=== PATIENT | female | born 1955 | race Caucasian/White ===

== ENCOUNTER → 2016-09-04 | Outpatient (CLI) | payer MEDICARE, MEDICAID ==
[~2016-09-04] MED LIST: /LINE60TA OR; ASCO25TA PO; ASPI81TA85 PO; CALC25TA PO; DARV100T OR; FERR325T3 PO; MULTCAP PO; NYST10CR TOP; OXYC10TA12 PO; OXYC15TA76 PO; PREV15CA11 PO; PREV30CA11 PO; PROT20TA11 PO; TYLE325T5 PO; VITA-193 PO; VITA500046 PO; VITA500T OR; XOPEAER INH; ZANA4TAB PO
[2016-09-04 09:26] LABS: MEAN CORPUSCULAR HEMOGLOBIN 29.3 pg (27.0-33.0); MEAN CORPUSCULAR HGB CONC 32.2 g/dl (32.0-36.5); RED CELL DISTRIBUTION WIDTH 12.5 % (11.5-14.5); WHITE BLOOD COUNT 5.9 K/mm3 (4.0-10.0)
[2016-09-04 10:05] LABS: ALBUMIN/GLOBULIN RATIO 1.18 (1.00-1.93); ALKALINE PHOSPHATASE 186 U/L (45-117); ALT/SGPT 19 U/L (12-78); ANION GAP 9 MEQ/L (8-16); AST/SGOT 14 U/L (15-37); BILIRUBIN,TOTAL 0.4 MG/DL (0.2-1.0); BLOOD UREA NITROGEN 26 MG/DL (7-18); CALCIUM LEVEL 9.2 MG/DL (8.8-10.2); CARBON DIOXIDE LEVEL 31 MEQ/L (21-32); CHLORIDE LEVEL 103 MEQ/L (98-107); CHOLESTEROL LEVEL 155 MG/DL (<200); CREATININE FOR GFR 0.69 MG/DL (0.55-1.02); FERRITIN 11 NG/ML (8-252); FREE T4 1.06 NG/DL (0.76-1.46); GLOMERULAR FILTRATION RATE > 60.0 (>45); GLUCOSE, FASTING 86 MG/DL (80-110); PERCENT SATURATION 13.4 % (13.2-37.4); POTASSIUM SERUM 4.4 MEQ/L (3.5-5.1); SODIUM LEVEL 143 MEQ/L (136-145); TOTAL IRON BINDING CAPACITY 419 UG/DL (250-450); TOTAL PROTEIN 7.4 GM/DL (6.4-8.2); TRIGLYCERIDES LEVEL 74 MG/DL (<150)
[2016-09-04 11:39] LABS: VITAMIN B12 LEVEL 495 PG/ML (247-911)
== END ==
LOC: M LAB 08:42
PROVIDERS: ATTEND Surgery
DX: K91.2 Postsurgical malabsorption, not elsewhere classified (principal); Z79.899 Other long term (current) drug therapy

== ENCOUNTER → 2016-11-15 | Outpatient (CLI) | payer MEDICARE, MEDICAID ==
--- NOTE | 2016-11-15 09:56 | REPMRS ---
Patient History The patient states she has not had a clinical breast exam in over a year. Family history of colorectal cancer in maternal cousin at age 32. Digital Woman Screen Mammo: November 15, 2016 - Exam #: [id number] Bilateral CC and MLO view(s) were taken. Technologist: Prachi Gerard, Technologist Prior study comparison: November 11, 2015, digital woman screen mammo performed at [facility] to [facility]. September 06, 2014, digital woman screen mammo performed at [facility] to [facility]. FINDINGS: There are scattered fibroglandular densities. There has been no change in the appearance of the mammogram from the prior studies. There is a mild amount of residual fibroglandular tissue which is fairly symmetric. There is no interval development of dominant mass, architectural distortion, or clustered microcalcification suggestive of malignancy. ASSESSMENT: BI-RADS/ACR category 1 mammogram. Negative. Recommendation Routine screening mammogram in 1 year (for women over age 40). This mammogram was interpreted with the aid of an FDA-approved computer-aided dectection system. Electronically Signed By: Samson Pinzon MD 11/15/16 0956
== END ==
LOC: M WHC 08:33
PROVIDERS: ATTEND Family Medicine
DX: Z12.31 Encounter for screening mammogram for malignant neoplasm of breast (principal)

== ENCOUNTER → 2016-11-29 | Outpatient (CLI) | payer MEDICARE ==
[2016-11-29 13:59] LABS: ALBUMIN 3.6 GM/DL (3.2-5.2); PERCENT SATURATION 13.3 % (13.2-37.4)
== END ==
LOC: M LAB 08:39
PROVIDERS: ATTEND Orthopaedic Surgery
DX: Z51.81 Encounter for therapeutic drug level monitoring (principal); Z79.899 Other long term (current) drug therapy; D64.9 Anemia, unspecified

== ENCOUNTER → 2016-11-29 | Outpatient (CLI) | payer MEDICARE ==
[2016-11-29 09:59] LABS: EOS # 0.2 K/mm3 (0.0-0.50); EOS % 3.1 % (0.0-3.0); LARGE UNSTAINED CELL # 0.1 K/mm3 (0.0-0.4); LARGE UNSTAINED CELL % 2.2 % (0.0-4.0); LYMPH # 1.5 K/mm3 (1.5-4.5); LYMPH % 29.6 % (24.0-44.0); MEAN CORPUSCULAR HEMOGLOBIN 27.8 pg (27.0-33.0); MEAN CORPUSCULAR HGB CONC 30.9 g/dl (32.0-36.5); MEAN CORPUSCULAR VOLUME 89.9 fl (80.0-96.0); MONO # 0.2 K/mm3 (0.0-0.8); MONO % 4.7 % (0.0-5.0); NEUTROPHILS # 2.9 K/mm3 (1.8-7.7); NEUTROPHILS % 59.4 % (36.0-66.0); PLATELET COUNT, AUTOMATED 272 k/mm3 (150-450); RED CELL DISTRIBUTION WIDTH 13.5 % (11.5-14.5); WHITE BLOOD COUNT 4.9 K/mm3 (4.0-10.0)
[2016-11-29 13:57] LABS: PERCENT SATURATION 13.3 % (13.2-37.4)
[2016-11-30 11:08] LABS: PRETREATED FOLATE FOR RBCFOL 8.7 NG/ML
== END ==
LOC: M LAB 08:32
PROVIDERS: ATTEND Family Medicine
DX: D50.9 Iron deficiency anemia, unspecified (principal); R73.01 Impaired fasting glucose

== ENCOUNTER → 2016-11-29 | Outpatient (CLI) | payer MEDICARE ==
[2016-11-29 10:00] LABS: MEAN CORPUSCULAR HEMOGLOBIN 27.7 pg (27.0-33.0); MEAN CORPUSCULAR HGB CONC 30.8 g/dl (32.0-36.5); MEAN CORPUSCULAR VOLUME 89.9 fl (80.0-96.0); RED CELL DISTRIBUTION WIDTH 13.5 % (11.5-14.5)
[2016-11-29 10:32] LABS: ALBUMIN 3.6 GM/DL (3.2-5.2); ALBUMIN/GLOBULIN RATIO 1.24 (1.00-1.93); ALKALINE PHOSPHATASE 158 U/L (45-117); ALT/SGPT 23 U/L (12-78); ANION GAP 7 MEQ/L (8-16); AST/SGOT 18 U/L (15-37); BILIRUBIN,TOTAL 0.4 MG/DL (0.2-1.0); BLOOD UREA NITROGEN 21 MG/DL (7-18); CALCIUM LEVEL 8.5 MG/DL (8.8-10.2); CARBON DIOXIDE LEVEL 29 MEQ/L (21-32); CHLORIDE LEVEL 106 MEQ/L (98-107); CHOLESTEROL LEVEL 152 MG/DL (<200); CREATININE FOR GFR 0.67 MG/DL (0.55-1.02); FERRITIN 8 NG/ML (8-252); GLOMERULAR FILTRATION RATE > 60.0 (>45); GLUCOSE, FASTING 83 MG/DL (80-110); PERCENT SATURATION 13.3 % (13.2-37.4); POTASSIUM SERUM 4.5 MEQ/L (3.5-5.1); SODIUM LEVEL 142 MEQ/L (136-145); TOTAL IRON BINDING CAPACITY 398 UG/DL (250-450); TOTAL PROTEIN 6.5 GM/DL (6.4-8.2); TRIGLYCERIDES LEVEL 99 MG/DL (<150)
[2016-11-29 11:00] LABS: VITAMIN B12 LEVEL 437 PG/ML (247-911)
== END ==
LOC: M LAB 08:35
PROVIDERS: ATTEND Surgery
DX: K91.2 Postsurgical malabsorption, not elsewhere classified (principal); Z51.81 Encounter for therapeutic drug level monitoring; Z79.899 Other long term (current) drug therapy; D50.9 Iron deficiency anemia, unspecified; R73.01 Impaired fasting glucose

== ENCOUNTER 2016-12-05 10:00 | Outpatient (RCR) | payer MEDICARE | END 2016-12-23 | LOC: M PT 10:00 | PROVIDERS: ATTEND Orthopaedic Surgery | DX: Z51.89 Encounter for other specified aftercare (principal); M17.12 Unilateral primary osteoarthritis, left knee ==

== ENCOUNTER → 2017-01-23 | Outpatient (RCR) | payer MEDICARE | LOC: M PT 01-11 08:32 | PROVIDERS: ATTEND Orthopaedic Surgery | DX: Z51.89 Encounter for other specified aftercare (principal); M17.12 Unilateral primary osteoarthritis, left knee | CPT/HCPCS: 97110; 97161; G8978; G8979 ==

== ENCOUNTER → 2017-02-22 | Outpatient (RCR) | payer MEDICARE ==
[~2017-02-22] MED LIST changes: +LEVAINH INH; -PREV15CA11 PO; +PREV15CA18 PO; +PREV1CAP PO; -PREV30CA11 PO; -XOPEAER INH
== END ==
LOC: M PT 01-28 09:26
PROVIDERS: ATTEND Orthopaedic Surgery
DX: Z51.89 Encounter for other specified aftercare (principal); M17.12 Unilateral primary osteoarthritis, left knee
CPT/HCPCS: 97110; G8978; G8979

== ENCOUNTER 2017-03-05 09:44 | Outpatient (RCR) | payer MEDICARE | END 2017-03-25 | LOC: M PT 09:44 | PROVIDERS: ATTEND Orthopaedic Surgery | DX: Z51.89 Encounter for other specified aftercare (principal); Z96.652 Presence of left artificial knee joint; M17.12 Unilateral primary osteoarthritis, left knee ==

== ENCOUNTER → 2017-04-05 | Outpatient (REF) | payer MEDICARE, MEDICAID ==
[2017-04-05 14:12] LABS: BASO # 0.1 K/mm3 (0.0-0.2); EOS # 0.2 K/mm3 (0.0-0.50); EOS % 2.5 % (0.0-3.0); LARGE UNSTAINED CELL # 0.1 K/mm3 (0.0-0.4); LARGE UNSTAINED CELL % 1.9 % (0.0-4.0); LYMPH # 1.9 K/mm3 (1.5-4.5); LYMPH % 24.2 % (24.0-44.0); MEAN CORPUSCULAR HEMOGLOBIN 29.2 pg (27.0-33.0); MEAN CORPUSCULAR HGB CONC 31.3 g/dl (32.0-36.5); MEAN CORPUSCULAR VOLUME 93.3 fl (80.0-96.0); MONO # 0.4 K/mm3 (0.0-0.8); MONO % 5.6 % (0.0-5.0); NEUTROPHILS # 4.8 K/mm3 (1.8-7.7); NEUTROPHILS % 64.9 % (36.0-66.0); PLATELET COUNT, AUTOMATED 318 k/mm3 (150-450); RED CELL DISTRIBUTION WIDTH 13.1 % (11.5-14.5); RETIC HEMOGLOBIN CONTENT CHr 29.7 PG (24-36); RETICULOCYTE ABSOLUTE ADVIA212 57 x10(9)/L (17-77); WHITE BLOOD COUNT 7.4 K/mm3 (4.0-10.0)
[2017-04-05 14:25] LABS: THYROID PEROXIDASE ANTIBODY 90.6 U/ML (<60.0); VITAMIN B12 LEVEL 434 PG/ML (247-911)
[2017-04-05 14:33] LABS: ALBUMIN 4.1 GM/DL (3.2-5.2); ALBUMIN/GLOBULIN RATIO 1.21 (1.00-1.93); ALKALINE PHOSPHATASE 207 U/L (45-117); ALT/SGPT 18 U/L (12-78); ANION GAP 9 MEQ/L (8-16); AST/SGOT 13 U/L (15-37); BILIRUBIN,TOTAL 0.4 MG/DL (0.2-1.0); BLOOD UREA NITROGEN 22 MG/DL (7-18); CALCIUM LEVEL 9.3 MG/DL (8.8-10.2); CARBON DIOXIDE LEVEL 29 MEQ/L (21-32); CHLORIDE LEVEL 105 MEQ/L (98-107); CREATININE FOR GFR 0.75 MG/DL (0.55-1.02); FERRITIN 20 NG/ML (8-252); FREE T4 1.08 NG/DL (0.76-1.46); GLOMERULAR FILTRATION RATE > 60.0 (>45); GLUCOSE, FASTING 81 MG/DL (80-110); PERCENT SATURATION 12.5 % (13.2-45.0); POTASSIUM SERUM 4.8 MEQ/L (3.5-5.1); SODIUM LEVEL 143 MEQ/L (136-145); TOTAL IRON BINDING CAPACITY 400 UG/DL (250-450); TOTAL PROTEIN 7.5 GM/DL (6.4-8.2)
[2017-04-09 00:06] LABS: H PYLORI SERUM QUANT IgG ABY <0.9 U/mL (0.0-0.8)
== END ==
LOC: M SFHCPLAZ 09:50
PROVIDERS: ATTEND Family Medicine
DX: D50.9 Iron deficiency anemia, unspecified (principal); R10.13 Epigastric pain; D51.9 Vitamin B12 deficiency anemia, unspecified; R73.01 Impaired fasting glucose; E55.9 Vitamin D deficiency, unspecified; Z79.899 Other long term (current) drug therapy
CPT/HCPCS: 36415; 80053; 82306; 82607; 82728; 83036; 83550; 83690; 83970; 84439; 84443; 85025; 85046; 86256; 86376; 86677; 86800; 96372; G0463; J3420

== ENCOUNTER 2017-08-07 15:47 | Emergency (ER) | payer MEDICARE, MEDICAID ==
[~2017-08-07] VITALS: Ht 162.6 cm; Wt 103.2 kg
[2017-08-07] MEDS ORDERED: METO25TA4 (15:59)
[2017-08-07] MEDS ORDERED: SUCR1TAB56 (15:59)
[2017-08-07] MEDS ORDERED: XARE20TA (15:59)
[2017-08-07] MEDS ORDERED: FLEC25TA (15:59)
[2017-08-07] MEDS ORDERED: PROTPAK PO (15:59)
--- NOTE | 2017-08-07 17:23 | REP ---
Chest x-ray: Three views. History: Shortness of breath. Comparison study: September 10, 2014. Findings: EKG monitoring electrodes overlie the chest. The lungs are well inflated and free of infiltrate. The heart is not felt to be enlarged. Pulmonary vasculature is not increased. There are degenerative changes in the thoracic spine and a mild dextroconvex curve is again seen unchanged. Impression: No active disease. Signed by Kenton Mir MD 08/08/2017 10:56 A
[2017-08-07 17:25] LABS: BASO # 0.1 10^3/uL (0.0-0.2); BASO % 0.8 % (0.0-1.0); EOS # 0.2 10^3/uL (0.0-0.50); EOS % 2.5 % (0.0-3.0); IMMATURE GRANULOCYTE % 0.2 % (0-0); LYMPH # 2.4 10^3/uL (1.5-4.5); LYMPH % 27.4 % (24.0-44.0); MEAN CORPUSCULAR HEMOGLOBIN 28.2 pg (27.0-33.0); MEAN CORPUSCULAR HGB CONC 31.4 g/dl (32.0-36.5); MEAN CORPUSCULAR VOLUME 89.9 fl (80.0-96.0); MONO # 0.5 10^3/uL (0.0-0.8); MONO % 5.8 % (0.0-5.0); NEUTROPHILS # 5.6 10^3/uL (1.8-7.7); NEUTROPHILS % 63.3 % (36.0-66.0); PLATELET COUNT, AUTOMATED 357 10^3/uL (150-450); RED CELL DISTRIBUTION WIDTH 13.3 % (11.5-14.5); WHITE BLOOD COUNT 8.8 10^3/uL (4.0-10.0)
[2017-08-07 17:32] LABS: ANION GAP 5 MEQ/L (8-16); BLOOD UREA NITROGEN 19 MG/DL (7-18); CALCIUM LEVEL 9.3 MG/DL (8.8-10.2); CARBON DIOXIDE LEVEL 31 MEQ/L (21-32); CHLORIDE LEVEL 103 MEQ/L (98-107); CREATININE FOR GFR 0.77 MG/DL (0.55-1.02); GLOMERULAR FILTRATION RATE > 60.0 (>45); GLUCOSE, FASTING 83 MG/DL (80-110); POTASSIUM SERUM 4.3 MEQ/L (3.5-5.1); SODIUM LEVEL 139 MEQ/L (136-145)
[2017-08-07 17:39] VITALS: BP 142/65
--- NOTE | 2017-08-08 04:47 | ECGEPIP ---
Stationary ECG Study [facility] - ED Test Date: 2017-08-07 Pat Name: NISHA MUNSON Department: Room: - Gender: F Vp Purchasing: viv : 1955 Requested By: Taz Kriby Order Number: [id number] Reading MD: Taz Suarez Measurements Intervals [place] Rate: 64 P: 64 TN: 203 QRS: 30 QRSD: 113 T: 42 QT: 416 QTc: 431 Interpretive Statements SINUS RHYTHM WITH FREQUENT SUPRAVENTRICULAR PREMATURE COMPLEXES MODERATE INTRAVENTRICULAR CONDUCTION DELAY SIMILAR TO 09/16/15 Electronically Signed On 08-08-2017 4:47:30 EST by Taz Suarez
== END 2017-08-07 17:58 | disposition home or self-care (01) ==
LOC: M ED 15:47
DX: I48.0 Paroxysmal atrial fibrillation (principal); R60.0 Localized edema; I10 Essential (primary) hypertension; K76.0 Fatty (change of) liver, not elsewhere classified; Z86.14 Personal history of Methicillin resistant Staphylococcus aureus infection; Z86.718 Personal history of other venous thrombosis and embolism; Z79.899 Other long term (current) drug therapy; Z88.5 Allergy status to narcotic agent; Z88.0 Allergy status to penicillin; Z88.2 Allergy status to sulfonamides; Z88.8 Allergy status to other drugs, medicaments and biological substances; Z88.1 Allergy status to other antibiotic agents

== ENCOUNTER → 2017-08-13 | Outpatient (REF) | payer MEDICARE, MEDICAID ==
[~2017-08-13] MED LIST changes: +FLEC25TA; +METO25TA4; +PROTPAK PO; +SUCR1TAB56; +XARE20TA
[2017-08-13 15:57] LABS: BASO # 0.1 10^3/uL (0.0-0.2); BASO % 1.4 % (0.0-1.0); EOS # 0.2 10^3/uL (0.0-0.50); EOS % 2.4 % (0.0-3.0); IMMATURE GRANULOCYTE % 0.1 % (0-0); LYMPH # 2.1 10^3/uL (1.5-4.5); LYMPH % 29.7 % (24.0-44.0); MEAN CORPUSCULAR HEMOGLOBIN 27.7 pg (27.0-33.0); MEAN CORPUSCULAR HGB CONC 30.7 g/dl (32.0-36.5); MONO # 0.4 10^3/uL (0.0-0.8); MONO % 6.3 % (0.0-5.0); NEUTROPHILS # 4.2 10^3/uL (1.8-7.7); NEUTROPHILS % 60.1 % (36.0-66.0); PLATELET COUNT, AUTOMATED 358 10^3/uL (150-450); RED CELL DISTRIBUTION WIDTH 13.5 % (11.5-14.5)
[2017-08-13 16:25] LABS: ALBUMIN 4.1 GM/DL (3.2-5.2); ALBUMIN/GLOBULIN RATIO 1.21 (1.00-1.93); ALKALINE PHOSPHATASE 230 U/L (45-117); ALT/SGPT 17 U/L (12-78); ANION GAP 5 MEQ/L (8-16); AST/SGOT 14 U/L (7-37); BILIRUBIN,TOTAL 0.4 MG/DL (0.2-1.0); BLOOD UREA NITROGEN 20 MG/DL (7-18); CALCIUM LEVEL 8.8 MG/DL (8.8-10.2); CARBON DIOXIDE LEVEL 30 MEQ/L (21-32); CHLORIDE LEVEL 106 MEQ/L (98-107); CREATININE FOR GFR 0.68 MG/DL (0.55-1.02); FERRITIN 14 NG/ML (8-252); FREE T4 1.08 NG/DL (0.76-1.46); GLOMERULAR FILTRATION RATE > 60.0 (>45); GLUCOSE, FASTING 90 MG/DL (80-110); PERCENT SATURATION 13.4 % (13.2-45.0); POTASSIUM SERUM 4.6 MEQ/L (3.5-5.1); SODIUM LEVEL 141 MEQ/L (136-145); TOTAL IRON BINDING CAPACITY 409 UG/DL (250-450); TOTAL PROTEIN 7.5 GM/DL (6.4-8.2)
== END ==
LOC: M SFHCPLAZ 12:16
PROVIDERS: ATTEND Family Medicine
DX: R73.01 Impaired fasting glucose (principal); D50.9 Iron deficiency anemia, unspecified; E06.3 Autoimmune thyroiditis

== ENCOUNTER → 2017-08-14 | Outpatient (CLI) | payer MEDICARE, MEDICAID ==
--- NOTE | 2017-08-20 18:20 | SLEEPHOME ---
DATE OF PROCEDURE: 08/14/2017 ORDERED BY: Dr. Guevara Diagnostic home sleep testing was performed due to concern for the obstructive sleep apnea syndrome. For testing, a NOX-T3 respiratory monitoring device was used. Continuous record was made of pulse, oxygen saturation, air flow, chest and abdominal strain and body position. 11 hours and 59 minutes of data were reviewed. There were 9 hours and 2 minutes marked as time in bed. During the interval marked time in bed, there were 149 respiratory events identified of 10 seconds in duration or greater for a respiratory event index of 16.5. The events were primarily obstructive, though mixed and central apneas were also seen. Baseline pulse rate 55 beats per minute. Pulse rate ranged 37 to 73. Baseline saturation 94%. Lowest oxygen saturation 88%. Testing was performed in both the supine and nonsupine positions. IMPRESSION: Abnormal home sleep testing with repetitive respiratory events and oxygen desaturation to 88% with a respiratory event index of 16.5 is consistent with the obstructive sleep apnea syndrome. RECOMMENDATION: Given the progression identified when compared to previous testing in the spring, the patient should be referred for a formal sleep evaluation and in laboratory pressure titration.
== END ==
LOC: M SLEEP HO 10:52
PROVIDERS: ATTEND Family Medicine
DX: G47.30 Sleep apnea, unspecified (principal)

== ENCOUNTER → 2017-09-21 | Outpatient (CLI) | payer MEDICARE, MEDICAID | LOC: M SLEEP 20:00 | DX: G47.33 Obstructive sleep apnea (adult) (pediatric) (principal); G47.61 Periodic limb movement disorder | CPT/HCPCS: 95811 ==

== ENCOUNTER 2017-10-18 15:45 | Emergency (ER) | payer MEDICARE, MEDICAID ==
[2017-10-18] MEDS: MORPHINE 10 MG/ML 1ML VIAL (J2270) IM (19:12)
== END 2017-10-18 20:49 | disposition home or self-care (01) ==
LOC: M ED 15:45
DX: M25.552 Pain in left hip (principal); I10 Essential (primary) hypertension; I48.91 Unspecified atrial fibrillation; E66.9 Obesity, unspecified; E55.9 Vitamin D deficiency, unspecified; D64.9 Anemia, unspecified; R73.01 Impaired fasting glucose; Z88.8 Allergy status to other drugs, medicaments and biological substances; Z88.5 Allergy status to narcotic agent; Z88.4 Allergy status to anesthetic agent; Z88.2 Allergy status to sulfonamides; Z88.0 Allergy status to penicillin; Z88.1 Allergy status to other antibiotic agents; Z79.899 Other long term (current) drug therapy; Z79.01 Long term (current) use of anticoagulants
CPT/HCPCS: J2270

== ENCOUNTER → 2017-10-24 | Outpatient (CLI) | payer MEDICARE | LOC: M SMT 11:03 | DX: M16.7 Other unilateral secondary osteoarthritis of hip (principal) | CPT/HCPCS: 72110; G0463 ==

== ENCOUNTER 2017-11-26 10:34 | Outpatient (RCR) | payer MEDICARE, MEDICAID | END 2017-12-23 | LOC: M PT 10:34 | DX: Z51.89 Encounter for other specified aftercare (principal); M47.27 Other spondylosis with radiculopathy, lumbosacral region | CPT/HCPCS: 97110 ==

== ENCOUNTER → 2017-12-10 | Outpatient (CLI) | payer MEDICARE, MEDICAID | LOC: M PAIN 15:30 | DX: M54.16 Radiculopathy, lumbar region (principal); I10 Essential (primary) hypertension; J30.9 Allergic rhinitis, unspecified; K76.0 Fatty (change of) liver, not elsewhere classified; E55.9 Vitamin D deficiency, unspecified; R73.01 Impaired fasting glucose; K21.9 Gastro-esophageal reflux disease without esophagitis; G47.33 Obstructive sleep apnea (adult) (pediatric); E66.01 Morbid (severe) obesity due to excess calories; Z68.41 Body mass index [BMI] 40.0-44.9, adult; Z79.01 Long term (current) use of anticoagulants; Z79.899 Other long term (current) drug therapy; Z88.0 Allergy status to penicillin; Z88.1 Allergy status to other antibiotic agents; Z88.5 Allergy status to narcotic agent; Z88.8 Allergy status to other drugs, medicaments and biological substances; Z86.59 Personal history of other mental and behavioral disorders; Z87.891 Personal history of nicotine dependence; Z98.84 Bariatric surgery status | CPT/HCPCS: G0463 ==

== ENCOUNTER → 2017-12-21 | Outpatient (CLI) | payer MEDICARE, MEDICAID | LOC: M RAD 08:30 | DX: M54.16 Radiculopathy, lumbar region (principal) | CPT/HCPCS: 72148 ==

== ENCOUNTER → 2017-12-24 | Outpatient (CLI) | payer MEDICARE, MEDICAID | LOC: M PAIN 10:30 | DX: G89.29 Other chronic pain (principal); M54.16 Radiculopathy, lumbar region; M46.1 Sacroiliitis, not elsewhere classified; M51.26 Other intervertebral disc displacement, lumbar region; I10 Essential (primary) hypertension; J30.9 Allergic rhinitis, unspecified; K76.0 Fatty (change of) liver, not elsewhere classified; E66.01 Morbid (severe) obesity due to excess calories; E55.9 Vitamin D deficiency, unspecified; G47.33 Obstructive sleep apnea (adult) (pediatric); D50.9 Iron deficiency anemia, unspecified; I48.0 Paroxysmal atrial fibrillation; R73.01 Impaired fasting glucose; K21.9 Gastro-esophageal reflux disease without esophagitis; Z87.891 Personal history of nicotine dependence; Z98.84 Bariatric surgery status; Z79.01 Long term (current) use of anticoagulants; Z68.41 Body mass index [BMI] 40.0-44.9, adult; Z79.891 Long term (current) use of opiate analgesic; Z79.899 Other long term (current) drug therapy; Z88.0 Allergy status to penicillin; Z88.1 Allergy status to other antibiotic agents; Z88.5 Allergy status to narcotic agent; Z88.8 Allergy status to other drugs, medicaments and biological substances | CPT/HCPCS: G0463 ==

== ENCOUNTER 2017-12-25 07:46 | Outpatient (RCR) | payer MEDICARE, MEDICAID | END 2018-01-23 | disposition home or self-care (01) | LOC: M PT 07:46 | DX: Z51.89 Encounter for other specified aftercare (principal); M47.27 Other spondylosis with radiculopathy, lumbosacral region | CPT/HCPCS: 97110 ==

== ENCOUNTER 2018-01-29 08:16 | Outpatient (RCR) | payer MEDICARE, MEDICAID | END 2018-02-22 | LOC: M PT 08:16 | DX: Z51.89 Encounter for other specified aftercare (principal); M47.27 Other spondylosis with radiculopathy, lumbosacral region | CPT/HCPCS: 97110 ==

== ENCOUNTER → 2018-02-04 | Outpatient (REF) | payer MEDICARE, MEDICAID ==
[2018-02-04 12:52] LABS: BASO # 0.1 10^3/uL (0.0-0.2); BASO % 0.9 % (0.0-1.0); EOS # 0.2 10^3/uL (0.0-0.50); EOS % 2.4 % (0.0-3.0); HEMATOCRIT 40.4 % (36.0-47.0); HEMOGLOBIN 12.3 g/dl (12.0-15.5); IMMATURE GRANULOCYTE % 0.3 % (0-3.0); LYMPH % 25.8 % (24.0-44.0); MEAN CORPUSCULAR HEMOGLOBIN 28.3 pg (27.0-33.0); MEAN CORPUSCULAR HGB CONC 30.4 g/dl (32.0-36.5); MEAN CORPUSCULAR VOLUME 93.1 fl (80.0-96.0); MONO # 0.5 10^3/uL (0.0-0.8); MONO % 5.9 % (0.0-5.0); NEUTROPHILS # 5.1 10^3/uL (1.8-7.7); NEUTROPHILS % 64.7 % (36.0-66.0); PLATELET COUNT, AUTOMATED 318 10^3/uL (150-450); RED BLOOD COUNT 4.34 10^6/uL (4.00-5.40); RED CELL DISTRIBUTION WIDTH 13.7 % (11.5-14.5); RETIC HEMOGLOBIN EQUIVALENT 31.5 pg (24-36); RETICULOCYTE # 62.5 10^9/L (17-77); RETICULOCYTE % 1.4 % (0.5-1.5); WHITE BLOOD COUNT 7.8 10^3/uL (4.0-10.0)
[2018-02-04 12:55] LABS: ALBUMIN 3.6 GM/DL (3.2-5.2); ALBUMIN/GLOBULIN RATIO 1.09 (1.00-1.93); ALKALINE PHOSPHATASE 192 U/L (45-117); ALT/SGPT 18 U/L (12-78); ANION GAP 6 MEQ/L (8-16); AST/SGOT 14 U/L (7-37); BILIRUBIN,TOTAL 0.4 MG/DL (0.2-1.0); BLOOD UREA NITROGEN 21 MG/DL (7-18); C REACTIVE PROTEIN QUANTITATIV 0.42 MG/DL (0.00-0.30); CALCIUM LEVEL 9.1 MG/DL (8.8-10.2); CARBON DIOXIDE LEVEL 31 MEQ/L (21-32); CHLORIDE LEVEL 107 MEQ/L (98-107); CHOLESTEROL LEVEL 164 MG/DL (<200); CHOLESTEROL RISK RATIO 2.376 (<5); CPK CREATINE PHOSPHOKINASE 37 U/L (26-192); CREATININE FOR GFR 0.69 MG/DL (0.55-1.30); GLOMERULAR FILTRATION RATE > 60.0 (>45); GLUCOSE, FASTING 83 MG/DL (70-100); HDL CHOLESTEROL 69 MG/DL (>40); NON-HDL-C 95 MG/DL; POTASSIUM SERUM 4.5 MEQ/L (3.5-5.1); SODIUM LEVEL 144 MEQ/L (136-145); TOTAL PROTEIN 6.9 GM/DL (6.4-8.2); TRIGLYCERIDES LEVEL 90 MG/DL (<150)
[2018-02-04 12:57] LABS: PTH INTACT 51.7 PG/ML (18.5-88.0); TOTAL 25(OH) VITAMIN D 13.9 NG/ML (30.0-100.0); VITAMIN B12 LEVEL > 2000 PG/ML (247-911)
[2018-02-04 13:04] LABS: HEMATOCRIT 40.4 % (36.0-47.0)
[2018-02-04 14:26] LABS: PRETREATED FOLATE FOR RBCFOL 13.6 NG/ML; RBC FOLATE 706.9 NG/ML (280-791)
== END ==
LOC: M SFHCPLAZ 08:43
DX: D51.9 Vitamin B12 deficiency anemia, unspecified (principal); R73.01 Impaired fasting glucose; E55.9 Vitamin D deficiency, unspecified; E66.01 Morbid (severe) obesity due to excess calories; Z68.41 Body mass index [BMI] 40.0-44.9, adult
CPT/HCPCS: 82550

== ENCOUNTER → 2018-02-11 | Outpatient (CLI) | payer MEDICARE, MEDICAID | LOC: M PAIN 13:15 | DX: M54.16 Radiculopathy, lumbar region (principal); M46.1 Sacroiliitis, not elsewhere classified; M51.26 Other intervertebral disc displacement, lumbar region; M46.96 Unspecified inflammatory spondylopathy, lumbar region; I10 Essential (primary) hypertension; K21.9 Gastro-esophageal reflux disease without esophagitis; R73.01 Impaired fasting glucose; D50.9 Iron deficiency anemia, unspecified; Z79.891 Long term (current) use of opiate analgesic; Z79.899 Other long term (current) drug therapy; Z98.84 Bariatric surgery status; Z95.828 Presence of other vascular implants and grafts; Z86.718 Personal history of other venous thrombosis and embolism; Z86.14 Personal history of Methicillin resistant Staphylococcus aureus infection; Z87.891 Personal history of nicotine dependence; Z88.8 Allergy status to other drugs, medicaments and biological substances; Z88.0 Allergy status to penicillin | CPT/HCPCS: G0463 ==

== ENCOUNTER → 2018-03-10 | Outpatient (CLI) | payer MEDICARE, OTHER, MEDICAID ==
[~2018-03-10] MED LIST changes: -/LINE60TA OR; -ASCO25TA PO; -ASPI81TA85 PO; +BUPIVACAINE HCL 0.25% 30 ML VIAL As Ordered; -CALC25TA PO; -DARV100T OR; -FERR325T3 PO; -FLEC25TA; +ISOVUE-M 300 61% 15ML VIAL (Q9967) As Ordered; -LEVAINH INH; +LIDOCAINE 1% SDV INJ 30 ML VIAL As Ordered; -METO25TA4; -MULTCAP PO; -NYST10CR TOP; -OXYC10TA12 PO; -OXYC15TA76 PO; -PREV15CA18 PO; -PREV1CAP PO; -PROT20TA11 PO; -PROTPAK PO; -SUCR1TAB56; +TRIAMCINOLONE ACETONIDE SUSP 40 MG/ML VIAL (J3301) As Ordered; -TYLE325T5 PO; -VITA-193 PO; -VITA500046 PO; -VITA500T OR; -XARE20TA; -ZANA4TAB PO; +diazePAM 5 MG TAB As Ordered; +oxyCODONE 5MG TAB As Ordered
== END ==
LOC: M PAIN 08:30
DX: G89.29 Other chronic pain (principal); M46.1 Sacroiliitis, not elsewhere classified; I10 Essential (primary) hypertension; J30.9 Allergic rhinitis, unspecified; K76.0 Fatty (change of) liver, not elsewhere classified; E55.9 Vitamin D deficiency, unspecified; D50.9 Iron deficiency anemia, unspecified; R73.01 Impaired fasting glucose; K21.9 Gastro-esophageal reflux disease without esophagitis; I48.0 Paroxysmal atrial fibrillation; G47.33 Obstructive sleep apnea (adult) (pediatric); M51.36 Other intervertebral disc degeneration, lumbar region; Z87.891 Personal history of nicotine dependence; Z86.14 Personal history of Methicillin resistant Staphylococcus aureus infection; Z98.84 Bariatric surgery status; Z88.0 Allergy status to penicillin; Z88.1 Allergy status to other antibiotic agents; Z88.2 Allergy status to sulfonamides; Z88.5 Allergy status to narcotic agent; Z88.8 Allergy status to other drugs, medicaments and biological substances; Z79.891 Long term (current) use of opiate analgesic; Z79.899 Other long term (current) drug therapy
CPT/HCPCS: J3301

== ENCOUNTER → 2018-03-31 | Outpatient (CLI) | payer MEDICARE, OTHER, MEDICAID | LOC: M PAIN 09:15 | DX: M51.16 Intervertebral disc disorders with radiculopathy, lumbar region (principal); M46.1 Sacroiliitis, not elsewhere classified; I10 Essential (primary) hypertension; J30.9 Allergic rhinitis, unspecified; K76.0 Fatty (change of) liver, not elsewhere classified; E55.9 Vitamin D deficiency, unspecified; D50.9 Iron deficiency anemia, unspecified; R73.01 Impaired fasting glucose; K21.9 Gastro-esophageal reflux disease without esophagitis; I48.0 Paroxysmal atrial fibrillation; G47.33 Obstructive sleep apnea (adult) (pediatric); Z86.14 Personal history of Methicillin resistant Staphylococcus aureus infection; Z98.84 Bariatric surgery status; Z96.652 Presence of left artificial knee joint; Z87.891 Personal history of nicotine dependence; Z88.0 Allergy status to penicillin; Z88.1 Allergy status to other antibiotic agents; Z88.2 Allergy status to sulfonamides; Z88.5 Allergy status to narcotic agent; Z88.8 Allergy status to other drugs, medicaments and biological substances; Z88.4 Allergy status to anesthetic agent; Z79.01 Long term (current) use of anticoagulants; Z79.891 Long term (current) use of opiate analgesic; Z79.899 Other long term (current) drug therapy | CPT/HCPCS: G0463 ==

== ENCOUNTER → 2018-04-14 | Outpatient (CLI) | payer MEDICARE, MEDICAID | LOC: M WHC 14:12 | DX: Z12.31 Encounter for screening mammogram for malignant neoplasm of breast (principal); M85.852 Other specified disorders of bone density and structure, left thigh; M85.851 Other specified disorders of bone density and structure, right thigh; M85.88 Other specified disorders of bone density and structure, other site | CPT/HCPCS: 77067 ==

== ENCOUNTER → 2018-04-15 | Outpatient (CLI) | payer MEDICARE, OTHER, MEDICAID ==
[~2018-04-15] MED LIST changes: -BUPIVACAINE HCL 0.25% 30 ML VIAL As Ordered; -TRIAMCINOLONE ACETONIDE SUSP 40 MG/ML VIAL (J3301) As Ordered; +methylPREDNISolone SUSP 40 MG/ML (DEPO-medrol) VIAL (J1030) As Ordered
== END ==
LOC: M PAIN 10:45
DX: M51.16 Intervertebral disc disorders with radiculopathy, lumbar region (principal); I10 Essential (primary) hypertension; J30.9 Allergic rhinitis, unspecified; K76.0 Fatty (change of) liver, not elsewhere classified; E66.01 Morbid (severe) obesity due to excess calories; E55.9 Vitamin D deficiency, unspecified; D50.9 Iron deficiency anemia, unspecified; R73.01 Impaired fasting glucose; K21.9 Gastro-esophageal reflux disease without esophagitis; I48.0 Paroxysmal atrial fibrillation; G47.33 Obstructive sleep apnea (adult) (pediatric); Z98.84 Bariatric surgery status; Z87.891 Personal history of nicotine dependence; Z86.14 Personal history of Methicillin resistant Staphylococcus aureus infection; Z96.652 Presence of left artificial knee joint; Z68.42 Body mass index [BMI] 45.0-49.9, adult; Z88.0 Allergy status to penicillin; Z88.1 Allergy status to other antibiotic agents; Z88.5 Allergy status to narcotic agent; Z88.8 Allergy status to other drugs, medicaments and biological substances; Z79.01 Long term (current) use of anticoagulants; Z79.891 Long term (current) use of opiate analgesic; Z79.899 Other long term (current) drug therapy
CPT/HCPCS: J1030

== ENCOUNTER → 2018-04-30 | Outpatient (CLI) | payer MEDICARE, OTHER, MEDICAID | LOC: M PAIN 10:15 | DX: M54.16 Radiculopathy, lumbar region (principal); M46.1 Sacroiliitis, not elsewhere classified; M51.26 Other intervertebral disc displacement, lumbar region; I10 Essential (primary) hypertension; J30.9 Allergic rhinitis, unspecified; K76.0 Fatty (change of) liver, not elsewhere classified; E55.9 Vitamin D deficiency, unspecified; D50.9 Iron deficiency anemia, unspecified; R73.01 Impaired fasting glucose; G47.33 Obstructive sleep apnea (adult) (pediatric); E66.01 Morbid (severe) obesity due to excess calories; Z68.42 Body mass index [BMI] 45.0-49.9, adult; Z79.01 Long term (current) use of anticoagulants; Z79.899 Other long term (current) drug therapy; Z88.0 Allergy status to penicillin; Z88.1 Allergy status to other antibiotic agents; Z88.5 Allergy status to narcotic agent; Z88.8 Allergy status to other drugs, medicaments and biological substances; Z86.79 Personal history of other diseases of the circulatory system; Z98.84 Bariatric surgery status; Z87.891 Personal history of nicotine dependence | CPT/HCPCS: G0463 ==

== ENCOUNTER → 2018-05-19 | Outpatient (CLI) | payer MEDICARE, OTHER, MEDICAID ==
[~2018-05-19] MED LIST changes: +BUPIVACAINE HCL 0.25% 30 ML VIAL As Ordered; +TRIAMCINOLONE ACETONIDE SUSP 40 MG/ML VIAL (J3301) As Ordered; -methylPREDNISolone SUSP 40 MG/ML (DEPO-medrol) VIAL (J1030) As Ordered
== END ==
LOC: M PAIN 11:00
DX: M46.1 Sacroiliitis, not elsewhere classified (principal); I10 Essential (primary) hypertension; J30.9 Allergic rhinitis, unspecified; K76.0 Fatty (change of) liver, not elsewhere classified; E66.01 Morbid (severe) obesity due to excess calories; Z68.42 Body mass index [BMI] 45.0-49.9, adult; Z98.84 Bariatric surgery status; E55.9 Vitamin D deficiency, unspecified; D50.9 Iron deficiency anemia, unspecified; R73.01 Impaired fasting glucose; K21.9 Gastro-esophageal reflux disease without esophagitis; G47.33 Obstructive sleep apnea (adult) (pediatric); M51.36 Other intervertebral disc degeneration, lumbar region; Z86.14 Personal history of Methicillin resistant Staphylococcus aureus infection; Z86.718 Personal history of other venous thrombosis and embolism; Z87.891 Personal history of nicotine dependence; Z88.0 Allergy status to penicillin; Z88.1 Allergy status to other antibiotic agents; Z88.6 Allergy status to analgesic agent; Z88.2 Allergy status to sulfonamides; Z88.5 Allergy status to narcotic agent; Z88.8 Allergy status to other drugs, medicaments and biological substances; Z79.01 Long term (current) use of anticoagulants; Z79.891 Long term (current) use of opiate analgesic; Z79.899 Other long term (current) drug therapy
CPT/HCPCS: J3301

== ENCOUNTER → 2018-06-11 | Outpatient (CLI) | payer MEDICARE, OTHER, MEDICAID | LOC: M PAIN 09:30 | DX: M54.16 Radiculopathy, lumbar region (principal); M46.1 Sacroiliitis, not elsewhere classified; M51.26 Other intervertebral disc displacement, lumbar region; I10 Essential (primary) hypertension; J30.9 Allergic rhinitis, unspecified; E55.9 Vitamin D deficiency, unspecified; D50.9 Iron deficiency anemia, unspecified; R73.01 Impaired fasting glucose; K21.9 Gastro-esophageal reflux disease without esophagitis; I48.91 Unspecified atrial fibrillation; G47.33 Obstructive sleep apnea (adult) (pediatric); Z79.01 Long term (current) use of anticoagulants; Z79.899 Other long term (current) drug therapy; Z88.0 Allergy status to penicillin; Z88.1 Allergy status to other antibiotic agents; Z88.5 Allergy status to narcotic agent; Z88.8 Allergy status to other drugs, medicaments and biological substances; Z98.84 Bariatric surgery status; Z86.79 Personal history of other diseases of the circulatory system; Z87.891 Personal history of nicotine dependence; Z86.19 Personal history of other infectious and parasitic diseases | CPT/HCPCS: G0463 ==

== ENCOUNTER → 2018-06-13 | Outpatient (REF) | payer OTHER, MEDICAID ==
[2018-06-13 14:00] LABS: APPEARANCE, URINE HAZY (CLEAR); BACTERIA, URINE AUTO 1+ (NEGATIVE); BILIRUBIN, URINE AUTO NEGATIVE (NEGATIVE); BLOOD, URINE BLOOD NEGATIVE (NEGATIVE); COLOR, URINE AMBER (YELLOW); GLUCOSE, URINE (UA) AUTO NEGATIVE (NEGATIVE); KETONE, URINE AUTO TRACE mg/dL (NEGATIVE); LEUKOCYTE ESTERASE, URINE AUTO 3+ (NEGATIVE); MUCUS, URINE SMALL (NEGATIVE); NITRITE, URINE AUTO NEGATIVE (NEGATIVE); PROTEIN, URINE AUTO NEGATIVE (NEGATIVE); RBC, URINE AUTO 1 /HPF (0-3); SPECIFIC GRAVITY URINE AUTO 1.025 (1.002-1.035); SQUAMOUS EPITHELIAL CELL UR AU 2 /HPF (0-6); WBC, URINE AUTO 22 /HPF (0-3)
== END ==
LOC: M SFHCPLAZ 11:40
DX: N32.81 Overactive bladder (principal)
CPT/HCPCS: 81001

== ENCOUNTER → 2018-06-17 | Outpatient (REF) | payer OTHER, MEDICAID | LOC: M SFHCPLAZ 10:52 | DX: R39.9 Unspecified symptoms and signs involving the genitourinary system (principal) | CPT/HCPCS: 87086 ==

== ENCOUNTER 2018-06-18 12:36 | Outpatient (RCR) | payer MEDICARE, MEDICAID | END 2018-06-25 | LOC: M PT 12:36 | DX: Z51.89 Encounter for other specified aftercare (principal); M54.16 Radiculopathy, lumbar region; M46.1 Sacroiliitis, not elsewhere classified; M51.26 Other intervertebral disc displacement, lumbar region | CPT/HCPCS: 97110 ==

== ENCOUNTER 2018-06-24 11:50 | Outpatient (CLI) | payer MEDICARE, MEDICAID ==
[2018-06-24] MEDS: ZOLEDRONIC ACID 5 MG in APPROPRIATE DILUENT 1 EA IV (12:15)
== END 2018-06-24 13:25 | disposition home or self-care (01) ==
LOC: M INFU 11:50
DX: M85.80 Other specified disorders of bone density and structure, unspecified site (principal); Z79.899 Other long term (current) drug therapy; Z88.0 Allergy status to penicillin; Z88.2 Allergy status to sulfonamides; Z88.5 Allergy status to narcotic agent; Z88.8 Allergy status to other drugs, medicaments and biological substances
CPT/HCPCS: J3489

== ENCOUNTER 2018-07-01 10:29 | Outpatient (RCR) | payer MEDICARE, MEDICAID | END 2018-07-25 | LOC: M PT 10:29 | DX: M54.16 Radiculopathy, lumbar region (principal); M46.1 Sacroiliitis, not elsewhere classified; M51.26 Other intervertebral disc displacement, lumbar region | CPT/HCPCS: 97110 ==

== ENCOUNTER → 2018-07-28 | Outpatient (REF) | payer MEDICARE, MEDICAID ==
[2018-07-28 13:05] LABS: BASO # 0.1 10^3/uL (0.0-0.2); BASO % 0.9 % (0.0-1.0); EOS # 0.2 10^3/uL (0.0-0.50); EOS % 3.1 % (0.0-3.0); HEMATOCRIT 37.4 % (36.0-47.0); HEMOGLOBIN 11.1 g/dl (12.0-15.5); IMMATURE GRANULOCYTE % 0.6 % (0-3.0); LYMPH # 1.9 10^3/uL (1.5-4.5); LYMPH % 26.9 % (24.0-44.0); MEAN CORPUSCULAR HEMOGLOBIN 26.9 pg (27.0-33.0); MEAN CORPUSCULAR HGB CONC 29.7 g/dl (32.0-36.5); MEAN CORPUSCULAR VOLUME 90.8 fl (80.0-96.0); MONO # 0.5 10^3/uL (0.0-0.8); MONO % 6.8 % (0.0-5.0); NEUTROPHILS # 4.2 10^3/uL (1.8-7.7); NEUTROPHILS % 61.7 % (36.0-66.0); PLATELET COUNT, AUTOMATED 368 10^3/uL (150-450); RED BLOOD COUNT 4.12 10^6/uL (4.00-5.40); RED CELL DISTRIBUTION WIDTH 14.7 % (11.5-14.5); WHITE BLOOD COUNT 6.9 10^3/uL (4.0-10.0)
[2018-07-28 13:06] LABS: ALBUMIN 3.6 GM/DL (3.2-5.2); ALKALINE PHOSPHATASE 173 U/L (45-117); ALT/SGPT 14 U/L (12-78); ANION GAP 5 MEQ/L (8-16); AST/SGOT 11 U/L (7-37); BILIRUBIN,TOTAL 0.3 MG/DL (0.2-1.0); BLOOD UREA NITROGEN 17 MG/DL (7-18); CALCIUM LEVEL 8.4 MG/DL (8.8-10.2); CARBON DIOXIDE LEVEL 28 MEQ/L (21-32); CHLORIDE LEVEL 110 MEQ/L (98-107); CREATININE FOR GFR 0.65 MG/DL (0.55-1.30); FERRITIN 9 NG/ML (8-252); GLOMERULAR FILTRATION RATE > 60.0 (>45); GLUCOSE, FASTING 93 MG/DL (70-100); IRON (FE) 27 UG/DL (50-170); PERCENT SATURATION 7.3 % (13.2-45.0); POTASSIUM SERUM 4.1 MEQ/L (3.5-5.1); SODIUM LEVEL 143 MEQ/L (136-145); TOTAL IRON BINDING CAPACITY 371 UG/DL (250-450); TOTAL PROTEIN 6.6 GM/DL (6.4-8.2)
[2018-07-28 14:05] LABS: VITAMIN B12 LEVEL 543 PG/ML (247-911)
[2018-07-28 14:21] LABS: ESTIMATED AVERAGE GLUCOSE 120 MG/DL (60-110); HEMOGLOBIN A1c 5.8 %
[2018-07-29 14:13] LABS: INSULIN LEVEL 9.2 uIU/mL (2.6-24.9)
== END ==
LOC: M SFHCPLAZ 08:11
DX: D51.9 Vitamin B12 deficiency anemia, unspecified (principal); R73.01 Impaired fasting glucose
CPT/HCPCS: 83525

== ENCOUNTER 2018-07-30 08:26 | Outpatient (RCR) | payer MEDICARE, MEDICAID ==
[~2018-07-30 08:26] MED LIST changes: +/LINE60TA OR; +ASCO25TA PO; +ASPI81TA85 PO; -BUPIVACAINE HCL 0.25% 30 ML VIAL As Ordered; +CALC25TA PO; +DARV100T OR; +FERR325T3 PO; +FLEC25TA; -ISOVUE-M 300 61% 15ML VIAL (Q9967) As Ordered; +LEVAINH INH; -LIDOCAINE 1% SDV INJ 30 ML VIAL As Ordered; +MACR100C43 PO; +METO1TAB87 PO; +METO25TA4; +MULTCAP PO; +NYST10CR TOP; +OXYC10TA12 PO; +OXYC15TA76 PO; +PREV15CA18 PO; +PREV1CAP PO; +PROT20TA11 PO; +PROTPAK PO; +SUCR1TAB56; -TRIAMCINOLONE ACETONIDE SUSP 40 MG/ML VIAL (J3301) As Ordered; +TYLE325T5 PO; +TYLE650T35 PO; +VITA-193 PO; +VITA500046 PO; +VITA500T OR; +XARE20TA; +ZANA4TAB PO; -diazePAM 5 MG TAB As Ordered; -oxyCODONE 5MG TAB As Ordered
== END 2018-08-25 ==
LOC: M PT 08:26
PROVIDERS: ATTEND Nurse Practitioner Family
DX: M54.16 Radiculopathy, lumbar region (principal); M46.1 Sacroiliitis, not elsewhere classified; M51.26 Other intervertebral disc displacement, lumbar region

== ENCOUNTER → 2018-08-01 | Outpatient (CLI) | payer MEDICARE, MEDICAID ==
--- NOTE | 2018-08-21 00:23 | ECWPNPC ---
PATIENT NAME: NISHA MUNSON : 1955 GENDER: FEMALE VISIT DATE: 08/01/2018 DISCHARGE DATE: 08/01/18 1112 VISIT LOCKED DATE TIME: PHYSICIAN: VIOLETA TITUS PHYSICIAN PAGER NO: [phone] RESOURCE: VIOLETA TITUS REASON FOR APPOINTMENT 1. BACK HISTORY OF PRESENT ILLNESS DEPRESSION SCREENING: PHQ-2 IN LAST TWO WEEKS HAVE YOU BEEN BOTHERED BY LITTLE INTEREST OR PLEASURE IN DOING THINGSNO FEELING DOWN, DEPRESSED, OR HOPELESSNO HISTORY OF PRESENT ILLNESS: HERE FOR F/U OF CHRONIC LOW BACK PAIN.RATING PAIN VAS 5/10.SHINGLES HAS RESOLVED.DESCRIBES LOW BACK PAIN CONSTANT AND ACHING.REPORTING SYMPTOMS OF NEUROPATHY IN BILATERAL FEET AND LEGS.DESCRIBES PAIN ELECTRICAL SHOCKS.HAS NOT HAD MUCH IMPROVEMENT IN THIS WITH GABAPENTIN LATELY.DISCUSSED MEDICATION AND TREATMENT OPTIONS. PAIN THE PATIENT DESCRIBES THE PAIN... FALL RISK SCREENING: SCREENING :NO FALLS IN THE PAST YEAR CURRENT MEDICATIONS TAKING PROAIR HFA 108 (90 BASE) MCG/ACT AEROSOL SOLUTION 2 PUFFS NEEDED INHALATION QID PRN TAKING VITAMIN D 5000 TABLET 1 TABLET ORALLY TID TAKING CALCIUM 600+D HIGH POTENCY 600-400 MG-UNIT TABLET 1 TABLET WITH FOOD ORALLY TWICE A DAY TAKING NYSTATIN 849802 UNITS/G TOPICAL OINTMENT . APPLIED TOPICALLY DIRECTED BID X 10 DAYS C FLARES TAKING OXYCODONE HCL 10 MG TABLET 1 TABLET NEEDED ORALLY 3 TIMES A DAY TAKING XARELTO 20 MG TABLET 1 TAB(S) ORAL AT DINNER TIME TAKING FLECAINIDE ACETATE 50 MG TABLET 1 TAB ORAL BID TAKING RECLAST 5 MG/100ML SOLUTION DIRECTED INTRAVENOUS , NOTES: YEARLY TAKING LIDODERM 5 % PATCH 1 PATCH TO SKIN REMOVE AFTER 12 HOURS EXTERNALLY APPLY 2 PATCHES TO RIGHT THORACIC REGION FOR SHINGLES - ON 12 HRS OFF 12 HRS TAKING SUCRALFATE 1 GM TABLET 1 TABLET ON AN EMPTY STOMACH ORALLY FOUR TIMES DAILY TAKING PANTOPRAZOLE SODIUM 40 MG TABLET DELAYED RELEASE 1 TABLET ORALLY BID TAKING VITAMIN B12 1000 MCG SC . SC EVERY 8 WEEKS, NOTES: EVERY 2 MONTHS TAKING FERROUS GLUCONATE 325 MG CAPSULE 1 TABLET ORALLY TWICE DAILY TAKING METOPROLOL TARTRATE 25 MG TABLET 1/2 TABLET ORALLY DAILY AT BEDTIME NOT-TAKING PROTONIX 40 MG UNSPECIFIED 1 TAB ORALLY ONCE DAILY, NOTES: DUPLICATE NOT-TAKING AMITRIPTYLINE HCL 25 MG TABLET 1 TABLET ORALLY BEFORE BEDTIME MEDICATION LIST REVIEWED AND RECONCILED WITH THE PATIENT PAST MEDICAL HISTORY 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 12/2008-SETTER HYPERTENSION ALLERGIC RHINITIS H/O IMMUNOTHERAPY X >10Y-STOPPED 2 INADEQUATE RESPONSE NONALCOHOLIC FATTY LIVER DISEASE C MILD CHRONIC ELEVATED ALP OBESITY, MORBID STATUS POST R-Y GASTRIC BYPASS 06/2006, 12/29/15-MARYJANE VITAMIN D DEFICIENCY ANEMIA, IRON/FE DEFICIENCY HISTORY OF RIGHT LOWER EXTREMITY DVT X2 IMPAIRED FASTING GLUCOSE HISTORY OF NICOTINE ADDICTION-SMOKED 7 CIGS QD X 10Y, QUIT AT 28 YO-04/2012 FEV1 2.3L (99%)/RATIO 108% GERD-11/2014 NORMAL EGD-REINDL TUBULAR ADENOMA BY 11/2014 COLONOSCOPY-REINDL ATRIAL FIBRILLATION, TALGDOCYEG-PRT-LHRVE POD 2 TKR 05/2015- CONVERTED TO SR C CARDIOVERSION LISA, MODERATE-07/2017 HST JLUIS 17 C SAO2 TO 88% HO MRSA ABSCESS LUMBAR DJD-11/2017 MRI L5/S1 BULGE EXTENDING INTO B NF DISPLACING R S1 ROOT, MILD L4/5 CCS R T5 ZOSTER RXED C VALCYC/PRED 05/2018 ALLERGIES PENICILLIN (FOR ALLERGIES USE ONLY): RASH: ALLERGY ERYTHROMYCIN: RASH: ALLERGY DOXYCYCLINE HYCLATE: RASH: ALLERGY TALWIN: RASH HIVES: ALLERGY NOVACAINE (PT NOTES SHE WAS OK WITH RECENT LIDOCAI: SWELLING: ALLERGY BACTRIM: RASH: ALLERGY TETRACYCLINE HCL: HIVES: ALLERGY VICODIN: ITCH: ALLERGY SINGULAIR: GERD: SIDE EFFECTS CODEINE SULFATE: UNCONSCIOUSNESS: ALLERGY GABAPENTIN: IRRITABILITY/AGGRESSIVENESS: SIDE EFFECTS SURGICAL HISTORY I&D ABDOMEN ABSCESS 05/2010 OPEN GASTRIC BYPASS 2007 PARTIAL HYSTERECTOMY 2008 RIGHT SHOULDER SURGERY (X2) 2008 AND 2009 APPENDECTOMY AGE 9 RIGHT WRIST SURGERY X 2 1980S THROAT TUMOR AGE 16 SURGERY FOR DEVIATED SEPTUM AGE 18 AD CATERACT-SARA 02/2014 R TKR- DR. HUYNH-[place] 06/20/15 GASTRIC BYPASS REVISION-MARYJANE 12/29/15 L TKR-DR. HUYNH-SOS 01/01/17 ROBOTIC VENTRAL HERNIA REPAIR 2 SURGICAL VENTRAL HERNIA-MARYJANE 05/16/17 HAS IVC FILTER FAMILY HISTORY FATHER: 66 YRS, KIDNEY FAILURE MOTHER: 78 YRS, HTN, PACEMAKER SIBLINGS: ALIVE, DIAGNOSED WITH DIABETES, HYPERTENSION MATERNAL GRAND FATHER: , BRAIN CANCER MATERNAL GRAND MOTHER: , COLON CARCINOMA 1 SON(S) , 2 DAUGHTER(S) . MGF AND COUSIN HAD COLON CA.DAUGHTERS-CHRONIC BACK PAINSON-HAD THYROIDECTOMY--UNSURE OF DIAGNOSIS. SOCIAL HISTORY GENERAL: TOBACCO USE ARE YOU A:FORMER SMOKER HOW LONG HAS IT BEEN SINCE YOU LAST SMOKED?> 10 YEARS BMI CARE GOAL FOLLOW-UP ABOVE NORMAL BMI FOLLOW-UPLIFESTYLE EDUCATION REGARDING DIET ALCOHOL SCREENING DID YOU HAVE A DRINK CONTAINING ALCOHOL IN THE PAST YEAR?NO POINTS0 INTERPRETATIONNEGATIVE RECREATIONAL DRUG USE DRUG USE?NO CAFFEINE CAFFEINE USE?NO SEXUAL HX HAD SEX IN THE LAST 12 MONTHS (VAGINAL, ORAL, OR ANAL)?NO LMP:HYSTER HAVE YOU EVER HAD AN STD?NO HIV / HEP-C SCREENING HIV TEST OFFERED TO PATIENT:YES DATE OFFERED:11/05/2017 TEST ACCEPTED:NO HEP-C TEST OFFERED TO PATIENT:YES DATE OFFERED:11/22/2016 REASON:PATIENT DECLINED TEST ACCEPTED:NO REASON:PATIENT DECLINED BROCHURE PROVIDED TO PATIENTYES SABIANISM [id number] RESTORATIONISM LANGUAGE LANGUAGES SPOKEN:CHINESE LEARNING BARRIERS / SPECIAL NEEDS CHANGE FROM LAST VISIT?NO BARRIERS TO LEARNING?NO HEARING IMPAIRED?NO VISION IMPAIRED?YES COGNITIVELY IMPAIRED?NO :CORRECTIVE LENSES READINESS TO LEARN?YES LEARNING PREFERENCES?NO LEARNING CAPABILITIES PRESENT?YES EMOTIONAL BARRIERS?NO SPECIAL DEVICES?YES :WALKER, OTHER ROLLED MATERIALS WORKER 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 DIET: REGULAR. EXERCISE: NO REGULAR EXERCISE, SMALL WALKS. MARITAL STATUS: . PAIN CLINIC PFS, CLERGY, PUBLIC HEALTH REFERRALS PFS REFERRAL NEEDED?NO CLERGY REFERRAL NEEDED?NO PUBLIC HEALTH REFERRAL NEEDED?NO HAS THE PATIENT BEEN EDUCATED REGARDING HIS/HER PLAN OF CARE?YES HAS THE PATIENT BEEN EDUCATED REGARDING PAIN, THE RISK FOR PAIN, THE IMPORTANCE OF EFFECTIVE PAIN MANAGEMENT, AND THE PAIN ASSESSMENT PROCESS?YES ADVANCE DIRECTIVE ADVANCE DIRECTIVE DISCUSSED WITH PATIENT:YES PT. HAS HCP, DAUGHTER DARIO PICKETT [phone], DAUGHTER DEANDRA BECKHAM [phone] REVIEWED WITH PT 04/15/18 1105 LASREVIEWED WITH PT 04/30/18 1000 LASREVIEWED WITH PATIENT 06/11/18 1042 JSREVIEWED WITH PATIENT 08/01/18 1033 JS. HOSPITALIZATION/MAJOR DIAGNOSTIC PROCEDURE I&D MRSA ABDOMEN ABSCESS 05/2010 ACUTE DYSPNEA/HYPOXIA ([facility] PRIOR NORMAL MEAL)-ELISA AWOKE 530 2 WANDA, THEN IMMEDIATELY CAUSED COUGH/DYSPNEA-FELT ASPIRATION PN, IN ED RECEIVED ALBUTEROL NEB X 3 THEN WENT INTO AFIB C RVR, CONVERTED IN ED C IV AMIODARONE 150 X 2, -BLE DVT US,- CXR X 2 (09/09, 09/09-09/11/14 A. FIB WITH SURGERIES REVIEW OF SYSTEMS REVIEWED BY: PROVIDER: VIOLETA CRAFWORD . CONSTITUTIONAL: ANY CHANGE IN YOUR MEDICAL CONDITION? YES, STATES NEW IRON DEFICIENT ANEMIA DIAGNOSIS . CHILLS NO . FEVER NO . INFECTION: DO YOU HAVE NEW INFECTIONS? NO . DO YOU HAVE HISTORY OF MRSA? NO . MUSCULOSKELETAL: ANY NEW PATTERNS OF PAIN OR NUMBNESS? STATES PAIN TO LOW BACK 5/10 RADIATING TO LEFT FOOT . GASTROENTEROLOGY: ANY NEW CHANGE IN BOWEL CONTROL? NO . GENITOURINARY: ANY NEW CHANGE IN BLADDER CONTROL? NO . IS THERE A CHANCE YOU COULD BE ? NO . HEMATOLOGY/LYMPH: DO YOU TAKE ANY BLOOD THINNERS? (FOR EXAMPLE- COUMADIN, PLAVIX, AGGRENOX, PLATEL, PRADAXA, OR XARELTO) YES, XARELTO . WHEN WAS YOUR LAST DOSE? DATE: 07/31/18 TIME: 1830 . NEUROLOGY: HAVE YOU FALLEN IN THE PAST 6 MONTHS? NO . ANY NEW EXTREMITY NUMBNESS OR WEAKNESS? NO . CARDIOLOGY: DO YOU HAVE A PACEMAKER OR DEFIBRILLATOR? NO . RESPIRATORY: HAVE YOU BEEN SICK IN THE PAST WEEK? NO . FEVER NO . FLU LIKE SYMPTOMS? NO . COUGH NO . INTEGUMENTARY: DO YOU HAVE ANY RASHES OR OPEN SORES? YES, PATIENT STATES SHINGLES PRESENT, HEALING AND ALMOST GONE . ALLERGIC/IMMUNO: ARE YOU ALLERGIC TO SHELLFISH OR IV DYE? NO . ANY NEW ALLERGIES? NO . PSYCHIATRIC: DO YOU HAVE THOUGHTS OF HURTING YOURSELF OR SOMEONE ELSE? NO . ARE YOU ABUSED, NEGLECTED, OR IN AN UNSAFE ENVIRONMENT? NO . ENDOCRINOLOGY: ARE YOU DIABETIC? NO . OTHER: DO YOU NEED ANY PRESCRIPTIONS? NO . IF YES, PLEASE LIST: ____ . ANY NEW PROBLEMS WITH YOUR MEDICATIONS? NO . WHEN DID YOU LAST EAT? ____ . WHEN DID YOU LAST DRINK? ____ . WHAT DID YOU LAST DRINK? ____ . NAME OF PERSON DRIVING YOU HOME? ____ . DO YOU HAVE ANY OTHER QUESTIONS OR CONCERNS YES, STATES SHE NEEDS AN IRON INFUSION July . VITAL SIGNS WT 266.2 LBS, HT 63 IN, BMI 47.15 INDEX, BP 138/82 MM HG, HR 63 /MIN, RR 18 /MIN, TEMP 98.4 F, OXYGEN SAT % 99%, SAFE IN ENV? (Y/N) YES, REVIEWED BY: KULDIP. EXAMINATION GENERAL EXAMINATION: GENERAL APPEARANCE:AWAKE,ALERT ,PLEAASANT . PSYCHAFFECT NORMAL . LUNGS:LUNG DAVID ARE CLEAR TO AUSCULTATION BILATERALLY. GOOD MOVEMENT OF AIR . HEART:S1, S2 IN A REGULAR RATE AND RHYTHM. NO SIGNIFICANT MURMURS, RUBS OR GALLOPS NOTED . MUSCULOSKELETAL:WEAK OVER BILATERAL LOWER EXTREMITIES. LUMBAR SACRAL SPINEPALPATION: + FOR PAIN OVER L/S SPINE. + FOR PAIN OVER L/S PARASPINALS . NEUROLOGIC EXAM:NORMAL SENSATION LIGHT TOUCH BILAT. LOWER EXTREMITIES . DIAGNOSTIC TESTS REVIEWEDMRI L/S [id number]. ASSESSMENTS LUMBAR SPONDYLOSIS - M47.816 (PRIMARY) LUMBOSACRAL RADICULOPATHY - M54.17 NEUROPATHY - G62.9 TREATMENT LUMBAR SPONDYLOSIS NOTES: DUE TO PATIENTS INABILITY TO TOLERATE GABAPENTIN DUE TO ADVERSE EFFECTS IT IS MEDICALLY NECESSARY TO START LYRICA 100MG BID IN ATTEMPT TO CONTROL NEUROPATHY IN LEFT LEG AND FOOTL4/5 LESI. NEUROPATHY START LYRICA CAPSULE, 100 MG, 1 CAPSULE, ORALLY, BID MDD2, 30 DAY(S), 60, REFILLS 2 PREVENTIVE MEDICINE PAIN CLINIC TEACHING: PROCEDURE TEACHING REVIEWED LUMBAR EPIDURAL PROCEDURE INFORMATION WITH PATIENT, PATIENT HAS HAD PROCEDURE IN PAST, DECLINED EDUCATION MATERIALS. ALSO REVIEWED PRE-PROCEDURE INSTRUCTIONS WITH PATIENT. PATIENT VERBALIZED AN UNDERSTANDING. JENNIFER URRUTIA 08/01/2018 11:21:53 AM > . PROCEDURE CODES FA211 ESTABILISHED PATIENT [facility] CHARGE DISPOSITION & COMMUNICATION FOLLOW UP POST (REASON: L4/5 LESI) ELECTRONICALLY SIGNED BY YVETTE HINOJOSA ON 08/20/2018 AT 12:01 PM EST DISCLAIMER : THIS IS A VISIT SUMMARY EXTRACTED FROM THE [employer] CHART. IT IS NOT A COPY OF THE [employer] PROGRESS NOTE. VINCENT
== END ==
LOC: M PAIN 10:45
PROVIDERS: ATTEND Nurse Practitioner Family
DX: M47.816 Spondylosis without myelopathy or radiculopathy, lumbar region (principal); M54.17 Radiculopathy, lumbosacral region; G62.9 Polyneuropathy, unspecified; I10 Essential (primary) hypertension; I48.91 Unspecified atrial fibrillation; D50.9 Iron deficiency anemia, unspecified; R73.01 Impaired fasting glucose; K21.9 Gastro-esophageal reflux disease without esophagitis; G47.33 Obstructive sleep apnea (adult) (pediatric); J30.9 Allergic rhinitis, unspecified; E66.01 Morbid (severe) obesity due to excess calories; Z68.42 Body mass index [BMI] 45.0-49.9, adult; Z79.01 Long term (current) use of anticoagulants; Z79.899 Other long term (current) drug therapy; Z88.0 Allergy status to penicillin; Z88.1 Allergy status to other antibiotic agents; Z88.8 Allergy status to other drugs, medicaments and biological substances; Z88.5 Allergy status to narcotic agent; Z98.84 Bariatric surgery status; Z86.79 Personal history of other diseases of the circulatory system; Z87.891 Personal history of nicotine dependence

== ENCOUNTER 2018-08-13 06:38 | Outpatient (CLI) | payer MEDICARE, MEDICAID ==
[~2018-08-13] VITALS: Ht 160 cm; Wt 119.0 kg
[2018-08-13] VITALS (8 sets, daily range): BP systolic 107–149; BP diastolic 55–67
[2018-08-13] MEDS ORDERED: IRON SUCROSE 25 MG in NS 50 ML IV ONE (07:30)
[2018-08-13] MEDS ORDERED: IRON SUCROSE 225 MG in NS 250 ML IV ONE (08:30)
== END 2018-08-13 12:35 | disposition home or self-care (01) ==
LOC: M INFU 06:38
PROVIDERS: ATTEND Family Medicine
DX: D50.9 Iron deficiency anemia, unspecified (principal); Z88.5 Allergy status to narcotic agent; Z88.0 Allergy status to penicillin; Z88.8 Allergy status to other drugs, medicaments and biological substances; Z88.1 Allergy status to other antibiotic agents
CPT/HCPCS: 96365; 96366; J1756

== ENCOUNTER 2018-08-21 10:44 | Outpatient (RCR) | payer MEDICARE, MEDICAID | END 2018-08-25 | LOC: M PT 10:44 | PROVIDERS: ATTEND Nurse Practitioner Women's Health | DX: R39.15 Urgency of urination (principal); N39.8 Other specified disorders of urinary system; N32.81 Overactive bladder | CPT/HCPCS: 97162; G8978; G8979 ==

== ENCOUNTER → 2018-09-04 | Outpatient (CLI) | payer MEDICARE, MEDICAID ==
[~2018-09-04] MED LIST changes: +ISOVUE-M 300 61% 15ML VIAL (Q9967) As Ordered ONE; +LIDOCAINE 1% SDV INJ 30 ML VIAL As Ordered ONE; +diazePAM 5 MG TAB As Ordered ONE; +methylPREDNISolone SUSP 40 MG/ML (DEPO-medrol) VIAL (J1030) As Ordered ONE; +oxyCODONE 5MG TAB As Ordered ONE
--- NOTE | 2018-09-04 12:08 | REP ---
PARTIAL LUMBAR SPINE SERIES: Single view. HISTORY: Lumbar epidural steroid injection for pain. 17 seconds of fluoroscopy time is reported. FINDINGS: A single last image hold fluoroscopically obtained spot radiograph of the lumbar spine documents needle position and contrast injection associated with injection procedure. Electronically Signed by Kenton Mir MD 09/04/2018 01:03 P
--- NOTE | 2018-09-23 01:58 | ECWPNPC ---
PATIENT NAME: NISHA MUNSON : 1955 GENDER: FEMALE VISIT DATE: 09/04/2018 DISCHARGE DATE: 09/04/18 1215 VISIT LOCKED DATE TIME: PHYSICIAN: GALI LEWIS MD PHYSICIAN PAGER NO: [phone] RESOURCE: GALI LEWIS MD REASON FOR APPOINTMENT 1. LESI -USE SAMPLE TOUHY PLEASE HISTORY OF PRESENT ILLNESS HISTORY OF PRESENT ILLNESS: PAIN THE PATIENT DESCRIBES THE PAIN... FALL RISK SCREENING: SCREENING :NO FALLS IN THE PAST YEAR CURRENT MEDICATIONS TAKING PROAIR HFA 108 (90 BASE) MCG/ACT AEROSOL SOLUTION 2 PUFFS NEEDED INHALATION QID PRN, NOTES: NOT LATELY TAKING VITAMIN D 5000 TABLET 1 TABLET ORALLY TID, NOTES: 09-04-18629 TAKING CALCIUM 600+D HIGH POTENCY 600-400 MG-UNIT TABLET 1 TABLET WITH FOOD ORALLY TWICE A DAY, NOTES: 09-03-182099 TAKING NYSTATIN [id number] UNITS/G TOPICAL OINTMENT . APPLIED TOPICALLY DIRECTED BID X 10 DAYS C FLARES, NOTES: NOT LATELY TAKING OXYCODONE HCL 10 MG TABLET 1 TABLET NEEDED ORALLY 3 TIMES A DAY, NOTES: 09-02-182099 TAKING XARELTO 20 MG TABLET 1 TAB(S) ORAL AT DINNER TIME, NOTES: 08-30-181799 TAKING FLECAINIDE ACETATE 50 MG TABLET 1 TAB ORAL BID, NOTES: 09-04-18629 1ND 0730 TAKING RECLAST 5 MG/100ML SOLUTION DIRECTED INTRAVENOUS , NOTES: I MONTH AGO TAKING LIDODERM 5 % PATCH 1 PATCH TO SKIN REMOVE AFTER 12 HOURS EXTERNALLY APPLY 2 PATCHES TO RIGHT THORACIC REGION FOR SHINGLES - ON 12 HRS OFF 12 HRS, NOTES: NOT NOW TAKING SUCRALFATE 1 GM TABLET 1 TABLET ON AN EMPTY STOMACH ORALLY FOUR TIMES DAILY, NOTES: 09-04-18629 TAKING PANTOPRAZOLE SODIUM 40 MG TABLET DELAYED RELEASE 1 TABLET ORALLY BID, NOTES: 09-03-18629 TAKING VITAMIN B12 1000 MCG SC . SC EVERY 8 WEEKS, NOTES: A MONTH AGO TAKING FERROUS GLUCONATE 325 MG CAPSULE 1 TABLET ORALLY TWICE DAILY, NOTES: 09-04-18629 TAKING METOPROLOL TARTRATE 25 MG TABLET 1/2 TABLET ORALLY DAILY AT BEDTIME, NOTES: 09-03-182099 TAKING LYRICA 100 MG CAPSULE 1 CAPSULE ORALLY BID MDD2, NOTES: 09-03-182099 UNKNOWN PROTONIX 40 MG UNSPECIFIED 1 TAB ORALLY ONCE DAILY, NOTES: DUPLICATE UNKNOWN AMITRIPTYLINE HCL 25 MG TABLET 1 TABLET ORALLY BEFORE BEDTIME MEDICATION LIST REVIEWED AND RECONCILED WITH THE PATIENT PAST MEDICAL HISTORY 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 12/2008-SETTER HYPERTENSION ALLERGIC RHINITIS H/O IMMUNOTHERAPY X >10Y-STOPPED 2 INADEQUATE RESPONSE NONALCOHOLIC FATTY LIVER DISEASE C MILD CHRONIC ELEVATED ALP OBESITY, MORBID STATUS POST R-Y GASTRIC BYPASS 06/2006, 12/29/15-MARYJANE VITAMIN D DEFICIENCY ANEMIA, IRON/FE DEFICIENCY HISTORY OF RIGHT LOWER EXTREMITY DVT X2 IMPAIRED FASTING GLUCOSE HISTORY OF NICOTINE ADDICTION-SMOKED 7 CIGS QD X 10Y, QUIT AT 28 YO-04/2012 FEV1 2.3L (99%)/RATIO 108% GERD-11/2014 NORMAL EGD-REINDL TUBULAR ADENOMA BY 11/2014 COLONOSCOPY-REINDL ATRIAL FIBRILLATION, [id number] POD 2 TKR 05/2015- CONVERTED TO SR C CARDIOVERSION LISA, MODERATE-07/2017 HST JLUIS 17 C SAO2 TO 88% HO MRSA ABSCESS LUMBAR DJD-11/2017 MRI L5/S1 BULGE EXTENDING INTO B NF DISPLACING R S1 ROOT, MILD L4/5 CCS R T5 ZOSTER RXED C VALCYC/PRED 05/2018 ALLERGIES PENICILLIN (FOR ALLERGIES USE ONLY): RASH: ALLERGY ERYTHROMYCIN: RASH: ALLERGY DOXYCYCLINE HYCLATE: RASH: ALLERGY TALWIN: RASH HIVES: ALLERGY NOVACAINE (PT NOTES SHE WAS OK WITH RECENT LIDOCAI: SWELLING: ALLERGY BACTRIM: RASH: ALLERGY TETRACYCLINE HCL: HIVES: ALLERGY VICODIN: ITCH: ALLERGY SINGULAIR: GERD: SIDE EFFECTS CODEINE SULFATE: UNCONSCIOUSNESS: ALLERGY GABAPENTIN: IRRITABILITY/AGGRESSIVENESS: SIDE EFFECTS SURGICAL HISTORY I&D ABDOMEN ABSCESS 05/2010 OPEN GASTRIC BYPASS 2007 PARTIAL HYSTERECTOMY 2008 RIGHT SHOULDER SURGERY (X2) 2008 AND 2009 APPENDECTOMY AGE 9 RIGHT WRIST SURGERY X 2 1980S THROAT TUMOR AGE 16 SURGERY FOR DEVIATED SEPTUM AGE 18 AD CATERACT-SARA 02/2014 R TKR- DR. HUYNH-[place] 06/20/15 GASTRIC BYPASS REVISION-MARYJANE 12/29/15 L TKR-DR. HUYNH-SOS 01/01/17 ROBOTIC VENTRAL HERNIA REPAIR 2 SURGICAL VENTRAL HERNIA-MARYJANE 05/16/17 HAS IVC FILTER FAMILY HISTORY FATHER: 66 YRS, KIDNEY FAILURE MOTHER: 78 YRS, HTN, PACEMAKER SIBLINGS: ALIVE, DIAGNOSED WITH DIABETES, HYPERTENSION MATERNAL GRAND FATHER: , BRAIN CANCER MATERNAL GRAND MOTHER: , COLON CARCINOMA 1 SON(S) , 2 DAUGHTER(S) . MGF AND COUSIN HAD COLON CA.DAUGHTERS-CHRONIC BACK PAINSON-HAD THYROIDECTOMY--UNSURE OF DIAGNOSIS. SOCIAL HISTORY GENERAL: TOBACCO USE ARE YOU A:FORMER SMOKER HOW LONG HAS IT BEEN SINCE YOU LAST SMOKED?> 10 YEARS BMI CARE GOAL FOLLOW-UP ABOVE NORMAL BMI FOLLOW-UPLIFESTYLE EDUCATION REGARDING DIET ALCOHOL SCREENING DID YOU HAVE A DRINK CONTAINING ALCOHOL IN THE PAST YEAR?NO POINTS0 INTERPRETATIONNEGATIVE RECREATIONAL DRUG USE DRUG USE?NO CAFFEINE CAFFEINE USE?NO SEXUAL HX HAD SEX IN THE LAST 12 MONTHS (VAGINAL, ORAL, OR ANAL)?NO LMP:HYSTER HAVE YOU EVER HAD AN STD?NO HIV / HEP-C SCREENING HIV TEST OFFERED TO PATIENT:YES DATE OFFERED:11/05/2017 TEST ACCEPTED:NO HEP-C TEST OFFERED TO PATIENT:YES DATE OFFERED:11/22/2016 REASON:PATIENT DECLINED TEST ACCEPTED:NO REASON:PATIENT DECLINED BROCHURE PROVIDED TO PATIENTYES MANDAEN [id number] [employer] LANGUAGE LANGUAGES SPOKEN:[place]EN[place]IC LEARNING BARRIERS / SPECIAL NEEDS CHANGE FROM LAST VISIT?NO BARRIERS TO LEARNING?NO HEARING IMPAIRED?NO VISION IMPAIRED?YES COGNITIVELY IMPAIRED?NO :CORRECTIVE LENSES READINESS TO LEARN?YES LEARNING PREFERENCES?NO LEARNING CAPABILITIES PRESENT?YES EMOTIONAL BARRIERS?NO SPECIAL DEVICES?YES :WALKER, 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 DIET: REGULAR. EXERCISE: NO REGULAR EXERCISE, SMALL WALKS. MARITAL STATUS: . PAIN CLINIC PFS, CLERGY, PUBLIC HEALTH REFERRALS PFS REFERRAL NEEDED?NO CLERGY REFERRAL NEEDED?NO PUBLIC HEALTH REFERRAL NEEDED?NO HAS THE PATIENT BEEN EDUCATED REGARDING HIS/HER PLAN OF CARE?YES HAS THE PATIENT BEEN EDUCATED REGARDING PAIN, THE RISK FOR PAIN, THE IMPORTANCE OF EFFECTIVE PAIN MANAGEMENT, AND THE PAIN ASSESSMENT PROCESS?YES ADVANCE DIRECTIVE ADVANCE DIRECTIVE DISCUSSED WITH PATIENT:YES PT. HAS HCP, DAUGHTER DARIO PICKETT [phone], DAUGHTER DEANDRA BECKHAM [phone] REVIEWED WITH PT 04/15/18 1105 LASREVIEWED WITH PT 04/30/18 1000 LASREVIEWED WITH PATIENT 06/11/18 1042 JSREVIEWED WITH PATIENT 08/01/18 1033 JS. HOSPITALIZATION/MAJOR DIAGNOSTIC PROCEDURE I&D MRSA ABDOMEN ABSCESS 05/2010 ACUTE DYSPNEA/HYPOXIA ([facility] PRIOR NORMAL MEAL)-ELISA AWOKE 530 2 WANDA, THEN IMMEDIATELY CAUSED COUGH/DYSPNEA-FELT ASPIRATION PN, IN ED RECEIVED ALBUTEROL NEB X 3 THEN WENT INTO AFIB C RVR, CONVERTED IN ED C IV AMIODARONE 150 X 2, -BLE DVT US,- CXR X 2 (09/09, 09/09-09/11/14 A. FIB WITH SURGERIES REVIEW OF SYSTEMS REVIEWED BY: PROVIDER: . CONSTITUTIONAL: ANY CHANGE IN YOUR MEDICAL CONDITION? NO . CHILLS NO . FEVER NO . INFECTION: DO YOU HAVE NEW INFECTIONS? NO . DO YOU HAVE HISTORY OF MRSA? NO . MUSCULOSKELETAL: ANY NEW PATTERNS OF PAIN OR NUMBNESS? NO . GASTROENTEROLOGY: ANY NEW CHANGE IN BOWEL CONTROL? NO . GENITOURINARY: ANY NEW CHANGE IN BLADDER CONTROL? NO . IS THERE A CHANCE YOU COULD BE ? NO . HEMATOLOGY/LYMPH: DO YOU TAKE ANY BLOOD THINNERS? (FOR EXAMPLE- COUMADIN, PLAVIX, AGGRENOX, PLATEL, PRADAXA, OR XARELTO) YES . WHEN WAS YOUR LAST DOSE? DATE: TIME: 08-30-181799 . NEUROLOGY: HAVE YOU FALLEN IN THE PAST 6 MONTHS? NO . ANY NEW EXTREMITY NUMBNESS OR WEAKNESS? NO . CARDIOLOGY: DO YOU HAVE A PACEMAKER OR DEFIBRILLATOR? NO . RESPIRATORY: HAVE YOU BEEN SICK IN THE PAST WEEK? NO . FEVER NO . FLU LIKE SYMPTOMS? NO . COUGH NO . INTEGUMENTARY: DO YOU HAVE ANY RASHES OR OPEN SORES? NO . ALLERGIC/IMMUNO: ARE YOU ALLERGIC TO SHELLFISH OR IV DYE? NO . ANY NEW ALLERGIES? NO . PSYCHIATRIC: DO YOU HAVE THOUGHTS OF HURTING YOURSELF OR SOMEONE ELSE? NO . ARE YOU ABUSED, NEGLECTED, OR IN AN UNSAFE ENVIRONMENT? NO . ENDOCRINOLOGY: ARE YOU DIABETIC? NO . OTHER: DO YOU NEED ANY PRESCRIPTIONS? NO . IF YES, PLEASE LIST: ____ . ANY NEW PROBLEMS WITH YOUR MEDICATIONS? NO . WHEN DID YOU LAST EAT? ____LAST NIGHT 8 PM . WHEN DID YOU LAST DRINK? ____THIS MORNING 0630 . WHAT DID YOU LAST DRINK? ____WATER . NAME OF PERSON DRIVING YOU HOME? ____DARIO SEARS . DO YOU HAVE ANY OTHER QUESTIONS OR CONCERNS NO . VITAL SIGNS WT 274 LBS, HT 63 IN, BMI 48.53 INDEX, BP 173/79 MM HG, HR 68 /MIN, RR 18 /MIN, TEMP 96.6 F, OXYGEN SAT % 100%, NA INITIALS SC 09:05. ASSESSMENTS LUMBOSACRAL SPINAL STENOSIS - M48.07 (PRIMARY) INTERVERTEBRAL DISC DISORDER WITH RADICULOPATHY OF LUMBOSACRAL REGION - M51.17 PROCEDURES PRE PROCEDURE DIAGNOSIS LUMBOSACRAL DISC DISORDER WITH RADICULOPATHY, LUMBOSACRAL SPINAL STENOSIS POST PROCEDURE DIAGNOSIS LUMBOSACRAL DISC DISORDER WITH RADICULOPATHY , LUMBOSACRAL SPINAL STENOSIS PROCEDURE LUMBAR EPIDURAL STEROID INJECTION UNDER FLUOROSCOPIC GUIDANCE SURGEON DR. GAIL LEWIS EVAPORATOR SUPERVISOR NONE ANESTHESIA LOCAL PRE PROCEDURE NOTE THE PATIENT HAS A HISTORY OF CHRONIC LOW BACK PAIN. I EVALUATE THE PATIENT AND REVIEWED THE CHART. I WENT OVER THE RISKS, ALTERNATIVES, AND BENEFITS ASSOCIATED WITH THIS PROCEDURE. THE PATIENT WOULD LIKE TO PROCEED AND GIVE CONSENT TO PERFORMED THE PROCEDURE. THE PATIENT DENIES UNEXPLAINABLE WEIGHT LOSS, FEVER, CHILLS, OR NEW CHANGES IN URINARY OR BOWEL CONTROL. DESCRIPTION OF PROCEDURE THE PATIENT WAS BROUGHT TO THE PROCEDURE ROOM AND PLACED IN THE PRONE POSITION. THE LUMBOSACRAL AREA WAS CLEANED WITH BETADINE SOLUTION AND DRAPED ASEPTICALLY. THE PROCEDURE WAS DONE UNDER STERILE CONDITIONS. I CHECKED LATERALITY AND THE LEVEL WHERE THE PROCEDURE WAS GOING TO BE PERFORMED WITH THE PATIENT AND THE SUPPORTING STAFF AT THE MOMENT OF THE TIME OUT IN THE PROCEDURE ROOM. UNDER FLUOROSCOPIC GUIDANCE, THE TARGET POINT WAS SELECTED AT THE INTERLAMINAR LEVEL OF L5-S1. LIDOCAINE WAS USED TO NUMB THE SKIN AND THE SUBCUTANEOUS TISSUE BELOW IT. EPIDURAL TUOHY NEEDLE, 17-GAUGE, WAS ADVANCED UNDER FLUOROSCOPIC GUIDANCE AND FOLLOWING PATIENT FEEDBACK UNTIL THE EPIDURAL SPACE WAS REACHED, 7 CM DEEP INTO THE SKIN BY THE LOSS OF RESISTANCE TECHNIQUE. ISOVUE M DYE 30%, 0.25 ML, WAS INJECTED SHOWING ADEQUATE SPREAD OF THE DYE. THEN, A SOLUTION OF 3 ML OF NORMAL SALINE WITH DEPO-MEDROL 60 MG WAS INJECTED SLOWLY FOLLOWING PATIENT FEEDBACK. THERE WAS NO EVIDENCE OF BLOOD, PARESTHESIA OR CEREBROSPINAL FLUID DURING THE PROCEDURE. THE PATIENT WAS SENT TO THE RECOVERY ROOM. THE PATIENT WAS MOVING THE EXTREMITIES AND DOING WELL. THERE WAS NO COMPLICATION DURING THE PROCEDURE. FLUOROSCOPY TIME WAS 17 SECONDS. POST PROCEDURE NOTE THE PATIENT WILL BE SEEN IN A FOLLOW UP IN THE NEXT FEW WEEKS. INSTRUCTIONS WERE GIVEN, QUESTIONS WERE ANSWERED, AND THE PATIENT EXPRESSED UNDERSTANDING AND AGREES WITH THE PLAN. I, SAIDA CASTELLANOS, DOCUMENTED THE ABOVE INFORMATION ACTING A SCRIBE FOR DR. LEWIS. I HAVE REVIEWED THE ABOVE DOCUMENT, WRITTEN BY SAIDA CASTELLANOS SCRIBE AND I VERIFY THAT IT IS ACCURATE. DIAGNOSTIC IMAGING [facility] FLUORO GUIDE SPINE INJECTION (PAIN)[id number] PROCEDURE CODES 6045F RADXPS IN END [id number] PXD [id number] LUMBAR/SACRAL W/ IMAGING DISPOSITION & COMMUNICATION FOLLOW UP 2 WEEKS ELECTRONICALLY SIGNED BY GALI LEWIS MD, MD ON 09/22/2018 AT 11:08 AM EST DISCLAIMER : THIS IS A VISIT SUMMARY EXTRACTED FROM THE [employer] CHART. IT IS NOT A COPY OF THE [employer] PROGRESS NOTE. MTDD
== END ==
LOC: M PAIN 08:30
PROVIDERS: ATTEND Anesthesiology
DX: G89.29 Other chronic pain (principal); M48.07 Spinal stenosis, lumbosacral region; M51.17 Intervertebral disc disorders with radiculopathy, lumbosacral region; I10 Essential (primary) hypertension; J30.89 Other allergic rhinitis; E55.9 Vitamin D deficiency, unspecified; D50.9 Iron deficiency anemia, unspecified; K21.9 Gastro-esophageal reflux disease without esophagitis; G47.33 Obstructive sleep apnea (adult) (pediatric); Z79.01 Long term (current) use of anticoagulants; E66.01 Morbid (severe) obesity due to excess calories; Z68.42 Body mass index [BMI] 45.0-49.9, adult; Z79.899 Other long term (current) drug therapy; Z88.0 Allergy status to penicillin; Z88.1 Allergy status to other antibiotic agents; Z88.5 Allergy status to narcotic agent; Z88.8 Allergy status to other drugs, medicaments and biological substances; Z87.891 Personal history of nicotine dependence; Z98.84 Bariatric surgery status; Z86.79 Personal history of other diseases of the circulatory system
CPT/HCPCS: 62323; J1030; Q9967

== ENCOUNTER → 2018-09-29 | Outpatient (REF) | payer MEDICARE, MEDICAID ==
[~2018-09-29] MED LIST changes: -ISOVUE-M 300 61% 15ML VIAL (Q9967) As Ordered ONE; -LIDOCAINE 1% SDV INJ 30 ML VIAL As Ordered ONE; -diazePAM 5 MG TAB As Ordered ONE; -methylPREDNISolone SUSP 40 MG/ML (DEPO-medrol) VIAL (J1030) As Ordered ONE; -oxyCODONE 5MG TAB As Ordered ONE
[2018-09-29 09:46] LABS: BASO # 0.1 10^3/uL (0.0-0.2); BASO % 0.9 % (0.0-1.0); EOS # 0.2 10^3/uL (0.0-0.50); EOS % 2.9 % (0.0-3.0); HEMATOCRIT 37.3 % (36.0-47.0); HEMOGLOBIN 11.4 g/dl (12.0-15.5); LYMPH # 1.7 10^3/uL (1.5-4.5); LYMPH % 21.4 % (24.0-44.0); MEAN CORPUSCULAR HEMOGLOBIN 26.7 pg (27.0-33.0); MEAN CORPUSCULAR HGB CONC 30.6 g/dl (32.0-36.5); MEAN CORPUSCULAR VOLUME 87.4 fl (80.0-96.0); MONO # 0.6 10^3/uL (0.0-0.8); NEUTROPHILS # 5.3 10^3/uL (1.8-7.7); NEUTROPHILS % 67.4 % (36.0-66.0); PLATELET COUNT, AUTOMATED 319 10^3/uL (150-450); RED BLOOD COUNT 4.27 10^6/uL (4.00-5.40); WHITE BLOOD COUNT 7.8 10^3/uL (4.0-10.0)
[2018-09-29 09:50] LABS: HEMATOCRIT 37.3 % (36.0-47.0)
[2018-09-29 10:11] LABS: PERCENT SATURATION 16.2 % (13.2-45.0)
== END ==
LOC: M SFHCPLAZ 08:38
PROVIDERS: ATTEND Family Medicine
DX: D50.9 Iron deficiency anemia, unspecified (principal); D51.9 Vitamin B12 deficiency anemia, unspecified

== ENCOUNTER → 2018-11-07 | Outpatient (CLI) | payer MEDICARE, MEDICAID ==
[~2018-11-07] MED LIST changes: -/LINE60TA OR; -ASCO25TA PO; +NYST100029 TOP; -NYST10CR TOP; +VITA1TAB23 PO; +ZYVO100T OR
--- NOTE | 2018-11-17 11:29 | REP ---
Shoulder series: Three views. Repeat dictation. History: Impingement symptoms. Findings: The left glenohumeral and acromioclavicular joints are normally aligned. There is mild inferior spurring of the acromion process. Articular soft tissues are unremarkable. Incidental note is made of an angular metallic foreign body projecting in the perihilar region of the left lung. This is visible in retrospect on prior chest x-rays dating back at least as far as 2013. The patient has an inferior vena cava filter in place on prior CT studies and the metallic density in the perihilar region is consistent with a fractured IVC filter limb migrated to the lung. This is not an acute finding. Impression: Spurring at the inferior aspect of the acromion process. No other acute abnormality at the shoulder. Incidental IVC filter limb fracture with migration to the left perihilar region. This is not an acute finding. Electronically Signed by Kenton Mir MD 11/17/2018 12:09 P
== END ==
LOC: M RAD 11:20 → M LAB 11:20
PROVIDERS: ATTEND Family Medicine
DX: M25.712 Osteophyte, left shoulder (principal); M75.42 Impingement syndrome of left shoulder
CPT/HCPCS: 73030; G0463

== ENCOUNTER → 2018-12-09 | Outpatient (CLI) | payer MEDICARE, MEDICAID ==
--- NOTE | 2018-12-11 01:06 | ECWPNPC ---
PATIENT NAME: NISHA MUNSON : 1955 GENDER: FEMALE VISIT DATE: 12/09/2018 DISCHARGE DATE: 12/09/18 1018 VISIT LOCKED DATE TIME: PHYSICIAN: RALPH WELLINGTON PHYSICIAN PAGER NO: [phone] RESOURCE: RALPH WELLINGTON REASON FOR APPOINTMENT 1. BACK HISTORY OF PRESENT ILLNESS HISTORY OF PRESENT ILLNESS: PAIN THE PATIENT DESCRIBES THE PAINDURING THE LAST MONTH SEVERITY - PAIN SCORE OF8/10 LOCATIONSLOWER BACK 63 YR OLD FEMALE HERE TO F/U ON LESI IN 09/13. PATIENT SAYS SHE HAD > 75 % REDUCTION FOR 2 WEEKS POST PROCEDURE. PATIENT SAYS SHE HAS ONLY BEEN TAKIGN HER LYRICA AT BED TIME.SHE CANNOT USE GABAPENTIN SHE FEELS " AGGRESSIVE" ON IT. I DISCUSSED DULOXETINE BUT SHE HAS ALLERGIES TO DOXYCLYCLINE AND CODEINE SULFATE, AND IT CONTAINES SAME INGREDIENTS AND DYE. FALL RISK SCREENING: SCREENING :NO FALLS REPORTED IN THE LAST YEAR CURRENT MEDICATIONS TAKING VITAMIN B12 1000 MCG SC . SC EVERY 8 WEEKS TAKING PROAIR HFA 108 (90 BASE) MCG/ACT AEROSOL SOLUTION 2 PUFFS NEEDED INHALATION QID PRN TAKING FERROUS GLUCONATE 325 MG CAPSULE 1 TABLET ORALLY TWICE DAILY TAKING VITAMIN D 5000 TABLET 1 TABLET ORALLY TID TAKING CALCIUM 600+D HIGH POTENCY 600-400 MG-UNIT TABLET 1 TABLET WITH FOOD ORALLY TWICE A DAY TAKING XARELTO 20 MG TABLET 1 TAB(S) ORAL AT DINNER TIME TAKING METOPROLOL TARTRATE 25 MG TABLET 1/2 TABLET ORALLY DAILY AT BEDTIME TAKING FLECAINIDE ACETATE 50 MG TABLET 1 TAB ORAL BID TAKING LIDODERM 5 % PATCH 1 PATCH TO SKIN REMOVE AFTER 12 HOURS EXTERNALLY APPLY 2 PATCHES TO RIGHT THORACIC REGION FOR SHINGLES - ON 12 HRS OFF 12 HRS TAKING LYRICA 100 MG CAPSULE 1 CAPSULE ORALLY BID MDD2 TAKING RECLAST 5 MG/100ML SOLUTION DIRECTED INTRAVENOUS TAKING SUCRALFATE 1 GM TABLET 1 TABLET ON AN EMPTY STOMACH ORALLY TWICE A DAY TAKING PANTOPRAZOLE SODIUM 40 MG TABLET DELAYED RELEASE 1 TABLET ORALLY BID NOT-TAKING NYSTATIN [id number] UNITS/G TOPICAL OINTMENT . APPLIED TOPICALLY DIRECTED BID X 10 DAYS C FLARES NOT-TAKING AMITRIPTYLINE HCL 25 MG TABLET 1 TABLET ORALLY BEFORE BEDTIME DISCONTINUED OXYCODONE HCL 10 MG TABLET 1 TABLET NEEDED ORALLY 3 TIMES A DAY DISCONTINUED TAMIFLU 75 MG CAPSULE 1 CAPSULE ORALLY DAILY DISCONTINUED PENNSAID 2 % SOLUTION 2 PUMPS TO LEFT SHOULDER TRANSDERMAL TWICE A DAY MEDICATION LIST REVIEWED AND RECONCILED WITH THE PATIENT PAST MEDICAL HISTORY 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 12/2008-SETTER HYPERTENSION ALLERGIC RHINITIS H/O IMMUNOTHERAPY X >10Y-STOPPED 2 INADEQUATE RESPONSE NONALCOHOLIC FATTY LIVER DISEASE C MILD CHRONIC ELEVATED ALP OBESITY, MORBID STATUS POST R-Y GASTRIC BYPASS 06/2006, 12/29/15-MARYJANE VITAMIN D DEFICIENCY ANEMIA, IRON/FE DEFICIENCY HISTORY OF RIGHT LOWER EXTREMITY DVT X2 IMPAIRED FASTING GLUCOSE HISTORY OF NICOTINE ADDICTION-SMOKED 7 CIGS QD X 10Y, QUIT AT 28 YO-04/2012 FEV1 2.3L (99%)/RATIO 108% GERD-11/2014 NORMAL EGD-REINDL TUBULAR ADENOMA BY 11/2014 COLONOSCOPY-REINDL ATRIAL FIBRILLATION, [id number] POD 2 TKR 05/2015- CONVERTED TO SR C CARDIOVERSION LISA, MODERATE-07/2017 HST JLUIS 17 C SAO2 TO 88% HO MRSA ABSCESS LUMBAR DJD-11/2017 MRI L5/S1 BULGE EXTENDING INTO B NF DISPLACING R S1 ROOT, MILD L4/5 CCS R T5 ZOSTER RXED C VALCYC/PRED 05/2018 IMPINGEMENT AND SPURRING LEFT SHOULDER ALLERGIES PENICILLIN (FOR ALLERGIES USE ONLY): RASH - ALLERGY ERYTHROMYCIN: RASH - ALLERGY DOXYCYCLINE HYCLATE: RASH - ALLERGY TALWIN: RASH HIVES - ALLERGY NOVACAINE (PT NOTES SHE WAS OK WITH RECENT LIDOCAI: SWELLING - ALLERGY BACTRIM: RASH - ALLERGY TETRACYCLINE HCL: HIVES - ALLERGY VICODIN: ITCH - ALLERGY SINGULAIR: GERD - SIDE EFFECTS CODEINE SULFATE: UNCONSCIOUSNESS - ALLERGY GABAPENTIN: IRRITABILITY/AGGRESSIVENESS - SIDE EFFECTS SURGICAL HISTORY I&D ABDOMEN ABSCESS 05/2010 OPEN GASTRIC BYPASS 2007 PARTIAL HYSTERECTOMY 2008 RIGHT SHOULDER SURGERY (X2) 2008 AND 2009 APPENDECTOMY AGE 9 RIGHT WRIST SURGERY X 2 1980S THROAT TUMOR AGE 16 SURGERY FOR DEVIATED SEPTUM AGE 18 AD [id number] 02/2014 R TKR- DR. HUYNH-[place] 06/20/15 GASTRIC BYPASS REVISION-MARYJANE 12/29/15 L TKR-DR. HUYNH-SOS 01/01/17 ROBOTIC VENTRAL HERNIA REPAIR 2 SURGICAL VENTRAL HERNIA-MARYJANE 05/16/17 HAS IVC FILTER FAMILY HISTORY FATHER: 66 YRS, KIDNEY FAILURE MOTHER: 78 YRS, HTN, PACEMAKER, DIAGNOSED WITH HYPERTENSION SIBLINGS: ALIVE, DIABETES, HYPERTENSION MATERNAL GRAND FATHER: , BRAIN CANCER MATERNAL GRAND MOTHER: , COLON CARCINOMA 1 SON(S) , 2 DAUGHTER(S) . MGF AND COUSIN HAD COLON CA.\\NDAUGHTERS-CHRONIC BACK PAIN\\NSON-HAD THYROIDECTOMY--UNSURE OF DIAGNOSIS. SOCIAL HISTORY GENERAL: TOBACCO USE ARE YOU A:FORMER SMOKER HOW LONG HAS IT BEEN SINCE YOU LAST SMOKED?> 10 YEARS LATEX QUESTIONNAIRE LATEX ALLERGY : HAVE YOU EVER DEVELOPED ANY TYPE OF REACTION AFTER HANDLING LATEX PRODUCTS SUCH RUBBER GLOVES, CONDOMS, DIAPHRAGMS, BALLOONS, SOCKS, OR UNDERWEAR?NO LATEX ALLERGY : HAVE YOU EVER DEVELOPED ANY TYPE OF REACTION DURING OR AFTER DENTAL APPOINTMENT, VAGINAL/RECTAL EXAMINATION, SURGICAL PROCEDURE, OR ANY OTHER EXPOSURE?NO LATEX RISK : HAVE YOU EVER HAD ANY DIFFICULTY BREATHING OR HIVES AFTER EATING OR HANDLING ANY FRUITS, OR VEGETABLES; SUCH KIWI, BANANAS, STONE FRUITS, OR CHESTNUTSNO LATEX RISK : DO YOU HAVE A PREVIOUS PERSONAL HISTORY OF MORE THAN NINE SURGERIES, SPINA BIFIDA, OR REPEATED CATHERTIZATIONS? NO LATEX RISK : ARE YOU FREQUENTLY EXPOSED TO LATEX PRODUCTS IN YOUR OCCUPATION?NO DATE ASKED : 12/09/2018 BMI CARE GOAL FOLLOW-UP ABOVE NORMAL BMI FOLLOW-UPLIFESTYLE EDUCATION REGARDING DIET ALCOHOL SCREENING DID YOU HAVE A DRINK CONTAINING ALCOHOL IN THE PAST YEAR?NO POINTS0 INTERPRETATIONNEGATIVE RECREATIONAL DRUG USE DRUG USE?NO CAFFEINE CAFFEINE USE?NO SEXUAL HX HAD SEX IN THE LAST 12 MONTHS (VAGINAL, ORAL, OR ANAL)?NO HAVE YOU EVER HAD AN STD?NO LMP:HYSTER HIV / HEP-C SCREENING HIV TEST OFFERED TO PATIENT:YES DATE OFFERED:11/05/2017 TEST ACCEPTED:NO REASON:PATIENT DECLINED BROCHURE PROVIDED TO PATIENTYES HEP-C TEST OFFERED TO PATIENT:YES DATE OFFERED:11/22/2016 TEST ACCEPTED:NO REASON:PATIENT DECLINED VOODOO [id number] BUDDHIST LANGUAGE LANGUAGES SPOKEN:GREEK LEARNING BARRIERS / SPECIAL NEEDS CHANGE FROM LAST VISIT?NO BARRIERS TO LEARNING?NO HEARING IMPAIRED?NO VISION IMPAIRED?YES :CORRECTIVE LENSES COGNITIVELY IMPAIRED?NO READINESS TO LEARN?YES LEARNING PREFERENCES?NO LEARNING CAPABILITIES PRESENT?YES EMOTIONAL BARRIERS?NO SPECIAL DEVICES?YES :CANE, WALKER, 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 DIET: REGULAR. EXERCISE: NO REGULAR EXERCISE, SMALL WALKS. MARITAL STATUS: . PAIN CLINIC PFS, CLERGY, PUBLIC HEALTH REFERRALS PFS REFERRAL NEEDED?NO CLERGY REFERRAL NEEDED?NO PUBLIC HEALTH REFERRAL NEEDED?NO HAS THE PATIENT BEEN EDUCATED REGARDING HIS/HER PLAN OF CARE?YES HAS THE PATIENT BEEN EDUCATED REGARDING PAIN, THE RISK FOR PAIN, THE IMPORTANCE OF EFFECTIVE PAIN MANAGEMENT, AND THE PAIN ASSESSMENT PROCESS?YES ADVANCE DIRECTIVE ADVANCE DIRECTIVE DISCUSSED WITH PATIENT:YES PT. HAS HCP, DAUGHTER DARIO PICKETT [phone], DAUGHTER DEANDRA BECKHAM [phone] REVIEWED WITH PT 04/15/18 1105 LASREVIEWED WITH PT 04/30/18 1000 LASREVIEWED WITH PATIENT 06/11/18 1042 JSREVIEWED WITH PATIENT 08/01/18 1033 JS 12/09/18 REVIEWED WITH PT. AD. HOSPITALIZATION/MAJOR DIAGNOSTIC PROCEDURE I&D MRSA ABDOMEN ABSCESS 05/2010 ACUTE DYSPNEA/HYPOXIA ([facility] PRIOR NORMAL MEAL)-ELISA AWOKE 530 2 WANDA, THEN IMMEDIATELY CAUSED COUGH/DYSPNEA-FELT ASPIRATION PN, IN ED RECEIVED ALBUTEROL NEB X 3 THEN WENT INTO AFIB C RVR, CONVERTED IN ED C IV AMIODARONE 150 X 2, -BLE DVT US,- CXR X 2 (09/09, 09/09-09/11/14 A. FIB WITH SURGERIES SURGERIES REVIEW OF SYSTEMS REVIEWED BY: PROVIDER: AYANA Neumann CONSTITUTIONAL: ANY CHANGE IN YOUR MEDICAL CONDITION? NO . CHILLS NO . FEVER NO . INFECTION: DO YOU HAVE NEW INFECTIONS? NO . DO YOU HAVE HISTORY OF MRSA? YES, YEARS AGO ON ABDOMEN--HAD 3 NEGATIVE CULTURES AFTER . MUSCULOSKELETAL: ANY NEW PATTERNS OF PAIN OR NUMBNESS? NO . GASTROENTEROLOGY: ANY NEW CHANGE IN BOWEL CONTROL? NO . GENITOURINARY: ANY NEW CHANGE IN BLADDER CONTROL? NO . IS THERE A CHANCE YOU COULD BE ? NO . HEMATOLOGY/LYMPH: DO YOU TAKE ANY BLOOD THINNERS? (FOR EXAMPLE- COUMADIN, PLAVIX, AGGRENOX, PLATEL, PRADAXA, OR XARELTO) YES, XARELTO . WHEN WAS YOUR LAST DOSE? DATE: TIME:12/08 1800 . NEUROLOGY: HAVE YOU FALLEN IN THE PAST 12 MONTHS? NO . ANY NEW EXTREMITY NUMBNESS OR WEAKNESS? NO . CARDIOLOGY: DO YOU HAVE A PACEMAKER OR DEFIBRILLATOR? NO . RESPIRATORY: HAVE YOU BEEN SICK IN THE PAST WEEK? NO . FEVER NO . FLU LIKE SYMPTOMS? NO . COUGH NO . INTEGUMENTARY: DO YOU HAVE ANY RASHES OR OPEN SORES? NO . ALLERGIC/IMMUNO: ARE YOU ALLERGIC TO IV DYE? NO . ANY NEW ALLERGIES? NO . PSYCHIATRIC: DO YOU HAVE THOUGHTS OF HURTING YOURSELF OR SOMEONE ELSE? NO . ARE YOU ABUSED, NEGLECTED, OR IN AN UNSAFE ENVIRONMENT? NO . ENDOCRINOLOGY: ARE YOU DIABETIC? NO . OTHER: DO YOU NEED ANY PRESCRIPTIONS? NO . IF YES, PLEASE LIST: ____ . ANY NEW PROBLEMS WITH YOUR MEDICATIONS? NO . WHEN DID YOU LAST EAT? ____ . WHEN DID YOU LAST DRINK? ____ . WHAT DID YOU LAST DRINK? ____ . NAME OF PERSON DRIVING YOU HOME? ____ . DO YOU HAVE ANY OTHER QUESTIONS OR CONCERNS NO . VITAL SIGNS WT 270 LBS, HT 63 IN, BMI 47.82 INDEX, BP 170/60 MANUAL, HR 70 /MIN, RR 18 /MIN, TEMP 97.0 F, OXYGEN SAT % 98%, SAFE IN ENV? (Y/N) Y, NA INITIALS AW 0925, REVIEWED BY: AD. EXAMINATION GENERAL EXAMINATION: GENERAL APPEARANCE:NO ACUTE DISTRESS, WELL NOURISHED AND HYDRATED. PSYCHAPPROPRIATE MOOD AND AFFECT . LUNGS:CLEAR TO AUSCULTATION BILATERALLY, NO WHEEZES, RHONCHI, RALES. HEART:NO MURMURS, REGULAR RATE AND RHYTHM. BACK: LIMITED ROM TENDER LUMBAR PARASPINAL MUSCLES SLR + LEFT SIDE. ASSESSMENTS LUMBOSACRAL RADICULOPATHY DUE TO DEGENERATIVE JOINT DISEASE OF SPINE - M47.27 (PRIMARY) TREATMENT LUMBOSACRAL RADICULOPATHY DUE TO DEGENERATIVE JOINT DISEASE OF SPINE CLINICAL NOTES: ISTOP REGISTRY REVIEWED AND DEMONSTRATES COMPLLIANCE. (REF # [id number] ) BRINGS IN MEDICATIONS WHICH IS APPROPRIATE FOR WHAT WAS DISPENSED. RECENT URINE TOXICOLOGY REVIEWED. NO UNAUTHORIZED MEDICATIONS. NO ILLICIT SUBSTANCES AND PRESCRIBED MEDICATIONS WERE PRESENT. LESI L4-L5, L5-S1.PATIENT ADVISED TO USE HER LYRICA PRESCRIBED. PREVENTIVE MEDICINE PAIN CLINIC TEACHING: PROCEDURE TEACHING PT DECLINED PRINTED INFORAMTION ON EPIDURALS STATING SHE HAS HAD THEM AND IS FAMILIAR WITH THE PROCESS. PRINTED PRE-PROCDURE INSTRUCTIONS GIVEN TO AND REVIEWED WITH PT AND SHE VERBALIZED UNDERSTANDING. AD. PROCEDURE CODES [id number] ESTABILISHED PATIENT [facility] CHARGE DISPOSITION & COMMUNICATION FOLLOW UP POST PROCEDURE (REASON: LESI L4-L5, L5-S1) ELECTRONICALLY SIGNED BY YVETTE BAEZ ON 12/10/2018 AT 08:21 AM EDT DISCLAIMER : THIS IS A VISIT SUMMARY EXTRACTED FROM THE [employer] CHART. IT IS NOT A COPY OF THE [employer] PROGRESS NOTE. VINCENT
== END ==
LOC: M PAIN 09:15
PROVIDERS: ATTEND Nurse Practitioner Family
DX: M47.27 Other spondylosis with radiculopathy, lumbosacral region (principal); I10 Essential (primary) hypertension; Z98.84 Bariatric surgery status; E55.9 Vitamin D deficiency, unspecified; D50.9 Iron deficiency anemia, unspecified; Z86.718 Personal history of other venous thrombosis and embolism; R73.01 Impaired fasting glucose; K21.9 Gastro-esophageal reflux disease without esophagitis; G47.33 Obstructive sleep apnea (adult) (pediatric); Z86.14 Personal history of Methicillin resistant Staphylococcus aureus infection; Z87.891 Personal history of nicotine dependence; Z88.0 Allergy status to penicillin; Z88.1 Allergy status to other antibiotic agents; Z88.4 Allergy status to anesthetic agent; Z88.5 Allergy status to narcotic agent; Z88.8 Allergy status to other drugs, medicaments and biological substances; E66.01 Morbid (severe) obesity due to excess calories; Z68.42 Body mass index [BMI] 45.0-49.9, adult; Z79.01 Long term (current) use of anticoagulants; Z79.899 Other long term (current) drug therapy

== ENCOUNTER → 2018-12-12 | Outpatient (REF) | payer MEDICARE, MEDICAID ==
[2018-12-12 10:15] LABS: BASO # 0.1 10^3/uL (0.0-0.2); EOS # 0.2 10^3/uL (0.0-0.50); EOS % 3.5 % (0.0-3.0); HEMATOCRIT 41.3 % (36.0-47.0); HEMOGLOBIN 12.5 g/dl (12.0-15.5); LYMPH % 29.4 % (24.0-44.0); MEAN CORPUSCULAR HEMOGLOBIN 26.6 pg (27.0-33.0); MEAN CORPUSCULAR HGB CONC 30.3 g/dl (32.0-36.5); MEAN CORPUSCULAR VOLUME 87.9 fl (80.0-96.0); MONO # 0.4 10^3/uL (0.0-0.8); MONO % 6.3 % (0.0-5.0); NEUTROPHILS # 4.1 10^3/uL (1.8-7.7); NEUTROPHILS % 59.5 % (36.0-66.0); PLATELET COUNT, AUTOMATED 363 10^3/uL (150-450)
[2018-12-12 10:30] LABS: ALBUMIN 3.6 GM/DL (3.2-5.2); ALT/SGPT 18 U/L (12-78); BILIRUBIN,TOTAL 0.4 MG/DL (0.2-1.0); BLOOD UREA NITROGEN 15 MG/DL (7-18); CALCIUM LEVEL 8.5 MG/DL (8.8-10.2); CARBON DIOXIDE LEVEL 27 MEQ/L (21-32); CHLORIDE LEVEL 110 MEQ/L (98-107); CHOLESTEROL LEVEL 129 MG/DL (<200); CHOLESTEROL RISK RATIO 2.345 (<5); CREATININE FOR GFR 0.74 MG/DL (0.55-1.30); FREE T4 1.04 NG/DL (0.76-1.46); GLOMERULAR FILTRATION RATE > 60.0 (>45); GLUCOSE, FASTING 106 MG/DL (70-100); HDL CHOLESTEROL 55 MG/DL (>40); LDL CHOLESTEROL 54 MG/DL (<100); NON-HDL-C 74 MG/DL; POTASSIUM SERUM 4.4 MEQ/L (3.5-5.1); SODIUM LEVEL 143 MEQ/L (136-145); TOTAL PROTEIN 6.7 GM/DL (6.4-8.2); TRIGLYCERIDES LEVEL 98 MG/DL (<150)
[2018-12-12 10:34] LABS: TOTAL 25(OH) VITAMIN D 51.4 NG/ML (30.0-100.0)
== END ==
LOC: M SFHCPLAZ 07:46
PROVIDERS: ATTEND Family Medicine
DX: D50.9 Iron deficiency anemia, unspecified (principal); E55.9 Vitamin D deficiency, unspecified; I48.91 Unspecified atrial fibrillation; R73.01 Impaired fasting glucose; E66.01 Morbid (severe) obesity due to excess calories; Z68.42 Body mass index [BMI] 45.0-49.9, adult
CPT/HCPCS: 36415; 80053; 80061; 82306; 83036; 83525; 83970; 84439; 84443; 85025; 85046; 96372; G0463; J3420

== ENCOUNTER → 2018-12-23 | Outpatient (RCR) | payer MEDICARE, MEDICAID | LOC: M PT 11-28 10:37 | PROVIDERS: ATTEND Family Medicine | DX: M75.42 Impingement syndrome of left shoulder (principal) ==

== ENCOUNTER → 2018-12-31 | Outpatient (CLI) | payer MEDICARE, MEDICAID ==
[~2018-12-31] MED LIST changes: +ISOVUE-M 300 61% 15ML VIAL (Q9967) As Ordered ONE; +LIDOCAINE 1% SDV INJ 30 ML VIAL As Ordered ONE; +diazePAM 5 MG TAB As Ordered ONE; +methylPREDNISolone SUSP 40 MG/ML (DEPO-medrol) VIAL (J1030) As Ordered ONE; +oxyCODONE 5MG TAB As Ordered ONE
--- NOTE | 2018-12-31 14:55 | REP ---
Partial lumbar spine series: Three views . History: Injection procedure for pain. 42 seconds of fluoroscopy time is reported. Findings: A sequence of three fluoroscopically obtained last image hold procedural spot radiographs of the lumbar spine document needle position and contrast injection associated with injection procedure. Electronically Signed by Kenton Mir MD 12/31/2018 02:46 P
--- NOTE | 2019-01-17 23:43 | ECWPNPC ---
PATIENT NAME: NISHA MUNSON : 1955 GENDER: FEMALE VISIT DATE: 12/31/2018 DISCHARGE DATE: 12/31/18 1258 VISIT LOCKED DATE TIME: PHYSICIAN: GALI LEWIS MD PHYSICIAN PAGER NO: [phone] RESOURCE: GALI LEWIS MD REASON FOR APPOINTMENT 1. LESI L4-L5 HISTORY OF PRESENT ILLNESS HISTORY OF PRESENT ILLNESS: PAIN THE PATIENT DESCRIBES THE PAIN... FALL RISK SCREENING: SCREENING :NO FALLS REPORTED IN THE LAST YEAR CURRENT MEDICATIONS TAKING VITAMIN B12 1000 MCG SC . SC EVERY 8 WEEKS, NOTES: 12/05/18 TAKING PROAIR HFA 108 (90 BASE) MCG/ACT AEROSOL SOLUTION 2 PUFFS NEEDED INHALATION QID PRN, NOTES: MONTHS AGO TAKING FERROUS GLUCONATE 325 MG CAPSULE 1 TABLET ORALLY TWICE DAILY, NOTES: 12/30/18 1700 TAKING VITAMIN D 5000 TABLET 1 TABLET ORALLY TID, NOTES: 12/30/18 1500 TAKING CALCIUM 600+D HIGH POTENCY 600-400 MG-UNIT TABLET 1 TABLET WITH FOOD ORALLY TWICE A DAY, NOTES: 12/30/18 0800 TAKING XARELTO 20 MG TABLET 1 TAB(S) ORAL AT DINNER TIME, NOTES: 12/25/18 TAKING METOPROLOL TARTRATE 25 MG TABLET 1/2 TABLET ORALLY DAILY AT BEDTIME, NOTES: 12/30/182029 TAKING FLECAINIDE ACETATE 50 MG TABLET 1 TAB ORAL BID, NOTES: 0745 TAKING LIDODERM 5 % PATCH 1 PATCH TO SKIN REMOVE AFTER 12 HOURS EXTERNALLY APPLY 2 PATCHES TO RIGHT THORACIC REGION FOR SHINGLES - ON 12 HRS OFF 12 HRS, NOTES: 12/30/18 AM TAKING LYRICA 100 MG CAPSULE 1 CAPSULE ORALLY BID MDD2, NOTES: 12/30/182029 TAKING RECLAST 5 MG/100ML SOLUTION DIRECTED INTRAVENOUS , NOTES: 2 MONTHS AGO TAKING SUCRALFATE 1 GM TABLET 1 TABLET ON AN EMPTY STOMACH ORALLY TWICE A DAY, NOTES: 0630 TAKING PANTOPRAZOLE SODIUM 40 MG TABLET DELAYED RELEASE 1 TABLET ORALLY BID, NOTES: 0630 TAKING OXYCODONE HCL 10 MG TABLET 1 TABLET NEEDED ORALLY TID, NOTES: 12/30/18 1500 NOT-TAKING NYSTATIN [id number] UNITS/G TOPICAL OINTMENT . APPLIED TOPICALLY DIRECTED BID X 10 DAYS C FLARES NOT-TAKING AMITRIPTYLINE HCL 25 MG TABLET 1 TABLET ORALLY BEFORE BEDTIME MEDICATION LIST REVIEWED AND RECONCILED WITH THE PATIENT PAST MEDICAL HISTORY 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 12/2008-SETTER HYPERTENSION ALLERGIC RHINITIS H/O IMMUNOTHERAPY X >10Y-STOPPED 2 INADEQUATE RESPONSE NONALCOHOLIC FATTY LIVER DISEASE C MILD CHRONIC ELEVATED ALP OBESITY, MORBID STATUS POST R-Y GASTRIC BYPASS 06/2006, 12/29/15-MARYJANE VITAMIN D DEFICIENCY ANEMIA, IRON/FE DEFICIENCY HISTORY OF RIGHT LOWER EXTREMITY DVT X2 IMPAIRED FASTING GLUCOSE HISTORY OF NICOTINE ADDICTION-SMOKED 7 CIGS QD X 10Y, QUIT AT 28 YO-04/2012 FEV1 2.3L (99%)/RATIO 108% GERD-11/2014 NORMAL EGD-REINDL TUBULAR ADENOMA BY 11/2014 COLONOSCOPY-REINDL ATRIAL FIBRILLATION, [id number] POD 2 TKR 05/2015- CONVERTED TO SR C CARDIOVERSION LISA, MODERATE-07/2017 HST JLUIS 17 C SAO2 TO 88% HO MRSA ABSCESS LUMBAR DJD-11/2017 MRI L5/S1 BULGE EXTENDING INTO B NF DISPLACING R S1 ROOT, MILD L4/5 CCS R T5 ZOSTER RXED C VALCYC/PRED 05/2018 IMPINGEMENT AND SPURRING LEFT SHOULDER ALLERGIES PENICILLIN (FOR ALLERGIES USE ONLY): RASH - ALLERGY ERYTHROMYCIN: RASH - ALLERGY DOXYCYCLINE HYCLATE: RASH - ALLERGY TALWIN: RASH HIVES - ALLERGY NOVACAINE (PT NOTES SHE WAS OK WITH RECENT LIDOCAI: SWELLING - ALLERGY BACTRIM: RASH - ALLERGY TETRACYCLINE HCL: HIVES - ALLERGY VICODIN: ITCH - ALLERGY SINGULAIR: GERD - SIDE EFFECTS CODEINE SULFATE: UNCONSCIOUSNESS - ALLERGY GABAPENTIN: IRRITABILITY/AGGRESSIVENESS - SIDE EFFECTS SURGICAL HISTORY I&D ABDOMEN ABSCESS 05/2010 OPEN GASTRIC BYPASS 2007 PARTIAL HYSTERECTOMY 2008 RIGHT SHOULDER SURGERY (X2) 2008 AND 2009 APPENDECTOMY AGE 9 RIGHT WRIST SURGERY X 2 1980S THROAT TUMOR AGE 16 SURGERY FOR DEVIATED SEPTUM AGE 18 AD [id number] 02/2014 R TKR- DR. HUYNH-[place] 06/20/15 GASTRIC BYPASS REVISION-MARYJANE 12/29/15 L TKR-DR. HUYNH-SOS 01/01/17 ROBOTIC VENTRAL HERNIA REPAIR 2 SURGICAL VENTRAL HERNIA-MARYJANE 05/16/17 HAS IVC FILTER FAMILY HISTORY FATHER: 66 YRS, KIDNEY FAILURE MOTHER: 78 YRS, HTN, PACEMAKER, DIAGNOSED WITH HYPERTENSION SIBLINGS: ALIVE, DIABETES, HYPERTENSION MATERNAL GRAND FATHER: , BRAIN CANCER MATERNAL GRAND MOTHER: , COLON CARCINOMA 1 SON(S) , 2 DAUGHTER(S) . MGF AND COUSIN HAD COLON CA.\\\\NDAUGHTERS-CHRONIC BACK PAIN\\\\NSON-HAD THYROIDECTOMY--UNSURE OF DIAGNOSIS. SOCIAL HISTORY GENERAL: TOBACCO USE ARE YOU A:FORMER SMOKER HOW LONG HAS IT BEEN SINCE YOU LAST SMOKED?> 10 YEARS HIV / HEP-C SCREENING HIV TEST OFFERED TO PATIENT:YES DATE OFFERED:11/05/2017 TEST ACCEPTED:NO REASON:PATIENT DECLINED BROCHURE PROVIDED TO PATIENTYES HEP-C TEST OFFERED TO PATIENT:YES DATE OFFERED:11/22/2016 TEST ACCEPTED:NO REASON:PATIENT DECLINED DIET: REGULAR. LANGUAGE LANGUAGES SPOKEN:INDIAN DOMESTIC VIOLENCE DO YOU FEEL SAFE IN YOUR ENVIRONMENT?YES BMI CARE GOAL FOLLOW-UP ABOVE NORMAL BMI FOLLOW-UPLIFESTYLE EDUCATION REGARDING DIET RECREATIONAL DRUG USE DRUG USE?NO EXERCISE: NO REGULAR EXERCISE, SMALL WALKS. LEARNING BARRIERS / SPECIAL NEEDS CHANGE FROM LAST VISIT?NO BARRIERS TO LEARNING?NO HEARING IMPAIRED?NO VISION IMPAIRED?YES :CORRECTIVE LENSES COGNITIVELY IMPAIRED?NO READINESS TO LEARN?YES LEARNING PREFERENCES?NO LEARNING CAPABILITIES PRESENT?YES EMOTIONAL BARRIERS?NO SPECIAL DEVICES?YES :CANE, WALKER, OTHER WALKING CANE INSTALLMENT DEALER NEEDED?NO PAIN CLINIC PFS, CLERGY, PUBLIC HEALTH REFERRALS PFS REFERRAL NEEDED?NO CLERGY REFERRAL NEEDED?NO PUBLIC HEALTH REFERRAL NEEDED?NO HAS THE PATIENT BEEN EDUCATED REGARDING HIS/HER PLAN OF CARE?YES HAS THE PATIENT BEEN EDUCATED REGARDING PAIN, THE RISK FOR PAIN, THE IMPORTANCE OF EFFECTIVE PAIN MANAGEMENT, AND THE PAIN ASSESSMENT PROCESS?YES LATEX QUESTIONNAIRE LATEX ALLERGY : HAVE YOU EVER DEVELOPED ANY TYPE OF REACTION AFTER HANDLING LATEX PRODUCTS SUCH RUBBER GLOVES, CONDOMS, DIAPHRAGMS, BALLOONS, SOCKS, OR UNDERWEAR?NO LATEX ALLERGY : HAVE YOU EVER DEVELOPED ANY TYPE OF REACTION DURING OR AFTER DENTAL APPOINTMENT, VAGINAL/RECTAL EXAMINATION, SURGICAL PROCEDURE, OR ANY OTHER EXPOSURE?NO LATEX RISK : HAVE YOU EVER HAD ANY DIFFICULTY BREATHING OR HIVES AFTER EATING OR HANDLING ANY FRUITS, OR VEGETABLES; SUCH KIWI, BANANAS, STONE FRUITS, OR CHESTNUTSNO LATEX RISK : DO YOU HAVE A PREVIOUS PERSONAL HISTORY OF MORE THAN NINE SURGERIES, SPINA BIFIDA, OR REPEATED CATHERTIZATIONS? NO LATEX RISK : ARE YOU FREQUENTLY EXPOSED TO LATEX PRODUCTS IN YOUR OCCUPATION?NO DATE ASKED : 12/09/2018 CAFFEINE CAFFEINE USE?NO ADVANCE DIRECTIVE ADVANCE DIRECTIVE DISCUSSED WITH PATIENT:YES PT. HAS HCP, DAUGHTER DARIO PICKETT [phone], DAUGHTER DEANDRA BECKHAM [phone] ANABAPTISM [id number] WORSHIP MARITAL STATUS: . ALCOHOL SCREENING DID YOU HAVE A DRINK CONTAINING ALCOHOL IN THE PAST YEAR?NO POINTS0 INTERPRETATIONNEGATIVE OCCUPATION: DISABLED. SEXUAL HX HAD SEX IN THE LAST 12 MONTHS (VAGINAL, ORAL, OR ANAL)?NO HAVE YOU EVER HAD AN STD?NO LMP:HYSTER REVIEWED WITH PT 04/15/18 1105 LASREVIEWED WITH PT 04/30/18 1000 LASREVIEWED WITH PATIENT 06/11/18 1042 JSREVIEWED WITH PATIENT 08/01/18 1033 JS 12/09/18 REVIEWED WITH PT. ADREVIEWED WITH PATIENT 12/31/18 1003 JS. HOSPITALIZATION/MAJOR DIAGNOSTIC PROCEDURE I&D MRSA ABDOMEN ABSCESS 05/2010 ACUTE DYSPNEA/HYPOXIA ([facility] PRIOR NORMAL MEAL)-ELISA AWOKE 530 2 WANDA, THEN IMMEDIATELY CAUSED COUGH/DYSPNEA-FELT ASPIRATION PN, IN ED RECEIVED ALBUTEROL NEB X 3 THEN WENT INTO AFIB C RVR, CONVERTED IN ED C IV AMIODARONE 150 X 2, -BLE DVT US,- CXR X 2 (09/09, 09/09-09/11/14 A. FIB WITH SURGERIES SURGERIES REVIEW OF SYSTEMS REVIEWED BY: PROVIDER: . CONSTITUTIONAL: ANY CHANGE IN YOUR MEDICAL CONDITION? NO . CHILLS NO . FEVER NO . INFECTION: DO YOU HAVE NEW INFECTIONS? NO . DO YOU HAVE HISTORY OF MRSA? YES, STATES HISTORY OF, NO CURRENT MRSA INFECTION . MUSCULOSKELETAL: ANY NEW PATTERNS OF PAIN OR NUMBNESS? YES, STATES INCREASED PAIN AND RADIATION DOWN LEFT LEG WORSE . GASTROENTEROLOGY: ANY NEW CHANGE IN BOWEL CONTROL? NO . GENITOURINARY: ANY NEW CHANGE IN BLADDER CONTROL? NO . IS THERE A CHANCE YOU COULD BE ? NO . HEMATOLOGY/LYMPH: DO YOU TAKE ANY BLOOD THINNERS? (FOR EXAMPLE- COUMADIN, PLAVIX, AGGRENOX, PLATEL, PRADAXA, OR XARELTO) YES, XARELTO . WHEN WAS YOUR LAST DOSE? DATE: 12/25/18TIME: 1800 . NEUROLOGY: HAVE YOU FALLEN IN THE PAST 12 MONTHS? NO . ANY NEW EXTREMITY NUMBNESS OR WEAKNESS? NO . CARDIOLOGY: DO YOU HAVE A PACEMAKER OR DEFIBRILLATOR? NO . RESPIRATORY: HAVE YOU BEEN SICK IN THE PAST WEEK? NO . FEVER NO . FLU LIKE SYMPTOMS? NO . COUGH NO . INTEGUMENTARY: DO YOU HAVE ANY RASHES OR OPEN SORES? NO . ALLERGIC/IMMUNO: ARE YOU ALLERGIC TO IV DYE? NO . ANY NEW ALLERGIES? NO . PSYCHIATRIC: DO YOU HAVE THOUGHTS OF HURTING YOURSELF OR SOMEONE ELSE? NO . ARE YOU ABUSED, NEGLECTED, OR IN AN UNSAFE ENVIRONMENT? NO . ENDOCRINOLOGY: ARE YOU DIABETIC? NO . OTHER: DO YOU NEED ANY PRESCRIPTIONS? NO . IF YES, PLEASE LIST: ____ . ANY NEW PROBLEMS WITH YOUR MEDICATIONS? NO . WHEN DID YOU LAST EAT? ____12/30/181999 . WHEN DID YOU LAST DRINK? ____12/31/1845 . WHAT DID YOU LAST DRINK? ____WATER . NAME OF PERSON DRIVING YOU HOME? ____DARIO IBARRA . DO YOU HAVE ANY OTHER QUESTIONS OR CONCERNS NO . VITAL SIGNS WT 270.8 LBS, HT 63 IN, BMI 47.96 INDEX, BP 148/76 MM HG, HR 68 /MIN, RR 18 /MIN, TEMP 97.2 F, OXYGEN SAT % 99%, SAFE IN ENV? (Y/N) YES, NA INITIALS NH 09:15, REVIEWED BY: KULDIP. ASSESSMENTS INTERVERTEBRAL DISC DISORDER WITH RADICULOPATHY OF LUMBAR REGION - M51.16 (PRIMARY) SPINAL STENOSIS OF LUMBAR REGION, UNSPECIFIED WHETHER NEUROGENIC CLAUDICATION PRESENT - M48.061 PROCEDURES PRE PROCEDURE DIAGNOSIS LUMBAR DISC DISORDER WITH RADICULOPATHY, LUMBAR SPINAL STENOSIS POST PROCEDURE DIAGNOSIS LUMBAR DISC DISORDER WITH RADICULOPATHY , LUMBAR SPINAL STENOSIS PROCEDURE LUMBAR EPIDURAL STEROID INJECTION UNDER FLUOROSCOPIC GUIDANCE SURGEON DR. GALI LEWIS CLIPPING MARKER NONE ANESTHESIA LOCAL PRE PROCEDURE NOTE THE PATIENT HAS A HISTORY OF CHRONIC LOW BACK PAIN. I EVALUATE THE PATIENT AND REVIEWED THE CHART. I WENT OVER THE RISKS, ALTERNATIVES, AND BENEFITS ASSOCIATED WITH THIS PROCEDURE. THE PATIENT WOULD LIKE TO PROCEED AND GIVE CONSENT TO PERFORMED THE PROCEDURE. THE PATIENT DENIES UNEXPLAINABLE WEIGHT LOSS, FEVER, CHILLS, OR NEW CHANGES IN URINARY OR BOWEL CONTROL. DESCRIPTION OF PROCEDURE THE PATIENT WAS BROUGHT TO THE PROCEDURE ROOM AND PLACED IN THE PRONE POSITION. THE LUMBOSACRAL AREA WAS CLEANED WITH BETADINE SOLUTION AND DRAPED ASEPTICALLY. THE PROCEDURE WAS DONE UNDER STERILE CONDITIONS. I CHECKED LATERALITY AND THE LEVEL WHERE THE PROCEDURE WAS GOING TO BE PERFORMED WITH THE PATIENT AND THE SUPPORTING STAFF AT THE MOMENT OF THE TIME OUT IN THE PROCEDURE ROOM. UNDER FLUOROSCOPIC GUIDANCE, THE TARGET POINT WAS SELECTED AT THE INTERLAMINAR LEVEL OF L4-L5. LIDOCAINE WAS USED TO NUMB THE SKIN AND THE SUBCUTANEOUS TISSUE BELOW IT. EPIDURAL TUOHY NEEDLE, 17-GAUGE, WAS ADVANCED UNDER FLUOROSCOPIC GUIDANCE AND FOLLOWING PATIENT FEEDBACK UNTIL THE EPIDURAL SPACE WAS REACHED, 7 CM DEEP INTO THE SKIN BY THE LOSS OF RESISTANCE TECHNIQUE. ISOVUE M DYE 30%, 0.25 ML, WAS INJECTED SHOWING ADEQUATE SPREAD OF THE DYE. THEN, A SOLUTION OF 3 ML OF NORMAL SALINE WITH DEPO-MEDROL 60 MG WAS INJECTED SLOWLY FOLLOWING PATIENT FEEDBACK. THERE WAS NO EVIDENCE OF BLOOD, PARESTHESIA OR CEREBROSPINAL FLUID DURING THE PROCEDURE. THE PATIENT WAS SENT TO THE RECOVERY ROOM. THE PATIENT WAS MOVING THE EXTREMITIES AND DOING WELL. THERE WAS NO COMPLICATION DURING THE PROCEDURE. FLUOROSCOPY TIME WAS 42 SECONDS. POST PROCEDURE NOTE THE PATIENT WILL BE SEEN IN A FOLLOW UP IN THE NEXT FEW WEEKS. INSTRUCTIONS WERE GIVEN, QUESTIONS WERE ANSWERED, AND THE PATIENT EXPRESSED UNDERSTANDING AND AGREES WITH THE PLAN. I, SAIDA CASTELLANOS, DOCUMENTED THE ABOVE INFORMATION ACTING A SCRIBE FOR DR. LEWIS. I HAVE REVIEWED THE ABOVE DOCUMENT, WRITTEN BY SAIDA DUFF AND I VERIFY THAT IT IS ACCURATE. DIAGNOSTIC IMAGING [facility] FLUORO GUIDE SPINE INJECTION (PAIN)[id number] PROCEDURE CODES 6045F RADXPS IN END [id number] PXD [id number] LUMBAR/SACRAL W/ IMAGING DISPOSITION & COMMUNICATION FOLLOW UP 2 WEEKS ELECTRONICALLY SIGNED BY GALI LEWIS MD, MD ON 01/17/2019 AT 04:05 PM EDT DISCLAIMER : THIS IS A VISIT SUMMARY EXTRACTED FROM THE [employer] CHART. IT IS NOT A COPY OF THE [employer] PROGRESS NOTE. VINCENT
== END ==
LOC: M PAIN 08:45
PROVIDERS: ATTEND Anesthesiology
DX: G89.29 Other chronic pain (principal); M51.16 Intervertebral disc disorders with radiculopathy, lumbar region; M48.061 Spinal stenosis, lumbar region without neurogenic claudication; I10 Essential (primary) hypertension; E55.9 Vitamin D deficiency, unspecified; D51.9 Vitamin B12 deficiency anemia, unspecified; K21.9 Gastro-esophageal reflux disease without esophagitis; G47.33 Obstructive sleep apnea (adult) (pediatric); Z79.01 Long term (current) use of anticoagulants; Z79.899 Other long term (current) drug therapy; Z88.0 Allergy status to penicillin; Z88.1 Allergy status to other antibiotic agents; Z88.5 Allergy status to narcotic agent; Z88.8 Allergy status to other drugs, medicaments and biological substances; Z86.79 Personal history of other diseases of the circulatory system; Z86.14 Personal history of Methicillin resistant Staphylococcus aureus infection; Z98.84 Bariatric surgery status; Z87.891 Personal history of nicotine dependence
CPT/HCPCS: 62323; J1030; Q9967

== ENCOUNTER 2019-01-07 08:02 | Outpatient (RCR) | payer MEDICARE, MEDICAID ==
[~2019-01-07 08:02] MED LIST changes: -ISOVUE-M 300 61% 15ML VIAL (Q9967) As Ordered ONE; -LIDOCAINE 1% SDV INJ 30 ML VIAL As Ordered ONE; -diazePAM 5 MG TAB As Ordered ONE; -methylPREDNISolone SUSP 40 MG/ML (DEPO-medrol) VIAL (J1030) As Ordered ONE; -oxyCODONE 5MG TAB As Ordered ONE
== END 2019-01-23 ==
LOC: M PT 08:02
PROVIDERS: ATTEND Family Medicine
DX: M75.42 Impingement syndrome of left shoulder (principal)

== ENCOUNTER → 2019-01-23 | Outpatient (CLI) | payer MEDICARE, MEDICAID ==
[~2019-01-23] MED LIST changes: +FLEC1TAB PO
--- NOTE | 2019-02-10 02:26 | ECWPNPC ---
PATIENT NAME: NISHA MUNSON : 1955 GENDER: FEMALE VISIT DATE: 01/23/2019 DISCHARGE DATE: 01/23/19 1125 VISIT LOCKED DATE TIME: PHYSICIAN: VIOLETA TITUS PHYSICIAN PAGER NO: [phone] RESOURCE: VIOLETA TITUS REASON FOR APPOINTMENT 1. POST PROC HISTORY OF PRESENT ILLNESS HISTORY OF PRESENT ILLNESS: HERE FOR POST PROCEDURE F/U.HAD L4/5-LESI ON 12/31/18.REPORTING ONE WEEK IMPROVEMENT IN LBP WITHOUT ANY IMPROVEMENT IN LEFT LEG PAIN.TRIALED ON LYRICA AND THIS CAUSED SHAKING.RATING PAIN VAS 6/10. PAIN THE PATIENT DESCRIBES THE PAIN... FALL RISK SCREENING: SCREENING :NO FALLS REPORTED IN THE LAST YEAR CURRENT MEDICATIONS TAKING VITAMIN B12 1000 MCG SC . SC EVERY 8 WEEKS TAKING PROAIR HFA 108 (90 BASE) MCG/ACT AEROSOL SOLUTION 2 PUFFS NEEDED INHALATION QID PRN, NOTES: MONTHS AGO TAKING FERROUS GLUCONATE 325 MG CAPSULE 1 TABLET ORALLY TWICE DAILY TAKING VITAMIN D 5000 TABLET 1 TABLET ORALLY TID TAKING CALCIUM 600+D HIGH POTENCY 600-400 MG-UNIT TABLET 1 TABLET WITH FOOD ORALLY TWICE A DAY TAKING XARELTO 20 MG TABLET 1 TAB(S) ORAL AT DINNER TIME TAKING METOPROLOL TARTRATE 25 MG TABLET 1/2 TABLET ORALLY DAILY AT BEDTIME TAKING FLECAINIDE ACETATE 50 MG TABLET 1 TAB ORAL BID TAKING LIDODERM 5 % PATCH 1 PATCH TO SKIN REMOVE AFTER 12 HOURS EXTERNALLY APPLY 2 PATCHES TO RIGHT THORACIC REGION FOR SHINGLES - ON 12 HRS OFF 12 HRS TAKING RECLAST 5 MG/100ML SOLUTION DIRECTED INTRAVENOUS , NOTES: 2 MONTHS AGO TAKING SUCRALFATE 1 GM TABLET 1 TABLET ON AN EMPTY STOMACH ORALLY TWICE A DAY TAKING TYLENOL 8 HOUR 650 MG TABLET EXTENDED RELEASE 2 TABLETS NEEDED ORALLY AKES 500 MG NOT-TAKING LYRICA 100 MG CAPSULE 1 CAPSULE ORALLY BID MDD2, NOTES: PT NO LONGER TAKING UNKNOWN PANTOPRAZOLE SODIUM 40 MG TABLET DELAYED RELEASE 1 TABLET ORALLY BID UNKNOWN OXYCODONE HCL 10 MG TABLET 1 TABLET NEEDED ORALLY TID UNKNOWN NYSTATIN [id number] UNITS/G TOPICAL OINTMENT . APPLIED TOPICALLY DIRECTED BID X 10 DAYS C FLARES UNKNOWN AMITRIPTYLINE HCL 25 MG TABLET 1 TABLET ORALLY BEFORE BEDTIME MEDICATION LIST REVIEWED AND RECONCILED WITH THE PATIENT PAST MEDICAL HISTORY 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 12/2008-SETTER HYPERTENSION ALLERGIC RHINITIS H/O IMMUNOTHERAPY X >10Y-STOPPED 2 INADEQUATE RESPONSE NONALCOHOLIC FATTY LIVER DISEASE C MILD CHRONIC ELEVATED ALP OBESITY, MORBID STATUS POST R-Y GASTRIC BYPASS 06/2006, 12/29/15-MARYJANE VITAMIN D DEFICIENCY ANEMIA, IRON/FE DEFICIENCY HISTORY OF RIGHT LOWER EXTREMITY DVT X2 IMPAIRED FASTING GLUCOSE HISTORY OF NICOTINE ADDICTION-SMOKED 7 CIGS QD X 10Y, QUIT AT 28 YO-04/2012 FEV1 2.3L (99%)/RATIO 108% GERD-11/2014 NORMAL EGD-REINDL TUBULAR ADENOMA BY 11/2014 COLONOSCOPY-REINDL ATRIAL FIBRILLATION, [id number] POD 2 TKR 05/2015- CONVERTED TO SR C CARDIOVERSION LISA, MODERATE-07/2017 HST JLUIS 17 C SAO2 TO 88% HO MRSA ABSCESS- HAS BEEN TREATED AND TESTED NEGATIVE LUMBAR DJD-11/2017 MRI L5/S1 BULGE EXTENDING INTO B NF DISPLACING R S1 ROOT, MILD L4/5 CCS R T5 ZOSTER RXED C VALCYC/PRED 05/2018 IMPINGEMENT AND SPURRING LEFT SHOULDER ALLERGIES PENICILLIN (FOR ALLERGIES USE ONLY): RASH - ALLERGY ERYTHROMYCIN: RASH - ALLERGY DOXYCYCLINE HYCLATE: RASH - ALLERGY TALWIN: RASH HIVES - ALLERGY NOVACAINE (PT NOTES SHE WAS OK WITH RECENT LIDOCAI: SWELLING - ALLERGY BACTRIM: RASH - ALLERGY TETRACYCLINE HCL: HIVES - ALLERGY VICODIN: ITCH - ALLERGY SINGULAIR: GERD - SIDE EFFECTS CODEINE SULFATE: UNCONSCIOUSNESS - ALLERGY GABAPENTIN: IRRITABILITY/AGGRESSIVENESS - SIDE EFFECTS LYRICA: SHAKING /FORGETFULNESS SURGICAL HISTORY I&D ABDOMEN ABSCESS 05/2010 OPEN GASTRIC BYPASS 2007 PARTIAL HYSTERECTOMY 2008 RIGHT SHOULDER SURGERY (X2) 2007 AND 2009 APPENDECTOMY AGE 9 RIGHT WRIST SURGERY X 2 1980S THROAT TUMOR AGE 16 SURGERY FOR DEVIATED SEPTUM AGE 18 AD [id number] 02/2014 R TKR- DR. HUYNH-[place] 06/20/15 GASTRIC BYPASS REVISION-MARYJANE 12/29/15 L TKR-DR. HUYNH-SOS 01/01/17 ROBOTIC VENTRAL HERNIA REPAIR 2 SURGICAL VENTRAL HERNIA-MARYJANE 05/16/17 HAS IVC FILTER FAMILY HISTORY FATHER: 66 YRS, KIDNEY FAILURE MOTHER: 78 YRS, HTN, PACEMAKER, DIAGNOSED WITH HYPERTENSION SIBLINGS: ALIVE, DIABETES, HYPERTENSION MATERNAL GRAND FATHER: , BRAIN CANCER MATERNAL GRAND MOTHER: , COLON CARCINOMA 1 SON(S) , 2 DAUGHTER(S) . MGF AND COUSIN HAD COLON CA.\\\\NDAUGHTERS-CHRONIC BACK PAIN\\\\NSON-HAD THYROIDECTOMY--UNSURE OF DIAGNOSIS. SOCIAL HISTORY GENERAL: TOBACCO USE ARE YOU A:FORMER SMOKER HOW LONG HAS IT BEEN SINCE YOU LAST SMOKED?> 10 YEARS HIV / HEP-C SCREENING HIV TEST OFFERED TO PATIENT:YES DATE OFFERED:11/05/2017 TEST ACCEPTED:NO REASON:PATIENT DECLINED BROCHURE PROVIDED TO PATIENTYES HEP-C TEST OFFERED TO PATIENT:YES DATE OFFERED:11/22/2016 TEST ACCEPTED:NO REASON:PATIENT DECLINED DIET: REGULAR. LANGUAGE LANGUAGES SPOKEN:[place] DOMESTIC VIOLENCE DO YOU FEEL SAFE IN YOUR ENVIRONMENT?YES BMI CARE GOAL FOLLOW-UP ABOVE NORMAL BMI FOLLOW-UPLIFESTYLE EDUCATION REGARDING DIET RECREATIONAL DRUG USE DRUG USE?NO EXERCISE: NO REGULAR EXERCISE, SMALL WALKS. LEARNING BARRIERS / SPECIAL NEEDS CHANGE FROM LAST VISIT?NO BARRIERS TO LEARNING?NO HEARING IMPAIRED?NO VISION IMPAIRED?YES :CORRECTIVE LENSES COGNITIVELY IMPAIRED?NO READINESS TO LEARN?YES LEARNING PREFERENCES?NO LEARNING CAPABILITIES PRESENT?YES EMOTIONAL BARRIERS?NO SPECIAL DEVICES?YES :CANE, WALKER, OTHER WALKING CANE OIL BURNER TECHNICIAN NEEDED?NO PAIN CLINIC PFS, CLERGY, PUBLIC HEALTH REFERRALS PFS REFERRAL NEEDED?NO CLERGY REFERRAL NEEDED?NO PUBLIC HEALTH REFERRAL NEEDED?NO HAS THE PATIENT BEEN EDUCATED REGARDING HIS/HER PLAN OF CARE?YES HAS THE PATIENT BEEN EDUCATED REGARDING PAIN, THE RISK FOR PAIN, THE IMPORTANCE OF EFFECTIVE PAIN MANAGEMENT, AND THE PAIN ASSESSMENT PROCESS?YES LATEX QUESTIONNAIRE LATEX ALLERGY : HAVE YOU EVER DEVELOPED ANY TYPE OF REACTION AFTER HANDLING LATEX PRODUCTS SUCH RUBBER GLOVES, CONDOMS, DIAPHRAGMS, BALLOONS, SOCKS, OR UNDERWEAR?NO LATEX ALLERGY : HAVE YOU EVER DEVELOPED ANY TYPE OF REACTION DURING OR AFTER DENTAL APPOINTMENT, VAGINAL/RECTAL EXAMINATION, SURGICAL PROCEDURE, OR ANY OTHER EXPOSURE?NO LATEX RISK : HAVE YOU EVER HAD ANY DIFFICULTY BREATHING OR HIVES AFTER EATING OR HANDLING ANY FRUITS, OR VEGETABLES; SUCH KIWI, BANANAS, STONE FRUITS, OR CHESTNUTSNO LATEX RISK : DO YOU HAVE A PREVIOUS PERSONAL HISTORY OF MORE THAN NINE SURGERIES, SPINA BIFIDA, OR REPEATED CATHERTIZATIONS? NO LATEX RISK : ARE YOU FREQUENTLY EXPOSED TO LATEX PRODUCTS IN YOUR OCCUPATION?NO DATE ASKED : 12/09/2018 CAFFEINE CAFFEINE USE?NO ADVANCE DIRECTIVE ADVANCE DIRECTIVE DISCUSSED WITH PATIENT:YES PT. HAS HCP, DAUGHTER DARIO PICKETT [phone], DAUGHTER DEANDRA BECKHAM [phone] VOODOO [id number] VOODOO MARITAL STATUS: . ALCOHOL SCREENING DID YOU HAVE A DRINK CONTAINING ALCOHOL IN THE PAST YEAR?NO POINTS0 INTERPRETATIONNEGATIVE OCCUPATION: DISABLED. SEXUAL HX HAD SEX IN THE LAST 12 MONTHS (VAGINAL, ORAL, OR ANAL)?NO HAVE YOU EVER HAD AN STD?NO LMP:HYSTER REVIEWED WITH PT 04/15/18 1105 LASREVIEWED WITH PT 04/30/18 1000 LASREVIEWED WITH PATIENT 06/11/18 1042 JSREVIEWED WITH PATIENT 08/01/18 1033 JS 12/09/18 REVIEWED WITH PT. ADREVIEWED WITH PATIENT 12/31/18 1003 JS. HOSPITALIZATION/MAJOR DIAGNOSTIC PROCEDURE I&D MRSA ABDOMEN ABSCESS 05/2010 ACUTE DYSPNEA/HYPOXIA (QHS PRIOR NORMAL MEAL)-ELISA AWOKE 530 2 WANDA, THEN IMMEDIATELY CAUSED COUGH/DYSPNEA-FELT ASPIRATION PN, IN ED RECEIVED ALBUTEROL NEB X 3 THEN WENT INTO AFIB C RVR, CONVERTED IN ED C IV AMIODARONE 150 X 2, -BLE DVT US,- CXR X 2 (09/09, 09/09-09/11/14 A. FIB WITH SURGERIES SURGERIES REVIEW OF SYSTEMS REVIEWED BY: PROVIDER: VIOLETA CRAWFORD . CONSTITUTIONAL: ANY CHANGE IN YOUR MEDICAL CONDITION? NO . CHILLS NO . FEVER NO . INFECTION: DO YOU HAVE NEW INFECTIONS? NO . DO YOU HAVE HISTORY OF MRSA? NO . MUSCULOSKELETAL: ANY NEW PATTERNS OF PAIN OR NUMBNESS? NO . GASTROENTEROLOGY: ANY NEW CHANGE IN BOWEL CONTROL? NO . GENITOURINARY: ANY NEW CHANGE IN BLADDER CONTROL? NO . IS THERE A CHANCE YOU COULD BE ? NO . HEMATOLOGY/LYMPH: DO YOU TAKE ANY BLOOD THINNERS? (FOR EXAMPLE- COUMADIN, PLAVIX, AGGRENOX, PLATEL, PRADAXA, OR XARELTO) NO . WHEN WAS YOUR LAST DOSE? DATE: TIME: . NEUROLOGY: HAVE YOU FALLEN IN THE PAST 12 MONTHS? NO . ANY NEW EXTREMITY NUMBNESS OR WEAKNESS? NO . CARDIOLOGY: DO YOU HAVE A PACEMAKER OR DEFIBRILLATOR? NO . RESPIRATORY: HAVE YOU BEEN SICK IN THE PAST WEEK? NO . FEVER NO . FLU LIKE SYMPTOMS? NO . COUGH NO . INTEGUMENTARY: DO YOU HAVE ANY RASHES OR OPEN SORES? NO . ALLERGIC/IMMUNO: ARE YOU ALLERGIC TO IV DYE? NO . ANY NEW ALLERGIES? NO . PSYCHIATRIC: DO YOU HAVE THOUGHTS OF HURTING YOURSELF OR SOMEONE ELSE? NO . ARE YOU ABUSED, NEGLECTED, OR IN AN UNSAFE ENVIRONMENT? NO . ENDOCRINOLOGY: ARE YOU DIABETIC? NO . OTHER: DO YOU NEED ANY PRESCRIPTIONS? NO . IF YES, PLEASE LIST: ____ . ANY NEW PROBLEMS WITH YOUR MEDICATIONS? NO . WHEN DID YOU LAST EAT? ____ . WHEN DID YOU LAST DRINK? ____ . WHAT DID YOU LAST DRINK? ____ . NAME OF PERSON DRIVING YOU HOME? ____ . DO YOU HAVE ANY OTHER QUESTIONS OR CONCERNS NO . VITAL SIGNS WT 270.4 LBS, HT 63 IN, BMI 47.89 INDEX, BP 168/71 MM HG, HR 67 /MIN, RR 18 /MIN, TEMP 98.6 F, OXYGEN SAT % 98%, NA INITIALS AW 1037. EXAMINATION GENERAL EXAMINATION: GENERAL APPEARANCE: AWAKE,ALERT ,PLEAASANT . PSYCH AFFECT NORMAL . LUNGS: LUNG DAVID ARE CLEAR TO AUSCULTATION BILATERALLY. GOOD MOVEMENT OF AIR . HEART: S1, S2 IN A REGULAR RATE AND RHYTHM. NO SIGNIFICANT MURMURS, RUBS OR GALLOPS NOTED . LUMBAR SACRAL SPINEPALPATION:TENDER OVER BILAT. L4/5-L5/S1 LUMBAR FACETS WITH FACET LOADING.. DIAGNOSTIC TESTS REVIEWED MRI -12/17/17--L/S SPINE. ASSESSMENTS LUMBAR FACET ARTHROPATHY - M46.96 (PRIMARY) TREATMENT LUMBAR FACET ARTHROPATHY NOTES: REQUEST BILAT L4/5-L5/S1 THER BLOCK W IV SEDHOLD XARELTO DIRECTED,FACET JOINT INJECTION MATERIAL WAS PRINTED,FACET JOINT INJECTION: YOUR EXPERIENCE MATERIAL WAS PRINTED. PREVENTIVE MEDICINE PAIN CLINIC TEACHING: PROCEDURE TEACHING PRINTED AND REVIEWED INFORMATION ON FACET JOINT INJECTION WITH PATIENT. ALSO REVIEWED PRE-PROCEDURE INSTRUCTIONS. PATIENT VERBALIZED AN UNDERSTANDING. JENNIFER URRUTIA 01/23/2019 11:27:43 AM > . PROCEDURE CODES FA211 ESTABILISHED PATIENT [facility] CHARGE DISPOSITION & COMMUNICATION FOLLOW UP IV SED APT/POST PROC (REASON: REQUEST BILAT L4/5-L5/S1 THER BLOCK W IV SED) ELECTRONICALLY SIGNED BY YVETTE HINOJOSA ON 02/09/2019 AT 03:03 PM EDT DISCLAIMER : THIS IS A VISIT SUMMARY EXTRACTED FROM THE [employer] CHART. IT IS NOT A COPY OF THE [employer] PROGRESS NOTE. VINCENT
== END ==
LOC: M PAIN 10:00
PROVIDERS: ATTEND Nurse Practitioner Family
DX: M46.96 Unspecified inflammatory spondylopathy, lumbar region (principal); I10 Essential (primary) hypertension; E55.9 Vitamin D deficiency, unspecified; D50.9 Iron deficiency anemia, unspecified; R73.01 Impaired fasting glucose; G47.33 Obstructive sleep apnea (adult) (pediatric); Z98.84 Bariatric surgery status; Z87.891 Personal history of nicotine dependence; Z88.0 Allergy status to penicillin; Z88.1 Allergy status to other antibiotic agents; Z88.4 Allergy status to anesthetic agent; Z88.5 Allergy status to narcotic agent; Z88.8 Allergy status to other drugs, medicaments and biological substances; Z86.14 Personal history of Methicillin resistant Staphylococcus aureus infection; E66.01 Morbid (severe) obesity due to excess calories; Z68.42 Body mass index [BMI] 45.0-49.9, adult; Z79.899 Other long term (current) drug therapy

== ENCOUNTER 2019-01-28 09:18 | Outpatient (RCR) | payer MEDICARE, MEDICAID ==
[~2019-01-28 09:18] MED LIST changes: -FLEC1TAB PO
[2019-02-02] MEDS ORDERED: FLEC1TAB PO (18:55)
== END 2019-02-22 ==
LOC: M PT 09:18
PROVIDERS: ATTEND Family Medicine
DX: M75.42 Impingement syndrome of left shoulder (principal)

== ENCOUNTER 2019-02-02 18:21 | Emergency (ER) | payer MEDICARE, MEDICAID ==
[~2019-02-02] VITALS: Ht 160 cm; Wt 122.7 kg
[2019-02-02] MEDS ORDERED: FLEC1TAB PO (18:55)
[2019-02-02 19:10] LABS: BASO # 0.1 10^3/uL (0.0-0.2); BASO % 0.6 % (0.0-1.0); EOS # 0.1 10^3/uL (0.0-0.50); EOS % 1.3 % (0.0-3.0); HEMATOCRIT 39.5 % (36.0-47.0); HEMOGLOBIN 12.2 g/dl (12.0-15.5); LYMPH # 2.6 10^3/uL (1.5-4.5); LYMPH % 23.5 % (24.0-44.0); MEAN CORPUSCULAR HEMOGLOBIN 27.2 pg (27.0-33.0); MEAN CORPUSCULAR HGB CONC 30.9 g/dl (32.0-36.5); MONO # 0.8 10^3/uL (0.0-0.8); MONO % 6.9 % (0.0-5.0); NEUTROPHILS # 7.5 10^3/uL (1.8-7.7); NEUTROPHILS % 67.3 % (36.0-66.0); PLATELET COUNT, AUTOMATED 385 10^3/uL (150-450); RED BLOOD COUNT 4.49 10^6/uL (4.00-5.40); WHITE BLOOD COUNT 11.2 10^3/uL (4.0-10.0)
[2019-02-02 19:25] LABS: INR 1.22; PROTHROMBIN TIME 15.6 SECONDS (12.1-14.4)
[2019-02-02 19:31] LABS: BLOOD UREA NITROGEN 27 MG/DL (7-18); CALCIUM LEVEL 9.2 MG/DL (8.8-10.2); CARBON DIOXIDE LEVEL 27 MEQ/L (21-32); CHLORIDE LEVEL 105 MEQ/L (98-107); CK-MB VALUE MASS 1.5 NG/ML (<3.6); CPK CREATINE PHOSPHOKINASE 59 U/L (26-192); CREATININE FOR GFR 0.96 MG/DL (0.55-1.30); GLOMERULAR FILTRATION RATE > 60.0 (>45); GLUCOSE, FASTING 99 MG/DL (70-100); MB/CK RELATIVE INDEX 2.54 (< OR =4); POTASSIUM SERUM 4.4 MEQ/L (3.5-5.1); SODIUM LEVEL 140 MEQ/L (136-145); TROPONIN I < 0.02 NG/ML (< 0.10)
--- NOTE | 2019-02-02 19:42 | REP ---
Chest x-ray: Single view. History: Chest pain. Comparison chest x-ray: August 07, 2017. Findings: EKG monitoring electrodes overlie the chest. Lungs are well inflated and clear. The pleural angles are sharp. Heart size is normal. The aorta slightly tortuous. There are degenerative changes in the thoracic spine. Pulmonary vasculature is not increased. Impression: No active disease. Electronically Signed by Kenton Mir MD 02/02/2019 07:49 P
[2019-02-02] MEDS ORDERED: METOPROLOL TART 25 MG TABLET PO ONE (20:15)
[2019-02-02 22:01] VITALS: BP 179/80
--- NOTE | 2019-02-03 08:15 | ECGEPIP ---
[facility] - ED Test Date: 2019-02-02 Pat Name: NISHA MUNSON Department: Room: - Gender: Female Control Clerk: TC : 1955 Requested By: JORGE CRAWFORD Order Number: [id number] Reading MD: Taz Suarez Measurements Intervals [place] Rate: 108 P: DE: -1 QRS: 32 QRSD: 105 T: 55 QT: 334 QTc: 449 Interpretive Statements ATRIAL FLUTTER WITH RAPID VENTRICULAR RESPONSE MODERATE INTRAVENTRICULAR CONDUCTION DELAY RHYTHM/RATE CHANGE COMPARED TO 08/07/17 Electronically Signed on 02-03-2019 8:15:19 EDT by Taz Suarez
== END 2019-02-02 22:08 | disposition home or self-care (01) ==
LOC: M ED 18:21
DX: I48.92 Unspecified atrial flutter (principal); I10 Essential (primary) hypertension; D50.9 Iron deficiency anemia, unspecified; Z98.84 Bariatric surgery status; Z79.899 Other long term (current) drug therapy; Z79.01 Long term (current) use of anticoagulants; Z88.0 Allergy status to penicillin; Z88.1 Allergy status to other antibiotic agents; Z88.2 Allergy status to sulfonamides; Z88.5 Allergy status to narcotic agent; Z88.8 Allergy status to other drugs, medicaments and biological substances; F17.210 Nicotine dependence, cigarettes, uncomplicated

== ENCOUNTER → 2019-03-11 | Outpatient (CLI) | payer MEDICARE, MEDICAID ==
[~2019-03-11] MED LIST changes: +FLEC1TAB PO
--- NOTE | 2019-03-14 00:15 | ECWPNPC ---
PATIENT NAME: NISHA MUNSON : 1955 GENDER: FEMALE VISIT DATE: 03/11/2019 DISCHARGE DATE: 03/11/19 1505 VISIT LOCKED DATE TIME: PHYSICIAN: GALI LEWIS MD PHYSICIAN PAGER NO: [phone] RESOURCE: GALI LEWIS MD REASON FOR APPOINTMENT 1. PRESEDATE HISTORY OF PRESENT ILLNESS HISTORY OF PRESENT ILLNESS: PAIN THE PATIENT DESCRIBES THE PAIN... 64 YEAR OLD FEMALE PATIENT WITH A HISTORY OF CHRONIC LOW BACK PAIN. THE PATIENT DESCRIBES THE PAIN ACHING, SORE, TENDER, SHARP, AND CONTINUOUS WITH A PAIN SCORE OF 5-10/10 DEPENDING ON PHYSICAL ACTIVITY. THE PATIENT SAYS HER PAIN STARTS IN HER LOW BACK AND RADIATES DOWN HER LEFT LEG. THE PATIENT SAYS SHE HAS A PINS AND NEEDLES FEELING DOWN HER LEFT LEG. THE PATIENT SAYS THAT SHE HAS DIFFICULTY WALKING DUE TO THIS PAIN. PATIENT DENIES UNEXPLAINABLE WEIGHT LOSS, FEVER, CHILLS, NEW CHANGES ON HER URINARY OR BOWEL CONTROL. FALL RISK SCREENING: SCREENING :NO FALLS REPORTED IN THE LAST YEAR CURRENT MEDICATIONS TAKING VITAMIN B12 1000 MCG SC . SC EVERY 8 WEEKS, NOTES: LAST FEBRUARY 13 TAKING PROAIR HFA 108 (90 BASE) MCG/ACT AEROSOL SOLUTION 2 PUFFS NEEDED INHALATION QID PRN, NOTES: MONTHS AGO TAKING FERROUS GLUCONATE 325 MG CAPSULE 1 TABLET ORALLY TWICE DAILY TAKING VITAMIN D 5000 TABLET 1 TABLET ORALLY TID TAKING CALCIUM 600+D HIGH POTENCY 600-400 MG-UNIT TABLET 1 TABLET WITH FOOD ORALLY TWICE A DAY TAKING XARELTO 20 MG TABLET 1 TAB(S) ORAL AT DINNER TIME TAKING METOPROLOL TARTRATE 25 MG TABLET 1 TABLET ORALLY DAILY AT BEDTIME TAKING LIDODERM 5 % PATCH 1 PATCH TO SKIN REMOVE AFTER 12 HOURS EXTERNALLY APPLY 2 PATCHES TO RIGHT THORACIC REGION FOR SHINGLES - ON 12 HRS OFF 12 HRS TAKING RECLAST 5 MG/100ML SOLUTION DIRECTED INTRAVENOUS , NOTES: 5-6 MONTHS AGO TAKING SUCRALFATE 1 GM TABLET 1 TABLET ON AN EMPTY STOMACH ORALLY TWICE A DAY TAKING TYLENOL 8 HOUR 650 MG TABLET EXTENDED RELEASE 2 TABLETS NEEDED ORALLY AKES 500 MG TAKING COMPRESSION STOCKINGS 30-40 MMHG DIRECTED I87.2 DAILY TAKING LEXAPRO 10 MG TABLET 1 TABLET ORALLY ONCE A DAY TAKING PROPAFENONE HCL 150 MG TABLET 1 TABLET ORALLY EVERY 8 HRS, NOTES: PT THINKS SHE WAS JUST STARTED ON THIS FOR A.FIB TAKING OXYCODONE HCL 10 MG TABLET 1 TABLET NEEDED ORALLY TID NOT-TAKING FLECAINIDE ACETATE 50 MG TABLET 1 TAB ORAL BID NOT-TAKING LYRICA 100 MG CAPSULE 1 CAPSULE ORALLY BID MDD2, NOTES: PT NO LONGER TAKING NOT-TAKING PANTOPRAZOLE SODIUM 40 MG TABLET DELAYED RELEASE 1 TABLET ORALLY BID NOT-TAKING NYSTATIN 550740 UNITS/G TOPICAL OINTMENT . APPLIED TOPICALLY DIRECTED BID X 10 DAYS C FLARES NOT-TAKING AMITRIPTYLINE HCL 25 MG TABLET 1 TABLET ORALLY BEFORE BEDTIME MEDICATION LIST REVIEWED AND RECONCILED WITH THE PATIENT PAST MEDICAL HISTORY 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 12/2008-SETTER HYPERTENSION ALLERGIC RHINITIS H/O IMMUNOTHERAPY X >10Y-STOPPED 2 INADEQUATE RESPONSE NONALCOHOLIC FATTY LIVER DISEASE C MILD CHRONIC ELEVATED ALP OBESITY, MORBID STATUS POST R-Y GASTRIC BYPASS 06/2006, 12/29/15-MARYJANE VITAMIN D DEFICIENCY ANEMIA, IRON/FE DEFICIENCY HISTORY OF RIGHT LOWER EXTREMITY DVT X2 IMPAIRED FASTING GLUCOSE HISTORY OF NICOTINE ADDICTION-SMOKED 7 CIGS QD X 10Y, QUIT AT 28 YO-04/2012 FEV1 2.3L (99%)/RATIO 108% GERD-11/2014 NORMAL EGD-REINDL TUBULAR ADENOMA BY 11/2014 COLONOSCOPY-REINDL ATRIAL FIBRILLATION, SQUICRMIOB-OLT-AKYHW POD 2 TKR 05/2015- CONVERTED TO SR C CARDIOVERSION LISA, MODERATE-07/2017 HST JLUIS 17 C SAO2 TO 88% HO MRSA ABSCESS- HAS BEEN TREATED AND TESTED NEGATIVE LUMBAR DJD-11/2017 MRI L5/S1 BULGE EXTENDING INTO B NF DISPLACING R S1 ROOT, MILD L4/5 CCS R T5 ZOSTER RXED C VALCYC/PRED 05/2018 IMPINGEMENT AND SPURRING LEFT SHOULDER ALLERGIES PENICILLIN (FOR ALLERGIES USE ONLY): RASH - ALLERGY ERYTHROMYCIN: RASH - ALLERGY DOXYCYCLINE HYCLATE: RASH - ALLERGY TALWIN: RASH HIVES - ALLERGY NOVACAINE (PT NOTES SHE WAS OK WITH RECENT LIDOCAI: SWELLING - ALLERGY BACTRIM: RASH - ALLERGY TETRACYCLINE HCL: HIVES - ALLERGY VICODIN: ITCH - ALLERGY SINGULAIR: GERD - SIDE EFFECTS CODEINE SULFATE: UNCONSCIOUSNESS - ALLERGY GABAPENTIN: IRRITABILITY/AGGRESSIVENESS - SIDE EFFECTS LYRICA: SHAKING /FORGETFULNESS SURGICAL HISTORY I&D ABDOMEN ABSCESS 05/2010 OPEN GASTRIC BYPASS 2006 PARTIAL HYSTERECTOMY 2008 RIGHT SHOULDER SURGERY (X2) 2007 AND 2009 APPENDECTOMY AGE 9 RIGHT WRIST SURGERY X 2 1980S THROAT TUMOR AGE 16 SURGERY FOR DEVIATED SEPTUM AGE 18 AD [id number]-[id number] 02/2014 R TKR- DR. HUYNH-[place] 06/20/15 GASTRIC BYPASS REVISION-MARYJANE 12/29/15 L TKR-DR. HUYNH-SOS 01/01/17 ROBOTIC VENTRAL HERNIA REPAIR 2 SURGICAL VENTRAL HERNIA-MARYJANE 05/16/17 HAS IVC FILTER FAMILY HISTORY FATHER: 66 YRS, KIDNEY FAILURE MOTHER: 78 YRS, HTN, PACEMAKER, DIAGNOSED WITH HYPERTENSION SIBLINGS: ALIVE, DIABETES, HYPERTENSION MATERNAL GRAND FATHER: , BRAIN CANCER MATERNAL GRAND MOTHER: , COLON CARCINOMA 1 SON(S) , 2 DAUGHTER(S) . MGF AND COUSIN HAD COLON CA.\\\\NDAUGHTERS-CHRONIC BACK PAIN\\\\NSON-HAD THYROIDECTOMY--UNSURE OF DIAGNOSIS. SOCIAL HISTORY GENERAL: TOBACCO USE ARE YOU A:FORMER SMOKER HOW LONG HAS IT BEEN SINCE YOU LAST SMOKED?> 10 YEARS HIV / HEP-C SCREENING HIV TEST OFFERED TO PATIENT:YES DATE OFFERED:11/05/2017 TEST ACCEPTED:NO REASON:PATIENT DECLINED BROCHURE PROVIDED TO PATIENTYES HEP-C TEST OFFERED TO PATIENT:YES DATE OFFERED:11/22/2016 TEST ACCEPTED:NO REASON:PATIENT DECLINED EDUCATION LEVEL OF EDUCATION:NOT FINISHED COLLEGE DIET: REGULAR. LANGUAGE LANGUAGES SPOKEN:ITALIAN DOMESTIC VIOLENCE DO YOU FEEL SAFE IN YOUR ENVIRONMENT?YES BMI CARE GOAL FOLLOW-UP ABOVE NORMAL BMI FOLLOW-UPLIFESTYLE EDUCATION REGARDING DIET RECREATIONAL DRUG USE DRUG USE?NO EXERCISE: NO REGULAR EXERCISE, SMALL WALKS. 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 NEEDED?NO PAIN CLINIC PFS, CLERGY, PUBLIC HEALTH REFERRALS PFS REFERRAL NEEDED?NO CLERGY REFERRAL NEEDED?NO PUBLIC HEALTH REFERRAL NEEDED?NO HAS THE PATIENT BEEN EDUCATED REGARDING HIS/HER PLAN OF CARE?YES HAS THE PATIENT BEEN EDUCATED REGARDING PAIN, THE RISK FOR PAIN, THE IMPORTANCE OF EFFECTIVE PAIN MANAGEMENT, AND THE PAIN ASSESSMENT PROCESS?YES LATEX QUESTIONNAIRE LATEX ALLERGY : HAVE YOU EVER DEVELOPED ANY TYPE OF REACTION AFTER HANDLING LATEX PRODUCTS SUCH RUBBER GLOVES, CONDOMS, DIAPHRAGMS, BALLOONS, SOCKS, OR UNDERWEAR?NO LATEX ALLERGY : HAVE YOU EVER DEVELOPED ANY TYPE OF REACTION DURING OR AFTER DENTAL APPOINTMENT, VAGINAL/RECTAL EXAMINATION, SURGICAL PROCEDURE, OR ANY OTHER EXPOSURE?NO LATEX RISK : HAVE YOU EVER HAD ANY DIFFICULTY BREATHING OR HIVES AFTER EATING OR HANDLING ANY FRUITS, OR VEGETABLES; SUCH KIWI, BANANAS, STONE FRUITS, OR CHESTNUTSNO LATEX RISK : DO YOU HAVE A PREVIOUS PERSONAL HISTORY OF MORE THAN NINE SURGERIES, SPINA BIFIDA, OR REPEATED CATHERIZATIONS? NO LATEX RISK : ARE YOU FREQUENTLY EXPOSED TO LATEX PRODUCTS IN YOUR OCCUPATION?NO DATE ASKED : 12/09/2018 CAFFEINE CAFFEINE USE?NO ADVANCE DIRECTIVE ADVANCE DIRECTIVE DISCUSSED WITH PATIENT:YES PT. HAS HCP, DAUGHTER DARIO PICKETT [phone], DAUGHTER DEANDRA BECKHAM [phone] JEW [id number] SHINTO MARITAL STATUS: . ALCOHOL SCREENING DID YOU HAVE A DRINK CONTAINING ALCOHOL IN THE PAST YEAR?NO POINTS0 INTERPRETATIONNEGATIVE OCCUPATION: DISABLED. SEXUAL HX HAD SEX IN THE LAST 12 MONTHS (VAGINAL, ORAL, OR ANAL)?NO HAVE YOU EVER HAD AN STD?NO LMP:HYSTER REVIEWED WITH PT 04/15/18 1105 LASREVIEWED WITH PT 04/30/18 1000 LASREVIEWED WITH PATIENT 06/11/18 1042 JSREVIEWED WITH PATIENT 08/01/18 1033 JS 12/09/18 REVIEWED WITH PT. ADREVIEWED WITH PATIENT 12/31/18 1003 JS REVIEWED WITH PT 03/11/19 1324 BV. HOSPITALIZATION/MAJOR DIAGNOSTIC PROCEDURE I&D MRSA ABDOMEN ABSCESS 05/2010 ACUTE DYSPNEA/HYPOXIA ([facility] PRIOR NORMAL MEAL)-ELISA AWOKE 530 2 WANDA, THEN IMMEDIATELY CAUSED COUGH/DYSPNEA-FELT ASPIRATION PN, IN ED RECEIVED ALBUTEROL NEB X 3 THEN WENT INTO AFIB C RVR, CONVERTED IN ED C IV AMIODARONE 150 X 2, -BLE DVT US,- CXR X 2 (09/09, 09/09-09/11/14 A. FIB WITH SURGERIES SURGERIES REVIEW OF SYSTEMS REVIEWED BY: PROVIDER: GALI LEWIS MD . CONSTITUTIONAL: ANY CHANGE IN YOUR MEDICAL CONDITION? NO . CHILLS NO . FEVER NO . INFECTION: DO YOU HAVE NEW INFECTIONS? NO . DO YOU HAVE HISTORY OF MRSA? NO . MUSCULOSKELETAL: ANY NEW PATTERNS OF PAIN OR NUMBNESS? NO . GASTROENTEROLOGY: ANY NEW CHANGE IN BOWEL CONTROL? NO . GENITOURINARY: ANY NEW CHANGE IN BLADDER CONTROL? NO . IS THERE A CHANCE YOU COULD BE ? NO . HEMATOLOGY/LYMPH: DO YOU TAKE ANY BLOOD THINNERS? (FOR EXAMPLE- COUMADIN, PLAVIX, AGGRENOX, PLATEL, PRADAXA, OR XARELTO) YES, XARELTO . WHEN WAS YOUR LAST DOSE? DATE: TIME: . NEUROLOGY: HAVE YOU FALLEN IN THE PAST 12 MONTHS? NO . ANY NEW EXTREMITY NUMBNESS OR WEAKNESS? NO . CARDIOLOGY: DO YOU HAVE A PACEMAKER OR DEFIBRILLATOR? NO . RESPIRATORY: HAVE YOU BEEN SICK IN THE PAST WEEK? NO . FEVER NO . FLU LIKE SYMPTOMS? NO . COUGH NO . INTEGUMENTARY: DO YOU HAVE ANY RASHES OR OPEN SORES? NO . ALLERGIC/IMMUNO: ARE YOU ALLERGIC TO IV DYE? NO . ANY NEW ALLERGIES? NO . PSYCHIATRIC: DO YOU HAVE THOUGHTS OF HURTING YOURSELF OR SOMEONE ELSE? NO . ARE YOU ABUSED, NEGLECTED, OR IN AN UNSAFE ENVIRONMENT? NO . ENDOCRINOLOGY: ARE YOU DIABETIC? NO . OTHER: DO YOU NEED ANY PRESCRIPTIONS? NO . IF YES, PLEASE LIST: ____ . ANY NEW PROBLEMS WITH YOUR MEDICATIONS? NO. FLECANIDE DISCONTINUED. STARTED ON ANOTHER MEDICATION FOR ATRIAL FIBRILLATION. . WHEN DID YOU LAST EAT? ____ . WHEN DID YOU LAST DRINK? ____ . WHAT DID YOU LAST DRINK? ____ . NAME OF PERSON DRIVING YOU HOME? ____ . DO YOU HAVE ANY OTHER QUESTIONS OR CONCERNS NO . VITAL SIGNS WT 265.2 LBS, HT 63 IN, BMI 46.97 INDEX, BP 130/82 MM HG, HR 114 /MIN, RR 18 /MIN, TEMP 95.0 F, OXYGEN SAT % 96%, NA INITIALS AW 1246, REVIEWED BY: BV. EXAMINATION GENERAL EXAMINATION: PATIENT IS ALERT O X 3 AND COOPERATIVE. LUNGS CLEAR, TO AUSCULTATION. HEART: NO MURMURS OR GALLOPS; FACIAL CRANIAL NERVES ARE GROSSLY NORMAL. GOOD SYMMETRY OF FACIAL MUSCLE MOVEMENT. NORMAL VISUAL DAVID. ANTALGIC GAIT. LEFT LEG IS WEAKER AT EXTENSION AND FLEXION. STRAIGHT LEG RAISE OF THE LEFT LEG IS POSITIVE AT 40 DEGREES FOR RADICULOPATHY. MRI OF THE LUMBAR SPINE DONE ON 12/13/2017 IS SHOWING BULGING DISCS AND STENOSIS. ASSESSMENTS INTERVERTEBRAL DISC DISORDER WITH RADICULOPATHY OF LUMBAR REGION - M51.16 (PRIMARY) TREATMENT INTERVERTEBRAL DISC DISORDER WITH RADICULOPATHY OF LUMBAR REGION CLINICAL NOTES: WE DISCUSSED SEVERAL ISSUES WITH MRS. MUNSON'S PAIN MANAGEMENT CASE. DUE TO THE LUMBAR RADICULOPATHY, I WOULD LIKE TO MOVE FORWARD WITH A LUMBAR EPIDURAL STEROID INJECTION V/S TRANSFORAMINAL EPIDURAL. WE DISCUSSED THE BENEFITS, RISKS, AND ALTERNATIVES OF THE INJECTIONS AND THE PATIENT WOULD LIKE TO PROCEED. THE PATIENT WOULD LIKE TO MOVE FORWARD WITH IV SEDATION DUE TO PAIN AND ANXIETY ASSOCIATED WITH THE PROCEDURE. THE PATIENT STOPPED USING HER XARELTO ON THIS PAST SATURDAY INSTRUCTED. THE PATIENT WILL FOLLOW UP A FEW WEEKS AFTER THE INJECTION. INSTRUCTIONS WERE GIVEN, QUESTIONS WERE ANSWERED, PATIENT REPORTS UNDERSTANDING AND AGREES WITH THE PLAN. I, SAIDA CASTELLANOS, DOCUMENTED THE ABOVE INFORMATION ACTING A SCRIBE FOR DR. LEWIS. I HAVE REVIEWED THE ABOVE DOCUMENT, WRITTEN BY SAIDA DUFF AND I VERIFY THAT IT IS ACCURATE. . PROCEDURE CODES FA211 ESTABILISHED PATIENT [facility] FACILITY CHARGE [id number] CURRENT MEDS W/DOSAGES DOCUMENTED G8730 PAIN ASSESS POS TOOL F/U PLAN DOC DISPOSITION & COMMUNICATION FOLLOW UP 3 WEEKS ELECTRONICALLY SIGNED BY GALI LEWIS MD, MD ON 03/13/2019 AT 11:31 AM EDT DISCLAIMER : THIS IS A VISIT SUMMARY EXTRACTED FROM THE [employer] CHART. IT IS NOT A COPY OF THE [employer] PROGRESS NOTE. MTDD
== END ==
LOC: M PAIN 12:45
PROVIDERS: ATTEND Anesthesiology
DX: M51.16 Intervertebral disc disorders with radiculopathy, lumbar region (principal); I10 Essential (primary) hypertension; J30.9 Allergic rhinitis, unspecified; K76.0 Fatty (change of) liver, not elsewhere classified; E66.01 Morbid (severe) obesity due to excess calories; Z98.84 Bariatric surgery status; Z68.42 Body mass index [BMI] 45.0-49.9, adult; E55.9 Vitamin D deficiency, unspecified; D50.9 Iron deficiency anemia, unspecified; Z86.718 Personal history of other venous thrombosis and embolism; R73.01 Impaired fasting glucose; Z87.891 Personal history of nicotine dependence; K21.9 Gastro-esophageal reflux disease without esophagitis; Z86.010 Personal history of colon polyps; I48.0 Paroxysmal atrial fibrillation; G47.33 Obstructive sleep apnea (adult) (pediatric); Z86.14 Personal history of Methicillin resistant Staphylococcus aureus infection; Z90.49 Acquired absence of other specified parts of digestive tract; Z96.653 Presence of artificial knee joint, bilateral; Z79.01 Long term (current) use of anticoagulants; Z79.899 Other long term (current) drug therapy; Z79.891 Long term (current) use of opiate analgesic; Z88.0 Allergy status to penicillin; Z88.1 Allergy status to other antibiotic agents; Z88.5 Allergy status to narcotic agent; Z88.8 Allergy status to other drugs, medicaments and biological substances

== ENCOUNTER → 2019-03-12 | Outpatient (CLI) | payer MEDICARE, MEDICAID ==
[~2019-03-12] MED LIST changes: +ISOVUE-M 200 41% 20ML VIAL (Q9966) As Ordered ONE; +LIDOCAINE 1% SDV INJ 30 ML VIAL As Ordered ONE; +MIDAZOLAM INJ 2 MG/2 ML VIAL (J2250) As Ordered ONE; +diphenhydrAMINE INJ 50MG/ML VIAL (J1200) As Ordered ONE; +fentaNYL 100 MCG/2 ML INJECTION (J3010) As Ordered ONE; +methylPREDNISolone SUSP 40 MG/ML (DEPO-medrol) VIAL (J1030) As Ordered ONE
--- NOTE | 2019-03-12 18:02 | REP ---
Partial lumbar spine series: Three views . History: Injection procedure for pain. 35 seconds of fluoroscopy time is reported. Findings: A sequence of three fluoroscopically obtained last image hold procedural spot radiographs of the lumbar spine document needle position and contrast injection associated with injection procedure. Electronically Signed by Kenton Mir MD 03/12/2019 05:54 P
--- NOTE | 2019-03-22 23:38 | ECWPNPC ---
PATIENT NAME: NISHA MUNSON : 1955 GENDER: FEMALE VISIT DATE: 03/12/2019 DISCHARGE DATE: 03/12/19 1604 VISIT LOCKED DATE TIME: PHYSICIAN: GALI LEWIS MD PHYSICIAN PAGER NO: [phone] RESOURCE: GALI LEWIS MD REASON FOR APPOINTMENT 1. LESI W/ CATH VS TRANSFORAMINAL W/ IV SEDATION HISTORY OF PRESENT ILLNESS HISTORY OF PRESENT ILLNESS: PAIN THE PATIENT DESCRIBES THE PAIN... FALL RISK SCREENING: SCREENING :NO FALLS REPORTED IN THE LAST YEAR CURRENT MEDICATIONS TAKING VITAMIN B12 1000 MCG SC . SC EVERY 8 WEEKS, NOTES: 02/13/19 TAKING PROAIR HFA 108 (90 BASE) MCG/ACT AEROSOL SOLUTION 2 PUFFS NEEDED INHALATION QID PRN, NOTES: NONE LATELY TAKING FERROUS GLUCONATE 325 MG CAPSULE 1 TABLET ORALLY TWICE DAILY, NOTES: 03/11/19 TAKING VITAMIN D 5000 TABLET 1 TABLET ORALLY TID, NOTES: 03/11/19 TAKING CALCIUM 600+D HIGH POTENCY 600-400 MG-UNIT TABLET 1 TABLET WITH FOOD ORALLY TWICE A DAY, NOTES: 03/11/19 TAKING XARELTO 20 MG TABLET 1 TAB(S) ORAL AT DINNER TIME, NOTES: SATURDAY TAKING METOPROLOL TARTRATE 25 MG TABLET 1 TABLET ORALLY DAILY AT BEDTIME, NOTES: 03/11/19 TAKING LIDODERM 5 % PATCH 1 PATCH TO SKIN REMOVE AFTER 12 HOURS EXTERNALLY APPLY 2 PATCHES TO RIGHT THORACIC REGION FOR SHINGLES - ON 12 HRS OFF 12 HRS, NOTES: NONE LATELY TAKING RECLAST 5 MG/100ML SOLUTION DIRECTED INTRAVENOUS , NOTES: 09/2018 TAKING SUCRALFATE 1 GM TABLET 1 TABLET ON AN EMPTY STOMACH ORALLY TWICE A DAY, NOTES: 03/12/19 AM TAKING TYLENOL 8 HOUR 650 MG TABLET EXTENDED RELEASE 2 TABLETS NEEDED ORALLY AKES 500 MG, NOTES: 03/12/19 AM TAKING COMPRESSION STOCKINGS 30-40 MMHG DIRECTED I87.2 DAILY TAKING LEXAPRO 10 MG TABLET 1 TABLET ORALLY ONCE A DAY, NOTES: 03/11/19 TAKING PROPAFENONE HCL 150 MG TABLET 1 TABLET ORALLY EVERY 8 HRS, NOTES: 03/12/19 0600 TAKING OXYCODONE HCL 10 MG TABLET 1 TABLET NEEDED ORALLY TID, NOTES: 03/09/19 TAKING PANTOPRAZOLE SODIUM 40 MG TABLET DELAYED RELEASE 1 TABLET ORALLY BID, NOTES: 03/12/19 AM NOT-TAKING FLECAINIDE ACETATE 50 MG TABLET 1 TAB ORAL BID NOT-TAKING LYRICA 100 MG CAPSULE 1 CAPSULE ORALLY BID MDD2, NOTES: PT NO LONGER TAKING NOT-TAKING NYSTATIN 961805 UNITS/G TOPICAL OINTMENT . APPLIED TOPICALLY DIRECTED BID X 10 DAYS C FLARES NOT-TAKING AMITRIPTYLINE HCL 25 MG TABLET 1 TABLET ORALLY BEFORE BEDTIME MEDICATION LIST REVIEWED AND RECONCILED WITH THE PATIENT PAST MEDICAL HISTORY 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 12/2008-SETTER HYPERTENSION ALLERGIC RHINITIS H/O IMMUNOTHERAPY X >10Y-STOPPED 2 INADEQUATE RESPONSE NONALCOHOLIC FATTY LIVER DISEASE C MILD CHRONIC ELEVATED ALP OBESITY, MORBID STATUS POST R-Y GASTRIC BYPASS 06/2006, 12/29/15-MARYJANE VITAMIN D DEFICIENCY ANEMIA, IRON/FE DEFICIENCY HISTORY OF RIGHT LOWER EXTREMITY DVT X2 IMPAIRED FASTING GLUCOSE HISTORY OF NICOTINE ADDICTION-SMOKED 7 CIGS QD X 10Y, QUIT AT 28 YO-04/2012 FEV1 2.3L (99%)/RATIO 108% GERD-11/2014 NORMAL EGD-REINDL TUBULAR ADENOMA BY 11/2014 COLONOSCOPY-REINDL ATRIAL FIBRILLATION, [id number] POD 2 TKR 05/2015- CONVERTED TO SR C CARDIOVERSION LISA, MODERATE-07/2017 HST JLUIS 17 C SAO2 TO 88% HO MRSA ABSCESS- HAS BEEN TREATED AND TESTED NEGATIVE LUMBAR DJD-11/2017 MRI L5/S1 BULGE EXTENDING INTO B NF DISPLACING R S1 ROOT, MILD L4/5 CCS R T5 ZOSTER RXED C VALCYC/PRED 05/2018 IMPINGEMENT AND SPURRING LEFT SHOULDER ALLERGIES PENICILLIN (FOR ALLERGIES USE ONLY): RASH - ALLERGY ERYTHROMYCIN: RASH - ALLERGY DOXYCYCLINE HYCLATE: RASH - ALLERGY TALWIN: RASH HIVES - ALLERGY NOVACAINE (PT NOTES SHE WAS OK WITH RECENT LIDOCAI: SWELLING - ALLERGY BACTRIM: RASH - ALLERGY TETRACYCLINE HCL: HIVES - ALLERGY VICODIN: ITCH - ALLERGY SINGULAIR: GERD - SIDE EFFECTS CODEINE SULFATE: UNCONSCIOUSNESS - ALLERGY GABAPENTIN: IRRITABILITY/AGGRESSIVENESS - SIDE EFFECTS LYRICA: SHAKING /FORGETFULNESS SURGICAL HISTORY I&D ABDOMEN ABSCESS 05/2010 OPEN GASTRIC BYPASS 2007 PARTIAL HYSTERECTOMY 2008 RIGHT SHOULDER SURGERY (X2) 2008 AND 2009 APPENDECTOMY AGE 9 RIGHT WRIST SURGERY X 2 1980S THROAT TUMOR AGE 16 SURGERY FOR DEVIATED SEPTUM AGE 18 AD [id number] 02/2014 R TKR- DR. HUYNH-SYRAC[place] 06/20/15 GASTRIC BYPASS REVISION-MARYJANE 12/29/15 L TKR-DR. HUYNH-SOS 01/01/17 ROBOTIC VENTRAL HERNIA REPAIR 2 SURGICAL VENTRAL HERNIA-MARYJANE 05/16/17 HAS IVC FILTER FAMILY HISTORY FATHER: 66 YRS, KIDNEY FAILURE MOTHER: 78 YRS, HTN, PACEMAKER, DIAGNOSED WITH HYPERTENSION SIBLINGS: ALIVE, DIABETES, HYPERTENSION MATERNAL GRAND FATHER: , BRAIN CANCER MATERNAL GRAND MOTHER: , COLON CARCINOMA 1 SON(S) , 2 DAUGHTER(S) . MGF AND COUSIN HAD COLON CA.\\\\NDAUGHTERS-CHRONIC BACK PAIN\\\\NSON-HAD THYROIDECTOMY--UNSURE OF DIAGNOSIS. SOCIAL HISTORY GENERAL: TOBACCO USE ARE YOU A:FORMER SMOKER HOW LONG HAS IT BEEN SINCE YOU LAST SMOKED?> 10 YEARS HIV / HEP-C SCREENING HIV TEST OFFERED TO PATIENT:YES DATE OFFERED:11/05/2017 TEST ACCEPTED:NO REASON:PATIENT DECLINED BROCHURE PROVIDED TO PATIENTYES HEP-C TEST OFFERED TO PATIENT:YES DATE OFFERED:11/22/2016 TEST ACCEPTED:NO REASON:PATIENT DECLINED EDUCATION LEVEL OF EDUCATION:NOT FINISHED COLLEGE DIET: REGULAR. LANGUAGE LANGUAGES SPOKEN:SENEGALESE DOMESTIC VIOLENCE DO YOU FEEL SAFE IN YOUR ENVIRONMENT?YES BMI CARE GOAL FOLLOW-UP ABOVE NORMAL BMI FOLLOW-UPLIFESTYLE EDUCATION REGARDING DIET RECREATIONAL DRUG USE DRUG USE?NO EXERCISE: NO REGULAR EXERCISE, SMALL WALKS. 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 NEEDED?NO PAIN CLINIC PFS, CLERGY, PUBLIC HEALTH REFERRALS PFS REFERRAL NEEDED?NO CLERGY REFERRAL NEEDED?NO PUBLIC HEALTH REFERRAL NEEDED?NO HAS THE PATIENT BEEN EDUCATED REGARDING HIS/HER PLAN OF CARE?YES HAS THE PATIENT BEEN EDUCATED REGARDING PAIN, THE RISK FOR PAIN, THE IMPORTANCE OF EFFECTIVE PAIN MANAGEMENT, AND THE PAIN ASSESSMENT PROCESS?YES LATEX QUESTIONNAIRE LATEX ALLERGY : HAVE YOU EVER DEVELOPED ANY TYPE OF REACTION AFTER HANDLING LATEX PRODUCTS SUCH RUBBER GLOVES, CONDOMS, DIAPHRAGMS, BALLOONS, SOCKS, OR UNDERWEAR?NO LATEX ALLERGY : HAVE YOU EVER DEVELOPED ANY TYPE OF REACTION DURING OR AFTER DENTAL APPOINTMENT, VAGINAL/RECTAL EXAMINATION, SURGICAL PROCEDURE, OR ANY OTHER EXPOSURE?NO LATEX RISK : HAVE YOU EVER HAD ANY DIFFICULTY BREATHING OR HIVES AFTER EATING OR HANDLING ANY FRUITS, OR VEGETABLES; SUCH KIWI, BANANAS, STONE FRUITS, OR CHESTNUTSNO LATEX RISK : DO YOU HAVE A PREVIOUS PERSONAL HISTORY OF MORE THAN NINE SURGERIES, SPINA BIFIDA, OR REPEATED CATHERIZATIONS? NO LATEX RISK : ARE YOU FREQUENTLY EXPOSED TO LATEX PRODUCTS IN YOUR OCCUPATION?NO DATE ASKED : 12/09/2018 CAFFEINE CAFFEINE USE?NO ADVANCE DIRECTIVE ADVANCE DIRECTIVE DISCUSSED WITH PATIENT:YES PT. HAS HCP, DAUGHTER DARIO PICKETT [phone], DAUGHTER DEANDRA BECKHAM [phone] HINDUISM [id number] RASTAFARIAN MARITAL STATUS: . ALCOHOL SCREENING DID YOU HAVE A DRINK CONTAINING ALCOHOL IN THE PAST YEAR?NO POINTS0 INTERPRETATIONNEGATIVE OCCUPATION: DISABLED. SEXUAL HX HAD SEX IN THE LAST 12 MONTHS (VAGINAL, ORAL, OR ANAL)?NO HAVE YOU EVER HAD AN STD?NO LMP:HYSTER REVIEWED WITH PT 04/15/18 1105 LASREVIEWED WITH PT 04/30/18 1000 LASREVIEWED WITH PATIENT 06/11/18 1042 JSREVIEWED WITH PATIENT 08/01/18 1033 JS 12/09/18 REVIEWED WITH PT. ADREVIEWED WITH PATIENT 12/31/18 1003 JS REVIEWED WITH PT 03/11/19 1324 BV. HOSPITALIZATION/MAJOR DIAGNOSTIC PROCEDURE I&D MRSA ABDOMEN ABSCESS 05/2010 ACUTE DYSPNEA/HYPOXIA ([facility] PRIOR NORMAL MEAL)-ELISA AWOKE 530 2 WANDA, THEN IMMEDIATELY CAUSED COUGH/DYSPNEA-FELT ASPIRATION PN, IN ED RECEIVED ALBUTEROL NEB X 3 THEN WENT INTO AFIB C RVR, CONVERTED IN ED C IV AMIODARONE 150 X 2, -BLE DVT US,- CXR X 2 (09/09, 09/09-09/11/14 A. FIB WITH SURGERIES SURGERIES REVIEW OF SYSTEMS REVIEWED BY: PROVIDER: . CONSTITUTIONAL: ANY CHANGE IN YOUR MEDICAL CONDITION? NO . CHILLS NO . FEVER NO . INFECTION: DO YOU HAVE NEW INFECTIONS? NO . DO YOU HAVE HISTORY OF MRSA? NO . MUSCULOSKELETAL: ANY NEW PATTERNS OF PAIN OR NUMBNESS? NO . GASTROENTEROLOGY: ANY NEW CHANGE IN BOWEL CONTROL? NO . GENITOURINARY: ANY NEW CHANGE IN BLADDER CONTROL? NO . IS THERE A CHANCE YOU COULD BE ? NO . HEMATOLOGY/LYMPH: DO YOU TAKE ANY BLOOD THINNERS? (FOR EXAMPLE- COUMADIN, PLAVIX, AGGRENOX, PLATEL, PRADAXA, OR XARELTO) YES, XARELTO 03/08/19 . WHEN WAS YOUR LAST DOSE? DATE: TIME: . NEUROLOGY: HAVE YOU FALLEN IN THE PAST 12 MONTHS? NO . ANY NEW EXTREMITY NUMBNESS OR WEAKNESS? NO . CARDIOLOGY: DO YOU HAVE A PACEMAKER OR DEFIBRILLATOR? NO . RESPIRATORY: HAVE YOU BEEN SICK IN THE PAST WEEK? NO . FEVER NO . FLU LIKE SYMPTOMS? NO . COUGH NO . INTEGUMENTARY: DO YOU HAVE ANY RASHES OR OPEN SORES? NO . ALLERGIC/IMMUNO: ARE YOU ALLERGIC TO IV DYE? NO . ANY NEW ALLERGIES? NO . PSYCHIATRIC: DO YOU HAVE THOUGHTS OF HURTING YOURSELF OR SOMEONE ELSE? NO . ARE YOU ABUSED, NEGLECTED, OR IN AN UNSAFE ENVIRONMENT? NO . ENDOCRINOLOGY: ARE YOU DIABETIC? NO . OTHER: DO YOU NEED ANY PRESCRIPTIONS? NO . IF YES, PLEASE LIST: ____ . ANY NEW PROBLEMS WITH YOUR MEDICATIONS? NO . WHEN DID YOU LAST EAT? 03/11/19 2200 . WHEN DID YOU LAST DRINK? 03/12/19 1100 . WHAT DID YOU LAST DRINK? SEVEN UP . NAME OF PERSON DRIVING YOU HOME? DARIO . DO YOU HAVE ANY OTHER QUESTIONS OR CONCERNS NO . VITAL SIGNS WT 265.2 LBS, HT 63 IN, BMI 46.97 INDEX, BP 166/70 MM HG, HR 61 /MIN, RR 18 /MIN, TEMP 96.7 F, OXYGEN SAT % 97%, NA INITIALS AW 1300, REVIEWED BY: EM. ASSESSMENTS INTERVERTEBRAL DISC DISORDER WITH RADICULOPATHY OF LUMBOSACRAL REGION - M51.17 (PRIMARY) LUMBOSACRAL SPINAL STENOSIS - M48.07 PROCEDURES PRE PROCEDURE DIAGNOSIS LUMBOSACRAL DISC DISORDER WITH RADICULOPATHY, LUMBOSACRAL SPINAL STENOSIS POST PROCEDURE DIAGNOSIS LUMBOSACRAL DISC DISORDER WITH RADICULOPATHY , LUMBOSACRAL SPINAL STENOSIS PROCEDURE LUMBAR EPIDURAL STEROID INJECTION UNDER FLUOROSCOPIC GUIDANCE SURGEON DR. GALI LEWIS BUNDLER SEASONAL GREENERY NONE ANESTHESIA LOCAL WITH IV SEDATION PRE PROCEDURE NOTE THE PATIENT HAS A HISTORY OF CHRONIC LOW BACK PAIN. I EVALUATE THE PATIENT AND REVIEWED THE CHART. I WENT OVER THE RISKS, ALTERNATIVES, AND BENEFITS ASSOCIATED WITH THIS PROCEDURE. THE PATIENT WOULD LIKE TO PROCEED AND GIVE CONSENT TO PERFORMED THE PROCEDURE. PATIENT WOULD LIKE TO MOVE FORWARD WITH IV SEDATION DUE TO DISCOMFORT, PAIN AND ANXIETY ASSOCIATED WITH THE PROCEDURE. THE PATIENT DENIES UNEXPLAINABLE WEIGHT LOSS, FEVER, CHILLS, OR NEW CHANGES IN URINARY OR BOWEL CONTROL. DESCRIPTION OF PROCEDURE THE PATIENT WAS BROUGHT TO THE PROCEDURE ROOM AND PLACED IN THE PRONE POSITION. THE LUMBOSACRAL AREA WAS CLEANED WITH BETADINE SOLUTION AND DRAPED ASEPTICALLY. THE PROCEDURE WAS DONE UNDER STERILE CONDITIONS. I CHECKED LATERALITY AND THE LEVEL WHERE THE PROCEDURE WAS GOING TO BE PERFORMED WITH THE PATIENT AND THE SUPPORTING STAFF AT THE MOMENT OF THE TIME OUT IN THE PROCEDURE ROOM. UNDER FLUOROSCOPIC GUIDANCE, THE TARGET POINT WAS SELECTED AT THE INTERLAMINAR LEVEL OF L5-S1. LIDOCAINE WAS USED TO NUMB THE SKIN AND THE SUBCUTANEOUS TISSUE BELOW IT. EPIDURAL TUOHY NEEDLE, 16-GAUGE, WAS ADVANCED UNDER FLUOROSCOPIC GUIDANCE AND FOLLOWING PATIENT FEEDBACK UNTIL THE EPIDURAL SPACE WAS REACHED, 7 CM DEEP INTO THE SKIN BY THE LOSS OF RESISTANCE TECHNIQUE. I ADVANCED A 19-GAUGE EPIMED CATHETER TO LEFT OF L4-L5. ISOVUE M-200 DYE, WAS INJECTED SHOWING ADEQUATE SPREAD OF THE DYE. THEN, A SOLUTION OF 3 ML OF NORMAL SALINE WITH DEPO-MEDROL 60 MG WAS INJECTED SLOWLY FOLLOWING PATIENT FEEDBACK. PATIENT RECEIVED VERSED 2 MG AND FENTANYL 300 MCG IV DIVIDED DOSES. THERE WAS NO EVIDENCE OF BLOOD, PARESTHESIA OR CEREBROSPINAL FLUID DURING THE PROCEDURE. THE PATIENT WAS SENT TO THE RECOVERY ROOM. THE PATIENT WAS MOVING THE EXTREMITIES AND DOING WELL. THERE WAS NO COMPLICATION DURING THE PROCEDURE. FLUOROSCOPY TIME WAS 35 SECONDS. FACE TO FACE TIME WAS 33 MINUTES. POST PROCEDURE NOTE THE PATIENT WILL BE SEEN IN A FOLLOW UP IN THE NEXT FEW WEEKS. INSTRUCTIONS WERE GIVEN, QUESTIONS WERE ANSWERED, AND THE PATIENT EXPRESSED UNDERSTANDING AND AGREES WITH THE PLAN. I, SAIDA CASTELLANOS, DOCUMENTED THE ABOVE INFORMATION ACTING A SCRIBE FOR DR. LEWIS. I HAVE REVIEWED THE ABOVE DOCUMENT, WRITTEN BY SAIDA CASTELLANOS SCRIBDylon AND I VERIFY THAT IT IS ACCURATE. DIAGNOSTIC IMAGING [facility] FLUORO GUIDE SPINE INJECTION (PAIN)[id number] PROCEDURE CODES 6045F RADXPS IN END [id number] PXD 99361 LUMBAR/SACRAL W/ IMAGING 76340 MOD SED SAME PHYS/QHP 5/>YRS 17448 MOD SED SAME PHYS/QHP EA DISPOSITION & COMMUNICATION FOLLOW UP 2 WEEKS ELECTRONICALLY SIGNED BY GALI LEWIS MD, MD ON 03/22/2019 AT 01:26 PM EDT DISCLAIMER : THIS IS A VISIT SUMMARY EXTRACTED FROM THE [employer] CHART. IT IS NOT A COPY OF THE [employer] PROGRESS NOTE. VINCENT
== END ==
LOC: M PAIN 13:00
PROVIDERS: ATTEND Anesthesiology
DX: M51.17 Intervertebral disc disorders with radiculopathy, lumbosacral region (principal); M48.07 Spinal stenosis, lumbosacral region; I10 Essential (primary) hypertension; K76.0 Fatty (change of) liver, not elsewhere classified; E66.01 Morbid (severe) obesity due to excess calories; Z98.84 Bariatric surgery status; E55.9 Vitamin D deficiency, unspecified; D50.9 Iron deficiency anemia, unspecified; R73.01 Impaired fasting glucose; K21.9 Gastro-esophageal reflux disease without esophagitis; I48.0 Paroxysmal atrial fibrillation; M51.36 Other intervertebral disc degeneration, lumbar region; Z86.718 Personal history of other venous thrombosis and embolism; Z90.49 Acquired absence of other specified parts of digestive tract; Z98.49 Cataract extraction status, unspecified eye; Z87.891 Personal history of nicotine dependence; Z79.01 Long term (current) use of anticoagulants; Z79.891 Long term (current) use of opiate analgesic; Z79.899 Other long term (current) drug therapy; Z88.0 Allergy status to penicillin; Z88.1 Allergy status to other antibiotic agents; Z88.2 Allergy status to sulfonamides; Z88.5 Allergy status to narcotic agent; Z88.8 Allergy status to other drugs, medicaments and biological substances; Z86.14 Personal history of Methicillin resistant Staphylococcus aureus infection
CPT/HCPCS: 62323; 99152; 99153; J1030; J1200; J2250; J3010; Q9966

== ENCOUNTER → 2019-04-09 | Outpatient (REF) | payer MEDICARE, MEDICAID ==
[~2019-04-09] MED LIST changes: +CYAN500T9 PO; -ISOVUE-M 200 41% 20ML VIAL (Q9966) As Ordered ONE; -LIDOCAINE 1% SDV INJ 30 ML VIAL As Ordered ONE; -MIDAZOLAM INJ 2 MG/2 ML VIAL (J2250) As Ordered ONE; -VITA-193 PO; -diphenhydrAMINE INJ 50MG/ML VIAL (J1200) As Ordered ONE; -fentaNYL 100 MCG/2 ML INJECTION (J3010) As Ordered ONE; -methylPREDNISolone SUSP 40 MG/ML (DEPO-medrol) VIAL (J1030) As Ordered ONE
[2019-04-09 12:35] LABS: BASO # 0.1 10^3/uL (0.0-0.2); BASO % 0.7 % (0.0-1.0); EOS # 0.2 10^3/uL (0.0-0.50); EOS % 2.8 % (0.0-3.0); HEMATOCRIT 40.2 % (36.0-47.0); HEMOGLOBIN 11.9 g/dl (12.0-15.5); LYMPH # 1.8 10^3/uL (1.5-4.5); LYMPH % 24.8 % (24.0-44.0); MEAN CORPUSCULAR HEMOGLOBIN 27.1 pg (27.0-33.0); MEAN CORPUSCULAR HGB CONC 29.6 g/dl (32.0-36.5); MEAN CORPUSCULAR VOLUME 91.6 fl (80.0-96.0); MONO # 0.4 10^3/uL (0.0-0.8); MONO % 6.1 % (0.0-5.0); NEUTROPHILS # 4.6 10^3/uL (1.8-7.7); NEUTROPHILS % 65.5 % (36.0-66.0); PLATELET COUNT, AUTOMATED 346 10^3/uL (150-450); RED BLOOD COUNT 4.39 10^6/uL (4.00-5.40); WHITE BLOOD COUNT 7.1 10^3/uL (4.0-10.0)
[2019-04-09 12:36] LABS: AMORPHOUS SEDIMENT SMALL (NEGATIVE); APPEARANCE, URINE HAZY (CLEAR); BACTERIA, URINE AUTO NEGATIVE (NEGATIVE); BILIRUBIN, URINE AUTO NEGATIVE (NEGATIVE); BLOOD, URINE BLOOD NEGATIVE (NEGATIVE); COLOR, URINE YELLOW (YELLOW); GLUCOSE, URINE (UA) AUTO NEGATIVE (NEGATIVE); KETONE, URINE AUTO NEGATIVE (NEGATIVE); LEUKOCYTE ESTERASE, URINE AUTO NEGATIVE (NEGATIVE); MUCUS, URINE SMALL (NEGATIVE); NITRITE, URINE AUTO NEGATIVE (NEGATIVE); PROTEIN, URINE AUTO NEGATIVE (NEGATIVE); RBC, URINE AUTO 3 /HPF (0-3); SPECIFIC GRAVITY URINE AUTO 1.025 (1.002-1.035); SQUAMOUS EPITHELIAL CELL UR AU 3 /HPF (0-6); UROBILINOGEN, URINE AUTO 0.2 mg/dL (0.0-2.0); WBC, URINE AUTO 1 /HPF (0-3)
[2019-04-09 13:12] LABS: ALBUMIN 3.5 GM/DL (3.2-5.2); ALT/SGPT 15 U/L (12-78); BILIRUBIN,TOTAL 0.3 MG/DL (0.2-1.0); BLOOD UREA NITROGEN 16 MG/DL (7-18); CALCIUM LEVEL 8.7 MG/DL (8.8-10.2); CARBON DIOXIDE LEVEL 27 MEQ/L (21-32); CHLORIDE LEVEL 110 MEQ/L (98-107); CREATININE FOR GFR 0.69 MG/DL (0.55-1.30); GLOMERULAR FILTRATION RATE > 60.0 (>45); GLUCOSE, FASTING 85 MG/DL (70-100); POTASSIUM SERUM 4.1 MEQ/L (3.5-5.1); SODIUM LEVEL 145 MEQ/L (136-145); TOTAL PROTEIN 6.8 GM/DL (6.4-8.2)
[2019-04-09 13:21] LABS: MALB URINE SIEMENS 13.6 MG/L; MAU/CREAT RATIO 6.4 MCG/MG (0.0-30.0)
[2019-04-09 14:06] LABS: HEMOGLOBIN A1c 6.2 %
[2019-04-09 16:41] LABS: VITAMIN B12 LEVEL 449 PG/ML (247-911)
== END ==
LOC: M SFHCPLAZ 10:11
PROVIDERS: ATTEND Family Medicine
DX: R73.01 Impaired fasting glucose (principal); D51.9 Vitamin B12 deficiency anemia, unspecified
CPT/HCPCS: 36415; 80053; 81001; 82043; 82607; 83036; 83525; 85025; 96372; G0463; J3420

== ENCOUNTER → 2019-04-23 | Outpatient (CLI) | payer MEDICARE, MEDICAID | LOC: M PAIN 10:00 | PROVIDERS: ATTEND Nurse Practitioner Family | DX: M46.96 Unspecified inflammatory spondylopathy, lumbar region (principal); G62.9 Polyneuropathy, unspecified; I10 Essential (primary) hypertension; E55.9 Vitamin D deficiency, unspecified; D50.9 Iron deficiency anemia, unspecified; R73.01 Impaired fasting glucose; K21.9 Gastro-esophageal reflux disease without esophagitis; Z98.84 Bariatric surgery status; Z87.891 Personal history of nicotine dependence; Z88.0 Allergy status to penicillin; Z88.1 Allergy status to other antibiotic agents; Z88.4 Allergy status to anesthetic agent; Z88.5 Allergy status to narcotic agent; Z88.8 Allergy status to other drugs, medicaments and biological substances; Z79.01 Long term (current) use of anticoagulants; E66.01 Morbid (severe) obesity due to excess calories; Z68.42 Body mass index [BMI] 45.0-49.9, adult; Z79.899 Other long term (current) drug therapy ==

== ENCOUNTER → 2019-05-04 | Outpatient (CLI) | payer MEDICARE, MEDICAID ==
[2019-05-04 13:57] LABS: CALCIUM LEVEL 9.4 MG/DL (8.8-10.2); CREATININE FOR GFR 1.04 MG/DL (0.55-1.30); GLOMERULAR FILTRATION RATE 56.8 (>45); POTASSIUM SERUM 4.5 MEQ/L (3.5-5.1)
== END ==
LOC: M LAB 12:53
PROVIDERS: ATTEND Internal Medicine Cardiovascular Disease
DX: I48.0 Paroxysmal atrial fibrillation (principal)

== ENCOUNTER → 2019-05-13 | Outpatient (CLI) | payer MEDICARE, MEDICAID ==
[2019-05-13 11:45] LABS: HEMATOCRIT 35.9 % (36.0-47.0); HEMOGLOBIN 11.1 g/dl (12.0-15.5); MEAN CORPUSCULAR HEMOGLOBIN 27.3 pg (27.0-33.0); MEAN CORPUSCULAR HGB CONC 30.9 g/dl (32.0-36.5); MEAN CORPUSCULAR VOLUME 88.4 fl (80.0-96.0); PLATELET COUNT, AUTOMATED 310 10^3/uL (150-450); RED BLOOD COUNT 4.06 10^6/uL (4.00-5.40); WHITE BLOOD COUNT 6.7 10^3/uL (4.0-10.0)
[2019-05-13 12:31] LABS: BLOOD UREA NITROGEN 19 MG/DL (7-18); CALCIUM LEVEL 8.9 MG/DL (8.8-10.2); CARBON DIOXIDE LEVEL 26 MEQ/L (21-32); CHLORIDE LEVEL 108 MEQ/L (98-107); GLOMERULAR FILTRATION RATE > 60.0 (>45); GLUCOSE, FASTING 87 MG/DL (70-100); POTASSIUM SERUM 4.3 MEQ/L (3.5-5.1); SODIUM LEVEL 141 MEQ/L (136-145)
== END ==
LOC: M LAB 10:48
PROVIDERS: ATTEND Internal Medicine Cardiovascular Disease
DX: I48.0 Paroxysmal atrial fibrillation (principal)

== ENCOUNTER 2019-06-24 12:30 | Outpatient (CLI) | payer MEDICARE, MEDICAID ==
[~2019-06-24] VITALS: Ht 160 cm; Wt 120.0 kg
[2019-06-24 12:40] VITALS: BP 140/66
[2019-06-24] MEDS ORDERED: ZOLEDRONIC ACID 5 MG in IV 1 EA IV ONE (13:00)
[2019-06-24 13:50] VITALS: BP 127/54
[2019-06-24 14:25] VITALS: BP 129/58
== END 2019-06-24 14:25 | disposition home or self-care (01) ==
LOC: M INFU 12:30
PROVIDERS: ATTEND Family Medicine
DX: M85.80 Other specified disorders of bone density and structure, unspecified site (principal); Z88.0 Allergy status to penicillin; Z88.1 Allergy status to other antibiotic agents; Z88.5 Allergy status to narcotic agent; Z88.8 Allergy status to other drugs, medicaments and biological substances
CPT/HCPCS: 96365; J3489

== ENCOUNTER → 2019-07-02 | Outpatient (CLI) | payer MEDICARE, MEDICAID ==
--- NOTE | 2019-07-02 09:46 | REP ---
BILATERAL SCREENING DIGITAL MAMMOGRAM WITH 3D TOMOSYNTHESIS: There are no palpable abnormalities or other breast complaints. The the patient states she had a clinical breast examination in April,. The the patient states she performs self-breast examinations 12 times per year. The Tyrer-Cuzick Score is: 6.5% . Comparison is 09/04/2013. There are scattered areas of fibroglandular density. There is no dominant mass, micro calcific cluster or architectural distortion that would indicate malignancy. There are stable benign calcifications, unchanged. There are no additional findings on 3D tomosynthesiss. There is no change from the prior study. Impression: BIRADS/ACR category 2 mammogram. Benign findings. Recommendation: Routine annual screening mammography. This mammogram was interpreted with the aid of a FDA approved computer-aided detection system. A. Negative mammogram reports should not delay biopsy if a dominant or clinically suspicious mass is present. B. Not all breast cancers are identified by mammography or tomosynthesis. C. Adenosis and dense breasts may obscure an underlying neoplasm. Patient letter M1. Electronically Signed by Samson Lewis MD 07/02/2019 09:37 A
== END ==
LOC: M WHC 08:10
PROVIDERS: ATTEND Family Medicine
DX: Z12.31 Encounter for screening mammogram for malignant neoplasm of breast (principal)

== ENCOUNTER → 2019-07-17 | Outpatient (CLI) | payer MEDICARE, MEDICAID ==
--- NOTE | 2019-08-05 05:13 | ECWPNPC ---
PATIENT NAME: NISHA MUNSON : 1955 GENDER: FEMALE VISIT DATE: 07/17/2019 DISCHARGE DATE: 07/17/19 1000 VISIT LOCKED DATE TIME: PHYSICIAN: VIOLETA TITUS PHYSICIAN PAGER NO: [phone] RESOURCE: VIOLETA TITUS REASON FOR APPOINTMENT 1. LOWER BACK HISTORY OF PRESENT ILLNESS HISTORY OF PRESENT ILLNESS: HERE FOR F/U OF CHRONIC LBP AND LEFT LEG PAIN.RATING PAIN VAS 4-10/10 .REVIEWED MRI L/S SPINE AND DISCUSSED TREATMENT OPTIONS. PAIN THE PATIENT DESCRIBES THE PAIN... FALL RISK SCREENING: SCREENING :NO FALLS REPORTED IN THE LAST YEAR CURRENT MEDICATIONS TAKING VITAMIN B12 1000 MCG SC . SC EVERY 8 WEEKS TAKING PROAIR HFA 108 (90 BASE) MCG/ACT AEROSOL SOLUTION 2 PUFFS NEEDED INHALATION QID PRN TAKING FERROUS GLUCONATE 325 MG CAPSULE 1 TABLET ORALLY TWICE DAILY TAKING VITAMIN D 5000 TABLET 1 TABLET ORALLY TID TAKING CALCIUM 600+D HIGH POTENCY 600-400 MG-UNIT TABLET 1 TABLET WITH FOOD ORALLY TWICE A DAY TAKING NYSTATIN 440263 UNITS/G TOPICAL OINTMENT . APPLIED TOPICALLY DIRECTED BID X 10 DAYS C FLARES TAKING XARELTO 20 MG TABLET 1 TAB(S) ORAL AT DINNER TIME TAKING RECLAST 5 MG/100ML SOLUTION DIRECTED INTRAVENOUS TAKING COMPRESSION STOCKINGS 30-40 MMHG KNEE HIGH I87.2 DAILY TAKING SUCRALFATE 1 GM TABLET 1 TABLET ON AN EMPTY STOMACH ORALLY TWICE A DAY TAKING TYLENOL 8 HOUR 650 MG TABLET EXTENDED RELEASE 2 TABLETS NEEDED ORALLY AKES 500 MG TAKING PANTOPRAZOLE SODIUM 40 TABLET DELAYED RELEASE 1 TABLET ORALLY BID TAKING OXYCODONE-ACETAMINOPHEN 10-325 MG TABLET 1 TABLET NEEDED ORALLY EVERY 8 HRS TAKING TIZANIDINE HCL 4 MG CAPSULE 1 CAPSULE NEEDED ORALLY THREE TIMES A DAY NOT-TAKING METOPROLOL TARTRATE 25 MG TABLET 1/2 TABLET ORALLY DAILY AT BEDTIME NOT-TAKING PANTOPRAZOLE SODIUM 40 MG TABLET DELAYED RELEASE 1 TABLET ORALLY BID, NOTES: DUPLICATE NOT-TAKING LEXAPRO 10 MG TABLET 1 TABLET ORALLY ONCE A DAY NOT-TAKING PROPAFENONE HCL 150 MG TABLET 1 TABLET ORALLY EVERY 8 HRS NOT-TAKING OXYCODONE HCL 10 MG TABLET 1 TABLET NEEDED ORALLY TID NOT-TAKING OXYCODONE HCL 10 MG TABLET 1 TABLET NEEDED ORALLY 3 TIMES A DAY NOT-TAKING LIDODERM 5 % PATCH 1 PATCH TO SKIN REMOVE AFTER 12 HOURS EXTERNALLY APPLY 2 PATCHES TO RIGHT THORACIC REGION FOR SHINGLES - ON 12 HRS OFF 12 HRS NOT-TAKING DICLOFENAC SODIUM 1 % GEL 4 GM TRANSDERMAL FOUR TIMES A DAY TO B KNEES MEDICATION LIST REVIEWED AND RECONCILED WITH THE PATIENT PAST MEDICAL HISTORY 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 12/2008-SETTER HYPERTENSION ALLERGIC RHINITIS H/O IMMUNOTHERAPY X >10Y-STOPPED 2 INADEQUATE RESPONSE NONALCOHOLIC FATTY LIVER DISEASE C MILD CHRONIC ELEVATED ALP OBESITY, MORBID STATUS POST R-Y GASTRIC BYPASS 06/2006, 12/29/15-MARYJANE VITAMIN D DEFICIENCY ANEMIA, IRON/FE DEFICIENCY HISTORY OF RIGHT LOWER EXTREMITY DVT X2 IMPAIRED FASTING GLUCOSE HISTORY OF NICOTINE ADDICTION-SMOKED 7 CIGS QD X 10Y, QUIT AT 28 YO-04/2012 FEV1 2.3L (99%)/RATIO 108% GERD-11/2014 NORMAL EGD-REINDL TUBULAR ADENOMA BY 11/2014 COLONOSCOPY-REINDL ATRIAL FIBRILLATION, [id number] POD 2 TKR 05/2015- CONVERTED TO SR C CARDIOVERSION LISA, MODERATE-07/2017 HST JLUIS 17 C SAO2 TO 88% HO MRSA ABSCESS- HAS BEEN TREATED AND TESTED NEGATIVE LUMBAR DJD-11/2017 MRI L5/S1 BULGE EXTENDING INTO B NF DISPLACING R S1 ROOT, MILD L4/5 CCS R T5 ZOSTER RXED C VALCYC/PRED 05/2018 IMPINGEMENT AND SPURRING LEFT SHOULDER ALLERGIES PENICILLIN (FOR ALLERGIES USE ONLY): RASH - ALLERGY ERYTHROMYCIN: RASH - ALLERGY DOXYCYCLINE HYCLATE: RASH - ALLERGY TALWIN: RASH HIVES - ALLERGY NOVACAINE (PT NOTES SHE WAS OK WITH RECENT LIDOCAI: SWELLING - ALLERGY BACTRIM: RASH - ALLERGY TETRACYCLINE HCL: HIVES - ALLERGY VICODIN: ITCH - ALLERGY SINGULAIR: GERD - SIDE EFFECTS CODEINE SULFATE: UNCONSCIOUSNESS - ALLERGY GABAPENTIN: IRRITABILITY/AGGRESSIVENESS - SIDE EFFECTS LYRICA: SHAKING /FORGETFULNESS SURGICAL HISTORY I&D ABDOMEN ABSCESS 05/2010 OPEN GASTRIC BYPASS 2007 PARTIAL HYSTERECTOMY 2008 RIGHT SHOULDER SURGERY (X2) 2007 AND 2008 APPENDECTOMY AGE 9 RIGHT WRIST SURGERY X 2 1980S THROAT TUMOR AGE 16 SURGERY FOR DEVIATED SEPTUM AGE 18 AD [id number] 02/2014 R TKR- DR. HUYNH-[place]AC[place] 06/20/15 GASTRIC BYPASS REVISION-MARYJANE 12/29/15 L TKR-DR. HUYNH-SOS 01/01/17 ROBOTIC VENTRAL HERNIA REPAIR 2 SURGICAL VENTRAL HERNIA-MARYJANE 05/16/17 HAS IVC FILTER IMPLANTED CARDIAC MONTIOR 06/03/19 FAMILY HISTORY FATHER: 66 YRS, KIDNEY FAILURE MOTHER: 78 YRS, HTN, PACEMAKER, DIAGNOSED WITH HYPERTENSION SIBLINGS: ALIVE, DIABETES, HYPERTENSION MATERNAL GRAND FATHER: , BRAIN CANCER MATERNAL GRAND MOTHER: , COLON CARCINOMA 1 SON(S) , 2 DAUGHTER(S) . MGF AND COUSIN HAD COLON CA.\\\\NDAUGHTERS-CHRONIC BACK PAIN\\\\NSON-HAD THYROIDECTOMY--UNSURE OF DIAGNOSIS. SOCIAL HISTORY GENERAL: TOBACCO USE ARE YOU A:FORMER SMOKER HOW LONG HAS IT BEEN SINCE YOU LAST SMOKED?> 10 YEARS HIV / HEP-C SCREENING HIV TEST OFFERED TO PATIENT:YES DATE OFFERED:11/05/2017 TEST ACCEPTED:NO HEP-C TEST OFFERED TO PATIENT:YES DATE OFFERED:11/22/2016 REASON:PATIENT DECLINED TEST ACCEPTED:NO REASON:PATIENT DECLINED BROCHURE PROVIDED TO PATIENTYES EDUCATION LEVEL OF EDUCATION:NOT FINISHED COLLEGE DIET: REGULAR. LANGUAGE LANGUAGES SPOKEN:PORTUGUESE DOMESTIC VIOLENCE DO YOU FEEL SAFE IN YOUR ENVIRONMENT?YES BMI CARE GOAL FOLLOW-UP ABOVE NORMAL BMI FOLLOW-UPLIFESTYLE EDUCATION REGARDING DIET RECREATIONAL DRUG USE DRUG USE?NO EXERCISE: NO REGULAR EXERCISE, SMALL WALKS. LEARNING BARRIERS / SPECIAL NEEDS CHANGE FROM LAST VISIT?NO BARRIERS TO LEARNING?NO HEARING IMPAIRED?NO VISION IMPAIRED?YES COGNITIVELY IMPAIRED?NO :CORRECTIVE LENSES READINESS TO LEARN?YES LEARNING PREFERENCES?NO LEARNING CAPABILITIES PRESENT?YES EMOTIONAL BARRIERS?NO SPECIAL DEVICES?YES :CANE, WALKER, OTHER WALKING CANE SEO EXECUTIVE NEEDED?NO PAIN CLINIC PFS, CLERGY, PUBLIC HEALTH REFERRALS PFS REFERRAL NEEDED?NO CLERGY REFERRAL NEEDED?NO PUBLIC HEALTH REFERRAL NEEDED?NO HAS THE PATIENT BEEN EDUCATED REGARDING HIS/HER PLAN OF CARE?YES HAS THE PATIENT BEEN EDUCATED REGARDING PAIN, THE RISK FOR PAIN, THE IMPORTANCE OF EFFECTIVE PAIN MANAGEMENT, AND THE PAIN ASSESSMENT PROCESS?YES LATEX QUESTIONNAIRE LATEX ALLERGY : HAVE YOU EVER DEVELOPED ANY TYPE OF REACTION AFTER HANDLING LATEX PRODUCTS SUCH RUBBER GLOVES, CONDOMS, DIAPHRAGMS, BALLOONS, SOCKS, OR UNDERWEAR?NO LATEX ALLERGY : HAVE YOU EVER DEVELOPED ANY TYPE OF REACTION DURING OR AFTER DENTAL APPOINTMENT, VAGINAL/RECTAL EXAMINATION, SURGICAL PROCEDURE, OR ANY OTHER EXPOSURE?NO LATEX RISK : HAVE YOU EVER HAD ANY DIFFICULTY BREATHING OR HIVES AFTER EATING OR HANDLING ANY FRUITS, OR VEGETABLES; SUCH KIWI, BANANAS, STONE FRUITS, OR CHESTNUTSNO LATEX RISK : DO YOU HAVE A PREVIOUS PERSONAL HISTORY OF MORE THAN NINE SURGERIES, SPINA BIFIDA, OR REPEATED CATHERIZATIONS? NO LATEX RISK : ARE YOU FREQUENTLY EXPOSED TO LATEX PRODUCTS IN YOUR OCCUPATION?NO DATE ASKED : 12/09/2018 CAFFEINE CAFFEINE USE?NO ADVANCE DIRECTIVE ADVANCE DIRECTIVE DISCUSSED WITH PATIENT:YES PT. HAS HCP, DAUGHTER DARIO PICKETT [phone], DAUGHTER DEANDRA BECKHAM [phone] MU-ISM [id number] ZOROASTRIANISM MARITAL STATUS: . ALCOHOL SCREENING DID YOU HAVE A DRINK CONTAINING ALCOHOL IN THE PAST YEAR?NO POINTS0 INTERPRETATIONNEGATIVE OCCUPATION: DISABLED. SEXUAL HX HAD SEX IN THE LAST 12 MONTHS (VAGINAL, ORAL, OR ANAL)?NO LMP:HYSTER HAVE YOU EVER HAD AN STD?NO REVIEWED WITH PT 04/15/18 1105 LASREVIEWED WITH PT 04/30/18 1000 LASREVIEWED WITH PATIENT 06/11/18 1042 JSREVIEWED WITH PATIENT 08/01/18 1033 JS 12/09/18 REVIEWED WITH PT. ADREVIEWED WITH PATIENT 12/31/18 1003 JS REVIEWED WITH PT 03/11/19 1324 BV REVIEWED WITH PATIENT 07/17/19 0921 JS. HOSPITALIZATION/MAJOR DIAGNOSTIC PROCEDURE I&D MRSA ABDOMEN ABSCESS 05/2010 ACUTE DYSPNEA/HYPOXIA ([facility] PRIOR NORMAL MEAL)-ELISA AWOKE 530 2 WANDA, THEN IMMEDIATELY CAUSED COUGH/DYSPNEA-FELT ASPIRATION PN, IN ED RECEIVED ALBUTEROL NEB X 3 THEN WENT INTO AFIB C RVR, CONVERTED IN ED C IV AMIODARONE 150 X 2, -BLE DVT US,- CXR X 2 (09/09, 09/09-09/11/14 A. FIB WITH SURGERIES SURGERIES REVIEW OF SYSTEMS REVIEWED BY: PROVIDER: VIOLETA CRAWFORD . CONSTITUTIONAL: ANY CHANGE IN YOUR MEDICAL CONDITION? NO . CHILLS NO . FEVER NO . INFECTION: DO YOU HAVE NEW INFECTIONS? NO . DO YOU HAVE HISTORY OF MRSA? NO . MUSCULOSKELETAL: ANY NEW PATTERNS OF PAIN OR NUMBNESS? YES, STATES BACK PAIN INCREASING SIGNIFICANTLY AND STATES THE ELECTRICAL SHOCKS ARE STARTING TO MOVE UP THE LEG . GASTROENTEROLOGY: ANY NEW CHANGE IN BOWEL CONTROL? NO . GENITOURINARY: ANY NEW CHANGE IN BLADDER CONTROL? NO . IS THERE A CHANCE YOU COULD BE ? NO . HEMATOLOGY/LYMPH: DO YOU TAKE ANY BLOOD THINNERS? (FOR EXAMPLE- COUMADIN, PLAVIX, AGGRENOX, PLATEL, PRADAXA, OR XARELTO) YES, XARELTO . WHEN WAS YOUR LAST DOSE? DATE: 07/16/19TIME: 1800 . NEUROLOGY: HAVE YOU FALLEN IN THE PAST 12 MONTHS? NO . ANY NEW EXTREMITY NUMBNESS OR WEAKNESS? NO . CARDIOLOGY: DO YOU HAVE A PACEMAKER OR DEFIBRILLATOR? PATIENT HAS IMPLANTED CHILDREN'S MINISTRY DIRECTOR . RESPIRATORY: HAVE YOU BEEN SICK IN THE PAST WEEK? NO . FEVER NO . FLU LIKE SYMPTOMS? NO . COUGH NO . INTEGUMENTARY: DO YOU HAVE ANY RASHES OR OPEN SORES? NO . ALLERGIC/IMMUNO: ARE YOU ALLERGIC TO IV DYE? NO . ANY NEW ALLERGIES? NO . PSYCHIATRIC: DO YOU HAVE THOUGHTS OF HURTING YOURSELF OR SOMEONE ELSE? NO . ARE YOU ABUSED, NEGLECTED, OR IN AN UNSAFE ENVIRONMENT? NO . ENDOCRINOLOGY: ARE YOU DIABETIC? NO . OTHER: DO YOU NEED ANY PRESCRIPTIONS? NO . IF YES, PLEASE LIST: ____ . ANY NEW PROBLEMS WITH YOUR MEDICATIONS? NO . WHEN DID YOU LAST EAT? ____ . WHEN DID YOU LAST DRINK? ____ . WHAT DID YOU LAST DRINK? ____ . NAME OF PERSON DRIVING YOU HOME? ____ . DO YOU HAVE ANY OTHER QUESTIONS OR CONCERNS NO . VITAL SIGNS WT 263.0 LBS, HT 63 IN, BMI 46.58 INDEX, BP 184/81 MM HG, REPEAT BP 138/82 MANUAL, HR 84 /MIN, RR 18 /MIN, TEMP 97.2 F, OXYGEN SAT % 98%, SAFE IN ENV? (Y/N) YES, NA INITIALS AW 0900, REVIEWED BY: KULDIP. EXAMINATION GENERAL EXAMINATION: GENERAL AWAKE,ALERT ,PLEAASANT . PSYCH AFFECT NORMAL . LUNGS: LUNG DAVID ARE CLEAR TO AUSCULTATION BILATERALLY. GOOD MOVEMENT OF AIR . HEART: S1, S2 IN A REGULAR RATE AND RHYTHM. NO SIGNIFICANT MURMURS, RUBS OR GALLOPS NOTED . FOR BILAT. SIJ PALPATION:TENDER OVER BILAT. L4/5-L5/S1 LUMBAR FACETS WITH FACET LOADING.. DIAGNOSTIC TESTS REVIEWED MRI -12/17/17--L/S SPINE. ASSESSMENTS INTERVERTEBRAL DISC DISORDER WITH RADICULOPATHY OF LUMBAR REGION - M51.16 (PRIMARY) TREATMENT INTERVERTEBRAL DISC DISORDER WITH RADICULOPATHY OF LUMBAR REGION NOTES: L4/5 LESI CATH LEFT IV SED. PREVENTIVE MEDICINE PAIN CLINIC TEACHING: PROCEDURE TEACHING REVIEWED INFORMATION ON LUMBAR EPIDURAL PROCEDURE WITH PATIENT. ALSO REVIEWED PRE-PROCEDURE INSTRUCTIONS. PATIENT VERBALIZED AN UNDERSTANDING. JENNIFER URRUTIA 07/17/2019 10:01:26 AM > . PROCEDURE CODES FA211 ESTABILISHED PATIENT [facility] CHAR[facility] DISPOSITION & COMMUNICATION FOLLOW UP PRE SEDATE (REASON: L4/5 LESI CATH LEFT IV SED) ELECTRONICALLY SIGNED BY YVETTE HINOJOSA ON 08/04/2019 AT 04:11 PM EST DISCLAIMER : THIS IS A VISIT SUMMARY EXTRACTED FROM THE [employer] CHART. IT IS NOT A COPY OF THE [employer] PROGRESS NOTE. VINCENT
== END ==
LOC: M PAIN 08:45
PROVIDERS: ATTEND Nurse Practitioner Family
DX: M51.16 Intervertebral disc disorders with radiculopathy, lumbar region (principal); G89.29 Other chronic pain; I10 Essential (primary) hypertension; E55.9 Vitamin D deficiency, unspecified; D50.9 Iron deficiency anemia, unspecified; R73.01 Impaired fasting glucose; K21.9 Gastro-esophageal reflux disease without esophagitis; G47.33 Obstructive sleep apnea (adult) (pediatric); Z86.14 Personal history of Methicillin resistant Staphylococcus aureus infection; Z98.84 Bariatric surgery status; Z87.891 Personal history of nicotine dependence; Z88.0 Allergy status to penicillin; Z88.1 Allergy status to other antibiotic agents; Z88.4 Allergy status to anesthetic agent; Z88.5 Allergy status to narcotic agent; Z88.8 Allergy status to other drugs, medicaments and biological substances; Z79.01 Long term (current) use of anticoagulants; Z96.89 Presence of other specified functional implants; E66.01 Morbid (severe) obesity due to excess calories; Z68.42 Body mass index [BMI] 45.0-49.9, adult; Z79.899 Other long term (current) drug therapy

== ENCOUNTER → 2019-09-11 | Outpatient (CLI) | payer MEDICARE, MEDICAID ==
--- NOTE | 2019-09-24 05:47 | ECWPNPC ---
PATIENT NAME: NISHA MUNSON : 1955 GENDER: FEMALE VISIT DATE: 09/11/2019 DISCHARGE DATE: 09/11/19 1518 VISIT LOCKED DATE TIME: PHYSICIAN: GALI LEWIS MD PHYSICIAN PAGER NO: [phone] RESOURCE: GALI LEWIS MD REASON FOR APPOINTMENT 1. PRE SEDATE HISTORY OF PRESENT ILLNESS HISTORY OF PRESENT ILLNESS: PAIN THE PATIENT DESCRIBES THE PAIN... 64-YEAR-OLD FEMALE PATIENT WITH A HISTORY OF CHRONIC LOW BACK PAIN AND LEFT LEG PAIN. THE PATIENT DESCRIBES THE PAIN ACHING, SORE, TENDER, A FEELING OF "ELECTRIC SHOCKS," AND CONTINUOUS WITH A PAIN SCORE OF 5-10/10 DEPENDING ON PHYSICAL ACTIVITY. THE PATIENT STATES THE PAIN BEGINS IN HER LOWER BACK AND RADIATES DOWN HER LEFT LEG, WHICH HAS BEEN GOING ON FOR THE LAST COUPLE YEARS BUT THE PAIN HAS BEEN INCREASING LATELY. THE PATIENT STATES THAT THE PAIN INTERFERES WITH HER ABILITY TO GROCERY SHOP, CLEAN HER HOME AND PERFORM DAILY ACTIVITIES. THE PATIENT DENIES UNEXPLAINABLE WEIGHT LOSS, FEVER, CHILLS, NEW CHANGES ON HER URINARY OR BOWEL CONTROL. FALL RISK SCREENING: SCREENING :NO FALLS REPORTED IN THE LAST YEAR CURRENT MEDICATIONS TAKING VITAMIN B12 1000 MCG SC . SC EVERY 8 WEEKS, NOTES: DUE END OF 2019 TAKING PROAIR HFA 108 (90 BASE) MCG/ACT AEROSOL SOLUTION 2 PUFFS NEEDED INHALATION QID PRN TAKING FERROUS GLUCONATE 325 MG CAPSULE 1 TABLET ORALLY TWICE DAILY TAKING VITAMIN D 5000 TABLET 1 TABLET ORALLY TID TAKING CALCIUM 600+D HIGH POTENCY 600-400 MG-UNIT TABLET 1 TABLET WITH FOOD ORALLY TWICE A DAY TAKING NYSTATIN [id number] UNITS/G TOPICAL OINTMENT . APPLIED TOPICALLY DIRECTED BID X 10 DAYS C FLARES TAKING XARELTO 20 MG TABLET 1 TAB(S) ORAL AT DINNER TIME TAKING RECLAST 5 MG/100ML SOLUTION DIRECTED INTRAVENOUS , NOTES: LAST JULY 2019 TAKING COMPRESSION STOCKINGS 30-40 MMHG KNEE HIGH I87.2 DAILY TAKING SUCRALFATE 1 GM TABLET 1 TABLET ON AN EMPTY STOMACH ORALLY TWICE A DAY TAKING TYLENOL 8 HOUR 650 MG TABLET EXTENDED RELEASE 2 TABLETS NEEDED ORALLY AKES 500 MG TAKING OXYCODONE-ACETAMINOPHEN 10-325 MG TABLET 1 TABLET NEEDED ORALLY EVERY 8 HRS TAKING TIZANIDINE HCL 4 MG CAPSULE 1 CAPSULE NEEDED ORALLY THREE TIMES A DAY TAKING PANTOPRAZOLE SODIUM 40 TABLET DELAYED RELEASE 1 TABLET ORALLY BID, NOTES: PROTONIX NOT-TAKING LIDODERM 5 % PATCH 1 PATCH TO SKIN REMOVE AFTER 12 HOURS EXTERNALLY APPLY 2 PATCHES TO RIGHT THORACIC REGION FOR SHINGLES - ON 12 HRS OFF 12 HRS NOT-TAKING DICLOFENAC SODIUM 1 % GEL 4 GM TRANSDERMAL FOUR TIMES A DAY TO B KNEES MEDICATION LIST REVIEWED AND RECONCILED WITH THE PATIENT PAST MEDICAL HISTORY 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 12/2008-SETTER HYPERTENSION ALLERGIC RHINITIS H/O IMMUNOTHERAPY X >10Y-STOPPED 2 INADEQUATE RESPONSE NONALCOHOLIC FATTY LIVER DISEASE C MILD CHRONIC ELEVATED ALP OBESITY, MORBID STATUS POST R-Y GASTRIC BYPASS 06/2006, 12/29/15-MARYJANE VITAMIN D DEFICIENCY ANEMIA, IRON/FE DEFICIENCY HISTORY OF RIGHT LOWER EXTREMITY DVT X2 IMPAIRED FASTING GLUCOSE HISTORY OF NICOTINE ADDICTION-SMOKED 7 CIGS QD X 10Y, QUIT AT 28 YO-04/2012 FEV1 2.3L (99%)/RATIO 108% GERD-11/2014 NORMAL EGD-REINDL TUBULAR ADENOMA BY 11/2014 COLONOSCOPY-REINDL ATRIAL FIBRILLATION, [id number] POD 2 TKR 05/2015- CONVERTED TO SR C CARDIOVERSION LISA, MODERATE-07/2017 HST JLUIS 17 C SAO2 TO 88% HO MRSA ABSCESS- HAS BEEN TREATED AND TESTED NEGATIVE LUMBAR DJD-11/2017 MRI L5/S1 BULGE EXTENDING INTO B NF DISPLACING R S1 ROOT, MILD L4/5 CCS R T5 ZOSTER RXED C VALCYC/PRED 05/2018 IMPINGEMENT AND SPURRING LEFT SHOULDER ALLERGIES PENICILLIN (FOR ALLERGIES USE ONLY): RASH - ALLERGY ERYTHROMYCIN: RASH - ALLERGY DOXYCYCLINE HYCLATE: RASH - ALLERGY TALWIN: RASH HIVES - ALLERGY NOVACAINE (PT NOTES SHE WAS OK WITH RECENT LIDOCAI: SWELLING - ALLERGY BACTRIM: RASH - ALLERGY TETRACYCLINE HCL: HIVES - ALLERGY VICODIN: ITCH - ALLERGY SINGULAIR: GERD - SIDE EFFECTS CODEINE SULFATE: UNCONSCIOUSNESS - ALLERGY GABAPENTIN: IRRITABILITY/AGGRESSIVENESS - SIDE EFFECTS LYRICA: SHAKING /FORGETFULNESS SURGICAL HISTORY I&D ABDOMEN ABSCESS 05/2010 OPEN GASTRIC BYPASS 2007 PARTIAL HYSTERECTOMY 2008 RIGHT SHOULDER SURGERY (X2) 2008 AND 2009 APPENDECTOMY AGE 9 RIGHT WRIST SURGERY X 2 1980S THROAT TUMOR AGE 16 SURGERY FOR DEVIATED SEPTUM AGE 18 AD [id number] 02/2014 R TKR- DR. HUYNH-[place] 06/20/15 GASTRIC BYPASS REVISION-MARYJANE 12/29/15 L TKR-DR. HUYNH-SOS 01/01/17 ROBOTIC VENTRAL HERNIA REPAIR 2 SURGICAL VENTRAL HERNIA-MARYJANE 05/16/17 HAS IVC FILTER IMPLANTED CARDIAC MONTIOR 06/03/19 FAMILY HISTORY FATHER: 66 YRS, KIDNEY FAILURE MOTHER: 78 YRS, HTN, PACEMAKER, DIAGNOSED WITH HYPERTENSION SIBLINGS: ALIVE, DIABETES, HYPERTENSION MATERNAL GRAND FATHER: , BRAIN CANCER MATERNAL GRAND MOTHER: , COLON CARCINOMA 1 SON(S) , 2 DAUGHTER(S) . MGF AND COUSIN HAD COLON CA.\\\\\\\\NDAUGHTERS-CHRONIC BACK PAIN\\\\\\\\NSON-HAD THYROIDECTOMY--UNSURE OF DIAGNOSIS. SOCIAL HISTORY GENERAL: TOBACCO USE ARE YOU A:FORMER SMOKER HOW LONG HAS IT BEEN SINCE YOU LAST SMOKED?> 10 YEARS HIV / HEP-C SCREENING HIV TEST OFFERED TO PATIENT:YES DATE OFFERED:11/05/2017 TEST ACCEPTED:NO HEP-C TEST OFFERED TO PATIENT:YES DATE OFFERED:11/22/2016 REASON:PATIENT DECLINED TEST ACCEPTED:NO REASON:PATIENT DECLINED BROCHURE PROVIDED TO PATIENTYES EDUCATION LEVEL OF EDUCATION:NOT FINISHED COLLEGE DIET: REGULAR. LANGUAGE LANGUAGES SPOKEN:MALIAN DOMESTIC VIOLENCE DO YOU FEEL SAFE IN YOUR ENVIRONMENT?YES BMI CARE GOAL FOLLOW-UP ABOVE NORMAL BMI FOLLOW-UPLIFESTYLE EDUCATION REGARDING DIET RECREATIONAL DRUG USE DRUG USE?NO EXERCISE: NO REGULAR EXERCISE, SMALL WALKS. LEARNING BARRIERS / SPECIAL NEEDS CHANGE FROM LAST VISIT?NO BARRIERS TO LEARNING?NO HEARING IMPAIRED?NO VISION IMPAIRED?YES COGNITIVELY IMPAIRED?NO :CORRECTIVE LENSES READINESS TO LEARN?YES LEARNING PREFERENCES?NO LEARNING CAPABILITIES PRESENT?YES EMOTIONAL BARRIERS?NO SPECIAL DEVICES?YES :CANE, WALKER, OTHER WALKING CANE SOCIAL HUMAN SERVICES ASSISTANTS NEEDED?NO PAIN CLINIC PFS, CLERGY, PUBLIC HEALTH REFERRALS PFS REFERRAL NEEDED?NO CLERGY REFERRAL NEEDED?NO PUBLIC HEALTH REFERRAL NEEDED?NO HAS THE PATIENT BEEN EDUCATED REGARDING HIS/HER PLAN OF CARE?YES HAS THE PATIENT BEEN EDUCATED REGARDING PAIN, THE RISK FOR PAIN, THE IMPORTANCE OF EFFECTIVE PAIN MANAGEMENT, AND THE PAIN ASSESSMENT PROCESS?YES LATEX QUESTIONNAIRE LATEX ALLERGY : HAVE YOU EVER DEVELOPED ANY TYPE OF REACTION AFTER HANDLING LATEX PRODUCTS SUCH RUBBER GLOVES, CONDOMS, DIAPHRAGMS, BALLOONS, SOCKS, OR UNDERWEAR?NO LATEX ALLERGY : HAVE YOU EVER DEVELOPED ANY TYPE OF REACTION DURING OR AFTER DENTAL APPOINTMENT, VAGINAL/RECTAL EXAMINATION, SURGICAL PROCEDURE, OR ANY OTHER EXPOSURE?NO LATEX RISK : HAVE YOU EVER HAD ANY DIFFICULTY BREATHING OR HIVES AFTER EATING OR HANDLING ANY FRUITS, OR VEGETABLES; SUCH KIWI, BANANAS, STONE FRUITS, OR CHESTNUTSNO LATEX RISK : DO YOU HAVE A PREVIOUS PERSONAL HISTORY OF MORE THAN NINE SURGERIES, SPINA BIFIDA, OR REPEATED CATHERIZATIONS? NO LATEX RISK : ARE YOU FREQUENTLY EXPOSED TO LATEX PRODUCTS IN YOUR OCCUPATION?NO DATE ASKED : 12/09/2018 CAFFEINE CAFFEINE USE?NO ADVANCE DIRECTIVE ADVANCE DIRECTIVE DISCUSSED WITH PATIENT:YES PT. HAS HCP, DAUGHTER DARIO PICKETT [phone], DAUGHTER DEANDRA BECKHAM [phone] EPISCOPALIAN [id number] SHINTO MARITAL STATUS: . ALCOHOL SCREENING DID YOU HAVE A DRINK CONTAINING ALCOHOL IN THE PAST YEAR?NO POINTS0 INTERPRETATIONNEGATIVE OCCUPATION: DISABLED. SEXUAL HX HAD SEX IN THE LAST 12 MONTHS (VAGINAL, ORAL, OR ANAL)?NO LMP:HYSTER HAVE YOU EVER HAD AN STD?NO REVIEWED WITH PT 04/15/18 1105 LASREVIEWED WITH PT 04/30/18 1000 LASREVIEWED WITH PATIENT 06/11/18 1042 JSREVIEWED WITH PATIENT 08/01/18 1033 JS 12/09/18 REVIEWED WITH PT. ADREVIEWED WITH PATIENT 12/31/18 1003 JS REVIEWED WITH PT 03/11/19 1324 BV REVIEWED WITH PATIENT 07/17/19 0921 JSREVIEWED WITH PATIENT 09/11/2019 1337 BV. HOSPITALIZATION/MAJOR DIAGNOSTIC PROCEDURE I&D MRSA ABDOMEN ABSCESS 05/2010 ACUTE DYSPNEA/HYPOXIA ([facility] PRIOR NORMAL MEAL)-ELISA AWOKE 530 2 WANDA, THEN IMMEDIATELY CAUSED COUGH/DYSPNEA-FELT ASPIRATION PN, IN ED RECEIVED ALBUTEROL NEB X 3 THEN WENT INTO AFIB C RVR, CONVERTED IN ED C IV AMIODARONE 150 X 2, -BLE DVT US,- CXR X 2 (09/09, 09/09-09/11/14 A. FIB WITH SURGERIES SURGERIES REVIEW OF SYSTEMS REVIEWED BY: PROVIDER: GALI LEWIS MD . CONSTITUTIONAL: ANY CHANGE IN YOUR MEDICAL CONDITION? NO . CHILLS NO . FEVER NO . INFECTION: DO YOU HAVE NEW INFECTIONS? NO . DO YOU HAVE HISTORY OF MRSA? NO . MUSCULOSKELETAL: ANY NEW PATTERNS OF PAIN OR NUMBNESS? NO . GASTROENTEROLOGY: ANY NEW CHANGE IN BOWEL CONTROL? NO . GENITOURINARY: ANY NEW CHANGE IN BLADDER CONTROL? NO . IS THERE A CHANCE YOU COULD BE ? NO . HEMATOLOGY/LYMPH: DO YOU TAKE ANY BLOOD THINNERS? (FOR EXAMPLE- COUMADIN, PLAVIX, AGGRENOX, PLATEL, PRADAXA, OR XARELTO) XARELTO LAST TAKEN 07/11/20 6PM . WHEN WAS YOUR LAST DOSE? DATE: TIME: . NEUROLOGY: HAVE YOU FALLEN IN THE PAST 12 MONTHS? NO . ANY NEW EXTREMITY NUMBNESS OR WEAKNESS? NO . CARDIOLOGY: DO YOU HAVE A PACEMAKER OR DEFIBRILLATOR? PT HAS INTERNAL BABY REGISTRY SALES CONSULTANT . RESPIRATORY: HAVE YOU BEEN SICK IN THE PAST WEEK? NO . FEVER NO . FLU LIKE SYMPTOMS? NO . COUGH NO . INTEGUMENTARY: DO YOU HAVE ANY RASHES OR OPEN SORES? NO . ALLERGIC/IMMUNO: ARE YOU ALLERGIC TO IV DYE? NO . ANY NEW ALLERGIES? NO . PSYCHIATRIC: DO YOU HAVE THOUGHTS OF HURTING YOURSELF OR SOMEONE ELSE? NO . ARE YOU ABUSED, NEGLECTED, OR IN AN UNSAFE ENVIRONMENT? NO . ENDOCRINOLOGY: ARE YOU DIABETIC? NO . OTHER: DO YOU NEED ANY PRESCRIPTIONS? NO . IF YES, PLEASE LIST: ____ . ANY NEW PROBLEMS WITH YOUR MEDICATIONS? NO . WHEN DID YOU LAST EAT? ____ . WHEN DID YOU LAST DRINK? ____ . WHAT DID YOU LAST DRINK? ____ . NAME OF PERSON DRIVING YOU HOME? ____ . DO YOU HAVE ANY OTHER QUESTIONS OR CONCERNS NO . VITAL SIGNS WT 260.2 LBS, HT 63 IN, BMI 46.09 INDEX, BP 120/80 MM HG, HR 96 /MIN, RR 20 /MIN, TEMP 97.9 F, OXYGEN SAT % 98%, NA INITIALS SC 13:33, REVIEWED BY: BV. EXAMINATION GENERAL EXAMINATION: PATIENT IS ALERT O X 3 AND COOPERATIVE. LUNGS CLEAR, TO AUSCULTATION. HEART: NO MURMURS OR GALLOPS; FACIAL CRANIAL NERVES ARE GROSSLY NORMAL. GOOD SYMMETRY OF FACIAL MUSCLE MOVEMENT. NORMAL VISUAL DAVID. GAIT IS ANTALGIC. PATIENT IS LIMPING FROM THE LEFT LEG, WHICH IS WEAKER AT EXTENSION AND FLEXION. STRAIGHT LEG RAISE OF THE LEFT LEG IS POSITIVE FOR RADICULOPATHY AT 40 DEGREES. MRI OF THE LUMBAR SPINE DONE ON 12/21/2017 SHOWS A BULGING DISC AT L4-L5 AND L5-S1 AND RIGHT S1 NERVE ROOT DISPLACEMENT. ASSESSMENTS INTERVERTEBRAL DISC DISORDERS WITH RADICULOPATHY, LUMBAR REGION - M51.16 (PRIMARY) TREATMENT INTERVERTEBRAL DISC DISORDERS WITH RADICULOPATHY, LUMBAR REGION CLINICAL NOTES: WE DISCUSSED SEVERAL ISSUES WITH MS. MUNSON'S PAIN MANAGEMENT CASE. DUE TO THE LUMBAR RADICULOPATHY, I WOULD LIKE TO MOVE FORWARD WITH A LUMBAR EPIDURAL STEROID INJECTION WITH A CATHETER. MS. MUNSON WILL REQUIRE 1000 RL FOR THE PROCEDURE. WE DISCUSSED THE BENEFITS, RISKS AND ALTERNATIVES OF THE INJECTIONS AND THE PATIENT WOULD LIKE TO PROCEED. THE PATIENT WOULD LIKE TO MOVE FORWARD WITH IV SEDATION DUE TO PAIN AND ANXIETY ASSOCIATED WITH THE PROCEDURE. THE PATIENT WILL FOLLOW UP IN A FEW WEEKS AFTER THE INJECTION. INSTRUCTIONS WERE GIVEN, QUESTIONS WERE ANSWERED, PATIENT REPORTS UNDERSTANDING AND AGREES WITH THE PLAN. I, MEGHAN BHATT, DOCUMENTED THE ABOVE INFORMATION ACTING A SCRIBE FOR DR. LEWIS. I HAVE REVIEWED THE ABOVE DOCUMENT, WRITTEN BY SHERIN BRICENO, AND I VERIFY THAT IT IS ACCURATE.. PREVENTIVE MEDICINE PAIN CLINIC TEACHING: PROCEDURE TEACHING REVIEWED INFORMATION ON LUMBAR EPIDURAL STEROID INJECTION PROCEDURE WITH PATIENT. ALSO REVIEWED PRE-RPOCEDURE INSTRUCTIONS. PATIENT VERBALIZED AN UNDERSTANDING. JENNIFER URRUTIA Casey 09/11/2019 3:24:13 PM > . PROCEDURE CODES FA211 ESTABILISHED PATIENT [facility] FACILITY CHARGE [id number] OFFICE/OUTPATIENT VISIT EST [id number] CURRENT MEDS W/DOSAGES DOCUMENTED G8730 PAIN ASSESS POS TOOL F/U PLAN DOC DISPOSITION & COMMUNICATION FOLLOW UP REASON: LESI W/ IV SEDATE, AND CATH ELECTRONICALLY SIGNED BY GALI LEWIS MD, ON 09/23/2019 AT 06:26 PM EST DISCLAIMER : THIS IS A VISIT SUMMARY EXTRACTED FROM THE [employer] CHART. IT IS NOT A COPY OF THE [employer] PROGRESS NOTE. MTDD
== END ==
LOC: M PAIN 13:00
PROVIDERS: ATTEND Anesthesiology
DX: M51.16 Intervertebral disc disorders with radiculopathy, lumbar region (principal); G89.29 Other chronic pain; I10 Essential (primary) hypertension; E55.9 Vitamin D deficiency, unspecified; D50.9 Iron deficiency anemia, unspecified; R73.01 Impaired fasting glucose; K21.9 Gastro-esophageal reflux disease without esophagitis; G47.33 Obstructive sleep apnea (adult) (pediatric); Z86.14 Personal history of Methicillin resistant Staphylococcus aureus infection; Z98.84 Bariatric surgery status; Z96.653 Presence of artificial knee joint, bilateral; Z87.891 Personal history of nicotine dependence; Z88.0 Allergy status to penicillin; Z88.1 Allergy status to other antibiotic agents; Z88.5 Allergy status to narcotic agent; Z88.8 Allergy status to other drugs, medicaments and biological substances; E66.01 Morbid (severe) obesity due to excess calories; Z68.42 Body mass index [BMI] 45.0-49.9, adult; Z79.01 Long term (current) use of anticoagulants; Z79.899 Other long term (current) drug therapy

== ENCOUNTER → 2019-09-15 | Outpatient (CLI) | payer MEDICARE, MEDICAID ==
[~2019-09-15] MED LIST changes: +ISOVUE-M 300 61% 15ML VIAL (Q9967) As Ordered ONE; +LIDOCAINE 1% SDV INJ 30 ML VIAL As Ordered ONE; +MIDAZOLAM INJ 2 MG/2 ML VIAL (J2250) As Ordered ONE; +diphenhydrAMINE INJ 50MG/ML VIAL (J1200) As Ordered ONE; +fentaNYL 100 MCG/2 ML INJECTION (J3010) As Ordered ONE; +methylPREDNISolone SUSP 40 MG/ML (DEPO-medrol) VIAL (J1030) As Ordered ONE
--- NOTE | 2019-09-15 14:01 | REP ---
Partial lumbar spine series: Three views . History: Injection procedure for pain. 24 seconds of fluoroscopy time is reported. Findings: A sequence of three fluoroscopically obtained last image hold procedural spot radiographs of the lumbar spine document needle position and contrast injection associated with injection procedure. Electronically Signed by Kenton Mir MD 09/15/2019 01:53 P
--- NOTE | 2019-09-26 06:41 | ECWPNPC ---
PATIENT NAME: NISHA MUNSON : 1955 GENDER: FEMALE VISIT DATE: 09/15/2019 DISCHARGE DATE: 09/15/19 1349 VISIT LOCKED DATE TIME: PHYSICIAN: GALI LEWIS MD PHYSICIAN PAGER NO: [phone] RESOURCE: GALI LEWIS MD REASON FOR APPOINTMENT 1. L5-S1 LESI W/ CATH & IV SED, PT NEEDS 1,000 RL HISTORY OF PRESENT ILLNESS HISTORY OF PRESENT ILLNESS: PAIN THE PATIENT DESCRIBES THE PAIN... FALL RISK SCREENING: SCREENING :NO FALLS REPORTED IN THE LAST YEAR CURRENT MEDICATIONS TAKING VITAMIN B12 1000 MCG SC . SC EVERY 8 WEEKS, NOTES: DUE END OF SEPTEMBER 2019 TAKING PROAIR HFA 108 (90 BASE) MCG/ACT AEROSOL SOLUTION 2 PUFFS NEEDED INHALATION QID PRN, NOTES: 09/14/2019 1600 TAKING FERROUS GLUCONATE 325 MG CAPSULE 1 TABLET ORALLY TWICE DAILY, NOTES: 09/14/2019 0700 TAKING VITAMIN D 5000 TABLET 1 TABLET ORALLY TID, NOTES: 09/15/2019 0700 TAKING CALCIUM 600+D HIGH POTENCY 600-400 MG-UNIT TABLET 1 TABLET WITH FOOD ORALLY TWICE A DAY, NOTES: 09/14/2019 0700 TAKING NYSTATIN 526406 UNITS/G TOPICAL OINTMENT . APPLIED TOPICALLY DIRECTED BID X 10 DAYS C FLARES, NOTES: PRN TAKING XARELTO 20 MG TABLET 1 TAB(S) ORAL AT DINNER TIME, NOTES: 09/11/2019 1800 TAKING RECLAST 5 MG/100ML SOLUTION DIRECTED INTRAVENOUS , NOTES: LAST JULY 2019 TAKING COMPRESSION STOCKINGS 30-40 MMHG KNEE HIGH I87.2 DAILY TAKING SUCRALFATE 1 GM TABLET 1 TABLET ON AN EMPTY STOMACH ORALLY TWICE A DAY, NOTES: 09/15/2019 0600 TAKING TYLENOL 8 HOUR 650 MG TABLET EXTENDED RELEASE 2 TABLETS NEEDED ORALLY AKES 500 MG, NOTES: PRN TAKING OXYCODONE-ACETAMINOPHEN 10-325 MG TABLET 1 TABLET NEEDED ORALLY EVERY 8 HRS, NOTES: 09/13/2019 AM TAKING TIZANIDINE HCL 4 MG CAPSULE 1 CAPSULE NEEDED ORALLY THREE TIMES A DAY, NOTES: NONE IN 3 WEEKS TAKING PANTOPRAZOLE SODIUM 40 TABLET DELAYED RELEASE 1 TABLET ORALLY BID, NOTES: 09/15/2019 0600 NOT-TAKING LIDODERM 5 % PATCH 1 PATCH TO SKIN REMOVE AFTER 12 HOURS EXTERNALLY APPLY 2 PATCHES TO RIGHT THORACIC REGION FOR SHINGLES - ON 12 HRS OFF 12 HRS NOT-TAKING DICLOFENAC SODIUM 1 % GEL 4 GM TRANSDERMAL FOUR TIMES A DAY TO B KNEES MEDICATION LIST REVIEWED AND RECONCILED WITH THE PATIENT PAST MEDICAL HISTORY 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 12/2008-SETTER HYPERTENSION ALLERGIC RHINITIS H/O IMMUNOTHERAPY X >10Y-STOPPED 2 INADEQUATE RESPONSE NONALCOHOLIC FATTY LIVER DISEASE C MILD CHRONIC ELEVATED ALP OBESITY, MORBID STATUS POST R-Y GASTRIC BYPASS 06/2006, 12/29/15-MARYJANE VITAMIN D DEFICIENCY ANEMIA, IRON/FE DEFICIENCY HISTORY OF RIGHT LOWER EXTREMITY DVT X2 IMPAIRED FASTING GLUCOSE HISTORY OF NICOTINE ADDICTION-SMOKED 7 CIGS QD X 10Y, QUIT AT 28 YO-04/2012 FEV1 2.3L (99%)/RATIO 108% GERD-11/2014 NORMAL EGD-REINDL TUBULAR ADENOMA BY 11/2014 COLONOSCOPY-REINDL ATRIAL FIBRILLATION, BPLBCYUAAM-VPI-VFDVB POD 2 TKR 05/2015- CONVERTED TO SR C CARDIOVERSION LISA, MODERATE-07/2017 HST JLUIS 17 C SAO2 TO 88% HO MRSA ABSCESS- HAS BEEN TREATED AND TESTED NEGATIVE LUMBAR DJD-11/2017 MRI L5/S1 BULGE EXTENDING INTO B NF DISPLACING R S1 ROOT, MILD L4/5 CCS R T5 ZOSTER RXED C VALCYC/PRED 05/2018 IMPINGEMENT AND SPURRING LEFT SHOULDER ALLERGIES PENICILLIN (FOR ALLERGIES USE ONLY): RASH - ALLERGY ERYTHROMYCIN: RASH - ALLERGY DOXYCYCLINE HYCLATE: RASH - ALLERGY TALWIN: RASH HIVES - ALLERGY NOVACAINE (PT NOTES SHE WAS OK WITH RECENT LIDOCAI: SWELLING - ALLERGY BACTRIM: RASH - ALLERGY TETRACYCLINE HCL: HIVES - ALLERGY VICODIN: ITCH - ALLERGY SINGULAIR: GERD - SIDE EFFECTS CODEINE SULFATE: UNCONSCIOUSNESS - ALLERGY GABAPENTIN: IRRITABILITY/AGGRESSIVENESS - SIDE EFFECTS LYRICA: SHAKING /FORGETFULNESS AMITRIPTYLINE HCL: MEMORARY ISSUES - SIDE EFFECTS SURGICAL HISTORY I&D ABDOMEN ABSCESS 05/2010 OPEN GASTRIC BYPASS 2007 PARTIAL HYSTERECTOMY 2008 RIGHT SHOULDER SURGERY (X2) 2007 AND 2009 APPENDECTOMY AGE 9 RIGHT WRIST SURGERY X 2 1980S THROAT TUMOR AGE 16 SURGERY FOR DEVIATED SEPTUM AGE 18 AD PMJUPWLB-FOLAM-JXRTAXWIL 02/2014 R TKR- DR. HUYNH-[place] 06/20/15 GASTRIC BYPASS REVISION-MARYJANE 12/29/15 L TKR-DR. HUYNH-SOS 01/01/17 ROBOTIC VENTRAL HERNIA REPAIR 2 SURGICAL VENTRAL HERNIA-MARYJANE 05/16/17 HAS IVC FILTER IMPLANTED CARDIAC MONTIOR 06/03/19 FAMILY HISTORY FATHER: 66 YRS, KIDNEY FAILURE MOTHER: 78 YRS, HTN, PACEMAKER, DIAGNOSED WITH HYPERTENSION SIBLINGS: ALIVE, DIABETES, HYPERTENSION MATERNAL GRAND FATHER: , BRAIN CANCER MATERNAL GRAND MOTHER: , COLON CARCINOMA 1 SON(S) , 2 DAUGHTER(S) . MGF AND COUSIN HAD COLON CA.\\\\NDAUGHTERS-CHRONIC BACK PAIN\\\\NSON-HAD THYROIDECTOMY--UNSURE OF DIAGNOSIS. SOCIAL HISTORY GENERAL: TOBACCO USE ARE YOU A:FORMER SMOKER HOW LONG HAS IT BEEN SINCE YOU LAST SMOKED?> 10 YEARS HIV / HEP-C SCREENING HIV TEST OFFERED TO PATIENT:YES DATE OFFERED:11/05/2017 TEST ACCEPTED:NO HEP-C TEST OFFERED TO PATIENT:YES DATE OFFERED:11/22/2016 REASON:PATIENT DECLINED TEST ACCEPTED:NO REASON:PATIENT DECLINED BROCHURE PROVIDED TO PATIENTYES EDUCATION LEVEL OF EDUCATION:NOT FINISHED COLLEGE DIET: REGULAR. LANGUAGE LANGUAGES SPOKEN:MONTENEGRIN DOMESTIC VIOLENCE DO YOU FEEL SAFE IN YOUR ENVIRONMENT?YES BMI CARE GOAL FOLLOW-UP ABOVE NORMAL BMI FOLLOW-UPLIFESTYLE EDUCATION REGARDING DIET RECREATIONAL DRUG USE DRUG USE?NO EXERCISE: NO REGULAR EXERCISE, SMALL WALKS. 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 PAIN CLINIC PFS, CLERGY, PUBLIC HEALTH REFERRALS PFS REFERRAL NEEDED?NO CLERGY REFERRAL NEEDED?NO PUBLIC HEALTH REFERRAL NEEDED?NO HAS THE PATIENT BEEN EDUCATED REGARDING HIS/HER PLAN OF CARE?YES HAS THE PATIENT BEEN EDUCATED REGARDING PAIN, THE RISK FOR PAIN, THE IMPORTANCE OF EFFECTIVE PAIN MANAGEMENT, AND THE PAIN ASSESSMENT PROCESS?YES LATEX QUESTIONNAIRE LATEX ALLERGY : HAVE YOU EVER DEVELOPED ANY TYPE OF REACTION AFTER HANDLING LATEX PRODUCTS SUCH RUBBER GLOVES, CONDOMS, DIAPHRAGMS, BALLOONS, SOCKS, OR UNDERWEAR?NO LATEX ALLERGY : HAVE YOU EVER DEVELOPED ANY TYPE OF REACTION DURING OR AFTER DENTAL APPOINTMENT, VAGINAL/RECTAL EXAMINATION, SURGICAL PROCEDURE, OR ANY OTHER EXPOSURE?NO DATE ASKED : 12/09/2018 LATEX RISK : HAVE YOU EVER HAD ANY DIFFICULTY BREATHING OR HIVES AFTER EATING OR HANDLING ANY FRUITS, OR VEGETABLES; SUCH KIWI, BANANAS, STONE FRUITS, OR CHESTNUTSNO LATEX RISK : DO YOU HAVE A PREVIOUS PERSONAL HISTORY OF MORE THAN NINE SURGERIES, SPINA BIFIDA, OR REPEATED CATHERIZATIONS? NO LATEX RISK : ARE YOU FREQUENTLY EXPOSED TO LATEX PRODUCTS IN YOUR OCCUPATION?NO CAFFEINE CAFFEINE USE?NO ADVANCE DIRECTIVE ADVANCE DIRECTIVE DISCUSSED WITH PATIENT:YES PT. HAS HCP, DAUGHTER DARIO PICKETT [phone], DAUGHTER DEANDRA BECKHAM [phone] [employer] [id number] MARITAL STATUS: . ALCOHOL SCREENING DID YOU HAVE A DRINK CONTAINING ALCOHOL IN THE PAST YEAR?NO POINTS0 INTERPRETATIONNEGATIVE OCCUPATION: DISABLED. SEXUAL HX HAD SEX IN THE LAST 12 MONTHS (VAGINAL, ORAL, OR ANAL)?NO LMP:HYSTER HAVE YOU EVER HAD AN STD?NO REVIEWED WITH PT 04/15/18 1105 LASREVIEWED WITH PT 04/30/18 1000 LASREVIEWED WITH PATIENT 06/11/18 1042 JSREVIEWED WITH PATIENT 08/01/18 1033 JS 12/09/18 REVIEWED WITH PT. ADREVIEWED WITH PATIENT 12/31/18 1003 JS REVIEWED WITH PT 03/11/19 1324 BV REVIEWED WITH PATIENT 07/17/19 0921 JSREVIEWED WITH PATIENT 09/11/2019 1337 BVREVIEWED WITH PATIENT 09/15/2019 1057 NLJ. HOSPITALIZATION/MAJOR DIAGNOSTIC PROCEDURE I&D MRSA ABDOMEN ABSCESS 05/2010 ACUTE DYSPNEA/HYPOXIA ([facility] PRIOR NORMAL MEAL)-ELISA AWOKE 530 2 WANDA, THEN IMMEDIATELY CAUSED COUGH/DYSPNEA-FELT ASPIRATION PN, IN ED RECEIVED ALBUTEROL NEB X 3 THEN WENT INTO AFIB C RVR, CONVERTED IN ED C IV AMIODARONE 150 X 2, -BLE DVT US,- CXR X 2 (09/09, 09/09-09/11/14 A. FIB WITH SURGERIES SURGERIES REVIEW OF SYSTEMS REVIEWED BY: PROVIDER: . CONSTITUTIONAL: ANY CHANGE IN YOUR MEDICAL CONDITION? NO . CHILLS NO . FEVER NO . INFECTION: DO YOU HAVE NEW INFECTIONS? NO . DO YOU HAVE HISTORY OF MRSA? NO . MUSCULOSKELETAL: ANY NEW PATTERNS OF PAIN OR NUMBNESS? NO . GASTROENTEROLOGY: ANY NEW CHANGE IN BOWEL CONTROL? NO . GENITOURINARY: ANY NEW CHANGE IN BLADDER CONTROL? NO . IS THERE A CHANCE YOU COULD BE ? NO . HEMATOLOGY/LYMPH: DO YOU TAKE ANY BLOOD THINNERS? (FOR EXAMPLE- COUMADIN, PLAVIX, AGGRENOX, PLATEL, PRADAXA, OR XARELTO) YES- XARELTO 20 MG DAILY . WHEN WAS YOUR LAST DOSE? DATE:09/11/2019 TIME: 1800 . NEUROLOGY: HAVE YOU FALLEN IN THE PAST 12 MONTHS? NO . ANY NEW EXTREMITY NUMBNESS OR WEAKNESS? NO . CARDIOLOGY: DO YOU HAVE A PACEMAKER OR DEFIBRILLATOR? NO- PT HAS AN IMPLANTED DESIGN CENTER CONSULTANT DUE TO HISTORY OF A-FIB . RESPIRATORY: HAVE YOU BEEN SICK IN THE PAST WEEK? NO . FEVER NO . FLU LIKE SYMPTOMS? NO . COUGH NO . INTEGUMENTARY: DO YOU HAVE ANY RASHES OR OPEN SORES? NO . ALLERGIC/IMMUNO: ARE YOU ALLERGIC TO IV DYE? NO . ANY NEW ALLERGIES? NO . PSYCHIATRIC: DO YOU HAVE THOUGHTS OF HURTING YOURSELF OR SOMEONE ELSE? NO . ARE YOU ABUSED, NEGLECTED, OR IN AN UNSAFE ENVIRONMENT? NO . ENDOCRINOLOGY: ARE YOU DIABETIC? NO . OTHER: DO YOU NEED ANY PRESCRIPTIONS? NO . IF YES, PLEASE LIST: ____ . ANY NEW PROBLEMS WITH YOUR MEDICATIONS? NO . WHEN DID YOU LAST EAT? 09/14/2019 1800 . WHEN DID YOU LAST DRINK? 09/15/2019 0745 . WHAT DID YOU LAST DRINK? WATER . NAME OF PERSON DRIVING YOU HOME? DARIO-DAUGHTER . DO YOU HAVE ANY OTHER QUESTIONS OR CONCERNS NO . VITAL SIGNS WT 257.8 LBS, HT 63 IN, BMI 45.66 INDEX, BP 180/80 MM HG, REPEAT BP 12/76 MANUAL, HR 85 /MIN, RR 18 /MIN, TEMP 96.4 F, OXYGEN SAT % 97%, SAFE IN ENV? (Y/N) YES, NA INITIALS AW 1034, REVIEWED BY: MACARIO. ASSESSMENTS INTERVERTEBRAL DISC DISORDER WITH RADICULOPATHY OF LUMBOSACRAL REGION - M51.17 (PRIMARY) TREATMENT INTERVERTEBRAL DISC DISORDER WITH RADICULOPATHY OF LUMBOSACRAL REGION [facility] FLUORO GUIDE SPINE INJECTION (PAIN)[id number] PROCEDURES PRE PROCEDURE DIAGNOSIS LUMBOSACRAL SPINAL STENOSIS POST PROCEDURE DIAGNOSIS LUMBOSACRAL SPINAL STENOSIS PROCEDURE LUMBAR EPIDURAL STEROID INJECTION UNDER FLUOROSCOPIC GUIDANCE SURGEON DR. 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 I EVALUATED THE PATIENT AND REVIEWED THE CHART. I WENT OVER THE RISKS, ALTERNATIVES AND BENEFITS ASSOCIATED WITH THIS PROCEDURE. PATIENT WOULD LIKE TO MOVE FORWARD WITH IV SEDATION DUE TO DISCOMFORT, PAIN AND ANXIETY ASSOCIATED WITH THE PROCEDURE. THE PATIENT WOULD LIKE TO PROCEED AND GAVE CONSENT TO PERFORM THE PROCEDURE. THE PATIENT DENIES UNEXPLAINABLE WEIGHT LOSS, FEVER, CHILLS, OR NEW CHANGES IN URINARY OR BOWEL CONTROL. DESCRIPTION OF PROCEDURE THE PATIENT WAS BROUGHT TO THE PROCEDURE ROOM AND PLACED IN THE PRONE POSITION. THE LUMBOSACRAL AREA WAS CLEANED WITH BETADINE SOLUTION AND DRAPED ASEPTICALLY. THE PROCEDURE WAS DONE UNDER STERILE CONDITIONS. I CHECKED LATERALITY AND THE LEVEL WHERE THE PROCEDURE WAS GOING TO BE PERFORMED WITH THE PATIENT AND THE SUPPORTING STAFF AT THE MOMENT OF THE TIMEOUT IN THE PROCEDURE ROOM. UNDER FLUOROSCOPIC GUIDANCE, THE TARGET POINT WAS SELECTED AT THE INTERLAMINAR LEVEL OF L5-S1. LIDOCAINE WAS USED TO NUMB THE SKIN AND THE SUBCUTANEOUS TISSUE BELOW IT. EPIDURAL TUOHY NEEDLE, 16-GAUGE, WAS ADVANCED UNDER FLUOROSCOPIC GUIDANCE AND FOLLOWING PATIENT FEEDBACK UNTIL THE EPIDURAL SPACE WAS REACHED, 7 CM DEEP INTO THE SKIN BY THE LOSS OF RESISTANCE TECHNIQUE. I ADVANCED A 19-GAUGE EPIMED CATHETER THROUGH A 16-GAUGE NEEDLE TO THE LEFT OF L4-L5. ISOVUE M DYE 30%, 0.25 ML, WAS INJECTED SHOWING ADEQUATE SPREAD OF THE DYE. THEN, A SOLUTION OF 3 ML OF NORMAL SALINE WITH DEPO-MEDROL 60 MG WAS INJECTED SLOWLY FOLLOWING PATIENT FEEDBACK. THERE WAS NO EVIDENCE OF BLOOD, PARESTHESIA OR CEREBROSPINAL FLUID DURING THE PROCEDURE. THE PATIENT WAS SENT TO THE RECOVERY ROOM. THE PATIENT WAS MOVING THE EXTREMITIES AND DOING WELL. THERE WAS NO COMPLICATION DURING THE PROCEDURE. PATIENT RECEIVED VERSED 2 MG AND FENTANYL 150 MCG IV DIVIDED DOSES. FLUOROSCOPY TIME WAS 24 SECONDS. FACE TO FACE TIME WAS 22 MINUTES. POST PROCEDURE NOTE THE PATIENT WILL BE SEEN IN A FOLLOWUP IN THE NEXT FEW WEEKS. I AM LOOKING FOR LONG-LASTING PAIN RELIEF WITH THIS INTERVENTION. IN THE FUTURE, WE WILL CONSIDER A TRANSFORAMINAL LUMBAR EPIDURAL INJECTION. INSTRUCTIONS WERE GIVEN, QUESTIONS WERE ANSWERED, AND THE PATIENT EXPRESSED UNDERSTANDING AND AGREES WITH THE PLAN. I, MEGHAN BHATT, DOCUMENTED THE ABOVE INFORMATION ACTING A SCRIBE FOR DR. LEWIS. I HAVE REVIEWED THE ABOVE DOCUMENT, WRITTEN BY MEGHAN BHATT, SCRIBE, AND I VERIFY THAT IT IS ACCURATE PROCEDURE CODES 85275 LUMBAR/SACRAL W/ IMAGING 6045F RADXPS IN END [id number] PXD 13726 MOD SED SAME PHYS/QHP 5/>YRS DISPOSITION & COMMUNICATION FOLLOW UP 2 WEEKS ELECTRONICALLY SIGNED BY GALI LEWIS MD, ON 09/25/2019 AT 05:34 PM EST DISCLAIMER : THIS IS A VISIT SUMMARY EXTRACTED FROM THE [employer] CHART. IT IS NOT A COPY OF THE [employer] PROGRESS NOTE. MTDD
== END ==
LOC: M PAIN 10:15
PROVIDERS: ATTEND Anesthesiology
DX: M51.17 Intervertebral disc disorders with radiculopathy, lumbosacral region (principal); I10 Essential (primary) hypertension; E55.9 Vitamin D deficiency, unspecified; D50.9 Iron deficiency anemia, unspecified; R73.01 Impaired fasting glucose; K21.9 Gastro-esophageal reflux disease without esophagitis; G47.33 Obstructive sleep apnea (adult) (pediatric); Z86.14 Personal history of Methicillin resistant Staphylococcus aureus infection; Z98.84 Bariatric surgery status; Z96.653 Presence of artificial knee joint, bilateral; Z87.891 Personal history of nicotine dependence; Z88.0 Allergy status to penicillin; Z88.1 Allergy status to other antibiotic agents; Z88.5 Allergy status to narcotic agent; Z88.8 Allergy status to other drugs, medicaments and biological substances; E66.01 Morbid (severe) obesity due to excess calories; Z68.42 Body mass index [BMI] 45.0-49.9, adult; Z79.01 Long term (current) use of anticoagulants; Z79.899 Other long term (current) drug therapy
CPT/HCPCS: 62323; 99152; J1030; J2250; J3010; Q9967

== ENCOUNTER → 2019-09-30 | Outpatient (CLI) | payer MEDICARE, MEDICAID ==
[~2019-09-30] MED LIST changes: -ISOVUE-M 300 61% 15ML VIAL (Q9967) As Ordered ONE; -LIDOCAINE 1% SDV INJ 30 ML VIAL As Ordered ONE; -MIDAZOLAM INJ 2 MG/2 ML VIAL (J2250) As Ordered ONE; -diphenhydrAMINE INJ 50MG/ML VIAL (J1200) As Ordered ONE; -fentaNYL 100 MCG/2 ML INJECTION (J3010) As Ordered ONE; -methylPREDNISolone SUSP 40 MG/ML (DEPO-medrol) VIAL (J1030) As Ordered ONE
--- NOTE | 2019-10-20 03:46 | ECWPNPC ---
PATIENT NAME: NISHA MUNSON : 1955 GENDER: FEMALE VISIT DATE: 09/30/2019 DISCHARGE DATE: 09/30/19 1501 VISIT LOCKED DATE TIME: PHYSICIAN: VIOLETA TITUS PHYSICIAN PAGER NO: [phone] RESOURCE: VIOLETA TITUS REASON FOR APPOINTMENT 1. POST PROCEDURE HISTORY OF PRESENT ILLNESS HISTORY OF PRESENT ILLNESS: HERE FOR POST PROCEDURE FOLLOW-UP. HAD LUMBAR EPIDURAL STEROID INJECTION WITH SEDATION ON 09/15/2019. CONTINUES TO BENEFIT FROM IMPROVED PAIN CONTROL ACROSS HER LOWER BACK. RATING PAIN LEVEL A 3-6/10 VAS. DESCRIBES PAIN INTERMITTENT, ACHING AND ELECTRICAL SHOCK LIKE PAIN. HAS TRIALED MEDICATIONS WITH FREQUENT EPISODES OF SIDE EFFECTS, I.E., LYRICA. REVIEWED MRI AND DISCUSSED TREATMENT OPTIONS.0. PAIN THE PATIENT DESCRIBES THE PAIN... FALL RISK SCREENING: SCREENING :NO FALLS REPORTED IN THE LAST YEAR CURRENT MEDICATIONS TAKING VITAMIN B12 1000 MCG SC . SC EVERY 8 WEEKS TAKING PROAIR HFA 108 (90 BASE) MCG/ACT AEROSOL SOLUTION 2 PUFFS NEEDED INHALATION QID PRN TAKING FERROUS GLUCONATE 325 MG CAPSULE 1 TABLET ORALLY TWICE DAILY TAKING VITAMIN D 5000 TABLET 1 TABLET ORALLY TID TAKING CALCIUM 600+D HIGH POTENCY 600-400 MG-UNIT TABLET 1 TABLET WITH FOOD ORALLY TWICE A DAY TAKING NYSTATIN 046199 UNITS/G TOPICAL OINTMENT . APPLIED TOPICALLY DIRECTED BID X 10 DAYS C FLARES TAKING XARELTO 20 MG TABLET 1 TAB(S) ORAL AT DINNER TIME TAKING RECLAST 5 MG/100ML SOLUTION DIRECTED INTRAVENOUS TAKING COMPRESSION STOCKINGS 30-40 MMHG KNEE HIGH I87.2 DAILY TAKING SUCRALFATE 1 GM TABLET 1 TABLET ON AN EMPTY STOMACH ORALLY TWICE A DAY TAKING TYLENOL 8 HOUR 650 MG TABLET EXTENDED RELEASE 2 TABLETS NEEDED ORALLY AKES 500 MG TAKING OXYCODONE-ACETAMINOPHEN 10-325 MG TABLET 1 TABLET NEEDED ORALLY EVERY 8 HRS TAKING TIZANIDINE HCL 4 MG CAPSULE 1 CAPSULE NEEDED ORALLY THREE TIMES A DAY TAKING PANTOPRAZOLE SODIUM 40 TABLET DELAYED RELEASE 1 TABLET ORALLY BID NOT-TAKING LIDODERM 5 % PATCH 1 PATCH TO SKIN REMOVE AFTER 12 HOURS EXTERNALLY APPLY 2 PATCHES TO RIGHT THORACIC REGION FOR SHINGLES - ON 12 HRS OFF 12 HRS NOT-TAKING DICLOFENAC SODIUM 1 % GEL 4 GM TRANSDERMAL FOUR TIMES A DAY TO B KNEES MEDICATION LIST REVIEWED AND RECONCILED WITH THE PATIENT PAST MEDICAL HISTORY 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 12/2008-SETTER HYPERTENSION ALLERGIC RHINITIS H/O IMMUNOTHERAPY X >10Y-STOPPED 2 INADEQUATE RESPONSE NONALCOHOLIC FATTY LIVER DISEASE C MILD CHRONIC ELEVATED ALP OBESITY, MORBID STATUS POST R-Y GASTRIC BYPASS 06/2006, 12/29/15-MARYJANE VITAMIN D DEFICIENCY ANEMIA, IRON/FE DEFICIENCY HISTORY OF RIGHT LOWER EXTREMITY DVT X2 IMPAIRED FASTING GLUCOSE HISTORY OF NICOTINE ADDICTION-SMOKED 7 CIGS QD X 10Y, QUIT AT 28 YO-04/2012 FEV1 2.3L (99%)/RATIO 108% GERD-11/2014 NORMAL EGD-REINDL TUBULAR ADENOMA BY 11/2014 COLONOSCOPY-REINDL ATRIAL FIBRILLATION, [id number] POD 2 TKR 05/2015- CONVERTED TO SR C CARDIOVERSION LISA, MODERATE-07/2017 HST JLUIS 17 C SAO2 TO 88% HO MRSA ABSCESS- HAS BEEN TREATED AND TESTED NEGATIVE LUMBAR DJD-11/2017 MRI L5/S1 BULGE EXTENDING INTO B NF DISPLACING R S1 ROOT, MILD L4/5 CCS R T5 ZOSTER RXED C VALCYC/PRED 05/2018 IMPINGEMENT AND SPURRING LEFT SHOULDER ALLERGIES PENICILLIN (FOR ALLERGIES USE ONLY): RASH - ALLERGY ERYTHROMYCIN: RASH - ALLERGY DOXYCYCLINE HYCLATE: RASH - ALLERGY TALWIN: RASH HIVES - ALLERGY NOVACAINE (PT NOTES SHE WAS OK WITH RECENT LIDOCAI: SWELLING - ALLERGY BACTRIM: RASH - ALLERGY TETRACYCLINE HCL: HIVES - ALLERGY VICODIN: ITCH - ALLERGY SINGULAIR: GERD - SIDE EFFECTS CODEINE SULFATE: UNCONSCIOUSNESS - ALLERGY GABAPENTIN: IRRITABILITY/AGGRESSIVENESS - SIDE EFFECTS LYRICA: SHAKING /FORGETFULNESS AMITRIPTYLINE HCL: MEMORARY ISSUES - SIDE EFFECTS SURGICAL HISTORY I&D ABDOMEN ABSCESS 05/2010 OPEN GASTRIC BYPASS 2007 PARTIAL HYSTERECTOMY 2008 RIGHT SHOULDER SURGERY (X2) 2008 AND 2009 APPENDECTOMY AGE 9 RIGHT WRIST SURGERY X 2 1980S THROAT TUMOR AGE 16 SURGERY FOR DEVIATED SEPTUM AGE 18 AD [id number] 02/2014 R TKR- DR. HUYNH-[place] 06/20/15 GASTRIC BYPASS REVISION-MARYJANE 12/29/15 L TKR-DR. HUYNH-SOS 01/01/17 ROBOTIC VENTRAL HERNIA REPAIR 2 SURGICAL VENTRAL HERNIA-MARYJANE 05/16/17 HAS IVC FILTER IMPLANTED CARDIAC MONTIOR 10/9/19 FAMILY HISTORY FATHER: 66 YRS, KIDNEY FAILURE MOTHER: 78 YRS, HTN, PACEMAKER, DIAGNOSED WITH HYPERTENSION SIBLINGS: ALIVE, DIABETES, HYPERTENSION MATERNAL GRAND FATHER: , BRAIN CANCER MATERNAL GRAND MOTHER: , COLON CARCINOMA 1 SON(S) , 2 DAUGHTER(S) . MGF AND COUSIN HAD COLON CA.\\\\NDAUGHTERS-CHRONIC BACK PAIN\\\\NSON-HAD THYROIDECTOMY--UNSURE OF DIAGNOSIS. SOCIAL HISTORY GENERAL: TOBACCO USE ARE YOU A:FORMER SMOKER HOW LONG HAS IT BEEN SINCE YOU LAST SMOKED?> 10 YEARS HIV / HEP-C SCREENING HIV TEST OFFERED TO PATIENT:YES DATE OFFERED:11/05/2017 TEST ACCEPTED:NO HEP-C TEST OFFERED TO PATIENT:YES DATE OFFERED:11/22/2016 REASON:PATIENT DECLINED TEST ACCEPTED:NO REASON:PATIENT DECLINED BROCHURE PROVIDED TO PATIENTYES EDUCATION LEVEL OF EDUCATION:NOT FINISHED COLLEGE DIET: REGULAR. LANGUAGE LANGUAGES SPOKEN:ERITREAN DOMESTIC VIOLENCE DO YOU FEEL SAFE IN YOUR ENVIRONMENT?YES BMI CARE GOAL FOLLOW-UP ABOVE NORMAL BMI FOLLOW-UPLIFESTYLE EDUCATION REGARDING DIET RECREATIONAL DRUG USE DRUG USE?NO EXERCISE: NO REGULAR EXERCISE, SMALL WALKS. LEARNING BARRIERS / SPECIAL NEEDS CHANGE FROM LAST VISIT?NO BARRIERS TO LEARNING?NO HEARING IMPAIRED?NO VISION IMPAIRED?YES COGNITIVELY IMPAIRED?NO :CORRECTIVE LENSES READINESS TO LEARN?YES LEARNING PREFERENCES?NO LEARNING CAPABILITIES PRESENT?YES EMOTIONAL BARRIERS?NO SPECIAL DEVICES?YES :CANE, WALKER, OTHER WALKING CANE SUPERINTENDENT CIRCUS NEEDED?NO PAIN CLINIC PFS, CLERGY, PUBLIC HEALTH REFERRALS PFS REFERRAL NEEDED?NO CLERGY REFERRAL NEEDED?NO PUBLIC HEALTH REFERRAL NEEDED?NO HAS THE PATIENT BEEN EDUCATED REGARDING HIS/HER PLAN OF CARE?YES HAS THE PATIENT BEEN EDUCATED REGARDING PAIN, THE RISK FOR PAIN, THE IMPORTANCE OF EFFECTIVE PAIN MANAGEMENT, AND THE PAIN ASSESSMENT PROCESS?YES LATEX QUESTIONNAIRE LATEX ALLERGY : HAVE YOU EVER DEVELOPED ANY TYPE OF REACTION AFTER HANDLING LATEX PRODUCTS SUCH RUBBER GLOVES, CONDOMS, DIAPHRAGMS, BALLOONS, SOCKS, OR UNDERWEAR?NO LATEX ALLERGY : HAVE YOU EVER DEVELOPED ANY TYPE OF REACTION DURING OR AFTER DENTAL APPOINTMENT, VAGINAL/RECTAL EXAMINATION, SURGICAL PROCEDURE, OR ANY OTHER EXPOSURE?NO LATEX RISK : HAVE YOU EVER HAD ANY DIFFICULTY BREATHING OR HIVES AFTER EATING OR HANDLING ANY FRUITS, OR VEGETABLES; SUCH KIWI, BANANAS, STONE FRUITS, OR CHESTNUTSNO LATEX RISK : DO YOU HAVE A PREVIOUS PERSONAL HISTORY OF MORE THAN NINE SURGERIES, SPINA BIFIDA, OR REPEATED CATHERIZATIONS? NO LATEX RISK : ARE YOU FREQUENTLY EXPOSED TO LATEX PRODUCTS IN YOUR OCCUPATION?NO DATE ASKED : 12/09/2018 CAFFEINE CAFFEINE USE?NO ADVANCE DIRECTIVE ADVANCE DIRECTIVE DISCUSSED WITH PATIENT:YES PT. HAS HCP, DAUGHTER DARIO PICKETT [phone], DAUGHTER DEANDRA BECKHAM [phone] RASTAFARI [id number] GNOSTICIST MARITAL STATUS: . ALCOHOL SCREENING DID YOU HAVE A DRINK CONTAINING ALCOHOL IN THE PAST YEAR?NO POINTS0 INTERPRETATIONNEGATIVE OCCUPATION: DISABLED. SEXUAL HX HAD SEX IN THE LAST 12 MONTHS (VAGINAL, ORAL, OR ANAL)?NO LMP:HYSTER HAVE YOU EVER HAD AN STD?NO REVIEWED WITH PT 04/15/18 1105 LASREVIEWED WITH PT 04/30/18 1000 LASREVIEWED WITH PATIENT 06/11/18 1042 JSREVIEWED WITH PATIENT 08/01/18 1033 JS 12/09/18 REVIEWED WITH PT. ADREVIEWED WITH PATIENT 12/31/18 1003 JS REVIEWED WITH PT 03/11/19 1324 BV REVIEWED WITH PATIENT 07/17/19 0921 JSREVIEWED WITH PATIENT 09/11/2019 1337 BVREVIEWED WITH PATIENT 09/15/2019 1057 NLJ REVIEWED WITH PATIENT 09/30/2019 1420 JS. HOSPITALIZATION/MAJOR DIAGNOSTIC PROCEDURE I&D MRSA ABDOMEN ABSCESS 05/2010 ACUTE DYSPNEA/HYPOXIA ([facility] PRIOR NORMAL MEAL)-ELISA AWOKE 530 2 WANDA, THEN IMMEDIATELY CAUSED COUGH/DYSPNEA-FELT ASPIRATION PN, IN ED RECEIVED ALBUTEROL NEB X 3 THEN WENT INTO AFIB C RVR, CONVERTED IN ED C IV AMIODARONE 150 X 2, -BLE DVT US,- CXR X 2 (09/09, 09/09-09/11/14 A. FIB WITH SURGERIES SURGERIES REVIEW OF SYSTEMS REVIEWED BY: PROVIDER: VIOLETA CRAWFORD . CONSTITUTIONAL: ANY CHANGE IN YOUR MEDICAL CONDITION? NO . CHILLS NO . FEVER NO . INFECTION: DO YOU HAVE NEW INFECTIONS? NO . DO YOU HAVE HISTORY OF MRSA? NO . MUSCULOSKELETAL: ANY NEW PATTERNS OF PAIN OR NUMBNESS? NO . GASTROENTEROLOGY: ANY NEW CHANGE IN BOWEL CONTROL? NO . GENITOURINARY: ANY NEW CHANGE IN BLADDER CONTROL? NO . IS THERE A CHANCE YOU COULD BE ? NO . HEMATOLOGY/LYMPH: DO YOU TAKE ANY BLOOD THINNERS? (FOR EXAMPLE- COUMADIN, PLAVIX, AGGRENOX, PLATEL, PRADAXA, OR XARELTO) YES, XARELTO . WHEN WAS YOUR LAST DOSE? DATE: 09/29/2019TIME: 1800 . NEUROLOGY: HAVE YOU FALLEN IN THE PAST 12 MONTHS? NO . ANY NEW EXTREMITY NUMBNESS OR WEAKNESS? NO . CARDIOLOGY: DO YOU HAVE A PACEMAKER OR DEFIBRILLATOR? 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 RESPIRATORY: HAVE YOU BEEN SICK IN THE PAST WEEK? NO . FEVER NO . FLU LIKE SYMPTOMS? NO . COUGH NO . INTEGUMENTARY: DO YOU HAVE ANY RASHES OR OPEN SORES? NO . ALLERGIC/IMMUNO: ARE YOU ALLERGIC TO IV DYE? NO . ANY NEW ALLERGIES? NO . PSYCHIATRIC: DO YOU HAVE THOUGHTS OF HURTING YOURSELF OR SOMEONE ELSE? NO . ARE YOU ABUSED, NEGLECTED, OR IN AN UNSAFE ENVIRONMENT? NO . ENDOCRINOLOGY: ARE YOU DIABETIC? NO . OTHER: DO YOU NEED ANY PRESCRIPTIONS? NO . IF YES, PLEASE LIST: ____ . ANY NEW PROBLEMS WITH YOUR MEDICATIONS? NO . WHEN DID YOU LAST EAT? ____ . WHEN DID YOU LAST DRINK? ____ . WHAT DID YOU LAST DRINK? ____ . NAME OF PERSON DRIVING YOU HOME? ____ . DO YOU HAVE ANY OTHER QUESTIONS OR CONCERNS NO . VITAL SIGNS WT 259.2 LBS, HT 63 IN, BMI 45.91 INDEX, BP 130/70 MM HG, HR 83 /MIN, RR 18 /MIN, TEMP 97.9 F, OXYGEN SAT % 98%, SAFE IN ENV? (Y/N) YES, NA INITIALS AW 1420, REVIEWED BY: KULDIP. EXAMINATION GENERAL EXAMINATION: GENERAL AWAKE,ALERT ,PLEAASANT . PSYCH AFFECT NORMAL . LUNGS: LUNG DAVID ARE CLEAR TO AUSCULTATION BILATERALLY. GOOD MOVEMENT OF AIR . HEART: S1, S2 IN A REGULAR RATE AND RHYTHM. NO SIGNIFICANT MURMURS, RUBS OR GALLOPS NOTED . LUMBAR:PALPATION:TENDER OVER BILAT. L4/5-L5/S1 LUMBAR FACETS WITH FACET LOADING.. DIAGNOSTIC TESTS REVIEWED MRI -12/17/17--L/S SPINE. 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 (REF # ) BRINGS IN MEDICATIONS WHICH IS APPROPRIATE FOR WHAT WAS DISPENSED. RECENT URINE TOXICOLOGY REVIEWED. NO UNAUTHORIZED MEDICATIONS. NO ILLICIT SUBSTANCES AND PRESCRIBED MEDICATIONS WERE PRESENT. ,, RISKS OF NARCOTIC/OPIOD MEDICATIONS INCLUDES BUT IS NOT LIMITED TO RISK OF DEPENDANCE/DEVELOPMENT OF ADDICTION, MOOD DISTURBANCE AND DEPRESSION, OSTEOPOROSIS, HORMONAL AND LABIDAL CHANGES, RESPIRATORY DEPRESSION AND . PATIENT IS ADVISED NOT TO DRIVE OR DRINK ALCOHOL WHILE ON THESE MEDICATIONS. PROCEDURE CODES FA211 ESTABILISHED PATIENT [facility] CHARGE DISPOSITION & COMMUNICATION FOLLOW UP 2 MONTHS ELECTRONICALLY SIGNED BY YVETTE HINOJOSA ON 10/19/2019 AT 09:30 AM EST DISCLAIMER : THIS IS A VISIT SUMMARY EXTRACTED FROM THE [employer] CHART. IT IS NOT A COPY OF THE [employer] PROGRESS NOTE. VINCENT
== END ==
LOC: M PAIN 13:45
PROVIDERS: ATTEND Nurse Practitioner Family
DX: M46.96 Unspecified inflammatory spondylopathy, lumbar region (principal); G62.9 Polyneuropathy, unspecified; I10 Essential (primary) hypertension; E55.9 Vitamin D deficiency, unspecified; D50.9 Iron deficiency anemia, unspecified; Z86.718 Personal history of other venous thrombosis and embolism; R73.01 Impaired fasting glucose; K21.9 Gastro-esophageal reflux disease without esophagitis; G47.33 Obstructive sleep apnea (adult) (pediatric); Z86.14 Personal history of Methicillin resistant Staphylococcus aureus infection; Z98.84 Bariatric surgery status; Z87.891 Personal history of nicotine dependence; Z88.0 Allergy status to penicillin; Z88.1 Allergy status to other antibiotic agents; Z88.4 Allergy status to anesthetic agent; Z88.5 Allergy status to narcotic agent; Z88.8 Allergy status to other drugs, medicaments and biological substances; E66.01 Morbid (severe) obesity due to excess calories; Z68.42 Body mass index [BMI] 45.0-49.9, adult; Z79.01 Long term (current) use of anticoagulants; Z79.899 Other long term (current) drug therapy

== ENCOUNTER → 2019-10-15 | Outpatient (REF) | payer MEDICARE, MEDICAID | LOC: M LAB REF 16:56 | PROVIDERS: ATTEND Physician Assistant Medical | DX: L82.1 Other seborrheic keratosis (principal) ==

== ENCOUNTER → 2019-12-02 | Outpatient (CLI) | payer MEDICARE, MEDICAID ==
--- NOTE | 2019-12-03 04:14 | ECWPNPC ---
PATIENT NAME: NISHA MUNSON : 1955 GENDER: FEMALE VISIT DATE: 12/02/2019 DISCHARGE DATE: 12/02/19 1004 VISIT LOCKED DATE TIME: PHYSICIAN: VIOLETA TITUS PHYSICIAN PAGER NO: [phone] RESOURCE: VIOLETA TITUS REASON FOR APPOINTMENT 1. 2 MONTH HISTORY OF PRESENT ILLNESS HISTORY OF PRESENT ILLNESS: HERE FOR FOLLOW-UP OF CHRONIC LOW BACK PAIN WITH LEFT LEG RADICULAR SYMPTOMS. REPORTING A 2 WEEK SEVERE INCREASE IN BILATERAL LOW BACK PAIN WITH LEFT LEG RADICULAR SYMPTOMS. PAIN HAS BEEN SO SEVERE SHE HAS NOT BEEN ABLE TO COOK OR TOLERATE ACTIVITIES OF DAILY LIVING. REPORTING INCREASE IN TYLENOL CONSUMPTION OVER THE PAST 2 WEEKS DUE TO PAIN. HAS RESPONDED WELL TO LUMBAR EPIDURAL STEROID INJECTION IN THE PAST. RATING PAIN LEVEL VIII/X VAS. PAIN THE PATIENT DESCRIBES THE PAIN... FALL RISK SCREENING: SCREENING :NO FALLS REPORTED IN THE LAST YEAR CURRENT MEDICATIONS TAKING CLARITIN 10 MG TABLET 1 TABLET ORALLY ONCE A DAY TAKING VITAMIN B12 1000 MCG SC . SC EVERY 8 WEEKS TAKING PROAIR HFA 108 (90 BASE) MCG/ACT AEROSOL SOLUTION 2 PUFFS NEEDED INHALATION QID PRN TAKING FERROUS GLUCONATE 325 MG CAPSULE 1 TABLET ORALLY TWICE DAILY TAKING VITAMIN D 5000 TABLET 1 TABLET ORALLY TID TAKING CALCIUM 600+D HIGH POTENCY 600-400 MG-UNIT TABLET 1 TABLET WITH FOOD ORALLY TWICE A DAY TAKING NYSTATIN [id number] UNITS/G TOPICAL OINTMENT . APPLIED TOPICALLY DIRECTED BID X 10 DAYS C FLARES TAKING XARELTO 20 MG TABLET 1 TAB(S) ORAL AT DINNER TIME TAKING RECLAST 5 MG/100ML SOLUTION DIRECTED INTRAVENOUS TAKING COMPRESSION STOCKINGS 30-40 MMHG KNEE HIGH I87.2 DAILY TAKING SUCRALFATE 1 GM TABLET 1 TABLET ON AN EMPTY STOMACH ORALLY TWICE A DAY TAKING TYLENOL 8 HOUR 650 MG TABLET EXTENDED RELEASE 2 TABLETS NEEDED ORALLY AKES 500 MG TAKING OXYCODONE-ACETAMINOPHEN 10-325 MG TABLET 1 TABLET NEEDED ORALLY EVERY 8 HRS TAKING TIZANIDINE HCL 4 MG CAPSULE 1 CAPSULE NEEDED ORALLY THREE TIMES A DAY, NOTES: NOT CURRENTLY TAKING - W/C FIGHTING TAKING PANTOPRAZOLE SODIUM 40 TABLET DELAYED RELEASE 1 TABLET ORALLY BID TAKING AMLODIPINE BESYLATE 2.5 MG TABLET 1 TABLET IF BP>130/80 ORALLY ONCE A DAY MEDICATION LIST REVIEWED AND RECONCILED WITH THE PATIENT PAST MEDICAL HISTORY 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 12/2008-SETTER HYPERTENSION ALLERGIC RHINITIS H/O IMMUNOTHERAPY X >10Y-STOPPED 2 INADEQUATE RESPONSE NONALCOHOLIC FATTY LIVER DISEASE C MILD CHRONIC ELEVATED ALP OBESITY, MORBID STATUS POST R-Y GASTRIC BYPASS 06/2006, 12/29/15-MARYJANE VITAMIN D DEFICIENCY ANEMIA, IRON/FE DEFICIENCY HISTORY OF RIGHT LOWER EXTREMITY DVT X2 IMPAIRED FASTING GLUCOSE HISTORY OF NICOTINE ADDICTION-SMOKED 7 CIGS QD X 10Y, QUIT AT 28 YO-04/2012 FEV1 2.3L (99%)/RATIO 108% GERD-11/2014 NORMAL EGD-REINDL TUBULAR ADENOMA BY 11/2014 COLONOSCOPY-REINDL ATRIAL FIBRILLATION, [id number] POD 2 TKR 05/2015- CONVERTED TO SR C CARDIOVERSION LISA, MODERATE-07/2017 HST JLUIS 17 C SAO2 TO 88% HO MRSA ABSCESS- HAS BEEN TREATED AND TESTED NEGATIVE LUMBAR DJD-11/2017 MRI L5/S1 BULGE EXTENDING INTO B NF DISPLACING R S1 ROOT, MILD L4/5 CCS R T5 ZOSTER RXED C VALCYC/PRED 05/2018 IMPINGEMENT AND SPURRING LEFT SHOULDER ALLERGIES PENICILLIN (FOR ALLERGIES USE ONLY): RASH - ALLERGY ERYTHROMYCIN: RASH - ALLERGY DOXYCYCLINE HYCLATE: RASH - ALLERGY TALWIN: RASH HIVES - ALLERGY NOVACAINE (PT NOTES SHE WAS OK WITH RECENT LIDOCAI: SWELLING - ALLERGY BACTRIM: RASH - ALLERGY TETRACYCLINE HCL: HIVES - ALLERGY VICODIN: ITCH - ALLERGY SINGULAIR: GERD - SIDE EFFECTS CODEINE SULFATE: UNCONSCIOUSNESS - ALLERGY GABAPENTIN: IRRITABILITY/AGGRESSIVENESS - SIDE EFFECTS LYRICA: SHAKING /FORGETFULNESS AMITRIPTYLINE HCL: MEMORARY ISSUES - SIDE EFFECTS ADHESIVE SURGICAL HISTORY I&D ABDOMEN ABSCESS 05/2010 OPEN GASTRIC BYPASS 2007 PARTIAL HYSTERECTOMY 2008 RIGHT SHOULDER SURGERY (X2) 2008 AND 2009 APPENDECTOMY AGE 9 RIGHT WRIST SURGERY X 2 1980S THROAT TUMOR AGE 16 SURGERY FOR DEVIATED SEPTUM AGE 18 AD [id number] 02/2014 R TKR- DR. HUYNH-[place] 06/20/15 GASTRIC BYPASS REVISION-MARYJANE 12/29/15 L TKR-DR. HUYNH-SOS 01/01/17 ROBOTIC VENTRAL HERNIA REPAIR 2 SURGICAL VENTRAL HERNIA-MARYJANE 05/16/17 HAS IVC FILTER IMPLANTED CARDIAC MONTIOR 06/03/19 FAMILY HISTORY FATHER: 66 YRS, KIDNEY FAILURE MOTHER: 78 YRS, HTN, PACEMAKER, DIAGNOSED WITH HYPERTENSION SIBLINGS: ALIVE, DIABETES, HYPERTENSION MATERNAL GRAND FATHER: , BRAIN CANCER MATERNAL GRAND MOTHER: , COLON CARCINOMA 1 SON(S) , 2 DAUGHTER(S) . MGF AND COUSIN HAD COLON CA.\\\\NDAUGHTERS-CHRONIC BACK PAIN\\\\NSON-HAD THYROIDECTOMY--UNSURE OF DIAGNOSIS. SOCIAL HISTORY GENERAL: TOBACCO USE ARE YOU A:FORMER SMOKER HOW LONG HAS IT BEEN SINCE YOU LAST SMOKED?> 10 YEARS PAIN CLINIC PFS, CLERGY, PUBLIC HEALTH REFERRALS PFS REFERRAL NEEDED?NO CLERGY REFERRAL NEEDED?NO PUBLIC HEALTH REFERRAL NEEDED?NO HAS THE PATIENT BEEN EDUCATED REGARDING HIS/HER PLAN OF CARE?YES HAS THE PATIENT BEEN EDUCATED REGARDING PAIN, THE RISK FOR PAIN, THE IMPORTANCE OF EFFECTIVE PAIN MANAGEMENT, AND THE PAIN ASSESSMENT PROCESS?YES LATEX QUESTIONNAIRE LATEX ALLERGY : HAVE YOU EVER DEVELOPED ANY TYPE OF REACTION AFTER HANDLING LATEX PRODUCTS SUCH RUBBER GLOVES, CONDOMS, DIAPHRAGMS, BALLOONS, SOCKS, OR UNDERWEAR?NO ADHESIVE SENSITIVITY LATEX ALLERGY : HAVE YOU EVER DEVELOPED ANY TYPE OF REACTION DURING OR AFTER DENTAL APPOINTMENT, VAGINAL/RECTAL EXAMINATION, SURGICAL PROCEDURE, OR ANY OTHER EXPOSURE?NO LATEX RISK : HAVE YOU EVER HAD ANY DIFFICULTY BREATHING OR HIVES AFTER EATING OR HANDLING ANY FRUITS, OR VEGETABLES; SUCH KIWI, BANANAS, STONE FRUITS, OR CHESTNUTSNO LATEX RISK : DO YOU HAVE A PREVIOUS PERSONAL HISTORY OF MORE THAN NINE SURGERIES, SPINA BIFIDA, OR REPEATED CATHERIZATIONS? NO LATEX RISK : ARE YOU FREQUENTLY EXPOSED TO LATEX PRODUCTS IN YOUR OCCUPATION?NO DATE ASKED : 12/02/2019 CAFFEINE CAFFEINE USE?NO ADVANCE DIRECTIVE ADVANCE DIRECTIVE DISCUSSED WITH PATIENT:YES PT. HAS HCP, DAUGHTER DARIO PICKETT [phone], DAUGHTER DEANDRA BECKHAM [phone] LANGUAGE LANGUAGES SPOKEN:GERMAN NEW PATIENT PAIN DIARY TODAY'S VISITNOTES 12/02/2019 PATIENT DESCRIBES PAIN :HAVE IT ALL THE TIME, THROBBING, SHOOTING FROM 0-10, WHAT LEVEL IS YOUR PAIN TODAY?7 ALCOHOL SCREENING DID YOU HAVE A DRINK CONTAINING ALCOHOL IN THE PAST YEAR?NO POINTS0 INTERPRETATIONNEGATIVE RECREATIONAL DRUG USE DRUG USE?NO LEARNING BARRIERS / SPECIAL NEEDS CHANGE FROM LAST VISIT?NO BARRIERS TO LEARNING?NO HEARING IMPAIRED?NO VISION IMPAIRED?YES :CORRECTIVE LENSES COGNITIVELY IMPAIRED?NO READINESS TO LEARN?YES LEARNING PREFERENCES?NO LEARNING CAPABILITIES PRESENT?YES EMOTIONAL BARRIERS?NO SPECIAL DEVICES?YES :CANE, WALKER, OTHER WALKING CANE HIDE PULLER NEEDED?NO HOSPITALIZATION/MAJOR DIAGNOSTIC PROCEDURE I&D MRSA ABDOMEN ABSCESS 05/2010 ACUTE DYSPNEA/HYPOXIA ([facility] PRIOR NORMAL MEAL)-ELISA AWOKE 530 2 WANDA, THEN IMMEDIATELY CAUSED COUGH/DYSPNEA-FELT ASPIRATION PN, IN ED RECEIVED ALBUTEROL NEB X 3 THEN WENT INTO AFIB C RVR, CONVERTED IN ED C IV AMIODARONE 150 X 2, -BLE DVT US,- CXR X 2 (09/09, 09/09-09/11/14 A. FIB WITH SURGERIES SURGERIES REVIEW OF SYSTEMS REVIEWED BY: PROVIDER: VIOLETA CRAWFORD . CONSTITUTIONAL: ANY CHANGE IN YOUR MEDICAL CONDITION? NO . CHILLS NO . FEVER NO . INFECTION: DO YOU HAVE NEW INFECTIONS? NO . DO YOU HAVE HISTORY OF MRSA? YES . MUSCULOSKELETAL: ANY NEW PATTERNS OF PAIN OR NUMBNESS? YES, STATES INCREASED PAIN . GASTROENTEROLOGY: ANY NEW CHANGE IN BOWEL CONTROL? NO . GENITOURINARY: ANY NEW CHANGE IN BLADDER CONTROL? NO . IS THERE A CHANCE YOU COULD BE ? NO . HEMATOLOGY/LYMPH: DO YOU TAKE ANY BLOOD THINNERS? (FOR EXAMPLE- COUMADIN, PLAVIX, AGGRENOX, PLATEL, PRADAXA, OR XARELTO) YES, XARELTO . WHEN WAS YOUR LAST DOSE? DATE: TIME: . NEUROLOGY: HAVE YOU FALLEN IN THE PAST 12 MONTHS? NO . ANY NEW EXTREMITY NUMBNESS OR WEAKNESS? YES, NUMBNESS TO LEFT LEG . CARDIOLOGY: DO YOU HAVE A PACEMAKER OR DEFIBRILLATOR? NO . RESPIRATORY: HAVE YOU BEEN SICK IN THE PAST WEEK? NO . FEVER NO . FLU LIKE SYMPTOMS? NO . COUGH NO . INTEGUMENTARY: DO YOU HAVE ANY RASHES OR OPEN SORES? NO . ALLERGIC/IMMUNO: ARE YOU ALLERGIC TO IV DYE? NO . ANY NEW ALLERGIES? NO . PSYCHIATRIC: DO YOU HAVE THOUGHTS OF HURTING YOURSELF OR SOMEONE ELSE? NO . ARE YOU ABUSED, NEGLECTED, OR IN AN UNSAFE ENVIRONMENT? NO . ENDOCRINOLOGY: ARE YOU DIABETIC? NO . OTHER: DO YOU NEED ANY PRESCRIPTIONS? NO . IF YES, PLEASE LIST: ____ . ANY NEW PROBLEMS WITH YOUR MEDICATIONS? NO . WHEN DID YOU LAST EAT? ____ . WHEN DID YOU LAST DRINK? ____ . WHAT DID YOU LAST DRINK? ____ . NAME OF PERSON DRIVING YOU HOME? ____ . DO YOU HAVE ANY OTHER QUESTIONS OR CONCERNS NO . VITAL SIGNS WT 266.6 LBS, HT 63 IN, BMI 47.22 INDEX, BP 182/72 MM HG, REPEAT BP 148/86 MANUAL, HR 89 /MIN, RR 18 /MIN, TEMP 97.5 F, OXYGEN SAT % 98%, SAFE IN ENV? (Y/N) YES, NA INITIALS AW 0901, REVIEWED BY: KULDIP. EXAMINATION GENERAL EXAMINATION: GENERAL AWAKE,ALERT ,PLEASANT . PSYCH AFFECT NORMAL . LUNGS: LUNG DAVID ARE CLEAR TO AUSCULTATION BILATERALLY. GOOD MOVEMENT OF AIR . HEART: S1, S2 IN A REGULAR RATE AND RHYTHM. NO SIGNIFICANT MURMURS, RUBS OR GALLOPS NOTED . MUSCULOSKELETAL:MILD WEAKNESS NOTED OVER LEFT LEG . LUMBAR: PALPATION: + FOR PAIN OVER L/S SPINE. + FOR PAIN OVER L/S PARASPINALS SLE: POSITIVE OVER LEFT LEG AT 45. ASSESSMENTS INTERVERTEBRAL DISC DISORDER WITH RADICULOPATHY OF LUMBAR REGION - M51.16 (PRIMARY) TREATMENT INTERVERTEBRAL DISC DISORDER WITH RADICULOPATHY OF LUMBAR REGION NOTES: L5-S1 LESI WITH IV SEDATION. PROCEDURE CODES FA211 ESTABILISHED PATIENT [facility] CHARGE DISPOSITION & COMMUNICATION FOLLOW UP POST (REASON: L5-S1 LESI WITH IV SEDATION) ELECTRONICALLY SIGNED BY YVETTE HINOJOSA ON 12/02/2019 AT 09:50 AM EDT ADDENDUM: 12/02/2019 10:10 AM JENNIFER URRUTIA > REVIEWED INFORMATION ON LUMBAR EPIDURAL STEROID INJECTION PROCEDURE WITH PATIENT. ALSO REVIEWED PRE-PROCEDURE INSTRUCTIONS. PATIENT VERBALIZED AN UNDERSTANDING. DISCLAIMER : THIS IS A VISIT SUMMARY EXTRACTED FROM THE [facility] CHART. IT IS NOT A COPY OF THE [facility] PROGRESS NOTE. VINCENT
== END ==
LOC: M PAIN 09:00
PROVIDERS: ATTEND Nurse Practitioner Family
DX: M51.16 Intervertebral disc disorders with radiculopathy, lumbar region (principal); I10 Essential (primary) hypertension; Z79.891 Long term (current) use of opiate analgesic; Z79.899 Other long term (current) drug therapy; Z88.0 Allergy status to penicillin; Z88.1 Allergy status to other antibiotic agents; Z88.5 Allergy status to narcotic agent; Z88.8 Allergy status to other drugs, medicaments and biological substances; Z91.048 Other nonmedicinal substance allergy status; Z98.84 Bariatric surgery status; Z87.891 Personal history of nicotine dependence; Z95.828 Presence of other vascular implants and grafts

== ENCOUNTER → 2019-12-17 | Outpatient (CLI) | payer MEDICARE, MEDICAID ==
[~2019-12-17] MED LIST changes: +OXYC-1 PO; -OXYC15TA76 PO
--- NOTE | 2019-12-23 00:59 | ECWPNPC ---
PATIENT NAME: NISHA MUNSON : 1955 GENDER: FEMALE VISIT DATE: 12/17/2019 DISCHARGE DATE: 12/17/19 1005 VISIT LOCKED DATE TIME: PHYSICIAN: GALI LEWIS MD PHYSICIAN PAGER NO: [phone] RESOURCE: GALI LEWIS MD REASON FOR APPOINTMENT 1. R [id number] LESI WITH IV SEDATION- PHYSICAL VISIT HISTORY OF PRESENT ILLNESS HISTORY OF PRESENT ILLNESS: PAIN THE PATIENT DESCRIBES THE PAIN... 64 YEAR OLD FEMALE PATIENT WITH A HISTORY OF CHRONIC LOW BACK AND LEG PAIN. THE PATIENT DESCRIBES HER PAIN ACHING, CONSTANT, AND STABBING WITH A PAIN SCORE OF 6-10/10 DEPENDING ON PHYSICAL ACTIVITY. THE PATIENT STATES HER PAIN BEGINS IN HER LOW BACK AND RADIATES DOWN MAINLY HER LEFT LEG. THE PATIENT RECEIVED A LUMBAR EPIDURAL ON 09/15/2019 THAT SHE SAYS PROVIDED HER WITH ADEQUATE PAIN RELIEF FOR A COUPLE OF MONTHS. THE PATIENT SAYS HER PAIN HAS BEEN INCREASING OVER THE LAST MONTH AND SHE IS UNABLE TO FUNCTION DUE TO THE PAIN. THE PATIENT DENIES UNEXPLAINED WEIGHT LOSS, FEVER, CHILLS, NEW CHANGES IN HER URINARY OR BOWEL CONTROL. FALL RISK SCREENING: SCREENING :NO FALLS REPORTED IN THE LAST YEAR CURRENT MEDICATIONS TAKING CLARITIN 10 MG TABLET 1 TABLET ORALLY ONCE A DAY TAKING VITAMIN B12 1000 MCG SC . SC EVERY 8 WEEKS TAKING PROAIR HFA 108 (90 BASE) MCG/ACT AEROSOL SOLUTION 2 PUFFS NEEDED INHALATION QID PRN TAKING FERROUS GLUCONATE 325 MG CAPSULE 1 TABLET ORALLY TWICE DAILY TAKING VITAMIN D 5000 TABLET 1 TABLET ORALLY TID TAKING CALCIUM 600+D HIGH POTENCY 600-400 MG-UNIT TABLET 1 TABLET WITH FOOD ORALLY TWICE A DAY TAKING NYSTATIN [id number] UNITS/G TOPICAL OINTMENT . APPLIED TOPICALLY DIRECTED BID X 10 DAYS C FLARES TAKING XARELTO 20 MG TABLET 1 TAB(S) ORAL AT DINNER TIME TAKING RECLAST 5 MG/100ML SOLUTION DIRECTED INTRAVENOUS TAKING COMPRESSION STOCKINGS 30-40 MMHG KNEE HIGH I87.2 DAILY TAKING TYLENOL 8 HOUR 650 MG TABLET EXTENDED RELEASE 2 TABLETS NEEDED ORALLY AKES 500 MG TAKING OXYCODONE-ACETAMINOPHEN 10-325 MG TABLET 1 TABLET NEEDED ORALLY EVERY 8 HRS TAKING TIZANIDINE HCL 4 MG CAPSULE 1 CAPSULE NEEDED ORALLY THREE TIMES A DAY, NOTES: NOT CURRENTLY TAKING - W/C FIGHTING TAKING SUCRALFATE 1 GM TABLET 1 TABLET ON AN EMPTY STOMACH ORALLY TWICE A DAY TAKING PANTOPRAZOLE SODIUM 40 TABLET DELAYED RELEASE 1 TABLET ORALLY BID NOT-TAKING AMLODIPINE BESYLATE 2.5 MG TABLET 1 TABLET IF BP>130/80 ORALLY ONCE A DAY MEDICATION LIST REVIEWED AND RECONCILED WITH THE PATIENT PAST MEDICAL HISTORY 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 12/2008-SETTER HYPERTENSION ALLERGIC RHINITIS H/O IMMUNOTHERAPY X >10Y-STOPPED 2 INADEQUATE RESPONSE NONALCOHOLIC FATTY LIVER DISEASE C MILD CHRONIC ELEVATED ALP OBESITY, MORBID STATUS POST R-Y GASTRIC BYPASS 06/2006, 12/29/15-MARYJANE VITAMIN D DEFICIENCY ANEMIA, IRON/FE DEFICIENCY HISTORY OF RIGHT LOWER EXTREMITY DVT X2 IMPAIRED FASTING GLUCOSE HISTORY OF NICOTINE ADDICTION-SMOKED 7 CIGS QD X 10Y, QUIT AT 28 YO-04/2012 FEV1 2.3L (99%)/RATIO 108% GERD-11/2014 NORMAL EGD-REINDL TUBULAR ADENOMA BY 11/2014 COLONOSCOPY-REINDL ATRIAL FIBRILLATION, [id number] POD 2 TKR 05/2015- CONVERTED TO SR C CARDIOVERSION LISA, MODERATE-07/2017 HST JLUIS 17 C SAO2 TO 88% HO MRSA ABSCESS- HAS BEEN TREATED AND TESTED NEGATIVE LUMBAR DJD-11/2017 MRI L5/S1 BULGE EXTENDING INTO B NF DISPLACING R S1 ROOT, MILD L4/5 CCS R T5 ZOSTER RXED C VALCYC/PRED 05/2018 IMPINGEMENT AND SPURRING LEFT SHOULDER ALLERGIES PENICILLIN (FOR ALLERGIES USE ONLY): RASH - ALLERGY ERYTHROMYCIN: RASH - ALLERGY DOXYCYCLINE HYCLATE: RASH - ALLERGY TALWIN: RASH HIVES - ALLERGY NOVACAINE (PT NOTES SHE WAS OK WITH RECENT LIDOCAI: SWELLING - ALLERGY BACTRIM: RASH - ALLERGY TETRACYCLINE HCL: HIVES - ALLERGY VICODIN: ITCH - ALLERGY SINGULAIR: GERD - SIDE EFFECTS CODEINE SULFATE: UNCONSCIOUSNESS - ALLERGY GABAPENTIN: IRRITABILITY/AGGRESSIVENESS - SIDE EFFECTS LYRICA: SHAKING /FORGETFULNESS AMITRIPTYLINE HCL: MEMORARY ISSUES - SIDE EFFECTS ADHESIVE SURGICAL HISTORY I&D ABDOMEN ABSCESS 05/2010 OPEN GASTRIC BYPASS 2007 PARTIAL HYSTERECTOMY 2008 RIGHT SHOULDER SURGERY (X2) 2008 AND 2009 APPENDECTOMY AGE 9 RIGHT WRIST SURGERY X 2 1980S THROAT TUMOR AGE 16 SURGERY FOR DEVIATED SEPTUM AGE 18 AD [id number] 02/2014 R TKR- DR. HUYNH-[place] 06/20/15 GASTRIC BYPASS REVISION-MARYJANE 12/29/15 L TKR-DR. HUYNH-SOS 01/01/17 ROBOTIC VENTRAL HERNIA REPAIR 2 SURGICAL VENTRAL HERNIA-MARYJANE 05/16/17 HAS IVC FILTER IMPLANTED CARDIAC MONTIOR 06/03/19 FAMILY HISTORY FATHER: 66 YRS, KIDNEY FAILURE MOTHER: 78 YRS, HTN, PACEMAKER, DIAGNOSED WITH HYPERTENSION SIBLINGS: ALIVE, DIABETES, HYPERTENSION MATERNAL GRAND FATHER: , BRAIN CANCER MATERNAL GRAND MOTHER: , COLON CARCINOMA 1 SON(S) , 2 DAUGHTER(S) . MGF AND COUSIN HAD COLON CA.\\\\NDAUGHTERS-CHRONIC BACK PAIN\\\\NSON-HAD THYROIDECTOMY--UNSURE OF DIAGNOSIS. SOCIAL HISTORY GENERAL: TOBACCO USE ARE YOU A:FORMER SMOKER HOW LONG HAS IT BEEN SINCE YOU LAST SMOKED?> 10 YEARS LATEX QUESTIONNAIRE LATEX ALLERGY : HAVE YOU EVER DEVELOPED ANY TYPE OF REACTION AFTER HANDLING LATEX PRODUCTS SUCH RUBBER GLOVES, CONDOMS, DIAPHRAGMS, BALLOONS, SOCKS, OR UNDERWEAR?NO ADHESIVE SENSITIVITY LATEX ALLERGY : HAVE YOU EVER DEVELOPED ANY TYPE OF REACTION DURING OR AFTER DENTAL APPOINTMENT, VAGINAL/RECTAL EXAMINATION, SURGICAL PROCEDURE, OR ANY OTHER EXPOSURE?NO DATE ASKED : 12/02/2019 LATEX RISK : HAVE YOU EVER HAD ANY DIFFICULTY BREATHING OR HIVES AFTER EATING OR HANDLING ANY FRUITS, OR VEGETABLES; SUCH KIWI, BANANAS, STONE FRUITS, OR CHESTNUTSNO LATEX RISK : DO YOU HAVE A PREVIOUS PERSONAL HISTORY OF MORE THAN NINE SURGERIES, SPINA BIFIDA, OR REPEATED CATHERIZATIONS? NO LATEX RISK : ARE YOU FREQUENTLY EXPOSED TO LATEX PRODUCTS IN YOUR OCCUPATION?NO BMI CARE GOAL FOLLOW-UP ABOVE NORMAL BMI [facility] REGARDING DIET ALCOHOL SCREENING DID YOU HAVE A DRINK CONTAINING ALCOHOL IN THE PAST YEAR?NO POINTS0 INTERPRETATIONNEGATIVE RECREATIONAL DRUG USE DRUG USE?NO CAFFEINE CAFFEINE USE?NO SEXUAL HX HAD SEX IN THE LAST 12 MONTHS (VAGINAL, ORAL, OR ANAL)?NO LMP:HYSTER HAVE YOU EVER HAD AN STD?NO HIV / HEP-C SCREENING HIV TEST OFFERED TO PATIENT:YES DATE OFFERED:11/05/2017 TEST ACCEPTED:NO HEP-C TEST OFFERED TO PATIENT:YES DATE OFFERED:11/22/2016 REASON:PATIENT DECLINED TEST ACCEPTED:NO REASON:PATIENT DECLINED BROCHURE PROVIDED TO PATIENTYES MOSQUE [id number] CAODAISM LANGUAGE LANGUAGES SPOKEN:PORTUGUESE EDUCATION LEVEL OF EDUCATION:NOT FINISHED COLLEGE LEARNING BARRIERS / SPECIAL NEEDS CHANGE FROM LAST VISIT?NO BARRIERS TO LEARNING?NO HEARING IMPAIRED?NO VISION IMPAIRED?YES COGNITIVELY IMPAIRED?NO :CORRECTIVE LENSES READINESS TO LEARN?YES LEARNING PREFERENCES?NO LEARNING CAPABILITIES PRESENT?YES EMOTIONAL BARRIERS?NO SPECIAL DEVICES?YES :CANE, WALKER, OTHER WALKING CANE LOBBY PORTER 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 DIET: REGULAR. EXERCISE: NO REGULAR EXERCISE, SMALL WALKS. MARITAL STATUS: . NEW PATIENT PAIN DIARY TODAY'S VISITNOTES 12/17/2019 PATIENT DESCRIBES PAIN :ACHING, HAVE IT ALL THE TIME, STABBING FROM 0-10, WHAT LEVEL IS YOUR PAIN TODAY?8 PRECIPITATING FACTORS EVERYTHING, STANDING ALLEVIATING FACTORS NOTHING, OXY IMPACT ON FUNCTION YES PAIN CLINIC PFS, CLERGY, PUBLIC HEALTH REFERRALS PFS REFERRAL NEEDED?NO CLERGY REFERRAL NEEDED?NO PUBLIC HEALTH REFERRAL NEEDED?NO HAS THE PATIENT BEEN EDUCATED REGARDING HIS/HER PLAN OF CARE?YES HAS THE PATIENT BEEN EDUCATED REGARDING PAIN, THE RISK FOR PAIN, THE IMPORTANCE OF EFFECTIVE PAIN MANAGEMENT, AND THE PAIN ASSESSMENT PROCESS?YES ADVANCE DIRECTIVE ADVANCE DIRECTIVE DISCUSSED WITH PATIENT:YES PT. HAS HCP, DAUGHTER DARIO MCKEON-JOSH [phone], DAUGHTER DEANDRA BECKHAM [phone] HOSPITALIZATION/MAJOR DIAGNOSTIC PROCEDURE I&D MRSA ABDOMEN ABSCESS 05/2010 ACUTE DYSPNEA/HYPOXIA ([facility] PRIOR NORMAL MEAL)-ELISA AWOKE 530 2 WANDA, THEN IMMEDIATELY CAUSED COUGH/DYSPNEA-FELT ASPIRATION PN, IN ED RECEIVED ALBUTEROL NEB X 3 THEN WENT INTO AFIB C RVR, CONVERTED IN ED C IV AMIODARONE 150 X 2, -BLE DVT US,- CXR X 2 (09/09, 09/09-09/11/14 A. FIB WITH SURGERIES SURGERIES REVIEW OF SYSTEMS REVIEWED BY: PROVIDER: GALI LEWIS MD . CONSTITUTIONAL: ANY CHANGE IN YOUR MEDICAL CONDITION? NO . CHILLS NO . FEVER NO . INFECTION: DO YOU HAVE NEW INFECTIONS? NO . DO YOU HAVE HISTORY OF MRSA? NO . MUSCULOSKELETAL: ANY NEW PATTERNS OF PAIN OR NUMBNESS? LBP IS WORSE . GASTROENTEROLOGY: ANY NEW CHANGE IN BOWEL CONTROL? NO . GENITOURINARY: ANY NEW CHANGE IN BLADDER CONTROL? NO . IS THERE A CHANCE YOU COULD BE ? NO . HEMATOLOGY/LYMPH: DO YOU TAKE ANY BLOOD THINNERS? (FOR EXAMPLE- COUMADIN, PLAVIX, AGGRENOX, PLATEL, PRADAXA, OR XARELTO) XARELTO . WHEN WAS YOUR LAST DOSE? DATE: TIME: . NEUROLOGY: HAVE YOU FALLEN IN THE PAST 12 MONTHS? NO . ANY NEW EXTREMITY NUMBNESS OR WEAKNESS? NO . CARDIOLOGY: DO YOU HAVE A PACEMAKER OR DEFIBRILLATOR? NO . RESPIRATORY: HAVE YOU BEEN SICK IN THE PAST WEEK? NO . FEVER NO . FLU LIKE SYMPTOMS? NO . COUGH NO . INTEGUMENTARY: DO YOU HAVE ANY RASHES OR OPEN SORES? YES, BACK BX 2 WEEKS AGO HEALING . ALLERGIC/IMMUNO: ARE YOU ALLERGIC TO IV DYE? NO . ANY NEW ALLERGIES? NO . PSYCHIATRIC: DO YOU HAVE THOUGHTS OF HURTING YOURSELF OR SOMEONE ELSE? NO . ARE YOU ABUSED, NEGLECTED, OR IN AN UNSAFE ENVIRONMENT? NO . ENDOCRINOLOGY: ARE YOU DIABETIC? NO . OTHER: DO YOU NEED ANY PRESCRIPTIONS? NO . IF YES, PLEASE LIST: ____ . ANY NEW PROBLEMS WITH YOUR MEDICATIONS? NO . WHEN DID YOU LAST EAT? ____ . WHEN DID YOU LAST DRINK? ____ . WHAT DID YOU LAST DRINK? ____ . NAME OF PERSON DRIVING YOU HOME? ____ . DO YOU HAVE ANY OTHER QUESTIONS OR CONCERNS NO . VITAL SIGNS WT 265 LBS, HT 63 IN, BMI 46.94 INDEX, BP 140/80 MM HG, HR 100 /MIN, RR 16 /MIN, TEMP 97.6 F, OXYGEN SAT % 100, REVIEWED BY: TASH. EXAMINATION GENERAL EXAMINATION: PATIENT IS ALERT O X 3 AND COOPERATIVE. LUNGS CLEAR, TO AUSCULTATION. HEART: NO MURMURS OR GALLOPS; FACIAL CRANIAL NERVES ARE GROSSLY NORMAL. GOOD SYMMETRY OF FACIAL MUSCLE MOVEMENT. NORMAL VISUAL DAVID. LEFT LEG IS WEAKER AT EXTENSION AND FLEXION. STRAIGHT LEG RAISE OF THE LEFT LEG IS POSITIVE AT 15 DEGREES FOR RADICULOPATHY. PATIENT IS USING A CANE AND IS LIMPING FROM THE LEFT LEG. THE PATIENT IS VERY UNCOMFORTABLE DUE TO THE PAIN. MRI OF THE LUMBAR SPINE DONE ON 12/21/2017 SHOWS BULGING DISCS AT L4-L5 AND L5-S1 LEVELS. ASSESSMENTS INTERVERTEBRAL DISC DISORDERS WITH RADICULOPATHY, LUMBAR REGION - M51.16 (PRIMARY) INTERVERTEBRAL DISC DISORDERS WITH RADICULOPATHY, LUMBOSACRAL REGION - M51.17 TREATMENT INTERVERTEBRAL DISC DISORDERS WITH RADICULOPATHY, LUMBAR REGION CLINICAL NOTES: WE DISCUSSED SEVERAL ISSUES WITH MS. MUNSON'S PAIN MANAGEMENT CASE. THE PATIENT IS USING OXYCODONE 10-325 MG THAT IS NOT HELPING WITH MUCH PAIN RELIEF FOR HER AT THE MOMENT. DUE TO THE LUMBAR RADICULOPATHY AND SEVERE DISCOMFORT, I WOULD LIKE TO MOVE FORWARD WITH A LUMBAR EPIDURAL STEROID INJECTION AT THIS TIME. THE PATIENT WOULD LIKE TO MOVE FORWARD WITH IV SEDATION DUE TO DISCOMFORT, PAIN, AND ANXIETY ASSOCIATED WITH THE PROCEDURE. WE DISCUSSED THE BENEFITS, RISKS, AND ALTERNATIVES OF THE INJECTION AND THE PATIENT WOULD LIKE TO PROCEED. I AM LOOKING FOR LONG LASTING PAIN RELIEF FROM THIS INJECTION FOR THE PATIENT. THE PATIENT WILL FOLLOW UP IN SEVERAL WEEKS AFTER HER INJECTION. WE DISCUSSED THE CONCERNS OF STEROIDS POTENTIALLY CAUSING IMMUNOSUPPRESSION SHORT-TERM AND FURTHER COMPLICATIONS IF THEY COME IN CONTACT WITH COVID-19. THE PATIENT UNDERSTANDS, WOULD LIKE TO PROCEED WITH THE PROCEDURE, AND AGREES SHE WILL BE CAREFUL BY SELF ISOLATING FOR A WEEK OR MORE. THE PATIENT WILL NEED 1,000 CC OF IV FLUIDS BEFORE HER PROCEDURE DUE TO HISTORY OF VASOVAGAL SYNCOPE. THE PATIENT WAS INSTRUCTED TO STOP XERALTO 3 DAYS BEFORE HER PROCEDURE. INSTRUCTIONS WERE GIVEN, QUESTIONS WERE ANSWERED, PATIENT REPORTS UNDERSTANDING AND AGREES WITH THE PLAN. I, JIAN JORDAN, DOCUMENTED THE ABOVE INFORMATION ACTING A SCRIBE FOR DR. LEWIS. I HAVE REVIEWED THE ABOVE DOCUMENT, WRITTEN BY JIAN JORDAN SCRIBDylon AND I VERIFY THAT IT IS ACCURATE. . PROCEDURE CODES FA211 ESTABILISHED PATIENT [facility] FACILITY CHARGE [id number] CURRENT MEDS W/DOSAGES DOCUMENTED [id number] PAIN ASSESS POS TOOL F/U PLAN DOC DISPOSITION & COMMUNICATION FOLLOW UP 1 WEEK (REASON: LESI W/ IV SEDATE, (ALREADY AUTHED)) ELECTRONICALLY SIGNED BY GALI LEWIS MD, MD ON 12/22/2019 AT 10:02 AM EDT DISCLAIMER : THIS IS A VISIT SUMMARY EXTRACTED FROM THE [employer] CHART. IT IS NOT A COPY OF THE [employer] PROGRESS NOTE. MTDD
== END ==
LOC: M PAIN 09:15
PROVIDERS: ATTEND Anesthesiology
DX: M51.16 Intervertebral disc disorders with radiculopathy, lumbar region (principal); M51.17 Intervertebral disc disorders with radiculopathy, lumbosacral region; I10 Essential (primary) hypertension; Z79.891 Long term (current) use of opiate analgesic; Z79.899 Other long term (current) drug therapy; Z88.0 Allergy status to penicillin; Z88.1 Allergy status to other antibiotic agents; Z88.5 Allergy status to narcotic agent; Z88.8 Allergy status to other drugs, medicaments and biological substances; Z91.048 Other nonmedicinal substance allergy status; Z87.891 Personal history of nicotine dependence

== ENCOUNTER → 2019-12-28 | Outpatient (CLI) | payer MEDICARE, MEDICAID | LOC: M LABSMTC 11:05 | PROVIDERS: ATTEND Anesthesiology | DX: Z11.59 Encounter for screening for other viral diseases (principal) ==

== ENCOUNTER → 2019-12-31 | Outpatient (CLI) | payer MEDICARE, MEDICAID ==
[~2019-12-31] MED LIST changes: +ISOVUE-M 300 61% 15ML VIAL As Ordered ONE; +LIDOCAINE 1% SDV 30ML VIAL As Ordered ONE; +MIDAZOLAM INJ 2MG/2ML VIAL (J2250 PER 1MG) As Ordered ONE; +dexameTHASONE 10MG/1ML VIAL PRES.FREE (J1100 PER 1MG) As Ordered ONE; +fentaNYL 100 MCG/2 ML INJECTION (J3010) As Ordered ONE
--- NOTE | 2019-12-31 12:01 | REP ---
Partial lumbar spine series: Three views . History: Injection procedure for pain. 68 seconds of fluoroscopy time is reported. Findings: A sequence of three fluoroscopically obtained last image hold procedural spot radiographs of the lumbar spine document needle position and contrast injection associated with injection procedure. Electronically Signed by Kenton Mir MD 12/31/2019 11:52 A
--- NOTE | 2020-01-02 00:36 | ECWPNPC ---
PATIENT NAME: NISHA MUNSON : 1955 GENDER: FEMALE VISIT DATE: 12/31/2019 DISCHARGE DATE: 12/31/19 1221 VISIT LOCKED DATE TIME: PHYSICIAN: GALI LEWIS MD PHYSICIAN PAGER NO: [phone] RESOURCE: GALI LEWIS MD REASON FOR APPOINTMENT 1. L4-L5 LESI WITH IV SEDATION HISTORY OF PRESENT ILLNESS HISTORY OF PRESENT ILLNESS: PAIN THE PATIENT DESCRIBES THE PAIN... FALL RISK SCREENING: SCREENING :NO FALLS REPORTED IN THE LAST YEAR CURRENT MEDICATIONS TAKING CLARITIN 10 MG TABLET 1 TABLET ORALLY ONCE A DAY, NOTES: 12/30 6AM TAKING VITAMIN B12 1000 MCG SC . SC EVERY 8 WEEKS, NOTES: 12/30 6A TAKING PROAIR HFA 108 (90 BASE) MCG/ACT AEROSOL SOLUTION 2 PUFFS NEEDED INHALATION QID PRN, NOTES: 2 WEEKS TAKING FERROUS GLUCONATE 325 MG CAPSULE 1 TABLET ORALLY TWICE DAILY, NOTES: 12/29 7P TAKING VITAMIN D 5000 TABLET 1 TABLET ORALLY TID, NOTES: 12/30 6A TAKING CALCIUM 600+D HIGH POTENCY 600-400 MG-UNIT TABLET 1 TABLET WITH FOOD ORALLY TWICE A DAY, NOTES: 12/29 7P TAKING NYSTATIN 814117 UNITS/G TOPICAL OINTMENT . APPLIED TOPICALLY DIRECTED BID X 10 DAYS C FLARES, NOTES: 1 MONTH TAKING XARELTO 20 MG TABLET 1 TAB(S) ORAL AT DINNER TIME, NOTES: 12/25 6PM TAKING RECLAST 5 MG/100ML SOLUTION DIRECTED INTRAVENOUS , NOTES: JUNE 2019 TAKING COMPRESSION STOCKINGS 30-40 MMHG KNEE HIGH I87.2 DAILY TAKING TYLENOL 8 HOUR 650 MG TABLET EXTENDED RELEASE 2 TABLETS NEEDED ORALLY AKES 500 MG, NOTES: 12/29 7P TAKING OXYCODONE-ACETAMINOPHEN 10-325 MG TABLET 1 TABLET NEEDED ORALLY EVERY 8 HRS, NOTES: 12/29 2PM TAKING SUCRALFATE 1 GM TABLET 1 TABLET ON AN EMPTY STOMACH ORALLY THREE TIMES DAILY, NOTES: 12/30 6AM TAKING PANTOPRAZOLE SODIUM 40 TABLET DELAYED RELEASE 1 TABLET ORALLY BID, NOTES: 12/30 6AM TAKING METOPROLOL SUCCINATE 25 MG CAPSULE ER 24 HOUR SPRINKLE 1 CAPSULE ORALLY ONCE A DAY FOR SBP>140, NOTES: NOT TAKING YET NOT-TAKING TIZANIDINE HCL 4 MG CAPSULE 1 CAPSULE NEEDED ORALLY THREE TIMES A DAY, NOTES: NOT CURRENTLY TAKING - W/C FIGHTING NOT-TAKING AMLODIPINE BESYLATE 2.5 MG TABLET 1 TABLET IF BP>130/80 ORALLY ONCE A DAY MEDICATION LIST REVIEWED AND RECONCILED WITH THE PATIENT PAST MEDICAL HISTORY 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 12/2008-SETTER HYPERTENSION ALLERGIC RHINITIS H/O IMMUNOTHERAPY X >10Y-STOPPED 2 INADEQUATE RESPONSE NONALCOHOLIC FATTY LIVER DISEASE C MILD CHRONIC ELEVATED ALP OBESITY, MORBID STATUS POST R-Y GASTRIC BYPASS 06/2006, 12/29/15-MARYJANE VITAMIN D DEFICIENCY ANEMIA, IRON/FE DEFICIENCY HISTORY OF RIGHT LOWER EXTREMITY DVT X2 IMPAIRED FASTING GLUCOSE HISTORY OF NICOTINE ADDICTION-SMOKED 7 CIGS QD X 10Y, QUIT AT 28 YO-04/2012 FEV1 2.3L (99%)/RATIO 108% GERD-11/2014 NORMAL EGD-REINDL TUBULAR ADENOMA BY 11/2014 COLONOSCOPY-REINDL ATRIAL FIBRILLATION, [id number] POD 2 TKR 05/2015- CONVERTED TO SR C CARDIOVERSION LISA, MODERATE-07/2017 HST JLUIS 17 C SAO2 TO 88% HO MRSA ABSCESS- HAS BEEN TREATED AND TESTED NEGATIVE LUMBAR DJD-11/2017 MRI L5/S1 BULGE EXTENDING INTO B NF DISPLACING R S1 ROOT, MILD L4/5 CCS R T5 ZOSTER RXED C VALCYC/PRED 05/2018 IMPINGEMENT AND SPURRING LEFT SHOULDER ALLERGIES PENICILLIN (FOR ALLERGIES USE ONLY): RASH - ALLERGY ERYTHROMYCIN: RASH - ALLERGY DOXYCYCLINE HYCLATE: RASH - ALLERGY TALWIN: RASH HIVES - ALLERGY NOVACAINE (PT NOTES SHE WAS OK WITH RECENT LIDOCAI: SWELLING - ALLERGY BACTRIM: RASH - ALLERGY TETRACYCLINE HCL: HIVES - ALLERGY VICODIN: ITCH - ALLERGY SINGULAIR: GERD - SIDE EFFECTS CODEINE SULFATE: UNCONSCIOUSNESS - ALLERGY GABAPENTIN: IRRITABILITY/AGGRESSIVENESS - SIDE EFFECTS LYRICA: SHAKING /FORGETFULNESS AMITRIPTYLINE HCL: MEMORARY ISSUES - SIDE EFFECTS ADHESIVE SURGICAL HISTORY I&D ABDOMEN ABSCESS 05/2010 OPEN GASTRIC BYPASS 2007 PARTIAL HYSTERECTOMY 2008 RIGHT SHOULDER SURGERY (X2) 2007 AND 2008 APPENDECTOMY AGE 9 RIGHT WRIST SURGERY X 2 1980S THROAT TUMOR AGE 16 SURGERY FOR DEVIATED SEPTUM AGE 18 AD [id number] 02/2014 R TKR- DR. HUYNH-[place] 06/20/15 GASTRIC BYPASS REVISION-MARYJANE 12/29/15 L TKR-DR. HUYNH-SOS 01/01/17 ROBOTIC VENTRAL HERNIA REPAIR 2 SURGICAL VENTRAL HERNIA-MARYJANE 05/16/17 HAS IVC FILTER IMPLANTED CARDIAC MONTIOR 06/03/19 FAMILY HISTORY FATHER: 66 YRS, KIDNEY FAILURE MOTHER: 78 YRS, HTN, PACEMAKER, DIAGNOSED WITH HYPERTENSION SIBLINGS: ALIVE, DIABETES, HYPERTENSION MATERNAL GRAND FATHER: , BRAIN CANCER MATERNAL GRAND MOTHER: , COLON CARCINOMA 1 SON(S) , 2 DAUGHTER(S) . MGF AND COUSIN HAD COLON CA.\\\\NDAUGHTERS-CHRONIC BACK PAIN\\\\NSON-HAD THYROIDECTOMY--UNSURE OF DIAGNOSIS. SOCIAL HISTORY GENERAL: TOBACCO USE ARE YOU A:FORMER SMOKER HOW LONG HAS IT BEEN SINCE YOU LAST SMOKED?> 10 YEARS LATEX QUESTIONNAIRE LATEX ALLERGY : HAVE YOU EVER DEVELOPED ANY TYPE OF REACTION AFTER HANDLING LATEX PRODUCTS SUCH RUBBER GLOVES, CONDOMS, DIAPHRAGMS, BALLOONS, SOCKS, OR UNDERWEAR?NO ADHESIVE SENSITIVITY LATEX ALLERGY : HAVE YOU EVER DEVELOPED ANY TYPE OF REACTION DURING OR AFTER DENTAL APPOINTMENT, VAGINAL/RECTAL EXAMINATION, SURGICAL PROCEDURE, OR ANY OTHER EXPOSURE?NO LATEX RISK : HAVE YOU EVER HAD ANY DIFFICULTY BREATHING OR HIVES AFTER EATING OR HANDLING ANY FRUITS, OR VEGETABLES; SUCH KIWI, BANANAS, STONE FRUITS, OR CHESTNUTSNO LATEX RISK : DO YOU HAVE A PREVIOUS PERSONAL HISTORY OF MORE THAN NINE SURGERIES, SPINA BIFIDA, OR REPEATED CATHERIZATIONS? NO LATEX RISK : ARE YOU FREQUENTLY EXPOSED TO LATEX PRODUCTS IN YOUR OCCUPATION?NO DATE ASKED : 12/30/2019 BMI CARE GOAL FOLLOW-UP ABOVE NORMAL BMI FOLLOW-UPLIFESTYLE EDUCATION REGARDING DIET ALCOHOL SCREENING DID YOU HAVE A DRINK CONTAINING ALCOHOL IN THE PAST YEAR?NO POINTS0 INTERPRETATIONNEGATIVE RECREATIONAL DRUG USE DRUG USE?NO CAFFEINE CAFFEINE USE?NO SEXUAL HX HAD SEX IN THE LAST 12 MONTHS (VAGINAL, ORAL, OR ANAL)?NO LMP:HYSTER HAVE YOU EVER HAD AN STD?NO HIV / HEP-C SCREENING HIV TEST OFFERED TO PATIENT:YES DATE OFFERED:11/05/2017 TEST ACCEPTED:NO HEP-C TEST OFFERED TO PATIENT:YES DATE OFFERED:11/22/2016 REASON:PATIENT DECLINED TEST ACCEPTED:NO REASON:PATIENT DECLINED BROCHURE PROVIDED TO PATIENTYES ISLAM [id number] SCIENTOLOGY LANGUAGE LANGUAGES SPOKEN:SOUTH AFRICAN EDUCATION LEVEL OF EDUCATION:NOT FINISHED COLLEGE LEARNING BARRIERS / SPECIAL NEEDS CHANGE FROM LAST VISIT?NO BARRIERS TO LEARNING?NO HEARING IMPAIRED?NO VISION IMPAIRED?YES COGNITIVELY IMPAIRED?NO :CORRECTIVE LENSES READINESS TO LEARN?YES LEARNING PREFERENCES?NO LEARNING CAPABILITIES PRESENT?YES EMOTIONAL BARRIERS?NO SPECIAL DEVICES?YES :CANE, WALKER, OTHER WALKING CANE 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 DIET: REGULAR. EXERCISE: NO REGULAR EXERCISE, SMALL WALKS. MARITAL STATUS: . NEW PATIENT PAIN DIARY TODAY'S VISITNOTES 12/31/2019 PATIENT DESCRIBES PAIN :ACHING, HAVE IT ALL THE TIME, STABBING FROM 0-10, WHAT LEVEL IS YOUR PAIN TODAY?8 PRECIPITATING FACTORS EVERYTHING, STANDING ALLEVIATING FACTORS NOTHING, OXY IMPACT ON FUNCTION YES PAIN CLINIC PFS, CLERGY, PUBLIC HEALTH REFERRALS PFS REFERRAL NEEDED?NO CLERGY REFERRAL NEEDED?NO PUBLIC HEALTH REFERRAL NEEDED?NO WAS THE PROVIDER NOTIFIED OF ANY PERTINENT INFO?YES HAS THE PATIENT BEEN EDUCATED REGARDING HIS/HER PLAN OF CARE?YES HAS THE PATIENT BEEN EDUCATED REGARDING PAIN, THE RISK FOR PAIN, THE IMPORTANCE OF EFFECTIVE PAIN MANAGEMENT, AND THE PAIN ASSESSMENT PROCESS?YES ADVANCE DIRECTIVE ADVANCE DIRECTIVE DISCUSSED WITH PATIENT:YES PT. HAS HCP, DAUGHTER DARIO PICKETT [phone], DAUGHTER DEANDRA BECKHAM [phone] PAT DONE 12/30/2019 DS. HOSPITALIZATION/MAJOR DIAGNOSTIC PROCEDURE I&D MRSA ABDOMEN ABSCESS 05/2010 ACUTE DYSPNEA/HYPOXIA ([facility] PRIOR NORMAL MEAL)-ELISA AWOKE 530 2 WANDA, THEN IMMEDIATELY CAUSED COUGH/DYSPNEA-FELT ASPIRATION PN, IN ED RECEIVED ALBUTEROL NEB X 3 THEN WENT INTO AFIB C RVR, CONVERTED IN ED C IV AMIODARONE 150 X 2, -BLE DVT US,- CXR X 2 (09/09, 09/09-09/11/14 A. FIB WITH SURGERIES SURGERIES REVIEW OF SYSTEMS REVIEWED BY: PROVIDER: GALI LEWIS MD . CONSTITUTIONAL: ANY CHANGE IN YOUR MEDICAL CONDITION? NO . CHILLS NO . FEVER NO . INFECTION: DO YOU HAVE NEW INFECTIONS? NO . DO YOU HAVE HISTORY OF MRSA? NO . MUSCULOSKELETAL: ANY NEW PATTERNS OF PAIN OR NUMBNESS? NO . GASTROENTEROLOGY: ANY NEW CHANGE IN BOWEL CONTROL? NO . GENITOURINARY: ANY NEW CHANGE IN BLADDER CONTROL? NO . IS THERE A CHANCE YOU COULD BE ? NO . HEMATOLOGY/LYMPH: DO YOU TAKE ANY BLOOD THINNERS? (FOR EXAMPLE- COUMADIN, PLAVIX, AGGRENOX, PLATEL, PRADAXA, OR XARELTO) LAST DOSE OF XARELTO 12/26/2019 6PM . WHEN WAS YOUR LAST DOSE? DATE: TIME: . NEUROLOGY: HAVE YOU FALLEN IN THE PAST 12 MONTHS? NO . ANY NEW EXTREMITY NUMBNESS OR WEAKNESS? NO . CARDIOLOGY: DO YOU HAVE A PACEMAKER OR DEFIBRILLATOR? SUPERVISOR PHOSPHATIC FERTILIZER IN PLACE- ABLASION . RESPIRATORY: HAVE YOU BEEN SICK IN THE PAST WEEK? NO . FEVER NO . FLU LIKE SYMPTOMS? NO . COUGH NO . INTEGUMENTARY: DO YOU HAVE ANY RASHES OR OPEN SORES? NO . ALLERGIC/IMMUNO: ARE YOU ALLERGIC TO IV DYE? NO . ANY NEW ALLERGIES? NO . PSYCHIATRIC: DO YOU HAVE THOUGHTS OF HURTING YOURSELF OR SOMEONE ELSE? NO . ARE YOU ABUSED, NEGLECTED, OR IN AN UNSAFE ENVIRONMENT? NO . ENDOCRINOLOGY: ARE YOU DIABETIC? NO . OTHER: DO YOU NEED ANY PRESCRIPTIONS? NO . IF YES, PLEASE LIST: ____ . ANY NEW PROBLEMS WITH YOUR MEDICATIONS? NO . WHEN DID YOU LAST EAT? 12/29 5PM . WHEN DID YOU LAST DRINK? 12/30 8AM . WHAT DID YOU LAST DRINK? WATER . NAME OF PERSON DRIVING YOU HOME? PINEDA DAUGHTER [phone] . DO YOU HAVE ANY OTHER QUESTIONS OR CONCERNS NO . VITAL SIGNS WT 268.0 LBS, HT 63 IN, BMI 47.47 INDEX, BP 160/80 MANUAL, HR 80 /MIN, RR 18 /MIN, TEMP 96.6 F, OXYGEN SAT % 100%, SAFE IN ENV? (Y/N) Y, NA INITIALS AW 0938, REVIEWED BY: UVALDO. ASSESSMENTS LUMBAR SPINAL STENOSIS - M48.061 (PRIMARY) SPONDYLOSIS OF LUMBAR REGION WITHOUT MYELOPATHY OR RADICULOPATHY - M47.816 PROCEDURES PRE PROCEDURE DIAGNOSIS LUMBAR SPINAL STENOSIS, LUMBAR DISC DISORDER WITH RADICULOPATHY POST PROCEDURE DIAGNOSIS LUMBAR SPINAL STENOSIS, LUMBAR DISC DISORDER WITH RADICULOPATHY PROCEDURE LUMBAR EPIDURAL STEROID INJECTION UNDER FLUOROSCOPIC GUIDANCE SURGEON DR. GALI LEWIS RECORDS MANAGEMENT ASSISTANT NONE ANESTHESIA IV SEDATION PRE PROCEDURE NOTE THE PATIENT HAS A HISTORY OF CHRONIC LOW BACK PAIN. I EVALUATED THE PATIENT AND REVIEWED THE CHART. I WENT OVER THE RISKS, ALTERNATIVES, AND BENEFITS ASSOCIATED WITH THIS PROCEDURE. I DISCUSSED WITH THE PATIENT THAT THE USE OF STEROIDS MAY CONTRIBUTE TO IMMUNOSUPPRESSION OF HER BODY AGAINST INFECTIONS SUCH THE CHAVIS VIRUS, COVID-19. SHE IS AWARE OF THE POTENTIAL COMPLICATIONS ASSOCIATED WITH AN INFECTION OF THIS VIRUS INCLUDING . THE PATIENT WOULD LIKE TO PROCEED AND GIVE CONSENT TO PERFORMED THE PROCEDURE. THE PATIENT DENIES UNEXPLAINABLE WEIGHT LOSS, FEVER, CHILLS, OR NEW CHANGES IN URINARY OR BOWEL CONTROL. THE PATIENT IS COVID-19 NEGATIVE. THE PATIENT WOULD LIKE TO MOVE FORWARD WITH IV SEDATION DUE TO DISCOMFORT, PAIN AND ANXIETY ASSOCIATED WITH THE PROCEDURE DESCRIPTION OF PROCEDURE THE PATIENT WAS BROUGHT TO THE PROCEDURE ROOM AND PLACED IN THE PRONE POSITION. PATIENT RECEIVED VERSED 2 MG AND FENTANYL 100 MCG IV IN DIVIDED DOSES. THE LUMBOSACRAL AREA WAS CLEANED WITH BETADINE SOLUTION AND DRAPED ASEPTICALLY. THE PROCEDURE WAS DONE UNDER STERILE CONDITIONS. I CHECKED LATERALITY AND THE LEVEL WHERE THE PROCEDURE WAS GOING TO BE PERFORMED WITH THE PATIENT AND THE SUPPORTING STAFF AT THE MOMENT OF THE TIME OUT IN THE PROCEDURE ROOM. UNDER FLUOROSCOPIC GUIDANCE, THE TARGET POINT WAS SELECTED AT THE INTERLAMINAR LEVEL OF L4-L5. LIDOCAINE WAS USED TO NUMB THE SKIN AND THE SUBCUTANEOUS TISSUE BELOW IT. EPIDURAL TUOHY NEEDLE, 16-GAUGE 4.5 INCH, WAS ADVANCED UNDER FLUOROSCOPIC GUIDANCE AND FOLLOWING PATIENT FEEDBACK UNTIL THE EPIDURAL SPACE WAS REACHED, 7 CM DEEP INTO THE SKIN BY THE LOSS OF RESISTANCE TECHNIQUE. ISOVUE M DYE 30%, 0.25 ML, WAS INJECTED SHOWING ADEQUATE SPREAD OF THE DYE. THEN, A SOLUTION OF 3 ML OF NORMAL SALINE WITH DEXAMETHASONE 10 MG WAS INJECTED SLOWLY FOLLOWING PATIENT FEEDBACK. THERE WAS NO EVIDENCE OF BLOOD, PARESTHESIA OR CEREBROSPINAL FLUID DURING THE PROCEDURE. THE PATIENT WAS SENT TO THE RECOVERY ROOM. THE PATIENT WAS MOVING THE EXTREMITIES AND DOING WELL. THERE WAS NO COMPLICATION DURING THE PROCEDURE. FLUOROSCOPY TIME WAS 68 SECONDS. TOTAL TZXT-PD-UIOF TIME IS 33 MINUTES POST PROCEDURE NOTE THE PATIENT WILL BE SEEN IN A FOLLOW UP IN THE NEXT FEW WEEKS. I AM LOOKING FOR LONG LASTING PAIN RELIEF FOR THE PATIENT WITH THIS INJECTION. INSTRUCTIONS WERE GIVEN, QUESTIONS WERE ANSWERED, AND THE PATIENT EXPRESSED UNDERSTANDING AND AGREES WITH THE PLAN. I INSTRUCTED THE PATIENT TO STAY HOME, IF POSSIBLE, FOR A WEEK DUE TO COVID-19. I, AYLIN SAAVEDRA, DOCUMENTED THE ABOVE INFORMATION ACTING A SCRIBE FOR DR. LEWIS. I HAVE REVIEWED THE ABOVE DOCUMENT, WRITTEN BY SHERIN VASQUES, AND I VERIFY THAT IT IS ACCURATE DIAGNOSTIC IMAGING [facility] FLUORO GUIDE SPINE INJECTION (PAIN)1301671 PROCEDURE CODES 6045F RADXPS IN END [id number] PXD 91331 LUMBAR/SACRAL W/ IMAGING 01363 MOD SED SAME PHYS/QHP 5/>YRS 78754 MOD SED SAME PHYS/QHP EA DISPOSITION & COMMUNICATION FOLLOW UP 2 WEEKS F/UP WITH DECORATIVE ENGRAVER (REASON: POST-PROCEDURE F/UP-LOW BACK PAIN) ELECTRONICALLY SIGNED BY GALI LEWIS MD, MD ON 01/01/2020 AT 09:13 AM EDT DISCLAIMER : THIS IS A VISIT SUMMARY EXTRACTED FROM THE [employer] CHART. IT IS NOT A COPY OF THE [employer] PROGRESS NOTE. STEFD
== END ==
LOC: M PAIN 10:45
PROVIDERS: ATTEND Anesthesiology
DX: M48.061 Spinal stenosis, lumbar region without neurogenic claudication (principal); M47.816 Spondylosis without myelopathy or radiculopathy, lumbar region; I10 Essential (primary) hypertension; E55.9 Vitamin D deficiency, unspecified; D50.9 Iron deficiency anemia, unspecified; R73.01 Impaired fasting glucose; K21.9 Gastro-esophageal reflux disease without esophagitis; G47.33 Obstructive sleep apnea (adult) (pediatric); Z86.14 Personal history of Methicillin resistant Staphylococcus aureus infection; Z98.84 Bariatric surgery status; Z96.653 Presence of artificial knee joint, bilateral; Z87.891 Personal history of nicotine dependence; Z88.0 Allergy status to penicillin; Z88.1 Allergy status to other antibiotic agents; Z88.4 Allergy status to anesthetic agent; Z88.5 Allergy status to narcotic agent; Z88.8 Allergy status to other drugs, medicaments and biological substances; Z91.09 Other allergy status, other than to drugs and biological substances; Z79.01 Long term (current) use of anticoagulants; E66.01 Morbid (severe) obesity due to excess calories; Z68.42 Body mass index [BMI] 45.0-49.9, adult; Z79.899 Other long term (current) drug therapy
CPT/HCPCS: 62323; 99152; 99153; J1100; J2250; J3010; Q9967

== ENCOUNTER → 2020-01-22 | Outpatient (CLI) | payer MEDICARE, MEDICAID ==
[~2020-01-22] MED LIST changes: -ISOVUE-M 300 61% 15ML VIAL As Ordered ONE; -LIDOCAINE 1% SDV 30ML VIAL As Ordered ONE; -MIDAZOLAM INJ 2MG/2ML VIAL (J2250 PER 1MG) As Ordered ONE; -dexameTHASONE 10MG/1ML VIAL PRES.FREE (J1100 PER 1MG) As Ordered ONE; -fentaNYL 100 MCG/2 ML INJECTION (J3010) As Ordered ONE
--- NOTE | 2020-01-26 02:51 | ECWPNPC ---
PATIENT NAME: NISHA MUNSON : 1955 GENDER: FEMALE VISIT DATE: 01/22/2020 DISCHARGE DATE: 01/22/20 1551 VISIT LOCKED DATE TIME: PHYSICIAN: VIOLETA TITUS PHYSICIAN PAGER NO: [phone] RESOURCE: VIOLETA TITUS REASON FOR APPOINTMENT 1. POST LESI HISTORY OF PRESENT ILLNESS GENERAL: PATIENT IS AGREEABLE TO TELEPHONE VISIT TODAY. THIS IS A POST PROCEDURE VISIT. HAD L4-5 LESI WITH IV SEDATION ON 12/31/2019. REPORTING SIGNIFICANT REDUCTION IN LOW BACK PAIN, POST PROCEDURE, SOME OF WHICH CONTINUES TODAY. PREPROCEDURE VAS 9/10. POST PROCEDURE. VAS 2/10 VAS. TODAY. PAIN IS AT A LEVEL V/X VAS. REPORTS NO CHANGE IN LEFT LEG RADICULAR SYMPTOMS POST PROCEDURES. REVIEWED MRI AND DISCUSSED TREATMENT OPTIONS.-. FALL RISK SCREENING: SCREENING :NO FALLS REPORTED IN THE LAST YEAR PAIN SCREENING: PATIENT HAS A COMPLAINT OF ACUTE OR CHRONIC PAIN :YES LOCATION OF PAIN:LOW BACK, LEG(S), FEET INTENSITY OF PAIN (SCALE OF 1 TO 10):6 AVERAGE 3-7 WHAT DOES YOUR PAIN FEEL LIKE:ACHING, CONTINOUS, TENDER, SORE, OTHER ELECTRICAL SHOCK LEFT LOWER LEG TO FOOT DURATION:CONTINOUS, CONSTANT PAIN IS INCREASED BY: SITTING IN A CHAIR PAIN IS DECREASED BY: LAYING ON STOMACH WHICH SHE IS UNABLE TO DO DUE TO CPAP PAIN HAS INTERFERED WITH THE FOLLOWING:BATHING/DRESSING, MOOD, WALKING ABILITY, HOUSEWORK, SLEEP, ENJOYMENT OF LIFE, FOOD PREPARATION PLAN/GOALS/TREATMENT/INTERVENTION/FOLLOW UP:SEE PLAN NURSING NOTE: -. PAIN CENTER INTAKE QUESTIONS: DO YOU HAVE A HISTORY OF MRSA? :YES ABD WOUND DO YOU TAKE A BLOOD THINNERS? :YES XARELTO DO YOU HAVE ANY BLEEDING DISORDERS? :NO ANY NEW NUMBNESS OR WEAKNESS IN YOUR LEGS OR ARMS? :NO ANY PACEMAKER,DEFIBRILLATOR, OR DORSAL COLUMN STIMULATOR? :NO LOOP RECORDER DO YOU HAVE ANY RASHES OR OPEN SORES? :NO ARE YOU ALLERGIC TO IV DYE? :NO ARE YOU DIABETIC? :NO ANY NEW PROBLEMS WITH YOUR MEDICATIONS? :NO HAVE YOU RECEIVED A VACCINE IN THE PAST 30 DAYS? :NO DO YOU PLAN TO RECEIVE A VACCINE IN THE NEXT 21 DAYS? :NO DO YOU NEED ANY PRESCRIPTION? :NO DO YOU TAKE ANY IMMUNOSUPPRESSIVE MEDICATIONS? :NO CURRENT MEDICATIONS TAKING CLARITIN 10 MG TABLET 1 TABLET ORALLY ONCE A DAY TAKING VITAMIN B12 1000 MCG SC . SC EVERY 8 WEEKS TAKING PROAIR HFA 108 (90 BASE) MCG/ACT AEROSOL SOLUTION 2 PUFFS NEEDED INHALATION QID PRN TAKING FERROUS GLUCONATE 325 MG CAPSULE 1 TABLET ORALLY TWICE DAILY TAKING VITAMIN D 5000 TABLET 1 TABLET ORALLY TID TAKING CALCIUM 600+D HIGH POTENCY 600-400 MG-UNIT TABLET 1 TABLET WITH FOOD ORALLY TWICE A DAY TAKING NYSTATIN [id number] UNITS/G TOPICAL OINTMENT . APPLIED TOPICALLY DIRECTED BID X 10 DAYS C FLARES TAKING XARELTO 20 MG TABLET 1 TAB(S) ORAL AT DINNER TIME TAKING RECLAST 5 MG/100ML SOLUTION DIRECTED INTRAVENOUS TAKING COMPRESSION STOCKINGS 30-40 MMHG KNEE HIGH I87.2 DAILY TAKING TYLENOL 8 HOUR 650 MG TABLET EXTENDED RELEASE 2 TABLETS NEEDED ORALLY AKES 500 MG TAKING OXYCODONE-ACETAMINOPHEN 10-325 MG TABLET 1 TABLET NEEDED ORALLY EVERY 8 HRS TAKING PANTOPRAZOLE SODIUM 40 TABLET DELAYED RELEASE 1 TABLET ORALLY BID TAKING METOPROLOL SUCCINATE 25 MG CAPSULE ER 24 HOUR SPRINKLE 1 CAPSULE ORALLY ONCE A DAY FOR SBP>140 TAKING SUCRALFATE 1 GM TABLET 1 TABLET ON AN EMPTY STOMACH ORALLY THREE TIMES DAILY NOT-TAKING TIZANIDINE HCL 4 MG CAPSULE 1 CAPSULE NEEDED ORALLY THREE TIMES A DAY, NOTES: NOT CURRENTLY TAKING - W/C FIGHTING NOT-TAKING AMLODIPINE BESYLATE 2.5 MG TABLET 1 TABLET IF BP>130/80 ORALLY ONCE A DAY MEDICATION LIST REVIEWED AND RECONCILED WITH THE PATIENT PAST MEDICAL HISTORY 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 12/2008-SETTER HYPERTENSION ALLERGIC RHINITIS H/O IMMUNOTHERAPY X >10Y-STOPPED 2 INADEQUATE RESPONSE NONALCOHOLIC FATTY LIVER DISEASE C MILD CHRONIC ELEVATED ALP OBESITY, MORBID STATUS POST R-Y GASTRIC BYPASS 06/2006, 12/29/15-MARYJANE VITAMIN D DEFICIENCY ANEMIA, IRON/FE DEFICIENCY HISTORY OF RIGHT LOWER EXTREMITY DVT X2 IMPAIRED FASTING GLUCOSE HISTORY OF NICOTINE ADDICTION-SMOKED 7 CIGS QD X 10Y, QUIT AT 28 YO-04/2012 FEV1 2.3L (99%)/RATIO 108% GERD-11/2014 NORMAL EGD-REINDL TUBULAR ADENOMA BY 11/2014 COLONOSCOPY-REINDL ATRIAL FIBRILLATION, [id number] POD 2 TKR 05/2015- CONVERTED TO SR C CARDIOVERSION LISA, MODERATE-07/2017 HST JLUIS 17 C SAO2 TO 88% HO MRSA ABSCESS- HAS BEEN TREATED AND TESTED NEGATIVE LUMBAR DJD-11/2017 MRI L5/S1 BULGE EXTENDING INTO B NF DISPLACING R S1 ROOT, MILD L4/5 CCS R T5 ZOSTER RXED C VALCYC/PRED 05/2018 IMPINGEMENT AND SPURRING LEFT SHOULDER ALLERGIES PENICILLIN (FOR ALLERGIES USE ONLY): RASH - ALLERGY ERYTHROMYCIN: RASH - ALLERGY DOXYCYCLINE HYCLATE: RASH - ALLERGY TALWIN: RASH HIVES - ALLERGY NOVACAINE (PT NOTES SHE WAS OK WITH RECENT LIDOCAI: SWELLING - ALLERGY BACTRIM: RASH - ALLERGY TETRACYCLINE HCL: HIVES - ALLERGY VICODIN: ITCH - ALLERGY SINGULAIR: GERD - SIDE EFFECTS CODEINE SULFATE: UNCONSCIOUSNESS - ALLERGY GABAPENTIN: IRRITABILITY/AGGRESSIVENESS - SIDE EFFECTS LYRICA: SHAKING /FORGETFULNESS AMITRIPTYLINE HCL: MEMORARY ISSUES - SIDE EFFECTS ADHESIVE: RED,IRRITATION IF ON LONG TIME - SIDE EFFECTS SURGICAL HISTORY I&D ABDOMEN ABSCESS 05/2010 OPEN GASTRIC BYPASS 2007 PARTIAL HYSTERECTOMY 2008 RIGHT SHOULDER SURGERY (X2) 2008 AND 2009 APPENDECTOMY AGE 9 RIGHT WRIST SURGERY X 2 1980S THROAT TUMOR AGE 16 SURGERY FOR DEVIATED SEPTUM AGE 18 AD [id number] 02/2014 R TKR- DR. HUYNH-[place] 06/20/15 GASTRIC BYPASS REVISION-MARYJANE 12/29/15 L TKR-DR. HUYNH-SOS 01/01/17 ROBOTIC VENTRAL HERNIA REPAIR 2 SURGICAL VENTRAL HERNIA-MARYJANE 05/16/17 HAS IVC FILTER IMPLANTED CARDIAC MONTIOR 06/03/19 FAMILY HISTORY FATHER: 66 YRS, KIDNEY FAILURE MOTHER: 78 YRS, HTN, PACEMAKER, DIAGNOSED WITH HYPERTENSION SIBLINGS: ALIVE, DIABETES, HYPERTENSION MATERNAL GRAND FATHER: , BRAIN CANCER MATERNAL GRAND MOTHER: , COLON CARCINOMA 1 SON(S) , 2 DAUGHTER(S) . MGF AND COUSIN HAD COLON CA.\\\\NDAUGHTERS-CHRONIC BACK PAIN\\\\NSON-HAD THYROIDECTOMY--UNSURE OF DIAGNOSIS. SOCIAL HISTORY GENERAL: TOBACCO USE ARE YOU A:FORMER SMOKER HOW LONG HAS IT BEEN SINCE YOU LAST SMOKED?> 10 YEARS LATEX QUESTIONNAIRE LATEX ALLERGY : HAVE YOU EVER DEVELOPED ANY TYPE OF REACTION AFTER HANDLING LATEX PRODUCTS SUCH RUBBER GLOVES, CONDOMS, DIAPHRAGMS, BALLOONS, SOCKS, OR UNDERWEAR?NO ADHESIVE SENSITIVITY LATEX ALLERGY : HAVE YOU EVER DEVELOPED ANY TYPE OF REACTION DURING OR AFTER DENTAL APPOINTMENT, VAGINAL/RECTAL EXAMINATION, SURGICAL PROCEDURE, OR ANY OTHER EXPOSURE?NO LATEX RISK : HAVE YOU EVER HAD ANY DIFFICULTY BREATHING OR HIVES AFTER EATING OR HANDLING ANY FRUITS, OR VEGETABLES; SUCH KIWI, BANANAS, STONE FRUITS, OR CHESTNUTSNO LATEX RISK : DO YOU HAVE A PREVIOUS PERSONAL HISTORY OF MORE THAN NINE SURGERIES, SPINA BIFIDA, OR REPEATED CATHERIZATIONS? YES - PLEASE INDICATE : > 9 SURGERIES LATEX RISK : ARE YOU FREQUENTLY EXPOSED TO LATEX PRODUCTS IN YOUR OCCUPATION?NO DATE ASKED : 01/21/2020 BMI CARE GOAL FOLLOW-UP ABOVE NORMAL BMI FOLLOW-UPLIFESTYLE EDUCATION REGARDING DIET ALCOHOL SCREENING DID YOU HAVE A DRINK CONTAINING ALCOHOL IN THE PAST YEAR?NO POINTS0 INTERPRETATIONNEGATIVE RECREATIONAL DRUG USE DRUG USE?NO CAFFEINE CAFFEINE USE?NO SEXUAL HX HAD SEX IN THE LAST 12 MONTHS (VAGINAL, ORAL, OR ANAL)?NO LMP:HYSTER HAVE YOU EVER HAD AN STD?NO HIV / HEP-C SCREENING HIV TEST OFFERED TO PATIENT:YES DATE OFFERED:11/05/2017 TEST ACCEPTED:NO HEP-C TEST OFFERED TO PATIENT:YES DATE OFFERED:11/22/2016 REASON:PATIENT DECLINED TEST ACCEPTED:NO REASON:PATIENT DECLINED BROCHURE PROVIDED TO PATIENTYES QUAKER [id number] RESTORATIONISM LANGUAGE LANGUAGES SPOKEN:FIJIAN EDUCATION LEVEL OF EDUCATION:NOT FINISHED COLLEGE LEARNING BARRIERS / SPECIAL NEEDS CHANGE FROM LAST VISIT?NO BARRIERS TO LEARNING?NO HEARING IMPAIRED?NO VISION IMPAIRED?YES COGNITIVELY IMPAIRED?NO :CORRECTIVE LENSES READINESS TO LEARN?YES LEARNING PREFERENCES?NO LEARNING CAPABILITIES PRESENT?YES EMOTIONAL BARRIERS?NO SPECIAL DEVICES?YES :CANE, WALKER, 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 DIET: REGULAR. EXERCISE: NO REGULAR EXERCISE, SMALL WALKS. MARITAL STATUS: . PAIN CLINIC PFS, CLERGY, PUBLIC HEALTH REFERRALS PFS REFERRAL NEEDED?NO CLERGY REFERRAL NEEDED?NO PUBLIC HEALTH REFERRAL NEEDED?NO WAS THE PROVIDER NOTIFIED OF ANY PERTINENT INFO?YES HAS THE PATIENT BEEN EDUCATED REGARDING HIS/HER PLAN OF CARE?YES HAS THE PATIENT BEEN EDUCATED REGARDING PAIN, THE RISK FOR PAIN, THE IMPORTANCE OF EFFECTIVE PAIN MANAGEMENT, AND THE PAIN ASSESSMENT PROCESS?YES ADVANCE DIRECTIVE ADVANCE DIRECTIVE DISCUSSED WITH PATIENT:YES PT. HAS HCP, DAUGHTER DARIO MCKEONSTELLA [phone], DAUGHTER DEANDRA BECKHAM [phone] HOSPITALIZATION/MAJOR DIAGNOSTIC PROCEDURE I&D MRSA ABDOMEN ABSCESS 05/2010 ACUTE DYSPNEA/HYPOXIA ([facility] PRIOR NORMAL MEAL)-ELISA AWOKE 530 2 WANDA, THEN IMMEDIATELY CAUSED COUGH/DYSPNEA-FELT ASPIRATION PN, IN ED RECEIVED ALBUTEROL NEB X 3 THEN WENT INTO AFIB C RVR, CONVERTED IN ED C IV AMIODARONE 150 X 2, -BLE DVT US,- CXR X 2 (09/09, 09/09-09/11/14 A. FIB WITH SURGERIES SURGERIES REVIEW OF SYSTEMS CONSTITUTIONAL: ANY RECENT FEVER OR ILLNESS NO . CHILLS NO . GASTROENTEROLOGY: BOWEL INCONTINENCE NO . ANY NEW CHANGE IN BOWEL CONTROL? NO . ABDOMINAL PAIN NO . CONSTIPATION NO . GENITOURINARY: ANY NEW CHANGE IN BLADDER CONTROL? NO . IS THERE A CHANCE YOU COULD BE ? NO . URINARY INCONTINENCE NO . CARDIOLOGY: CHEST PRESSURE NO . CHEST PAIN NO . RESPIRATORY: COUGH NO . SHORTNESS OF BREATH NO . ASSESSMENTS LUMBAR SPINAL STENOSIS - M48.061 (PRIMARY) SPONDYLOSIS OF LUMBAR REGION WITHOUT MYELOPATHY OR RADICULOPATHY - M47.816 TREATMENT LUMBAR SPINAL STENOSIS NOTES: PATIENT WAS ADVISED TO START A WALKING PROGRAM TO STRENGTHEN LUMBAR PARASPINAL MUSCLES AND IMPROVE MOBILITY. THEY WERE ADVISED THAT THIS WILL IMPROVE WEIGHT LOSS AND ALSO DEPRESSION/FIBROMYALGIA SYMPTOMS. ADVISED TO WALK 10 MINUTES EVERY OTHER DAY ON A FLAT SURFACE. EMPHASIZED THE IMPORTANCE OF DOING THIS CONSISTANTLY AND NOT SPORATICALLY TO AVOID INJURY. TOTAL TIME SPENT DURING TELEPHONE VISIT WAS APPROXIMATLEY 12 MINUTES. OTHERS NOTES: V/S NOT DONE DUE TO VIRTUAL VISIT. DISPOSITION & COMMUNICATION FOLLOW UP 8-10 WEEKS. FOLLOW-UP (REASON: LOW BACK PAIN) ELECTRONICALLY SIGNED BY YVETTE HINOJOSA ON 01/25/2020 AT 04:40 PM EDT DISCLAIMER : THIS IS A VISIT SUMMARY EXTRACTED FROM THE [employer] CHART. IT IS NOT A COPY OF THE [employer] PROGRESS NOTE. [facility]
== END ==
LOC: M PAIN 10:15
PROVIDERS: ATTEND Nurse Practitioner Family
DX: M48.061 Spinal stenosis, lumbar region without neurogenic claudication (principal); M47.816 Spondylosis without myelopathy or radiculopathy, lumbar region

== ENCOUNTER → 2020-02-23 | Outpatient (REF) | payer MEDICARE, MEDICAID ==
[~2020-02-23] MED LIST changes: +ACET650T61 PO; +ASCO250T20 PO; -ASPI81TA85 PO; +ASPI81TA86 PO; +CYAN500T10 PO; -CYAN500T9 PO; -TYLE650T35 PO; -VITA1TAB23 PO
[2020-02-23 13:37] LABS: BASO # 0.1 10^3/uL (0.0-0.2); BASO % 0.9 % (0.0-1.0); EOS # 0.2 10^3/uL (0.0-0.5); EOS % 2.2 % (0.0-3.0); HEMATOCRIT 35.8 % (36.0-47.0); HEMOGLOBIN 10.6 g/dl (12.0-15.5); LYMPH # 1.8 10^3/uL (1.5-5.0); LYMPH % 20.3 % (24.0-44.0); MEAN CORPUSCULAR HEMOGLOBIN 26.4 pg (27.0-33.0); MEAN CORPUSCULAR HGB CONC 29.6 g/dl (32.0-36.5); MEAN CORPUSCULAR VOLUME 89.3 fl (80.0-96.0); MONO # 0.6 10^3/uL (0.0-0.8); MONO % 6.8 % (0.0-5.0); NEUTROPHILS # 6.2 10^3/uL (1.5-8.5); NEUTROPHILS % 69.1 % (36.0-66.0); PLATELET COUNT, AUTOMATED 332 10^3/uL (150-450); RED BLOOD COUNT 4.01 10^6/uL (4.00-5.40)
[2020-02-23 14:06] LABS: ALBUMIN 3.5 GM/DL (3.2-5.2); ALT/SGPT 20 U/L (12-78); BILIRUBIN,TOTAL 0.4 MG/DL (0.2-1.0); BLOOD UREA NITROGEN 12 MG/DL (7-18); CALCIUM LEVEL 8.7 MG/DL (8.8-10.2); CARBON DIOXIDE LEVEL 27 MEQ/L (21-32); CHLORIDE LEVEL 109 MEQ/L (98-107); CHOLESTEROL LEVEL 126 MG/DL (<200); CHOLESTEROL RISK RATIO 2.333 (<5); CREATININE FOR GFR 0.74 MG/DL (0.55-1.30); FREE T4 1.05 NG/DL (0.76-1.46); GLOMERULAR FILTRATION RATE > 60.0 (>45); GLUCOSE, FASTING 108 MG/DL (70-100); HDL CHOLESTEROL 54 MG/DL (>40); LDL CHOLESTEROL 48 MG/DL (<100); NON-HDL-C 72 MG/DL; POTASSIUM SERUM 4.4 MEQ/L (3.5-5.1); SODIUM LEVEL 140 MEQ/L (136-145); TOTAL 25(OH) VITAMIN D 54.8 NG/ML (30.0-100.0); TOTAL PROTEIN 6.9 GM/DL (6.4-8.2); TRIGLYCERIDES LEVEL 122 MG/DL (<150)
[2020-02-23 14:18] LABS: PTH INTACT 135.3 PG/ML (18.5-88.0)
[2020-02-23 15:37] LABS: HEMOGLOBIN A1c 6.5 %
== END ==
LOC: M SFHCPLAZ 12:05
PROVIDERS: ATTEND Family Medicine
DX: D51.9 Vitamin B12 deficiency anemia, unspecified (principal); R73.01 Impaired fasting glucose; E06.3 Autoimmune thyroiditis; E55.9 Vitamin D deficiency, unspecified; Z23 Encounter for immunization
CPT/HCPCS: 36415; 80053; 80061; 82306; 83036; 83525; 83970; 84439; 84443; 85025; 85046; 90471; 90750; 96372; G0463; J3420

== ENCOUNTER → 2020-03-11 | Outpatient (CLI) | payer MEDICARE, MEDICAID ==
--- NOTE | 2020-03-15 07:45 | ECWPNPC ---
PATIENT NAME: NISHA MUNSON : 1955 GENDER: FEMALE VISIT DATE: 03/11/2020 DISCHARGE DATE: 03/11/20 0936 VISIT LOCKED DATE TIME: PHYSICIAN: VIOLETA TITUS PHYSICIAN PAGER NO: [phone] RESOURCE: VIOLETA TITUS REASON FOR APPOINTMENT 1. LOW BACK PAIN HISTORY OF PRESENT ILLNESS GENERAL: HERE FOR FOLLOW-UP OF CHRONIC LOW BACK PAIN. HAS BEEN HAVING SEVERE INCREASE IN LOW BACK PAIN OVER THE PAST 2 WEEKS. FINDING IT DIFFICULT TO AMBULATE. USES ASSISTANCE OF CANE OR WALKER. REVIEWED MRI OF THE LS-SPINE. DISCUSSED TREATMENT OPTIONS. REVIEWED RADIOFREQUENCY PROCESS AND POTENTIAL BENEFITS OF THIS PROCEDURE. DISCUSSED DIAGNOSTIC TESTING BEFORE RADIOFREQUENCY. PATIENT VOICES UNDERSTANDING. WOULD LIKE TO PROCEED. -. FALL RISK SCREENING: SCREENING :NO FALLS REPORTED IN THE LAST YEAR PAIN SCREENING: PATIENT HAS A COMPLAINT OF ACUTE OR CHRONIC PAIN :YES LOCATION OF PAIN:LOW BACK INTENSITY OF PAIN (SCALE OF 1 TO 10):8 WHAT DOES YOUR PAIN FEEL LIKE:SHARP RIGHT ACROSS BOTTOM OF BACK DURATION:CONTINOUS, CONSTANT, ALL DAY PAIN IS INCREASED BY:ACTIVITIES, PROLONGED STANDING PAIN IS DECREASED BY:USE OF PAIN MEDICATIONS, OTHERS REPOSITIONING LEVEL OF RELIEF FROM PAIN TREATMENTS IN THE PAST:25% PAIN HAS INTERFERED WITH THE FOLLOWING:BATHING/DRESSING, MOOD, WALKING ABILITY, HOUSEWORK, SLEEP, RELATIONSHIP WITH OTHERS, ENJOYMENT OF LIFE PLAN/GOALS/TREATMENT/INTERVENTION/FOLLOW UP:SEE PLAN NURSING NOTE: -. PAIN CENTER INTAKE QUESTIONS: DO YOU HAVE A HISTORY OF MRSA? :NO DO YOU TAKE A BLOOD THINNERS? :YES XARELTO 03/10/20 @6PM DO YOU HAVE ANY BLEEDING DISORDERS? :NO ANY NEW NUMBNESS OR WEAKNESS IN YOUR LEGS OR ARMS? :NO ANY PACEMAKER,DEFIBRILLATOR, OR DORSAL COLUMN STIMULATOR? :NO DO YOU HAVE ANY RASHES OR OPEN SORES? :NO ARE YOU ALLERGIC TO IV DYE? :NO ARE YOU DIABETIC? :NO ANY NEW PROBLEMS WITH YOUR MEDICATIONS? :NO HAVE YOU RECEIVED A VACCINE IN THE PAST 30 DAYS? :YES SHINGLES SHOT 02/23/20 DO YOU PLAN TO RECEIVE A VACCINE IN THE NEXT 21 DAYS? :NO DO YOU NEED ANY PRESCRIPTION? :NO DO YOU TAKE ANY IMMUNOSUPPRESSIVE MEDICATIONS? :NO IS THERE A CHANCE YOU COULD BE ? :NO ARE YOU BREAST FEEDING? :NO CURRENT MEDICATIONS TAKING VITAMIN B12 1000 MCG SC . SC EVERY 8 WEEKS TAKING PROAIR HFA 108 (90 BASE) MCG/ACT AEROSOL SOLUTION 2 PUFFS NEEDED INHALATION QID PRN TAKING FERROUS GLUCONATE 325 MG CAPSULE 1 TABLET ORALLY TWICE DAILY TAKING VITAMIN D 5000 TABLET 1 TABLET ORALLY TID TAKING CALCIUM 600+D HIGH POTENCY 600-400 MG-UNIT TABLET 1 TABLET WITH FOOD ORALLY TWICE A DAY TAKING RECLAST 5 MG/100ML SOLUTION DIRECTED INTRAVENOUS TAKING SUCRALFATE 1 GM TABLET 1 TABLET ON AN EMPTY STOMACH ORALLY AC TID TAKING PANTOPRAZOLE SODIUM 40 MG TABLET DELAYED RELEASE 1 TABLET ORALLY BID TAKING XARELTO 20 MG TABLET 1 TAB(S) ORAL AT DINNER TIME TAKING METOPROLOL SUCCINATE 25 MG CAPSULE ER 24 HOUR SPRINKLE 1 CAPSULE ORALLY ONCE A DAY FOR SBP>140 TAKING NYSTATIN 253450 UNITS/G TOPICAL OINTMENT . APPLIED TOPICALLY DIRECTED BID X 10 DAYS C FLARES TAKING CLARITIN 10 MG TABLET 1 TABLET ORALLY ONCE A DAY TAKING COMPRESSION STOCKINGS 30-40 MMHG KNEE HIGH I87.2 DAILY TAKING TYLENOL 8 HOUR 650 MG TABLET EXTENDED RELEASE 2 TABLETS NEEDED ORALLY AKES 500 MG TAKING OXYCODONE-ACETAMINOPHEN 10-325 MG TABLET 1 TABLET NEEDED ORALLY EVERY 8 HRS NOT-TAKING DICLOFENAC SODIUM 1 % GEL 4 GM TRANSDERMAL FOUR TIMES A DAY TO B KNEES NOT-TAKING OXYCODONE HCL 10 MG TABLET 1 TABLET NEEDED ORALLY 3 TIMES A DAY NOT-TAKING SUCRALFATE 1 GM TABLET 1 TABLET ON AN EMPTY STOMACH ORALLY THREE TIMES DAILY, NOTES: DUPLICATE NOT-TAKING PANTOPRAZOLE SODIUM 40 MG TABLET DELAYED RELEASE TAKE 1 TABLET BY MOUTH TWICE DAILY , NOTES: DUPLICATE MEDICATION LIST REVIEWED AND RECONCILED WITH THE PATIENT PAST MEDICAL HISTORY 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 12/2008-SETTER HYPERTENSION, ESSENTIAL ALLERGIC RHINITIS H/O IMMUNOTHERAPY X >10Y-STOPPED 2 INADEQUATE RESPONSE NONALCOHOLIC FATTY LIVER DISEASE C MILD CHRONIC ELEVATED ALP OBESITY, MORBID STATUS POST R-Y GASTRIC BYPASS 06/2006, 12/29/15-MARYJANE VITAMIN D DEFICIENCY ANEMIA, IRON/FE DEFICIENCY HISTORY OF RIGHT LOWER EXTREMITY DVT X2 IMPAIRED FASTING GLUCOSE HISTORY OF NICOTINE ADDICTION-SMOKED 7 CIGS QD X 10Y, QUIT AT 28 YO-04/2012 FEV1 2.3L (99%)/RATIO 108% GERD-11/2014 NORMAL EGD-REINDL TUBULAR ADENOMA BY 11/2014 COLONOSCOPY-REINDL ATRIAL FIBRILLATION, [id number] POD 2 TKR 05/2015-SP PULMONARY VEIN ISOLATION, ILR [id number]-02/9/19 LISA, MODERATE-07/2017 HST JLUIS 17 C SAO2 TO 88% HO MRSA ABSCESS- HAS BEEN TREATED AND TESTED NEGATIVE LUMBAR DJD-11/2017 MRI L5/S1 BULGE EXTENDING INTO B NF DISPLACING R S1 ROOT, MILD L4/5 CCS R T5 ZOSTER RXED C VALCYC/PRED 05/2018 IMPINGEMENT AND SPURRING LEFT SHOULDER ALLERGIES PENICILLIN (FOR ALLERGIES USE ONLY): RASH - ALLERGY ERYTHROMYCIN: RASH - ALLERGY DOXYCYCLINE HYCLATE: RASH - ALLERGY TALWIN: RASH HIVES - ALLERGY NOVACAINE (PT NOTES SHE WAS OK WITH RECENT LIDOCAI: SWELLING - ALLERGY BACTRIM: RASH - ALLERGY TETRACYCLINE HCL: HIVES - ALLERGY VICODIN: ITCH - ALLERGY SINGULAIR: GERD - SIDE EFFECTS CODEINE SULFATE: UNCONSCIOUSNESS - ALLERGY GABAPENTIN: IRRITABILITY/AGGRESSIVENESS - SIDE EFFECTS LYRICA: SHAKING /FORGETFULNESS AMITRIPTYLINE HCL: MEMORARY ISSUES - SIDE EFFECTS ADHESIVE: RED,IRRITATION IF ON LONG TIME - SIDE EFFECTS SURGICAL HISTORY I&D ABDOMEN ABSCESS 05/2010 OPEN GASTRIC BYPASS 2007 PARTIAL HYSTERECTOMY 2008 RIGHT SHOULDER SURGERY (X2) 2008 AND 2009 APPENDECTOMY AGE 9 RIGHT WRIST SURGERY X 2 1980S THROAT TUMOR AGE 16 SURGERY FOR DEVIATED SEPTUM AGE 18 AD [id number] 02/2014 R TKR- DR. HUYNH-[place] 06/20/15 GASTRIC BYPASS REVISION-MARYJANE 12/29/15 L TKR-DR. HUYNH-SOS 01/01/17 ROBOTIC VENTRAL HERNIA REPAIR 2 SURGICAL VENTRAL HERNIA-MARYJANE 05/16/17 HAS IVC FILTER IMPLANTED CARDIAC MONTIOR 06/03/19 FAMILY HISTORY FATHER: 66 YRS, KIDNEY FAILURE MOTHER: 78 YRS, HTN, PACEMAKER, DIAGNOSED WITH HYPERTENSION SIBLINGS: ALIVE, HYPERTENSION, DIABETES MATERNAL GRAND FATHER: , BRAIN CANCER MATERNAL GRAND MOTHER: , COLON CARCINOMA 1 SON(S) , 2 DAUGHTER(S) . MGF AND COUSIN HAD COLON CA.\\\\NDAUGHTERS-CHRONIC BACK PAIN\\\\NSON-HAD THYROIDECTOMY--UNSURE OF DIAGNOSIS. SOCIAL HISTORY GENERAL: TOBACCO USE ARE YOU A:FORMER SMOKER HOW LONG HAS IT BEEN SINCE YOU LAST SMOKED?> 10 YEARS LATEX QUESTIONNAIRE LATEX ALLERGY : HAVE YOU EVER DEVELOPED ANY TYPE OF REACTION AFTER HANDLING LATEX PRODUCTS SUCH RUBBER GLOVES, CONDOMS, DIAPHRAGMS, BALLOONS, SOCKS, OR UNDERWEAR?NO ADHESIVE SENSITIVITY LATEX ALLERGY : HAVE YOU EVER DEVELOPED ANY TYPE OF REACTION DURING OR AFTER DENTAL APPOINTMENT, VAGINAL/RECTAL EXAMINATION, SURGICAL PROCEDURE, OR ANY OTHER EXPOSURE?NO LATEX RISK : HAVE YOU EVER HAD ANY DIFFICULTY BREATHING OR HIVES AFTER EATING OR HANDLING ANY FRUITS, OR VEGETABLES; SUCH KIWI, BANANAS, STONE FRUITS, OR CHESTNUTSNO LATEX RISK : DO YOU HAVE A PREVIOUS PERSONAL HISTORY OF MORE THAN NINE SURGERIES, SPINA BIFIDA, OR REPEATED CATHERIZATIONS? YES - PLEASE INDICATE : > 9 SURGERIES LATEX RISK : ARE YOU FREQUENTLY EXPOSED TO LATEX PRODUCTS IN YOUR OCCUPATION?NO DATE ASKED : 03/11/2020 BMI CARE GOAL FOLLOW-UP ABOVE NORMAL BMI FOLLOW-UPLIFESTYLE EDUCATION REGARDING DIET ALCOHOL SCREENING DID YOU HAVE A DRINK CONTAINING ALCOHOL IN THE PAST YEAR?NO POINTS0 INTERPRETATIONNEGATIVE RECREATIONAL DRUG USE DRUG USE?NO CAFFEINE CAFFEINE USE?NO SEXUAL HX HAD SEX IN THE LAST 12 MONTHS (VAGINAL, ORAL, OR ANAL)?NO LMP:HYSTER HAVE YOU EVER HAD AN STD?NO HIV / HEP-C SCREENING HIV TEST OFFERED TO PATIENT:YES DATE OFFERED:11/05/2017 TEST ACCEPTED:NO HEP-C TEST OFFERED TO PATIENT:YES DATE OFFERED:11/22/2016 REASON:PATIENT DECLINED TEST ACCEPTED:NO REASON:PATIENT DECLINED BROCHURE PROVIDED TO PATIENTYES SABIANISM [id number] HOLINESS LANGUAGE LANGUAGES SPOKEN:ZIMBABWEAN EDUCATION LEVEL OF EDUCATION:NOT FINISHED COLLEGE LEARNING BARRIERS / SPECIAL NEEDS CHANGE FROM LAST VISIT?NO BARRIERS TO LEARNING?NO HEARING IMPAIRED?NO VISION IMPAIRED?YES COGNITIVELY IMPAIRED?NO :CORRECTIVE LENSES READINESS TO LEARN?YES LEARNING PREFERENCES?NO LEARNING CAPABILITIES PRESENT?YES EMOTIONAL BARRIERS?NO SPECIAL DEVICES?YES :CANE, WALKER, OTHER WALKING CANE CREEL CLERK 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 DIET: REGULAR. EXERCISE: NO REGULAR EXERCISE, SMALL WALKS. MARITAL STATUS: . PAIN CLINIC PFS, CLERGY, PUBLIC HEALTH REFERRALS PFS REFERRAL NEEDED?NO CLERGY REFERRAL NEEDED?NO PUBLIC HEALTH REFERRAL NEEDED?NO WAS THE PROVIDER NOTIFIED OF ANY PERTINENT INFO?YES HAS THE PATIENT BEEN EDUCATED REGARDING HIS/HER PLAN OF CARE?YES HAS THE PATIENT BEEN EDUCATED REGARDING PAIN, THE RISK FOR PAIN, THE IMPORTANCE OF EFFECTIVE PAIN MANAGEMENT, AND THE PAIN ASSESSMENT PROCESS?YES ADVANCE DIRECTIVE ADVANCE DIRECTIVE DISCUSSED WITH PATIENT:YES PT. HAS HCP, DAUGHTER DARIO PICKETT [phone], DAUGHTER DEANDRA BECKHAM [phone] HOSPITALIZATION/MAJOR DIAGNOSTIC PROCEDURE I&D MRSA ABDOMEN ABSCESS 05/2010 ACUTE DYSPNEA/HYPOXIA ([facility] PRIOR NORMAL MEAL)-ELISA AWOKE 530 2 WANDA, THEN IMMEDIATELY CAUSED COUGH/DYSPNEA-FELT ASPIRATION PN, IN ED RECEIVED ALBUTEROL NEB X 3 THEN WENT INTO AFIB C RVR, CONVERTED IN ED C IV AMIODARONE 150 X 2, -BLE DVT US,- CXR X 2 (09/09, 09/09-09/11/14 A. FIB WITH SURGERIES SURGERIES REVIEW OF SYSTEMS CONSTITUTIONAL: ANY RECENT FEVER NO . CHILLS NO . WEIGHT CHANGE OF UNKNOWN REASONS NO . GASTROENTEROLOGY: NEW UNEXPLAINABLE CHANGES IN BOWEL CONTROL NO . CONSTIPATION NO . GENITOURINARY: ANY NEW CHANGE IN BLADDER CONTROL? NO . NEUROLOGY: NEW ONSET DIZZINESS OR NEUROLOGICAL CHANGES NOT MENTIONED NO . NEW NUMBNESS OR PAIN PATTERNS NOT MENTIONED AND PERTINENT TO TODAY'S VISIT NO . CARDIOLOGY: NEW CHEST PRESSURE NO . NEW CHEST PAIN NO . RESPIRATORY: UNEXPLAINABLE COUGH NO . NEW SHORTNESS OF BREATH NO . VITAL SIGNS WT 276.6 LBS, HT 63 IN, BMI 48.99 INDEX, BP 187/71 MM HG, HR 78 /MIN, RR 18 /MIN, TEMP 98.2 F, OXYGEN SAT % 98%, SAFE IN ENV? 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 EXAMINATION GENERAL EXAMINATION: GENERAL AWAKE,ALERT ,PLEASANT . PSYCH AFFECT NORMAL . LUNGS: LUNG DAVID ARE CLEAR TO AUSCULTATION BILATERALLY. GOOD MOVEMENT OF AIR . HEART: S1, S2 IN A REGULAR RATE AND RHYTHM. NO SIGNIFICANT MURMURS, RUBS OR GALLOPS NOTED . LUMBAR: PALPATION: + FOR PAIN OVER L/S SPINE. + FOR PAIN OVER L/S PARASPINALS SPECIFIC POINT TENDERNESS OVER L3-4, L4-5 LUMBAR FACETS WITH FACET LOADING. NEUROLOGIC EXAM: NORMAL SENSATION LIGHT TOUCH BILAT. LOWER EXTREMITIES . DIAGNOSTIC TESTS REVIEWEDMRI L/S SPINE 2018 . ASSESSMENTS LUMBAR SPONDYLOSIS - M47.816 (PRIMARY) TREATMENT LUMBAR SPONDYLOSIS NOTES: STOP XARELTO 3 DAYS POSTPROCEDURE. SCHEDULE BILATERAL DIAGNOSTIC LUMBAR FACET BLOCK, L3-4, L4-5 ON DAY 4. OTHERS NOTES: FACET JOINT INJECTION MATERIAL WAS PRINTED. PROCEDURE CODES [id number] ESTABILISHED PATIENT [facility] FACILITY CHARGE DISPOSITION & COMMUNICATION FOLLOW UP 2 WEEKS POST PROCEDURE (REASON: BILATERAL DIAGNOSTIC LUMBAR FACET BLOCK, L3-4, L4-5 ) ELECTRONICALLY SIGNED BY YVETTE HINOJOSA ON 03/14/2020 AT 02:34 PM EDT DISCLAIMER : THIS IS A VISIT SUMMARY EXTRACTED FROM THE [employer] CHART. IT IS NOT A COPY OF THE [employer] PROGRESS NOTE. STEFD
== END ==
LOC: M PAIN 08:45
PROVIDERS: ATTEND Nurse Practitioner Family
DX: M47.816 Spondylosis without myelopathy or radiculopathy, lumbar region (principal)

== ENCOUNTER → 2020-03-30 | Outpatient (POV) | payer MEDICARE, MEDICAID ==
[~2020-03-30] MED LIST changes: +BUPIVACAINE HCL 0.25% 30ML VIAL ONE; +ISOVUE-M 300 61% 15ML VIAL ONE; +LIDOCAINE 1% SDV 30ML VIAL ONE
--- NOTE | 2020-05-17 09:22 | REP ---
PARTIAL LUMBAR SPINE SERIES: 2-VIEWS HISTORY: Injection procedure for pain. 8 seconds of fluoroscopy time was recorded. FINDINGS: A sequence of 2 last image hold fluoroscopically obtained spot radiographs document needle position and contrast injection associated with lumbar spine facet injection procedure. MTDNickolas
== END ==
LOC: M PAIN 11:00
PROVIDERS: ATTEND Anesthesiology
DX: M47.16 Other spondylosis with myelopathy, lumbar region (principal)

== ENCOUNTER → 2020-04-20 | Outpatient (CLI) | payer MEDICARE, MEDICAID ==
[~2020-04-20] MED LIST changes: -BUPIVACAINE HCL 0.25% 30ML VIAL ONE; -ISOVUE-M 300 61% 15ML VIAL ONE; -LIDOCAINE 1% SDV 30ML VIAL ONE
== END ==
LOC: M PAIN 10:42
PROVIDERS: ATTEND Nurse Practitioner Family
DX: M47.816 Spondylosis without myelopathy or radiculopathy, lumbar region (principal)

== ENCOUNTER → 2020-04-30 | Outpatient (CLI) | payer MEDICARE, MEDICAID | LOC: M LABSMTC 08:01 | PROVIDERS: ATTEND Anesthesiology | DX: Z20.828 Contact with and (suspected) exposure to other viral communicable diseases (principal) | CPT/HCPCS: C9803; U0003 ==

== ENCOUNTER → 2020-05-05 | Outpatient (CLI) | payer MEDICARE, MEDICAID ==
[~2020-05-05] MED LIST changes: +BUPIVACAINE HCL 0.25% 30ML VIAL As Ordered ONE; +ISOVUE-M 300 61% 15ML VIAL As Ordered ONE; +LIDOCAINE 1% SDV 30ML VIAL As Ordered ONE
--- NOTE | 2020-05-25 10:56 | REP ---
FACET BLOCK STUDY: TECHNIQUE: Intraoperative fluoroscopic imaging using portable C-arm technique. FINDINGS: Two images demonstrate catheters and subsequent contrast injection at multiple lumbar facet joints. Total fluoroscopic time: 21 seconds. IMPRESSION: Status post lumbar facet block. STEFD
== END ==
LOC: M PAIN 13:02
PROVIDERS: ATTEND Anesthesiology
DX: M47.816 Spondylosis without myelopathy or radiculopathy, lumbar region (principal)
CPT/HCPCS: 64493; 64494; 77003; G0463; Q9967

== ENCOUNTER → 2020-05-17 | Outpatient (CLI) | payer MEDICARE, MEDICAID ==
[~2020-05-17] MED LIST changes: -BUPIVACAINE HCL 0.25% 30ML VIAL As Ordered ONE; -ISOVUE-M 300 61% 15ML VIAL As Ordered ONE; -LIDOCAINE 1% SDV 30ML VIAL As Ordered ONE
== END ==
LOC: M PAIN 08:39
PROVIDERS: ATTEND Nurse Practitioner Family
DX: M47.816 Spondylosis without myelopathy or radiculopathy, lumbar region (principal)

== ENCOUNTER → 2020-05-26 | Outpatient (CLI) | payer MEDICARE, MEDICAID | LOC: M LABSMTC 09:36 | PROVIDERS: ATTEND Anesthesiology | DX: Z20.828 Contact with and (suspected) exposure to other viral communicable diseases (principal) | CPT/HCPCS: C9803; U0003 ==

== ENCOUNTER → 2020-05-31 | Outpatient (CLI) | payer MEDICARE, MEDICAID ==
[~2020-05-31] MED LIST changes: +BUPIVACAINE HCL 0.25% 30ML VIAL As Ordered ONE; +LIDOCAINE 1% SDV 30ML VIAL As Ordered ONE; +dexameTHASONE 10MG/1ML VIAL PRES.FREE (J1100 PER 1MG) As Ordered ONE; +diazePAM 2 MG TAB As Ordered ONE; +diphenhydrAMINE 25MG CAP As Ordered ONE; +oxyCODONE 5MG TAB As Ordered ONE
--- NOTE | 2020-06-07 09:36 | REP ---
C-ARM VIEWS LOWER LUMBAR SPINE CLINICAL HISTORY: Pain. TECHNIQUE: Six C-arm views of the lower lumbar spine performed during injections by Dr. Neumann. FINDINGS: [place] are seen along the lower lumbar spine. FLUROSCOPY TIME: 1 minute 32 seconds utilized. MTDD
--- NOTE | 2020-06-23 04:09 | ECWPNPC ---
PATIENT NAME: NISHA MUNSON : 1955 GENDER: FEMALE VISIT DATE: 05/31/2020 DISCHARGE DATE: 05/31/20 1231 VISIT LOCKED DATE TIME: PHYSICIAN: GALI LEWIS MD PHYSICIAN PAGER NO: ACTIVE RESOURCE: GALI LEWIS MD REASON FOR APPOINTMENT 1. LEFT L4-L5, L5-S1 COOL RF HISTORY OF PRESENT ILLNESS PAIN CENTER INTAKE QUESTIONS: DO YOU HAVE A HISTORY OF MRSA? :NO DO YOU TAKE A BLOOD THINNERS? :YES XARELTO- LAST DOSE 05/26/2020 DO YOU HAVE ANY BLEEDING DISORDERS? :NO ANY NEW NUMBNESS OR WEAKNESS IN YOUR LEGS OR ARMS? :NO ANY PACEMAKER,DEFIBRILLATOR, OR DORSAL COLUMN STIMULATOR? :YES PATIENT HAS A LOOP RECORDER DO YOU HAVE ANY RASHES OR OPEN SORES? :NO SCRATCHES ON LEGS FROM [place] ARE YOU ALLERGIC TO IV DYE? :NO ARE YOU DIABETIC? :NO ANY NEW PROBLEMS WITH YOUR MEDICATIONS? :NO HAVE YOU RECEIVED A VACCINE IN THE PAST 30 DAYS? :NO DO YOU PLAN TO RECEIVE A VACCINE IN THE NEXT 21 DAYS? :NO DO YOU TAKE ANY IMMUNOSUPPRESSIVE MEDICATIONS? :NO ANY HISTORY OF SEIZURES? :NO ANY HISTORY OF CARDIAC ISSUES OR EVENTS? :NO DO YOU HAVE SLEEP APNEA? :YES DO YOU WEAR A CPAP?YES ANY RECENT HEAD INJURY? :NO DO YOU HAVE ANY NEW INFECTIONS? :NO IS THERE A CHANCE YOU COULD BE ? :NO ARE YOU BREAST FEEDING? :NO WHEN DID YOU LAST EAT? : 05/31/2020 0000 WHEN DID YOU LAST DRINK? : 05/31/2020 0800 WHAT DID YOU LAST DRINK? : WATER NAME OF PERSON DRIVING YOU HOME? : DARIO- DAUGHTER DO YOU HAVE ANY OTHER QUESTIONS OR CONCERNS? : NO GENERAL: -. FALL RISK SCREENING: SCREENING :NO FALLS REPORTED IN THE LAST YEAR PAIN SCREENING: PATIENT HAS A COMPLAINT OF ACUTE OR CHRONIC PAIN :YES LOCATION OF PAIN:LOW BACK INTENSITY OF PAIN (SCALE OF 1 TO 10):6 LEFT WHAT DOES YOUR PAIN FEEL LIKE:ACHING, CONTINOUS, SHARP DURATION:CONSTANT PAIN IS INCREASED BY:ACTIVITIES, PROLONGED STANDING PAIN IS DECREASED BY:OTHERS REPOSITIONING HELPS FOR A WHILE NURSING NOTE: -. CURRENT MEDICATIONS TAKING VITAMIN B12 1000 MCG SC . SC EVERY 8 WEEKS, NOTES: DUE IN JUNE TAKING PROAIR HFA 108 (90 BASE) MCG/ACT AEROSOL SOLUTION 2 PUFFS NEEDED INHALATION QID PRN, NOTES: ABOUT 3 WEEKS AGO TAKING FERROUS GLUCONATE 325 MG CAPSULE 1 TABLET ORALLY TWICE DAILY, NOTES: 05/30/20202099 TAKING VITAMIN D 5000 TABLET 1 TABLET ORALLY TID, NOTES: 05/30/20202099 TAKING CALCIUM 600+D HIGH POTENCY 600-400 MG-UNIT TABLET 1 TABLET WITH FOOD ORALLY TWICE A DAY, NOTES: 05/30/20202099 TAKING RECLAST 5 MG/100ML SOLUTION DIRECTED INTRAVENOUS , NOTES: AT LEAST 6 MONTHS AGO TAKING SUCRALFATE 1 GM TABLET 1 TABLET ON AN EMPTY STOMACH ORALLY AC TID, NOTES: 05/31/2020 08 TAKING PANTOPRAZOLE SODIUM 40 MG TABLET DELAYED RELEASE 1 TABLET ORALLY BID, NOTES: 05/31/2020 08 TAKING XARELTO 20 MG TABLET 1 TAB(S) ORAL AT DINNER TIME, NOTES: 05/26/2020 TAKING METOPROLOL SUCCINATE 25 MG CAPSULE ER 24 HOUR SPRINKLE 1 CAPSULE ORALLY ONCE A DAY FOR SBP>140, NOTES: HAS NOT HAD TO TAKE TAKING NYSTATIN 588021 UNITS/G TOPICAL OINTMENT . APPLIED TOPICALLY DIRECTED BID X 10 DAYS C FLARES, NOTES: PRN TAKING CLARITIN 10 MG TABLET 1 TABLET ORALLY ONCE A DAY, NOTES: 05/30/2020 0900 TAKING COMPRESSION STOCKINGS 30-40 MMHG KNEE HIGH I87.2 DAILY TAKING TYLENOL 8 HOUR 650 MG TABLET EXTENDED RELEASE 2 TABLETS NEEDED ORALLY AKES 500 MG, NOTES: 05/31/2020 0800 TAKING OXYCODONE-ACETAMINOPHEN 10-325 MG TABLET 1 TABLET NEEDED ORALLY EVERY 8 HRS, NOTES: 2 DAYS AGO NOT-TAKING DICLOFENAC SODIUM 1 % GEL 4 GM TRANSDERMAL FOUR TIMES A DAY TO B KNEES NOT-TAKING OXYCODONE HCL 10 MG TABLET 1 TABLET NEEDED ORALLY 3 TIMES A DAY NOT-TAKING SUCRALFATE 1 GM TABLET 1 TABLET ON AN EMPTY STOMACH ORALLY THREE TIMES DAILY, NOTES: DUPLICATE NOT-TAKING PANTOPRAZOLE SODIUM 40 MG TABLET DELAYED RELEASE TAKE 1 TABLET BY MOUTH TWICE DAILY , NOTES: DUPLICATE MEDICATION LIST REVIEWED AND RECONCILED WITH THE PATIENT PAST MEDICAL HISTORY 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 12/2008-SETTER HYPERTENSION, ESSENTIAL ALLERGIC RHINITIS H/O IMMUNOTHERAPY X >10Y-STOPPED 2 INADEQUATE RESPONSE NONALCOHOLIC FATTY LIVER DISEASE C MILD CHRONIC ELEVATED ALP OBESITY, MORBID STATUS POST R-Y GASTRIC BYPASS 06/2006, 12/29/15-MARYJANE VITAMIN D DEFICIENCY ANEMIA, IRON/FE DEFICIENCY HISTORY OF RIGHT LOWER EXTREMITY DVT X2 IMPAIRED FASTING GLUCOSE HISTORY OF NICOTINE ADDICTION-SMOKED 7 CIGS QD X 10Y, QUIT AT 28 YO-04/2012 FEV1 2.3L (99%)/RATIO 108% GERD-11/2014 NORMAL EGD-REINDL TUBULAR ADENOMA BY 11/2014 COLONOSCOPY-REINDL ATRIAL FIBRILLATION, [id number] POD 2 TKR 05/2015-SP PULMONARY VEIN ISOLATION, ILR [id number]-[id number]-11/9/19 LISA, MODERATE-07/2017 HST JLUIS 17 C SAO2 TO 88% HO MRSA ABSCESS- HAS BEEN TREATED AND TESTED NEGATIVE LUMBAR DJD-11/2017 MRI L5/S1 BULGE EXTENDING INTO B NF DISPLACING R S1 ROOT, MILD L4/5 CCS R T5 ZOSTER RXED C VALCYC/PRED 05/2018 IMPINGEMENT AND SPURRING LEFT SHOULDER ALLERGIES PENICILLIN (FOR ALLERGIES USE ONLY): RASH - ALLERGY ERYTHROMYCIN: RASH - ALLERGY DOXYCYCLINE HYCLATE: RASH - ALLERGY TALWIN: RASH HIVES - ALLERGY NOVACAINE (PT NOTES SHE WAS OK WITH RECENT LIDOCAI: SWELLING - ALLERGY BACTRIM: RASH - ALLERGY TETRACYCLINE HCL: HIVES - ALLERGY VICODIN: ITCH - ALLERGY SINGULAIR: GERD - SIDE EFFECTS CODEINE SULFATE: UNCONSCIOUSNESS - ALLERGY GABAPENTIN: IRRITABILITY/AGGRESSIVENESS - SIDE EFFECTS LYRICA: SHAKING /FORGETFULNESS AMITRIPTYLINE HCL: MEMORARY ISSUES - SIDE EFFECTS ADHESIVE: RED,IRRITATION IF ON LONG TIME - SIDE EFFECTS SURGICAL HISTORY I&D ABDOMEN ABSCESS 05/2010 OPEN GASTRIC BYPASS 2007 PARTIAL HYSTERECTOMY 2008 RIGHT SHOULDER SURGERY (X2) 2008 AND 2009 APPENDECTOMY AGE 9 RIGHT WRIST SURGERY X 2 1980S THROAT TUMOR AGE 16 SURGERY FOR DEVIATED SEPTUM AGE 18 AD [id number] 02/2014 R TKR- DR. HUYNH-SYRACUSE 06/20/15 GASTRIC BYPASS REVISION-MARYJANE 12/29/15 L TKR-DR. HUYNH-SOS 01/01/17 ROBOTIC VENTRAL HERNIA REPAIR 2 SURGICAL VENTRAL HERNIA-MARYJANE 05/16/17 HAS IVC FILTER IMPLANTED CARDIAC MONTIOR 06/03/19 FAMILY HISTORY FATHER: 66 YRS, KIDNEY FAILURE MOTHER: 78 YRS, HTN, PACEMAKER, DIAGNOSED WITH HYPERTENSION SIBLINGS: ALIVE, HYPERTENSION, DIABETES MATERNAL GRAND FATHER: , BRAIN CANCER MATERNAL GRAND MOTHER: , COLON CARCINOMA 1 SON(S) , 2 DAUGHTER(S) . MGF AND COUSIN HAD COLON CA.\\\\NDAUGHTERS-CHRONIC BACK PAIN\\\\NSON-HAD THYROIDECTOMY--UNSURE OF DIAGNOSIS. SOCIAL HISTORY GENERAL: TOBACCO USE ARE YOU A:FORMER SMOKER HOW LONG HAS IT BEEN SINCE YOU LAST SMOKED?> 10 YEARS LATEX QUESTIONNAIRE LATEX ALLERGY : HAVE YOU EVER DEVELOPED ANY TYPE OF REACTION AFTER HANDLING LATEX PRODUCTS SUCH RUBBER GLOVES, CONDOMS, DIAPHRAGMS, BALLOONS, SOCKS, OR UNDERWEAR?NO ADHESIVE SENSITIVITY LATEX ALLERGY : HAVE YOU EVER DEVELOPED ANY TYPE OF REACTION DURING OR AFTER DENTAL APPOINTMENT, VAGINAL/RECTAL EXAMINATION, SURGICAL PROCEDURE, OR ANY OTHER EXPOSURE?NO LATEX RISK : HAVE YOU EVER HAD ANY DIFFICULTY BREATHING OR HIVES AFTER EATING OR HANDLING ANY FRUITS, OR VEGETABLES; SUCH KIWI, BANANAS, STONE FRUITS, OR CHESTNUTSNO LATEX RISK : DO YOU HAVE A PREVIOUS PERSONAL HISTORY OF MORE THAN NINE SURGERIES, SPINA BIFIDA, OR REPEATED CATHERIZATIONS? YES - PLEASE INDICATE : > 9 SURGERIES LATEX RISK : ARE YOU FREQUENTLY EXPOSED TO LATEX PRODUCTS IN YOUR OCCUPATION?NO DATE ASKED : 05/31/2020 BMI CARE GOAL FOLLOW-UP ABOVE NORMAL BMI FOLLOW-UPLIFESTYLE EDUCATION REGARDING DIET ALCOHOL SCREENING DID YOU HAVE A DRINK CONTAINING ALCOHOL IN THE PAST YEAR?NO POINTS0 INTERPRETATIONNEGATIVE RECREATIONAL DRUG USE DRUG USE?NO CAFFEINE CAFFEINE USE?NO SEXUAL HX HAD SEX IN THE LAST 12 MONTHS (VAGINAL, ORAL, OR ANAL)?NO LMP:HYSTER HAVE YOU EVER HAD AN STD?NO HIV / HEP-C SCREENING HIV TEST OFFERED TO PATIENT:YES DATE OFFERED:11/05/2017 TEST ACCEPTED:NO HEP-C TEST OFFERED TO PATIENT:YES DATE OFFERED:11/22/2016 REASON:PATIENT DECLINED TEST ACCEPTED:NO REASON:PATIENT DECLINED BROCHURE PROVIDED TO PATIENTYES YARSANISM [id number] BUDDHIST LANGUAGE LANGUAGES SPOKEN:GUATEMALAN EDUCATION LEVEL OF EDUCATION:NOT FINISHED COLLEGE LEARNING BARRIERS / SPECIAL NEEDS CHANGE FROM LAST VISIT?NO BARRIERS TO LEARNING?NO HEARING IMPAIRED?NO VISION IMPAIRED?YES COGNITIVELY IMPAIRED?NO :CORRECTIVE LENSES READINESS TO LEARN?YES LEARNING PREFERENCES?NO LEARNING CAPABILITIES PRESENT?YES EMOTIONAL BARRIERS?NO SPECIAL DEVICES?YES :CANE, WALKER, OTHER WALKING CANE SUPERVISOR STENO POOL 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 DIET: REGULAR. EXERCISE: NO REGULAR EXERCISE, SMALL WALKS. MARITAL STATUS: . PAIN CLINIC PFS, CLERGY, PUBLIC HEALTH REFERRALS PFS REFERRAL NEEDED?NO CLERGY REFERRAL NEEDED?NO PUBLIC HEALTH REFERRAL NEEDED?NO WAS THE PROVIDER NOTIFIED OF ANY PERTINENT INFO?YES HAS THE PATIENT BEEN EDUCATED REGARDING HIS/HER PLAN OF CARE?YES HAS THE PATIENT BEEN EDUCATED REGARDING PAIN, THE RISK FOR PAIN, THE IMPORTANCE OF EFFECTIVE PAIN MANAGEMENT, AND THE PAIN ASSESSMENT PROCESS?YES ADVANCE DIRECTIVE ADVANCE DIRECTIVE DISCUSSED WITH PATIENT:YES PT. HAS HCP, DAUGHTER DARIO PICKETT [phone], DAUGHTER DEANDRA BECKHAM [phone] HOSPITALIZATION/MAJOR DIAGNOSTIC PROCEDURE I&D MRSA ABDOMEN ABSCESS 05/2010 ACUTE DYSPNEA/HYPOXIA ([facility] PRIOR NORMAL MEAL)-ELISA AWOKE 530 2 WANDA, THEN IMMEDIATELY CAUSED COUGH/DYSPNEA-FELT ASPIRATION PN, IN ED RECEIVED ALBUTEROL NEB X 3 THEN WENT INTO AFIB C RVR, CONVERTED IN ED C IV AMIODARONE 150 X 2, -BLE DVT US,- CXR X 2 (09/09, 09/09-09/11/14 A. FIB WITH SURGERIES SURGERIES VITAL SIGNS WT 272.6 LBS, HT 63 IN, BMI 48.28 INDEX, BP 174/77 MM HG, HR 76 /MIN, RR 18 /MIN, TEMP 96.5 F, OXYGEN SAT % 99%, SAFE IN ENV? (Y/N) YES, REVIEWED BY: MT. EXAMINATION GENERAL EXAMINATION: THE PATIENT IS ALERT, ORIENTED TIMES THREE AND COOPERATIVE. HEART SHOWS REGULAR RHYTHM, NO MURMURS AND NO GALLOPS. LUNGS ARE CLEAR TO AUSCULTATION. ASSESSMENTS SPONDYLOSIS WITHOUT MYELOPATHY OR RADICULOPATHY, LUMBAR REGION - M47.816 (PRIMARY) TREATMENT SPONDYLOSIS WITHOUT MYELOPATHY OR RADICULOPATHY, LUMBAR REGION [facility] FLUORO GUIDANCE (PAIN)[id number] PROCEDURES PAIN NURSING RECORD PRE-PROCEDURE IV SITE RIGHT ANTECUBITAL, IV STARTED # 20, IV STARTED BY: Brandon COOL RN, IV ATTEMPTS 1, PRE-PROCEDURE ORAL MEDICATIONS BENADRYL 25MG VALIUM 2MG OXYCODONE 10MG ADMINISTERED AT 1016. SEE PAPER ORDER FORM FOR VERIFICATION OF SECOND NURSE PRIOR TO ADMINISTRATION. PROCEDURE IN ROOM 1050, PHYSICIAN IN ROOM 1117, START 1124, FINISH 1155, PHYSICIAN OUT OF ROOM 1157, OUT OF ROOM 1207, STEROID DEXAMETHASONE, O2 N/A, ECG NORMAL SINUS, PATIENT SHIELDED YES, SAFETY STRAP YES, PREP CHLOROPREP, IV INFUSED LACTATED RINGERS 200 MLS, DRESSING TEGADERM LOC: PEREZ COOL 05/31/2020 11:01:01 AM > , 1. ALERT, ORIENTED RESP: PEREZ COOL 05/31/2020 11:01:01 AM > ,1. REGULAR, NO DYSPNEA COLOR: PEREZ COOL 05/31/2020 11:01:01 AM > ,1. PINK SKIN: PEREZ COOL 05/31/2020 11:01:01 AM > ,1. WARM, DRY POSITION: PEREZ COLO 05/31/2020 11:01:01 AM > ,1. PRONE VITALS: PEREZ COOL 05/31/2020 11:01:55 AM > 167/78, 98% RA, 66, 18, PRONE PEREZ COOL 05/31/2020 11:15:56 AM > 149/78, 96% RA, 63, 18, PRONE PEREZ COOL 05/31/2020 11:30:37 AM > 177/83, 99% RA, 67, 18, PRONE PEREZ COOL 05/31/2020 11:45:55 AM > 165/71, 98% RA, 64, 18, PRONE PEREZ COOL 05/31/2020 12:00:43 AM > 150/72, 100% RA, 62, 18, PRONE PEREZ COOL 05/31/2020 12:15:43 AM > 153/72, 99% RA, 78, 18, POST PROCEDURE DISCHARGE: POST PAIN 1 LOW BACK, DRESSING SITE DRY AND INTACT NO REDNESS AT GROUNDING SITE LOCATION, SKIN CLEAN, DRY AND INTACT, IV DISCONTINUED, SITE CLEAR, CATHETER INTACT, GAIT STEADY, TEACHING COMPLETED, PATIENT ACKNOWLEDGES UNDERSTANDING YES, PATIENT DISCHARGED AT 1225 PN RADIOFREQUENCY DATE OF PROCEDURE 05/31/2020 THERMO LESION RADIOFREQUENCY > 80 DEGREES : COOL - AVANOS SYSTEM SET AT 60* WITH TISSUE TARGET TEMP > 80* OR MORE. STRAIGHT NEEDLE . SIDE: : LEFT . LEVELS: : L4-L5, L5-S1. NEEDLE/CATHETER/GAUGE: : 17 . CANULA LENGTH: : 150 MM . ACTIVE TIP: : 4 MM . GROUNDING PAD PLACED ON AFFECTED SIDE (MUSCULAR AREA): : MEDIAL LEFT THIGH. 1 ST LEVEL: : L3,INITAL POSTIVE SENSORY RESPONE (50 HZ) 0.3,MOTOR RESPONSE (2 HZ-UP TO 3 VOLTS) 3.0 ,PRE-LOCAL IMPEDENCE READING OHMS 275 ,POST-LOCAL IMPEDENCE READING OHMS 385 ,DURING RF IMPEDENCE READING OHMS 406 , 2 ND LEVEL: : L4,INITIAL POSITIVE SENSORY RESPONSE (50 HZ) 0.5,MOTOR RESPONSE (2 HZ- UP TO 3 VOLTS) 3.0 ,PRE-LOCAL IMPEDENCE READING OHMS 288 ,POST-LOCAL IMEPEDENCE READING OHMS 365 ,DURING RF IMPEDENCE READING OHMS 311 , 3 RD LEVEL: : L5,INITIAL POSITIVE SENSORY RESPONSE (50 HZ) 0.2,MOTOR RESPONSE (2HZ- UP TO 3 VOLTS) 3.0 ,PRE- LOCAL IMPEDENCE READING OHMS 380 ,POST-LOCAL IMPEDENCE READING OHMS 247 ,DURING RF IMPEDENCE READING OHMS 185 , PRE PROCEDURE DIAGNOSES 1. LUMBAR SPONDYLOSIS. 2. LUMBOSACRAL SPONDYLOSIS POST PROCEDURE DIAGNOSES 1. LUMBAR SPONDYLOSIS. 2. LUMBOSACRAL SPONDYLOSIS PROCEDURE LEFT L4-L5 AND LEFT L5-S1 LUMBAR FACET RADIOFREQUENCY SURGEON DR. GALI LEWIS FUR NAILER NONE ANESTHESIA LOCAL PRE PROCEDURE REPORT THE PATIENT HAS HISTORY OF CHRONIC LOW BACK PAIN. I EVALUATED THE PATIENT AND REVIEWED THE CHART. I WENT OVER THE RISKS, ALTERNATIVES, AND BENEFITS ASSOCIATED WITH THIS PROCEDURE. I DISCUSSED THAT THE USE OF STEROIDS MAY CONTRIBUTE TO IMMUNOSUPPRESSION OF THE PATIENT'S BODY AGAINST INFECTIONS SUCH COVID-19. THE PATIENT IS AWARE OF THE POTENTIAL COMPLICATIONS ASSOCIATED WITH THIS VIRUS, INCLUDING, BUT NOT LIMITED TO, . THE PATIENT WOULD LIKE TO PROCEED AND GAVE CONSENT TO PERFORM THE PROCEDURE. THE PATIENT DENIES UNEXPLAINABLE WEIGHT LOSS, FEVER, CHILLS OR NEW CHANGES IN URINARY OR BOWEL CONTROL. THE PATIENT IS COVID-19 NEGATIVE DESCRIPTION OF PROCEDURE THE PATIENT WAS BROUGHT TO THE PROCEDURE ROOM AND PLACED IN THE PRONE POSITION. A TIMEOUT WAS PERFORMED WHERE LATERALITY AND THE SITE OF THE PROCEDURE WERE CHECKED AND CONFIRMED WITH EVERYONE IN THE ROOM. THE LUMBOSACRAL AREA WAS CLEANED WITH CHLORAPREP SOLUTION AND DRAPED ASEPTICALLY. THE PROCEDURE WAS DONE UNDER STERILE CONDITIONS. UNDER FLUOROSCOPIC GUIDANCE, TARGETS WERE SELECTED AT THE INTERSECTION OF THE LEFT TRANSVERSE PROCESS OF L4, L5 AND THE ALA OF S1 WITH ITS RESPECTIVE SUPERIOR ARTICULAR PROCESS. I CONFIRMED AGAIN WITH EVERYONE IN THE ROOM THE LATERALITY OF THE TARGET AT 1123. LIDOCAINE WAS USED TO NUMB THE SKIN AND THE SUBCUTANEOUS TISSUE BELOW IT. RADIOFREQUENCY CANNULAS, 17-GAUGE, 150 MM LONG WITH 4 MM ACTIVE TIP, WERE ADVANCED UNDER FLUOROSCOPIC GUIDANCE AND FOLLOWING PATIENT FEEDBACK UNTIL THE TARGET AREA WAS REACHED. POSITION OF THE CANNULA WAS VERIFIED WITH AP AND LATERAL VIEWS. AFTER PROPER POSITION OF THE CANNULA WAS ACHIEVED, WE WORKED WITH THE LEFT SELECTED MEDIAN BRANCHES OF L3, L4 AND THE DORSAL RAMI OF L5. WE MEASURED THE CORRESPONDING IMPEDANCES AND MOTOR RESPONSES INDICATED IN THE RADIOFREQUENCY WORK SHEET. POSITION OF THE CANNULA WAS VERIFIED AGAIN WITH AP AND LATERAL VIEWS. LIDOCAINE 1%, 2 ML, WAS INJECTED AT EACH LEVEL. RADIOFREQUENCY WAS DONE AT EACH LEVEL USING THE [employer] SYSTEM-- COOLED RF-- WITH A SETTING AT THE MACHINE OF 60 DEGREES WITH A TARGET TISSUE TEMPERATURE OF 80 TO 90 DEGREES FOR A MINIMUM OF 150 SECONDS. AFTER RADIOFREQUENCY WAS DONE, THE PATIENT RECEIVED BUPIVACAINE 0.125%,1 ML, WITH DEXAMETHASONE 3 MG AT EACH SITE. THERE WAS NO EVIDENCE OF BLOOD, PARESTHESIA OR CEREBROSPINAL FLUID DURING THE PROCEDURE. THE PATIENT WAS SENT TO THE RECOVERY ROOM. THE PATIENT WAS MOVING THE EXTREMITIES AND DOING WELL. EBL LESS THAN 5 ML. THERE WERE NO COMPLICATIONS DURING THE PROCEDURE. FLUOROSCOPY TIME WAS 1 MINUTE 32 SECONDS POST PROCEDURE NOTE THE PATIENT WILL BE SEEN IN A FOLLOW UP IN THE NEXT FEW WEEKS. INSTRUCTIONS WERE GIVEN, QUESTIONS WERE ANSWERED, AND THE PATIENT EXPRESSED UNDERSTANDING AND AGREES WITH THE PLAN. I, AYLIN SAAVEDRA, DOCUMENTED THE ABOVE INFORMATION ACTING A SCRIBE FOR DR. LEWIS. I HAVE REVIEWED THE ABOVE DOCUMENT, WRITTEN BY SHERIN VASQUES, AND I VERIFY THAT IT IS ACCURATE PROCEDURE CODES 40109 DESTROY LUMB/SAC FACET JNT, [place]: [place] [address] DESTROY L/S FACET JNT ADDL, MODIFIERS: LT DISPOSITION & COMMUNICATION FOLLOW UP FOLLOW UP WITH SAFETY AND SECURITY MANAGER (REASON: POST COOL RF L4-L5, L5-S1) ELECTRONICALLY SIGNED BY GALI LEWIS MD, MD ON 06/22/2020 AT 02:43 PM EDT DISCLAIMER : THIS IS A VISIT SUMMARY EXTRACTED FROM THE [employer] CHART. IT IS NOT A COPY OF THE [employer] PROGRESS NOTE. VINCENT
== END ==
LOC: M PAIN 10:00
PROVIDERS: ATTEND Anesthesiology
DX: M47.816 Spondylosis without myelopathy or radiculopathy, lumbar region (principal); I10 Essential (primary) hypertension; J30.9 Allergic rhinitis, unspecified; E55.9 Vitamin D deficiency, unspecified; G47.33 Obstructive sleep apnea (adult) (pediatric); I48.0 Paroxysmal atrial fibrillation; K21.9 Gastro-esophageal reflux disease without esophagitis; Z87.891 Personal history of nicotine dependence; Z79.01 Long term (current) use of anticoagulants; Z79.899 Other long term (current) drug therapy
CPT/HCPCS: 64635; 64636; J1100

== ENCOUNTER → 2020-06-14 | Outpatient (CLI) | payer MEDICARE, MEDICAID ==
[~2020-06-14] MED LIST changes: -BUPIVACAINE HCL 0.25% 30ML VIAL As Ordered ONE; -LIDOCAINE 1% SDV 30ML VIAL As Ordered ONE; -dexameTHASONE 10MG/1ML VIAL PRES.FREE (J1100 PER 1MG) As Ordered ONE; -diazePAM 2 MG TAB As Ordered ONE; -diphenhydrAMINE 25MG CAP As Ordered ONE; -oxyCODONE 5MG TAB As Ordered ONE
--- NOTE | 2020-06-15 10:53 | ECWPNPC ---
PATIENT NAME: NISHA MUNSON : 1955 GENDER: FEMALE VISIT DATE: 06/14/2020 DISCHARGE DATE: 06/14/20 1106 VISIT LOCKED DATE TIME: PHYSICIAN: VIOLETA TITUS PHYSICIAN PAGER NO: ACTIVE RESOURCE: VIOLETA TITUS REASON FOR APPOINTMENT 1. POST COOL RF L3-L4, L4-L5 HISTORY OF PRESENT ILLNESS GENERAL: HERE FOR POST PROCEDURE FOLLOW-UP. HAD LEFT L3-4, L4-5 COOL RADIOFREQUENCY ON 05/31/2020. REPORTING MARKED REDUCTION IN PAIN THAT CONTINUES TODAY. CHIEF AREA OF PAIN IS RIGHT LOW BACK. STATES RIGHT LOW BACK PAIN IS WORSE SINCE NOTICING IMPROVEMENT WITH LEFT LOW BACK PAIN. REVIEWED TREATMENT PLAN. -. FALL RISK SCREENING: SCREENING :NO FALLS REPORTED IN THE LAST YEAR PAIN SCREENING: PATIENT HAS A COMPLAINT OF ACUTE OR CHRONIC PAIN :YES LOCATION OF PAIN:LOW BACK, RIGHT HIP INTENSITY OF PAIN (SCALE OF 1 TO 10):7 WHAT DOES YOUR PAIN FEEL LIKE:ACHING DURATION:CONTINOUS, CONSTANT PAIN IS INCREASED BY:ACTIVITIES PAIN IS DECREASED BY:USE OF PAIN MEDICATIONS TREATMENT/MEDICATIONS USED TO MANAGE PAIN:OPIOIDS LEVEL OF RELIEF FROM PAIN TREATMENTS IN THE PAST:100% NURSING NOTE: -. PAIN CENTER INTAKE QUESTIONS: DO YOU HAVE A HISTORY OF MRSA? :YES STOMACH DO YOU TAKE A BLOOD THINNERS? :YES XARELTO FOR A-FIB DO YOU HAVE ANY BLEEDING DISORDERS? :NO ANY NEW NUMBNESS OR WEAKNESS IN YOUR LEGS OR ARMS? :NO ANY PACEMAKER,DEFIBRILLATOR, OR DORSAL COLUMN STIMULATOR? :YES LOOP RECORDER DO YOU HAVE ANY RASHES OR OPEN SORES? :YES RASH BETWEEN LEGS ARE YOU ALLERGIC TO IV DYE? :NO ARE YOU DIABETIC? :NO ANY NEW PROBLEMS WITH YOUR MEDICATIONS? :NO HAVE YOU RECEIVED A VACCINE IN THE PAST 30 DAYS? :NO DO YOU PLAN TO RECEIVE A VACCINE IN THE NEXT 21 DAYS? :NO DO YOU NEED ANY PRESCRIPTION? :NO DO YOU TAKE ANY IMMUNOSUPPRESSIVE MEDICATIONS? :NO IS THERE A CHANCE YOU COULD BE ? :NO ARE YOU BREAST FEEDING? :NO CURRENT MEDICATIONS TAKING VITAMIN B12 1000 MCG SC . SC EVERY 8 WEEKS TAKING PROAIR HFA 108 (90 BASE) MCG/ACT AEROSOL SOLUTION 2 PUFFS NEEDED INHALATION QID PRN TAKING FERROUS GLUCONATE 325 MG CAPSULE 1 TABLET ORALLY TWICE DAILY TAKING VITAMIN D 5000 TABLET 1 TABLET ORALLY TID TAKING CALCIUM 600+D HIGH POTENCY 600-400 MG-UNIT TABLET 1 TABLET WITH FOOD ORALLY TWICE A DAY TAKING RECLAST 5 MG/100ML SOLUTION DIRECTED INTRAVENOUS TAKING SUCRALFATE 1 GM TABLET 1 TABLET ON AN EMPTY STOMACH ORALLY AC TID TAKING PANTOPRAZOLE SODIUM 40 MG TABLET DELAYED RELEASE 1 TABLET ORALLY BID TAKING XARELTO 20 MG TABLET 1 TAB(S) ORAL AT DINNER TIME TAKING NYSTATIN [id number] UNITS/G TOPICAL OINTMENT . APPLIED TOPICALLY DIRECTED BID X 10 DAYS C FLARES TAKING CLARITIN 10 MG TABLET 1 TABLET ORALLY ONCE A DAY TAKING COMPRESSION STOCKINGS 30-40 MMHG KNEE HIGH I87.2 DAILY TAKING TYLENOL 8 HOUR 650 MG TABLET EXTENDED RELEASE 2 TABLETS NEEDED ORALLY AKES 500 MG TAKING OXYCODONE-ACETAMINOPHEN 10-325 MG TABLET 1 TABLET NEEDED ORALLY EVERY 8 HRS NOT-TAKING METOPROLOL SUCCINATE 25 MG CAPSULE ER 24 HOUR SPRINKLE 1 CAPSULE ORALLY ONCE A DAY FOR SBP>140 NOT-TAKING DICLOFENAC SODIUM 1 % GEL 4 GM TRANSDERMAL FOUR TIMES A DAY TO B KNEES NOT-TAKING OXYCODONE HCL 10 MG TABLET 1 TABLET NEEDED ORALLY 3 TIMES A DAY NOT-TAKING SUCRALFATE 1 GM TABLET 1 TABLET ON AN EMPTY STOMACH ORALLY THREE TIMES DAILY, NOTES: DUPLICATE NOT-TAKING PANTOPRAZOLE SODIUM 40 MG TABLET DELAYED RELEASE TAKE 1 TABLET BY MOUTH TWICE DAILY , NOTES: DUPLICATE MEDICATION LIST REVIEWED AND RECONCILED WITH THE PATIENT PAST MEDICAL HISTORY 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 12/2008-SETTER HYPERTENSION, ESSENTIAL ALLERGIC RHINITIS H/O IMMUNOTHERAPY X >10Y-STOPPED 2 INADEQUATE RESPONSE NONALCOHOLIC FATTY LIVER DISEASE C MILD CHRONIC ELEVATED ALP OBESITY, MORBID STATUS POST R-Y GASTRIC BYPASS 06/2006, 12/29/15-MARYJANE VITAMIN D DEFICIENCY ANEMIA, IRON/FE DEFICIENCY HISTORY OF RIGHT LOWER EXTREMITY DVT X2 IMPAIRED FASTING GLUCOSE HISTORY OF NICOTINE ADDICTION-SMOKED 7 CIGS QD X 10Y, QUIT AT 28 YO-04/2012 FEV1 2.3L (99%)/RATIO 108% GERD-11/2014 NORMAL EGD-REINDL TUBULAR ADENOMA BY 11/2014 COLONOSCOPY-REINDL ATRIAL FIBRILLATION, [id number] POD 2 TKR 05/2015-SP PULMONARY VEIN ISOLATION, ILR [id number]-90/9/19 LISA, MODERATE-07/2017 HST JLUIS 17 C SAO2 TO 88% HO MRSA ABSCESS- HAS BEEN TREATED AND TESTED NEGATIVE LUMBAR DJD-11/2017 MRI L5/S1 BULGE EXTENDING INTO B NF DISPLACING R S1 ROOT, MILD L4/5 CCS R T5 ZOSTER RXED C VALCYC/PRED 05/2018 IMPINGEMENT AND SPURRING LEFT SHOULDER ALLERGIES PENICILLIN (FOR ALLERGIES USE ONLY): RASH - ALLERGY ERYTHROMYCIN: RASH - ALLERGY DOXYCYCLINE HYCLATE: RASH - ALLERGY TALWIN: RASH HIVES - ALLERGY NOVACAINE (PT NOTES SHE WAS OK WITH RECENT LIDOCAI: SWELLING - ALLERGY BACTRIM: RASH - ALLERGY TETRACYCLINE HCL: HIVES - ALLERGY VICODIN: ITCH - ALLERGY SINGULAIR: GERD - SIDE EFFECTS CODEINE SULFATE: UNCONSCIOUSNESS - ALLERGY GABAPENTIN: IRRITABILITY/AGGRESSIVENESS - SIDE EFFECTS LYRICA: SHAKING /FORGETFULNESS AMITRIPTYLINE HCL: MEMORARY ISSUES - SIDE EFFECTS ADHESIVE: RED,IRRITATION IF ON LONG TIME - SIDE EFFECTS SURGICAL HISTORY I&D ABDOMEN ABSCESS 05/2010 OPEN GASTRIC BYPASS 2007 PARTIAL HYSTERECTOMY 2008 RIGHT SHOULDER SURGERY (X2) 2008 AND 2009 APPENDECTOMY AGE 9 RIGHT WRIST SURGERY X 2 1980S THROAT TUMOR AGE 16 SURGERY FOR DEVIATED SEPTUM AGE 18 AD [id number] 02/2014 R TKR- DR. HUYNH-[place] 06/20/15 GASTRIC BYPASS REVISION-MARYJANE 12/29/15 L TKR-DR. HUYNH-SOS 01/01/17 ROBOTIC VENTRAL HERNIA REPAIR 2 SURGICAL VENTRAL HERNIA-MARYJANE 05/16/17 HAS IVC FILTER IMPLANTED CARDIAC MONTIOR 06/03/19 FAMILY HISTORY FATHER: 66 YRS, KIDNEY FAILURE MOTHER: 78 YRS, HTN, PACEMAKER, DIAGNOSED WITH HYPERTENSION SIBLINGS: ALIVE, HYPERTENSION, DIABETES MATERNAL GRAND FATHER: , BRAIN CANCER MATERNAL GRAND MOTHER: , COLON CARCINOMA 1 SON(S) , 2 DAUGHTER(S) . MGF AND COUSIN HAD COLON CA.\\\\NDAUGHTERS-CHRONIC BACK PAIN\\\\NSON-HAD THYROIDECTOMY--UNSURE OF DIAGNOSIS. SOCIAL HISTORY GENERAL: TOBACCO USE ARE YOU A:FORMER SMOKER HOW LONG HAS IT BEEN SINCE YOU LAST SMOKED?> 10 YEARS LATEX QUESTIONNAIRE LATEX ALLERGY : HAVE YOU EVER DEVELOPED ANY TYPE OF REACTION AFTER HANDLING LATEX PRODUCTS SUCH RUBBER GLOVES, CONDOMS, DIAPHRAGMS, BALLOONS, SOCKS, OR UNDERWEAR?NO ADHESIVE SENSITIVITY LATEX ALLERGY : HAVE YOU EVER DEVELOPED ANY TYPE OF REACTION DURING OR AFTER DENTAL APPOINTMENT, VAGINAL/RECTAL EXAMINATION, SURGICAL PROCEDURE, OR ANY OTHER EXPOSURE?NO LATEX RISK : HAVE YOU EVER HAD ANY DIFFICULTY BREATHING OR HIVES AFTER EATING OR HANDLING ANY FRUITS, OR VEGETABLES; SUCH KIWI, BANANAS, STONE FRUITS, OR CHESTNUTSNO LATEX RISK : DO YOU HAVE A PREVIOUS PERSONAL HISTORY OF MORE THAN NINE SURGERIES, SPINA BIFIDA, OR REPEATED CATHERIZATIONS? YES - PLEASE INDICATE : > 9 SURGERIES LATEX RISK : ARE YOU FREQUENTLY EXPOSED TO LATEX PRODUCTS IN YOUR OCCUPATION?NO DATE ASKED : 05/31/2020 BMI CARE GOAL FOLLOW-UP ABOVE NORMAL BMI FOLLOW-UPLIFESTYLE EDUCATION REGARDING DIET ALCOHOL SCREENING DID YOU HAVE A DRINK CONTAINING ALCOHOL IN THE PAST YEAR?NO POINTS0 INTERPRETATIONNEGATIVE RECREATIONAL DRUG USE DRUG USE?NO CAFFEINE CAFFEINE USE?NO SEXUAL HX HAD SEX IN THE LAST 12 MONTHS (VAGINAL, ORAL, OR ANAL)?NO LMP:HYSTER HAVE YOU EVER HAD AN STD?NO HIV / HEP-C SCREENING HIV TEST OFFERED TO PATIENT:YES DATE OFFERED:11/05/2017 TEST ACCEPTED:NO HEP-C TEST OFFERED TO PATIENT:YES DATE OFFERED:11/22/2016 REASON:PATIENT DECLINED TEST ACCEPTED:NO REASON:PATIENT DECLINED BROCHURE PROVIDED TO PATIENTYES [employer] [id number] SABIANIST LANGUAGE LANGUAGES SPOKEN:KYRGYZ EDUCATION LEVEL OF EDUCATION:NOT FINISHED COLLEGE LEARNING BARRIERS / SPECIAL NEEDS CHANGE FROM LAST VISIT?NO BARRIERS TO LEARNING?NO HEARING IMPAIRED?NO VISION IMPAIRED?YES COGNITIVELY IMPAIRED?NO :CORRECTIVE LENSES READINESS TO LEARN?YES LEARNING PREFERENCES?NO LEARNING CAPABILITIES PRESENT?YES EMOTIONAL BARRIERS?NO SPECIAL DEVICES?YES :CANE, WALKER, OTHER WALKING CANE PEN RIDER 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 DIET: REGULAR. EXERCISE: NO REGULAR EXERCISE, SMALL WALKS. MARITAL STATUS: . PAIN CLINIC PFS, CLERGY, PUBLIC HEALTH REFERRALS PFS REFERRAL NEEDED?NO CLERGY REFERRAL NEEDED?NO PUBLIC HEALTH REFERRAL NEEDED?NO WAS THE PROVIDER NOTIFIED OF ANY PERTINENT INFO?YES HAS THE PATIENT BEEN EDUCATED REGARDING HIS/HER PLAN OF CARE?YES HAS THE PATIENT BEEN EDUCATED REGARDING PAIN, THE RISK FOR PAIN, THE IMPORTANCE OF EFFECTIVE PAIN MANAGEMENT, AND THE PAIN ASSESSMENT PROCESS?YES ADVANCE DIRECTIVE ADVANCE DIRECTIVE DISCUSSED WITH PATIENT:YES PT. HAS HCP, DAUGHTER DARIO PICKETT [phone], DAUGHTER DEANDRA BECKHAM [phone] HOSPITALIZATION/MAJOR DIAGNOSTIC PROCEDURE I&D MRSA ABDOMEN ABSCESS 05/2010 ACUTE DYSPNEA/HYPOXIA ([facility] PRIOR NORMAL MEAL)-ELISA AWOKE 530 2 WANDA, THEN IMMEDIATELY CAUSED COUGH/DYSPNEA-FELT ASPIRATION PN, IN ED RECEIVED ALBUTEROL NEB X 3 THEN WENT INTO [facility] C RVR, CONVERTED IN ED C IV AMIODARONE 150 X 2, -BLE DVT US,- CXR X 2 (09/09, 09/09-09/11/14 A. FIB WITH SURGERIES SURGERIES REVIEW OF SYSTEMS CONSTITUTIONAL: ANY RECENT FEVER NO . CHILLS NO . WEIGHT CHANGE OF UNKNOWN REASONS NO . GASTROENTEROLOGY: NEW UNEXPLAINABLE CHANGES IN BOWEL CONTROL NO . CONSTIPATION NO . GENITOURINARY: ANY NEW CHANGE IN BLADDER CONTROL? NO . NEUROLOGY: NEW ONSET DIZZINESS OR NEUROLOGICAL CHANGES NOT MENTIONED NO . NEW NUMBNESS OR PAIN PATTERNS NOT MENTIONED AND PERTINENT TO TODAY'S VISIT NO . CARDIOLOGY: NEW CHEST PRESSURE NO . NEW CHEST PAIN NO . RESPIRATORY: UNEXPLAINABLE COUGH NO . NEW SHORTNESS OF BREATH NO . VITAL SIGNS WT 272.6 LBS, HT 63 IN, BMI 48.28 INDEX, BP 163/69 MM HG, HR 83 /MIN, RR 18 /MIN, TEMP 97.5 F, OXYGEN SAT % 99%, SAFE IN ENV? (Y/N) Y, NA INITIALS AW 1020, REVIEWED BY: EM. EXAMINATION GENERAL EXAMINATION: GENERAL AWAKE,ALERT ,PLEASANT . PSYCH AFFECT NORMAL . LUNGS: LUNG DAVID ARE CLEAR TO AUSCULTATION BILATERALLY. GOOD MOVEMENT OF AIR . HEART: S1, S2 IN A REGULAR RATE AND RHYTHM. NO SIGNIFICANT MURMURS, RUBS OR GALLOPS NOTED . LUMBAR: SPECIFIC POINT TENDERNESS OVER RIGHT L3-4, L4-5 LUMBAR FACETS WITH FACET LOADING. NEUROLOGIC EXAM: NORMAL SENSATION LIGHT TOUCH BILAT. LOWER EXTREMITIES . DIAGNOSTIC TESTS REVIEWEDMRI L/S SPINE 2018 . ASSESSMENTS OTHER CHRONIC PAIN - G89.29 (PRIMARY) LUMBAR SPONDYLOSIS - M47.816 TREATMENT OTHER CHRONIC PAIN PAIN PROCEDURE LOGMARKED REDUCTION IN PAIN CONTINUES TODAYDATE OF [id number]/06/20PROCEDURE:COOL RADIOFREQUENCY L3/L4; L4/Q5WFRKCJ OF PRE SEDATEBENADRYL 5MG; VALIUM 2MG; OXYCODONE 10MG NOTES: HOLD XARELTO 3 DAYS PRE-PROCEDURE SCHEDULE PROCEDURE ON DAY 4 RIGHT L3-4, L4-5 LUMBAR DIAGNOSTIC FACET BLOCK. PROCEDURE CODES [id number] ESTABILISHED PATIENT [facility]ILITY CHARGE DISPOSITION & COMMUNICATION FOLLOW UP POST PROCEDURE (REASON: RIGHT L3-4, L4-5 LUMBAR DIAGNOSTIC FACET BLOCK) ELECTRONICALLY SIGNED BY YVETTE HINOJOSA ON 06/15/2020 AT 09:13 AM EDT DISCLAIMER : THIS IS A VISIT SUMMARY EXTRACTED FROM THE [employer] CHART. IT IS NOT A COPY OF THE [employer] PROGRESS NOTE. VINCENT
== END ==
LOC: M PAIN 10:15
PROVIDERS: ATTEND Nurse Practitioner Family
DX: M47.816 Spondylosis without myelopathy or radiculopathy, lumbar region (principal); G89.29 Other chronic pain; I10 Essential (primary) hypertension; E55.9 Vitamin D deficiency, unspecified; D50.9 Iron deficiency anemia, unspecified; K21.9 Gastro-esophageal reflux disease without esophagitis; G47.33 Obstructive sleep apnea (adult) (pediatric); Z86.14 Personal history of Methicillin resistant Staphylococcus aureus infection; Z86.718 Personal history of other venous thrombosis and embolism; Z98.84 Bariatric surgery status; Z96.653 Presence of artificial knee joint, bilateral; Z87.891 Personal history of nicotine dependence; Z88.0 Allergy status to penicillin; Z88.1 Allergy status to other antibiotic agents; Z88.4 Allergy status to anesthetic agent; Z88.5 Allergy status to narcotic agent; Z88.8 Allergy status to other drugs, medicaments and biological substances; Z91.09 Other allergy status, other than to drugs and biological substances; E66.01 Morbid (severe) obesity due to excess calories; Z68.42 Body mass index [BMI] 45.0-49.9, adult; Z79.01 Long term (current) use of anticoagulants; Z79.899 Other long term (current) drug therapy

== ENCOUNTER 2020-06-27 15:06 | Outpatient (CLI) | payer MEDICAID, MEDICARE ==
[~2020-06-27] VITALS: Ht 160 cm; Wt 79.5 kg
[2020-06-27 15:15] VITALS: BP 149/70
[2020-06-27] MEDS ORDERED: ZOLEDRONIC ACID 5 MG in IV 1 EA IV ONE (15:30)
[2020-06-27 16:10] VITALS: BP 129/73
== END 2020-06-27 16:10 | disposition home or self-care (01) ==
LOC: M INFU 15:06
PROVIDERS: ATTEND Family Medicine
DX: M85.80 Other specified disorders of bone density and structure, unspecified site (principal)
CPT/HCPCS: 96365; J3489

== ENCOUNTER → 2020-06-30 | Outpatient (CLI) | payer MEDICARE, MEDICAID | LOC: M LABSMTC 09:33 | PROVIDERS: ATTEND Anesthesiology | DX: Z20.828 Contact with and (suspected) exposure to other viral communicable diseases (principal) | CPT/HCPCS: C9803; U0003 ==

== ENCOUNTER → 2020-07-05 | Outpatient (CLI) | payer MEDICARE, MEDICAID ==
[~2020-07-05] MED LIST changes: +BUPIVACAINE HCL 0.25% 30ML VIAL As Ordered ONE; +ISOVUE-M 300 61% 15ML VIAL As Ordered ONE; +LIDOCAINE 1% SDV 30ML VIAL As Ordered ONE
--- NOTE | 2020-07-05 13:55 | REP ---
INDICATION: DIAGNOSTIC RIGHT LUMBAR FACET BLOCK #2. COMPARISON: None. TECHNIQUE: Three images from C-arm fluoroscopy provided to Dr. Pisano of the pain clinic. FINDINGS: Three needles project over lumbar vertebral bodies. [id number] was limited so that the levels are difficult to precisely determine. There is a vena cava filter projecting adjacent to the upper most of the vertebral bodies with the needle at the facets. I suspect this is L2 through L4. The 2nd image shows a needle of these level with contrast adjacent in the 3rd image shows a direct PA view. Fluoroscopy time 24.2 seconds. IMPRESSION: Status post right facet injections. <Electronically signed by Mitchell Vail > 07/05/20 [id number]
--- NOTE | 2020-07-12 03:09 | ECWPNPC ---
PATIENT NAME: NISHA MUNSON : 1955 GENDER: FEMALE VISIT DATE: 07/05/2020 DISCHARGE DATE: 07/05/20 1241 VISIT LOCKED DATE TIME: PHYSICIAN: GALI LEWIS MD PHYSICIAN PAGER NO: ACTIVE RESOURCE: GALI LEWIS MD REASON FOR APPOINTMENT 1. RIGHT L3-4, L4-5 LUMBAR DIAGNOSTIC FACET BLOCK HISTORY OF PRESENT ILLNESS GENERAL: -. FALL RISK SCREENING: SCREENING :NO FALLS REPORTED IN THE LAST YEAR PAIN SCREENING: PATIENT HAS A COMPLAINT OF ACUTE OR CHRONIC PAIN :YES LOCATION OF PAIN:LOW BACK INTENSITY OF PAIN (SCALE OF 1 TO 10):8 WHAT DOES YOUR PAIN FEEL LIKE:ACHING, CONTINOUS DURATION:CONTINOUS, CONSTANT, AWAKENS FROM SLEEP PAIN IS INCREASED BY:ACTIVITIES PAIN IS DECREASED BY:OTHERS NOTHING HELPS NURSING NOTE: -. PAIN CENTER INTAKE QUESTIONS: DO YOU HAVE A HISTORY OF MRSA? :YES HAS HAD ONE NEGATIVE CULTURE SINCE DO YOU TAKE A BLOOD THINNERS? :YES XARELTO DAILY- LAST DOSE 07/01/2020 DO YOU HAVE ANY BLEEDING DISORDERS? :NO ANY NEW NUMBNESS OR WEAKNESS IN YOUR LEGS OR ARMS? :NO ANY PACEMAKER,DEFIBRILLATOR, OR DORSAL COLUMN STIMULATOR? :NO LOOP RECORDER DO YOU HAVE ANY RASHES OR OPEN SORES? :YES GROIN AREA - CHRONIC ARE YOU ALLERGIC TO IV DYE? :NO ARE YOU DIABETIC? :NO ANY NEW PROBLEMS WITH YOUR MEDICATIONS? :NO HAVE YOU RECEIVED A VACCINE IN THE PAST 30 DAYS? :NO DO YOU PLAN TO RECEIVE A VACCINE IN THE NEXT 21 DAYS? :NO DO YOU TAKE ANY IMMUNOSUPPRESSIVE MEDICATIONS? :NO ANY HISTORY OF SEIZURES? :NO ANY HISTORY OF CARDIAC ISSUES OR EVENTS? :NO DO YOU HAVE SLEEP APNEA? :YES DO YOU WEAR A CPAP?YES ANY RECENT HEAD INJURY? :NO DO YOU HAVE ANY NEW INFECTIONS? :NO IS THERE A CHANCE YOU COULD BE ? :NO ARE YOU BREAST FEEDING? :NO WHEN DID YOU LAST EAT? : 07/04 2030 WHEN DID YOU LAST DRINK? : 07/05 800 WHAT DID YOU LAST DRINK? : WATER NAME OF PERSON DRIVING YOU HOME? : DAUGHTER-DARIO DO YOU HAVE ANY OTHER QUESTIONS OR CONCERNS? : NONE CURRENT MEDICATIONS TAKING VITAMIN B12 1000 MCG SC . SC EVERY 8 WEEKS, NOTES: 2 WEEKS AGO TAKING PROAIR HFA 108 (90 BASE) MCG/ACT AEROSOL SOLUTION 2 PUFFS NEEDED INHALATION QID PRN, NOTES: NONE RECENT TAKING FERROUS GLUCONATE 325 MG CAPSULE 1 TABLET ORALLY TWICE DAILY, NOTES: 07/04 2100 TAKING VITAMIN D 5000 TABLET 1 TABLET ORALLY TID, NOTES: 07/05 800 TAKING CALCIUM 600+D HIGH POTENCY 600-400 MG-UNIT TABLET 1 TABLET WITH FOOD ORALLY TWICE A DAY, NOTES: 07/04 2100 TAKING RECLAST 5 MG/100ML SOLUTION DIRECTED INTRAVENOUS , NOTES: ANNUALLY 06/27/2020 TAKING SUCRALFATE 1 GM TABLET 1 TABLET ON AN EMPTY STOMACH ORALLY AC TID, NOTES: 07/05 800 TAKING PANTOPRAZOLE SODIUM 40 MG TABLET DELAYED RELEASE 1 TABLET ORALLY BID, NOTES: 07/05 TAKING XARELTO 20 MG TABLET 1 TAB(S) ORAL AT DINNER TIME, NOTES: LAST DOSE 07/01/2020 TAKING NYSTATIN 547206 UNITS/G TOPICAL OINTMENT . APPLIED TOPICALLY DIRECTED BID X 10 DAYS C FLARES, NOTES: 07/05 800 TAKING CLARITIN 10 MG TABLET 1 TABLET ORALLY ONCE A DAY, NOTES: 07/04 800 TAKING COMPRESSION STOCKINGS 30-40 MMHG KNEE HIGH I87.2 DAILY TAKING TYLENOL 8 HOUR 650 MG TABLET EXTENDED RELEASE 2 TABLETS NEEDED ORALLY AKES 500 MG, NOTES: 07/05 800 TAKING OXYCODONE-ACETAMINOPHEN 10-325 MG TABLET 1 TABLET NEEDED ORALLY EVERY 8 HRS, NOTES: 07/04 600 NOT-TAKING METOPROLOL SUCCINATE 25 MG CAPSULE ER 24 HOUR SPRINKLE 1 CAPSULE ORALLY ONCE A DAY FOR SBP>140 NOT-TAKING DICLOFENAC SODIUM 1 % GEL 4 GM TRANSDERMAL FOUR TIMES A DAY TO B KNEES NOT-TAKING OXYCODONE HCL 10 MG TABLET 1 TABLET NEEDED ORALLY 3 TIMES A DAY DISCONTINUED SUCRALFATE 1 GM TABLET 1 TABLET ON AN EMPTY STOMACH ORALLY THREE TIMES DAILY, NOTES: DUPLICATE DISCONTINUED PANTOPRAZOLE SODIUM 40 MG TABLET DELAYED RELEASE TAKE 1 TABLET BY MOUTH TWICE DAILY , NOTES: DUPLICATE MEDICATION LIST REVIEWED AND RECONCILED WITH THE PATIENT PAST MEDICAL HISTORY 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 12/2008-SETTER HYPERTENSION, ESSENTIAL ALLERGIC RHINITIS H/O IMMUNOTHERAPY X >10Y-STOPPED 2 INADEQUATE RESPONSE NONALCOHOLIC FATTY LIVER DISEASE C MILD CHRONIC ELEVATED ALP OBESITY, MORBID STATUS POST R-Y GASTRIC BYPASS 06/2006, 12/29/15-MARYJANE VITAMIN D DEFICIENCY ANEMIA, IRON/FE DEFICIENCY HISTORY OF RIGHT LOWER EXTREMITY DVT X2 IMPAIRED FASTING GLUCOSE HISTORY OF NICOTINE ADDICTION-SMOKED 7 CIGS QD X 10Y, QUIT AT 28 YO-04/2012 FEV1 2.3L (99%)/RATIO 108% GERD-11/2014 NORMAL EGD-REINDL TUBULAR ADENOMA BY 11/2014 COLONOSCOPY-REINDL ATRIAL FIBRILLATION, [id number]-HEE-[id number] POD 2 TKR 05/2015-SP PULMONARY VEIN ISOLATION, ILR [id number]-08/9/19 LISA, MODERATE-07/2017 HST JLUIS 17 C SAO2 TO 88% HO MRSA ABSCESS- HAS BEEN TREATED AND TESTED NEGATIVE LUMBAR DJD-11/2017 MRI L5/S1 BULGE EXTENDING INTO B NF DISPLACING R S1 ROOT, MILD L4/5 CCS R T5 ZOSTER RXED C VALCYC/PRED 05/2018 IMPINGEMENT AND SPURRING LEFT SHOULDER ALLERGIES PENICILLIN (FOR ALLERGIES USE ONLY): RASH - ALLERGY ERYTHROMYCIN: RASH - ALLERGY DOXYCYCLINE HYCLATE: RASH - ALLERGY TALWIN: RASH HIVES - ALLERGY NOVACAINE (PT NOTES SHE WAS OK WITH RECENT LIDOCAI: SWELLING - ALLERGY BACTRIM: RASH - ALLERGY TETRACYCLINE HCL: HIVES - ALLERGY VICODIN: ITCH - ALLERGY SINGULAIR: GERD - SIDE EFFECTS CODEINE SULFATE: UNCONSCIOUSNESS - ALLERGY GABAPENTIN: IRRITABILITY/AGGRESSIVENESS - SIDE EFFECTS LYRICA: SHAKING /FORGETFULNESS AMITRIPTYLINE HCL: MEMORARY ISSUES - SIDE EFFECTS ADHESIVE: RED,IRRITATION IF ON LONG TIME - SIDE EFFECTS SURGICAL HISTORY I&D ABDOMEN ABSCESS 05/2010 OPEN GASTRIC BYPASS 2007 PARTIAL HYSTERECTOMY 2008 RIGHT SHOULDER SURGERY (X2) 2008 AND 2009 APPENDECTOMY AGE 9 RIGHT WRIST SURGERY X 2 1980S THROAT TUMOR AGE 16 SURGERY FOR DEVIATED SEPTUM AGE 18 AD [id number] 02/2014 R TKR- DR. HUYNH-[place] 06/20/15 GASTRIC BYPASS REVISION-MARYJANE 12/29/15 L TKR-DR. HUYNH-SOS 01/01/17 ROBOTIC VENTRAL HERNIA REPAIR 2 SURGICAL VENTRAL HERNIA-MARYJANE 05/16/17 HAS IVC FILTER IMPLANTED CARDIAC MONTIOR 06/03/19 FAMILY HISTORY FATHER: 66 YRS, KIDNEY FAILURE MOTHER: 78 YRS, HTN, PACEMAKER, DIAGNOSED WITH HYPERTENSION SIBLINGS: ALIVE, HYPERTENSION, DIABETES MATERNAL GRAND FATHER: , BRAIN CANCER MATERNAL GRAND MOTHER: , COLON CARCINOMA 1 SON(S) , 2 DAUGHTER(S) . MGF AND COUSIN HAD COLON CA.\\\\NDAUGHTERS-CHRONIC BACK PAIN\\\\NSON-HAD THYROIDECTOMY--UNSURE OF DIAGNOSIS. SOCIAL HISTORY GENERAL: TOBACCO USE ARE YOU A:FORMER SMOKER HOW LONG HAS IT BEEN SINCE YOU LAST SMOKED?> 10 YEARS LATEX QUESTIONNAIRE LATEX ALLERGY : HAVE YOU EVER DEVELOPED ANY TYPE OF REACTION AFTER HANDLING LATEX PRODUCTS SUCH RUBBER GLOVES, CONDOMS, DIAPHRAGMS, BALLOONS, SOCKS, OR UNDERWEAR?NO ADHESIVE SENSITIVITY LATEX ALLERGY : HAVE YOU EVER DEVELOPED ANY TYPE OF REACTION DURING OR AFTER DENTAL APPOINTMENT, VAGINAL/RECTAL EXAMINATION, SURGICAL PROCEDURE, OR ANY OTHER EXPOSURE?NO LATEX RISK : HAVE YOU EVER HAD ANY DIFFICULTY BREATHING OR HIVES AFTER EATING OR HANDLING ANY FRUITS, OR VEGETABLES; SUCH KIWI, BANANAS, STONE FRUITS, OR CHESTNUTSNO LATEX RISK : DO YOU HAVE A PREVIOUS PERSONAL HISTORY OF MORE THAN NINE SURGERIES, SPINA BIFIDA, OR REPEATED CATHERIZATIONS? YES - PLEASE INDICATE : > 9 SURGERIES LATEX RISK : ARE YOU FREQUENTLY EXPOSED TO LATEX PRODUCTS IN YOUR OCCUPATION?NO DATE ASKED : 07/04/2020 BMI CARE GOAL FOLLOW-UP ABOVE NORMAL BMI FOLLOW-UPLIFEYLE EDUCATION REGARDING DIET ALCOHOL SCREENING DID YOU HAVE A DRINK CONTAINING ALCOHOL IN THE PAST YEAR?NO POINTS0 INTERPRETATIONNEGATIVE RECREATIONAL DRUG USE DRUG USE?NO CAFFEINE CAFFEINE USE?NO SEXUAL HX HAD SEX IN THE LAST 12 MONTHS (VAGINAL, ORAL, OR ANAL)?NO LMP:HYSTER HAVE YOU EVER HAD AN STD?NO HIV / HEP-C SCREENING HIV TEST OFFERED TO PATIENT:YES DATE OFFERED:11/05/2017 TEST ACCEPTED:NO HEP-C TEST OFFERED TO PATIENT:YES DATE OFFERED:11/22/2016 REASON:PATIENT DECLINED TEST ACCEPTED:NO REASON:PATIENT DECLINED BROCHURE PROVIDED TO PATIENTYES JEWISH ALQEXLEY84 MORAVIAN LANGUAGE LANGUAGES SPOKEN:CROATIAN EDUCATION LEVEL OF EDUCATION:NOT FINISHED COLLEGE LEARNING BARRIERS / SPECIAL NEEDS CHANGE FROM LAST VISIT?NO BARRIERS TO LEARNING?NO HEARING IMPAIRED?NO VISION IMPAIRED?YES :CORRECTIVE LENSES COGNITIVELY IMPAIRED?NO READINESS TO LEARN?YES LEARNING PREFERENCES?NO LEARNING CAPABILITIES PRESENT?YES EMOTIONAL BARRIERS?NO SPECIAL DEVICES?YES :CANE, WALKER, OTHER WALKING CANE ADMINISTRATIVE SERVICES COORDINATOR 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 DIET: REGULAR. EXERCISE: NO REGULAR EXERCISE, SMALL WALKS. MARITAL STATUS: . PAIN CLINIC PFS, CLERGY, PUBLIC HEALTH REFERRALS PFS REFERRAL NEEDED?NO CLERGY REFERRAL NEEDED?NO PUBLIC HEALTH REFERRAL NEEDED?NO HAS THE PATIENT BEEN EDUCATED REGARDING HIS/HER PLAN OF CARE?YES HAS THE PATIENT BEEN EDUCATED REGARDING PAIN, THE RISK FOR PAIN, THE IMPORTANCE OF EFFECTIVE PAIN MANAGEMENT, AND THE PAIN ASSESSMENT PROCESS?YES ADVANCE DIRECTIVE ADVANCE DIRECTIVE DISCUSSED WITH PATIENT:YES PT. HAS HCP, DAUGHTER DARIO MCKEON-JOSH [phone], DAUGHTER DEANDRA BECKHAM [phone] HOSPITALIZATION/MAJOR DIAGNOSTIC PROCEDURE I&D MRSA ABDOMEN ABSCESS 05/2010 ACUTE DYSPNEA/HYPOXIA ([facility]HS PRIOR NORMAL MEAL)-ELISA AWOKE 530 2 WANDA, THEN IMMEDIATELY CAUSED COUGH/DYSPNEA-FELT ASPIRATION PN, IN ED RECEIVED ALBUTEROL NEB X 3 THEN WENT INTO AFIB C RVR, CONVERTED IN ED C IV AMIODARONE 150 X 2, -BLE DVT US,- CXR X 2 (09/09, 09/09-09/11/14 A. FIB WITH SURGERIES SURGERIES VITAL SIGNS WT 277.2 LBS, HT 63 IN, BMI 49.10 INDEX, BP 164/70 MM HG, HR 67 /MIN, RR 18 /MIN, TEMP 96.6 F, OXYGEN SAT % 100%, SAFE IN ENV? (Y/N) Y, NA INITIALS AW 1033, REVIEWED BY: BRENDA CERVANTES 1142. EXAMINATION GENERAL EXAMINATION: THE PATIENT IS ALERT, ORIENTED TIMES THREE AND COOPERATIVE. HEART SHOWS REGULAR RHYTHM, NO MURMURS AND NO GALLOPS. LUNGS ARE CLEAR TO AUSCULTATION. ASSESSMENTS SPONDYLOSIS WITHOUT MYELOPATHY OR RADICULOPATHY, LUMBAR REGION - M47.816 (PRIMARY) TREATMENT SPONDYLOSIS WITHOUT MYELOPATHY OR RADICULOPATHY, LUMBAR REGION [facility] FACET BLOCK (PAIN)[id number] OTHERS NOTES: PRE PROCEDURE PHONE CALL COMPLETED 07/04/2020 1520 [address] BILLY NUNO. PROCEDURES PAIN NURSING RECORD PRE-PROCEDURE IV SITE N/A, PRE-PROCEDURE ORAL MEDICATIONS NONE PROCEDURE IN ROOM 1200, PHYSICIAN IN ROOM 1212, START 1216, FINISH 1221, PHYSICIAN OUT OF ROOM 1222, OUT OF ROOM 1233, STEROID N/A, O2 RA, ECG NORMAL SINUS, PATIENT SHIELDED YES, SAFETY STRAP YES, PREP CHLOROPREP MARLENE CERVANTES, IV INFUSED N/A, DRESSING TEGADERM BY DR. LEWIS LOC: LENNY SOSA 07/05/2020 11:50:14 AM > , 1. ALERT, ORIENTED IANLENNY 07/05/2020 12:36:27 PM > , 1. ALERT, ORIENTED RESP: ARIK SOSAITA 07/05/2020 11:50:17 AM > , 1. REGULAR, NO DYSPNEA IANLENNY 07/05/2020 12:36:38 PM > , 1. REGULAR, NO DYSPNEA COLOR: ARIK SOSAITA 07/05/2020 11:50:21 AM > , 1. PINK IANLENNY 07/05/2020 12:36:44 PM > , 1. PINK SKIN: IANLENNY 07/05/2020 11:50:43 AM > , 1. WARM, DRY [place] 07/05/2020 12:36:56 PM > , 1. WARM, DRY POSITION: IANLENNY 07/05/2020 12:00:05 PM > , 1. PRONE, IANLENNY 07/05/2020 12:37:16 PM > , 4. OTHER- SITTING VITALS: IANLENNY 07/05/2020 12:02:26 PM > 175/82,68,16,100% [place] 07/05/2020 12:15:49 PM > 173/77,72,16,99% [place] 07/05/2020 12:25:42 PM > 166/74,63,16,99% [place] 07/05/2020 12:35:14 PM > 167/70,70,18,100% DISCHARGE: POST PAIN 3 RIGHT LOW BACK, DRESSING SITE DRY AND INTACT, IV N/A, GAIT STEADY, TEACHING COMPLETED, PATIENT ACKNOWLEDGES UNDERSTANDING YES PRINTED POST-PROCEDURE AND COVID SYMPTOM MONITORING INSTRUCTIONS GIVEN TO AND REVIEWED WITH PT AND SHE VERBALIZED UNDERSTANDING., PATIENT DISCHARGED AT 1240 PN LUMBAR FACET BLOCK DIAGNOSTIC PRE PROCEDURE DIAGNOSIS LUMBAR SPONDYLOSIS, LUMBOSACRAL SPONDYLOSIS POST PROCEDURE DIAGNOSIS LUMBAR SPONDYLOSIS, LUMBOSACRAL SPONDYLOSIS PROCEDURE RIGHT L3-L4 AND RIGHT L4-L5 FACET BLOCK DIAGNOSTIC NUMBER [address] GALI LEWIS UPHOLSTERY MECHANIC NONE ANESTHESIA LOCAL PRE PROCEDURE NOTE THE PATIENT WITH HISTORY OF CHRONIC LOW BACK PAIN. I EVALUATED THE PATIENT AND REVIEWED THE CHART. I WENT OVER THE RISKS, ALTERNATIVES, AND BENEFITS ASSOCIATED WITH THIS PROCEDURE. THE PATIENT WOULD LIKE TO PROCEED AND GAVE CONSENT TO PERFORM THE PROCEDURE. AGREED WITH THE PATIENT, WE ARE DOING THIS PROCEDURE TO DETERMINE IF THE PATIENT IS A CANDIDATE FOR A RADIOFREQUENCY ABLATION OF THE FACETS JOINTS. THE PATIENT DENIES UNEXPLAINABLE WEIGHT LOSS, FEVER, CHILLS, OR NEW CHANGES IN URINARY OR BOWEL CONTROL. THE PATIENT IS COVID-19 NEGATIVE DESCRIPTION OF PROCEDURE THE PATIENT WAS BROUGHT TO THE PROCEDURE ROOM AND PLACED IN THE PRONE POSITION. THE LUMBOSACRAL AREA WAS CLEANED WITH CHLORAPREP SOLUTION AND DRAPED ASEPTICALLY. THE PROCEDURE WAS DONE UNDER STERILE CONDITIONS. A TIMEOUT WAS PERFORMED WHERE LATERALITY AND THE SITE OF THE PROCEDURE WERE CHECKED AND CONFIRMED WITH EVERYONE IN THE ROOM. UNDER FLUOROSCOPIC GUIDANCE, TARGETS WERE SELECTED AT THE INTERSECTION OF THE RIGHT TRANSVERSE PROCESS OF L4, L5 AND ALA OF S1 WITH ITS RESPECTIVE SUPERIOR ARTICULAR PROCESS. I CONFIRMED AGAIN WITH EVERYONE IN THE ROOM THE LATERALITY OF THE TARGET. LIDOCAINE WAS USED TO NUMB THE SKIN AND THE SUBCUTANEOUS TISSUE BELOW IT. SPINAL NEEDLE, 22-GAUGE, WAS ADVANCED UNDER FLUOROSCOPIC GUIDANCE AND FOLLOWING PATIENT FEEDBACK UNTIL THE TARGETS WERE REACHED. POSITION OF THE NEEDLES WAS VERIFIED WITH AP AND LATERAL VIEWS. AFTER PROPER POSITION OF THE NEEDLES WAS ACHIEVED, ISOVUE-M DYE 30%, 0.1 ML, WAS INJECTED AT EACH SITE SHOWING ADEQUATE SPREAD OF THE DYE. THEN, A SOLUTION OF 0.4 ML OF BUPIVACAINE 0.25% WAS INJECTED AT EACH SITE. THE MEDICATIONS WERE VERIFIED WITH THE NURSE. THERE WAS NO EVIDENCE OF BLOOD, PARESTHESIA OR CEREBROSPINAL FLUID DURING THE PROCEDURE. THE PATIENT WAS SENT TO THE RECOVERY ROOM. THE PATIENT WAS MOVING THE EXTREMITIES AND DOING WELL. THERE WERE NO COMPLICATIONS DURING THE PROCEDURE. ESTIMATED BLOOD LOSS WAS LESS THAN 5 ML. FLUOROSCOPY TIME WAS 24 SECONDS POST PROCEDURE NOTE THE PATIENT WILL DOCUMENT THE PAIN LEVEL AND RESPONSE TO THIS PROCEDURE PER PAIN DIARY. THE PATIENT WILL BE SEEN IN A FOLLOW UP IN THE NEXT FEW WEEKS. FURTHER DETERMINATION FOR THE PATIENT'S CASE WILL BE DONE AT THE NEXT VISIT. INSTRUCTIONS WERE GIVEN, QUESTIONS WERE ANSWERED, AND THE PATIENT EXPRESSED UNDERSTANDING AND AGREED WITH THE PLAN. I, AYLIN SAAVEDRA, DOCUMENTED THE ABOVE INFORMATION ACTING A SCRIBE FOR DR. LEWIS. I HAVE REVIEWED THE ABOVE DOCUMENT, WRITTEN BY AYLIN SAAVEDRA, HYDROMETER CALIBRATOR, AND I VERIFY THAT IT IS ACCURATE PROCEDURE CODES 48440 INJ PARAVERT F JNT L/S 1 LEV, MODIFIERS: [place] [address] INJ PARAVERT F JNT L/S 2 LEV, MODIFIERS: RT DISPOSITION & COMMUNICATION FOLLOW UP FOLLOW UP WITH TRIMMING INSPECTOR (REASON: POST DIAGNOSTIC RIGHT L3-L4, L4-L5) ELECTRONICALLY SIGNED BY GALI LEWIS MD, MD ON 07/11/2020 AT 02:03 PM EST DISCLAIMER : THIS IS A VISIT SUMMARY EXTRACTED FROM THE [employer] CHART. IT IS NOT A COPY OF THE [employer] PROGRESS NOTE. MTDD
== END ==
LOC: M PAIN 10:30
PROVIDERS: ATTEND Anesthesiology
DX: M47.816 Spondylosis without myelopathy or radiculopathy, lumbar region (principal); G47.33 Obstructive sleep apnea (adult) (pediatric); I10 Essential (primary) hypertension; E55.9 Vitamin D deficiency, unspecified; D50.9 Iron deficiency anemia, unspecified; R73.01 Impaired fasting glucose; K21.9 Gastro-esophageal reflux disease without esophagitis; Z86.14 Personal history of Methicillin resistant Staphylococcus aureus infection; Z98.84 Bariatric surgery status; Z96.653 Presence of artificial knee joint, bilateral; Z87.891 Personal history of nicotine dependence; Z88.0 Allergy status to penicillin; Z88.1 Allergy status to other antibiotic agents; Z88.5 Allergy status to narcotic agent; Z88.8 Allergy status to other drugs, medicaments and biological substances; Z91.09 Other allergy status, other than to drugs and biological substances; E66.01 Morbid (severe) obesity due to excess calories; Z68.42 Body mass index [BMI] 45.0-49.9, adult; Z79.01 Long term (current) use of anticoagulants; Z79.899 Other long term (current) drug therapy
CPT/HCPCS: 64493; 64494; Q9967

== ENCOUNTER → 2020-07-14 | Outpatient (CLI) | payer MEDICARE, MEDICAID ==
[~2020-07-14] MED LIST changes: -BUPIVACAINE HCL 0.25% 30ML VIAL As Ordered ONE; -ISOVUE-M 300 61% 15ML VIAL As Ordered ONE; -LIDOCAINE 1% SDV 30ML VIAL As Ordered ONE
--- NOTE | 2020-07-14 09:14 | REPMRS ---
Patient History The patient states she has not had a clinical breast exam in over a year. Family history of colorectal cancer at age 32 in paternal cousin. No Hormone Replacement Therapy 3D TOMOSYNTHESIS WAS PERFORMED. The [place] Burns lifetime risk for breast cancer is 6.2%. Volpara breast density b. Digital Woman Screen Mammo: July 14, 2020 - Exam #: [id number] Bilateral CC and MLO view(s) were taken. Technologist: Marialuisa Tian, Technologist Prior study comparison: July 02, 2019, bilateral digital woman screen mammo performed at [facility]. April 14, 2018, bilateral digital woman screen mammo performed at [facility]. FINDINGS: There are scattered fibroglandular densities. There has been no change in the appearance of the mammogram from the prior studies. There is a mild amount of residual fibroglandular tissue which is fairly symmetric. There is no interval development of dominant mass, architectural distortion, or clustered microcalcification suggestive of malignancy. Assessment: BI-RADS/ACR category 1 mammogram. Negative Mammogram. Recommendation Routine screening mammogram in 1 year (for women over age 40). This mammogram was interpreted with the aid of an FDA-approved computer-aided dectection system. Electronically Signed By: Samson Pinzon MD 07/14/20 0913
--- NOTE | 2020-07-14 13:04 | DEXAMM ---
INDICATION: M85.80/OSTEOPENIA. COMPARISON: 04/14/2018 as well as other prior exams. TECHNIQUE: Bone density was measured using dual-energy x-ray absorptiometry (DEXA). FINDINGS: AP SPINE L1-L4 BMD 1.583 g/cm2 Young Adult T-Score 3.1 Age Matched Z-Score 4.7. LT FEMUR, TOTAL BMD 0.897 g/cm2 Young Adult T-Score -0.9 Age Matched Z-Score 0.3. LT NECK BMD 0.782 g/cm2 Young Adult T-Score -1.8 Age Matched Z-Score -0.4. RT FEMUR, TOTAL BMD 0.877 g/cm2 Young Adult T-Score -1.0 Age Matched Z-Score 0.2. RT NECK BMD 0.811 g/cm2 Young Adult T-Score -1.6 Age Matched Z-Score is -0.2. IMPRESSION: There is normal bone density of the spine. There is low bone density of the left hip. There is low bone density of the right hip. The density of the spine has increased 1.6% since the initial exam on 11/12/2012. The density of the spine increased 2.3% since most recent exam on 04/14/2018. The density of the left hip has decreased 5.9% since initial exam on 11/12/2012. The density of the left hip has increased 8.7% since most recent exam on 04/14/2018. The density of the right hip has decreased 3.8% since the initial exam on 11/12/2012. The density of the right hip has increased 4.5% since the most recent exam on 04/14/2018. FOLLOW-UP: Recommendation for the next bone density exam: If. <Electronically signed by Samson Pinzon > 07/14/20 [id number]
== END ==
LOC: M WHC 07:49
PROVIDERS: ATTEND Family Medicine
DX: Z12.31 Encounter for screening mammogram for malignant neoplasm of breast (principal); M85.851 Other specified disorders of bone density and structure, right thigh; M85.852 Other specified disorders of bone density and structure, left thigh

== ENCOUNTER → 2020-07-19 | Outpatient (CLI) | payer MEDICARE, MEDICAID ==
--- NOTE | 2020-07-26 10:41 | ECWPNPC ---
PATIENT NAME: NISHA MUNSON : 1955 GENDER: FEMALE VISIT DATE: 07/19/2020 DISCHARGE DATE: 07/19/20 1033 VISIT LOCKED DATE TIME: PHYSICIAN: VIOLETA TITUS PHYSICIAN PAGER NO: ACTIVE RESOURCE: VIOLETA TITUS REASON FOR APPOINTMENT 1. POST RIGHT L3-4, L4-5 LUMBAR DIAGNOSTIC FACET BLOCK HISTORY OF PRESENT ILLNESS GENERAL: HERE FOR POST PROCEDURE F/U.HAD #2 L3/4-L4/5 LFBDX ON 07/05/2020- REPORTING GREATER THAN 80% REDUCTION IN PAIN FOR 48 HOURS POSTPROCEDURE THEN PAIN GRADUALLY RETURNED TO BASELINE. REVIEWED MRI OF THE LS SPINE AND DISCUSSED RADIOFREQUENCY PROCEDURE. FALL RISK SCREENING: SCREENING :NO FALLS REPORTED IN THE LAST YEAR PAIN SCREENING: PATIENT HAS A COMPLAINT OF ACUTE OR CHRONIC PAIN :YES LOCATION OF PAIN:RIGHT SHOULDER, LOW BACK, LEG(S), OTHER: RIGHT BUTTOCK, RIGHT SHOULDER, LEFT LOWER LEG INTENSITY OF PAIN (SCALE OF 1 TO 10):6 WHAT DOES YOUR PAIN FEEL LIKE:ACHING, SHARP, TENDER, SORE DURATION:CONSTANT PAIN IS INCREASED BY:ACTIVITIES, PROLONGED STANDING PAIN IS DECREASED BY:USE OF PAIN MEDICATIONS, SITTING NURSING NOTE: -. PAIN CENTER INTAKE QUESTIONS: DO YOU HAVE A HISTORY OF MRSA? :YES LONG TIME AGO, NOW RESOLVED DO YOU TAKE A BLOOD THINNERS? :YES XARELTO DO YOU HAVE ANY BLEEDING DISORDERS? :NO ANY NEW NUMBNESS OR WEAKNESS IN YOUR LEGS OR ARMS? :NO ANY PACEMAKER,DEFIBRILLATOR, OR DORSAL COLUMN STIMULATOR? :YES HAS A LOOP RECORDER DO YOU HAVE ANY RASHES OR OPEN SORES? :YES CHRONIC RASH IN GROIN ARE YOU ALLERGIC TO IV DYE? :NO ARE YOU DIABETIC? :NO ANY NEW PROBLEMS WITH YOUR MEDICATIONS? :NO HAVE YOU RECEIVED A VACCINE IN THE PAST 30 DAYS? :NO DO YOU PLAN TO RECEIVE A VACCINE IN THE NEXT 21 DAYS? :YES IF SO WHAT VACCINE AND WHEN? INFLUENZA DO YOU NEED ANY PRESCRIPTION? :NO DO YOU TAKE ANY IMMUNOSUPPRESSIVE MEDICATIONS? :NO IS THERE A CHANCE YOU COULD BE ? :NO ARE YOU BREAST FEEDING? :NO CURRENT MEDICATIONS TAKING VITAMIN B12 1000 MCG SC . SC EVERY 8 WEEKS TAKING PROAIR HFA 108 (90 BASE) MCG/ACT AEROSOL SOLUTION 2 PUFFS NEEDED INHALATION QID PRN TAKING FERROUS GLUCONATE 325 MG CAPSULE 1 TABLET ORALLY TWICE DAILY TAKING VITAMIN D 5000 TABLET 1 TABLET ORALLY TID TAKING CALCIUM 600+D HIGH POTENCY 600-400 MG-UNIT TABLET 1 TABLET WITH FOOD ORALLY TWICE A DAY TAKING RECLAST 5 MG/100ML SOLUTION DIRECTED INTRAVENOUS YEARLY TAKING SUCRALFATE 1 GM TABLET 1 TABLET ON AN EMPTY STOMACH ORALLY AC TID TAKING XARELTO 20 MG TABLET 1 TAB(S) ORAL AT DINNER TIME TAKING NYSTATIN 813555 UNITS/G TOPICAL OINTMENT . APPLIED TOPICALLY DIRECTED BID X 10 DAYS C FLARES TAKING CLARITIN 10 MG TABLET 1 TABLET ORALLY ONCE A DAY TAKING COMPRESSION STOCKINGS 30-40 MMHG KNEE HIGH I87.2 DAILY TAKING TYLENOL 8 HOUR 650 MG TABLET EXTENDED RELEASE 2 TABLETS NEEDED ORALLY EVERY MORNING TAKING OXYCODONE-ACETAMINOPHEN 10-325 MG TABLET 1 TABLET NEEDED ORALLY EVERY 8 HRS TAKING PANTOPRAZOLE SODIUM 40 MG TABLET DELAYED RELEASE 1 TABLET ORALLY BID NOT-TAKING METOPROLOL SUCCINATE 25 MG CAPSULE ER 24 HOUR SPRINKLE 1 CAPSULE ORALLY ONCE A DAY FOR SBP>140 NOT-TAKING DICLOFENAC SODIUM 1 % GEL 4 GM TRANSDERMAL FOUR TIMES A DAY TO B KNEES NOT-TAKING OXYCODONE HCL 10 MG TABLET 1 TABLET NEEDED ORALLY 3 TIMES A DAY MEDICATION LIST REVIEWED AND RECONCILED WITH THE PATIENT PAST MEDICAL HISTORY 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 12/2008-SETTER HYPERTENSION, ESSENTIAL ALLERGIC RHINITIS H/O IMMUNOTHERAPY X >10Y-STOPPED 2 INADEQUATE RESPONSE NONALCOHOLIC FATTY LIVER DISEASE C MILD CHRONIC ELEVATED ALP OBESITY, MORBID STATUS POST R-Y GASTRIC BYPASS 06/2006, 12/29/15-MARYJANE VITAMIN D DEFICIENCY ANEMIA, IRON/FE DEFICIENCY HISTORY OF RIGHT LOWER EXTREMITY DVT X2 IMPAIRED FASTING GLUCOSE HISTORY OF NICOTINE ADDICTION-SMOKED 7 CIGS QD X 10Y, QUIT AT 28 YO-04/2012 FEV1 2.3L (99%)/RATIO 108% GERD-11/2014 NORMAL EGD-REINDL TUBULAR ADENOMA BY 11/2014 COLONOSCOPY-REINDL ATRIAL FIBRILLATION, [id number] POD 2 TKR 05/2015-SP PULMONARY VEIN ISOLATION, ILR [id number]-09/9/19 LISA, MODERATE-07/2017 HST JLUIS 17 C SAO2 TO 88% HO MRSA ABSCESS- HAS BEEN TREATED AND TESTED NEGATIVE LUMBAR DJD-11/2017 MRI L5/S1 BULGE EXTENDING INTO B NF DISPLACING R S1 ROOT, MILD L4/5 CCS R T5 ZOSTER RXED C VALCYC/PRED 05/2018 IMPINGEMENT AND SPURRING LEFT SHOULDER ALLERGIES PENICILLIN (FOR ALLERGIES USE ONLY): RASH - ALLERGY ERYTHROMYCIN: RASH - ALLERGY DOXYCYCLINE HYCLATE: RASH - ALLERGY TALWIN: RASH HIVES - ALLERGY NOVACAINE (PT NOTES SHE WAS OK WITH RECENT LIDOCAI: SWELLING - ALLERGY BACTRIM: RASH - ALLERGY TETRACYCLINE HCL: HIVES - ALLERGY VICODIN: ITCH - ALLERGY SINGULAIR: GERD - SIDE EFFECTS CODEINE SULFATE: UNCONSCIOUSNESS - ALLERGY GABAPENTIN: IRRITABILITY/AGGRESSIVENESS - SIDE EFFECTS LYRICA: SHAKING /FORGETFULNESS AMITRIPTYLINE HCL: MEMORARY ISSUES - SIDE EFFECTS ADHESIVE: RED,IRRITATION IF ON LONG TIME - SIDE EFFECTS SURGICAL HISTORY I&D ABDOMEN ABSCESS 05/2010 OPEN GASTRIC BYPASS 2007 PARTIAL HYSTERECTOMY 2008 RIGHT SHOULDER SURGERY (X2) 2007 AND 2009 APPENDECTOMY AGE 9 RIGHT WRIST SURGERY X 2 1980S THROAT TUMOR AGE 16 SURGERY FOR DEVIATED SEPTUM AGE 18 AD [id number] 02/2014 R TKR- DR. HUYNH-[place]AC[place] 06/20/15 GASTRIC BYPASS REVISION-MARYJANE 12/29/15 L TKR-DR. HUYNH-SOS 01/01/17 ROBOTIC VENTRAL HERNIA REPAIR 2 SURGICAL VENTRAL HERNIA-MARYJANE 05/16/17 HAS IVC FILTER CARDIAC ABLATION AND MPLANTED CARDIAC MONTIOR 06/03/19 FAMILY HISTORY FATHER: 66 YRS, KIDNEY FAILURE MOTHER: 78 YRS, HTN, PACEMAKER, DIAGNOSED WITH HYPERTENSION SIBLINGS: ALIVE, DIABETES, HYPERTENSION MATERNAL GRAND FATHER: , BRAIN CANCER MATERNAL GRAND MOTHER: , COLON CARCINOMA 2 BROTHER(S) , 1 SISTER(S) . 1 SON(S) , 2 DAUGHTER(S) . MGF AND COUSIN HAD COLON CA.\\\\NDAUGHTERS-CHRONIC BACK PAIN\\\\NSON-HAD THYROIDECTOMY--UNSURE OF DIAGNOSIS. SOCIAL HISTORY GENERAL: TOBACCO USE ARE YOU A:FORMER SMOKER HOW LONG HAS IT BEEN SINCE YOU LAST SMOKED?> 10 YEARS LATEX QUESTIONNAIRE LATEX ALLERGY : HAVE YOU EVER DEVELOPED ANY TYPE OF REACTION AFTER HANDLING LATEX PRODUCTS SUCH RUBBER GLOVES, CONDOMS, DIAPHRAGMS, BALLOONS, SOCKS, OR UNDERWEAR?NO ADHESIVE SENSITIVITY LATEX ALLERGY : HAVE YOU EVER DEVELOPED ANY TYPE OF REACTION DURING OR AFTER DENTAL APPOINTMENT, VAGINAL/RECTAL EXAMINATION, SURGICAL PROCEDURE, OR ANY OTHER EXPOSURE?NO DATE ASKED : 07/04/2020 LATEX RISK : HAVE YOU EVER HAD ANY DIFFICULTY BREATHING OR HIVES AFTER EATING OR HANDLING ANY FRUITS, OR VEGETABLES; SUCH KIWI, BANANAS, STONE FRUITS, OR CHESTNUTSNO LATEX RISK : DO YOU HAVE A PREVIOUS PERSONAL HISTORY OF MORE THAN NINE SURGERIES, SPINA BIFIDA, OR REPEATED CATHERIZATIONS? YES - PLEASE INDICATE : > 9 SURGERIES LATEX RISK : ARE YOU FREQUENTLY EXPOSED TO LATEX PRODUCTS IN YOUR OCCUPATION?NO BMI CARE GOAL FOLLOW-UP ABOVE NORMAL BMI FOLLOW-UPLIFESTYLE EDUCATION REGARDING DIET ALCOHOL SCREENING DID YOU HAVE A DRINK CONTAINING ALCOHOL IN THE PAST YEAR?NO POINTS0 INTERPRETATIONNEGATIVE RECREATIONAL DRUG USE DRUG USE?NO CAFFEINE CAFFEINE USE?NO SEXUAL HX HAD SEX IN THE LAST 12 MONTHS (VAGINAL, ORAL, OR ANAL)?NO LMP:HYSTER HAVE YOU EVER HAD AN STD?NO HIV / HEP-C SCREENING HIV TEST OFFERED TO PATIENT:YES DATE OFFERED:11/05/2017 TEST ACCEPTED:NO HEP-C TEST OFFERED TO PATIENT:YES DATE OFFERED:11/22/2016 REASON:PATIENT DECLINED TEST ACCEPTED:NO REASON:PATIENT DECLINED BROCHURE PROVIDED TO PATIENTYES PROTESTANT [id number] TAOISM LANGUAGE LANGUAGES SPOKEN:CHADIAN EDUCATION LEVEL OF EDUCATION:NOT FINISHED COLLEGE LEARNING BARRIERS / SPECIAL NEEDS CHANGE FROM LAST VISIT?NO BARRIERS TO LEARNING?NO HEARING IMPAIRED?NO VISION IMPAIRED?YES COGNITIVELY IMPAIRED?NO :CORRECTIVE LENSES READINESS TO LEARN?YES LEARNING PREFERENCES?NO LEARNING CAPABILITIES PRESENT?YES EMOTIONAL BARRIERS?NO SPECIAL DEVICES?YES :CANE, WALKER, OTHER WALKING CANE VETERINARY SCIENCE TEACHER 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 DIET: REGULAR. EXERCISE: NO REGULAR EXERCISE, SMALL WALKS. MARITAL STATUS: . PAIN CLINIC PFS, CLERGY, PUBLIC HEALTH REFERRALS PFS REFERRAL NEEDED?NO CLERGY REFERRAL NEEDED?NO PUBLIC HEALTH REFERRAL NEEDED?NO HAS THE PATIENT BEEN EDUCATED REGARDING HIS/HER PLAN OF CARE?YES HAS THE PATIENT BEEN EDUCATED REGARDING PAIN, THE RISK FOR PAIN, THE IMPORTANCE OF EFFECTIVE PAIN MANAGEMENT, AND THE PAIN ASSESSMENT PROCESS?YES ADVANCE DIRECTIVE ADVANCE DIRECTIVE DISCUSSED WITH PATIENT:YES PT. HAS HCP, DAUGHTER DARIO MCKEON-JOSH [phone], DAUGHTER DEANDAR BECKHAM [phone] HOSPITALIZATION/MAJOR DIAGNOSTIC PROCEDURE I&D MRSA ABDOMEN ABSCESS 05/2010 ACUTE DYSPNEA/HYPOXIA ([facility] PRIOR NORMAL MEAL)-ELISA AWOKE 530 2 WANDA, THEN IMMEDIATELY CAUSED COUGH/DYSPNEA-FELT ASPIRATION PN, IN ED RECEIVED ALBUTEROL NEB X 3 THEN WENT INTO AFIB C RVR, CONVERTED IN ED C IV AMIODARONE 150 X 2, -BLE DVT US,- CXR X 2 (09/09, 09/09-09/11/14 A. FIB WITH SURGERIES SURGERIES REVIEW OF SYSTEMS CONSTITUTIONAL: ANY RECENT FEVER NO . CHILLS NO . WEIGHT CHANGE OF UNKNOWN REASONS NO . GASTROENTEROLOGY: NEW UNEXPLAINABLE CHANGES IN BOWEL CONTROL NO . CONSTIPATION NO . GENITOURINARY: ANY NEW CHANGE IN BLADDER CONTROL? NO . NEUROLOGY: NEW ONSET DIZZINESS OR NEUROLOGICAL CHANGES NOT MENTIONED NO . NEW NUMBNESS OR PAIN PATTERNS NOT MENTIONED AND PERTINENT TO TODAY'S VISIT NO . CARDIOLOGY: NEW CHEST PRESSURE NO . NEW CHEST PAIN NO . RESPIRATORY: UNEXPLAINABLE COUGH NO . NEW SHORTNESS OF BREATH NO . VITAL SIGNS WT 275.6 LBS, HT 63 IN, BMI 48.82 INDEX, BP 187/79 MM HG, HR 86 /MIN, RR 18 /MIN, TEMP 96.1 F, OXYGEN SAT % 98%, SAFE IN ENV? (Y/N) YES, NA INITIALS AW [id number]. Lucio TAO RN 07/19/20 0958. EXAMINATION GENERAL EXAMINATION: GENERAL AWAKE,ALERT ,PLEASANT . PSYCH AFFECT NORMAL . LUNGS: LUNG DAVID ARE CLEAR TO AUSCULTATION BILATERALLY. GOOD MOVEMENT OF AIR . HEART: S1, S2 IN A REGULAR RATE AND RHYTHM. NO SIGNIFICANT MURMURS, RUBS OR GALLOPS NOTED . LUMBAR: SPECIFIC POINT TENDERNESS OVER RIGHT L3-4, L4-5 LUMBAR FACETS WITH FACET LOADING. NEUROLOGIC EXAM: NORMAL SENSATION LIGHT TOUCH BILAT. LOWER EXTREMITIES . DIAGNOSTIC TESTS REVIEWEDMRI L/S SPINE 2018 . ASSESSMENTS OTHER CHRONIC PAIN - G89.29 (PRIMARY) SPONDYLOSIS WITHOUT MYELOPATHY OR RADICULOPATHY, LUMBAR REGION - M47.816 TREATMENT OTHER CHRONIC PAIN PAIN PROCEDURE LOGDATE OF [id number]/10/20PROCEDURE:RIGHT LUMBAR FACET BLOCKDIAGNOSTIC #2 L3/4, L4/5RESULT:MARKED REDUCTION IN PAIN FOR 6 HOURS POST PROCEDURE NOTES: RIGHT L3/4, L4-5 COOL RF/MED HOLD SEND STOP XARELTO FOR 3 DAYS PREPROCEDURE AND RESUME 3 DAYS POSTPROCEDURE TO PRE-PROCEDURE INSTRUCTIONS REVIEWED WITH PT. VERBALIZED UNDERSTANDING. Lucio TAO RN 07/19/20 1035. PROCEDURE CODES [id number] ESTABILISHED PATIENT [facility]LY [facility] CHARGE DISPOSITION & COMMUNICATION FOLLOW UP POST (REASON: LEFT L4-5, L5-S1 LUMBAR FACET BLOCK DIAGNOSTIC #1) ELECTRONICALLY SIGNED BY YVETTE HINOJOSA ON 07/25/2020 AT 01:07 PM EST DISCLAIMER : THIS IS A VISIT SUMMARY EXTRACTED FROM THE [facility] CHART. IT IS NOT A COPY OF THE [facility] PROGRESS NOTE. VINCENT
== END ==
LOC: M PAIN 09:30
PROVIDERS: ATTEND Nurse Practitioner Family
DX: M47.816 Spondylosis without myelopathy or radiculopathy, lumbar region (principal); G89.29 Other chronic pain; E55.9 Vitamin D deficiency, unspecified; D50.9 Iron deficiency anemia, unspecified; R73.01 Impaired fasting glucose; K21.9 Gastro-esophageal reflux disease without esophagitis; G47.33 Obstructive sleep apnea (adult) (pediatric); Z86.14 Personal history of Methicillin resistant Staphylococcus aureus infection; Z98.84 Bariatric surgery status; Z96.653 Presence of artificial knee joint, bilateral; Z87.891 Personal history of nicotine dependence; Z88.0 Allergy status to penicillin; Z88.1 Allergy status to other antibiotic agents; Z88.5 Allergy status to narcotic agent; Z88.8 Allergy status to other drugs, medicaments and biological substances; Z91.09 Other allergy status, other than to drugs and biological substances; E66.01 Morbid (severe) obesity due to excess calories; Z68.42 Body mass index [BMI] 45.0-49.9, adult; Z79.01 Long term (current) use of anticoagulants; Z79.899 Other long term (current) drug therapy

== ENCOUNTER → 2020-07-29 | Outpatient (CLI) | payer MEDICARE, MEDICAID | LOC: M LABSMTC 10:16 | PROVIDERS: ATTEND Anesthesiology | DX: Z20.828 Contact with and (suspected) exposure to other viral communicable diseases (principal) ==

== ENCOUNTER → 2020-08-03 | Outpatient (CLI) | payer MEDICARE, MEDICAID ==
[~2020-08-03] MED LIST changes: +BUPIVACAINE HCL 0.25% 30ML VIAL As Ordered ONE; +LIDOCAINE 1% SDV 30ML VIAL As Ordered ONE; +dexameTHASONE 10MG/1ML VIAL PRES.FREE (J1100 PER 1MG) As Ordered ONE; +diazePAM 2 MG TAB As Ordered ONE; +diphenhydrAMINE 25MG CAP As Ordered ONE; +oxyCODONE 5MG TAB As Ordered ONE
--- NOTE | 2020-08-03 17:14 | REP ---
INDICATION: COOL RADIO FREQUENCY L3/L4 L4/L5. COMPARISON: None. TECHNIQUE: Five views lower lumbar spine performed. FINDINGS: [place] are seen along the lower lumbar spine. IMPRESSION: 41 seconds fluoroscopy time utilized. <Electronically signed by Samson Pinzon > 08/03/20 1807
--- NOTE | 2020-08-06 00:22 | ECWPNPC ---
PATIENT NAME: NISHA MUNSON : 1955 GENDER: FEMALE VISIT DATE: 08/03/2020 DISCHARGE DATE: 08/03/201713 VISIT LOCKED DATE TIME: PHYSICIAN: GALI LEWIS MD PHYSICIAN PAGER NO: ACTIVE RESOURCE: GALI LEWIS MD REASON FOR APPOINTMENT 1. RIGHT COOL RADIOFREQUENCY LUMBAR L3-L4, L4-L5 HISTORY OF PRESENT ILLNESS GENERAL: -. FALL RISK SCREENING: SCREENING :NO FALLS REPORTED IN THE LAST YEAR PAIN SCREENING: PATIENT HAS A COMPLAINT OF ACUTE OR CHRONIC PAIN :YES LOCATION OF PAIN:BACK INTENSITY OF PAIN (SCALE OF 1 TO 10):7 WHAT DOES YOUR PAIN FEEL LIKE:ACHING, CONTINOUS, TENDER, SORE PAIN IS INCREASED BY:ACTIVITIES PAIN IS DECREASED BY:USE OF PAIN MEDICATIONS, SITTING NURSING NOTE: -. PAIN CENTER INTAKE QUESTIONS: DO YOU HAVE A HISTORY OF MRSA? :YES DO YOU TAKE A BLOOD THINNERS? :YES XARELTO (07/29/20) DO YOU HAVE ANY BLEEDING DISORDERS? :NO ANY NEW NUMBNESS OR WEAKNESS IN YOUR LEGS OR ARMS? :NO ANY PACEMAKER,DEFIBRILLATOR, OR DORSAL COLUMN STIMULATOR? :YES LOOP RECOREEDER FROM ABLAISION DO YOU HAVE ANY RASHES OR OPEN SORES? :YES RASH IS CHRONIC IN GROIN AREA ARE YOU ALLERGIC TO IV DYE? :NO ARE YOU DIABETIC? :NO ANY NEW PROBLEMS WITH YOUR MEDICATIONS? :NO HAVE YOU RECEIVED A VACCINE IN THE PAST 30 DAYS? :NO DO YOU PLAN TO RECEIVE A VACCINE IN THE NEXT 21 DAYS? :NO DO YOU TAKE ANY IMMUNOSUPPRESSIVE MEDICATIONS? :NO ANY HISTORY OF SEIZURES? :NO ANY HISTORY OF CARDIAC ISSUES OR EVENTS? :YES ABLAISION DO YOU HAVE SLEEP APNEA? :YES DO YOU WEAR A CPAP?YES ANY RECENT HEAD INJURY? :NO DO YOU HAVE ANY NEW INFECTIONS? :NO IS THERE A CHANCE YOU COULD BE ? :NO ARE YOU BREAST FEEDING? :NO WHEN DID YOU LAST EAT? : 08/03/20 0800 WHEN DID YOU LAST DRINK? : 08/03/20 1200 WHAT DID YOU LAST DRINK? : WATER NAME OF PERSON DRIVING YOU HOME? : -PINEDA DAUGHTER DO YOU HAVE ANY OTHER QUESTIONS OR CONCERNS? : NO CURRENT MEDICATIONS TAKING VITAMIN B12 1000 MCG SC . SC EVERY 8 WEEKS, NOTES: MAY LAST INJECTION TAKING PROAIR HFA 108 (90 BASE) MCG/ACT AEROSOL SOLUTION 2 PUFFS NEEDED INHALATION QID PRN, NOTES: NOT RECENTLY TAKING FERROUS GLUCONATE 325 MG CAPSULE 1 TABLET ORALLY TWICE DAILY, NOTES: 08/02/202099 TAKING VITAMIN D 5000 TABLET 1 TABLET ORALLY TID, NOTES: 08/03/20799 TAKING CALCIUM 600+D HIGH POTENCY 600-400 MG-UNIT TABLET 1 TABLET WITH FOOD ORALLY TWICE A DAY, NOTES: 08/02 2100 TAKING RECLAST 5 MG/100ML SOLUTION DIRECTED INTRAVENOUS YEARLY, NOTES: 2 MONTHS AGO TAKING SUCRALFATE 1 GM TABLET 1 TABLET ON AN EMPTY STOMACH ORALLY AC TID, NOTES: 08/03 800 TAKING XARELTO 20 MG TABLET 1 TAB(S) ORAL AT DINNER TIME, NOTES: 07/29/2020 TAKING NYSTATIN 796471 UNITS/G TOPICAL OINTMENT . APPLIED TOPICALLY DIRECTED BID X 10 DAYS C FLARES, NOTES: 08/03 1300 TAKING CLARITIN 10 MG TABLET 1 TABLET ORALLY ONCE A DAY, NOTES: 08/02 800 TAKING COMPRESSION STOCKINGS 30-40 MMHG KNEE HIGH I87.2 DAILY, NOTES: 08/02 TAKING TYLENOL 8 HOUR 650 MG TABLET EXTENDED RELEASE 2 TABLETS NEEDED ORALLY EVERY MORNING, NOTES: 08/03 800 TAKING OXYCODONE-ACETAMINOPHEN 7.5-325 MG TABLET 1 TABLET NEEDED ORALLY EVERY 8 HRS, NOTES: 08/02 1400 TAKING PANTOPRAZOLE SODIUM 40 MG TABLET DELAYED RELEASE 1 TABLET ORALLY BID, NOTES: 08/03 800 NOT-TAKING METOPROLOL SUCCINATE 25 MG CAPSULE ER 24 HOUR SPRINKLE 1 CAPSULE ORALLY ONCE A DAY FOR SBP>140 NOT-TAKING DICLOFENAC SODIUM 1 % GEL 4 GM TRANSDERMAL FOUR TIMES A DAY TO B KNEES NOT-TAKING OXYCODONE HCL 10 MG TABLET 1 TABLET NEEDED ORALLY 3 TIMES A DAY MEDICATION LIST REVIEWED AND RECONCILED WITH THE PATIENT PAST MEDICAL HISTORY 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 12/2008-SETTER HYPERTENSION, ESSENTIAL ALLERGIC RHINITIS H/O IMMUNOTHERAPY X >10Y-STOPPED 2 INADEQUATE RESPONSE NONALCOHOLIC FATTY LIVER DISEASE C MILD CHRONIC ELEVATED ALP OBESITY, MORBID STATUS POST R-Y GASTRIC BYPASS 06/2006, 12/29/15-MARYJANE VITAMIN D DEFICIENCY ANEMIA, IRON/FE DEFICIENCY HISTORY OF RIGHT LOWER EXTREMITY DVT X2 IMPAIRED FASTING GLUCOSE HISTORY OF NICOTINE ADDICTION-SMOKED 7 CIGS QD X 10Y, QUIT AT 28 YO-04/2012 FEV1 2.3L (99%)/RATIO 108% GERD-11/2014 NORMAL EGD-REINDL TUBULAR ADENOMA BY 11/2014 COLONOSCOPY-REINDL ATRIAL FIBRILLATION, [id number] POD 2 TKR 05/2015-SP PULMONARY VEIN ISOLATION, ILR EVLDOPR-AGXUL-96/9/19 LISA, MODERATE-07/2017 HST JLUIS 17 C SAO2 TO 88% HO MRSA ABSCESS- HAS BEEN TREATED AND TESTED NEGATIVE LUMBAR DJD-11/2017 MRI L5/S1 BULGE EXTENDING INTO B NF DISPLACING R S1 ROOT, MILD L4/5 CCS R T5 ZOSTER RXED C VALCYC/PRED 05/2018 IMPINGEMENT AND SPURRING LEFT SHOULDER ALLERGIES PENICILLIN (FOR ALLERGIES USE ONLY): RASH - ALLERGY ERYTHROMYCIN: RASH - ALLERGY DOXYCYCLINE HYCLATE: RASH - ALLERGY TALWIN: RASH HIVES - ALLERGY NOVACAINE (PT NOTES SHE WAS OK WITH RECENT LIDOCAI: SWELLING - ALLERGY BACTRIM: RASH - ALLERGY TETRACYCLINE HCL: HIVES - ALLERGY VICODIN: ITCH - ALLERGY SINGULAIR: GERD - SIDE EFFECTS CODEINE SULFATE: UNCONSCIOUSNESS - ALLERGY GABAPENTIN: IRRITABILITY/AGGRESSIVENESS - SIDE EFFECTS LYRICA: SHAKING /FORGETFULNESS AMITRIPTYLINE HCL: MEMORARY ISSUES - SIDE EFFECTS ADHESIVE: RED,IRRITATION IF ON LONG TIME - SIDE EFFECTS SURGICAL HISTORY I&D ABDOMEN ABSCESS 05/2010 OPEN GASTRIC BYPASS 2007 PARTIAL HYSTERECTOMY 2008 RIGHT SHOULDER SURGERY (X2) 2008 AND 2009 APPENDECTOMY AGE 9 RIGHT WRIST SURGERY X 2 1980S THROAT TUMOR AGE 16 SURGERY FOR DEVIATED SEPTUM AGE 18 AD [id number] 02/2014 R TKR- DR. HUYNH-[place] 06/20/15 GASTRIC BYPASS REVISION-MARYJANE 12/29/15 L TKR-DR. HUYNH-SOS 01/01/17 ROBOTIC VENTRAL HERNIA REPAIR 2 SURGICAL VENTRAL HERNIA-MARYJANE 05/16/17 HAS IVC FILTER CARDIAC ABLATION AND MPLANTED CARDIAC MONTIOR 06/03/19 FAMILY HISTORY FATHER: 66 YRS, KIDNEY FAILURE MOTHER: 78 YRS, HTN, PACEMAKER, DIAGNOSED WITH HYPERTENSION SIBLINGS: ALIVE, HYPERTENSION, DIABETES MATERNAL GRAND FATHER: , BRAIN CANCER MATERNAL GRAND MOTHER: , COLON CARCINOMA 2 BROTHER(S) , 1 SISTER(S) . 1 SON(S) , 2 DAUGHTER(S) . MGF AND COUSIN HAD COLON CA.\\\\NDAUGHTERS-CHRONIC BACK PAIN\\\\NSON-HAD THYROIDECTOMY--UNSURE OF DIAGNOSIS. SOCIAL HISTORY GENERAL: TOBACCO USE ARE YOU A:FORMER SMOKER HOW LONG HAS IT BEEN SINCE YOU LAST SMOKED?> 10 YEARS LATEX QUESTIONNAIRE LATEX ALLERGY : HAVE YOU EVER DEVELOPED ANY TYPE OF REACTION AFTER HANDLING LATEX PRODUCTS SUCH RUBBER GLOVES, CONDOMS, DIAPHRAGMS, BALLOONS, SOCKS, OR UNDERWEAR?NO ADHESIVE SENSITIVITY LATEX ALLERGY : HAVE YOU EVER DEVELOPED ANY TYPE OF REACTION DURING OR AFTER DENTAL APPOINTMENT, VAGINAL/RECTAL EXAMINATION, SURGICAL PROCEDURE, OR ANY OTHER EXPOSURE?NO LATEX RISK : HAVE YOU EVER HAD ANY DIFFICULTY BREATHING OR HIVES AFTER EATING OR HANDLING ANY FRUITS, OR VEGETABLES; SUCH KIWI, BANANAS, STONE FRUITS, OR CHESTNUTSNO LATEX RISK : DO YOU HAVE A PREVIOUS PERSONAL HISTORY OF MORE THAN NINE SURGERIES, SPINA BIFIDA, OR REPEATED CATHERIZATIONS? YES - PLEASE INDICATE : > 9 SURGERIES LATEX RISK : ARE YOU FREQUENTLY EXPOSED TO LATEX PRODUCTS IN YOUR OCCUPATION?NO DATE ASKED : 08/03/2020 BMI CARE GOAL FOLLOW-UP ABOVE NORMAL BMI FOLLOW-UPLIFESTYLE EDUCATION REGARDING DIET ALCOHOL SCREENING DID YOU HAVE A DRINK CONTAINING ALCOHOL IN THE PAST YEAR?NO POINTS0 INTERPRETATIONNEGATIVE RECREATIONAL DRUG USE DRUG USE?NO CAFFEINE CAFFEINE USE?NO SEXUAL HX HAD SEX IN THE LAST 12 MONTHS (VAGINAL, ORAL, OR ANAL)?NO LMP:HYSTER HAVE YOU EVER HAD AN STD?NO HIV / HEP-C SCREENING HIV TEST OFFERED TO PATIENT:YES DATE OFFERED:11/05/2017 TEST ACCEPTED:NO HEP-C TEST OFFERED TO PATIENT:YES DATE OFFERED:11/22/2016 REASON:PATIENT DECLINED TEST ACCEPTED:NO REASON:PATIENT DECLINED BROCHURE PROVIDED TO PATIENTYES MORMON [id number] ANGLICAN LANGUAGE LANGUAGES SPOKEN:ALBANIAN EDUCATION LEVEL OF EDUCATION:NOT FINISHED COLLEGE LEARNING BARRIERS / SPECIAL NEEDS CHANGE FROM LAST VISIT?NO BARRIERS TO LEARNING?NO HEARING IMPAIRED?NO VISION IMPAIRED?YES COGNITIVELY IMPAIRED?NO :CORRECTIVE LENSES READINESS TO LEARN?YES LEARNING PREFERENCES?NO LEARNING CAPABILITIES PRESENT?YES EMOTIONAL BARRIERS?NO SPECIAL DEVICES?YES :CANE, WALKER, OTHER WALKING CANE GUIDE ALPINE 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 DIET: REGULAR. EXERCISE: NO REGULAR EXERCISE, SMALL WALKS. MARITAL STATUS: . PAIN CLINIC PFS, CLERGY, PUBLIC HEALTH REFERRALS PFS REFERRAL NEEDED?NO CLERGY REFERRAL NEEDED?NO PUBLIC HEALTH REFERRAL NEEDED?NO HAS THE PATIENT BEEN EDUCATED REGARDING HIS/HER PLAN OF CARE?YES HAS THE PATIENT BEEN EDUCATED REGARDING PAIN, THE RISK FOR PAIN, THE IMPORTANCE OF EFFECTIVE PAIN MANAGEMENT, AND THE PAIN ASSESSMENT PROCESS?YES ADVANCE DIRECTIVE ADVANCE DIRECTIVE DISCUSSED WITH PATIENT:YES PT. HAS HCP, DAUGHTER DARIO PICKETT [phone], DAUGHTER DEANDRA BECKHAM [phone] HOSPITALIZATION/MAJOR DIAGNOSTIC PROCEDURE I&D MRSA ABDOMEN ABSCESS 05/2010 ACUTE DYSPNEA/HYPOXIA ([facility] PRIOR NORMAL MEAL)-ELISA AWOKE 530 2 WANDA, THEN IMMEDIATELY CAUSED COUGH/DYSPNEA-FELT ASPIRATION PN, IN ED RECEIVED ALBUTEROL NEB X 3 THEN WENT INTO AFIB C RVR, CONVERTED IN ED C IV AMIODARONE 150 X 2, -BLE DVT US,- CXR X 2 (09/09, 09/09-09/11/14 A. FIB WITH SURGERIES SURGERIES VITAL SIGNS WT 277.6 LBS, HT 63 IN, BMI 49.17 INDEX, BP 140/60 MM HG, HR 95 /MIN, RR 18 /MIN, TEMP 98.1 F, OXYGEN SAT % 94%, SAFE IN ENV? (Y/N) YES, NA INITIALS AW 1406, REVIEWED BY: DESTINY COOL THIRD RAIL INSTALLER. EXAMINATION GENERAL EXAMINATION: THE PATIENT IS ALERT, ORIENTED TIMES THREE AND COOPERATIVE. HEART SHOWS REGULAR RHYTHM, NO MURMURS AND NO GALLOPS. LUNGS ARE CLEAR TO AUSCULTATION. ASSESSMENTS SPONDYLOSIS WITHOUT MYELOPATHY OR RADICULOPATHY, LUMBAR REGION - M47.816 (PRIMARY) SPONDYLOSIS WITHOUT MYELOPATHY OR RADICULOPATHY, LUMBOSACRAL REGION - M47.817 TREATMENT SPONDYLOSIS WITHOUT MYELOPATHY OR RADICULOPATHY, LUMBAR REGION [facility] FLUORO GUIDANCE (PAIN)[id number] MEDICATION: BENADRYL TAB 25MG ORALLY (DIPHENHYDRAMINE)KAILEY RICO 08/03/2020 3:12:43 PM > BENADRYL LOT # [id number] EXP DATE 12/2022 MCKENZIE CHRISTIANSON 08/03/2020 3:17:13 PM > VERIFIED KAILEY RICO 08/03/2020 3:19:28 PM > ADMINISTERED MEDICATION: VALIUM TAB 2MG ORALLY (DIAZEPAM)KAILEY RICO 08/03/2020 3:13:36 PM > VALIUM LOT# [id number]. EXP DATE 08/2020. MCKENZIE CHRISTIANSON 08/03/2020 3:17:30 PM > VERIFIED KAILEY RICO 08/03/2020 3:19:46 PM > ADMINISTERED MEDICATION: OXYCODONE HCL TAB 10MG ORALLYFUDAINA,KAILEY 08/03/2020 3:14:29 PM > OXYCODONE LOT# [id number]. EXP DATE 09/2021 MCKENZIE CHRISTIANSON 08/03/2020 3:17:55 PM > VERIFIED KAILEY RICO 08/03/2020 3:20:05 PM > ADMINISTERED NOTES: DISCHARGE INSTRUCTIONS REVIEWED AND PATIENT VERBALIZED UNDERSTANDING. . SPONDYLOSIS WITHOUT MYELOPATHY OR RADICULOPATHY, LUMBOSACRAL REGION [facility] FLUORO GUIDANCE (PAIN)[id number] PROCEDURES PAIN NURSING RECORD PROCEDURE IN ROOM 1540, PHYSICIAN IN ROOM 1610, START 1620, FINISH 1639, PHYSICIAN OUT OF ROOM 1647, OUT OF ROOM 1650, STEROID DEXAMETHASONE, O2 RA, ECG NORMAL SINUS, PATIENT SHIELDED YES, SAFETY STRAP YES, PREP CHLOROPREP BY Vicente CHRISTIANSON RN, IV INFUSED N/A, DRESSING TEGADERM BY DR LEWIS LOC: TRISHAKAILEY 08/03/2020 3:25:43 PM > , 1. ALERT, ORIENTED RESP: TRISHAKAILEY 08/03/2020 3:25:50 PM > , 1. REGULAR, NO DYSPNEA COLOR: KAILEY RICO 08/03/2020 3:25:56 PM > , 1. PINK SKIN: TRISHAKAILEY 08/03/2020 3:26:02 PM > , 1. WARM, DRY POSITION: TRISHAKAILEY 08/03/2020 3:26:08 PM > , 1. PRONE VITALS: TRISHAKAILEY 08/03/2020 4:00:48 PM > 166/67 HR 70 16 98% R/A , TRISHAKAILEY 08/03/2020 4:15:15 PM > 183/84 HR 74 16 98% R/A , TRISHAKAILEY 08/03/2020 4:30:41 PM > 219/97 HR 82 16 96% R/A , TRISHAKAILEY 08/03/2020 4:50:31 PM > 132/70 MANUAL B/P HR 79 16 98% R/A NOTES DR LEWIS NOTIFIED PATIENT HAD VACCINE 07/20/20. ALSO REQUESTED DR LEWIS TO ASSESS SCRATCHES ON PATIENT'S BACK. PATIENT STATES THESE ARE FROM HER KITTEN. NO DRAINAGE NOTED FROM SCRATCHES. PROCEDED WITH PROCEDURE SCHEDULED. Brandon COOL RN SPOKE TO DR. LEWIS, VERBAL CONSENT OBTAINED FROM PROVIDER TO DISCHARGE PATIENT, DISCHARGE INSTRUCTIONS PROVIDED SEE DISCHARGE SECTION. DISCHARGE: POST PAIN 0, DRESSING SITE DRY AND INTACT, IV N/A, GAIT STEADY, TEACHING COMPLETED, PATIENT ACKNOWLEDGES UNDERSTANDING YES, PATIENT DISCHARGED AT 1707 PN RADIOFREQUENCY DATE OF PROCEDURE 08/03/2020 . THERMO LESION RADIOFREQUENCY > 80 DEGREES : One[employer] - [employer] SYSTEM SET AT 60* WITH TISSUE TARGET TEMP > 80* OR MORE. STRAIGHT NEEDLE . SIDE: : RIGHT . LEVELS: : L3-L4, L4-L5. NEEDLE/CATHETER/GAUGE: : 17 . CANULA LENGTH: : 150 MM . ACTIVE TIP: : 4 MM . GROUNDING PAD PLACED ON AFFECTED SIDE (MUSCULAR AREA): : LUMBAR (POSTERIOR UPPER THIGH) . 1 ST LEVEL: : L2,INITAL POSTIVE SENSORY RESPONE (50 HZ) 0.1,MOTOR RESPONSE (2 HZ-UP TO 3 VOLTS) 3.0 ,PRE-LOCAL IMPEDENCE READING OHMS 556 ,POST-LOCAL IMPEDENCE READING OHMS 337 ,DURING RF IMPEDENCE READING OHMS 354 , 2 ND LEVEL: : L3,INITIAL POSITIVE SENSORY RESPONSE (50 HZ) 0.1,MOTOR RESPONSE (2 HZ- UP TO 3 VOLTS) 3.0 ,PRE-LOCAL IMPEDENCE READING OHMS 279 ,POST-LOCAL IMEPEDENCE READING OHMS 284 ,DURING RF IMPEDENCE READING OHMS 270 , 3 RD LEVEL: : L4,INITIAL POSITIVE SENSORY RESPONSE (50 HZ) 0.5,MOTOR RESPONSE (2HZ- UP TO 3 VOLTS) 3.0 ,PRE- LOCAL IMPEDENCE READING OHMS 746 ,POST-LOCAL IMPEDENCE READING OHMS 464 ,DURING RF IMPEDENCE READING OHMS 373 , PRE PROCEDURE DIAGNOSES 1. LUMBAR SPONDYLOSIS. 2. LUMBOSACRAL SPONDYLOSIS POST PROCEDURE DIAGNOSES 1. LUMBAR SPONDYLOSIS. 2. LUMBOSACRAL SPONDYLOSIS PROCEDURE RIGHT L3-L4 AND RIGHT L4-L5 LUMBAR FACET RADIOFREQUENCY SURGEON DR. GALI LEWIS HEALTH EVALUATOR NONE ANESTHESIA LOCAL PRE PROCEDURE REPORT THE PATIENT HAS HISTORY OF CHRONIC LOW BACK PAIN. I EVALUATED THE PATIENT AND REVIEWED THE CHART. I REVIEWED THE TWO DIAGNOSTIC TESTS, BILATERAL DIAGNOSTIC FACET BLOCK LUMBAR L3-L4, L4-L5 DATED 03/30/2020 AND RIGHT DIAGNOSTIC FACET BLOCK LUMBAR L3-L4, L4-L5 DATED 07/05/2020. I WENT OVER THE RISKS, ALTERNATIVES, AND BENEFITS ASSOCIATED WITH THIS PROCEDURE. I DISCUSSED THAT THE USE OF STEROIDS MAY CONTRIBUTE TO IMMUNOSUPPRESSION OF THE PATIENT'S BODY AGAINST INFECTIONS SUCH COVID-19. THE PATIENT IS AWARE OF THE POTENTIAL COMPLICATIONS ASSOCIATED WITH THIS VIRUS, INCLUDING, BUT NOT LIMITED TO, . THE PATIENT WOULD LIKE TO PROCEED AND GAVE CONSENT TO PERFORM THE PROCEDURE. THE PATIENT DENIES UNEXPLAINABLE WEIGHT LOSS, FEVER, CHILLS OR NEW CHANGES IN URINARY OR BOWEL CONTROL. THE PATIENT IS COVID-19 NEGATIVE DESCRIPTION OF PROCEDURE THE PATIENT WAS BROUGHT TO THE PROCEDURE ROOM AND PLACED IN THE PRONE POSITION. A TIMEOUT WAS PERFORMED WHERE LATERALITY AND THE SITE OF THE PROCEDURE WERE CHECKED AND CONFIRMED WITH EVERYONE IN THE ROOM. THE LUMBOSACRAL AREA WAS CLEANED WITH CHLORAPREP SOLUTION AND DRAPED ASEPTICALLY. THE PROCEDURE WAS DONE UNDER STERILE CONDITIONS. UNDER FLUOROSCOPIC GUIDANCE, TARGETS WERE SELECTED AT THE INTERSECTION OF THE RIGHT TRANSVERSE PROCESS OF L3, L4 AND L5 WITH ITS RESPECTIVE SUPERIOR ARTICULAR PROCESS. I CONFIRMED AGAIN WITH EVERYONE IN THE ROOM THE LATERALITY OF THE TARGET AT 1613. LIDOCAINE WAS USED TO NUMB THE SKIN AND THE SUBCUTANEOUS TISSUE BELOW IT. RADIOFREQUENCY CANNULAS, 17-GAUGE, 150 MM LONG WITH 4 MM ACTIVE TIP, WERE ADVANCED UNDER FLUOROSCOPIC GUIDANCE AND FOLLOWING PATIENT FEEDBACK UNTIL THE TARGET AREA WAS REACHED. POSITION OF THE CANNULA WAS VERIFIED WITH AP AND LATERAL VIEWS. AFTER PROPER POSITION OF THE CANNULA WAS ACHIEVED, WE WORKED WITH THE RIGHT SELECTED MEDIAN BRANCHES OF L2, L3 AND L4. WE MEASURED THE CORRESPONDING IMPEDANCES AND MOTOR RESPONSES INDICATED IN THE RADIOFREQUENCY WORK SHEET. POSITION OF THE CANNULA WAS VERIFIED AGAIN WITH AP AND LATERAL VIEWS. LIDOCAINE 1%, 2 ML, WAS INJECTED AT EACH LEVEL. RADIOFREQUENCY WAS DONE AT EACH LEVEL USING THE SmartMenuCard SYSTEM-- COOLED RF-- WITH A SETTING AT THE MACHINE OF 60 DEGREES WITH A TARGET TISSUE TEMPERATURE OF 80 TO 90 DEGREES FOR A MINIMUM OF 150 SECONDS. AFTER RADIOFREQUENCY WAS DONE, THE PATIENT RECEIVED BUPIVACAINE 0.125%,1 ML, WITH DEXAMETHASOME 3 MG AT EACH SITE. THERE WAS NO EVIDENCE OF BLOOD, PARESTHESIA OR CEREBROSPINAL FLUID DURING THE PROCEDURE. THE PATIENT WAS SENT TO THE RECOVERY ROOMS. THE PATIENT WAS MOVING THE EXTREMITIES AND DOING WELL. EBL LESS THAN 5 ML. THERE WERE NO COMPLICATIONS DURING THE PROCEDURE. FLUOROSCOPY TIME WAS 41 SECONDS POST PROCEDURE NOTE DEPENDING ON THE RESULTS, ALSO CONSIDER WORKING AT L5-S1. THE PATIENT WILL BE SEEN IN A FOLLOW UP IN THE NEXT FEW WEEKS. INSTRUCTIONS WERE GIVEN, QUESTIONS WERE ANSWERED, AND THE PATIENT EXPRESSED UNDERSTANDING AND AGREES WITH THE PLAN. I, AYLIN SAAVEDRA, DOCUMENTED THE ABOVE INFORMATION ACTING A SCRIBE FOR DR. LEWIS. I HAVE REVIEWED THE ABOVE DOCUMENT, WRITTEN BY JUSTIN VASQUESIBE, AND I VERIFY THAT IT IS ACCURATE PROCEDURE CODES 19110 DESTROY LUMB/SAC FACET JNT, MODIFIERS: RT 15765 DESTROY L/S FACET JNT ADDL, MODIFIERS: RT DISPOSITION & COMMUNICATION FOLLOW UP FOLLOW UP WITH MEASURING MACHINE OPERATOR (REASON: POST RIGHT COOL RADIOFREQUENCY LUMBAR L3-L4, L4-L5) ELECTRONICALLY SIGNED BY GALI LEWIS MD, MD ON 08/05/2020 AT 12:58 PM EST DISCLAIMER : THIS IS A VISIT SUMMARY EXTRACTED FROM THE [email or web address] CHART. IT IS NOT A COPY OF THE [email or web address] PROGRESS NOTE. VINCENT
== END ==
LOC: M PAIN 14:00
PROVIDERS: ATTEND Anesthesiology
DX: M47.816 Spondylosis without myelopathy or radiculopathy, lumbar region (principal); M47.817 Spondylosis without myelopathy or radiculopathy, lumbosacral region; G47.33 Obstructive sleep apnea (adult) (pediatric); E55.9 Vitamin D deficiency, unspecified; D50.9 Iron deficiency anemia, unspecified; R73.01 Impaired fasting glucose; K21.9 Gastro-esophageal reflux disease without esophagitis; Z86.14 Personal history of Methicillin resistant Staphylococcus aureus infection; Z98.84 Bariatric surgery status; Z96.653 Presence of artificial knee joint, bilateral; Z87.891 Personal history of nicotine dependence; Z88.0 Allergy status to penicillin; Z88.1 Allergy status to other antibiotic agents; Z88.4 Allergy status to anesthetic agent; Z88.5 Allergy status to narcotic agent; Z88.8 Allergy status to other drugs, medicaments and biological substances; Z91.09 Other allergy status, other than to drugs and biological substances; E66.01 Morbid (severe) obesity due to excess calories; Z68.42 Body mass index [BMI] 45.0-49.9, adult; Z79.899 Other long term (current) drug therapy
CPT/HCPCS: 64635; 64636; J1100

== ENCOUNTER → 2020-08-16 | Outpatient (REF) | payer MEDICARE, MEDICAID ==
[~2020-08-16] MED LIST changes: -BUPIVACAINE HCL 0.25% 30ML VIAL As Ordered ONE; -LIDOCAINE 1% SDV 30ML VIAL As Ordered ONE; -dexameTHASONE 10MG/1ML VIAL PRES.FREE (J1100 PER 1MG) As Ordered ONE; -diazePAM 2 MG TAB As Ordered ONE; -diphenhydrAMINE 25MG CAP As Ordered ONE; -oxyCODONE 5MG TAB As Ordered ONE
[2020-08-16 12:08] LABS: BASO # 0.1 10^3/uL (0.0-0.2); BASO % 0.8 % (0.0-1.0); EOS # 0.2 10^3/uL (0.0-0.5); EOS % 1.7 % (0.0-3.0); HEMATOCRIT 38.3 % (36.0-47.0); HEMOGLOBIN 11.2 g/dl (12.0-15.5); LYMPH # 1.9 10^3/uL (1.5-5.0); LYMPH % 22.5 % (24.0-44.0); MEAN CORPUSCULAR HEMOGLOBIN 25.8 pg (27.0-33.0); MEAN CORPUSCULAR HGB CONC 29.2 g/dl (32.0-36.5); MEAN CORPUSCULAR VOLUME 88.2 fl (80.0-96.0); MONO # 0.5 10^3/uL (0.0-0.8); MONO % 5.6 % (0.0-5.0); NEUTROPHILS # 5.9 10^3/uL (1.5-8.5); NEUTROPHILS % 69.2 % (36.0-66.0); PLATELET COUNT, AUTOMATED 336 10^3/uL (150-450); RED BLOOD COUNT 4.34 10^6/uL (4.00-5.40); WHITE BLOOD COUNT 8.6 10^3/uL (4.0-10.0)
[2020-08-16 12:10] LABS: HEMATOCRIT 38.3 % (36.0-47.0)
[2020-08-16 12:50] LABS: ALBUMIN 3.7 GM/DL (3.2-5.2); ALT/SGPT 22 U/L (12-78); BILIRUBIN,TOTAL 0.6 MG/DL (0.2-1.0); BLOOD UREA NITROGEN 15 MG/DL (7-18); CALCIUM LEVEL 8.1 MG/DL (8.8-10.2); CARBON DIOXIDE LEVEL 29 MEQ/L (21-32); CHLORIDE LEVEL 109 MEQ/L (98-107); FERRITIN 17 NG/ML (8-252); FREE T4 1.02 NG/DL (0.76-1.46); GLOMERULAR FILTRATION RATE > 60.0 (>45); GLUCOSE, FASTING 111 MG/DL (70-100); IRON (FE) 34 UG/DL (50-170); PERCENT SATURATION 8.8 % (13.2-45.0); POTASSIUM SERUM 3.7 MEQ/L (3.5-5.1); SODIUM LEVEL 142 MEQ/L (136-145); TOTAL IRON BINDING CAPACITY 386 UG/DL (250-450); TOTAL PROTEIN 7.1 GM/DL (6.4-8.2)
[2020-08-16 13:50] LABS: MALB URINE SIEMENS 23.3 MG/L; MAU/CREAT RATIO 11.2 MCG/MG (0.0-30.0)
[2020-08-16 15:37] LABS: HEMOGLOBIN A1c 5.8 %
== END ==
LOC: M SFHCPLAZ 09:39
PROVIDERS: ATTEND Family Medicine
DX: E06.3 Autoimmune thyroiditis (principal); D50.9 Iron deficiency anemia, unspecified; R73.01 Impaired fasting glucose; D51.9 Vitamin B12 deficiency anemia, unspecified

== ENCOUNTER → 2020-08-16 | Outpatient (CLI) | payer MEDICARE, MEDICAID ==
--- NOTE | 2020-08-23 02:18 | ECWPNPC ---
PATIENT NAME: NISHA MUNSON : 1955 GENDER: FEMALE VISIT DATE: 08/16/2020 DISCHARGE DATE: 08/16/20 1155 VISIT LOCKED DATE TIME: PHYSICIAN: VIOLETA TITUS PHYSICIAN PAGER NO: ACTIVE RESOURCE: VIOLETA TITUS REASON FOR APPOINTMENT 1. POST RIGHT COOL RADIOFREQUENCY LUMBAR L3-L4, L4-L5 HISTORY OF PRESENT ILLNESS GENERAL: HERE FOR POST PROCEDURE FOLLOW-UP. HAD RIGHT L3-4, L4-5 COOL RADIOFREQUENCY ON 08/03/2020. REPORTING MARKED IMPROVEMENT IN LOW BACK PAIN. DEVELOPED SIGNIFICANT CONSTANT BURNING PAIN OVER RIGHT BUTTOCK AND INTO RIGHT LATERAL THIGH APPROXIMATELY 2 DAYS POSTPROCEDURE. STATES IT FEELS LIKE A SUNBURN. PAIN IS AGGRAVATED WHEN SHE IS SITTING ON BUTTOCK AREA OR LAYING ON RIGHT SIDE. UNABLE TO TAKE GABAPENTIN, LYRICA OR AMITRIPTYLINE DUE TO SIDE EFFECTS. INFORMED HER THAT I FEEL THAT THIS MIGHT BE NERVE IRRITATION FROM THE PROCEDURE AND IT SHOULD DISSIPATE OVER THE COURSE OF THE NEXT 6-8 WEEKS. SHE APPLIES ICE AND THIS IS HELPFUL. DOES FEEL THOUGH IT MAY BE A LITTLE BIT BETTER THAN IT WAS INITIALLY A FEW WEEKS AGO. -. FALL RISK SCREENING: SCREENING :NO FALLS REPORTED IN THE LAST YEAR PAIN SCREENING: PATIENT HAS A COMPLAINT OF ACUTE OR CHRONIC PAIN :YES LOCATION OF PAIN:LOW BACK, RIGHT HIP, OTHER: INTENSITY OF PAIN (SCALE OF 1 TO 10): BUTTOCKS AREA "BURNING" RATES IT A 5 IN BURNING NOT PAIN WHAT DOES YOUR PAIN FEEL LIKE:BURNING, CONTINOUS NURSING NOTE: -. PAIN CENTER INTAKE QUESTIONS: DO YOU HAVE A HISTORY OF MRSA? :NO DO YOU TAKE A BLOOD THINNERS? :YES DO YOU HAVE ANY BLEEDING DISORDERS? :NO ANY NEW NUMBNESS OR WEAKNESS IN YOUR LEGS OR ARMS? :NO ANY PACEMAKER,DEFIBRILLATOR, OR DORSAL COLUMN STIMULATOR? :NO DO YOU HAVE ANY RASHES OR OPEN SORES? :NO ARE YOU ALLERGIC TO IV DYE? :NO ARE YOU DIABETIC? :NO ANY NEW PROBLEMS WITH YOUR MEDICATIONS? :NO HAVE YOU RECEIVED A VACCINE IN THE PAST 30 DAYS? :NO DO YOU PLAN TO RECEIVE A VACCINE IN THE NEXT 21 DAYS? :NO DO YOU NEED ANY PRESCRIPTION? :NO DO YOU TAKE ANY IMMUNOSUPPRESSIVE MEDICATIONS? :NO IS THERE A CHANCE YOU COULD BE ? :NO ARE YOU BREAST FEEDING? :NO CURRENT MEDICATIONS TAKING VITAMIN B12 1000 MCG SC . SC EVERY 8 WEEKS TAKING PROAIR HFA 108 (90 BASE) MCG/ACT AEROSOL SOLUTION 2 PUFFS NEEDED INHALATION QID PRN TAKING FERROUS GLUCONATE 325 MG CAPSULE 1 TABLET ORALLY TWICE DAILY TAKING VITAMIN D 5000 TABLET 1 TABLET ORALLY TID TAKING CALCIUM 600+D HIGH POTENCY 600-400 MG-UNIT TABLET 1 TABLET WITH FOOD ORALLY TWICE A DAY TAKING RECLAST 5 MG/100ML SOLUTION DIRECTED INTRAVENOUS TAKING DICLOFENAC SODIUM 1 % GEL 4 GM TRANSDERMAL FOUR TIMES A DAY TO B KNEES TAKING OXYCODONE HCL 10 MG TABLET 1 TABLET NEEDED ORALLY 3 TIMES A DAY TAKING SUCRALFATE 1 GM TABLET 1 TABLET ON AN EMPTY STOMACH ORALLY AC TID TAKING PANTOPRAZOLE SODIUM 40 MG TABLET DELAYED RELEASE 1 TABLET ORALLY BID TAKING XARELTO 20 MG TABLET 1 TAB(S) ORAL AT DINNER TIME TAKING METOPROLOL SUCCINATE 25 MG CAPSULE ER 24 HOUR SPRINKLE 1 CAPSULE ORALLY ONCE A DAY FOR SBP>140 TAKING NYSTATIN 884414 UNITS/G TOPICAL OINTMENT . APPLIED TOPICALLY DIRECTED BID X 10 DAYS C FLARES TAKING CLARITIN 10 MG TABLET 1 TABLET ORALLY ONCE A DAY, NOTES: 08/02 0800 TAKING COMPRESSION STOCKINGS 30-40 MMHG KNEE HIGH I87.2 DAILY, NOTES: 08/02 TAKING TYLENOL 8 HOUR 650 MG TABLET EXTENDED RELEASE 2 TABLETS NEEDED ORALLY EVERY MORNING, NOTES: 08/03 0800 TAKING OXYCODONE-ACETAMINOPHEN 7.5-325 MG TABLET 1 TABLET NEEDED ORALLY EVERY 8 HRS, NOTES: 08/02 1400 TAKING FLEXERIL 10 MG 30 10 MG TABLETS ONE TABLET ORALLY EVERY 8 HOURS PRN PAIN TAKING FREESTYLE PRECISION JONAH TEST - STRIP DIRECTED _ SC BID, E11.9 TAKING ACCU-CHEK MAMI 1 DEVICE DIRECTED E11.9 BID TAKING BLOOD GLUCOSE TEST 1 STRIP DIRECTED E11.9 BID TAKING ACCU-CHEK SOFT TOUCH LANCETS 1 1 LANCET E11.9 BID MEDICATION LIST REVIEWED AND RECONCILED WITH THE PATIENT PAST MEDICAL HISTORY 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 12/2008-SETTER HYPERTENSION, ESSENTIAL ALLERGIC RHINITIS H/O IMMUNOTHERAPY X >10Y-STOPPED 2 INADEQUATE RESPONSE NONALCOHOLIC FATTY LIVER DISEASE C MILD CHRONIC ELEVATED ALP OBESITY, MORBID STATUS POST R-Y GASTRIC BYPASS 06/2006, 12/29/15-MARYJANE VITAMIN D DEFICIENCY ANEMIA, IRON/FE DEFICIENCY HISTORY OF RIGHT LOWER EXTREMITY DVT X2 IMPAIRED FASTING GLUCOSE HISTORY OF NICOTINE ADDICTION-SMOKED 7 CIGS QD X 10Y, QUIT AT 28 YO-04/2012 FEV1 2.3L (99%)/RATIO 108% GERD-11/2014 NORMAL EGD-REINDL TUBULAR ADENOMA BY 11/2014 COLONOSCOPY-REINDL ATRIAL FIBRILLATION, [id number] POD 2 TKR 05/2015-SP PULMONARY VEIN ISOLATION, ILR [id number]-PYHAU-17/9/19 LISA, MODERATE-07/2017 HST JLUIS 17 C SAO2 TO 88% HO MRSA ABSCESS- HAS BEEN TREATED AND TESTED NEGATIVE LUMBAR DJD-11/2017 MRI L5/S1 BULGE EXTENDING INTO B NF DISPLACING R S1 ROOT, MILD L4/5 CCS R T5 ZOSTER RXED C VALCYC/PRED 05/2018 IMPINGEMENT AND SPURRING LEFT SHOULDER ALLERGIES PENICILLIN (FOR ALLERGIES USE ONLY): RASH - ALLERGY ERYTHROMYCIN: RASH - ALLERGY DOXYCYCLINE HYCLATE: RASH - ALLERGY TALWIN: RASH HIVES - ALLERGY NOVACAINE (PT NOTES SHE WAS OK WITH RECENT LIDOCAI: SWELLING - ALLERGY BACTRIM: RASH - ALLERGY TETRACYCLINE HCL: HIVES - ALLERGY VICODIN: ITCH - ALLERGY SINGULAIR: GERD - SIDE EFFECTS CODEINE SULFATE: UNCONSCIOUSNESS - ALLERGY GABAPENTIN: IRRITABILITY/AGGRESSIVENESS - SIDE EFFECTS LYRICA: SHAKING /FORGETFULNESS AMITRIPTYLINE HCL: MEMORARY ISSUES - SIDE EFFECTS ADHESIVE: RED,IRRITATION IF ON LONG TIME - SIDE EFFECTS SURGICAL HISTORY I&D ABDOMEN ABSCESS 05/2010 OPEN GASTRIC BYPASS 2007 PARTIAL HYSTERECTOMY 2008 RIGHT SHOULDER SURGERY (X2) 2008 AND 2009 APPENDECTOMY AGE 9 RIGHT WRIST SURGERY X 2 1980S THROAT TUMOR AGE 16 SURGERY FOR DEVIATED SEPTUM AGE 18 AD [id number] 02/2014 R TKR- DR. HUYNH-[place] 06/20/15 GASTRIC BYPASS REVISION-MARYJANE 12/29/15 L TKR-DR. HUYNH-SOS 01/01/17 ROBOTIC VENTRAL HERNIA REPAIR 2 SURGICAL VENTRAL HERNIA-MARYJANE 05/16/17 HAS IVC FILTER CARDIAC ABLATION AND MPLANTED CARDIAC MONTIOR 06/03/19 FAMILY HISTORY FATHER: 66 YRS, KIDNEY FAILURE MOTHER: 78 YRS, HTN, PACEMAKER, DIAGNOSED WITH HYPERTENSION SIBLINGS: ALIVE, HYPERTENSION, DIABETES MATERNAL GRAND FATHER: , BRAIN CANCER MATERNAL GRAND MOTHER: , COLON CARCINOMA 2 BROTHER(S) , 1 SISTER(S) . 1 SON(S) , 2 DAUGHTER(S) . MGF AND COUSIN HAD COLON CA.\\\\\\\\NDAUGHTERS-CHRONIC BACK PAIN\\\\\\\\NSON-HAD THYROIDECTOMY--UNSURE OF DIAGNOSIS. SOCIAL HISTORY GENERAL: TOBACCO USE ARE YOU A:FORMER SMOKER HOW LONG HAS IT BEEN SINCE YOU LAST SMOKED?> 10 YEARS LATEX QUESTIONNAIRE LATEX ALLERGY : HAVE YOU EVER DEVELOPED ANY TYPE OF REACTION AFTER HANDLING LATEX PRODUCTS SUCH RUBBER GLOVES, CONDOMS, DIAPHRAGMS, BALLOONS, SOCKS, OR UNDERWEAR?NO ADHESIVE SENSITIVITY LATEX ALLERGY : HAVE YOU EVER DEVELOPED ANY TYPE OF REACTION DURING OR AFTER DENTAL APPOINTMENT, VAGINAL/RECTAL EXAMINATION, SURGICAL PROCEDURE, OR ANY OTHER EXPOSURE?NO DATE ASKED : 08/03/2020 LATEX RISK : HAVE YOU EVER HAD ANY DIFFICULTY BREATHING OR HIVES AFTER EATING OR HANDLING ANY FRUITS, OR VEGETABLES; SUCH KIWI, BANANAS, STONE FRUITS, OR CHESTNUTSNO LATEX RISK : DO YOU HAVE A PREVIOUS PERSONAL HISTORY OF MORE THAN NINE SURGERIES, SPINA BIFIDA, OR REPEATED CATHERIZATIONS? YES - PLEASE INDICATE : > 9 SURGERIES LATEX RISK : ARE YOU FREQUENTLY EXPOSED TO LATEX PRODUCTS IN YOUR OCCUPATION?NO BMI CARE GOAL FOLLOW-UP ABOVE NORMAL BMI FOLLOW-UPLIFESTYLE EDUCATION REGARDING DIET ALCOHOL SCREENING DID YOU HAVE A DRINK CONTAINING ALCOHOL IN THE PAST YEAR?NO POINTS0 INTERPRETATIONNEGATIVE RECREATIONAL DRUG USE DRUG USE?NO CAFFEINE CAFFEINE USE?NO SEXUAL HX HAD SEX IN THE LAST 12 MONTHS (VAGINAL, ORAL, OR ANAL)?NO LMP:HYSTER HAVE YOU EVER HAD AN STD?NO HIV / HEP-C SCREENING HIV TEST OFFERED TO PATIENT:YES DATE OFFERED:11/05/2017 TEST ACCEPTED:NO HEP-C TEST OFFERED TO PATIENT:YES DATE OFFERED:11/22/2016 REASON:PATIENT DECLINED TEST ACCEPTED:NO REASON:PATIENT DECLINED BROCHURE PROVIDED TO PATIENTYES MORAVIAN [id number] [employer]ANG[employer] LANGUAGES SPOKEN:ESTONIAN EDUCATION LEVEL OF EDUCATION:NOT FINISHED COLLEGE LEARNING BARRIERS / SPECIAL NEEDS CHANGE FROM LAST VISIT?NO BARRIERS TO LEARNING?NO HEARING IMPAIRED?NO VISION IMPAIRED?YES COGNITIVELY IMPAIRED?NO :CORRECTIVE LENSES READINESS TO LEARN?YES LEARNING PREFERENCES?NO LEARNING CAPABILITIES PRESENT?YES EMOTIONAL BARRIERS?NO SPECIAL DEVICES?YES :CANE, WALKER, OTHER WALKING CANE 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 DIET: REGULAR. EXERCISE: NO REGULAR EXERCISE, SMALL WALKS. MARITAL STATUS: . PAIN CLINIC PFS, CLERGY, PUBLIC HEALTH REFERRALS PFS REFERRAL NEEDED?NO CLERGY REFERRAL NEEDED?NO PUBLIC HEALTH REFERRAL NEEDED?NO HAS THE PATIENT BEEN EDUCATED REGARDING HIS/HER PLAN OF CARE?YES HAS THE PATIENT BEEN EDUCATED REGARDING PAIN, THE RISK FOR PAIN, THE IMPORTANCE OF EFFECTIVE PAIN MANAGEMENT, AND THE PAIN ASSESSMENT PROCESS?YES ADVANCE DIRECTIVE ADVANCE DIRECTIVE DISCUSSED WITH PATIENT:YES PT. HAS HCP, DAUGHTER DARIO PICKETT [phone], DAUGHTER DEANDRA BECKHAM [phone] HOSPITALIZATION/MAJOR DIAGNOSTIC PROCEDURE I&D MRSA ABDOMEN ABSCESS 05/2010 ACUTE DYSPNEA/HYPOXIA ([facility] PRIOR NORMAL MEAL)-ELISA AWOKE 530 2 WANDA, THEN IMMEDIATELY CAUSED COUGH/DYSPNEA-FELT ASPIRATION PN, IN ED RECEIVED ALBUTEROL NEB X 3 THEN WENT INTO AFIB C RVR, CONVERTED IN ED C IV AMIODARONE 150 X 2, -BLE DVT US,- CXR X 2 (09/09, 09/09-09/11/14 A. FIB WITH SURGERIES SURGERIES REVIEW OF SYSTEMS CONSTITUTIONAL: ANY RECENT FEVER NO . CHILLS NO . WEIGHT CHANGE OF UNKNOWN REASONS NO . GASTROENTEROLOGY: NEW UNEXPLAINABLE CHANGES IN BOWEL CONTROL NO . CONSTIPATION NO . GENITOURINARY: ANY NEW CHANGE IN BLADDER CONTROL? NO . NEUROLOGY: NEW ONSET DIZZINESS OR NEUROLOGICAL CHANGES NOT MENTIONED NO . NEW NUMBNESS OR PAIN PATTERNS NOT MENTIONED AND PERTINENT TO TODAY'S VISIT NO . CARDIOLOGY: NEW CHEST PRESSURE NO . NEW CHEST PAIN NO . RESPIRATORY: UNEXPLAINABLE COUGH NO . NEW SHORTNESS OF BREATH NO . VITAL SIGNS WT 274.2 LBS, HT 63 IN, BMI 48.57 INDEX, BP 184/77 MM HG, HR 84 /MIN, RR 20 /MIN, TEMP 98.2 F, OXYGEN SAT % 100%, SAFE IN ENV? (Y/N) YES, NA INITIALS SC 11:34, REVIEWED BY: KG. EXAMINATION GENERAL EXAMINATION: GENERAL AWAKE,ALERT ,PLEASANT . PSYCH AFFECT NORMAL . LUNGS: LUNG DAVID ARE CLEAR TO AUSCULTATION BILATERALLY. GOOD MOVEMENT OF AIR . HEART: S1, S2 IN A REGULAR RATE AND RHYTHM. NO SIGNIFICANT MURMURS, RUBS OR GALLOPS NOTED . LUMBAR:NO REDNESS OR SWELLING IN THE LOW BACK OR BUTTOCK AREA . ASSESSMENTS OTHER CHRONIC PAIN - G89.29 (PRIMARY) LUMBAR SPONDYLOSIS - M47.816 TREATMENT OTHER CHRONIC PAIN PAIN PROCEDURE LOGDATE OF ZOIFCHHTL97/09/2020PROCEDURE:RIGHT COOL RADIOFREQUENCY LUMBAR L3-L4 L4-A3KKFNIC OF PRE [id number] MG BENADRYL 2 MG VALIUM 10 MG OXYCODONERESULT:MARKED IMPROVEMENT IN LOW BACK PAIN. NEW ONSET OF RIGHT BUTTOCK AND THIGH BURNING PAIN POSTPROCEDURE NOTES: CONTINUE USE OF ICE TO RIGHT BUTTOCK AREA. CONTINUE HOME EXERCISE AND STRETCHING. FOLLOW-UP IS SCHEDULED IN 6-[address] LEWIS IS HERE. PROCEDURE CODES FA211 ESTABILISHED PATIENT [facility] CHARGE DISPOSITION & COMMUNICATION FOLLOW UP 6-8WKS (REASON: CHECK ON RIGHT SIDED BURNING PAIN POSTPROCEDURECOOL RF) ELECTRONICALLY SIGNED BY YEVTTE HINOJOSA ON 08/22/2020 AT 08:38 PM EST DISCLAIMER : THIS IS A VISIT SUMMARY EXTRACTED FROM THE [employer] CHART. IT IS NOT A COPY OF THE [employer] PROGRESS NOTE. VINCENT
== END ==
LOC: M PAIN 11:15
PROVIDERS: ATTEND Nurse Practitioner Family
DX: M47.816 Spondylosis without myelopathy or radiculopathy, lumbar region (principal); G89.29 Other chronic pain; E55.9 Vitamin D deficiency, unspecified; D50.9 Iron deficiency anemia, unspecified; Z86.718 Personal history of other venous thrombosis and embolism; R73.01 Impaired fasting glucose; G47.33 Obstructive sleep apnea (adult) (pediatric); Z86.14 Personal history of Methicillin resistant Staphylococcus aureus infection; Z98.84 Bariatric surgery status; Z96.653 Presence of artificial knee joint, bilateral; Z87.891 Personal history of nicotine dependence; Z88.0 Allergy status to penicillin; Z88.1 Allergy status to other antibiotic agents; Z88.4 Allergy status to anesthetic agent; Z88.5 Allergy status to narcotic agent; Z88.8 Allergy status to other drugs, medicaments and biological substances; Z91.09 Other allergy status, other than to drugs and biological substances; E66.01 Morbid (severe) obesity due to excess calories; Z68.42 Body mass index [BMI] 45.0-49.9, adult; Z79.01 Long term (current) use of anticoagulants; Z79.899 Other long term (current) drug therapy

== ENCOUNTER → 2020-10-07 | Outpatient (CLI) | payer MEDICARE, MEDICAID ==
[~2020-10-07] MED LIST changes: -CYAN500T10 PO; +VITA500T37 PO
--- NOTE | 2020-10-07 23:48 | ECWPNPC ---
PATIENT NAME: NISHA MUNSON : 1955 GENDER: FEMALE VISIT DATE: 10/07/2020 DISCHARGE DATE: 10/07/20924 VISIT LOCKED DATE TIME: PHYSICIAN: VIOLETA TITUS PHYSICIAN PAGER NO: ACTIVE RESOURCE: VIOLETA TITUS REASON FOR APPOINTMENT 1. LOW BACK HISTORY OF PRESENT ILLNESS GENERAL: HERE FOR F/U OF CHRONIC RIGHT SIDED LOW BACK PAIN.CONTINUES TO BENEFIT FROM COOL RF DONE IN JULY.STATES BURNING PAIN AND RIGHT LOW BACK TENDERNESS HAS IMPROVED.CONTINUES TO HAVE TENDERNESS OVER RIGHT SIJ REGION. -. FALL RISK SCREENING: SCREENING :NO FALLS REPORTED IN THE LAST YEAR PAIN SCREENING: PATIENT HAS A COMPLAINT OF ACUTE OR CHRONIC PAIN :YES LOCATION OF PAIN:LOW BACK INTENSITY OF PAIN (SCALE OF 1 TO 10):5 WHAT DOES YOUR PAIN FEEL LIKE:TENDER DURATION:INTERMITTENT PAIN IS INCREASED BY:ACTIVITIES, PROLONGED STANDING PAIN IS DECREASED BY:OTHERS HEAT/ICE NURSING NOTE: -. PAIN CENTER INTAKE QUESTIONS: DO YOU HAVE A HISTORY OF MRSA? :NO DO YOU TAKE A BLOOD THINNERS? :YES DO YOU HAVE ANY BLEEDING DISORDERS? :NO ANY NEW NUMBNESS OR WEAKNESS IN YOUR LEGS OR ARMS? :NO ANY PACEMAKER,DEFIBRILLATOR, OR DORSAL COLUMN STIMULATOR? :NO LOOP RECODER DO YOU HAVE ANY RASHES OR OPEN SORES? :YES BETWEEN HER LEGS ARE YOU ALLERGIC TO IV DYE? :NO ARE YOU DIABETIC? :NO PRE DIABETIC ANY NEW PROBLEMS WITH YOUR MEDICATIONS? :NO HAVE YOU RECEIVED A VACCINE IN THE PAST 30 DAYS? :NO DO YOU PLAN TO RECEIVE A VACCINE IN THE NEXT 21 DAYS? :NO DO YOU NEED ANY PRESCRIPTION? :NO DO YOU TAKE ANY IMMUNOSUPPRESSIVE MEDICATIONS? :NO IS THERE A CHANCE YOU COULD BE ? :NO ARE YOU BREAST FEEDING? :NO CURRENT MEDICATIONS TAKING VITAMIN B12 1000 MCG SC . SC EVERY 8 WEEKS TAKING FERROUS GLUCONATE 325 MG CAPSULE 1 TABLET ORALLY TWICE DAILY TAKING VITAMIN D 5000 TABLET 1 TABLET ORALLY TID TAKING CALCIUM 600+D HIGH POTENCY 600-400 MG-UNIT TABLET 1 TABLET WITH FOOD ORALLY TWICE A DAY TAKING RECLAST 5 MG/100ML SOLUTION DIRECTED INTRAVENOUS TAKING OXYCODONE HCL 7.5 MG TABLET ABUSE-DETERRENT 1 TABLET NEEDED ORALLY 3 TIMES A DAY TAKING PANTOPRAZOLE SODIUM 40 MG TABLET DELAYED RELEASE 1 TABLET ORALLY BID TAKING XARELTO 20 MG TABLET 1 TAB(S) ORAL AT DINNER TIME TAKING NYSTATIN [id number] UNITS/G TOPICAL OINTMENT . APPLIED TOPICALLY DIRECTED BID X 10 DAYS C FLARES TAKING CLARITIN 10 MG TABLET 1 TABLET ORALLY ONCE A DAY TAKING TYLENOL 8 HOUR 650 MG TABLET EXTENDED RELEASE 2 TABLETS NEEDED ORALLY EVERY MORNING TAKING FLEXERIL 10 MG 30 10 MG TABLETS ONE TABLET ORALLY EVERY 8 HOURS PRN PAIN TAKING ACCU-CHEK MAMI 1 DEVICE DIRECTED E11.9 BID TAKING BLOOD GLUCOSE TEST 1 STRIP DIRECTED E11.9 BID TAKING ACCU-CHEK SOFT TOUCH LANCETS 1 1 LANCET E11.9 BID TAKING METFORMIN HCL ER 500 MG TABLET EXTENDED RELEASE 24 HOUR 1 TAB WITH LARGEST MEAL ORALLY DAILY TAKING PROAIR HFA 108 (90 BASE) MCG/ACT AEROSOL SOLUTION 2 PUFFS NEEDED INHALATION QID PRN TAKING SUCRALFATE 1 GM TABLET TAKE ONE TABLET BY MOUTH THREE TIMES DAILY NOT-TAKING DICLOFENAC SODIUM 1 % GEL 4 GM TRANSDERMAL FOUR TIMES A DAY TO B KNEES NOT-TAKING METOPROLOL SUCCINATE 25 MG CAPSULE ER 24 HOUR SPRINKLE 1 CAPSULE ORALLY ONCE A DAY FOR SBP>140 NOT-TAKING COMPRESSION STOCKINGS 30-40 MMHG KNEE HIGH I87.2 DAILY NOT-TAKING OXYCODONE-ACETAMINOPHEN 7.5-325 MG TABLET 1 TABLET NEEDED ORALLY EVERY 8 HRS NOT-TAKING FREESTYLE PRECISION JONAH TEST - STRIP DIRECTED _ SC BID, E11.9 MEDICATION LIST REVIEWED AND RECONCILED WITH THE PATIENT PAST MEDICAL HISTORY 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 12/2008-SETTER HYPERTENSION, ESSENTIAL ALLERGIC RHINITIS H/O IMMUNOTHERAPY X >10Y-STOPPED 2 INADEQUATE RESPONSE NONALCOHOLIC FATTY LIVER DISEASE C MILD CHRONIC ELEVATED ALP OBESITY, MORBID STATUS POST R-Y GASTRIC BYPASS 06/2006, 12/29/15-MARYJANE VITAMIN D DEFICIENCY ANEMIA, IRON/FE DEFICIENCY HISTORY OF RIGHT LOWER EXTREMITY DVT X2 IMPAIRED FASTING GLUCOSE HISTORY OF NICOTINE ADDICTION-SMOKED 7 CIGS QD X 10Y, QUIT AT 28 YO-04/2012 FEV1 2.3L (99%)/RATIO 108% GERD-11/2014 NORMAL EGD-REINDL TUBULAR ADENOMA BY 11/2014 COLONOSCOPY-REINDL ATRIAL FIBRILLATION, [id number] POD 2 TKR 05/2015-SP PULMONARY VEIN ISOLATION, ILR PMBHCFG-XVTUW-53/9/19 LISA, MODERATE-07/2017 HST JLUIS 17 C SAO2 TO 88% HO MRSA ABSCESS- HAS BEEN TREATED AND TESTED NEGATIVE LUMBAR DJD-11/2017 MRI L5/S1 BULGE EXTENDING INTO B NF DISPLACING R S1 ROOT, MILD L4/5 CCS R T5 ZOSTER RXED C VALCYC/PRED 05/2018 IMPINGEMENT AND SPURRING LEFT SHOULDER ALLERGIES PENICILLIN (FOR ALLERGIES USE ONLY): RASH - ALLERGY ERYTHROMYCIN: RASH - ALLERGY DOXYCYCLINE HYCLATE: RASH - ALLERGY TALWIN: RASH HIVES - ALLERGY NOVACAINE (PT NOTES SHE WAS OK WITH RECENT LIDOCAI: SWELLING - ALLERGY BACTRIM: RASH - ALLERGY TETRACYCLINE HCL: HIVES - ALLERGY VICODIN: ITCH - ALLERGY SINGULAIR: GERD - SIDE EFFECTS CODEINE SULFATE: UNCONSCIOUSNESS - ALLERGY GABAPENTIN: IRRITABILITY/AGGRESSIVENESS - SIDE EFFECTS LYRICA: SHAKING /FORGETFULNESS AMITRIPTYLINE HCL: MEMORARY ISSUES - SIDE EFFECTS ADHESIVE: RED,IRRITATION IF ON LONG TIME - SIDE EFFECTS SOCIAL HISTORY GENERAL: TOBACCO USE ARE YOU A:FORMER SMOKER HOW LONG HAS IT BEEN SINCE YOU LAST SMOKED?> 10 YEARS LATEX QUESTIONNAIRE LATEX ALLERGY : HAVE YOU EVER DEVELOPED ANY TYPE OF REACTION AFTER HANDLING LATEX PRODUCTS SUCH RUBBER GLOVES, CONDOMS, DIAPHRAGMS, BALLOONS, SOCKS, OR UNDERWEAR?NO ADHESIVE SENSITIVITY LATEX ALLERGY : HAVE YOU EVER DEVELOPED ANY TYPE OF REACTION DURING OR AFTER DENTAL APPOINTMENT, VAGINAL/RECTAL EXAMINATION, SURGICAL PROCEDURE, OR ANY OTHER EXPOSURE?NO LATEX RISK : HAVE YOU EVER HAD ANY DIFFICULTY BREATHING OR HIVES AFTER EATING OR HANDLING ANY FRUITS, OR VEGETABLES; SUCH KIWI, BANANAS, STONE FRUITS, OR CHESTNUTSNO LATEX RISK : DO YOU HAVE A PREVIOUS PERSONAL HISTORY OF MORE THAN NINE SURGERIES, SPINA BIFIDA, OR REPEATED CATHERIZATIONS? YES - PLEASE INDICATE : > 9 SURGERIES LATEX RISK : ARE YOU FREQUENTLY EXPOSED TO LATEX PRODUCTS IN YOUR OCCUPATION?NO DATE ASKED : 10/07/2020 ALCOHOL USE: NO. BMI CARE GOAL FOLLOW-UP ABOVE NORMAL BMI FOLLOW-UPLIFESTYLE EDUCATION REGARDING DIET ALCOHOL SCREENING DID YOU HAVE A DRINK CONTAINING ALCOHOL IN THE PAST YEAR?NO POINTS0 INTERPRETATIONNEGATIVE RECREATIONAL DRUG USE DRUG USE?NO CAFFEINE CAFFEINE USE?NO SEXUAL HX HAD SEX IN THE LAST 12 MONTHS (VAGINAL, ORAL, OR ANAL)?NO LMP:HYSTER HAVE YOU EVER HAD AN STD?NO HIV / HEP-C SCREENING HIV TEST OFFERED TO PATIENT:YES DATE OFFERED:11/05/2017 TEST ACCEPTED:NO HEP-C TEST OFFERED TO PATIENT:YES DATE OFFERED:11/22/2016 REASON:PATIENT DECLINED TEST ACCEPTED:NO REASON:PATIENT DECLINED BROCHURE PROVIDED TO PATIENTYES UATSDIN [id number] CAODAISM LANGUAGE LANGUAGES SPOKEN:MARSHALLESE EDUCATION LEVEL OF EDUCATION:NOT FINISHED COLLEGE LEARNING BARRIERS / SPECIAL NEEDS CHANGE FROM LAST VISIT?NO BARRIERS TO LEARNING?NO HEARING IMPAIRED?NO VISION IMPAIRED?YES :CORRECTIVE LENSES COGNITIVELY IMPAIRED?NO READINESS TO LEARN?YES LEARNING PREFERENCES?NO LEARNING CAPABILITIES PRESENT?YES EMOTIONAL BARRIERS?NO SPECIAL DEVICES?YES :CANE, WALKER, OTHER WALKING CANE 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 DIET: REGULAR. EXERCISE: NO REGULAR EXERCISE, SMALL WALKS. MARITAL STATUS: . - PFS REFERRAL NEEDED?NO CLERGY REFERRAL NEEDED?NO PUBLIC HEALTH REFERRAL NEEDED?NO HAS THE PATIENT BEEN EDUCATED REGARDING HIS/HER PLAN OF CARE?YES HAS THE PATIENT BEEN EDUCATED REGARDING PAIN, THE RISK FOR PAIN, THE IMPORTANCE OF EFFECTIVE PAIN MANAGEMENT, AND THE PAIN ASSESSMENT PROCESS?YES ADVANCE DIRECTIVE ADVANCE DIRECTIVE DISCUSSED WITH PATIENT:YES PT. HAS HCP, DAUGHTER DARIO PICKETT [phone], DAUGHTER DEANDRA BECKHAM [phone] REVIEW OF SYSTEMS CONSTITUTIONAL: ANY RECENT FEVER NO . CHILLS NO . WEIGHT CHANGE OF UNKNOWN REASONS NO . GASTROENTEROLOGY: NEW UNEXPLAINABLE CHANGES IN BOWEL CONTROL NO . CONSTIPATION NO . GENITOURINARY: ANY NEW CHANGE IN BLADDER CONTROL? NO . NEUROLOGY: NEW ONSET DIZZINESS OR NEUROLOGICAL CHANGES NOT MENTIONED NO . NEW NUMBNESS OR PAIN PATTERNS NOT MENTIONED AND PERTINENT TO TODAY'S VISIT NO . CARDIOLOGY: NEW CHEST PRESSURE NO . NEW CHEST PAIN NO . RESPIRATORY: UNEXPLAINABLE COUGH NO . NEW SHORTNESS OF BREATH NO . VITAL SIGNS WT 276.6 LBS, HT 63 IN, BMI 48.99 INDEX, BP 144/80 MM HG, HR 83 /MIN, RR 18 /MIN, TEMP 97.3 F, OXYGEN SAT % 99%, NA INITIALS SC 09:06. EXAMINATION GENERAL EXAMINATION: GENERAL AWAKE,ALERT ,PLEASANT . PSYCH AFFECT NORMAL . LUNGS: LUNG DAVID ARE CLEAR TO AUSCULTATION BILATERALLY. GOOD MOVEMENT OF AIR . HEART: S1, S2 IN A REGULAR RATE AND RHYTHM. NO SIGNIFICANT MURMURS, RUBS OR GALLOPS NOTED . LUMBAR:NO REDNESS OR SWELLING IN THE LOW BACK OR BUTTOCK AREA.TENDER OVER RIGHT SIJ REGION.. ASSESSMENTS LUMBAR SPONDYLOSIS - M47.816 (PRIMARY) TREATMENT LUMBAR SPONDYLOSIS NOTES: CONTINUE CONSERVATIVE CARE.MAY USE BENGAY TO RIGHT LOW BACK. PROCEDURE CODES FA211 ESTABILISHED PATIENT [facility]ILITY CHARGE DISPOSITION & COMMUNICATION FOLLOW UP 3 MONTHS (REASON: RIGHT LOW BACK) ELECTRONICALLY SIGNED BY YVETTE HINOJOSA ON 10/07/2020 AT 09:32 AM EST DISCLAIMER : THIS IS A VISIT SUMMARY EXTRACTED FROM THE [employer] CHART. IT IS NOT A COPY OF THE [employer] PROGRESS NOTE. VINCENT
== END ==
LOC: M PAIN 09:15
PROVIDERS: ATTEND Nurse Practitioner Family
DX: M47.816 Spondylosis without myelopathy or radiculopathy, lumbar region (principal); G89.29 Other chronic pain; R73.03 Prediabetes; E55.9 Vitamin D deficiency, unspecified; D50.9 Iron deficiency anemia, unspecified; K21.9 Gastro-esophageal reflux disease without esophagitis; G47.33 Obstructive sleep apnea (adult) (pediatric); Z86.718 Personal history of other venous thrombosis and embolism; Z86.14 Personal history of Methicillin resistant Staphylococcus aureus infection; Z87.891 Personal history of nicotine dependence; Z88.0 Allergy status to penicillin; Z88.1 Allergy status to other antibiotic agents; Z88.4 Allergy status to anesthetic agent; Z88.5 Allergy status to narcotic agent; Z88.8 Allergy status to other drugs, medicaments and biological substances; Z91.09 Other allergy status, other than to drugs and biological substances; E66.01 Morbid (severe) obesity due to excess calories; Z68.42 Body mass index [BMI] 45.0-49.9, adult; Z79.01 Long term (current) use of anticoagulants; Z79.84 Long term (current) use of oral hypoglycemic drugs; Z79.899 Other long term (current) drug therapy

== ENCOUNTER → 2020-10-20 | Outpatient (CLI) | payer MEDICARE, MEDICAID ==
[~2020-10-20] MED LIST changes: +ALBU8.5H INH; +CYCL-707 PO; +D31000TA2 PO; +METF-838 PO; +MULT-40 PO; +NYST10OI TOP; -SUCR1TAB56; +SUCR1TAB56 PO; -XARE20TA; +XARE20TA PO
== END ==
LOC: M LABSMTC 09:35
PROVIDERS: ATTEND Anesthesiology
DX: Z01.812 Encounter for preprocedural laboratory examination (principal); Z20.822 Contact with and (suspected) exposure to COVID-19

== ENCOUNTER 2020-10-25 06:45 | Day surgery (SDC) | payer MEDICARE, MEDICAID ==
[~2020-10-25] VITALS: Ht 161.3 cm; Wt 122.9 kg
[2020-10-25] MEDS ORDERED: NS 1,000 ML IV ONE (07:00)
[2020-10-25] MEDS ORDERED: LIDOCAINE 2% 100MG/5ML SDV (FOR ANES.) As Ordered ONE (08:01)
[2020-10-25] MEDS ORDERED: propofoL 200 MG/20 ML VIAL As Ordered ONE ×2 (08:01→08:31)
--- NOTE | 2020-10-25 08:43 | ROOR ---
Patient Name: Flor Grant Procedure Date: 10/25/2020 8:09 AM Date of : 1955 Age: 65 Room: [facility] Gender: Female Note Status: Finalized Procedure: Colonoscopy Indications: High risk colon cancer surveillance: Personal history of colonic polyps, Last colonoscopy: November 2014, Family history of colon cancer Providers: Joaquín MIRZA MD Referring MD: Harsh Guevara MD Requesting Provider: Medicines: Monitored Anesthesia Care Complications: No immediate complications. Procedure: Pre-Anesthesia Assessment: - The heart rate, respiratory rate, oxygen saturations, blood pressure, adequacy of pulmonary ventilation, and response to care were monitored throughout the procedure. The Colonoscope was introduced through the anus and advanced to the terminal ileum, with identification of the appendiceal orifice and IC valve. The colonoscopy was performed without difficulty. The patient tolerated the procedure well. The quality of the bowel preparation was adequate. Findings: The perianal and digital rectal examinations were normal. Mild sigmoid diverticulosis and small internal hemorrhoids. The exam was otherwise without abnormality. Impression: - Mild sigmoid diverticulosis and small internal hemorrhoids. - The examination was otherwise normal. - No specimens collected. Recommendation: - Repeat colonoscopy in 5 years for screening purposes. - Resume Xarelto (rivaroxaban) at prior dose today. Procedure Code(s): --- Professional --- 24022, Colonoscopy, flexible; diagnostic, including collection of specimen(s) by brushing or washing, when performed (separate procedure) Diagnosis Code(s): --- Professional --- Z80.0, Family history of malignant neoplasm of digestive organs Z86.010, Personal history of colonic polyps CPT copyright 2019 [employer] [place] [employer]. All rights reserved. The codes documented in this report are preliminary and upon forming machine adjuster review may be revised to meet current compliance requirements. Joaquín Mirza MD Joaquín MIRZA MD 10/25/2020 8:43:34 AM Electronically signed by Joaquín MIRZA MD Number of Addenda: 0 Note Initiated On: 10/25/2020 8:09 AM Estimated Blood Loss: Estimated blood loss: none.
[2020-10-25 09:05] VITALS: BP 122/58
== END 2020-10-25 09:15 | disposition home or self-care (01) ==
LOC: M OPP 06:45
PROVIDERS: ATTEND Internal Medicine Gastroenterology
DX: Z12.11 Encounter for screening for malignant neoplasm of colon (principal); Z86.010 Personal history of colon polyps; Z80.0 Family history of malignant neoplasm of digestive organs; K57.30 Diverticulosis of large intestine without perforation or abscess without bleeding; K64.8 Other hemorrhoids; Z88.2 Allergy status to sulfonamides; Z88.8 Allergy status to other drugs, medicaments and biological substances; K21.9 Gastro-esophageal reflux disease without esophagitis; G47.30 Sleep apnea, unspecified; I48.91 Unspecified atrial fibrillation; E11.9 Type 2 diabetes mellitus without complications; Z98.84 Bariatric surgery status; Z79.891 Long term (current) use of opiate analgesic; Z79.899 Other long term (current) drug therapy; Z88.0 Allergy status to penicillin; Z88.1 Allergy status to other antibiotic agents; Z88.5 Allergy status to narcotic agent

== ENCOUNTER → 2020-12-09 | Outpatient (REF) | payer MEDICARE, MEDICAID ==
[2020-12-09 10:30] LABS: BASO # 0.1 10^3/uL (0.0-0.2); EOS # 0.2 10^3/uL (0.0-0.5); EOS % 2.2 % (0.0-3.0); HEMATOCRIT 39.3 % (36.0-47.0); HEMOGLOBIN 11.5 g/dl (12.0-15.5); LYMPH # 1.7 10^3/uL (1.5-5.0); LYMPH % 22.7 % (24.0-44.0); MEAN CORPUSCULAR HEMOGLOBIN 25.9 pg (27.0-33.0); MEAN CORPUSCULAR HGB CONC 29.3 g/dl (32.0-36.5); MEAN CORPUSCULAR VOLUME 88.5 fl (80.0-96.0); MONO # 0.5 10^3/uL (0.0-0.8); MONO % 6.5 % (2.0-8.0); NEUTROPHILS % 67.3 % (36.0-66.0); PLATELET COUNT, AUTOMATED 346 10^3/uL (150-450); RED BLOOD COUNT 4.44 10^6/uL (4.00-5.40); WHITE BLOOD COUNT 7.4 10^3/uL (4.0-10.0)
[2020-12-09 11:04] LABS: CHOLESTEROL RISK RATIO 2.206 (<5); PTH INTACT 88.2 PG/ML (18.5-88.0); TOTAL 25(OH) VITAMIN D 51.6 NG/ML (30.0-100.0)
[2020-12-09 11:06] LABS: MALB URINE SIEMENS 11.7 MG/L; MAU/CREAT RATIO 6.6 MCG/MG (0.0-30.0)
[2020-12-09 11:18] LABS: HEMOGLOBIN A1c 5.8 %
== END ==
LOC: M SFHCPLAZ 08:21
PROVIDERS: ATTEND Family Medicine
DX: D50.9 Iron deficiency anemia, unspecified (principal); D51.9 Vitamin B12 deficiency anemia, unspecified; R73.01 Impaired fasting glucose; E06.3 Autoimmune thyroiditis; Z79.899 Other long term (current) drug therapy

== ENCOUNTER → 2021-01-04 | Outpatient (CLI) | payer MEDICARE, MEDICAID ==
--- NOTE | 2021-01-06 05:27 | ECWPNPC ---
PATIENT NAME: NISHA MUNSON : 1955 GENDER: FEMALE VISIT DATE: 01/04/2021 DISCHARGE DATE: 01/04/21953 VISIT LOCKED DATE TIME: PHYSICIAN: VIOLETA TITUS PHYSICIAN PAGER NO: ACTIVE RESOURCE: VIOLETA TITUS REASON FOR APPOINTMENT 1. 3 MONTH LOW BACK HISTORY OF PRESENT ILLNESS DEPRESSION SCREENING: PHQ-2 (2015 EDITION) LITTLE INTEREST OR PLEASURE IN DOING THINGS?NOT AT ALL FEELING DOWN, DEPRESSED, OR HOPELESS?NOT AT ALL TOTAL SCORE0 GENERAL: HERE FOR F/U OF CHRONIC RIGHT SIDED LOW BACK PAIN.CONTINUES TO BENEFIT FROM COOL RF DONE IN JULY.WALKING ON A REGULAR BASIS.USING LIDODERM PATCH TO RIGHT HIP THAT SHE PURCHASE OTC AND IS VERY HELPFUL. - -. FALL RISK SCREENING: SCREENING : NO FALLS REPORTED IN THE LAST YEAR. PAIN SCREENING: PATIENT HAS A COMPLAINT OF ACUTE OR CHRONIC PAIN :YES LOCATION OF PAIN:LOW BACK INTENSITY OF PAIN (SCALE OF 1 TO 10):0 WHAT DOES YOUR PAIN FEEL LIKE:OTHER NO PAIN DURATION:ALL DAY, ONLY WITH SPECIFIC ACTIVITIES PAIN IS INCREASED BY:PROLONGED STANDING PAIN IS DECREASED BY:SITTING, OTHERS RESTING NURSING NOTE: -. PAIN CENTER INTAKE QUESTIONS: DO YOU HAVE A HISTORY OF MRSA? :NO DO YOU TAKE A BLOOD THINNERS? :YES XARELTO DO YOU HAVE ANY BLEEDING DISORDERS? :NO ANY NEW NUMBNESS OR WEAKNESS IN YOUR LEGS OR ARMS? :NO ANY PACEMAKER,DEFIBRILLATOR, OR DORSAL COLUMN STIMULATOR? :NO LOOP RECODER DO YOU HAVE ANY RASHES OR OPEN SORES? :YES BETWEEN HER LEGS ARE YOU ALLERGIC TO IV DYE? :NO ARE YOU DIABETIC? :NO PRE DIABETIC ANY NEW PROBLEMS WITH YOUR MEDICATIONS? :NO HAVE YOU RECEIVED A VACCINE IN THE PAST 30 DAYS? :NO DO YOU PLAN TO RECEIVE A VACCINE IN THE NEXT 21 DAYS? :NO DO YOU NEED ANY PRESCRIPTION? :NO DO YOU TAKE ANY IMMUNOSUPPRESSIVE MEDICATIONS? :NO IS THERE A CHANCE YOU COULD BE ? :NO ARE YOU BREAST FEEDING? :NO CURRENT MEDICATIONS TAKING VITAMIN B12 1000 MCG SC . SC EVERY 8 WEEKS TAKING FERROUS GLUCONATE 325 MG CAPSULE 1 TABLET ORALLY TWICE DAILY TAKING VITAMIN D 5000 TABLET 1 TABLET ORALLY TID TAKING CALCIUM 600+D HIGH POTENCY 600-400 MG-UNIT TABLET 1 TABLET WITH FOOD ORALLY TWICE A DAY TAKING RECLAST 5 MG/100ML SOLUTION DIRECTED INTRAVENOUS TAKING DICLOFENAC SODIUM 1 % GEL 4 GM TRANSDERMAL FOUR TIMES A DAY TO B KNEES TAKING OXYCODONE HCL 5 MG TABLET 1 TABLET NEEDED ORALLY 3 TIMES A DAY TAKING SUCRALFATE 1 GM TABLET 1 TABLET ON AN EMPTY STOMACH ORALLY AC TID TAKING PANTOPRAZOLE SODIUM 40 MG TABLET DELAYED RELEASE 1 TABLET ORALLY BID TAKING NYSTATIN 104827 UNITS/G TOPICAL OINTMENT . APPLIED TOPICALLY DIRECTED BID X 10 DAYS C FLARES TAKING METFORMIN HCL ER 500 MG TABLET EXTENDED RELEASE 24 HOUR 1 TAB WITH LARGEST MEAL ORALLY DAILY TAKING XARELTO 20 MG TABLET 1 TAB(S) ORAL AT DINNER TIME TAKING CLARITIN 10 MG TABLET 1 TABLET ORALLY ONCE A DAY TAKING TYLENOL 8 HOUR 650 MG TABLET EXTENDED RELEASE 2 TABLETS NEEDED ORALLY EVERY MORNING TAKING FLEXERIL 10 MG 30 10 MG TABLETS ONE TABLET ORALLY EVERY 8 HOURS PRN PAIN TAKING ACCU-CHEK MAMI 1 DEVICE DIRECTED E11.9 BID TAKING BLOOD GLUCOSE TEST 1 STRIP DIRECTED E11.9 BID TAKING SUCRALFATE 1 GM TABLET TAKE ONE TABLET BY MOUTH THREE TIMES DAILY TAKING NYSTATIN - POWDER DIRECTED ORALLY TWICE A DAY IN THE ABDOMINAL FOLDS TAKING ACCU-CHEK SOFT TOUCH LANCETS 1 1 LANCET E11.9 BID TAKING COMPRESSION STOCKINGS 30-40 MMHG KNEE HIGH I87.2 DAILY TAKING PROAIR HFA 108 (90 BASE) MCG/ACT AEROSOL SOLUTION 2 PUFFS NEEDED INHALATION QID PRN MEDICATION LIST REVIEWED AND RECONCILED WITH THE PATIENT PAST MEDICAL HISTORY 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 12/2008-SETTER HYPERTENSION, ESSENTIAL ALLERGIC RHINITIS H/O IMMUNOTHERAPY X >10Y-STOPPED 2 INADEQUATE RESPONSE NONALCOHOLIC FATTY LIVER DISEASE C MILD CHRONIC ELEVATED ALP OBESITY, MORBID STATUS POST R-Y GASTRIC BYPASS 06/2006, 12/29/15-MARYJANE VITAMIN D DEFICIENCY ANEMIA, IRON/FE DEFICIENCY HISTORY OF RIGHT LOWER EXTREMITY DVT X2 IMPAIRED FASTING GLUCOSE HISTORY OF NICOTINE ADDICTION-SMOKED 7 CIGS QD X 10Y, QUIT AT 28 YO-04/2012 FEV1 2.3L (99%)/RATIO 108% GERD-11/2014 NORMAL EGD-REINDL TUBULAR ADENOMA BY 11/2014 COLONOSCOPY-REINDL//10/25/20 COLON WNL-R ATRIAL FIBRILLATION, [id number] POD 2 TKR 05/2015-SP PULMONARY VEIN ISOLATION, ILR [id number]-94/9/19 LISA, MODERATE-07/2017 HST JLUIS 17 C SAO2 TO 88% HO MRSA ABSCESS- HAS BEEN TREATED AND TESTED NEGATIVE LUMBAR DJD-11/2017 MRI L5/S1 BULGE EXTENDING INTO B NF DISPLACING R S1 ROOT, MILD L4/5 CCS R T5 ZOSTER RXED C VALCYC/PRED 05/2018 ALLERGIES PENICILLIN (FOR ALLERGIES USE ONLY): RASH - ALLERGY ERYTHROMYCIN: RASH - ALLERGY DOXYCYCLINE HYCLATE: RASH - ALLERGY TALWIN: RASH HIVES - ALLERGY NOVACAINE (PT NOTES SHE WAS OK WITH RECENT LIDOCAI: SWELLING - ALLERGY BACTRIM: RASH - ALLERGY TETRACYCLINE HCL: HIVES - ALLERGY VICODIN: ITCH - ALLERGY SINGULAIR: GERD - SIDE EFFECTS CODEINE SULFATE: UNCONSCIOUSNESS - ALLERGY GABAPENTIN: IRRITABILITY/AGGRESSIVENESS - SIDE EFFECTS LYRICA: SHAKING /FORGETFULNESS AMITRIPTYLINE HCL: MEMORARY ISSUES - SIDE EFFECTS ADHESIVE: RED,IRRITATION IF ON LONG TIME - SIDE EFFECTS SOCIAL HISTORY GENERAL: TOBACCO USE ARE YOU A:FORMER SMOKER LONG TIMES HOW LONG HAS IT BEEN SINCE YOU LAST SMOKED?> 10 YEARS LATEX QUESTIONNAIRE LATEX ALLERGY : HAVE YOU EVER DEVELOPED ANY TYPE OF REACTION AFTER HANDLING LATEX PRODUCTS SUCH RUBBER GLOVES, CONDOMS, DIAPHRAGMS, BALLOONS, SOCKS, OR UNDERWEAR?NO ADHESIVE SENSITIVITY LATEX ALLERGY : HAVE YOU EVER DEVELOPED ANY TYPE OF REACTION DURING OR AFTER DENTAL APPOINTMENT, VAGINAL/RECTAL EXAMINATION, SURGICAL PROCEDURE, OR ANY OTHER EXPOSURE?NO LATEX RISK : HAVE YOU EVER HAD ANY DIFFICULTY BREATHING OR HIVES AFTER EATING OR HANDLING ANY FRUITS, OR VEGETABLES; SUCH KIWI, BANANAS, STONE FRUITS, OR CHESTNUTSNO LATEX RISK : DO YOU HAVE A PREVIOUS PERSONAL HISTORY OF MORE THAN NINE SURGERIES, SPINA BIFIDA, OR REPEATED CATHERIZATIONS? YES - PLEASE INDICATE : > 9 SURGERIES LATEX RISK : ARE YOU FREQUENTLY EXPOSED TO LATEX PRODUCTS IN YOUR OCCUPATION?NO DATE ASKED : 01/04/2021 ALCOHOL USE: NO. BMI CARE GOAL FOLLOW-UP ABOVE NORMAL BMI FOLLOW-UPLIFESTYLE EDUCATION REGARDING DIET ALCOHOL SCREENING DID YOU HAVE A DRINK CONTAINING ALCOHOL IN THE PAST YEAR?NO POINTS0 INTERPRETATIONNEGATIVE RECREATIONAL DRUG USE DRUG USE?NO CAFFEINE CAFFEINE USE?NO SEXUAL HX HAD SEX IN THE LAST 12 MONTHS (VAGINAL, ORAL, OR ANAL)?NO LMP:HYSTER HAVE YOU EVER HAD AN STD?NO HIV / HEP-C SCREENING HIV TEST OFFERED TO PATIENT:YES DATE OFFERED:11/05/2017 TEST ACCEPTED:NO HEP-C TEST OFFERED TO PATIENT:YES DATE OFFERED:11/22/2016 REASON:PATIENT DECLINED TEST ACCEPTED:NO REASON:PATIENT DECLINED BROCHURE PROVIDED TO PATIENTYES JEHOVAH'S WITNESS [id number] CHURCH LANGUAGE LANGUAGES SPOKEN:NEPALI EDUCATION LEVEL OF EDUCATION:NOT FINISHED COLLEGE LEARNING BARRIERS / SPECIAL NEEDS CHANGE FROM LAST VISIT?NO BARRIERS TO LEARNING?NO HEARING IMPAIRED?NO VISION IMPAIRED?YES :CORRECTIVE LENSES COGNITIVELY IMPAIRED?NO READINESS TO LEARN?YES LEARNING PREFERENCES?NO LEARNING CAPABILITIES PRESENT?YES EMOTIONAL BARRIERS?NO SPECIAL DEVICES?YES :CANE, WALKER, 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 DIET: REGULAR. EXERCISE: NO REGULAR EXERCISE, SMALL WALKS. MARITAL STATUS: . - PFS REFERRAL NEEDED?NO CLERGY REFERRAL NEEDED?NO PUBLIC HEALTH REFERRAL NEEDED?NO HAS THE PATIENT BEEN EDUCATED REGARDING HIS/HER PLAN OF CARE?YES HAS THE PATIENT BEEN EDUCATED REGARDING PAIN, THE RISK FOR PAIN, THE IMPORTANCE OF EFFECTIVE PAIN MANAGEMENT, AND THE PAIN ASSESSMENT PROCESS?YES ADVANCE DIRECTIVE ADVANCE DIRECTIVE DISCUSSED WITH PATIENT:YES PT. HAS HCP, DAUGHTER DARIO PICKETT [phone], DAUGHTER DEANDRA BECKHAM [phone] REVIEW OF SYSTEMS CONSTITUTIONAL: ANY RECENT FEVER NO . CHILLS NO . WEIGHT CHANGE OF UNKNOWN REASONS NO . GASTROENTEROLOGY: NEW UNEXPLAINABLE CHANGES IN BOWEL CONTROL NO . CONSTIPATION NO . GENITOURINARY: ANY NEW CHANGE IN BLADDER CONTROL? NO . NEUROLOGY: NEW ONSET DIZZINESS OR NEUROLOGICAL CHANGES NOT MENTIONED NO . NEW NUMBNESS OR PAIN PATTERNS NOT MENTIONED AND PERTINENT TO TODAY'S VISIT NO . CARDIOLOGY: NEW CHEST PRESSURE NO . PATIENT DENIES NO . RESPIRATORY: UNEXPLAINABLE COUGH NO . NEW SHORTNESS OF BREATH NO . VITAL SIGNS WT 262.8 LBS, HT 63 IN, BMI 46.55 INDEX, BP 159/71 MM HG, HR 78 /MIN, RR 18 /MIN, TEMP 98.3 F, OXYGEN SAT % 95%, SAFE IN ENV? (Y/N) YES, NA INITIALS SC 09"40T.KENYA BELLA. EXAMINATION GENERAL EXAMINATION: GENERALAWAKE,ALERT ,PLEASANT . PSYCHAFFECT NORMAL . LUNGS:LUNG DAVID ARE CLEAR TO AUSCULTATION BILATERALLY. GOOD MOVEMENT OF AIR . HEART:S1, S2 IN A REGULAR RATE AND RHYTHM. NO SIGNIFICANT MURMURS, RUBS OR GALLOPS NOTED . ASSESSMENTS LUMBAR SPONDYLOSIS - M47.816 (PRIMARY) TREATMENT LUMBAR SPONDYLOSIS NOTES: CONTINUE HOME EXCERSISE/WALKING PROGRAM. PROCEDURE CODES FA211 ESTABILISHED PATIENT [facility] FACILITY CHARGE DISPOSITION & COMMUNICATION FOLLOW UP 6 MONTHS (REASON: LOW BACK PAIN/RESPONDS WELL TO RF) ELECTRONICALLY SIGNED BY YVETTE HINOJOSA ON 01/05/2021 AT 02:20 PM EDT DISCLAIMER : THIS IS A VISIT SUMMARY [facility]TRACTED FROM THE [facility]. IT IS NOT A COPY OF THE [employer] PROGRESS NOTE. VINCENT
== END ==
LOC: M PAIN 09:30
PROVIDERS: ATTEND Nurse Practitioner Family
DX: M47.816 Spondylosis without myelopathy or radiculopathy, lumbar region (principal); G89.29 Other chronic pain; R73.03 Prediabetes; E55.9 Vitamin D deficiency, unspecified; D50.9 Iron deficiency anemia, unspecified; K21.9 Gastro-esophageal reflux disease without esophagitis; G47.33 Obstructive sleep apnea (adult) (pediatric); Z86.14 Personal history of Methicillin resistant Staphylococcus aureus infection; Z87.891 Personal history of nicotine dependence; Z88.0 Allergy status to penicillin; Z88.1 Allergy status to other antibiotic agents; Z88.4 Allergy status to anesthetic agent; Z88.5 Allergy status to narcotic agent; Z88.8 Allergy status to other drugs, medicaments and biological substances; Z91.09 Other allergy status, other than to drugs and biological substances; E66.01 Morbid (severe) obesity due to excess calories; Z68.42 Body mass index [BMI] 45.0-49.9, adult; Z79.01 Long term (current) use of anticoagulants; Z79.84 Long term (current) use of oral hypoglycemic drugs; Z79.899 Other long term (current) drug therapy

== ENCOUNTER → 2021-04-22 | Outpatient (CLI) | payer MEDICARE, MEDICAID ==
[~2021-04-22] MED LIST changes: -PREV15CA18 PO; +PREV15CA24 PO
--- NOTE | 2021-04-24 08:36 | REP ---
INDICATION: UNSP INJURY ROTATOR CUFF LT SHOULDER. COMPARISON: Radiographs 04/10/2021. TECHNIQUE: Coronal oblique T1, T2 fat sat, sagittal oblique T2 fat sat, axial T2 fat sat, gradient echo. FINDINGS: Rotator cuff: There is an extensive full-thickness tear of the supraspinatus tendon. Acromioclavicular joint: There are moderate hypertrophic degenerative changes of the acromioclavicular joint Acromion: Type 2 Biceps Tendon: In bicipital groove, no tenosynovitis. Hill Sach's deformity: None. Deltoid muscle: No abnormal signal. Biceps labral complex: There is fraying of the biceps labral complex. Labrum: There is mild diffuse fraying of the labrum. Cartilage: Mild chondromalacia at the glenohumeral joint. Bone marrow: No abnormal signal. Joint fluid: There is mild fluid in the subacromial/subdeltoid bursae. IMPRESSION: Extensive full-thickness tear supraspinatus tendon. Moderate hypertrophic degenerative changes acromioclavicular joint, with a type 2 acromion. There is fraying of the biceps labral complex, as well as mild diffuse fraying of the labrum. <Electronically signed by Samson Pinzon > 04/24/21 0870
== END ==
LOC: M RAD 09:16
PROVIDERS: ATTEND Orthopaedic Surgery Sports Medicine
DX: S46.002A Unspecified injury of muscle(s) and tendon(s) of the rotator cuff of left shoulder, initial encounter (principal); X58.XXXA Exposure to other specified factors, initial encounter; Y92.89 Other specified places as the place of occurrence of the external cause; Y93.9 Activity, unspecified; Y99.9 Unspecified external cause status

== ENCOUNTER 2021-04-24 09:05 | Outpatient (RCR) | payer MEDICARE, MEDICAID | END 2021-04-25 | LOC: M PT 09:05 | PROVIDERS: ATTEND Orthopaedic Surgery Sports Medicine | DX: S46.002A Unspecified injury of muscle(s) and tendon(s) of the rotator cuff of left shoulder, initial encounter (principal) ==

== ENCOUNTER 2021-05-23 11:31 | Outpatient (RCR) | payer MEDICARE, MEDICAID | END 2021-05-25 | LOC: M PT 11:31 | PROVIDERS: ATTEND Orthopaedic Surgery Sports Medicine | DX: S46.002A Unspecified injury of muscle(s) and tendon(s) of the rotator cuff of left shoulder, initial encounter (principal) ==

== ENCOUNTER → 2021-05-24 | Outpatient (CLI) | payer MEDICARE, MEDICAID | LOC: M LABSMTC 11:22 | PROVIDERS: ATTEND Pediatrics | DX: Z20.822 Contact with and (suspected) exposure to COVID-19 (principal) | CPT/HCPCS: C9803; U0003 ==

== ENCOUNTER → 2021-06-02 | Outpatient (CLI) | payer MEDICARE, MEDICAID | LOC: M PAIN 09:30 | PROVIDERS: ATTEND Anesthesiology | DX: M47.816 Spondylosis without myelopathy or radiculopathy, lumbar region (principal); G89.29 Other chronic pain; E55.9 Vitamin D deficiency, unspecified; D50.9 Iron deficiency anemia, unspecified; K21.9 Gastro-esophageal reflux disease without esophagitis; G47.33 Obstructive sleep apnea (adult) (pediatric); Z86.14 Personal history of Methicillin resistant Staphylococcus aureus infection; Z87.891 Personal history of nicotine dependence; Z88.0 Allergy status to penicillin; Z88.1 Allergy status to other antibiotic agents; Z88.4 Allergy status to anesthetic agent; Z88.5 Allergy status to narcotic agent; Z88.8 Allergy status to other drugs, medicaments and biological substances; Z91.09 Other allergy status, other than to drugs and biological substances; E66.01 Morbid (severe) obesity due to excess calories; Z68.41 Body mass index [BMI] 40.0-44.9, adult; Z79.01 Long term (current) use of anticoagulants; Z79.899 Other long term (current) drug therapy ==

== ENCOUNTER → 2021-06-08 | Outpatient (CLI) | payer MEDICARE, MEDICAID ==
[2021-06-08 10:43] LABS: BASO # 0.1 10^3/uL (0.0-0.2); EOS # 0.2 10^3/uL (0.0-0.5); EOS % 2.3 % (0.0-3.0); HEMATOCRIT 37.4 % (36.0-47.0); HEMOGLOBIN 11.1 g/dl (12.0-15.5); LYMPH % 25.5 % (24.0-44.0); MEAN CORPUSCULAR HEMOGLOBIN 26.3 pg (27.0-33.0); MEAN CORPUSCULAR HGB CONC 29.7 g/dl (32.0-36.5); MEAN CORPUSCULAR VOLUME 88.6 fl (80.0-96.0); MONO # 0.4 10^3/uL (0.0-0.8); MONO % 5.7 % (2.0-8.0); NEUTROPHILS % 64.9 % (36.0-66.0); PLATELET COUNT, AUTOMATED 358 10^3/uL (150-450); RED BLOOD COUNT 4.22 10^6/uL (4.00-5.40); WHITE BLOOD COUNT 7.7 10^3/uL (4.0-10.0)
[2021-06-08 10:57] LABS: HEMOGLOBIN A1c 5.7 %
[2021-06-08 11:19] LABS: ALBUMIN 3.2 GM/DL (3.2-5.2); ALT/SGPT 21 U/L (12-78); BILIRUBIN,TOTAL 0.4 MG/DL (0.2-1.0); BLOOD UREA NITROGEN 13 MG/DL (7-18); CALCIUM LEVEL 8.3 MG/DL (8.8-10.2); CARBON DIOXIDE LEVEL 29 MEQ/L (21-32); CHLORIDE LEVEL 110 MEQ/L (98-107); CREATININE FOR GFR 0.75 MG/DL (0.55-1.30); FERRITIN 12 NG/ML (8-252); FREE T4 0.99 NG/DL (0.76-1.46); GLOMERULAR FILTRATION RATE > 60.0 (>45); GLUCOSE, FASTING 97 MG/DL (70-100); POTASSIUM SERUM 4.3 MEQ/L (3.5-5.1); SODIUM LEVEL 142 MEQ/L (136-145); TOTAL PROTEIN 6.9 GM/DL (6.4-8.2)
[2021-06-09 12:12] LABS: H PYLORI SERUM QUANT IgG ABY 0.43 (0.00-0.79); INSULIN LEVEL 9.2 uIU/mL (2.6-24.9); TISSUE TRANSGLUTAMINASE IgA <2 U/mL (0-3)
== END ==
LOC: M PLALAB 08:00
PROVIDERS: ATTEND Family Medicine
DX: D50.9 Iron deficiency anemia, unspecified (principal); E06.3 Autoimmune thyroiditis; R73.01 Impaired fasting glucose

== ENCOUNTER 2021-06-15 09:12 | Outpatient (RCR) | payer MEDICARE, MEDICAID | END 2021-06-25 | LOC: M PT 09:12 | PROVIDERS: ATTEND Orthopaedic Surgery Sports Medicine | DX: S46.002A Unspecified injury of muscle(s) and tendon(s) of the rotator cuff of left shoulder, initial encounter (principal); X58.XXXA Exposure to other specified factors, initial encounter; Y92.9 Unspecified place or not applicable; Z47.89 Encounter for other orthopedic aftercare ==

== ENCOUNTER 2021-06-27 12:01 | Emergency (ER) | payer MEDICARE, MEDICAID ==
[~2021-06-27] VITALS: Ht 162.6 cm; Wt 112.3 kg
--- OUTSIDE RECORDS SUMMARY | 2021-06-27 12:09 | CCD | Continuity of Care Document ---
Author Author Flor PALM MD Organization Unknown Address [address] , [facility] [address] [place] [address] Phone [phone] Care Team Providers Care Bench Worker Hollow Handle Name Role Phone Harsh Guevara M.D. AUTM [phone] Central Scheduling AUTM [phone] Diana Aguayo M.D. AUTM [phone] AUTM Unavailable Problems Active Problems Provider Date Obstructive sleep apnea syndrome RAFITA Kumar Onset: 12/15/2019 Social History Type Date Description Comments Sex Unknown ETOH Use Rarely Tobacco Use Start: Unknown Non Smoker Recreational Drug Use Denies Drug Use Smoking Status Reviewed: 04/14/21 Non Smoker Allergies and adverse reactions Active Allergies Criticality Reaction | Severity Comments Date Penicillins Unable to assess criticality 06/30/2010 Erythromycin Unable to assess criticality 06/30/2010 Codeine Unable to assess criticality Difficulty breathing | Se ricky 06/30/2010 Bactrim Unable to assess criticality Hives 06/30/2010 Novocain Unable to assess criticality 06/30/2010 Doxycycline Unable to assess criticality 06/30/2010 Talwin Nx Unable to assess criticality 07/03/2010 Tetracycline Unable to assess criticality 07/03/2010 Vicodin Unable to assess criticality Hives 12/15/2019 Lyrica Unable to assess criticality confusion 12/15/2019 Gabapentin Unable to assess criticality 01/12/2020 Amitriptyline Unable to assess criticality 08/17/2020 Medications Active Medications SIG Qnty Indications Ordering Provide r Date CPAP Device 12cm LC-W RAFITA Kumar 12/14/[address] 1 by mouth bid Unknown Vitamin D-3 125mcg (5000 Ut) Table ts 3 daily Unknown Multivitamins Capsules 1 tab by mouth every day Unknown Vitamin B-Complex 100 100 Injectio n 1 injection every 2 months Unknown 000 Xarelto 20mg Tablets 1 tab by mouth every day Unknown Sucralfate 1gm Tablets 1 tab by mouth three times a day before meals Unknown 0 Calcium 600 + D [id number] Tab lets 2 Daily Unknown Iron 325(65Fe) mg Tablets take 1 tablet by mouth twice daily. Unknown Vitamin C 500mg Tablets twice a day Unknown Oxycodone-Acetaminophen 5-325mg Ta blets tid prn Unknown Albuterol Sulfate HFA 108(90Base) mcg/Act Aerosol Inhale 2 Puffs By Mouth Four Times Daily as Needed Unknown Cyclobenzaprine HCL 10mg Tablets Take 1 Tablet By Mouth Twice Daily as Needed Unknown Medications Administered in Office Medication SIG Qnty Indications Ordering Provider Date Covid-19 vaccine, Unspecified Inj ection Unknown 11/25/2020 Covid-19 vaccine, Unspecified Inj ection Unknown 10/28/2020 Immunizations Description No Information Available Vital Signs Date Vital Result Comment 05/05/2021 8:40am Body Temperature 98.0 F 01/17/2021 8:20am BP Systolic 130 mmHg BP Diastolic 82 mmHg Heart Rate 86 /min O2 % BldC Oximetry 97 % Body Temperature 97.8 F Height 63 inches 5'3" Weight 262.00 lb BMI (Body Mass Index) 46.4 kg/m2 [place] Body Weight 115 lb Weight 118.843 kg BSA (Body Surface Area) 2.17 m2 Results Description No Information Available Procedures Date Code Description Status 05/05/2021 33406 Office/Outpatient Established Mo d MDM 30-39 Min Completed 05/05/202163563 Inject/Drain Arthrocentesis Suzanne r Joint/Bursa/Ganglion Cyst Completed 04/14/2021 86620 Office/Outpatient New Low MDM 30 -44 Minutes Completed 01/17/2021 87079 Office/Outpatient Established Lo w MDM 20-29 Min Completed Medical Devices Description No Information Available Encounters Type Date Location Provider Dx Diagnosis Office Visit 05/05/2021 9:00a [facility] Orthoped[facility] Adriano Palm MD S46.012A Strain of musc/tend the rotator cuff of left shoulder, init M19.012 Primary osteoarthritis, left shoulder M75.42 Impingement syndrome of left shoulder Office Visit 04/14/2021 11:00a [facility] Adriano Palm MD M75.42 Impingement syndrome of left shoulder Office Visit 01/17/2021 8:30a [facility] Pulmonary/Thoracic RAFITA Schneider G47.33 Obstructive sleep apnea (adult) (pediatr ic) Assessments Date Code Description Provider 05/05/2021 S46.012A Strain of muscle(s) and tendon(s) of the rotator cuff of left shoulder, initial encounter Adriano Palm MD 05/05/2021 M19.012 Primary osteoarthritis, left ginette eklby Palm MD 05/05/2021 M75.42 Impingement syndrome of left ginette kelby Palm MD 04/14/2021 M75.42 Impingement syndrome of left ginette kelby Palm MD 01/17/2021 G47.33 Obstructive sleep apnea (adult) (pediatric) RAFITA Kumar Plan of Treatment Future Appointment(s):* 06/16/2021 8:45 am - Adriano Palm MD at [facility] * 01/18/2022 8:30 am - RAIFTA Kumar at [facility] Pulmonary/Thoracic 05/05/2021 - Adriano Palm MD* S46.012A Strain of muscle(s) and tendon(s) of the rotator cuff of left shoulder, initial encounter * M19.012 Primary osteoarthritis, left shoulder * M75.42 Impingement syndrome of left shoulder Functional Status Description No Information Available Mental Status Description No Information Available Referrals Description No Information Available
--- OUTSIDE RECORDS SUMMARY | 2021-06-27 12:09 | CCD | Continuity of Care Document ---
Author Author Flor PALM MD Organization Unknown Address [address] , [facility] [address] [place] [address] Phone [phone] Care Team Providers Care Rock Star Name Role Phone Harsh Guevara M.D. AUTM [phone] Central Scheduling AUTM [phone] Diana Aguayo M.D. AUTM [phone] AUTM Unavailable Problems Active Problems Provider Date Obstructive sleep apnea syndrome RAFITA Kumar Onset: 12/15/2019 Social History Type Date Description Comments Sex Unknown ETOH Use Rarely Tobacco Use Start: Unknown Non Smoker Recreational Drug Use Denies Drug Use Smoking Status Reviewed: 04/14/21 Non Smoker Allergies, Adverse Reactions, Alerts Active Allergies Criticality Reaction | Severity Comments [...] meals Unknown 0 Calcium 600 + D [id number] Tab lets 2 Daily Unknown Iron 325(65Fe) [...] lb BMI (Body Mass Index) 46.4 kg/m2 [place] Body Weight 115 lb Weight 118.843 kg BSA (Body Surface Area) 2.17 m2 Results Description No Information Available Procedures Date Code Description Status 05/05/2021 46365 Office/Outpatient Established Mo d MDM 30-39 Min Completed 05/05/2021 Inject/Drain Arthrocentesis Suzanne r Joint/Bursa/Ganglion Cyst Completed 04/14/2021 69870 Office/Outpatient New Moderate M DM 45-59 Minutes Completed 01/17/2021 79685 Office/Outpatient Established Lo w MDM 20-29 Min Completed Medical Devices Description No Information Available Encounters Type Date Location Provider Dx Diagnosis Office Visit 05/05/2021 9:00a [facility] Orthoped[facility] Adriano Palm MD S46.012A Strain of musc/tend the rotator cuff of left shoulder, init M19.012 Primary osteoarthritis, left shoulder M75.42 Impingement syndrome of left shoulder Office Visit 01/17/2021 8:30a [facility] Pulmonary/Thoracic RAFITA Schneider G47.33 Obstructive sleep apnea (adult) (pediatr ic) Assessments Date Code Description Provider 05/05/2021 S46.012A Strain of muscle(s) and tendon(s) of the rotator cuff of left shoulder, initial encounter Adriano Palm MD 05/05/2021 M19.012 Primary osteoarthritis, left ginette haileyder Adriano Palm MD 05/05/2021 M75.42 Impingement syndrome of left ginette kelby Palm MD 04/14/2021 M75.42 Impingement syndrome of left ginette kelby Palm MD 01/17/2021 G47.33 Obstructive sleep apnea (adult) (pediatric) RAFITA Kumar Plan of Treatment Future Appointment(s):* 06/16/2021 8:45 am - Adriano Palm MD at [facility] Orthoped[facility] * 01/18/2022 8:30 am - RAFITA Kumar at [facility] Pulmonary/Thoracic 05/05/2021 - Adriano Palm MD* S46.012A Strain of muscle(s) and tendon(s) of the rotator cuff of left shoulder, initial encounter * M19.012 Primary osteoarthritis, left shoulder * M75.42 Impingement syndrome of left shoulder Functional Status Description No Information Available Mental Status Description No Information Available Referrals Description No Information Available
--- OUTSIDE RECORDS SUMMARY | 2021-06-27 12:09 | CCD ---
Author Author [facility] Organization 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 Name Role Phone Harsh Guevara Unavailable PROBLEMS Type Condition ICD9-CM Code TMQ07-BV Code Onset Dates Condition S tatus W/U Status Risk SNOMED Code Notes Problem Other secondary osteoarthritis of left hip M16.7 Active confirmed 028010679 Problem Osteoarthritis of left hip, unspecified osteoarthritis typ e M16.12 Active confirmed [id number] Problem Lumbosacral radiculopathy due to degenerative kevan int disease of spine M47.27 Active confirmed 9892937 Problem Lumbar radiculopathy M54.16 Active confirmed 794306907 Problem Lumbar spondylosis M47.816 Active confirmed 398150043 Problem Lumbar disc displacement without myelopathy M51.26 Active confirmed 33688935 Problem Vitamin D deficiency, unspecified E55.9 Active con firmed 13296559 Problem Lumbar facet arthropathy M46.96 Active confirmed 980369113 Problem Hypertension, essential I10 Active confirmed 00877027 Problem Intertriginous candidiasis B37.2 Active confirmed 09256956 Problem Intervertebral disc disorders with radiculopathy , lumbar region M51.16 Active confirmed 179252495594295 Problem Non morbid obesity due to excess calories E66.09 Active confirmed 993955225 Problem Chronic depression F32.9 Active confirmed 1 19225929 Problem Hypothyroidism, acquired, 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 Act kassie confirmed 008181240 Problem Neuropathy G62.9 Active confirmed 305028942 Problem Dyspepsia R10.13 Active confirmed 603590515 Problem Lumbosacral spinal stenosis M48.07 Active confirmed 658103579 Problem GERD (gastroesophageal reflux disease) K21.9 A ctive confirmed 139066560 Problem Intervertebral disc disorder with radiculopathy of lumbosacral region M51.17 Active confirmed 32587870 Problem LISA (obstructive sleep apnea) G47.33 Active confirm ed 18381734 Problem Edema of lower extremity due to peripheral venous insu fficiency I87.2 Active confirmed 937210943 Problem IFG (impaired fasting glucose) R73.01 Active confir med 777504081 Problem Spinal stenosis of lumbar re gion, unspecified whether neurogenic claudication present M48.061 Active confirmed 77455811 Problem Atrial fibrillation I48.91 Active confirmed 76547052 Problem Lumbar disc disorder with myelopathy M51.06 Act kassie confirmed 613265497 Problem Gastric bypass status for obesity Z98.84 Active confirmed 553342889 Problem Lumbar disc disorder M51.9 Active confirmed 355313032 Problem Asthma, mild intermittent J45.20 Active confirmed 422301933 Problem Allergic rhinitis due to pollen, unspecified seasonality J30.1 Active confirmed 07973483 Problem Essential hypertension I10 Active confirmed 71769764 Problem Intervertebral disc disorders with radiculopathy , lumbosacral region M51.17 Active confirmed 83316295870482914 Problem Allergic rhinitis J30.9 Active confirmed 61 358422 Problem OAB (overactive bladder) N32.81 Active confirmed 288370163 Problem Iron deficiency anemia, unspecified D50.9 Acti ve confirmed 17879253 Problem Lumbar Facet arthropathy M47.816 Active confirmed 163634468 Problem Sacroiliitis, not elsewhere classified M46.1 A ctive confirmed 22916851 Problem Vitamin B12 deficiency anemia, unspecified D51.9 Active confirmed 56314257 Problem Osteopenia M85.80 Active confirmed 354975883 Problem Primary osteoarthritis of both knees M17.0 Act kassie confirmed 722343347 Problem Hx of colonic polyp Z86.010 Active confirmed 592531443 Problem Spondylosis without myelopathy or radiculopathy, lumbosacral region M47.817 Active confirmed 48624325 Problem Spondylosis without myelopathy or radiculopathy, lumbar region M47.816 Active confirmed 768244898 Problem Breast cancer screening Z12.39 Active confirmed 865399539 Problem Other chronic pain G89.29 Active confirmed 8 0126760 Problem FH: colon cancer Z80.0 Active confirmed 312 780665 ALLERGIES Allergen (clinical drug ingredient) Drug/Non Drug Allergy do cumented on EMR Reaction Allergy Type Onset Date Status amitriptyline Amitriptyline HCl(NDC Code:[address]-91) MEMORA RY ISSUES Drug Allergy Active Singulair GERD Drug Allergy Active Talwin rash hives Drug Allergy Active Novacaine (pt notes she was ok with recent Lidocai swe lling Non Drug Allergy Active Vicodin itch Drug Allergy Active doxycycline Doxycycline Hyclate(NDC Code:[address]-71) rash Dr gonzalez Allergy Active tetracycline Tetracycline HCl(NDC Code:[address]-25) Hives Drug Allergy Active Adhesive red,irritation if on long time Drug Allergy Active pregabalin Lyrica(NDC Code:[address]-10) shaking /forgetfulness Drug Allergy Active Penicillin (For Allergies Use Only) rash Drug Allerg y Active sulfamethoxazole / trimethoprim Bactrim(NDC Code:[address]-55) Rash Drug Allergy Active codeine Codeine Sulfate(NDC Code:[address]-60) unconsciousness Dr gonzalez Allergy Active gabapentin Gabapentin(NDC Code:[address]-90) irritability/ aggressiveness Drug Allergy Active erythromycin Erythromycin(NDC Code:[address]-51) rash Drug All ergy Active ENCOUNTERS from 1955 to 2021-06-15 Encounter Location Date Provider Diagnosis [address] [phone] [place] [address] 14 May, 2021 Harsh Guevara Atrial fibrillation I48.91 ; Allergic rhinitis J30.9 ; Iron deficiency anemia, unspecified D50.9 ; Vitamin B12 deficiency anemia, unspecified D51.9 ; Annual physical exam Z00.00 ; Encounter for immunization Z23 ; IFG (impaired fasting glucose) R73.01 ; FH: colon cancer Z80.0 ; Osteopenia M85.80 ; Vitamin D deficiency, unspecified E55.9 ; Hypertension, essential I10 ; Hx of colonic polyp Z86.010 ; Lumbar spondylosis M47.816 ; Primary osteoarthritis of both knees M17.0 ; Impingement syndrome of left shoulder M75.42 ; OAB (overactive bladder) N32.81 ; LISA (obstructive sleep apnea) G47.33 ; Chronic depression F32.9 ; Hypothyroidism, acquired, 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 ; Dyspepsia R10.13 ; Gastric bypass status for obesity Z98.84 ; Non morbid obesity due to excess calories E66.09 ; Asthma, mild intermittent J45.20 ; GERD (gastroesophageal reflux disease) K21.9 ; Breast cancer screening Z12.39 and Intertriginous candidiasis B37.2 IMMUNIZATIONS Vaccine Route Administration Date Status Vitamin B-12 1000mcg/1mL Cyanocobalamin IM Intramuscular November 242017 Administered Vitamin B-12 1000mcg/1mL Cyanocobalamin IM Intramuscular February Administered Vitamin B-12 1000mcg/1mL Cyanocobalamin IM Intramuscular January Administered Influenza 18 yrs & older Flublok IM Intramuscular Jun 08, 2021 Administered Vitamin B-12 1000mcg/1mL Cyanocobalamin SC Subcutaneous Apr 03, 2018 Administered Vitamin B-12 1000mcg/1mL Cyanocobalamin IM Intramuscular Jun 03, 2018 Administered Vitamin B-12 1000mcg/1mL Cyanocobalamin IM Intramuscular Apr 05, 2017 Administered Influenza 18 yrs & older Flublok IM Intramuscular Jun 03, 2018 Administered Vitamin B-12 1000mcg/1mL Cyanocobalamin IM Intramuscular Jun 07, 2017 Administered Zoster 50mcg/0.5mL Shingrix IM Intramuscular October 27, 2019 Adm inistered Vitamin B-12 1000mcg/1mL Cyanocobalamin IM Intramuscular Aug 07, 2017 Administered Influenza 18 yrs & older Flublok IM Intramuscular Jul 20, 2020 Administered Vitamin B-12 1000mcg/1mL Cyanocobalamin IM Intramuscular Oct 08, 2017 Administered Vitamin B-12 1000mcg/1mL Cyanocobalamin IM Intramuscular October 252020 Administered Influenza 6mo & up Fluzone IM Intramuscular Jun 28, 2010 Admi nistered Vitamin B-12 1000mcg/1mL Cyanocobalamin IM Intramuscular Sep 30, 2018 Administered Vitamin B-12 1000mcg/1mL Cyanocobalamin IM Intramuscular Jul 28, 2018 Administered Vitamin B-12 1000mcg/1mL Cyanocobalamin SC Subcutaneous May 30, 2015 Administered Vitamin B-12 1000mcg/1mL Cyanocobalamin IM Intramuscular Apr Administered TDAP 0.5mL (Boostrix) IM Intramuscular Jul 26, 2010 Administe red Pneumococcal 0.5mL Prevnar 13 IM Intramuscular November 10, 2015 A dministered Influenza 6mo & up Fluzone IM Intramuscular Jun 07, 2017 Admi nistered Influenza 6mo & up Fluzone IM Intramuscular Jun 01, 2016 Admi nistered Influenza 6mo & up Fluzone IM Intramuscular Aug 10, 2014 Admi nistered Influenza 6mo & up Fluzone IM Intramuscular May 15, 2012 Admi nistered Vitamin B-12 1000mcg/1mL Cyanocobalamin IM Intramuscular Apr 09, 2019 Administered Vitamin B-12 1000mcg/1mL Cyanocobalamin IM Intramuscular January Administered Vitamin B-12 1000mcg/1mL Cyanocobalamin IM Intramuscular Oct 15, 2019 Administered Vitamin B-12 1000mcg/1mL Cyanocobalamin SC Subcutaneous Apr 02, 2016 Administered Vitamin B-12 1000mcg/1mL Cyanocobalamin IM Intramuscular January Administered Vitamin B-12 1000mcg/1mL Cyanocobalamin SC Subcutaneous Jun 01, 2016 Administered Vitamin B-12 1000mcg/1mL Cyanocobalamin SC Subcutaneous November Administered Vitamin B-12 1000mcg/1mL Cyanocobalamin IM Intramuscular Aug 07, 2016 Administered Vitamin B-12 1000mcg/1mL Cyanocobalamin SC Subcutaneous Jun 20, 2020 Administered Vitamin B-12 1000mcg/1mL Cyanocobalamin IM Intramuscular November 242018 Administered Vitamin B-12 1000mcg/1mL Cyanocobalamin SC Subcutaneous Aug 05, 2015 Administered Vitamin B-12 1000mcg/1mL Cyanocobalamin IM Intramuscular January Administered Vitamin B-12 1000mcg/1mL Cyanocobalamin SC Subcutaneous Oct 06, 2015 Administered Vitamin B-12 1000mcg/1mL Cyanocobalamin IM Intramuscular Jun 12, 2019 Administered Vitamin B-12 1000mcg/1mL Cyanocobalamin SC Subcutaneous November Administered Vitamin B-12 1000mcg/1mL Cyanocobalamin IM Intramuscular Aug 13, 2019 Administered Vitamin B-12 1000mcg/1mL Cyanocobalamin IM Intramuscular Oct 03, 2016 Administered Vitamin B-12 1000mcg/1mL Cyanocobalamin IM Intramuscular Aug 15, 2020 Administered Vitamin B-12 1000mcg/1mL Cyanocobalamin SC Subcutaneous November Administered Vitamin B-12 1000mcg/1mL Cyanocobalamin IM Intramuscular January Administered Moderna #2 dose COVID-19 (given elsewhere) SARSCOV2 VAC 100M CG/0.5ML IM Unknown November 25, 2020 Administered Moderna #1 dose COVID-19 (given elsewhere) SARSCOV2 VAC 100M CG/0.5ML IM Unknown October 28, 2020 Administered SOCIAL HISTORY Tobacco Use: Social History Observation Description Date Details (start date - stop date) Former Smoker Sex Assigned At : Social History Observation Description Sex Assigned At Unknown Education: Question Answer Notes Level of Education: Not Finished College Language: Question Answer Notes Languages spoken: Tunisian Denominational: Question Answer Notes Denominational 13 Adventism Sexual Hx: Question Answer Notes Had sex in the last 12 months (vaginal, oral, or anal)? No LMP: hyster Have you ever had an STD? No Alcohol Screening: Question Answer Notes Did you have a drink containing alcohol in the past year? No Points 0 Interpretation Negative BMI Care Goal Follow-Up Question Answer Notes Above Normal BMI Follow-Up Lifestyle education regarding t Tobacco Use: Question Answer Notes Are you a: former smoker long times How long has it been since you last smoked? > 10 years REASON FOR REFERRAL No Information VITAL SIGNS Weight 248 lbs May, Weight-kg 112.49 kg May, Height 63 in May, BMI 43.93 kg/m2 May, Heart Rate 89 /min May, Respiratory Rate 20 /min May, Temperature 96.0 degrees Fahrenheit May, Oximetry 99% May, Blood pressure systolic 130 mm Hg May, Blood pressure diastolic 80 mm Hg May, MEDICATIONS Medication SIG (Take, Route, Frequency, Duration) Notes Start Da te End Date Status Diclofenac Sodium 1 % 4 gm Transdermal Four times a day to B knees for 30 day(s) Active Nystatin - as directed Orally Twice a day in the abdominal folds for 30 Days Oct, Active oxyCODONE HCl 10 MG 1 tablet as needed Orally 3 times a day Active Nystatin 746002 units/g . applied topically as direc gio bid x 10 days c flares for 30 day(s) Active COMPRESSION STOCKINGS 30-40 mmHg knee high I87.2 Daily for 90 da y(s) Jan, Active Flexeril 10 mg 30 10 mg one tablet orally every 8 hours prn pain Active Sucralfate 1 GM 1 tablet on an empty stomach Orally AC TID for 90 day (s) Active Vitamin D 5000 1 tablet Orally tid A ctive Calcium 600+D High Potency 600-400 MG-UNIT 1 tablet wi th food Orally Twice a day Active Ferrous Gluconate 325 MG 1 tablet Orally twice daily Active Loratadine 10 MG 1 tablet Orally Once a day Active metFORMIN HCl ER 500 MG 1 tab with largest meal Orally Daily Active Rivaroxaban 20 MG 1 tablet with food Orally Once a day for 90 day(s) Active Cyanocobalamin 1000 MCG/ML 1000 mcg subcutaneously every 8 weeks Active Tylenol Extra Strength 500 MG 1 tablet as needed Orally Daily IN AM Active Albuterol Sulfate HFA 108 (90 Base) MCG/ACT INHALE 2 P UFFS BY MOUTH FOUR TIMES DAILY NEEDED for 75 Active Sucralfate 1 GM TAKE ONE TABLET BY MOUTH THREE TIMES DAILY for 30 Active ProAir HFA 108 (90 Base) MCG/ACT 2 puffs as needed Inh alation qid prn for 30 day(s) Active Pantoprazole Sodium 40 MG 1 tablet Orally bid for 90 day(s) Active Reclast 5 MG/100ML as directed Intravenous Active PROCEDURES from 1955 to 2021-06-15 Procedure Date Ordered Result Body Site Imm: Flublok Quadrivalent 18 years & older 0.5mL IM Influenza 20 15-06-14 N/A RESULTS No Results REASON FOR VISIT 4m f/u MEDICAL (GENERAL) HISTORY Type Description Date Medical History right shoulder supraspinatus tear status post arthroscopic repair 12/2008-Setter Medical History hypertension, essential Medical History allergic rhinitis h/o immuno therapy x >10Y-stopped 2 inadequate response Medical History nonalcoholic fatty liver disease c mild chronic elevated ALP Medical History obesity, morbid status post R-Y gastric bypass 06/2006, 12/29/15-[facility]afat Medical History vitamin D deficiency Medical History anemia, iron/Fe deficiency Medical History history of right lower extremity DVT x2 Medical History impaired fasting glucose Medical History history of nicotine addictio n-smoked 7 cigs qd x 10Y, quit at 28 yo-04/2012 FEV1 2.3L (99%)/ratio 108% Medical History GERD-11/2014 normal EGD-[facility] Medical History tubular adenoma by 11/2014 co lonoscopy-[facility]//3/2/21 colon WNL-R Medical History atrial fibrillation, paroxys [id number]-gsbel POD 2 TKR 05/2015-sp pulmonary vein isolation, ILR ssjobbd-[facility]-27/9/19 Medical History LISA, moderate-07/2017 HST JLUIS 17 c SaO2 to 88% Medical History ho MRSA abscess- has been treated and te sted negative Medical History lumbar DJD-11/2017 MRI L5/S1 bulge extending into B NF displacing R S1 root, mild L4/5 CCS Medical History R T5 zoster rxed c valcyc/pred 05/2018 Surgical History I&D Abdomen Abscess 05/2010 Surgical History open gastric bypass 2006 Surgical History partial Hysterectomy 2007 Surgical History Right Shoulder Surgery (x2) 2008 and 200 9 Surgical History appendectomy age 9 Surgical History right wrist surgery x 2 1980s Surgical History throat tumor age 16 Surgical History surgery for deviated septum age 18 Surgical History AD vmuitzqz-Zplok-Gzjrmpbpi 02/2014 Surgical History R TKR- Dr. Crawford-[place] 06/20/15 Surgical History Gastric Bypass Revision-Rafat 12/29/15 Surgical History L TKR-Dr. Crawford-S[place] 01/01/17 Surgical History robotic ventral hernia repai r 2 surgical ventral hernia-Rafat 05/16/17 Surgical History has IVC filter Surgical History Cardiac ablation and mplanted Cardiac Mo ntior 06/03/19 Hospitalization History I&D MRSA abdomen abscess 05/2010 Hospitalization History acute dyspnea/hypoxia (qhs p rior normal meal)-ELISA awoke 530 2 WANDA, then immediately caused cough/dyspnea-felt aspiration PN, in ED received albuterol neb x 3 then went into Afib c RVR, converted in ED c IV amiodarone 150 x 2, -BLE DVT US,- CXR x 2 (09/09, 09/09-09/11/14 Goals Section No Information Health Concerns No Information MEDICAL EQUIPMENT No Information MENTAL STATUS No Information FUNCTIONAL STATUS No Information ASSESSMENTS Encounter Date Diagnosis Assessment Notes Treatment Notes Treatm ent Clinical Notes May, Allergic rhinitis (ICD-10 - J30.9) Stable on isrrael 10 May, Atrial fibrillation (ICD-10 - I48.91) Patient remains asymptomatic / ILR followed by [facility] (px states they offered Watchman to come off AC) rivarox for AC no RC (08/2020 met suc 25 held by Dede given SBP to 90s) 06/03/19 sp PVI c ILR placement-[facility]med 05/2015 new onset POD2 TKR-Dede then started Xarelto and metoprol [address] Aguayo May, Iron deficiency anemia, unspecified (ICD-10 - D5 0.9) Contingency: CFM 06/08/21 11.1, 89, 12, r27/1.3 on 65 BID 12/09/20 11.5, 89, viri 13 02/23/20 10.6, 89, r29/1.3 11/2018 12.5, 88, r29/1.3 on 65 BID 07/2018 sp Venofer 250 x 1 s se-Ismael 01/2018 12.3, 93, CHr 32 on 65 BID 07/2017 12.5, 90, 12%, 14 03/2017 13.8, 13%, 20, CHr 30 on BID 11/2016 11.2, 15%, 8; therefore, Dr. Mendez started Fe gluconate 325 BID 08/2016 13.0, 13%, 11 on Niferex 150 QD until 2W prior-but stopped 2 cost 06/2016 12.5, 90, 16%, 17 on Niferex 150 QD-which she tolerates but too expensive-$15 qM 02/2016 11.6, 84, 13%, 20; therefore, increased to FeSO4 325 QOD to Niferex 150 QD/QOD 10/2015 12.3, 15%, 15 05/2015 13.0 02/2015 patient decreased self to QD given 2 constipation-resolved on QD 11/2014 12%, 15 on FeSO4 325 BID 08/2014 11.6 09/2013 12.2, 15%, 16 on FeSO4 325 BID 09/2012 12.8, transferrin saturation 10%, ferritin 15 03/2017 - TTG 14 May, 2021 Vitamin B12 deficiency anemia, unspecified (ICD- 10 - D51.9) 1000 mcg SC q8W at [facility] clinic hgb as per Fe 12/09/20 596 04/09/19 449 (previous B12 1 SC 60D prior) 09/2018 635 01/2018 >2000 (but had received B12 same day 04/05/2017 434 (diane dose-received B12 that day) 11/2016 437 on 1 mg SC q8W (solely s po) 09/30/18 RBC folate 608 May, Annual physical exam (ICD-10 - Z00.00) May, Encounter for immunization (ICD-10 - Z23) May, IFG (impaired fasting glucose) (ICD-10 - R73.01) mother, father c T2DM 06/08/21 5.7, 97 12/09/20 5.8 09/12/20 + met XR 500 AC din 08/15/20 gave FSL2 to use as glucometer +/- CGM 02/23/20 6.5 (108, 10) 04/09/19 6.2 (85, 11) 11/2018 6.0 (106, 13) 11/2016 5.9 08/2016 5.5 06/2016 5.3 02/2016 5.7 10/2015 A1C 5.6 12/09/20 ANNY/creatinine 7 12/09/20 57/63/95 02/23/20 48/54/132 11/2018 54/55/98 01/2018 77/69/90, 37, 0.4 08/2016 lipids 67/73/74 TSH as per hypo May, FH: colon cancer (ICD-10 - Z80.0) 10/2025 repeat colon-R MGF and 1D cousin (dx at 30Y) had colon CA May, Osteopenia (ICD-10 - M85.80) Recheck BMD 07/2022 RF:mother c porosis and h/o hip fracture sp ZA x last 06/202007/14/20 -1.8/-1.6/3.1 c 9/5/2% change cw ; therefore, CCR 03/2018 -1.5/-1.3/2.9 c -11/-2/2% change cw 03/2018; therefore, 05/2018 + ZA (defers po bisphos given gb status) 10/2015 -0.6/-1.2/2.6 c -2.3/-5.7/-2.6% change c/w 10/2012; therefore, CCR 10/2012 bseline BMD -0.4/-0.8/2.9 therefore CCR 14 May, 2021 Vitamin D deficiency, unspecified (ICD-10 - E55. 9) 2 previous gb and WANDA regimen 0-1 serving dietary calcium daily 12/09/20 52, PTH 88 02/23/20 55, 8.7, 135 (ALP 185); therefore, D3 10K to 15K QD c CC 600 BID 11/2018 51, 8.5, 97 01/2018 14, 9.1, 52 on 15K D3 QD and Ca 1200 03/2017 32, 9.3, PTH 39 08/2016 39, 9.2 on D3 15K total daily 02/2016 51, 9.0, PTH 48 11/2014 20, 9.2 on D3 5K BID, therefore 05/2015 increased to TID 02/2014 17, 9.0 therefore changed Drisdol qW to D3 5k qd 03/2013 40, 9.1 09/2012 15, encouraged Drisdol compliance and added Ca/vitamin D 600/400 BID 04/2012 28 01/2012 vitamin D 18 therefore Drisdol started May, Hypertension, essential (ICD-10 - I10) Stable on behavorial rx Contingency: los 08/2020 Dede held met suc given sx SBP in 90s 01/27/20 12/0.7, 4.4 May, Hx of colonic polyp (ICD-10 - Z86.010) repeat colonoscopy as per FH colon CA May, Lumbar spondylosis (ICD-10 - M47.816) Stable on oxy 5 TID and ami 25 QHS cannot tolerate LD evelyn/pregalbin/ami -02/2019 LESI x 3 by M 04/2018 L SIJ 03/2018 LESI 01/09/18 ~75% improvement c L SIJ injection 12/2017 Dr. Pisano + oxy 10 TID and ami 25 QHS 10/15/17 sudden onset L paralumbar pain c LLE radicular pain May, Primary osteoarthritis of both knees (ICD-10 - M 17.0) Stable on diclo 1% QID prn May, Impingement syndrome of left shoulder (ICD-10 - M75.42) favor 2 overuse (R dom but carries can c L hand) Contingency: diclof QID, PT +/- injection ho R cuff repair surgery 11/07/18 3W flare s precedent trauma May, OAB (overactive bladder) (ICD-10 - N32.81) increased sx x 1M s dysuria/abdominal pain May, LISA (obstructive sleep apnea) (ICD-10 - G47.33) Encouraged compliance c CPAP 12 via FFM follows with Dr. Soni 07/2017 HST given increased DS, loud reported snoring and 08/07/17 episode of pAF which woke from sleep at 7 AM (recurrent sx c weight gain) cw moderate LISA as per ; therefore, referred for NPSG done 09/21/17 May, Chronic depression (ICD-10 - F32.9) 07/2017 replace LT4, rx LISA-reassess in 4-6W Contingency: Lexapro May, Hypothyroidism, acquired, autoimmune (ICD-10 - E 06.3) no obvious FH of thyroid disease x brother had thyroidectomy for unknown reason Contingency: LT 12.5 (slow given AF) 06/08/21 2.7, 1.0 11/2018 3.6, 1.0 07/2017 2.3, 1.1 03/2017 3.1, 1.1 c TPO Ab 91, TG Ab 45 11/2016 2.7, 1.0 08/2016 TSH 2.6, FT4 1.1 May, Dyspepsia (ICD-10 - R10.13) Stable on regimen as per WANDA 04/24/17 EGD c Rafat 03/2017 - H pylori Ab May, Gastric bypass status for obesity (ICD-10 - Z98. 84) No dumping symptoms sp open gb 2007/revision 2016-Rafat follows Dr. Douglass 06/2017 no further surgical options per Rafat 11/2016 B1 156 B12/folate as per B12 Fe as per Fe vitamin D as per vitamin D May, Non morbid obesity due to excess calories (ICD-1 0 - E66.09) Encouraged weight loss May, Asthma, mild intermittent (ICD-10 - J45.20) Stable on prn ProAir prn flares May, GERD (gastroesophageal reflux disease) (ICD-10 - K21.9) Stable on panto 40 BID and sulcraf 1 AC TID 12/2016 increased to QID and held vit C 2 dyspepsia 08/2016 restarted Carafate 1 BID by Rafat 12/2015 stopped Carafate QID favor component delayed gastric emptying 2 Oxycontin 10 usually ~3x daily and T2DM 11/2014 normal EGD-[facility] 08/2014 added Reglan 10 QHS c improved sx, but 11/2014 [facility] changed to Carafate 1 QID Continues to sleep at 45 degrees c 4 pillows 09/24/14 added Reglan 10 qhs c marked improvement and referred for EGD to [facility], ending last meal at 1700, reclining 1900; apt c [facility] 12/07/14, Rafat plans gb revision for further loss 08/2014 increased to AC 40 BID p qhs WANDA causing aspiration PN 01/2014 Protonix 40 AC dinner started by [facility] May, Breast cancer screening (ICD-10 - Z12.39) 06/2020 B C1 mammogram May, Intertriginous candidiasis (ICD-10 - B37.2) Stable on nystatin BID prn PLAN OF TREATMENT Medication Medication Name Sig Start Date Stop Date Ferrous Gluconate 325 MG 1 tablet Orally twice daily ProAir HFA 108 (90 Base) MCG/ACT 2 puffs as needed Inh alation qid prn for 30 day(s) Calcium 600+D High Potency 600-400 MG-UNIT 1 tablet wi th food Orally Twice a day Vitamin D 5000 1 tablet Orally tid Cyanocobalamin 1000 MCG/ML 1000 mcg subcutaneously every 8 weeks Loratadine 10 MG 1 tablet Orally Once a day Pantoprazole Sodium 40 MG 1 tablet Orally bid for 90 day(s) Rivaroxaban 20 MG 1 tablet with food Orally Once a day for 90 da y(s) metFORMIN HCl ER 500 MG 1 tab with largest meal Orally Daily Nystatin 892410 units/g . applied topically as direc gio bid x 10 days c flares for 30 day(s) Reclast 5 MG/100ML as directed Intravenous oxyCODONE HCl 10 MG 1 tablet as needed Orally 3 times a day Diclofenac Sodium 1 % 4 gm Transdermal Four times a day to B knees for 30 day(s) Sucralfate 1 GM 1 tablet on an empty stomach Orally AC TID for 9 0 day(s) Treatment Notes Assessment Notes Clinical Notes OAB (overactive bladder) increased sx x 1M s dysuria/abdominal pain Allergic rhinitis Stable on isrrael 10 Impingement syndrome of left shoulder fa vor 2 overuse (R dom but carries can c L hand)Contingency: diclof QID, PT +/- injectionho R cuff repair surgery11/07/18 3W flare s precedent trauma Intertriginous candidiasis Stable on nys tatin BID prn Atrial fibrillation Patient remains asym ptomatic / ILR followed by [facility] (px states they offered Watchman to come off AC)rivarox for ACno RC (08/2020 met suc 25 held by Dede given SBP to 90s)06/03/19 sp PVI c ILR placement-[facility]05/2015 new onset POD2 TKR-Dede then started Xarelto and metoprol [address] Aguayo Chronic depression 07/2017 replace LT4, rx LISA-reassess in 4-6WContingency: Lexapro Iron deficiency anemia, unspecified Cont ingency: CFM10 11.1, 89, 12, r27/1.3 on 65 BID4/ 11.5, 89, viri 136// 10.6, 89, r29/1. 12.5, 88, r29/1.3 on 65 BID12 sp Venofer 250 x 1 s se-Tyler01/2018 12.3, 93, CHr 32 on 65 BID12/2017 12.5, 90, 12%, 148/2016 13.8, 13%, 20, CHr 30 on BID42017 11.2, 15%, 8; therefore, Dr. Mendez started Fe gluconate 325 BID08/2016 13.0, 13%, 11 on Niferex 150 QD until 2W prior-but stopped 2 cost06/2016 12.5, 90, 16%, 17 on Niferex 150 QD-which she tolerates but too expensive-$15 qM7 11.6, 84, 13%, 20; therefore, increased to FeSO4 325 QOD to Niferex 150 QD/QOD10/2015 12.3, 15%, 151 13.02/2015 patient decreased self to QD given 2 constipation-resolved on QD11/2014 12%, 15 on FeSO4 325 BID08/2014 11. 12.2, 15%, 16 on FeSO4 325 BID09/2012 12.8, transferrin saturation 10%, ferritin 158/2016 - TTG LISA (obstructive sleep apnea) Encouraged compliance c CPAP [address] Soni07/2017 HST given increased DS, loud reported snoring and 08/07/17 episode of pAF which woke from sleep at 7 AM (recurrent sx c weight g ain) cw moderate LISA as per ; therefore, referred for NPSG done 09/21/17 Vitamin B12 deficiency anemia, unspecified 1000 mcg SC q8W at [facility] clin[facility]gb as per 12/09/20 449 (previous B12 1 SC 60D prior)09/2018 63 >2000 (but had received B12 same day04/05/2017 434 (diane dose-received B12 that day)11/2016 437 on 1 mg SC q8W (solely s po)09/30/18 RBC folate 608 Dyspepsia Stable on regimen as per GER04/24/17 EGD c DeSimone03/2017 - H pylori Ab IFG (impaired fasting glucose) mother, f ather c T2DM06/08/21 5.7, 974 5.81/ + met XR 500 AC din08/15/20 gave FSL2 to use as glucometer +/- CGM02/23/20 6.5 (108, 10)04/09/19 6.2 (85, 11)11/2018 6.0 (106, 13)11/2016 5. 5.511/2015 5. 5. A1C 5.64 ANNY/creatinine 74 57/63/956/ /2018 54/55/986/2017 77/69/90, 37, 0. lipids 67/73/74TSH as per hypo Hypothyroidism, acquired, autoimmune no obvious FH of thyroid disease x brother had thyroidectomy for unknown reasonContingency: LT 12.5 (slow given AF)06/08/21 2.7, 1.11/2018 3.6, 1.012 2.3, 1. 3.1, 1.1 c TPO Ab 91, TG Ab 454 2.7, 1.08/2016 TSH 2.6, FT4 1.1 FH: colon cancer 10/2025 repeat colon- RMGF and 1D cousin (dx at 30Y) had colon CA Non morbid obesity due to excess calories Encouraged weight loss Osteopenia Recheck BMD F:mother c porosis and h/o hip fracturesp ZA x last / -1.8/-1.6/3.1 c 9/5/2% change cw ; therefore, CCR03/2018 -1.5/-1.3/2.9 c -11/-2/2% change cw 03/2018; therefore, 05/2018 + ZA (defers po bisphos given gb status)10/2015 -0.6/-1.2/2.6 c -2.3/-5.7/-2.6% change c/w 10/2012; therefore, CCR10/2012 bseline BMD -0.4/-0.8/2.9 therefore CCR Gastric bypass status for obesity No dum ping symptomssp open gb 2006/revision 2015-Veraimonefollows Dr. LearySvScrrrp79/2017 no further surgical options per DeSimone11/2016 B1 156B12/folate as per B12Fe as per Fevitamin D as per vitamin D Asthma, mild intermittent Stable on prn ProAir prn flares Primary osteoarthritis of both knees Sta ble on diclo 1% QID prn Breast cancer screening 06/2020 B C1 beatriz mogram Lumbar spondylosis Stable on oxy 5 TID and ami 25 QHScannot tolerate LD evelyn/pregalbin/ami3-02/2019 LESI x 3 by L SIJ03/2018 LESI01/09/18 ~75% improvement c L SIJ injection12/2017 Dr. Pisano + oxy 10 TID and ami 25 QHS10/15/17 sudden onset L paralumbar pain c LLE radicular pain GERD (gastroesophageal reflux disease) S table on panto 40 BID and sulcraf 1 AC TID12/2016 increased to QID and held vit C 2 dyspepsia08/2016 restarted Carafate 1 BID by DeSimone12/2015 stopped Carafate QIDfavor component delayed gastric empt jonelle 2 Oxycontin 10 usually ~3x daily and T2DM11/2014 normal EGD-[facility]08/2014 added Reglan 10 QHS c improved sx, but 11/2014 [facility] changed to Carafate 1 QIDContinues to sleep at 45 degrees c 4 pillows09/24/14 added Reglan 10 qhs c marked improvement and referred for EGD to [facility], ending last meal at 1700, reclining 1900; apt c [facility] 12/07/14, Rafat plans gb revision for further loss08/2014 increased to AC 40 BID p qhs WANDA causing aspiration PN01/2014 Protonix [address] AC [address] [facility] Vitamin D deficiency, unspecified 2 prev ious gb and WANDA regimen0-1 serving dietary calcium daily12/09/20 52, PTH 886 55, 8.7, 135 (ALP 185); therefore, D3 10K to 15K QD c CC 600 BID11/2018 51, 8.5, 976 14, 9.1, 52 on 15K D3 QD and Ca 4511403/2017 32, 9.3, PTH 391 39, 9.2 on D3 15K total daily02/2016 51, 9.0, PTH 484 20, 9.2 on D3 5K BID, therefore 05/2015 increased to TI 17, 9.0 therefore changed Drisdol qW to D3 5k qd03/2013 40, 9.07/2013 15, encouraged Drisdol compliance and added Ca/vitamin D 600/400 BID04/2012 286 vitamin D 18 therefore Drisdol started Hypertension, essential Stable on behavo rial rxContingency: los08/2020 Dede held met suc given sx SBP in 90s6//20 12/0.7, 4.4 Hx of colonic polyp repeat colonoscopy a s per FH colon CA Treatment Notes Test Name Order Date WMM DIAGNOSTIC BILAT MAMMO (Ultrasound if indicated) W MM.DIAGBIL WWBC 2021-06-08 Future Test Test Name Order Date INSULIN LEVEL 20210908 HEMOGLOBIN A1c 20210908 MICROALBUMIN RANDOM 20210908 Comprehensive Metabolic Profile (CMP) 20210908 FERRITIN 20210908 NT-PRO BNP 20210908 CBC with Differential 20210908 VITAMIN B12 LEVEL 20210908 RBC FOLATE PROFILE 20210908 VITAMIN D 25-HYDROXY 20210908 PTH INTACT 20210908 Next Appt Details 5M, BW 1W prior Reason: Provider Name:Harsh Dylon Ismael, 2021-07-24 0 8:00:00 AM, [address] [facility], , [place], [address], Provider Name:Buck Pisano, 2021-09-06 09:30:00 AM, [address] [facility] [address] [facility], , [place], [address], Provider Name:Harsh Guevara, 2021-11-07 1 1:45:00 AM, [address] [facility], , [place], [address], Insurance Providers Payer Name Payer Address Payer Phone Insured Name Patient Relati onship to Insured Coverage Start Date Coverage End Date [facility] [address] [facility] [address] NISHA MUNSON self MEDICAID [facility] [address] [facility] [id number] [phone] NISHA MUNSON
--- OUTSIDE RECORDS SUMMARY | 2021-06-27 12:09 | CCD | Continuity of Care Document ---
Author Author Flor PALM MD Organization Unknown Address [address] , [facility] [address] [place] [address] Phone [phone] Care Team Providers Care Instructor Pilot Name Role Phone Harsh Guevara M.D. AUTM [phone] Central Scheduling AUTM [phone] Diana Aguayo M.D. AUTM [phone] Problems Active Problems Provider Date Obstructive sleep [...] meals Unknown 0 Calcium 600 + D [id number] Tab lets 2 Daily Unknown Iron 325(65Fe) [...] Available Vital Signs Date Vital Result Comment 01/17/2021 8:20am BP Systolic 130 mmHg BP Diastolic 82 mmHg Heart Rate 86 /min O2 % BldC Oximetry 97 % Body Temperature 97.8 F Height 63 inches 5'3" Weight 262.00 lb BMI (Body Mass Index) 46.4 kg/m2 Seymour Body Weight 115 lb Weight 118.843 kg BSA (Body Surface Area) 2.17 m2 08/17/2020 9:26am BP Systolic 144 mmHg BP Diastolic 80 mmHg Height 63 inches 5'3" Weight 274.00 lb BMI (Body Mass Index) 48.5 kg/m2 Seymour Body Weight 115 lb Weight 124.286 kg BSA (Body Surface Area) 2.21 m2 Results Description No Information Available Procedures Date Code Description Status 04/14/2021 78191 Office/Outpatient New Moderate M DM 45-59 Minutes Completed 01/17/2021 08810 Office/Outpatient Established Lo w MDM 20-29 Min Completed 10/25/2020 79810 Colonoscopy Flexible Proximal To Splenic Flexure Diagnostic W/Or Completed Medical Devices Description No Information Available Encounters Type Date Location Provider Dx Diagnosis Office Visit 04/14/2021 11:00a [facility] Adriano Palm MD M75.42 Impingement syndrome of left shoulder Office Visit 01/17/2021 8:30a [facility]Th[facility]acic RAFITA Schneider G47.33 Obstructive sleep apnea (adult) (pediatr ic) Assessments Date Code Description Provider 04/14/2021 M75.42 Impingement syndrome of left ginette ulder Adriano Palm MD 01/17/2021 G47.33 Obstructive sleep apnea (adult) (pediatric) RAFITA Kumar 10/25/2020 Z12.11 Encounter for screening for mora gnant neoplasm of colon Joaquín Deleon MD 10/25/2020 Z86.010 Personal history of colonic poly ps Joaquín Deleon MD 10/25/2020 Z80.0 Family history of malignant neop lasm of digestive organs Joaquín Deleon MD 10/25/2020 K57.30 Diverticulosis of la rge intestine without perforation or abscess without bleeding Joaquín Deleon MD Plan of Treatment Future Appointment(s):* 01/18/2022 8:30 am - RAFITA Kumar at [facility] 04/14/2021 - Adriano Palm MD* M75.42 Impingement syndrome of left shoulder Functional Status Description No Information Available Mental Status Description No Information Available Referrals Description No Information Available
--- OUTSIDE RECORDS SUMMARY | 2021-06-27 12:09 | CCD ---
Author Author [facility] Organization [facility] Address Unknown Phone Unavailable Care Team Providers Care Clinical Education Specialist Name Role Phone Harsh Guevara Unavailable PROBLEMS Type Condition ICD9-CM Code TIS44-WT Code Onset Dates Condition S tatus W/U Status Risk SNOMED Code Notes Problem Chronic depression F32.9 Active confirmed 1 63603169 Problem Other secondary osteoarthritis of left hip M16.7 Active confirmed 225298934 Problem Hypothyroidism, acquired, 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 Act kassie confirmed 156165321 Problem Osteoarthritis of left hip, unspecified osteoarthritis typ e M16.12 Active confirmed 439553253528512 Problem Lumbosacral radiculopathy due to degenerative kevan int disease of spine M47.27 Active confirmed 2180068 Problem Lumbar radiculopathy M54.16 Active confirmed 328717352 Problem Lumbar spondylosis M47.816 Active confirmed 435746667 Problem Lumbar disc disorder with myelopathy M51.06 Act kassie confirmed 449939086 Problem Gastric bypass status for obesity Z98.84 Active confirmed 683034511 Problem Lumbar disc disorder M51.9 Active confirmed 443839382 Problem Asthma, mild intermittent J45.20 Active confirmed 261864798 Problem Intertriginous candidiasis B37.2 Active confirmed 92381503 Problem Non morbid obesity due to excess calories E66.09 Active confirmed 631136611 Problem Dyspepsia R10.13 Active confirmed 580346578 Problem OAB (overactive bladder) N32.81 Active confirmed 057391763 Problem Neuropathy G62.9 Active confirmed 029637934 Problem Breast cancer screening Z12.39 Active confirmed 585226202 Problem Primary osteoarthritis of both knees M17.0 Act kassie confirmed 576855402 Problem Osteopenia M85.80 Active confirmed 255511340 Problem Intervertebral disc disorder with radiculopathy of lumbosacral region M51.17 Active confirmed 96883139 Problem GERD (gastroesophageal reflux disease) K21.9 A ctive confirmed 233520567 Problem Lumbosacral spinal stenosis M48.07 Active confirmed 787089876 Problem LISA (obstructive sleep apnea) G47.33 Active confirm ed 10133337 Problem Edema of lower extremity due to peripheral venous insu fficiency I87.2 Active confirmed 881750592 Problem IFG (impaired fasting glucose) R73.01 Active confir med 799279169 Problem Spinal stenosis of lumbar re gion, unspecified whether neurogenic claudication present M48.061 Active confirmed 23426054 Problem Atrial fibrillation I48.91 Active confirmed 36225051 Problem Intervertebral disc disorders with radiculopathy , lumbar region M51.16 Active confirmed 641047575296670 Problem Hypertension, essential I10 Active confirmed 52677196 Problem Allergic rhinitis due to pollen, unspecified seasonality J30.1 Active confirmed 19733516 Problem Other chronic pain G89.29 Active confirmed 8 4867345 Problem Lumbar disc displacement without myelopathy M51.26 Active confirmed 88082500 Problem Vitamin D deficiency, unspecified E55.9 Active con firmed 72914715 Problem FH: colon cancer Z80.0 Active confirmed 312 455983 Problem Lumbar facet arthropathy M46.96 Active confirmed 401523887 Problem Iron deficiency anemia, unspecified D50.9 Acti ve confirmed 08200069 Problem Sacroiliitis, not elsewhere classified M46.1 A ctive confirmed 99003223 Problem Vitamin B12 deficiency anemia, unspecified D51.9 Active confirmed 81427468 Problem Essential hypertension I10 Active confirmed 42978447 Problem Intervertebral disc disorders with radiculopathy , lumbosacral region M51.17 Active confirmed 00796537678666455 Problem Hx of colonic polyp Z86.010 Active confirmed 862876507 Problem Spondylosis without myelopathy or radiculopathy, lumbosacral region M47.817 Active confirmed 30456984 Problem Spondylosis without myelopathy or radiculopathy, lumbar region M47.816 Active confirmed 704046726 ALLERGIES Allergen (clinical drug ingredient) Drug/Non Drug Allergy do cumented on EMR Reaction Allergy Type Onset Date Status amitriptyline Amitriptyline HCl(NDC Code:[address]-66) MEMORA RY ISSUES Drug Allergy Active Singulair GERD Drug Allergy Active Talwin rash hives Drug Allergy Active Novacaine (pt notes she was ok with recent Lidocai swe lling Non Drug Allergy Active Vicodin itch Drug Allergy Active doxycycline Doxycycline Hyclate(NDC Code:[address]-12) rash Dr ug Allergy Active tetracycline Tetracycline HCl(NDC Code:[address]-01) Hives Drug Allergy Active Adhesive red,irritation if on long time Non Drug Allergy Active pregabalin Lyrica(NDC Code:[address]-24) shaking /forgetfulness Drug Allergy Active Penicillin (For Allergies Use Only) rash Drug Allerg y Active sulfamethoxazole / trimethoprim Bactrim(NDC Code:[address]-60) Rash Drug Allergy Active codeine Codeine Sulfate(NDC Code:[address]-62) unconsciousness Dr ug Allergy Active gabapentin Gabapentin(NDC Code:[address]-59) irritability/ aggressiveness Drug Allergy Active erythromycin Erythromycin(NDC Code:[address]-92) rash Drug All ergy Active ENCOUNTERS from 1955 to 2021-05-23 Encounter Location Date Provider Diagnosis [address] [phone] [place] [address] Apr, Harsh Guevara Vitamin B12 deficiency anemi a, unspecified D51.9 IMMUNIZATIONS Vaccine Route Administration Date Status Vitamin B-12 1000mcg/1mL Cyanocobalamin IM Intramuscular November 242017 Administered Vitamin B-12 1000mcg/1mL Cyanocobalamin IM Intramuscular February Administered Vitamin B-12 1000mcg/1mL Cyanocobalamin IM Intramuscular January Administered Vitamin B-12 1000mcg/1mL Cyanocobalamin SC Subcutaneous Apr 03, 2018 Administered Vitamin B-12 1000mcg/1mL Cyanocobalamin IM Intramuscular Jun 03, 2018 Administered Vitamin B-12 1000mcg/1mL Cyanocobalamin IM Intramuscular Apr 05, 2017 Administered Vitamin B-12 1000mcg/1mL Cyanocobalamin SC Subcutaneous Jun 20, 2020 Administered Vitamin B-12 1000mcg/1mL Cyanocobalamin IM Intramuscular Jun 07, 2017 Administered Influenza 18 yrs & older Flublok IM Intramuscular Jul 20, 2020 Administered Vitamin B-12 1000mcg/1mL Cyanocobalamin IM Intramuscular Aug 07, 2017 Administered Vitamin B-12 1000mcg/1mL Cyanocobalamin IM Intramuscular Aug 15, 2020 Administered Vitamin B-12 1000mcg/1mL Cyanocobalamin IM [...] 1000mcg/1mL Cyanocobalamin IM Intramuscular January Administered Moderna #1 dose COVID-19(given elsewhere) SARSCOV2 VAC 100MC G/0.5ML IM Unknown October 28, 2020 Administered Vitamin B-12 1000mcg/1mL Cyanocobalamin SC Subcutaneous Apr 02, 2016 Administered Influenza 18 yrs & older Flublok IM Intramuscular Jun 03, 2018 Administered Vitamin B-12 1000mcg/1mL Cyanocobalamin SC Subcutaneous Jun 01, 2016 Administered Vitamin B-12 1000mcg/1mL Cyanocobalamin IM Intramuscular Aug 13, 2019 Administered Vitamin B-12 1000mcg/1mL Cyanocobalamin IM Intramuscular Aug 07, 2016 Administered Vitamin B-12 1000mcg/1mL Cyanocobalamin IM Intramuscular Oct 15, 2019 Administered Vitamin B-12 1000mcg/1mL Cyanocobalamin IM Intramuscular November 242018 Administered Vitamin B-12 1000mcg/1mL Cyanocobalamin SC Subcutaneous Aug 05, 2015 Administered Vitamin B-12 1000mcg/1mL Cyanocobalamin IM Intramuscular January Administered Vitamin B-12 1000mcg/1mL Cyanocobalamin SC Subcutaneous Oct 06, 2015 Administered Vitamin B-12 1000mcg/1mL Cyanocobalamin IM Intramuscular Jun 12, 2019 Administered Vitamin B-12 1000mcg/1mL Cyanocobalamin SC Subcutaneous November Administered Moderna #2 dose COVID-19(given elsewhere) SARSCOV2 VAC 100MC G/0.5ML IM Unknown November 25, 2020 Administered Vitamin B-12 1000mcg/1mL Cyanocobalamin IM Intramuscular Oct 03, 2016 Administered Vitamin B-12 1000mcg/1mL Cyanocobalamin IM Intramuscular January Administered Vitamin B-12 1000mcg/1mL Cyanocobalamin SC Subcutaneous November Administered Vitamin B-12 1000mcg/1mL Cyanocobalamin IM Intramuscular January Administered Vitamin B-12 1000mcg/1mL Cyanocobalamin SC Subcutaneous November Administered Zoster 50mcg/0.5mL Shingrix IM Intramuscular October 27, 2019 Adm inistered SOCIAL HISTORY Tobacco Use: Social History Observation Description Date Details (start date - stop date) Former Smoker Sex Assigned At : Social History Observation Description Sex Assigned At Unknown Education: Question Answer Notes Level of Education: Not Finished College Language: Question Answer Notes Languages spoken: Kyrgyz Zoroastrian: Question Answer Notes Zoroastrian 13 Zoroastrianism Sexual Hx: Question Answer Notes Had sex [...] REASON FOR REFERRAL No Information VITAL SIGNS No information MEDICATIONS Medication SIG (Take, Route, Frequency, Duration) Notes Start Da te End Date Status Flexeril 10 mg 30 10 mg one tablet orally every 8 hours prn pain Active Calcium 600+D High Potency 600-400 MG-UNIT 1 tablet wi th food Orally Twice a day Active Accu-Chek Soft Touch Lancets 1 1 lancet E11.9 bid for 30 Days Jul, Active Tylenol 8 Hour 650 MG 2 tablets as needed Orally every morning Active May Have - accucheck guide meter E11.9 Daily for 999 days Jan, Active Vitamin D 5000 1 tablet Orally tid A ctive Xarelto 20 mg 1 tab(s) oral at dinner time Active Claritin 10 MG 1 tablet Orally Once a day for 30 day(s) Oct, Active Ferrous Gluconate 325 MG 1 tablet Orally twice daily Active Vitamin B12 1000 MCG . SC every 8 weeks Active Albuterol Sulfate HFA 108 (90 Base) MCG/ACT INHALE 2 P UFFS BY MOUTH FOUR TIMES DAILY NEEDED for 75 Active Pantoprazole Sodium 40 MG 1 tablet Orally bid for 90 day(s) Active Nystatin - as directed Orally Twice a day in the abdominal folds for 30 Days Oct, Active May Have - accucheck guide test strips E11.9 Daily for 30 days Jan, Active Diclofenac Sodium 1 % 4 gm Transdermal Four times a day to B knees for 30 day(s) Active COMPRESSION STOCKINGS 30-40 mmHg knee high I87.2 Daily for 90 da y(s) Jan, Active Nystatin 870351 units/g . applied topically as direc gio bid x 10 days c flares for 30 day(s) Active oxyCODONE HCl 5 MG 1 tablet as needed Orally 3 times a day Active Blood Glucose Test 1 as directed E11.9 bid for 90 day(s) 2 Jul, Active Accu-Chek Regina 1 as directed e11.9 bid for 90 day(s) 22 D 2019 Active Sucralfate 1 GM TAKE ONE TABLET BY MOUTH THREE TIMES DAILY for 30 Active metFORMIN HCl ER 500 MG 1 tab with largest meal Orally Daily Aug, Active Reclast 5 MG/100ML as directed Intravenous Active PROCEDURES from 1955 to 2021-05-23 Procedure Date Ordered Result Body Site Med: Vitamin B-12 1000mcg/1mL IM Cyanocobalamin 2021-05-23 N/A RESULTS No Results REASON FOR VISIT b12 MEDICAL (GENERAL) HISTORY Type Description Date Medical [...] Medical History tubular adenoma by 11/2014 co lonoscopy-Reind[facility]//10/25/20 colon WNL-R Medical History atrial fibrillation, paroxys [id number] POD 2 TKR 05/2015-sp pulmonary vein isolation, ILR bobtyiq-Gwpxw-20/9/19 Medical History LISA, moderate-07/2017 HST JLUIS 17 c SaO2 to 88% Medical History ho MRSA abscess- has been treated and te sted negative Medical History lumbar DJD-11/2017 MRI L5/S1 bulge extending into B NF displacing R S1 root, mild L4/5 CCS Medical History R T5 zoster rxed c valcyc/pred 05/2018 Surgical History I&D Abdomen Abscess 05/2010 Surgical History open gastric bypass 2007 Surgical History partial Hysterectomy 2008 Surgical History Right Shoulder Surgery (x2) 2008 and 200 9 Surgical History appendectomy age 9 Surgical History right wrist surgery x 2 1980s Surgical History throat tumor age 16 Surgical History surgery for deviated septum age 18 Surgical History AD lvdumtsf-Zvevb-Qxqyahanw 02/2014 Surgical History R TKR- Dr. [place] 06/20/15 Surgical History Gastric Bypass Revision-Rafat 12/29/15 [...] Notes Treatment Notes Treatm ent Clinical Notes Apr, Vitamin B12 deficiency anemia, unspecified (ICD- 10 - D51.9) PLAN OF TREATMENT Medication Medication Name Sig Start Date Stop Date Albuterol Sulfate HFA 108 (90 Base) MCG/ACT INHALE 2 P UFFS BY MOUTH FOUR TIMES DAILY NEEDED for 75 Sucralfate 1 GM TAKE ONE TABLET BY MOUTH THREE TIMES DAILY for 3 0 May Have - accucheck guide meter E11.9 Daily for 999 days 1 6 Jan, 2021 May Have - accucheck guide test strips E11.9 Daily for 30 d ays Jan, Blood Glucose Test 1 as directed E11.9 bid for 90 day(s) Jul, Pantoprazole Sodium 40 MG 1 tablet Orally bid for 90 day(s) Accu-Chek Soft Touch Lancets 1 1 lancet E11.9 bid for 30 Days Jul, Accu-Chek Regina 1 as directed e11.9 bid for 90 day(s) Jul, Next Appt Details Provider Name:Buck Pisano, 2021-06-02 09:30:00 AM, [address] [facility] 3[address], , [place], [address], Provider Name:Harsh Guevara, 2021-06-08 0 3:30:00 PM, [address] [facility], , [place], [address], Provider Name:Harsh Guevara, 2021-07-24 0 8:00:00 AM, [address] [facility], , [place], [address], Insurance Providers Payer Name Payer Address Payer Phone Insured Name Patient Relati onship to Insured Coverage Start Date Coverage End Date MEDICAID [employer] [address] [facility] [id number] NISHA MUNSON [facility] [id number] [facility] [phone] NISHA MUNSON
--- OUTSIDE RECORDS SUMMARY | 2021-06-27 12:09 | CCD | Continuity of Care Document ---
Author Author Flor PALM MD Organization Unknown Address [address] , [facility] [address] [place] [address] Phone [phone] Care Team Providers Care Clinical Program Manager Name Role Phone Harsh Guevara M.D. AUTM [phone] Central Scheduling AUTM [phone] Diana Aguayo M.D. AUTM [phone] AUTM Unavailable Problems Active Problems Provider Date [...] meals Unknown 0 Calcium 600 + D [id number] Tab lets 2 Daily Unknown Iron 325(65Fe) [...] lb BMI (Body Mass Index) 46.4 kg/m2 Elizabeth Body Weight 115 lb Weight 118.843 kg BSA (Body Surface Area) 2.17 m2 Results Description No Information Available Procedures Date Code Description Status 05/05/2021 01173 Office/Outpatient Established Mo d MDM 30-39 Min Completed 05/05/2021 Inject/Drain Arthrocentesis Suzanne r Joint/Bursa/Ganglion Cyst Completed 04/14/2021 84477 Office/Outpatient New Moderate M DM 45-59 Minutes Completed 01/17/2021 16094 Office/Outpatient Established Lo w MDM 20-29 Min Completed Medical Devices Description No Information Available Encounters Type Date Location Provider Dx Diagnosis Office Visit 05/05/2021 9:00a [facility] Adriano Palm MD S46.092D Inj musc/tend the rotator cuff of left s [place] Office Visit 01/17/2021 8:30a [facility] RAFITA Schneider G47.33 Obstructive sleep apnea (adult) (pediatr ic) Assessments Date Code Description Provider 05/05/2021 S46.092D Other injury of musc le(s) and tendon(s) of the rotator cuff of left shoulder, subsequent encounter Adriano Palm MD 04/14/2021 M75.42 Impingement syndrome of left ginette ulder Adriano Palm MD 01/17/2021 G47.33 Obstructive sleep apnea (adult) (pediatric) RAFITA Kumar Plan of Treatment Future Appointment(s):* 06/16/2021 8:45 am - Adriano Palm MD at [facility] * 01/18/2022 8:30 am - RAFITA Kumar at [facility] 05/05/2021 - Adriano Palm MD* S46.092D Other injury of muscle(s) and tendon(s) of the rotator cuff of left shoulder, subsequent encounter Functional Status Description No Information Available Mental Status Description No Information Available Referrals Description No Information Available
--- OUTSIDE RECORDS SUMMARY | 2021-06-27 12:09 | CCD | Continuity of Care Document ---
Author Author Flor PALM MD Organization Unknown Address [address] , [facility] [address] [place] [address] Phone [phone] Care Team Providers Care Front Desk Name Role Phone Harsh Guevara M.D. AUTM [phone] Central Scheduling AUTM [phone] Diana Aguayo M.D. AUTM [phone] AUTM Unavailable Problems Active Problems Provider Date Obstructive sleep apnea syndrome Sally Coleman, A.N.P. Onset: 12/15/2019 Social History Type Date Description [...] Provide r Date CPAP Device 12cm LC-W Sally Coleman, A.N.P. 12/14/[address] 1 by [...] meals Unknown 0 Calcium 600 + D [id number] Tab lets 2 Daily Unknown Iron 325(65Fe) [...] lb BMI (Body Mass Index) 46.4 kg/m2 [place] Body Weight 115 lb Weight 118.843 kg BSA (Body Surface Area) 2.17 m2 Results Description No Information Available Procedures Date Code Description Status 06/16/2021 93137 Office/Outpatient Established Mo d MDM 30-39 Min Completed 05/05/2021 24815 Office/Outpatient Established Mo d MDM 30-39 Min Completed 05/05/202126695 Inject/Drain Arthrocentesis Suzanne r Joint/Bursa/Ganglion Cyst Completed 04/14/2021 14378 Office/Outpatient New Low MDM 30 -44 Minutes Completed 01/17/2021 39389 Office/Outpatient Established Lo w MDM 20-29 Min Completed Medical Devices Description No Information Available Encounters Type Date Location Provider Dx Diagnosis Office Visit 06/16/2021 8:45a [facility] Adriano Palm MD S46.012D Strain of musc/tend the rotator cuff of left shoulder, subs Office Visit 05/05/2021 9:00a [facility] Adriano Palm MD S46.012A Strain of musc/tend the rotator cuff of left shoulder, init M19.012 Primary osteoarthritis, left shoulder M75.42 Impingement syndrome of left shoulder Office Visit 04/14/2021 11:00a [facility] Adriano Palm MD M75.42 Impingement syndrome of left shoulder Office Visit 01/17/2021 8:30a [facility] Sally johnson A.N.P. G47.33 Obstructive sleep apnea (adult) (pediatr ic) Assessments Date Code Description Provider 06/16/2021 S46.012D Strain of muscle(s) and tendon(s) of the rotator cuff of left shoulder, subsequent encounter Adriano Palm MD 05/05/2021 S46.012A Strain of muscle(s) and tendon(s) of the rotator cuff of left shoulder, initial encounter Adriano Palm MD 05/05/2021 M19.012 Primary osteoarthritis, left ginette kelby Palm MD 05/05/2021 M75.42 Impingement syndrome of left ginette kelby Palm MD 04/14/2021 M75.42 Impingement syndrome of left ginette kelby Palm MD 01/17/2021 G47.33 Obstructive sleep apnea (adult) (pediatric) Sally Coleman, A.N.P. Plan of Treatment Future Appointment(s):* 01/18/2022 8:30 am - Sally Coleman A.N.P. at [facility] 06/16/2021 - Adriano Palm MD* S46.012D Strain of muscle(s) and tendon(s) of the rotator cuff of left shoulder, subsequent encounter* New Therapy:* Functional Status Description No Information Available Mental Status Description No Information Available Referrals Description No Information Available
--- OUTSIDE RECORDS SUMMARY | 2021-06-27 12:09 | CCD ---
Author Author [facility] Organization [facility] Address Unknown Phone Unavailable Care Team Providers Care Civil Drafter Name Role Phone Buck Pisano Unavailable PROBLEMS Type Condition ICD9-CM Code ZGW55-GH Code Onset Dates Condition S tatus W/U Status Risk SNOMED Code Notes Problem Chronic depression F32.9 Active confirmed 1 [id number] Problem Lumbosacral radiculopathy due to degenerative kevan int disease of spine M47.27 Active confirmed 9680354 Problem Other secondary osteoarthritis of left hip M16.7 Active confirmed 673461360 Problem Lumbar spondylosis M47.816 Active confirmed 835965377 Problem Osteoarthritis of left hip, unspecified osteoarthritis typ e M16.12 Active confirmed 566847709749738 Problem Lumbar facet arthropathy M46.96 Active confirmed 819361610 Problem Lumbar radiculopathy M54.16 Active confirmed 980820074 Problem Intervertebral disc disorders with radiculopathy , lumbar region M51.16 Active confirmed 240728674173900 Problem Non morbid obesity due to excess calories E66.09 Active confirmed 060520051 Problem Lumbar disc disorder with myelopathy M51.06 Act kassie confirmed 720795165 Problem Gastric bypass status for obesity Z98.84 Active confirmed 400788945 Problem Hypothyroidism, acquired, 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 Act kassie confirmed 541173999 Problem Intertriginous candidiasis B37.2 Active confirmed 18945505 Problem Primary osteoarthritis of both knees M17.0 Act kassie confirmed 038573896 Problem Dyspepsia R10.13 Active confirmed 120605762 Problem Lumbosacral spinal stenosis M48.07 Active confirmed 826906704 Problem LISA (obstructive sleep apnea) G47.33 Active confirm ed 27597007 Problem Neuropathy G62.9 Active confirmed 607163336 Problem Breast cancer screening Z12.39 Active confirmed 063541672 Problem Spinal stenosis of lumbar re gion, unspecified whether neurogenic claudication present M48.061 Active confirmed 20268781 Problem Atrial fibrillation I48.91 Active confirmed 22951885 Problem Intervertebral disc disorder with radiculopathy of lumbosacral region M51.17 Active confirmed 79476565 Problem GERD (gastroesophageal reflux disease) K21.9 A ctive confirmed 539943543 Problem Lumbar disc disorder M51.9 Active confirmed 528699697 Problem Asthma, mild intermittent J45.20 Active confirmed 603032303 Problem Edema of lower extremity due to peripheral venous insu fficiency I87.2 Active confirmed 114408821 Problem IFG (impaired fasting glucose) R73.01 Active confir med 497235794 Problem Hypertension, essential I10 Active confirmed 38391685 Problem Allergic rhinitis due to pollen, unspecified seasonality J30.1 Active confirmed 24302644 Problem Essential hypertension I10 Active confirmed 96567296 Problem FH: colon cancer Z80.0 Active confirmed 312 653718 Problem Sacroiliitis, not elsewhere classified M46.1 A ctive confirmed 84886748 Problem Vitamin B12 deficiency anemia, unspecified D51.9 Active confirmed 82536551 Problem Lumbar Facet arthropathy M47.816 Active confirmed 573946180 Problem Lumbar disc displacement without myelopathy M51.26 Active confirmed 95753281 Problem Vitamin D deficiency, unspecified E55.9 Active con firmed 82091990 Problem Hx of colonic polyp Z86.010 Active confirmed 362439338 Problem OAB (overactive bladder) N32.81 Active confirmed 296623756 Problem Iron deficiency anemia, unspecified D50.9 Acti ve confirmed 70123996 Problem Intervertebral disc disorders with radiculopathy , lumbosacral region M51.17 Active confirmed 55280823022206001 Problem Spondylosis without myelopathy or radiculopathy, lumbosacral region M47.817 Active confirmed 11614323 Problem Osteopenia M85.80 Active confirmed 225982289 Problem Spondylosis without myelopathy or radiculopathy, lumbar region M47.816 Active confirmed 193915679 Problem Other chronic pain G89.29 Active confirmed 8 8033520 ALLERGIES Allergen (clinical drug ingredient) Drug/Non Drug Allergy do cumented on EMR Reaction Allergy Type Onset Date Status amitriptyline Amitriptyline HCl(NDC Code:[address]-27) MEMORA RY ISSUES Drug Allergy Active Singulair GERD Drug Allergy Active Talwin rash hives Drug Allergy Active Novacaine (pt notes she was ok with recent Lidocai swe lling Non Drug Allergy Active Vicodin itch Drug Allergy Active doxycycline Doxycycline Hyclate(NDC Code:[address]-68) rash Dr lisa Allergy Active tetracycline Tetracycline HCl(NDC Code:[address]-85) Hives Drug Allergy Active Adhesive red,irritation if on long time Non Drug Allergy Active pregabalin Lyrica(NDC Code:[address]-74) shaking /forgetfulness Drug Allergy Active Penicillin (For Allergies Use Only) rash Drug Allerg y Active sulfamethoxazole / trimethoprim Bactrim(NDC Code:[address]-15) Rash Drug Allergy Active codeine Codeine Sulfate(NDC Code:[address]-51) unconsciousness Dr gonzalez Allergy Active gabapentin Gabapentin(NDC Code:[address]-86) irritability/ aggressiveness Drug Allergy Active erythromycin Erythromycin(NDC Code:[address]-95) rash Drug All ergy Active ENCOUNTERS from 1955 to 2021-06-02 Encounter Location Date Provider Diagnosis [facility] [address] Floor [phone] [place] [address] 08 May, 2021 Buck Pisano Lumbar spondylosis M 47.816 and Lumbar Facet arthropathy M47.816 IMMUNIZATIONS Vaccine Route Administration Date Status Vitamin B-12 1000mcg/1mL Cyanocobalamin IM Intramuscular November 242017 Administered Influenza 18 yrs & older Flublok IM Intramuscular Jul 20, 2020 Administered Vitamin B-12 1000mcg/1mL Cyanocobalamin IM Intramuscular January Administered Vitamin B-12 1000mcg/1mL Cyanocobalamin SC Subcutaneous Apr 03, 2018 Administered Vitamin B-12 1000mcg/1mL Cyanocobalamin IM Intramuscular Jun 03, 2018 Administered Vitamin B-12 1000mcg/1mL Cyanocobalamin IM Intramuscular Apr 05, 2017 Administered Vitamin B-12 1000mcg/1mL Cyanocobalamin IM Intramuscular February Administered Vitamin B-12 1000mcg/1mL Cyanocobalamin IM Intramuscular Jun 07, 2017 Administered Moderna #2 dose COVID-19 (given elsewhere) SARSCOV2 VAC 100M CG/0.5ML IM Unknown November 25, 2020 Administered Vitamin B-12 1000mcg/1mL Cyanocobalamin IM Intramuscular Aug 07, 2017 Administered Moderna #1 dose COVID-19 (given elsewhere) SARSCOV2 VAC 100M CG/0.5ML IM Unknown October 28, 2020 Administered Vitamin B-12 1000mcg/1mL Cyanocobalamin IM Intramuscular Oct 08, 2017 Administered Influenza 18 yrs & older Flublok IM Intramuscular Jun 03, 2018 Administered Influenza 6mo & up Fluzone IM [...] Cyanocobalamin IM Intramuscular Aug 07, 2016 Administered Zoster 50mcg/0.5mL Shingrix IM Intramuscular October 27, 2019 Adm inistered Vitamin B-12 1000mcg/1mL Cyanocobalamin IM Intramuscular November [...] 03, 2016 Administered Vitamin B-12 1000mcg/1mL Cyanocobalamin SC Subcutaneous Jun 20, 2020 Administered Vitamin B-12 1000mcg/1mL Cyanocobalamin SC Subcutaneous November Administered Vitamin B-12 1000mcg/1mL Cyanocobalamin IM Intramuscular January Administered Vitamin B-12 1000mcg/1mL Cyanocobalamin IM Intramuscular Aug 15, 2020 Administered Vitamin B-12 1000mcg/1mL Cyanocobalamin IM Intramuscular October 252020 Administered SOCIAL HISTORY Tobacco Use: Social History Observation Description Date Details (start date - stop date) Former Smoker Sex Assigned At : Social History Observation Description Sex Assigned At Unknown Education: Question Answer Notes Level of Education: Not Finished College Language: Question Answer Notes Languages spoken: Azerbaijani [facility]: Question Answer Notes [employer] Sexual Hx: Question Answer Notes Had sex [...] FOR REFERRAL No Information VITAL SIGNS Weight 245.2 lbs May, Weight-kg 111.22 kg May, Height 63 in May, BMI 43.43 kg/m2 May, Heart Rate 74 /min May, Respiratory Rate 18 /min May, Temperature 97.0 degrees Fahrenheit May, Oximetry 97% May, Blood pressure systolic 148 mm Hg May, Blood pressure diastolic 61 mm Hg May, MEDICATIONS Medication SIG (Take, Route, Frequency, Duration) Notes Start Da te End Date Status Ferrous Gluconate 325 MG 1 tablet Orally twice daily Active May Have - accucheck guide meter E11.9 Daily for 999 days Jan, Active Vitamin D 5000 1 tablet Orally tid A ctive Nystatin 837245 units/g . applied topically as direc gio bid x 10 days c flares for 30 day(s) Not-Taking Calcium 600+D High Potency 600-400 MG-UNIT 1 tablet food Orally Twice a day Active Nystatin - as directed Orally Twice a day in the abdominal folds for 30 Days Oct, Active Reclast 5 MG/100ML as directed Intravenous YEARLY Active Flexeril 10 mg 30 10 mg one tablet orally every 8 hours prn pain Active oxyCODONE HCl 5 MG 1 tablet as needed Orally 3 times a day PERCOCET Active Xarelto 20 mg 1 tab(s) oral at dinner time Active Accu-Chek Soft Touch Lancets 1 1 lancet E11.9 bid for 30 Days Jul, Active Sucralfate 1 GM TAKE ONE TABLET BY MOUTH THREE TIMES DAILY for 30 Active Pantoprazole Sodium 40 MG 1 tablet Orally bid for 90 day(s) Active Accu-Chek Regina 1 as directed e11.9 bid for 90 day(s) 22 D 2019 Active Tylenol 8 Hour 650 MG 2 tablets as needed Orally every morning Not-Taking Vitamin B12 1000 MCG . SC every 8 weeks Active metFORMIN HCl ER 500 MG 1 tab with largest meal Orally Daily Aug, Not-Taking COMPRESSION STOCKINGS 30-40 mmHg knee high I87.2 Daily for 90 da y(s) Jan, Active Blood Glucose Test 1 as directed E11.9 bid for 90 day(s) 2 Jul, Active Diclofenac Sodium 1 % 4 gm Transdermal Four times a day to B knees for 30 day(s) Not-Taking May Have - accucheck guide test strips E11.9 Daily for 30 days Jan, Active Claritin 10 MG 1 tablet Orally Once a day for 30 day(s) Oct, Active Albuterol Sulfate HFA 108 (90 Base) MCG/ACT INHALE 2 P UFFS BY MOUTH FOUR TIMES DAILY NEEDED for 75 Active Tylenol Extra Strength 500 MG 1 tablet as needed Orally Daily IN AM Active PROCEDURES No Information RESULTS No Results REASON FOR VISIT low back pain/responds well to RF MEDICAL (GENERAL) HISTORY Type Description Date Medical [...] colon WNL-R Medical History atrial fibrillation, paroxys [id number] POD 2 TKR 05/2015-sp pulmonary vein isolation, ILR [id number]-23/9/19 Medical History LISA, moderate-07/2017 HST JLUIS 17 [...] deviated septum age 18 Surgical History AD [id number] 02/2014 Surgical History R TKR- Dr. Crawford-Gardner 06/20/15 Surgical History Gastric Bypass Revision-Rafat 12/29/15 [...] Treatment Notes Treatm ent Clinical Notes May, Lumbar spondylosis (ICD-10 - M47.816) I discussed alternatives with Ms. Grant. As soon as the pain comes back, she will call me and we will see her in a few days and we can consider doing diagnostic tests to consider repeating the radiofrequency. The patient reports understanding and agrees with the plan. I, Anaid Gonzalez, documented the above information acting as a scribe for Dr. Pisano. I have reviewed the above document, written by justyna Nicole, and I verify that it is accurate. May, Lumbar Facet arthropathy (ICD9-CM - M47.816) PLAN OF TREATMENT Treatment Notes Assessment Notes Clinical Notes Lumbar spondylosis I discussed alternat taras with Ms. Grant. As soon as the pain comes back, she will call me and we will see her in a few days and we can consider doing diagnostic tests to consider repeating the radiofrequency. The patient reports understanding and agrees with the plan. IAnaid, documented the above information acting as a scribe for Dr. Pisano. I have reviewed the above document, written by Anaid DiLeonardo, senior medical transcriptionist, and I verify that it is accurate. Next Appt Details next available Reason:back pain Provider Name:Harsh Osborne Ismael, 2021-06-08 0 3:30:00 PM, [address] [facility], , [place], [address], Provider Name:Harsh Osborne Ismael, 2021-07-24 0 8:00:00 AM, [address] [facility], , [place], [address], Provider Name:Buck Pisano, 2021-09-06 09:30:00 AM, [address] [facility] [address] [facility], , [place], [address], Follow Up:next availableback pain Insurance Providers Payer Name Payer Address Payer Phone Insured Name Patient Relati onship to Insured Coverage Start Date Coverage End Date [facility] [address] [facility] [id number] NISHA GRANT MEDICAID [facility] [address] [facility] [id number] [phone] NISHA GRANT self
--- OUTSIDE RECORDS SUMMARY | 2021-06-27 12:10 | CCD ---
Author Author [facility] Organization [facility] Address Unknown Phone Unavailable Care Team Providers Care Patient Support Partner Name Role Phone Maring, Giovanni PA Unavailable Unavailable Maring, Giovanni PA Unavailable Unavailable Maring, Giovanni PA Unavailable Unavailable Maring, Giovanni PA Unavailable Unavailable Maring, Giovanni PA Unavailable Unavailable Maring, Giovanni PA Unavailable Unavailable Maring, Giovanni PA Unavailable Unavailable Maring, Giovanni PA Unavailable Unavailable Maring, Giovanni PA Unavailable Unavailable Maring, Giovanni PA Unavailable Unavailable Maring, Giovanni PA Unavailable Unavailable Maring, Giovanni PA Unavailable Unavailable Maring, Giovanni PA Unavailable Unavailable Maring, Giovanni PA Unavailable Unavailable Maring, Giovanni PA Unavailable Unavailable Maring, Giovanni PA Unavailable Unavailable [place], L Sally VISE HAND Unavailable Unavailable [place], L Sally VISE HAND Unavailable Unavailable [place], L Sally VISE HAND Unavailable Unavailable [place], L Sally VISE HAND Unavailable Unavailable [place], L Sally VISE HAND Unavailable Unavailable [place], L Sally VISE HAND Unavailable Unavailable [place], L Sally VISE HAND Unavailable Unavailable [place], L Sally VISE HAND Unavailable Unavailable [place], L Sally VISE HAND Unavailable Unavailable [place], L Sally VISE HAND Unavailable Unavailable [place], L Sally VISE HAND Unavailable Unavailable [place], L Sally VISE HAND Unavailable Unavailable [place], L Sally VISE HAND Unavailable Unavailable [place], L Sally VISE HAND Unavailable Unavailable [place], L Sally VISE HAND Unavailable Unavailable [place], L Sally VISE HAND Unavailable Unavailable [place], L Sally VISE HAND Unavailable Unavailable [place], L Sally VISE HAND Unavailable Unavailable [place], L Sally VISE HAND Unavailable Unavailable [place], L Sally VISE HAND Unavailable Unavailable [place], L Sally VISE HAND Unavailable Unavailable [place], L Sally VISE HAND Unavailable Unavailable [place], L Sally VISE HAND Unavailable Unavailable [place], L Sally VISE HAND Unavailable Unavailable [place], L Sally VISE HAND Unavailable Unavailable Nickolas Cobb MD Unavailable Unavailable Nickolas Cobb MD Unavailable Unavailable Nickolas Cobb MD Unavailable Unavailable Nickolas Cobb MD Unavailable Unavailable Nickolas Cobb MD Unavailable Unavailable Nickolas Cobb MD Unavailable Unavailable Nickolas Cobb MD Unavailable Unavailable Nickolas Cobb MD Unavailable Unavailable Nickolas Cobb MD Unavailable Unavailable Nickolas Cobb MD Unavailable Unavailable Nickolas Cobb MD Unavailable Unavailable Nickolas Cobb MD Unavailable Unavailable Nickolas Cobb MD Unavailable Unavailable Nickolas Cobb MD Unavailable Unavailable Nickolas Cobb MD Unavailable Unavailable Nickolas Cobb MD Unavailable Unavailable Nickolas Cobb MD Unavailable Unavailable Nickolas Cobb MD Unavailable Unavailable Nickolas Cobb MD Unavailable Unavailable Nickolas Cobb MD Unavailable Unavailable Nickolas Cobb MD Unavailable Unavailable Nickolas Cobb MD Unavailable Unavailable Nickolas Cobb MD Unavailable Unavailable Nickolas Cobb MD Unavailable Unavailable Nickolas Cobb MD Unavailable Unavailable Nickolas Cobb MD Unavailable Unavailable Nickolas Cobb MD Unavailable Unavailable Nickolas Cobb MD Unavailable Unavailable McCNickolas feldman MD Unavailable Unavailable McCNickolas feldman MD Unavailable Unavailable McCNickolas feldman MD Unavailable Unavailable McCNickolas feldman MD Unavailable Unavailable McCNickolas feldman MD Unavailable Unavailable McConnNickolas MD Unavailable Unavailable Ismael, Dylon Peoples MD Unavailable Unavailable Ismael, Dylon Peoples MD Unavailable Unavailable Ismael, Dylon Peoples MD Unavailable Unavailable Ismael, Dylon Peoples MD Unavailable Unavailable Ismael, Dylon Peoples MD Unavailable Unavailable Ismael, Dylon Peoples MD Unavailable Unavailable Ismael, Dylon Peoples MD Unavailable Unavailable Ismael, E Harsh BURNETT Unavailable Unavailable Ismael, Dylon Peoples MD Unavailable Unavailable Ismael, Dylon Peoples MD Unavailable Unavailable Ismael, Dylon Peoples MD Unavailable Unavailable Ismael, Dylon Peoples MD Unavailable Unavailable Ismael, Dylon Peoples MD Unavailable Unavailable Ismael, Dylon Peoples MD Unavailable Unavailable Ismael, Dylon Peoples MD Unavailable Unavailable Ismael, Dylon Peoples MD Unavailable Unavailable Ismael, Dylon Peoples MD Unavailable Unavailable Ismael, Dylon Peoples MD Unavailable Unavailable IsmaelDylon MD Unavailable Unavailable Ismael, Dylon Peoples MD Unavailable Unavailable Ismael, Dylon Peoples MD Unavailable Unavailable Ismael, Dylon Peoples MD Unavailable Unavailable Ismael, Dylon Peoples MD Unavailable Unavailable Ismael, Dylon Peoples MD Unavailable Unavailable Ismael, Dylon Peoples MD Unavailable Unavailable Ismael, Dylon Peoples MD Unavailable Unavailable Ismael, Dylon Peoples MD Unavailable Unavailable Ismael, Dylon Peoples MD Unavailable Unavailable Ismael, Dylon Peoples MD Unavailable Unavailable Ismael, Dylon Peoples MD Unavailable Unavailable Ismael, Dylon Peoples MD Unavailable Unavailable Ismael, Dylon Peoples MD Unavailable Unavailable Ismael, Dylon Peoples MD Unavailable Unavailable Ismael, Dylon Peoples MD Unavailable Unavailable Ismael, Dylon Peoples MD Unavailable Unavailable Ismael, Dylon Peoples MD Unavailable Unavailable IsmaelDylon MD Unavailable Unavailable Ismael, Dylon Peoples MD Unavailable Unavailable Ismael, Dylon Peoples MD Unavailable Unavailable Ismael, Dylon Peoples MD Unavailable Unavailable Ismael, Dylon Peoples MD Unavailable Unavailable Ismael, Dylon Peoples MD Unavailable Unavailable IsmaelDylon MD Unavailable Unavailable Ismael, Dylon Peoples MD Unavailable Unavailable IsmaelDylon MD Unavailable Unavailable IsmaelDylon MD Unavailable Unavailable Ismael, Dylon Peoples MD Unavailable Unavailable Ismael, Dylon Peoples MD Unavailable Unavailable Ismael, Dylon Peoples MD Unavailable Unavailable Ismael, Dylon Peoples MD Unavailable Unavailable IsmaelDylon MD Unavailable Unavailable Ismael, Dylon Peoples MD Unavailable Unavailable Ismael, Dylon Peoples MD Unavailable Unavailable IsmaelDylon MD Unavailable Unavailable Ismael, Dylon Peoples MD Unavailable Unavailable IsmaelDylon MD Unavailable Unavailable Ismael, Dylon Peoples MD Unavailable Unavailable Dylon Guevara MD Unavailable Unavailable Dylon Guevara MD Unavailable Unavailable Dylon Guevara MD Unavailable Unavailable Mandappa, Cinthya CASAC Unavailable Unavailable Mandappa, Cinthya CASAC Unavailable Unavailable Mandappa, Cinthya CASAC Unavailable Unavailable Mandappa, Cinthya CASAC Unavailable Unavailable Mollison, Komal Oh MD Unavailable Unavailable Mollison, Komal Oh MD Unavailable Unavailable Mollison, Komal Oh MD Unavailable Unavailable Mollison, Komal Oh MD Unavailable Unavailable Mollison, Komal Oh MD Unavailable Unavailable Mollison, Komal Oh MD Unavailable Unavailable Mollison, Komal Oh MD Unavailable Unavailable Mollison, Komal Oh MD Unavailable Unavailable Mollison, Komal Oh MD Unavailable Unavailable Mollison, Komal Oh MD Unavailable Unavailable Mollison, Komal Oh MD Unavailable Unavailable Mollison, Komal Oh MD Unavailable Unavailable Mollison, Komal Oh MD Unavailable Unavailable Mollison, Komal Oh MD Unavailable Unavailable Mollison, Komal Oh MD Unavailable Unavailable Mollison, Komal Oh MD Unavailable Unavailable Mollison, Komal Oh MD Unavailable Unavailable Mollison, Komal Oh MD Unavailable Unavailable Mollison, Komal Oh MD Unavailable Unavailable Mollison, Komal Oh MD Unavailable Unavailable Mollison, Komal Oh MD Unavailable Unavailable Mollison, Komal Oh MD Unavailable Unavailable Mollison, Komal Oh MD Unavailable Unavailable Mollison, Komal Oh MD Unavailable Unavailable Mollison, Komal Oh MD Unavailable Unavailable Mollison, Komal Oh MD Unavailable Unavailable Mollison, Komal Oh MD Unavailable Unavailable Mollison, Komal Oh MD Unavailable Unavailable Mollison, Komal Oh MD Unavailable Unavailable Mollison, Komal Oh MD Unavailable Unavailable LAROCK, J JOCE VISE HAND Unavailable Unavailable LAROCK, J JOCE VISE HAND Unavailable Unavailable LAROCK, J JOCE VISE HAND Unavailable Unavailable LAROCK, J JOCE VISE HAND Unavailable Unavailable LAROCK, J JOCE VISE HAND Unavailable Unavailable LAROCK, J JOCE VISE HAND Unavailable Unavailable LAROCK, J JOCE VISE HAND Unavailable Unavailable LAROCK, J JOCE VISE HAND Unavailable Unavailable LAROCK, J JOCE VISE HAND Unavailable Unavailable LAROCK, J JOCE VISE HAND Unavailable Unavailable LAROCK, J JOCE VISE HAND Unavailable Unavailable LAROCK, J JOCE VISE HAND Unavailable Unavailable LAROCK, J JOEC VISE HAND Unavailable Unavailable LAROCK, J JOCE VISE HAND Unavailable Unavailable LAROCK, J JOCE VISE HAND Unavailable Unavailable LAROCK, J JOCE VISE HAND Unavailable Unavailable LAROCK, J JOCE VISE HAND Unavailable Unavailable LAROCK, J JOCE VISE HAND Unavailable Unavailable LAROCK, J JOCE VISE HAND Unavailable Unavailable LAROCK, J JOCE VISE HAND Unavailable Unavailable LAROCK, J JOCE VISE HAND Unavailable Unavailable LAROCK, J JOCE VISE HAND Unavailable Unavailable Leong, L Elma PA Unavailable Unavailable Leong, L Elma PA Unavailable Unavailable Leong, L Elma PA Unavailable Unavailable Leong, L Elma PA Unavailable Unavailable Leong, L Elma PA Unavailable Unavailable Leong, L Elma PA Unavailable Unavailable Leong, L Elma PA Unavailable Unavailable Leong, L Elma PA Unavailable Unavailable Leong, L Elma PA Unavailable Unavailable Leong, L Elma PA Unavailable Unavailable Leong, L Elma PA Unavailable Unavailable Leong, L Elma PA Unavailable Unavailable Leong, L Elma PA Unavailable Unavailable Leong, L Elma PA Unavailable Unavailable Leong, L Elma PA Unavailable Unavailable Leong, L Elma PA Unavailable Unavailable Leong, L Elma PA Unavailable Unavailable Leong, L Elma PA Unavailable Unavailable Leong, L Elma PA Unavailable Unavailable Leong, L Elma PA Unavailable Unavailable Leong, L Elma PA Unavailable Unavailable Leong, L Emla PA Unavailable Unavailable Leong, L Elma PA Unavailable Unavailable Leong, L Elma PA Unavailable Unavailable Leong, L Elma PA Unavailable Unavailable Leong, L Elma PA Unavailable Unavailable Leong, L Elma PA Unavailable Unavailable Leong, L Elma PA Unavailable Unavailable Leong, L Elma PA Unavailable Unavailable Leong, L Elma PA Unavailable Unavailable Leong, L Elma PA Unavailable Unavailable Leong, L Elma PA Unavailable Unavailable Leong, L Elma PA Unavailable Unavailable Leong, L Elma PA Unavailable Unavailable Leong, L Elma PA Unavailable Unavailable Leong, L Elma PA Unavailable Unavailable Leong, L Elma PA Unavailable Unavailable Leong, L Elma PA Unavailable Unavailable Leong, L Elma PA Unavailable Unavailable Profetto, A Tomas SUPERVISOR WRAPPING ROOM Unavailable Unavailable Profetto, A Tomas SUPERVISOR WRAPPING ROOM Unavailable Unavailable Profetto, A Tomas SUPERVISOR WRAPPING ROOM Unavailable Unavailable Profetto, A Tomas SUPERVISOR WRAPPING ROOM Unavailable Unavailable Profetto, A Tomas SUPERVISOR WRAPPING ROOM Unavailable Unavailable Profetto, A Tomas SUPERVISOR WRAPPING ROOM Unavailable Unavailable Profetto, A Tomas SUPERVISOR WRAPPING ROOM Unavailable Unavailable Profetto, A Tomas SUPERVISOR WRAPPING ROOM Unavailable Unavailable Profetto, A Tomas SUPERVISOR WRAPPING ROOM Unavailable Unavailable Profetto, A Tomas SUPERVISOR WRAPPING ROOM Unavailable Unavailable Profetto, A Tomas SUPERVISOR WRAPPING ROOM Unavailable Unavailable Profetto, A Tomas SUPERVISOR WRAPPING ROOM Unavailable Unavailable Profetto, A Tomas SUPERVISOR WRAPPING ROOM Unavailable Unavailable Profetto, A Tomas SUPERVISOR WRAPPING ROOM Unavailable Unavailable Profetto, A Tomas SUPERVISOR WRAPPING ROOM Unavailable Unavailable Profetto, A Tomas SUPERVISOR WRAPPING ROOM Unavailable Unavailable Profetto, A Tomas SUPERVISOR WRAPPING ROOM Unavailable Unavailable Profetto, A Tomas SUPERVISOR WRAPPING ROOM Unavailable Unavailable Profetto, A Tomas SUPERVISOR WRAPPING ROOM Unavailable Unavailable Profetto, A Tomas SUPERVISOR WRAPPING ROOM Unavailable Unavailable Profetto, A Tomas SUPERVISOR WRAPPING ROOM Unavailable Unavailable Profetto, A Tomas SUPERVISOR WRAPPING ROOM Unavailable Unavailable Profetto, A Tomas SUPERVISOR WRAPPING ROOM Unavailable Unavailable Profetto, A Tomas SUPERVISOR WRAPPING ROOM Unavailable Unavailable Profetto, A Tomas SUPERVISOR WRAPPING ROOM Unavailable Unavailable Profetto, A Tomas SUPERVISOR WRAPPING ROOM Unavailable Unavailable Profetto, A Tomas SUPERVISOR WRAPPING ROOM Unavailable Unavailable Profetto, A Tomas SUPERVISOR WRAPPING ROOM Unavailable Unavailable Profetto, A Tomas SUPERVISOR WRAPPING ROOM Unavailable Unavailable Profetto, A Tomas SUPERVISOR WRAPPING ROOM Unavailable Unavailable Profetto, A Tomas SUPERVISOR WRAPPING ROOM Unavailable Unavailable Re-disclosure Warning The records that you are about to access may contain information from federally-assisted alcohol or drug abuse programs. If such information is present, then the following federally mandated warning applies: This information has been disclosed to you from records protected by federal confidentiality rules (42 CFR part 2). The federal rules prohibit you from making any further disclosure of this information unless further disclosure is expressly permitted by the written consent of the person to whom it pertains or as otherwise permitted by 42 CFR part 2. A general authorization for the release of medical or other information is NOT sufficient for this purpose. The Federal rules restrict any use of the information to criminally investigate or prosecute any alcohol or drug abuse patient.The records that you are about to access may contain highly sensitive health information, the redisclosure of which is protected by Article 27-F of the [facility] Public Health law. If you continue you may have access to information: Regarding HIV / AIDS; Provided by facilities licensed or operated by the [facility] Office of Mental Health; or Provided by the [facility] Office for People With Developmental Disabilities. If such information is present, then the following [facility] mandated warning applies: This information has been disclosed to you from confidential records which are protected by state law. State law prohibits you from making any further disclosure of this information without the specific written consent of the person to whom it pertains, or as otherwise permitted by law. Any unauthorized further disclosure in violation of state law may result in a fine or skilled nursing sentence or both. A general authorization for the release of medical or other information is NOT sufficient authorization for further disc losure. Family History Family Member Name Family Member Gender Family Member Status Date o f Status Description Data Source(s) Unknown Male Problem MED[facility] ([facility] Encounters Encounter Providers Location Date Indications Data Source(s ) Outpatient Attender: Tomas Hastings FNPReferrer: Cinthya BETTS 06/23/2021 09:09:24 AM EDT [facility] Outpatient Attender: Adriano Blair/Monalisa/Fuentes/Re indl 06/16/2021 08:45:00 AM EDT [facility] ([facility] [place] [address] [address] 06/08/2021 12:00:00 AM EDT eCW1 ([facility]) [place]patient [address] [facility] [place] [address] 06/02/2021 12:00:00 AM EDT eCW1 ([facility]) [place] [address] [address] 05/23/2021 12:00:00 AM EDT eCW1 ([facility]) Outpatient Attender: Adriano Blair/Monalisa/Fuentes/Re indl 05/05/2021 09:00:00 AM EDT [facility] ([facility]) Outpatient Attender: Adriano Blair/Monalisa/Fuentes/Re indl 04/14/2021 11:00:00 AM EDT [facility] ([facility]) Outpatient Attender: Giovanni BUTLER 04/10/20 05:20:35 PM EDT - 04/10/2021 05:53:09 PM EDT [facility] ([facility] ) Outpatient Attender: Tomas FIERROPReferrer: Cinthya BETTS 04/10/2021 09:45:07 AM EDT [facility] [place] [address] [address] 03/20/2021 12:00:00 AM EDT eCW1 ([facility]) [place] [address] [address] 03/13/2021 12:00:00 AM EDT eCW1 ([facility]) [place] [address] [address] 03/13/2021 12:00:00 AM EDT eCW1 ([facility]) [place] [address] [address] 03/06/2021 12:00:00 AM EDT eCW1 ([facility]) [place] [address] [address] 02/08/2021 12:00:00 AM EDT eCW1 ([facility]) [place] [address] [address] 02/07/2021 12:00:00 AM EDT eCW1 ([facility]) Recurring Patient Referrer: Cinthya BETTS 02/06/2021 09:28:09 AM EDT [facility] Outpatient Attender: Tomas Hastings FNPReferrer: Harsh Guevara MD 02/06/2021 09:26:58 AM EDT [facility] Outpatient Attender: JOCE AN NP 01/24 05:38:42 PM EDT - 02/05/2021 06:13:13 PM EDT [facility] ([facility] ) [place] [address] [address] 01/18/2021 12:00:00 AM EDT eCW1 ([facility]) Outpatient Attender: Sally Blair/Monalisa/Fuentes/Reindl 01/17/2021 08:30:00 AM EDT [facility] ([facility]) [place] [address] [address] 01/12/2021 12:00:00 AM EDT eCW1 ([facility]) Outpatient Attender: Elma HARRIS.ARLEN-STEVEN.ARLEN 07:45:19 AM EDT - 01/11/2021 08:37:08 AM EDT [facility] [place] [address] [address] 01/04/2021 12:00:00 AM EDT eCW1 ([facility]) [place] [address] [address] 12/15/2020 12:00:00 AM EDT eCW1 ([facility]) [place] [address] [address] 12/08/2020 12:00:00 AM EDT eCW1 ([facility]) [place] [address] [address] 12/05/2020 12:00:00 AM EDT eCW1 ([facility]) Outpatient Attender: Tomas Hastings FNPReferrer: Harsh Guevara MD 11/18/2020 01:09:00 PM EDT [facility] [place] [address] [address] 11/17/2020 12:00:00 AM EDT eCW1 ([facility]) [place]patient [address] [address] 11/17/2020 12:00:00 AM EDT eCW1 ([facility]) [place] [address] [address] 10/20/2020 12:00:00 AM EST eCW1 ([facility]) [place] [address] [address] 10/07/2020 12:00:00 AM EST eCW1 ([facility]) Outpatient Attender: Tomas Hastings FNPReferrer: Harsh Guevara MD 09/14/2020 10:34:41 AM EST [facility] Unknown [address] [address] 09/14/2020 12:00:00 AM EST eCW1 ([facility]) [place] [address] [address] 09/05/2020 12:00:00 AM EST eCW1 ([facility]) Unknown [address] [facility] [place] [address] 09/05/2020 12:00:00 AM EST eCW1 ([facility]) Unknown [address] [facility] [place] [address] 09/02/2020 12:00:00 AM EST eCW1 ([facility]) Unknown [address] [facility] [place] [address] 08/22/2020 12:00:00 AM EST eCW1 ([facility]) Outpatient [address] [facility] [place] [address] 08/16/2020 12:00:00 AM EST eCW1 ([facility]) Unknown [address] [facility] [place] [address] 08/16/2020 12:00:00 AM EST eCW1 ([facility]) Outpatient [address] [facility] [place] [address] 08/15/2020 12:00:00 AM EST eCW1 ([facility]) Unknown [address] [facility] [place] [address] 08/12/2020 12:00:00 AM EST eCW1 ([facility]) (PN RF) Pain Radiofrequency [address] [place] [address] 08/03/2020 12:00:00 AM EST eCW1 ([facility]) Unknown [address] [facility] [place] [address] 08/02/2020 12:00:00 AM EST eCW1 ([facility]) Outpatient Attender: Harsh IVANeferrer: Harsh Guevara MD 08/01/2020 08:31:16 PM EST [facility] Outpatient [address] [facility] [place] [address] 07/20/2020 12:00:00 AM EST eCW1 ([facility]) Unknown [address] [facility] [id number] 07/19/2020 12:00:00 AM EST eCW1 ([facility]) Outpatient [address] [facility] [id number] 07/19/2020 12:00:00 AM EST eCW1 ([facility]) Unknown [address] [facility] [address] 07/18/2020 12:00:00 AM EST eCW1 ([facility]) Outpatient Attender: Elma HARRIS.ARLEN-SJP.ARLEN 12:00:00 AM EST - 07/13/2020 01:46:16 PM EST [facility] (PN Proc 45) Pain Procedure 45 [address] [place] [address] 07/05/2020 12:00:00 AM EST eCW1 ([facility]) Unknown [address] [facility] [address] 07/04/2020 12:00:00 AM EST eCW1 ([facility]) Outpatient [address] [facility] [address] 06/20/2020 12:00:00 AM EDT eCW1 ([facility]) Outpatient [address] [facility] [address] 06/14/2020 12:00:00 AM EDT eCW1 ([facility]) Outpatient Attender: Tomas Hastings FNPReferrer: Harsh Guevara MD 06/10/2020 01:05:04 PM EDT [facility] (PN RF) Pain Radiofrequency [address] [place] [address] 05/31/2020 12:00:00 AM EDT eCW1 ([facility]) Immunizations Vaccine Date Status Description Data Source(s) COVID-19 VACCINE Moderna 06/23/2021 12:00:00 AM EDT completed [employer] Vaccine Series Complete: YESThis Data wa s Submitted to [facility] Via [employer]. influenza, recombinant, quadrIvalent,injectable, prese rvative free 06/08/2021 06:36:00 PM EDT completed eCW1 ([facility]) 03/20/2021 08:42:00 AM EDT completed e CW1 ([facility]) 03/20/2021 08:42:00 AM EDT completed e CW1 ([facility]) 03/20/2021 08:42:00 AM EDT completed e CW1 ([facility]) 03/20/2021 08:42:00 AM EDT completed e CW1 ([facility]) Moderna #2 dose COVID-19 (given elsewhere) SARSCOV2 VA C 100MCG/0.5ML IM 11/25/2020 08:09:00 AM EDT completed eCW1 ([facility]) Moderna #2 dose COVID-19(given elsewhere) SARSCOV2 VAC 100MCG/0.5ML IM 11/25/2020 08:09:00 AM EDT completed eCW1 ([facility]) Moderna #2 dose COVID-19(given elsewhere) SARSCOV2 VAC 100MCG/0.5ML IM 11/25/2020 08:09:00 AM EDT completed eCW1 ([facility]) Moderna #2 dose COVID-19(given elsewhere) SARSCOV2 VAC 100MCG/0.5ML IM 11/25/2020 08:09:00 AM EDT completed eCW1 ([facility]) Moderna #2 dose COVID-19(given elsewhere) SARSCOV2 VAC 100MCG/0.5ML IM 11/25/2020 08:09:00 AM EDT completed eCW1 ([facility]) Moderna #2 dose COVID-19(given elsewhere) SARSCOV2 VAC 100MCG/0.5ML IM 11/25/2020 08:09:00 AM EDT completed eCW1 ([facility]) Moderna #2 dose COVID-19 (given elsewhere) SARSCOV2 VA C 100MCG/0.5ML IM 11/25/2020 08:09:00 AM EDT completed eCW1 ([facility]) Moderna #2 dose COVID-19(given elsewhere) SARSCOV2 VAC 100MCG/0.5ML IM 11/25/2020 08:09:00 AM EDT completed eCW1 ([facility]) Moderna #2 dose COVID-19(given elsewhere) SARSCOV2 VAC 100MCG/0.5ML IM 11/25/2020 08:09:00 AM EDT completed eCW1 ([facility]) Moderna #2 dose COVID-19(given elsewhere) SARSCOV2 VAC 100MCG/0.5ML IM 11/25/2020 08:09:00 AM EDT completed eCW1 ([facility]) Moderna #2 dose COVID-19(given elsewhere) SARSCOV2 VAC 100MCG/0.5ML IM 11/25/2020 08:09:00 AM EDT completed eCW1 ([facility]) COVID-19 VACCINE Moderna 11/25/2020 12:00:00 AM EDT completed [facility] Vaccine Series Complete: YESThis Data wa s Submitted to [facility] Via [facility]. 11/17/2020 08:11:00 AM EDT completed e CW1 ([facility]) 11/17/2020 08:11:00 AM EDT completed e CW1 ([facility]) 11/17/2020 08:11:00 AM EDT completed e CW1 ([facility]) 11/17/2020 08:11:00 AM EDT completed e CW1 ([facility]) 11/17/2020 08:11:00 AM EDT completed e CW1 ([facility]) 11/17/2020 08:11:00 AM EDT completed e CW1 ([facility]) 11/17/2020 08:11:00 AM EDT completed e CW1 ([facility]) 11/17/2020 08:11:00 AM EDT completed e CW1 ([facility]) 11/17/2020 08:11:00 AM EDT completed e CW1 ([facility]) 11/17/2020 08:11:00 AM EDT completed e CW1 ([facility]) 11/17/2020 08:11:00 AM EDT completed e CW1 ([facility]) 11/17/2020 08:11:00 AM EDT completed e CW1 ([facility]) 11/17/2020 08:11:00 AM EDT completed e CW1 ([facility]) 11/17/2020 08:11:00 AM EDT completed e CW1 ([facility]) 11/17/2020 08:11:00 AM EDT completed e CW1 ([facility]) 11/17/2020 08:11:00 AM EDT completed e CW1 ([facility]) 11/17/2020 08:11:00 AM EDT completed e CW1 ([facility]) 11/17/2020 08:11:00 AM EDT completed e CW1 ([facility]) Moderna #1 dose COVID-19 (given elsewhere) SARSCOV2 VA C 100MCG/0.5ML IM 10/28/2020 08:08:00 AM EST completed eCW1 ([facility]) Moderna #1 dose COVID-19(given elsewhere) SARSCOV2 VAC 100MCG/0.5ML IM 10/28/2020 08:08:00 AM EST completed eCW1 ([facility]) Moderna #1 dose COVID-19(given elsewhere) SARSCOV2 VAC 100MCG/0.5ML IM 10/28/2020 08:08:00 AM EST completed eCW1 ([facility]) Moderna #1 dose COVID-19(given elsewhere) SARSCOV2 VAC 100MCG/0.5ML IM 10/28/2020 08:08:00 AM EST completed eCW1 ([facility]) Moderna #1 dose COVID-19(given elsewhere) SARSCOV2 VAC 100MCG/0.5ML IM 10/28/2020 08:08:00 AM EST completed eCW1 ([facility]) Moderna #1 dose COVID-19(given elsewhere) SARSCOV2 VAC 100MCG/0.5ML IM 10/28/2020 08:08:00 AM EST completed eCW1 ([facility]) Moderna #1 dose COVID-19 (given elsewhere) SARSCOV2 VA C 100MCG/0.5ML IM 10/28/2020 08:08:00 AM EST completed eCW1 ([facility]) Moderna #1 dose COVID-19(given elsewhere) SARSCOV2 VAC 100MCG/0.5ML IM 10/28/2020 08:08:00 AM EST completed eCW1 ([facility]) Moderna #1 dose COVID-19(given elsewhere) SARSCOV2 VAC 100MCG/0.5ML IM 10/28/2020 08:08:00 AM EST completed eCW1 ([facility]) Moderna #1 dose COVID-19(given elsewhere) SARSCOV2 VAC 100MCG/0.5ML IM 10/28/2020 08:08:00 AM EST completed eCW1 ([facility]) Moderna #1 dose COVID-19(given elsewhere) SARSCOV2 VAC 100MCG/0.5ML IM 10/28/2020 08:08:00 AM EST completed eCW1 ([facility]) COVID-19 VACCINE Moderna 10/28/2020 12:00:00 AM EST completed [facility] Vaccine Series Complete: NOThis Data was Submitted to [facility] Via Station [employer]. 08/15/2020 01:03:00 PM EST completed e CW1 ([facility]) 08/15/2020 01:03:00 PM EST completed e CW1 ([facility]) 08/15/2020 01:03:00 PM EST completed e CW1 ([facility]) 08/15/2020 01:03:00 PM EST completed e CW1 ([facility]) 08/15/2020 01:03:00 PM EST completed e CW1 ([facility]) 08/15/2020 01:03:00 PM EST completed e CW1 ([facility]) 08/15/2020 01:03:00 PM EST completed e CW1 ([facility]) 08/15/2020 01:03:00 PM EST completed e CW1 ([facility]) 08/15/2020 01:03:00 PM EST completed e CW1 ([facility]) 08/15/2020 01:03:00 PM EST completed e CW1 ([facility]) 08/15/2020 01:03:00 PM EST completed e CW1 ([facility]) 08/15/2020 01:03:00 PM EST completed e CW1 ([facility]) 08/15/2020 01:03:00 PM EST completed e CW1 ([facility]) 08/15/2020 01:03:00 PM EST completed e CW1 ([facility]) 08/15/2020 01:03:00 PM EST completed e CW1 ([facility]) 08/15/2020 01:03:00 PM EST completed e CW1 ([facility]) 08/15/2020 01:03:00 PM EST completed e CW1 ([facility]) 08/15/2020 01:03:00 PM EST completed e CW1 ([facility]) 08/15/2020 01:03:00 PM EST completed e CW1 ([facility]) 08/15/2020 01:03:00 PM EST completed e CW1 ([facility]) 08/15/2020 01:03:00 PM EST completed e CW1 ([facility]) 08/15/2020 01:03:00 PM EST completed e CW1 ([facility]) 08/15/2020 01:03:00 PM EST completed e CW1 ([facility]) 08/15/2020 01:03:00 PM EST completed e CW1 ([facility]) 08/15/2020 01:03:00 PM EST completed e CW1 ([facility]) 08/15/2020 01:03:00 PM EST completed e CW1 ([facility]) 08/15/2020 01:03:00 PM EST completed e CW1 ([facility]) 08/15/2020 01:03:00 PM EST completed e CW1 ([facility]) 08/15/2020 01:03:00 PM EST completed e CW1 ([facility]) influenza, recombinant, quadrIvalent,injectable, prese rvative free 07/20/2020 04:39:00 PM EST completed eCW1 ([facility]) influenza, recombinant, quadrIvalent,injectable, prese rvative free 07/20/2020 04:39:00 PM EST completed eCW1 ([facility]) influenza, recombinant, quadrIvalent,injectable, prese rvative free 07/20/2020 04:39:00 PM EST completed eCW1 ([facility]) influenza, recombinant, quadrIvalent,injectable, prese rvative free 07/20/2020 04:39:00 PM EST completed eCW1 ([facility]) influenza, recombinant, quadrIvalent,injectable, prese rvative free 07/20/2020 04:39:00 PM EST completed eCW1 ([facility]) influenza, recombinant, quadrIvalent,injectable, prese rvative free 07/20/2020 04:39:00 PM EST completed eCW1 ([facility]) influenza, recombinant, quadrIvalent,injectable, prese rvative free 07/20/2020 04:39:00 PM EST completed eCW1 ([facility]) influenza, recombinant, quadrIvalent,injectable, prese rvative free 07/20/2020 04:39:00 PM EST completed eCW1 ([facility]) influenza, recombinant, quadrIvalent,injectable, prese rvative free 07/20/2020 04:39:00 PM EST completed eCW1 ([facility]) influenza, recombinant, quadrIvalent,injectable, prese rvative free 07/20/2020 04:39:00 PM EST completed eCW1 ([facility]) influenza, recombinant, quadrIvalent,injectable, prese rvative free 07/20/2020 04:39:00 PM EST completed eCW1 ([facility]) influenza, recombinant, quadrIvalent,injectable, prese rvative free 07/20/2020 04:39:00 PM EST completed eCW1 ([facility]) influenza, recombinant, quadrIvalent,injectable, prese rvative free 07/20/2020 04:39:00 PM EST completed eCW1 ([facility]) influenza, recombinant, quadrIvalent,injectable, prese rvative free 07/20/2020 04:39:00 PM EST completed eCW1 ([facility]) influenza, recombinant, quadrIvalent,injectable, prese rvative free 07/20/2020 04:39:00 PM EST completed eCW1 ([facility]) influenza, recombinant, quadrIvalent,injectable, prese rvative free 07/20/2020 04:39:00 PM EST completed eCW1 ([facility]) influenza, recombinant, quadrIvalent,injectable, prese rvative free 07/20/2020 04:39:00 PM EST completed eCW1 ([facility]) influenza, recombinant, quadrIvalent,injectable, prese rvative free 07/20/2020 04:39:00 PM EST completed eCW1 ([facility]) influenza, recombinant, quadrIvalent,injectable, prese rvative free 07/20/2020 04:39:00 PM EST completed eCW1 ([facility]) influenza, recombinant, quadrIvalent,injectable, prese rvative free 07/20/2020 04:39:00 PM EST completed eCW1 ([facility]) influenza, recombinant, quadrIvalent,injectable, prese rvative free 07/20/2020 04:39:00 PM EST completed eCW1 ([facility]) influenza, recombinant, quadrIvalent,injectable, prese rvative free 07/20/2020 04:39:00 PM EST completed eCW1 ([facility]) influenza, recombinant, quadrIvalent,injectable, prese rvative free 07/20/2020 04:39:00 PM EST completed eCW1 ([facility]) influenza, recombinant, quadrIvalent,injectable, prese rvative free 07/20/2020 04:39:00 PM EST completed eCW1 ([facility]) influenza, recombinant, quadrIvalent,injectable, prese rvative free 07/20/2020 04:39:00 PM EST completed eCW1 ([facility]) influenza, recombinant, quadrIvalent,injectable, prese rvative free 07/20/2020 04:39:00 PM EST completed eCW1 ([facility]) influenza, recombinant, quadrIvalent,injectable, prese rvative free 07/20/2020 04:39:00 PM EST completed eCW1 ([facility]) influenza, recombinant, quadrIvalent,injectable, prese rvative free 07/20/2020 04:39:00 PM EST completed eCW1 ([facility]) influenza, recombinant, quadrIvalent,injectable, prese rvative free 07/20/2020 04:39:00 PM EST completed eCW1 ([facility]) influenza, recombinant, quadrIvalent,injectable, prese rvative free 07/20/2020 04:39:00 PM EST completed eCW1 ([facility]) influenza, recombinant, quadrIvalent,injectable, prese rvative free 07/20/2020 04:39:00 PM EST completed eCW1 ([facility]) influenza, recombinant, quadrIvalent,injectable, prese rvative free 07/20/2020 04:39:00 PM EST completed eCW1 ([facility]) influenza, recombinant, quadrIvalent,injectable, prese rvative free 07/20/2020 04:39:00 PM EST completed eCW1 ([facility]) influenza, recombinant, quadrIvalent,injectable, prese rvative free 07/20/2020 04:39:00 PM EST completed eCW1 ([facility]) 06/20/2020 05:27:00 PM EDT completed e CW1 ([facility]) 06/20/2020 05:27:00 PM EDT completed e CW1 ([facility]) 06/20/2020 05:27:00 PM EDT completed e CW1 ([facility]) 06/20/2020 05:27:00 PM EDT completed e CW1 ([facility]) 06/20/2020 05:27:00 PM EDT completed e CW1 ([facility]) 06/20/2020 05:27:00 PM EDT completed e CW1 ([facility]) 06/20/2020 05:27:00 PM EDT completed e CW1 ([facility]) 06/20/2020 05:27:00 PM EDT completed e CW1 ([facility]) 06/20/2020 05:27:00 PM EDT completed e CW1 ([facility]) 06/20/2020 05:27:00 PM EDT completed e CW1 ([facility]) 06/20/2020 05:27:00 PM EDT completed e CW1 ([facility]) 06/20/2020 05:27:00 PM EDT completed e CW1 ([facility]) 06/20/2020 05:27:00 PM EDT completed e CW1 ([facility]) 06/20/2020 05:27:00 PM EDT completed e CW1 ([facility]) 06/20/2020 05:27:00 PM EDT completed e CW1 ([facility]) 06/20/2020 05:27:00 PM EDT completed e CW1 ([facility]) 06/20/2020 05:27:00 PM EDT completed e CW1 ([facility]) 06/20/2020 05:27:00 PM EDT completed e CW1 ([facility]) 06/20/2020 05:27:00 PM EDT completed e CW1 ([facility]) 06/20/2020 05:27:00 PM EDT completed e CW1 ([facility]) 06/20/2020 05:27:00 PM EDT completed e CW1 ([facility]) 06/20/2020 05:27:00 PM EDT completed e CW1 ([facility]) 06/20/2020 05:27:00 PM EDT completed e CW1 ([facility]) 06/20/2020 05:27:00 PM EDT completed e CW1 ([facility]) 06/20/2020 05:27:00 PM EDT completed e CW1 ([facility]) 06/20/2020 05:27:00 PM EDT completed e CW1 ([facility]) 06/20/2020 05:27:00 PM EDT completed e CW1 ([facility]) 06/20/2020 05:27:00 PM EDT completed e CW1 ([facility]) 06/20/2020 05:27:00 PM EDT completed e CW1 ([facility]) 06/20/2020 05:27:00 PM EDT completed e CW1 ([facility]) 06/20/2020 05:27:00 PM EDT completed e CW1 ([facility]) 06/20/2020 05:27:00 PM EDT completed e CW1 ([facility]) 06/20/2020 05:27:00 PM EDT completed e CW1 ([facility]) 06/20/2020 05:27:00 PM EDT completed e CW1 ([facility]) 06/20/2020 05:27:00 PM EDT completed e CW1 ([facility]) 06/20/2020 05:27:00 PM EDT completed e CW1 ([facility]) 06/20/2020 05:27:00 PM EDT completed e CW1 ([facility]) 06/20/2020 05:27:00 PM EDT completed e CW1 ([facility]) 06/20/2020 05:27:00 PM EDT completed e CW1 ([facility]) Medications Medication Brand Name Start Date Product Form Dose Route Admi nistrative Instructions Pharmacy Instructions Status Indications Reaction Description Data Source(s) May Have - UNK 02/08/2021 12:00:00 AM EDT active May Have - eCW1 ([facility]) May Have - UNK 02/08/2021 12:00:00 AM EDT active May Have - eCW1 ([facility]) May Have - UNK 02/08/2021 12:00:00 AM EDT active May Have - eCW1 ([facility]) May Have - UNK 02/08/2021 12:00:00 AM EDT active May Have - eCW1 ([facility]) May Have - UNK 02/08/2021 12:00:00 AM EDT active May Have - eCW1 ([facility]) May Have - UNK 02/08/2021 12:00:00 AM EDT active May Have - eCW1 ([facility]) May Have - UNK 02/08/2021 12:00:00 AM EDT active May Have - eCW1 ([facility]) May Have - UNK 02/08/2021 12:00:00 AM EDT active May Have - eCW1 ([facility]) May Have - UNK 02/08/2021 12:00:00 AM EDT active May Have - eCW1 ([facility]) May Have - UNK 02/08/2021 12:00:00 AM EDT active May Have - eCW1 ([facility]) May Have - UNK 02/08/2021 12:00:00 AM EDT active May Have - eCW1 ([facility]) May Have - UNK 02/08/2021 12:00:00 AM EDT active May Have - eCW1 ([facility]) May Have - UNK 02/08/2021 12:00:00 AM EDT active May Have - eCW1 ([facility]) May Have - UNK 02/08/2021 12:00:00 AM EDT active May Have - eCW1 ([facility]) May Have - UNK 02/08/2021 12:00:00 AM EDT active May Have - eCW1 ([facility]) May Have - UNK 02/08/2021 12:00:00 AM EDT active May Have - eCW1 ([facility]) Covid-19 vaccine, Unspecified 11/25/2020 12:00:00 AM EDT completed MEDENT ([facility]) Medication administered onsite Nystatin - Nystatin - 11/17/2020 12:00:00 AM EDT active Nystatin - eCW1 ([facility]) Nystatin - Nystatin - 11/17/2020 12:00:00 AM EDT active Nystatin - eCW1 ([facility]) Nystatin - Nystatin - 11/17/2020 12:00:00 AM EDT active Nystatin - eCW1 ([facility]) Nystatin - Nystatin - 11/17/2020 12:00:00 AM EDT active Nystatin - eCW1 ([facility]) Nystatin - Nystatin - 11/17/2020 12:00:00 AM EDT active Nystatin - eCW1 ([facility]) Nystatin - Nystatin - 11/17/2020 12:00:00 AM EDT active Nystatin - eCW1 ([facility]) Nystatin - Nystatin - 11/17/2020 12:00:00 AM EDT active Nystatin - eCW1 ([facility]) Nystatin - Nystatin - 11/17/2020 12:00:00 AM EDT active Nystatin - eCW1 ([facility]) Nystatin - Nystatin - 11/17/2020 12:00:00 AM EDT active Nystatin - eCW1 ([facility]) Nystatin - Nystatin - 11/17/2020 12:00:00 AM EDT active Nystatin - eCW1 ([facility]) Nystatin - Nystatin - 11/17/2020 12:00:00 AM EDT active Nystatin - eCW1 ([facility]) Nystatin - Nystatin - 11/17/2020 12:00:00 AM EDT active Nystatin - eCW1 ([facility]) Nystatin - Nystatin - 11/17/2020 12:00:00 AM EDT active Nystatin - eCW1 ([facility]) Nystatin - Nystatin - 11/17/2020 12:00:00 AM EDT active Nystatin - eCW1 ([facility]) Nystatin - Nystatin - 11/17/2020 12:00:00 AM EDT active Nystatin - eCW1 ([facility]) Nystatin - Nystatin - 11/17/2020 12:00:00 AM EDT active Nystatin - eCW1 ([facility]) Nystatin - Nystatin - 11/17/2020 12:00:00 AM EDT active Nystatin - eCW1 ([facility]) Nystatin - Nystatin - 11/17/2020 12:00:00 AM EDT active Nystatin - eCW1 ([facility]) Covid-19 vaccine, Unspecified 10/28/2020 12:00:00 AM EST completed MEDENT ([facility] ) Medication administered onsite rivaroxaban 20 MG Oral Tablet rivaroxaban (XARELTO) 20 MG TABS rivaroxaban (XARELTO) 20 MG TABS 09/14/2020 12:00:00 AM EST 20 mg Oral active Take 1 tablet (20 mg total) by mouth daily with dinner [facility] 24 HR Metformin hydrochloride 500 MG Ext ended Release Oral Tablet MetFORMIN HCl ER 500 MG MetFORMIN HCl ER 500 MG 09/02/2020 12:00:00 AM EST active MetFORMIN HCl ER 500 MG eCW1 ([facility]) 24 HR Metformin hydrochloride 500 MG Ext ended Release Oral Tablet MetFORMIN HCl ER 500 MG MetFORMIN HCl ER 500 MG 09/02/2020 12:00:00 AM EST active MetFORMIN HCl ER 500 MG eCW1 ([facility]) 24 HR Metformin hydrochloride 500 MG Ext ended Release Oral Tablet metFORMIN HCl ER 500 MG metFORMIN HCl ER 500 MG 09/02/2020 12:00:00 AM EST active metFORMIN HCl ER 500 MG eCW1 ([facility]) 24 HR Metformin hydrochloride 500 MG Ext ended Release Oral Tablet metFORMIN HCl ER 500 MG metFORMIN HCl ER 500 MG 09/02/2020 12:00:00 AM EST active metFORMIN HCl ER 500 MG eCW1 ([facility]) 24 HR Metformin hydrochloride 500 MG Ext ended Release Oral Tablet metFORMIN HCl ER 500 MG metFORMIN HCl ER 500 MG 09/02/2020 12:00:00 AM EST active metFORMIN HCl ER 500 MG eCW1 ([facility]) 24 HR Metformin hydrochloride 500 MG Ext ended Release Oral Tablet metFORMIN HCl ER 500 MG metFORMIN HCl ER 500 MG 09/02/2020 12:00:00 AM EST active metFORMIN HCl ER 500 MG eCW1 ([facility]) 24 HR Metformin hydrochloride 500 MG Ext ended Release Oral Tablet MetFORMIN HCl ER 500 MG MetFORMIN HCl ER 500 MG 09/02/2020 12:00:00 AM EST active MetFORMIN HCl ER 500 MG eCW1 ([facility]) 24 HR Metformin hydrochloride 500 MG Ext ended Release Oral Tablet MetFORMIN HCl ER 500 MG MetFORMIN HCl ER 500 MG 09/02/2020 12:00:00 AM EST active MetFORMIN HCl ER 500 MG eCW1 ([facility]) 24 HR Metformin hydrochloride 500 MG Ext ended Release Oral Tablet metFORMIN HCl ER 500 MG metFORMIN HCl ER 500 MG 09/02/2020 12:00:00 AM EST active metFORMIN HCl ER 500 MG eCW1 ([facility]) 24 HR Metformin hydrochloride 500 MG Ext ended Release Oral Tablet MetFORMIN HCl ER 500 MG MetFORMIN HCl ER 500 MG 09/02/2020 12:00:00 AM EST active MetFORMIN HCl ER 500 MG eCW1 ([facility]) 24 HR Metformin hydrochloride 500 MG Ext ended Release Oral Tablet MetFORMIN HCl ER 500 MG MetFORMIN HCl ER 500 MG 09/02/2020 12:00:00 AM EST active MetFORMIN HCl ER 500 MG eCW1 ([facility]) 24 HR Metformin hydrochloride 500 MG Ext ended Release Oral Tablet MetFORMIN HCl ER 500 MG MetFORMIN HCl ER 500 MG 09/02/2020 12:00:00 AM EST active MetFORMIN HCl ER 500 MG eCW1 ([facility]) 24 HR Metformin hydrochloride 500 MG Ext ended Release Oral Tablet metFORMIN HCl ER 500 MG metFORMIN HCl ER 500 MG 09/02/2020 12:00:00 AM EST active metFORMIN HCl ER 500 MG eCW1 ([facility]) 24 HR Metformin hydrochloride 500 MG Ext ended Release Oral Tablet MetFORMIN HCl ER 500 MG MetFORMIN HCl ER 500 MG 09/02/2020 12:00:00 AM EST active MetFORMIN HCl ER 500 MG eCW1 ([facility]) 24 HR Metformin hydrochloride 500 MG Ext ended Release Oral Tablet metFORMIN HCl ER 500 MG metFORMIN HCl ER 500 MG 09/02/2020 12:00:00 AM EST suspended metFORMIN HCl ER 500 MG eCW1 ([facility]) 24 HR Metformin hydrochloride 500 MG Ext ended Release Oral Tablet MetFORMIN HCl ER 500 MG MetFORMIN HCl ER 500 MG 09/02/2020 12:00:00 AM EST active MetFORMIN HCl ER 500 MG eCW1 ([facility]) 24 HR Metformin hydrochloride 500 MG Ext ended Release Oral Tablet metFORMIN HCl ER 500 MG metFORMIN HCl ER 500 MG 09/02/2020 12:00:00 AM EST active metFORMIN HCl ER 500 MG eCW1 ([facility]) 24 HR Metformin hydrochloride 500 MG Ext ended Release Oral Tablet MetFORMIN HCl ER 500 MG MetFORMIN HCl ER 500 MG 09/02/2020 12:00:00 AM EST active MetFORMIN HCl ER 500 MG eCW1 ([facility]) 24 HR Metformin hydrochloride 500 MG Ext ended Release Oral Tablet MetFORMIN HCl ER 500 MG MetFORMIN HCl ER 500 MG 09/02/2020 12:00:00 AM EST active MetFORMIN HCl ER 500 MG eCW1 ([facility]) 24 HR Metformin hydrochloride 500 MG Ext ended Release Oral Tablet MetFORMIN HCl ER 500 MG MetFORMIN HCl ER 500 MG 09/02/2020 12:00:00 AM EST active MetFORMIN HCl ER 500 MG eCW1 ([facility]) 24 HR Metformin hydrochloride 500 MG Ext ended Release Oral Tablet metFORMIN HCl ER 500 MG metFORMIN HCl ER 500 MG 09/02/2020 12:00:00 AM EST active metFORMIN HCl ER 500 MG eCW1 ([facility]) 24 HR Metformin hydrochloride 500 MG Ext ended Release Oral Tablet MetFORMIN HCl ER 500 MG MetFORMIN HCl ER 500 MG 09/02/2020 12:00:00 AM EST active MetFORMIN HCl ER 500 MG eCW1 ([facility]) 24 HR Metformin hydrochloride 500 MG Ext ended Release Oral Tablet MetFORMIN HCl ER 500 MG MetFORMIN HCl ER 500 MG 09/02/2020 12:00:00 AM EST active MetFORMIN HCl ER 500 MG eCW1 ([facility]) Accu-Chek [place] 1 UNK 08/16/2020 12:00:00 AM EST active Accu-Chek [place] 1 eCW1 ([facility]) Accu-Chek [place] 1 UNK 08/16/2020 12:00:00 AM EST active Accu-Chek [place] 1 eCW1 ([facility]) Blood Glucose Test 1 UNK 08/16/2020 12:00:00 AM EST active Blood Glucose Test 1 eCW1 ([facility]) Accu-Chek [place] 1 UNK 08/16/2020 12:00:00 AM EST active Accu-Chek [place] 1 eCW1 ([facility]) Accu-Chek Soft Touch Lancets 1 UNK 08/16/2020 12:00:00 AM EST active Accu-Chek Soft Touch Lancets 1 eCW1 ([facility]) Accu-Chek [place] 1 UNK 08/16/2020 12:00:00 AM EST active Accu-Chek [place] 1 eCW1 ([facility]) Accu-Chek [place] 1 UNK 08/16/2020 12:00:00 AM EST active Accu-Chek [place] 1 eCW1 ([facility]) Accu-Chek [place] 1 UNK 08/16/2020 12:00:00 AM EST active Accu-Chek [place] 1 eCW1 ([facility]) Accu-Chek [place] 1 UNK 08/16/2020 12:00:00 AM EST active Accu-Chek [place] 1 eCW1 ([facility]) Accu-Chek [place] 1 UNK 08/16/2020 12:00:00 AM EST active Accu-Chek [place] 1 eCW1 ([facility]) Accu-Chek [place] 1 UNK 08/16/2020 12:00:00 AM EST active Accu-Chek [place] 1 eCW1 ([facility]) Accu-Chek Soft Touch Lancets 1 UNK 08/16/2020 12:00:00 AM EST active Accu-Chek Soft Touch Lancets 1 eCW1 ([facility]) Accu-Chek Soft Touch Lancets 1 UNK 08/16/2020 12:00:00 AM EST active Accu-Chek Soft Touch Lancets 1 eCW1 ([facility]) Blood Glucose Test 1 UNK 08/16/2020 12:00:00 AM EST active Blood Glucose Test 1 eCW1 ([facility]) Accu-Chek Soft Touch Lancets 1 UNK 08/16/2020 12:00:00 AM EST active Accu-Chek Soft Touch Lancets 1 eCW1 ([facility]) Accu-Chek [place] 1 UNK 08/16/2020 12:00:00 AM EST active Accu-Chek [place] 1 eCW1 ([facility]) Blood Glucose Test 1 UNK 08/16/2020 12:00:00 AM EST active Blood Glucose Test 1 eCW1 ([facility]) Accu-Chek Regina 1 UNK 08/16/2020 12:00:00 AM EST active Accu-Chek Regina 1 eCW1 ([facility]) Accu-Chek Soft Touch Lancets 1 UNK 08/16/2020 12:00:00 AM EST active Accu-Chek Soft Touch Lancets 1 eCW1 ([facility]) Blood Glucose Test 1 UNK 08/16/2020 12:00:00 AM EST active Blood Glucose Test 1 eCW1 ([facility]) Accu-Chek Soft Touch Lancets 1 UNK 08/16/2020 12:00:00 AM EST active Accu-Chek Soft Touch Lancets 1 eCW1 ([facility]) Accu-Chek Soft Touch Lancets 1 UNK 08/16/2020 12:00:00 AM EST active Accu-Chek Soft Touch Lancets 1 eCW1 ([facility]) Accu-Chek [place] 1 UNK 08/16/2020 12:00:00 AM EST active Accu-Chek Regina 1 eCW1 ([facility]) Accu-Chek Regina 1 UNK 08/16/2020 12:00:00 AM EST active Accu-Chek Regina 1 eCW1 ([facility]) Accu-Chek Soft Touch Lancets 1 UNK 08/16/2020 12:00:00 AM EST active Accu-Chek Soft Touch Lancets 1 eCW1 ([facility]) Blood Glucose Test 1 UNK 08/16/2020 12:00:00 AM EST active Blood Glucose Test 1 eCW1 ([facility]) Accu-Chek Regina 1 UNK 08/16/2020 12:00:00 AM EST active Accu-Chek Regina 1 eCW1 ([facility]) Blood Glucose Test 1 UNK 08/16/2020 12:00:00 AM EST active Blood Glucose Test 1 eCW1 ([facility]) Accu-Chek Regina 1 UNK 08/16/2020 12:00:00 AM EST active Accu-Chek Regina 1 eCW1 ([facility]) Blood Glucose Test 1 UNK 08/16/2020 12:00:00 AM EST active Blood Glucose Test 1 eCW1 ([facility]) Accu-Chek Regina 1 UNK 08/16/2020 12:00:00 AM EST active Accu-Chek Regina 1 eCW1 ([facility]) Blood Glucose Test 1 UNK 08/16/2020 12:00:00 AM EST active Blood Glucose Test 1 eCW1 ([facility]) Blood Glucose Test 1 UNK 08/16/2020 12:00:00 AM EST active Blood Glucose Test 1 eCW1 ([facility]) Accu-Chek Soft Touch Lancets 1 UNK 08/16/2020 12:00:00 AM EST active Accu-Chek Soft Touch Lancets 1 eCW1 ([facility]) Blood Glucose Test 1 UNK 08/16/2020 12:00:00 AM EST active Blood Glucose Test 1 eCW1 ([facility]) Blood Glucose Test 1 UNK 08/16/2020 12:00:00 AM EST active Blood Glucose Test 1 eCW1 ([facility]) Accu-Chek Soft Touch Lancets 1 UNK 08/16/2020 12:00:00 AM EST active Accu-Chek Soft Touch Lancets 1 eCW1 ([facility]) Accu-Chek Soft Touch Lancets 1 UNK 08/16/2020 12:00:00 AM EST active Accu-Chek Soft Touch Lancets 1 eCW1 ([facility]) Blood Glucose Test 1 UNK 08/16/2020 12:00:00 AM EST active Blood Glucose Test 1 eCW1 ([facility]) Blood Glucose Test 1 UNK 08/16/2020 12:00:00 AM EST active Blood Glucose Test 1 eCW1 ([facility]) Accu-Chek Soft Touch Lancets 1 UNK 08/16/2020 12:00:00 AM EST active Accu-Chek Soft Touch Lancets 1 eCW1 ([facility]) Blood Glucose Test 1 UNK 08/16/2020 12:00:00 AM EST active Blood Glucose Test 1 eCW1 ([facility]) Blood Glucose Test 1 UNK 08/16/2020 12:00:00 AM EST active Blood Glucose Test 1 eCW1 ([facility]) Accu-Chek Regina 1 UNK 08/16/2020 12:00:00 AM EST active Accu-Chek Regina 1 eCW1 ([facility]) Blood Glucose Test 1 UNK 08/16/2020 12:00:00 AM EST active Blood Glucose Test 1 eCW1 ([facility]) Accu-Chek Soft Touch Lancets 1 UNK 08/16/2020 12:00:00 AM EST active Accu-Chek Soft Touch Lancets 1 eCW1 ([facility]) Accu-Chek Soft Touch Lancets 1 UNK 08/16/2020 12:00:00 AM EST active Accu-Chek Soft Touch Lancets 1 eCW1 ([facility]) Blood Glucose Test 1 UNK 08/16/2020 12:00:00 AM EST active Blood Glucose Test 1 eCW1 ([facility]) Accu-Chek Soft Touch Lancets 1 UNK 08/16/2020 12:00:00 AM EST active Accu-Chek Soft Touch Lancets 1 eCW1 ([facility]) Accu-Chek Regina 1 UNK 08/16/2020 12:00:00 AM EST active Accu-Chek Regina 1 eCW1 ([facility]) Blood Glucose Test 1 UNK 08/16/2020 12:00:00 AM EST active Blood Glucose Test 1 eCW1 ([facility]) Accu-Chek Soft Touch Lancets 1 UNK 08/16/2020 12:00:00 AM EST active Accu-Chek Soft Touch Lancets 1 eCW1 ([facility]) Accu-Chek Soft Touch Lancets 1 UNK 08/16/2020 12:00:00 AM EST active Accu-Chek Soft Touch Lancets 1 eCW1 ([facility]) Accu-Chek Soft Touch Lancets 1 UNK 08/16/2020 12:00:00 AM EST active Accu-Chek Soft Touch Lancets 1 eCW1 ([facility]) Blood Glucose Test 1 UNK 08/16/2020 12:00:00 AM EST active Blood Glucose Test 1 eCW1 ([facility]) Blood Glucose Test 1 UNK 08/16/2020 12:00:00 AM EST active Blood Glucose Test 1 eCW1 ([facility]) Blood Glucose Test 1 UNK 08/16/2020 12:00:00 AM EST active Blood Glucose Test 1 eCW1 ([facility]) Accu-Chek Regina 1 UNK 08/16/2020 12:00:00 AM EST active Accu-Chek Regina 1 eCW1 ([facility]) Accu-Chek Soft Touch Lancets 1 UNK 08/16/2020 12:00:00 AM EST active Accu-Chek Soft Touch Lancets 1 eCW1 ([facility]) Blood Glucose Test 1 UNK 08/16/2020 12:00:00 AM EST active Blood Glucose Test 1 eCW1 ([facility]) Accu-Chek Regina 1 UNK 08/16/2020 12:00:00 AM EST active Accu-Chek Regina 1 eCW1 ([facility]) Accu-Chek Soft Touch Lancets 1 UNK 08/16/2020 12:00:00 AM EST active Accu-Chek Soft Touch Lancets 1 eCW1 ([facility]) Accu-Chek Regina 1 UNK 08/16/2020 12:00:00 AM EST active Accu-Chek Reg[place] 1 eCW1 ([facility]) Accu-Chek Soft Touch Lancets 1 UNK 08/16/2020 12:00:00 AM EST active Accu-Chek Soft Touch Lancets 1 eCW1 ([facility]) Accu-Chek Soft Touch Lancets 1 UNK 08/16/2020 12:00:00 AM EST active Accu-Chek Soft Touch Lancets 1 eCW1 ([facility]) Accu-Chek Soft Touch Lancets 1 UNK 08/16/2020 12:00:00 AM EST active Accu-Chek Soft Touch Lancets 1 eCW1 ([facility]) Blood Glucose Test 1 UNK 08/16/2020 12:00:00 AM EST active Blood Glucose Test 1 eCW1 ([facility]) Accu-Chek Regina 1 UNK 08/16/2020 12:00:00 AM EST active Accu-Chek Reg[place] 1 eCW1 ([facility]) Accu-Chek Soft Touch Lancets 1 UNK 08/16/2020 12:00:00 AM EST active Accu-Chek Soft Touch Lancets 1 eCW1 ([facility]) Accu-Chek Soft Touch Lancets 1 UNK 08/16/2020 12:00:00 AM EST active Accu-Chek Soft Touch Lancets 1 eCW1 ([facility]) Accu-Chek Soft Touch Lancets 1 UNK 08/16/2020 12:00:00 AM EST active Accu-Chek Soft Touch Lancets 1 eCW1 ([facility]) Blood Glucose Test 1 UNK 08/16/2020 12:00:00 AM EST active Blood Glucose Test 1 eCW1 ([facility]) Blood Glucose Test 1 UNK 08/16/2020 12:00:00 AM EST active Blood Glucose Test 1 eCW1 ([facility]) Accu-Chek Reg[place] 1 UNK 08/16/2020 12:00:00 AM EST active Accu-Chek Regina 1 eCW1 ([facility]) Blood Glucose Test 1 UNK 08/16/2020 12:00:00 AM EST active Blood Glucose Test 1 eCW1 ([facility]) Accu-Chek Regina 1 UNK 08/16/2020 12:00:00 AM EST active Accu-Chek Regina 1 eCW1 ([facility]) Blood Glucose Test 1 UNK 08/16/2020 12:00:00 AM EST active Blood Glucose Test 1 eCW1 ([facility]) Accu-Chek [place] 1 UNK 08/16/2020 12:00:00 AM EST active Accu-Chek [place] 1 eCW1 ([facility]) Accu-Chek Soft Touch Lancets 1 UNK 08/16/2020 12:00:00 AM EST active Accu-Chek Soft Touch Lancets 1 eCW1 ([facility]) Accu-Chek [place] 1 UNK 08/16/2020 12:00:00 AM EST active Accu-Chek Regina 1 eCW1 ([facility]) Accu-Chek Reg[place] 1 UNK 08/16/2020 12:00:00 AM EST active Accu-Chek Regina 1 eCW1 ([facility]) FreeStyle Precision Adam Test - FreeStyle Precision Adam Test - 08/15/2020 12:00:00 AM EST active FreeStyl e Precision Adam Test - eCW1 ([facility]) FreeStyle Precision Adam Test - FreeStyle Precision Adam Test - 08/15/2020 12:00:00 AM EST suspended FreeS tyle Precision Adam Test - eCW1 ([facility]) FreeStyle Precision Adam Test - FreeStyle Precision Adam Test - 08/15/2020 12:00:00 AM EST active FreeStyl e Precision Adam Test - eCW1 ([facility]) FreeStyle Precision Adam Test - FreeStyle Precision Adam Test - 08/15/2020 12:00:00 AM EST active FreeStyl e Precision Adam Test - eCW1 ([facility]) FreeStyle Precision Adam Test - FreeStyle Precision Adam Test - 08/15/2020 12:00:00 AM EST suspended FreeS tyle Precision Adam Test - eCW1 ([facility]) FreeStyle Precision Adam Test - FreeStyle Precision Adam Test - 08/15/2020 12:00:00 AM EST suspended FreeS tyle Precision Adam Test - eCW1 ([facility]) FreeStyle Precision Adam Test - FreeStyle Precision Adam Test - 08/15/2020 12:00:00 AM EST suspended FreeS tyle Precision Adam Test - eCW1 ([facility]) FreeStyle Precision Adam Test - FreeStyle Precision Adam Test - 08/15/2020 12:00:00 AM EST active FreeStyl e Precision Adam Test - eCW1 ([facility]) FreeStyle Precision Adam Test - FreeStyle Precision Adam Test - 08/15/2020 12:00:00 AM EST active FreeStyl e Precision Adam Test - eCW1 ([facility]) FreeStyle Precision Adam Test - FreeStyle Precision Adam Test - 08/15/2020 12:00:00 AM EST active FreeStyl e Precision Adam Test - eCW1 ([facility]) FreeStyle Precision Adam Test - FreeStyle Precision Adam Test - 08/15/2020 12:00:00 AM EST suspended FreeS tyle Precision Adam Test - eCW1 ([facility]) FreeStyle Precision Adam Test - FreeStyle Precision Adam Test - 08/15/2020 12:00:00 AM EST active FreeStyl e Precision Adam Test - eCW1 ([facility]) FreeStyle Precision Adam Test - FreeStyle Precision Adam Test - 08/15/2020 12:00:00 AM EST suspended FreeS tyle Precision Adam Test - eCW1 ([facility]) FreeStyle Precision Adam Test - FreeStyle Precision Adam Test - 08/15/2020 12:00:00 AM EST active FreeStyl e Precision Adam Test - eCW1 ([facility]) FreeStyle Precision Adam Test - FreeStyle Precision Adam Test - 08/15/2020 12:00:00 AM EST active FreeStyl e Precision Adam Test - eCW1 ([facility]) benzonatate 200 MG Oral Capsule benzonatate (TESSALON) 200 MG capsule benzonatate (TESSALON) 200 MG capsule 08/20/2019 12:00:00 AM EST aborted daily as needed [facility] [place] Albuterol 0.83 MG/ML Inhalant Solution a lbuterol (PROVENTIL) (2.5 MG/3ML) 0.083% nebulizer solution albuterol (PROVENTIL) (2.5 MG/3ML) 0.083% nebulizer so lution 08/20/2019 12:00:00 AM EST aborted INHALE CONTENTS OF 1 VIAL VIA NEBULIZER FOUR TIMES DAILY NEEDED FOR WHEEZING [facility] tizanidine 4 MG Oral Tablet tiZANidine (ZANAFLEX) 4 MG tablet tiZANidine (ZANAFLEX) 4 MG tablet 4 mg Oral aborted Take 4 mg by mouth every 8 (eight) hours as needed (for muscle spasms) [facility] Metoprolol Tartrate 25 MG Oral Tablet me toprolol tartrate (LOPRESSOR) 25 MG tablet metoprolol tartrate (LOPRESSOR) 25 MG tablet 25 mg Ora l aborted Take 25 mg by mouth See Admin Instructio ns PRN if BP is >140/80 [facility] Insurance Providers Payer name Policy type / Coverage type Policy ID Covered constitution party ID Covered constitution party's relationship to batista Policy Batista Plan Information [employer] [id number] [facility] 2 [id number] SELF [id number] Medicare - NGS Medicare Primary [id number] Self [id number] Medicare C [id number] SELF [id number] A MEDICARE A [id number] Self [id number] A MEDICARE [id number] Shanthi [id number] A Medicare - NGS Medicare Primary [id number] Self 0 [id number] Medicare - NGS Medicare Primary [id number] Self [id number] A DME Jurisdiction A [facility] C [id number] SELF [id number] Medicare C [id number] SELF [id number] A Medicaid [facility] S D [id number] SELF [id number] MEDICAID M [id number] Self [id number] MEDICAID [id number] Shanthi [id number] MEDICAID [id number] xxxxxxxx [id number] [facility] Comm Plan Medicare F [id number] SELF [id number] [facility] Comm Plan Medicare F [id number] SELF [id number] [facility] MEDICARE [id number] Shanthi [id number] [facility] HEA [id number] S [id number] [facility] MEDICARE [id number] xxxxxxxxx [id number] MEDICAID [id number] SP [id number] [facility] MCRO [id number] SP [id number] [facility] MCRO [id number] SP [id number] Medicare Community Plan Commercial [id number] Self 1 [id number] Medicare Community Plan Commercial [id number] Self [id number] [facility] [id number] SP [id number] MEDICAID [id number] SP [id number] MEDICAID [id number] SP [id number] [facility] MCRO [id number] SP [id number] [facility] Commercial Insurance Co. [id number] Self [id number] Medicaid Medicaid [id number] Self [id number] ANSI-Commercial [id number] ANSI-Commercial [id number] ANSI-Not a Secondary Insurance [id number] ANSI-Medicaid [id number] ANSI-Medicaid [id number] ANSI-Not a Secondary Insurance [id number] ANSI-Commercial [id number] ANSI-Commercial [id number] ANSI-Medicaid [id number] ANSI-Not a Secondary Insurance [id number] Medicaid [place] Medigap Part B [id number] Self [id number] ANSI-Commercial [id number] ANSI-Medicaid [id number] ANSI-Not a Secondary Insurance [id number] ANSI-Commercial [id number] ANSI-Medicaid [id number] ANSI-Not a Secondary Insurance [id number] ANSI-Not a Secondary Insurance [id number] ANSI-Medicaid [id number] ANSI-Commercial [id number] ANSI-Not a Secondary Insurance [id number] ANSI-Commercial [id number]-f9mq-6g10-[id number]-[id number]-[id number] ANSI-Medicaid [id number] ANSI-Commercial [id number]-[id number]-[id number] ANSI-Not a Secondary Insurance [id number] ANSI-Medicaid [id number] ANSI-Medicaid [id number] ANSI-Not a Secondary Insurance [id number]-669o-[id number] ANSI-Commercial [id number]-u25m-57fi-in36-[id number] [id number]-s84o-99qu-io81-[id number] ANSI-Medicaid [id number] ANSI-Not a Secondary Insurance [id number] ANSI-Commercial [id number]-[id number] ANSI-Not a Secondary Insurance [id number]-[id number]-5n38-[id number] ANSI-Commercial [id number]-[id number]-[id number] ANSI-Medicaid [id number] ANSI-Commercial [id number]-[id number]-06q8-64j9-[id number] ANSI-Not a Secondary Insurance [id number]-[id number] [id number]-[id number] ANSI-Medicaid [id number] ANSI-Not a Secondary Insurance [id number]-l09l-[id number] ANSI-Commercial [id number]-j789-8v3x-l33j-z6qv5r6q1n2a [id number]-f33q-l6wn6k7i8t3q ANSI-Medicaid [id number] ANSI-Not a Secondary Insurance [id number]-[id number] ANSI-Medicaid [id number] ANSI-Commercial [id number]-[id number]-0294-[id number]-[id number] ANSI-Medicaid [id number] ANSI-Not a Secondary Insurance [id number] ANSI-Commercial [id number]-[id number]-[id number] [id number]-34q6-5927-[id number] ANSI-Not a Secondary Insurance [id number] [id number] ANSI-Medicaid [id number] ANSI-Commercial [id number]-[id number] ANSI-Medicaid [id number] ANSI-Not a Secondary Insurance [id number] ANSI-Commercial [id number]-[id number]-[id number] ANSI-Medicaid [id number] ANSI-Not a Secondary Insurance [id number]-[id number] ANSI-Commercial 5pvanzy1-39e5-0r65-[id number] 6dkeahl7-67h5-5y56-zcb3-73axq8m5xsbz [facility] [id number] SP [id number] [facility] [id number] SP [id number] ANSI-Not a Secondary Insurance [id number]-[id number]-h5g5-[id number] ANSI-Medicaid [id number] ANSI-Commercial [id number]-[id number]-w064-12l0-6ujo-[id number] ANSI-Not a Secondary Insurance [id number] azcku4d [id number]-r72g-[id number] ANSI-Medicaid [id number] ANSI-Commercial [id number]-lv5e-99mn-7v32-[id number] 9nk5f50h-xo4u-85qm-2f38-[id number] ANSI-Commercial [id number]-587o-05xs-y4d5-390s38h3n76l [id number]-313w-04qi-[id number] ANSI-Not a Secondary Insurance [id number]-[id number] ANSI-Medicaid [id number] ANSI-Commercial [id number]-[id number]-[id number] ANSI-Medicaid [id number] ANSI-Medicare Part B [id number] ANSI-Medicaid [id number] ANSI-Medicaid [id number] ANSI-Medicare Part B [id number] ANSI-Commercial ffl0j93h-8819-71o3-655r-y9gs0mrt7ls0 feq8t98u-8711-60o6-045r-g0uy3ufw6or7 ANSI-Medicaid [id number] ANSI-Commercial 43lyye3z-8k7s-42qi-s805-w6l12vf8xg05 29rzaw2m-9d9o-51yh-q869-b0r31zl9ci03 ANSI-Medicaid [id number]-[id number]-[id number] ANSI-Medicare Part B [id number] ANSI-Medicaid [id number] ANSI-Medicaid [id number] ANSI-Medicare Part B [id number] ANSI-Medicaid [id number]-[id number] ANSI-Commercial 4nx0703v-r03e-8989-8928-c53y624h3s46 4qg5552s-r52h-6226-5219-d16c215p8k38 ANSI-Medicaid [id number] ANSI-Medicaid [id number] ANSI-Commercial 8g28j54p-8zhc-233b-025l-4p738oagpv25 4w12h53l-9cpw-178p-602i-2x589lrrpx00 ANSI-Medicare Part B [id number] ANSI-Medicare Part B [id number] ANSI-Commercial 918de816-7y3p-9t43-i14m-77bjqd2z47e4 590xj508-6x0s-2e77-r91n-84umwt9a39v3 ANSI-Medicaid [id number] [place] [id number] ANSI-Medicare Part B [id number] ANSI-Medicaid [id number]-[id number] ANSI-Medicaid [id number]-[id number] ANSI-Commercial msd65ia6-19s3-8b89-sieh-1n51l72i3c06 rwb57lo0-93m9-6j78-mdcw-4e76x67s2p32 ANSI-Commercial 88g253u7-0924-7w52-r50b-c70c46o4d696 86m783d4-9130-8e99-k38k-h23r36g3i522 ANSI-Medicaid [id number] ANSI-Medicaid [id number] ANSI-Medicare Part B [id number] ANSI-Medicaid [id number] ANSI-Medicaid [id number] ANSI-Medicare Part B [id number] ANSI-Commercial 8ew0925h-x40q-7429-zwa9-4331k1z4499v 1hw4797n-m44t-4225-lxo8-0847n0x7111j ANSI-Medicaid [id number] ANSI-Commercial 166ntmbu-n51c-98z7c47x-19s5-p013-17e6c536z37d 457urbkm-u33k-80v6a84j-94j6-r094-34m7i129q07l ANSI-Medicaid [id number] ANSI-Medicare Part B [id number] ANSI-Commercial [id number]-41b87v4g9568 zi223469-6936-9y75-153x-[id number] ANSI-Medicaid [id number] nhswpca0-43g8-3w2s79y7-9i0d-[id number] ANSI-Medicaid [id number] ANSI-Medicare Part B [id number] ANSI-Medicaid [id number]-[id number] ANSI-Commercial [id number]-2v5n-0pcy612lr334 8f212215-0w36-61wp-9g1c-2wni447bm066 ANSI-Medicaid [id number] ANSI-Medicare Part B [id number] ANSI-Medicaid [id number] ANSI-Medicare Part B [id number] ANSI-Medicaid [id number] ANSI-Commercial 2777b97e-7zhj-7ql6-251x-hm753ev6azz8 8297s00f-7cup-2jt4-073b-lo304dc8bzj7 ANSI-Medicaid [id number]-qzp8-[id number] ANSI-Medicaid [id number] ANSI-Medicare Part B [id number] ANSI-Commercial 44z1z63u-8033-7t3e-5015-w44h2yc94460 [id number] ANSI-Medicare Part B [id number] ANSI-Commercial [id number] ANSI-Medicaid [id number] ANSI-Medicaid [id number] Medicaid [place] [facility] Part B [id number] Self [id number] [facility] [id number] Self [id number] MEDICAID HE [id number] S [id number] [facility] HEA [id number] S [id number] UNAVAILABLE UNAVAILA BLE [facility] HEA [id number] S [id number] [facility](MCAID) O [id number] S [id number] MEDICAID [id number] SP [id number] MEDICARE [id number] SP [id number] MEDICAID W [id number] S [id number] MEDICARE PART A M [id number] S [id number] MEDICAID W [id number] S [id number] MEDICARE M [id number] S [id number] A MEDICAID W [id number] S [id number] WORKERS COMPENSATION DOES NOT APPLY THIS VISIT SP DOES NOT APPLY THIS VISIT OTHER WORKERS COMPENSATION DOES NOT APPLY THIS VISIT SP DOES NOT APPLY THIS VISIT SAUNDRA DURHAM DOES NOT APPLY THIS VISIT SP DOES NOT APPLY THIS VISIT HONYTRUST [id number] SP [id number] WELL[employer] CONNECTION [id number] SP [id number] [employer] [place] PPO [id number] SP [id number] [place] PPO 302/307 [id number] SP [id number] HONYTRUST [id number] SP [id number] SELF PAY UNAVAILABLE SP UNAVAILA BLE OTHER WORKERS COMPENSATION [id number] SP [id number] [facility] [id number] SP [id number] ANSI-Medicaid [id number] [facility] [id number] SP [id number] [place] [id number] SP [id number] [facility]([place]CA[facility]) O [id number] S [id number] MEDICAID M [id number] S [id number] MEDICAID [id number] SP [id number] MEDICARE COMPLETE [id number] SP [id number] MEDICARE COMPLETE-[facility] O [id number] S [id number] ANSI-Commercial [id number] ANSI-Medicaid [id number] ANSI-Not a Secondary Insurance [id number] ANSI-Not a Secondary Insurance [id number] ANSI-Commercial [id number] ANSI-Medicaid [id number] ANSI-Medicaid [id number] ANSI-Not a Secondary Insurance [id number] ANSI-Commercial [id number] ANSI-Medicaid [id number] ANSI-Not a Secondary Insurance [id number] ANSI-Commercial [id number] ANSI-Medicaid [id number] ANSI-Commercial [id number] ANSI-Not a Secondary Insurance [id number] ANSI-Medicaid [id number] ANSI-Not a Secondary Insurance [id number] ANSI-Commercial [id number] ANSI-Not a Secondary Insurance [id number] ANSI-Commercial [id number] ANSI-Medicaid [id number] ANSI-Not a Secondary Insurance [id number] ANSI-Medicaid [id number] Problems, Conditions, and Diagnoses Code Display Name Description Problem Type Effective Dates Data Source(s) I15.9 Secondary hypertension, unspecified Secondary hy pertension, unspecified Diagnosis 01/11/2021 07:45:19 AM EDT [facility] E11.9 Type 2 diabetes mellitus without complic ations Type 2 diabetes mellitus without complic Diagnosis 01/11/2021 07:45:19 AM EDT [facility] Z86.718 Personal history of other venous thrombo sis and embolism Personal history of other venous thrombo Diagnosis 01/11/2021 07:45:19 AM EDT [facility] Z68.41 Body mass index (BMI) 40.0-44.9, adult B tavia mass index (BMI)40.0-44.9, adult Diagnosis 01/11/2021 07:45:19 AM EDT [facility] E66.01 Morbid (severe) obesity due to excess ca lories Morbid (severe) obesity due to excess ca Diagnosis 01/11/2021 07:45:19 AM EDT [facility] I48.0 Paroxysmal atrial fibrillation Paroxysmal atrial fibri llation Diagnosis 01/11/2021 07:45:19 AM EDT [facility] J30.9 Allergic rhinitis Allergic rhinitis Problem 06/08/2021 12:00:00 AM EDT eCW1 ([facility]) M47.816 [id number] Lumbar Facet arthropathy Problem 06/02/2021 12:00:00 AM EDT eCW1 ([facility]) Z80.0 [id number] FH: colon cancer Problem 12/15/2020 12:00:00 AM EDT eCW1 ([facility]) G89.29 Chronic pain Other chronic pain Problem 06/13/2020 12:0 0:00 AM EDT eCW1 ([facility]) M47.816 [id number] Spondylosis without myelopathy or radiculopathy, lumbar region Problem 05/31/2020 12:00:00 AM EDT eCW1 ([facility]) Surgeries/Procedures Procedure Description Date Indications Data Source(s) OFFICE OUTPATIENT VISIT 25 MINUTES 06/16/2021 12:00:00 AM EDT [facility] Imm: Flublok Quadrivalent 18 years & older 0.5mL IM Influenz a 06/08/2021 12:00:00 AM EDT eCW1 ([facility]) Injection, vitamin b-12 cyanocobalamin, up to 1000 mcg 05/23/2021 12:00:00 AM EDT eCW1 ([facility]) Inject/Drain Arthrocentesis Major Joint/Bursa/Ganglion Cyst 05/05/2021 12:00:00 AM EDT [facility] OFFICE OUTPATIENT VISIT 25 MINUTES 05/05/2021 12:00:00 AM ED[facility] OFFICE OUTPATIENT NEW 30 MINUTES 04/14/2021 12:00:00 A M EDT [facility] ([facility]) OFFICE OUTPATIENT NEW 45 MINUTES 04/14/2021 12:00:00 A M EDT [facility] Injection, vitamin b-12 cyanocobalamin, up to 1000 mcg 03/20/2021 12:00:00 AM EDT eCW1 ([facility]) Med: Vitamin B-12 1000mcg/1mL SC Cyanocobalamin 2020 12:00:00 AM EDT eCW1 ([facility]) OFFICE OUTPATIENT VISIT 15 MINUTES 01/17/2021 12:00:00 AM EDT [facility] ([facility]) ECG ROUTINE ECG W/LEAST 12 LDS W/I&R <td>POCT AMB EKG</td><td>Routine</td><td>01/11/2021 8:37 AM EDT</td><td> Paroxysmal atrial fibrillation</td><td> </td> 01/11/2021 08:37:00 AM EDT Paroxysmal atrial fibrillation [facility] Paroxysmal atrial fibrillation Injection, vitamin b-12 cyanocobalamin, up to 1000 mcg 11/17/2020 12:00:00 AM EDT eCW1 ([facility]) Colonoscopy Flexible Proximal To Splenic Flexure Diagnostic W/Or 10/25/2020 12:00:00 AM EST [facility] ([facility]) Pain Procedure Log 08/16/2020 12:00:00 AM EST eCW1 ([facility]) Injection, vitamin b-12 cyanocobalamin, up to 1000 mcg 08/15/2020 12:00:00 AM EST eCW1 ([facility]) Immunization: Flublok Quadrivalent (18 years & older) 0.5mL IM (Influenza) 07/20/2020 12:00:00 AM EST eCW1 ([facility]) Pain Procedure Log 07/19/2020 12:00:00 AM EST eCW1 ([facility]) Injection, vitamin b-12 cyanocobalamin, up to 1000 mcg 06/20/2020 12:00:00 AM EDT eCW1 ([facility]) Results ID Date Data Source [id number] 06/23/2021 09:09:24 AM EDT [facility]: Lacy GrantDOB: 1955Provider: Tae Hastings: 06/23/2021 Chief Complaintright shoulder pain Chief Complaint 2NYSW VAS PAIN Established: MA completing section: ASmithLPN History of Present IllnessA Urine Drug Screen was ordered for Flor Grant and collected on site today 06/23/2021. Creatinine has been ordered as well for specimen validity, not for kidney function. Preliminary UDS results are not final and should not be used to determine patient care or plan of treatment. Initially a qualitative immunoassay screen will be done. Please note this is not a dip test. Any positive findings or negative findings that are a RED FLAG (out of compliance) will be further tested with a more comprehensive quantitative confirmation LCMS study. If we prescribe opioids there may be quantitative confirmation ordered to detect specific drug prescribed. In some cases, qualitative screens identify presence of a class of opioids not the specific drug prescribed. Therefore, quantitative confirmation is required to verify the presence of the specific drug prescribed. It is part of the normal prescribing protocol of controlled substances and is considered standard of care. Recent test/procedures: Patient was asked and denies having any tests since their last visit. Patient was asked and denies being seen by any Physicians since their last visit. The patient was last seen by a [facility] provider on 04/10/21. At today's visit patient presents with their Self Implanted Devices The patient has the following implanted device(s): LOOP recorder. The patient does not have a glucose monitoring device. Patient is not currently working. 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 The patient is being seen for a workers compensation follow-up. The workers compensation date of injury is 05/30/07. Pain Quality: (Neuropathic) burning Pain Quality: (Nociceptive) aching, dull and stabbing Timing: constant and intermittent. Palliation: opio id analgesics Exacerbating: arm movement, arms over head, head turning left, head turning right, lifting and neck movement Pain Score: a current pain level of 7/10, a minimum pain level of 4/10 and a maximum pain level of 10/10. Condition type: The patient is being seen for a chronic condition. PAIN LOCATION: the pain is located in the neck, and the pain is in the neck more than the arms. The etiology of this injury/condition is related to an injury / accident. INJURY SETTING: at work. INJURY MECHANISM: The injury resulted from trauma. REVIEW OF PAST DIAGNOSTICS: have included: MRI. PAST TREATMENT has included: OPIOID ANALGESICS (effective). ASSOCIATED SYMPTOMS: include muscle pain/spasm and radiating. FUNCTIONAL LIMITATIONS: The patient's functional status is limited as follows: ability to participate in aerobic activity and participate in hobbies. MEDICATION SIDE EFFECTS experienced by patient are: no known medication side effects. Active Problems 1. Chronic pain (338.29) (G89.29) 2. 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 Mid back pain (724.5) (M54.9) 5. Mid back pain on right side (724.5) (M54.9) 6. Spasm of paraspinal muscle (724.8) (M62.830) 7. Spondylosis, thoracic (721.2) (M47.814) 8. Taking Blood Thinners Allergies Bactrim TABS Hives;; Recorded By: Luis Fernando Song; 10/26/2011 9:16:33 AM Clindamycin Hives;; Recorded By: Niki Danielle; 11/26/2011 9:57:33 AM Codeine Derivatives Hives;; Recorded By: Luis Fernando Song; 10/26/2011 9:16:32 AM Doxycycline Hyclate CAPS Hives;; Recorded By: Luis Fernando Song; 10/26/2011 9:16:33 AM Novocain SOLN Hives;; Recorded By: Luis Fernando Song; 10/26/2011 9:16:33 AM Penicillins Hives;; Recorded By: Luis Fernando Song; 10/26/2011 9:16:32 AM Talwin NX TABS Hives;; Recorded By: Luis Fernando oSng; 10/26/2011 9:16:32 AM Tetracyclines Hives;; Recorded By: Luis Fernando Song; 10/26/2011 9:16:33 AM Vicodin TABS Itching; Rash; Updated By: Dominique Anton; 11/26/2016 8:11:03 AMDenied Adhesive Tape Recorded By: Luis Fernando Song; 10/26/2011 9:16:33 AM Iodinated Contrast Media Recorded By: Sara March; 12/01/2015 1:49:30 PM Latex Recorded By: Luis Fernando Song; 10/26/2011 9:16:33 AM Current Meds Cyclobenzaprine HCl - 10 MG Oral Tablet; TAKE 1 TABLET TWICE DAILY NEEDED;Therapy: 13Jdq3685 to (Evaluate:13Uqq8169) Requested for: 31May2021; LastRx:31May2021 Ordered Ferrous Sulfate 325 (65 Fe) MG Oral Tablet;Therapy: 10Jun2015 to Recorded Iron TABS;Therapy: (Recorded:48Ing2914) to Recorded Multi-Vitamin TABS;Therapy: (Recorded:26Nov2011) to Recorded Nystatin 244211 UNIT/GM External Cream;Therapy: 08Sep2012 to Recorded oxyCODONE-Acetaminophen 5-325 MG Oral Tablet; TAKE 1 TO 2 tabs every 8 hours asneeded for pain MDD:3;Therapy: 02Apr2019 to (Evaluate:25Jun2021) Requested for: 26May2021; LastRx:26May2021 OrderedLD 04/10/21 Pantoprazole Sodium 40 MG Oral Tablet Delayed Release;Therapy: 24Sep2014 to Recorded Vitamin D (Ergocalciferol) 1.25 MG (81597 UT) Oral Capsule; TK 1 C PO WEEKLY;Therapy: 24Jul2010 to Recorded Xarelto 20 MG Oral Tablet;Therapy: 18Jul2015 to Recorded Past Medical History History of Arthritis (V13.4) History of anemia (V12.3) (Z86.2) History of atrial fibrillation (V12.59) (Z86.79) History of blood coagulation disorder (V12.3) (Z86.2) History of depression (V11.8) (Z86.59) History of herpes zoster (V12.09) (Z86.19) History of hypertension (V12.59) (Z86.79) History of type 2 diabetes mellitus (V12.29) (Z86.39) History of On anticoagulant therapy (V58.61) (Z79.01) xarelto, 20 mg... Dr. Pozo Denied: History of (V22.2) History of Shoulder pain (719.41) (M25.519) Surgical History History of Appendectomy History of Cataract Surgery bilaterally march 2014 History of Gastric Surgery For Morbid Obesity Gastric Bypass Resolved Date: 30 Dec 2015 Revision done 12/30/15 History of Gastric Surgery For Morbid Obesity Gastric Bypass revision December 29, 2015 History of Hernia Repair History of Hysterectomy History of Knee Replacement right.... 06/20/15 [facility] History of Loop recorder insertion History of Nasal Septal Deviation Repair right wrist History of Shoulder Surgery 2007,2008 right shoulder x2 History of Wrist Surgery right VitalsVital Signs Recorded: 23Jun2021 07:51AM Pacemaker: NoICD: NoHeight: 5 ft 3 inWeight: 246 lb BMI Calculated: 43.58 kg/m2BSA Calculated: 2.11Systolic: 119Diastolic: 75Heart Rate: 75Respiration: 16Height measured w/wo shoes: w/shoesPain Scale: 6 Physical ExamGeneral: The patient is a well nourished/well developed, female, who is morbidly obese, who is in no acute distress and appears stated age. Gait and Station: Gait was normal. Psychological: Alert and oriented to person, place and time. Mood and affect are pleasant and appropriate. Judgement intact. Insight normal without delusions or hallucinations. Denies suicidal/homicidal ideation. Assessment 1. Chronic pain (338.29) (G89.29) 2. Chronic right shoulder pain (719.41,338.29) (M25.511,G89.29) 3. Mid back pain on right side (724.5) (M54.9) Plan 1. Renew: oxyCODONE-Acetaminophen 5-325 MG Oral Tablet; TAKE 1 TO 2 tabs every 8 hours as needed for pain MDD:3LD 04/10/21 2. UDS-LAB WC / NF ([facility] Urine Drug Screen); [Do Not Release]; Specimen Source:Urine; Status:In Progress - Specimen/Data Collected; Done: 58Gsm4385 3. [facility] - Survey Evaluation Evaluation Status: Complete Done: 68Eqz1189Cqnavn Depression Screening - Patient's PHQ-9 score is: : N/A - PHQ-9 not performed todayHave you EVER received a Pneumococcal Vaccine...? : No - Patient has never received a Pneumococcal vaccinationFLU - Have you received a flu shot in 2020 ? : Yes - Influenza immunization previously receivedBMI for Patients 18 and over : 25 or greater, BMI above normal parameters, follow-up plan documentedDo you use any kind of Tobacco? (smokes or uses smokeless tobacco): : Patient identified as a NON-Tobacco User<OBX.5.1><OBX.5.1.1>WOMEN </OBX.5.1.1><OBX.5.1.2> ANYONE >/= 65 - How many times in the past year have you had 4 or more</OBX.5.1.2></OBX.5.1> drinks in a day? : ZeroMEN < 65 - How many times in the past year have you had 5 or more drinks in a day? : N/A 4. Follow-up in 2 months Follow Up Follow-up Status: Complete Done: [id number] Appointment for 15 or 30 minutes : Schedule 15 minute appointment Medication:. [place] TONGUE CARRIER Information: TONGUE CARRIER was consulted by my designee and I have reviewed the information presented to me and find no aberrant compliance issues. Patient has been informed. Controlled Substance Prescribed: OXYCODONE . CONTROLLED SUBSTANCE INFORMATION: I advised the patient today/previously regarding treatment with the above controlled substance and/or narcotic. The patient was then informed of the risks, benefits, and alternatives of the narcotic. The risks discussed included but were not limited to physical and/or psychological dependence, tolerance of the medication, drowsiness, sleepiness, balance/coordination problems, confusion, allergic reaction or any other abnormal symptoms. The patient was advised and agreed to use the medication only as prescribed, and not to drive, or operate heavy equipment or machinery. The patient understood and consented to both undergo a narcotic/opiate regimen and agreed to sign and comply with all of the [facility] terms of a controlled substance treatment and agreement. Patient has received a copy of the Opioid instruction sheet. Patient has been counseled on the changes made to their controlled substance and agrees to continue compliance with the controlled substance agreement previously signed. There are no changes in current medications at this visit. Patient instructed to continue current regimen. UDS: This is an established patient and is on ongoing opioid therapy. A UDS is being obtained today, the patient has previously consented to UDS as part of the Controlled Substance and Treatment Agreement. The reason for today's UDS is: patient was selected at random and scored as low risk on the opioid risk assessment. Creatinine has been ordered as well for specimen validity, not for kidney function. Preliminary UDS results are not final and should not be used to determine patient care or plan of treatment. Initially a qualitative immunoassay screen will be done. Any positive findings or negative findings that are out of compliance will be further tested with a more comprehensive quantitative confirmation LCMS study. It is part of the normal prescribing protocol of controlled substances and is considered standard of care. Treatment includes: FOLLOW UP: The patient should have a follow up visit in 2 months. - STONE CLEANER: The patient was counseled on the following: treatment plan and future treatment options. Discussion/SummaryPatient presents today with right shoulder pain. Patient states the current medication regimen controls her pain so that she is able to perform activities of daily living such as personal hygiene and house chores. Patient will continue with this and return to the office for follow-up in 2 months. Patient states her understanding and is in agreement with the treatment plan. Work / School NotePATIENT: if you submit this to your employer as an out of work note please be aware this includes PHI (Protected Health Information). The incident described by the patient is a competent medical cause of this injury. The patient's complaints are consistent with the history of the injury/illness. The patient's history of the injury/illness is consistent with my objective findings. The percentage of temporary impairment is 67 %. The patient is not working at this time. Patient is on permanent disability. Patient is on partial disability. Moderate. Dragon DisclaimerNYSWC Guaranteach Disclaimer: This document was dictated and electronically signed using [employer] Speaking software. A reasonable attempt at proof reading has been made to minimize errors. Please call with any questions. Signatures Electronically signed by : Tomas Hastings NP; Jun 23 2021 8:34AM EST (Author) El ectronically signed by : Tomas Hastings NP; Jun 23 2021 8:36AM EST (Author) Electronically signed by : Cheri Ogden MD; Jun 23 2021 9:09AM EST Name Value Range Interpretation Code Description Data Yolanda rce(s) Supporting Document(s) ID Date Data Source [id number] 04/10/2021 09:45:07 AM EDT [facility] Cat hy JuanitaDOB: 1955Provider: Tae Hastings: 04/10/2021 Chief Complaintright shoulder pain Chief Complaint 2NYSW VAS PAIN Established: 6 MA completing section: BBibbs History of Present IllnessRecent test/procedures: Patient was asked and denies having any tests since their last visit. Patient was asked and denies being seen by any Physicians since their last visit. At today's visit patient presents with their Self Implanted Devices The patient has the following implanted device(s): Loop Recorder. The patient does not have a glucose monitoring device. Patient is not currently working. The patient is being seen for a workers compensation follow-up. The workers compensation date of injury is 05/30/07. Pain Quality: (Neuropathic) burning Pain Quality: (Nociceptive) aching, dull and stabbing Timing: constant and intermittent. Palliation: opioid analgesics Exacerbating: arm movement, arms over head, head turning left, head turning rig ht, lifting and neck movement Pain Score: a current pain level of 6/10, a minimum pain level of 4/10 and a maximum pain level of 9/10. Condition type: The patient is being seen for a chronic condition. PAIN LOCATION: the pain is located in the neck, radiates to the right shoulder, the pain is greater on the right side more than the left and the pain is in the neck more than the arms. The etiology of this injury/condition is related to an injury / accident. INJURY SETTING: at work. INJURY MECHANISM: The injury resulted from trauma. REVIEW OF PAST DIAGNOSTICS: have included: MRI. PAST TREATMENT has included: OPIOID ANALGESICS (effective). ASSOCIATED SYMPTOMS: include muscle pain/spasm and radiating. FUNCTIONAL LIMITATIONS: The patient's functional status is limited as follows: ability to participate in aerobic activity and participate in hobbies. MEDICATION SIDE EFFECTS experienced by patient are: no known medication side effects. Active Problems 1. Chronic pain (338.29) (G89.29) 2. 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 Mid back pain (724.5) (M54.9) 5. Mid back pain on right side (724.5) (M54.9) 6. Spasm of paraspinal muscle (724.8) (M62.830) 7. Spondylosis, thoracic (721.2) (M47.814) 8. Taking Blood Thinners Allergies Bactrim TABS Hives;; Recorded By: Luis Fernando Song; 10/26/2011 9:16:33 AM Clindamycin Hives;; Recorded By: Niki Danielle; 11/26/2011 9:57:33 AM Codeine Derivatives Hives;; Recorded By: Luis Fernando Song; 10/26/2011 9:16:32 AM Doxycycline Hyclate CAPS Hives;; Recorded By: Luis Fernando Song; 10/26/2011 9:16:33 AM Novocain SOLN Hives;; Recorded By: Luis Fernando Song; 10/26/2011 9:16:33 AM Penicillins Hives;; Recorded By: Luis Fernando Song; 10/26/2011 9:16:32 AM Talwin NX TABS Hives;; Recorded By: Luis Fernando Song; 10/26/2011 9:16:32 AM Tetracyclines Hives;; Recorded By: Luis Fernando Song; 10/26/2011 9:16:33 AM Vicodin TABS Itching; Rash; Updated By: Dominique Anton; 11/26/2016 8:11:03 AMDenied Adhesive Tape Recorded By: Luis Fernando Song; 10/26/2011 9:16:33 AM Iodinated Contrast Media Recorded By: Sara March; 12/01/2015 1:49:30 PM Latex Recorded By: Luis Fernando Song; 10/26/2011 9:16:33 AM Current Meds Cyclobenzaprine HCl - 10 MG Oral Tablet; TAKE 1 TABLET TWICE DAILY NEEDED;Therapy: 01Aug2020 to (Evaluate:[id number]) Requested for: 03Feb2021; LastRx:03Feb2021 Ordered Ferrous Sulfate 325 (65 Fe) MG Oral Tablet;Therapy: 10Jun2015 to Recorded Iron TABS;Therapy: (Recorded:89Jax9109) to Recorded metFORMIN HCl - 500 MG Oral Tablet;Therapy: 14Sep2020 to Recorded Multi-Vitamin TABS;Therapy: (Recorded:26Nov2011) to Recorded Nystatin 013023 UNIT/GM External Cream;Therapy: 08Sep2012 to Recorded oxyCODONE-Acetaminophen 5-325 MG Oral Tablet; TAKE 1 TO 2 tabs every 8 hours asneeded for pain MDD:3;Therapy: 9 to (Evaluate:43Nrw7766) Requested for: 03Llr9604; LastRx:50Wtr0838 OrderedLD 04/10/21 Pantoprazole Sodium 40 MG Oral Tablet Delayed Release;Therapy: 24Sep2014 to Recorded Vitamin D (Ergocalciferol) 1.25 MG (32132 UT) Oral Capsule; TK 1 C PO WEEKLY;Therapy: 24Jul2010 to Recorded Xarelto 20 MG Oral Tablet;Therapy: 20Owc6971 to Recorded Past Medical History History of Arthritis (V13.4) History of anemia (V12.3) (Z86.2) History of atrial fibrillation (V12.59) (Z86.79) History of blood coagulation disorder (V12.3) (Z86.2) History of depression (V11.8) (Z86.59) History of herpes zoster (V12.09) ( Z86.19) History of hypertension (V12.59) (Z86.79) History of type 2 diabetes mellitus (V12.29) (Z86.39) History of On anticoagulant therapy (V58.61) (Z79.01) xarelto, 20 mg... Dr. Pozo Denied: History of (V22.2) History of Shoulder pain (719.41) (M25.519) Surgical History History of Appendectomy History of Cataract Surgery bilaterally march 2014 History of Gastric Surgery For Morbid Obesity Gastric Bypass Resolved Date: 30 Dec 2015 Revision done 12/30/15 History of Gastric Surgery For Morbid Obesity Gastric Bypass revision December 29, 2015 History of Hernia Repair History of Hysterectomy Denied: History of Implantable Cardioverter-Defibrillator History of Knee Replacement right.... 06/20/[facility] History of Nasal Septal Deviation Repair right wrist Denied: History of Pacemaker Placement History of Shoulder Surgery 2007,2008 right shoulder x2 History of Wrist Surgery right VitalsVital Signs Recorded: [id number] 08:53AM Height: 5 ft 3 inWeight: 247 lb BMI Calcu lated: 43.75 kg/m2BSA Calculated: 2.12Systolic: 138Diastolic: 74Heart Rate: 67Respiration: 16Height measured w/wo shoes: w/shoesPain Scale: 6 Physical ExamGeneral: The patient is a well nourished/well developed, female, who is morbidly obese, who is in no acute distress and appears stated age. Gait and Station: Gait was normal. Psychological: Alert and oriented to person, place and time. Mood and affect are pleasant and appropriate. Judgement intact. Insight normal without delusions or hallucinations. Denies suicidal/homicidal ideation. Assessment 1. Chronic pain (338.29) (G89.29) 2. Chronic right shoulder pain (719.41,338.29) (M25.511,G89.29) Plan 1. Renew: Cyclobenzaprine HCl - 10 MG Oral Tablet; TAKE 1 TABLET TWICE DAILY NEEDED 2. MIPS - Survey Evaluation Evaluation Status: Complete Done: [id number] Depression Screening - Patient's PHQ-9 score is: : N/A - PHQ-9 not performed todayHave you EVER received a Pneumococcal Vaccine...? : Yes - Patient has previously received a Pneumococcal vaccinationFLU - Have you received a flu shot in 2020 ? : No - Influenza not previously received due to patient declined or other patient reasonsBMI for Patients 18 and over : 25 or greater, BMI above normal parameters, follow-up plan documentedDo you use any kind of Tobacco? (smokes or uses smokeless tobacco): : Patient identified as a NON-Tobacco User<OBX.5.1><OBX.5.1.1>WOMEN </OBX.5.1.1><OBX.5.1.2> ANYONE >/= 65 - How many times in the past year have you had 4 or more</OBX.5.1.2></OBX.5.1> drinks in a day? : ZeroMEN < 65 - How many times in the past year have you had 5 or more drinks in a day? : N/A 3. Follow-up in 2 months Follow Up Follow-up Status: Hold For - Scheduling Requested for: [id number] Appointment for 15 or 30 minutes : Schedule 15 minute appointment Medication:. [place]AYCE[place] TONGUE CARRIER Information: TONGUE CARRIER was consulted by my designee and I have reviewed the information presented to me and find no aberrant compliance issues. Patient has been informed. Controlled Substance Prescribed: OXYCODONE . CONTROLLED SUBSTANCE INFORMATION: I advised the patient today/previously regarding treatment with the above controlled substance and/or narcotic. The patient was then informed of the risks, benefits, and alternatives of the narcotic. The risks discussed included but were not limited to physical and/or psychological dependence, tolerance of the medication, drowsiness, sleepiness, balance/coordination problems, confusion, allergic reaction or any other abnormal symptoms. The patient was advised and agreed to use the medication only as prescribed, and not to drive, or operate heavy equipment or machinery. The patient understood and consented to both undergo a narcotic/opiate regimen and agreed to sign and comply with all of the [facility] terms of a controlled substance treatment and agreement. Patient has received a copy of the Opioid instruction sheet. Patient has been counseled on the changes made to their controlled substance and agrees to continue compliance with the controlled substance agreement previously signed. There are no changes in current medications at this visit. Patient instructed to continue current regimen. Treatment includes: FOLLOW UP: The patient should have a follow up visit in 2 months. Miscellaneous: - WEIGHT LOSS: Weight loss was discussed and encouraged. - STONE CLEANER: The patient was counseled on the following: treatment plan and future treatment options. Discussion/SummaryPatient presents today with right shoulder pain. Patient states current medication regimen controls her pain so that she is able to perf orm activities of daily living such as personal hygiene and house chores. Patient would not be able to perform these activities without this medication. This would lead to a more sedentary lifestyle which in turn would worsen her condition. Patient will return to the office for follow-up in 2 months. Patient states her understanding and is in agreement with the treatment plan. Work / School NotePATIENT: if you submit this to your employer as an out of work note please be aware this includes PHI (Protected Health Information). The incident described by the patient is a competent medical cause of this injury. The patient's complaints are consistent with the history of the injury/illness. The patient's history of the injury/illness is consistent with my objective findings. The percentage of temporary impairment is 67 %. The patient is not working at this time. Patient is on permanent disability. Patient is on partial disability. Moderate. Dragon DisclaimerNYSWC Guaranteach Disclaimer: This docum ent was dictated and electronically signed using [employer] Speaking software. A reasonable attempt at proof reading has been made to minimize errors. Please call with any questions. Signatures Electronically signed by : Tomas Hastings NP; Apr 10 2021 9:09AM EST (Author) Electronically signed by : Jose Manuel Paz MD; Apr 10 2021 9:45AM EST Name Value Range Interpretation Code Description Data Yolanda rce(s) Supporting Document(s) ID Date Data Source [id number] 02/06/2021 09:26:[address] [facility] PCName: Cat hy NedraB: 1955Provider: Tae Hastings: 02/06/2021 Chief ComplaintNeck pain that radiates into the right shoulder Chief Complaint 2NYSW VAS PAIN Established: 7 MA completing section: BBibbs History of Present IllnessRecent test/procedures: Patient was asked and denies having any tests since their last visit. Patient was asked and denies being seen by any Physicians since their last visit. At today's visit patient presents with their Self Implanted Devices The patient has the following implanted device(s): Loop recorder. The patient does not have a glucose monitoring device. Patient is not currently working. The patient is being seen for a workers compensation follow-up. The workers compensation date of injury is 05/30/07. Pain Quality: (Neuropathic) burning Pain Quality: (Nociceptive) aching, dull and stabbing Timing: constant Palliation: opioid analgesics Exacerbating: arm movement, head turning left, head turning right, lifting and neck movement Pain Score: a current pain level of 8/10, a minimum pain level of 4/10 and a maximum pain level of 10/10. Condition type: The patient is being seen for a chronic condition. PAIN LOCATION: the pain is located in the neck, radiates to the right shoulder and the pain is in the neck more than the arms. The etiology of this injury/condition is related to an injury / accident. INJURY SETTING: at work. INJURY MECHANISM: The injury resulted from repetitive motion and trauma. REVIEW OF PAST DIAGNOSTICS: have included: MRI. PAST TREATMENT has included: OPIOID ANALGESICS (effective). ASSOCIATED SYMPTOMS: include muscle pain/spasm and radiating. FUNCTIONAL LIMITATIONS: The patient's functional status is limited as follows: ability to participate in aerobic activity and participate in hobbies. MEDICATION SIDE EFFECTS experienced by patient are: no known medication side effects. Active Problems 1. Chronic pain (338.29) (G89.29) 2. Chronic right shoulder pain (719.41,338.29) (M25.511,G89.29) 3. [facility] current use of opiate analgesic (V58.69) (Z79.891) 4. Mid back pain (724.5) (M54.9) 5. Mid back pain on right side (724.5) (M54.9) 6. Spasm of paraspinal muscle (724.8) (M62.830) 7. Spondylosis, thoracic (721.2) (M47.814) 8. Taking Blood Thinners Allergies Bactrim TABS Hives;; Recorded By: Luis Fernando Song; 10/26/2011 9:16:33 AM Clindamycin Hives;; Recorded By: Niki Danielle; 11/26/2011 9:57:33 AM Codeine Derivatives Hives;; Recorded By: Luis Fernando Song; 10/26/2011 9:16:32 AM Doxycycline Hyclate CAPS Hives;; Recorded By: Luis Fernando Song; 10/26/2011 9:16:33 AM Novocain SOLN Hives;; Recorded By: Luis Fernando Song; 10/26/2011 9:16:33 AM Penicillins Hives;; Recorded By: Luis Fernando Song; 10/26/2011 9:16:32 AM Talwin NX TABS Hives;; Recorded By: Luis Fernando Song; 10/26/2011 9:16:32 AM Tetracyclines Hives;; Recorded By: Luis Fernando Song; 10/26/2011 9:16:33 AM Vicodin TABS Itching; Rash; Updated By: Dominique Anton; 11/26/2016 8:11:03 AMDenied Adhesive Tape Recorded By: Luis Fernando Song; 10/26/2011 9:16:33 AM Iodinated Contrast Media Recorded By: Sara March; 12/01/2015 1:49:30 PM Latex Recorded By: Luis Fernando Song; 10/26/2011 9:16:33 AM Current Meds Cyclobenzaprine HCl - 10 MG Oral Tablet; TAKE 1 TABLET TWICE DAILY NEEDED;Therapy: 01Aug2020 to (Evaluate:[id number]) Requested for: 03Feb2021; LastRx:03Feb2021 Ordered Ferrous Sulfate 325 (65 Fe) MG Oral Tablet;Therapy: 10Jun2015 to Recorded Iron TABS;Therapy: (Recorded:97Hzk5243) to Recorded metFORMIN HCl - 500 MG Oral Tablet;Therapy: 14Sep2020 to Recorded Multi-Vitamin TABS;Therapy: (Recorded:26Nov2011) to Recorded Nystatin 189589 UNIT/GM External Cream;Therapy: 08Sep2012 to Recorded oxyCODONE-Acetaminophen 5-325 MG Oral Tablet; TAKE 1 TO 2 tabs every 8 hours asneeded for pain MDD:3;Therapy: 02Apr2019 to (Evaluate:38Ids1090) Requested for: 02Feb2021; LastRx:02Feb2021 OrderedLD 02/06/21 Pantoprazole Sodium 40 MG Oral Tablet Delayed Release;Therapy: 24Sep2014 to Recorded Vitamin D (Ergocalciferol) 1.25 MG (40220 UT) Oral Capsule; TK 1 C PO WEEKLY;Therapy: 24Jul2010 to Recorded Xarelto 20 MG Oral Tablet;Therapy: 18Jul2015 to Recorded Past Medical History History of Arthritis (V13.4) History of anemia (V12.3) (Z86.2) History of atri al fibrillation (V12.59) (Z86.79) History of blood coagulation disorder (V12.3) (Z86.2) History of depression (V11.8) (Z86.59) History of herpes zoster (V12.09) (Z86.19) History of hypertension (V12.59) (Z86.79) History of type 2 diabetes mellitus (V12.29) (Z86.39) History of On anticoagulant therapy (V58.61) (Z79.01) xarelto, 20 mg... Dr. Pozo Denied: History of (V22.2) History of Shoulder pain (719.41) (M25.519) Surgical History History of Appendectomy History of Cataract Surgery bilaterally march 2014 History of Gastric Surgery For Morbid Obesity Gastric Bypass Resolved Date: 30 Dec 2015 Revision done 12/30/15 History of Gastric Surgery For Morbid Obesity Gastric Bypass revision December 29, 2015 History of Hernia Repair History of Hysterectomy Denied: History of Implantable Cardioverter-Defibrillator History of Knee Replacement right.... 06/20/[facility] History of Nasal Septal Deviation Repair right wrist Denied: History of Pacemaker Placement History of Shoulder Surgery 2007,2009 right shoulder x2 History of Wrist Surgery right VitalsVital Signs Recorded: 06Feb2021 08:48AM Height: 5 ft 3.5 inWeight: 257 lb BMI Calculated: 44.81BSA Calculated: 2.16Systolic: 122Diastolic: 82Heart Rate: 75Respiration: 20Temperature: 98.6 FHeight measured w/wo shoes: w/shoesPain Scale: 7Depression: 0 Physical ExamGeneral: The patient is a well nourished/well developed, female, who is obese, who is in no acute distress and appears stated age. Gait and Station: Gait was normal. Psychological: Alert and oriented to person, place and time. Mood and affect are pleasant and appropriate. Judgement intact. Insight normal without delusions or hallucinations. Denies suicidal/homicidal ideation. Assessment 1. Chronic pain (338.29) (G89.29) 2. Chronic right shoulder pain (719.41,338.29) (M25.511,G89.29) Plan 1. Renew: oxyCODONE-Acetaminophen 5-325 MG Oral Tablet; TAKE 1 TO 2 tabs every 8 hours as needed for pain MDD:3LD 02/06/21 2. MIPS - Survey Evaluation Evaluation Status: Complete Done: 57Bhi0281Wfwvzm Depression Screening - Patient's PHQ-9 score is: : 0 - 4 none ...No fup plan neededHave you EVER received a Pneumococcal Vaccine...? : Yes - Patient has previously received a Pneumococcal vaccinationFLU - Have you received a flu shot in 2020 ? : No - Influenza not previously received due to patient declined or other patient reasonsBMI for Patients 18 and over : 25 or greater, BMI above normal parameters, follow-up plan documentedDo you use any kind of Tobacco? (smokes or uses smokeless tobacco): : Patient identified as a NON-Tobacco User<OBX.5.1><OBX.5.1.1>WOMEN </OBX.5.1.1><OBX.5.1.2> ANYONE >/= 65 - How many times in the past year have you had 4 or more</OBX.5.1.2></OBX.5.1> drinks in a day? : ZeroMEN < 65 - How many times in the past year have you had 5 or more drinks in a day? : N/A 3. Follow-up in 2 months Follow Up Follow-up Status: Hold For - Scheduling Requested for: 86Kup4937Sortcedq Appointment for 15 or 30 minutes : Schedule 15 minute appointment Medication:. [place] TONGUE CARRIER Information: TONGUE CARRIER was consulted by my designee and I have reviewed the information presented to me and find no aberrant compliance issues. Patient has been informed. Controlled Substance Prescribed: OXYCODONE . CONTROLLED SUBSTANCE INFORMATION: I advised the patient today/previously regarding treatment with the above controlled substance and/or narcotic. The patient was then informed of the risks, benefits, and alternatives of the narcotic. The risks discussed included but were not limited to physical and/or psychological dependence, tolerance of the medication, drowsiness, sleep iness, balance/coordination problems, confusion, allergic reaction or any other abnormal symptoms. The patient was advised and agreed to use the medication only as prescribed, and not to drive, or operate heavy equipment or machinery. The patient understood and consented to both undergo a narcotic/opiate regimen and agreed to sign and comply with all of the [facility] terms of a controlled substance treatment and agreement. Patient has received a copy of the Opioid instruction sheet. Patient has been counseled on the changes made to their controlled substance and agrees to continue compliance with the controlled substance agreement previously signed. There are no changes in current medications at this visit. Patient instructed to continue current regimen. Treatment includes: FOLLOW UP: The patient should have a follow up visit in 2 months. Miscellaneous: - WEIGHT LOSS: Weight loss was discussed and encouraged. PHQ-9 Patient's PHQ-9 score was 0-4 suggesting a Minimal level of Depression. No further plan is required at this time. The PHQ-9 was administered today as part of routine health risk screening for depression and psychosocial functioning. Screening for depression in chronic pain patients is standard of care due to the high rate of co-morbidity between these illnesses. In conjunction with other health risk assessment screening data, such as the Opioid Risk Tool and Visual Analogue Scale, this information is imperative for determining the patients risk factors and potential comorbidities prior to determining a safe and effective treatment plan. - STONE CLEANER: The patient was counseled on the following: treatment plan and future treatment options. Discussion/SummaryPatient presents today with neck pain that radiates into the right shoulder. Patient states current medication regimen controls her pain so that she is able to perform activities of daily living such as personal hygiene and house chores. Patient will continue with this and return to the office for follow-up in 2 months. Patient states her understanding and is in agreement with the treatment plan. Work / School NotePATIENT: if you submit this to your employer as an out of work note please be aware this includes PHI (Protected Health Information). The incident described by the patient is a competent medical cause of this injury. The patient's complaints are consistent with the history of the injury/illness. The patient's history of the injury/illness is consistent with my objective findings. The percentage of temporary impairment is 67 %. The patient is not working at this time. Patient is on permanent disability. Patient is on partial disability. Moderate. Dragon DisclaimerNYSWC Guaranteach Disclaimer: This document was dictated and electronically signed using [employer] Speaking software. A reasonable attempt at proof reading has been made to minimize errors. Please call with any questions. Signatures Electronically signed by : Tomas Hastings NP; Feb 06 2021 9:03AM EST (Author) Electronically signed by : Harsh Cobb MD; Feb 06 2021 9:26AM EST Name Value Range Interpretation Code Description Data Yolanda rce(s) Supporting Document(s) ID Date Data Source [id number] 12/08/2020 10:39:08 AM EDT [facility] PCName: Cat hy JuanitaDOB: 1955Provider: Tomas HastingsDOS: 11/18/2020 Chief Complaintright shoulder and mid back pain Chief Complaint 2NYSW VAS PAIN Established: SHAYNE completing section: MORALES BELLA History of Present IllnessA Urine Drug Screen was ordered for Flor Grant and collected on site today 11/18/2020. Creatinine has been ordered as well for specimen validity, not for kidney function. Preliminary UDS results are not final and should not be used to determine patient care or plan of treatment. Initially a qualitative immunoassay screen will be done. Please note this is not a dip test. Any positive findings or negative findings that are out of compliance will be further tested with a more comprehensive quantitative confirmation LCMS study. It is part of the normal prescribing protocol of controlled substances and is considered standard of care. Recent test/procedures: Patient was asked and denies having any tests since their last visit. Patient was asked and denies being seen by any Physicians since their last visit. At today's visit patient presents with their Self Implanted Devices The patient has the following implanted device(s): Loop Recorder. The patient does not have a glucose monitoring device. Patient is not currently working. The patient is being seen for a workers compensation follow-up. The workers compensation date of injury is 05/30/2007. Pain Quality: (Neuropathic) burning Pain Quality: (Nociceptive) aching, dull and stabbing Timing: constant Palliation: opioid analgesics Exacerbating: arm movement, bending, head turn ing left, head turning right, lifting, neck movement, standing and twisting Pain Score: a current pain level of 8/10, a minimum pain level of 6/10 and a maximum pain level of 10/10. Condition type: The patient is being seen for a chronic condition. PAIN LOCATION: the pain is located in the mid-back and in the right shoulder. The etiology of this injury/condition is related to an injury / accident. INJURY SETTING: at work. INJURY MECHANISM: The injury resulted from trauma. REVIEW OF PAST DIAGNOSTICS: have included: MRI. PAST TREATMENT has included: OPIOID ANALGESICS (effective). ASSOCIATED SYMPTOMS: include muscle pain/spasm and radiating. FUNCTIONAL LIMITATIONS: The patient's functional status is limited as follows: ability to participate in aerobic activity and participate in hobbies. MEDICATION SIDE EFFECTS experienced by patient are: no known medication side effects. Review of SystemsConstitutional: Normal. Eyes: Normal. ENT: normal. Cardiovascular: Normal. Respiratory: Normal. Ga strointestinal: Normal. Genitourinary: Normal. Musculoskeletal: midback pain, neck pain and muscle pain. Integumentary: Normal. Neurological: a burning sensation. Psychiatric: Normal. Endocrine: Normal. Hematologic/Lymphatic: Normal. Patient maintains at today's visit there has been no change in his/her hematologic history. I reviewed the above with the patient and I feel the ROS to be negative/normal other than Musculoskeletal and neurological. Active Problems 1. Chronic pain (338.29) (G89.29) 2. Chronic right shoulder pain (719.41,338.29) (M25.511,G89.29) 3. [facility] current use of opiate analgesic (V58.69) (Z79.891) 4. Mid back pain (724.5) (M54.9) 5. Mid back pain on right side (724.5) (M54.9) 6. Spasm of paraspinal muscle (724.8) (M62.830) 7. Spondylosis, thoracic (721.2) (M47.814) 8. Taking Blood Thinners Allergies Bactrim TABS Hives;; Recorded By: Luis Fernando Song; 10/26/2011 9:16:33 AM Clindamycin Hives;; Recorded By: Niki Danielle; 11/26/2011 9:57:33 AM Codeine Derivatives Hives;; Recorded By: Luis Fernando Song; 10/26/2011 9:16:32 AM Doxycycline Hyclate CAPS Hives;; Recorded By: Luis Fernando Song; 10/26/2011 9:16:33 AM Novocain SOLN Hives;; Recorded By: Luis Fernando Song; 10/26/2011 9:16:33 AM Penicillins Hives;; Recorded By: Luis Fernando Song; 10/26/2011 9:16:32 AM Talwin NX TABS Hives;; Recorded By: Luis Fernando Song; 10/26/2011 9:16:32 AM Tetracyclines Hives;; Recorded By: Luis Fernando Song; 10/26/2011 9:16:33 AM Vicodin TABS Itching; Rash; Updated By: Dominique Anton; 11/26/2016 8:11:03 AMDenied Adhesive Tape Recorded By: Luis Fernando Song; 10/26/2011 9:16:33 AM Iodinated Contrast Media Recorded By: Sara March; 12/01/2015 1:49:30 PM Latex Recorded By: Luis Fernando Song; 10/26/2011 9:16:33 AM Current Meds Cyclobenzaprine HCl - 10 MG Oral Tablet; TAKE 1 TABLET TWICE DAILY NEEDED;Therapy: 67Qpr3250 to (Evaluate:31Aug2020) Requested for: [id number]; LastRx:[id number] Ordered Ferrous Sulfate 325 (65 Fe) MG Oral Tablet;Therapy: 10Jun2015 to Recorded Iron TABS;Therapy: (Recorded:77Mqy8694) to Recorded metFORMIN HCl - 500 MG Oral Tablet;Therapy: 14Sep2020 to Recorded Multi-Vitamin TABS;Therapy: (Recorded:26Nov2011) to Recorded Nystatin 002233 UNIT/GM External Cream;Therapy: 08Sep2012 to Recorded oxyCODONE-Acetaminophen 5-325 MG Oral Tablet; TAKE 1 TO 2 tabs every 8 hours asneeded for pain MDD:3;Therapy: 02Apr2019 to (Evaluate:18Dec2020) Requested for: 18Nov2020 RecordedLD 11/18/20 Pantoprazole Sodium 40 MG Oral Tablet Delayed Release;Therapy: 24Sep2014 to Recorded Vitamin D (Ergocalciferol) 1.25 MG (12223 UT) Oral Capsule; TK 1 C PO WEEKLY;Therapy: 24Jul2010 to Recorded Xarelto 20 MG Oral Tablet;Therapy: 18Jul2015 to Recorded Past Medical History History of Arthritis (V13.4) History of anemia (V12.3) (Z86.2) History of atrial fibrillation (V12.59) (Z86.79) History of blood coagulation disorder (V12.3) (Z86.2) History of depression (V11.8) (Z86.59) History of herpes zoster (V12.09) (Z86.19) History of hypertension (V12.59) (Z86.79) History of type 2 diabetes mellitus (V12.29) (Z86.39) History of On anticoagulant therapy (V58.61) (Z79.01) xarelto, 20 mg... Dr. Pozo Denied: History of (V22.2) History of Shoulder pain (719.41) (M25.519) Surgical History History of Appendectomy History of Cataract Surgery bilaterally march 2014 History of Gastric Surgery For Morbid Obesity Gastric Bypass Resolved Date: 30 Dec 2015 Revision done 12/30/15 History of Gastric Surgery For Morbid Obesity Gastric Bypass revision December 29, 2015 History of Hernia Repair History of Hysterectomy Denied: History of Implantable Cardioverter-Defibrillator History of Knee Replacement right.... 06/20/15 [facility] History of Nasal Septal Deviation Repair right wrist Denied: History of Pacemaker Placement History of Shoulder Surgery 2007,2008 right shoulder x2 History of Wrist Surgery right VitalsVital Signs Recorded: 18Nov2020 08:58AM Height: 5 ft 4 inWeight: 273 lb BMI Calculated: 46.86BSA Calculated: 2.23Systolic: 138, SittingDiastolic: 82, SittingHeart Rate: 72Respiration: 20Temperature: 96.3 FPain Scale: 8 Physical ExamGeneral: The patient is a well nourished/well developed, female, who is obese, who is in no acute distress and appears stated age. Eyes: Lids are atraumatic, no lesions, sclerae are anicteric. Ears, Nose, Mouth, Throat: external ears and nose without trauma. Patient wearing a mask due to COVID-19. Respiratory: Normal chest expansion and respiratory effort. Gait and Station: Gait was antalgic. Psychological: Alert and oriented to person, place and time. Mood and affect are pleasant and appropriate. Judgement intact. Insight normal without delusions or hallucinations. Denies suicidal/homicidal ideation. Assessment 1. Chronic pain (338.29) (G89.29) 2. Chronic right shoulder pain (719.41,338.29) (M25.511,G89.29) 3. Mid back pain on right side (724.5) (M54.9) 4. Mid back pain (724.5) (M54.9) 5. Spondylosis, thoracic (721.2) (M47.814) Plan 1. UDS-LAB WC / NF ([facility] Urine Drug Screen); [Do Not Release]; Specimen Source:Urine; Status:In Progress - Specimen/Data Collected; Done: 18Nov2020 2. Follow-up in 2 months Follow Up Follow-up Status: Hold For - Scheduling Requested for: [id number] Appointment for 15 or 30 minutes : Schedule 15 minute appoint ment Medication:. [facility] TONGUE CARRIER Information: TONGUE CARRIER was consulted by my designee and I have reviewed the information presented to me and find no aberrant compliance issues. Patient has been informed. Controlled Substance Prescribed: HYDROCODONE . CONTROLLED SUBSTANCE INFORMATION: I advised the patient today/previously regarding treatment with the above controlled substance and/or narcotic. The patient was then informed of the risks, benefits, and alternatives of the narcotic. The risks discussed included but were not limited to physical and/or psychological dependence, tolerance of the medication, drowsiness, sleepiness, balance/coordination problems, confusion, allergic reaction or any other abnormal symptoms. The patient was advised and agreed to use the medication only as prescribed, and not to drive, or operate heavy equipment or machinery. The patient understood and consented to both undergo a narcotic/opiate regimen and agreed to sign and comply with all of the [facility] terms of a controlled substance treatment and agreement. Patient has received a copy of the Opioid instruction sheet. Patient has been counseled on the changes made to their controlled substance and agrees to continue compliance with the controlled substance agreement previously signed. UDS: This is an established patient and is on ongoing opioid therapy. A UDS is being obtained today, the patient has previously consented to UDS as part of the Controlled Substance and Treatment Agreement. The reason for today's UDS is: patient was selected at random and scored as low risk on the opioid risk assessment. Creatinine has been ordered as well for specimen validity, not for kidney function. Preliminary UDS results are not final and should not be used to determine patient care or plan of treatment. Initially a qualitative immunoassay screen will be done. Any positive findings or negative findings that are out of compliance will be further tested with a more comprehensive quantitative confirmation LCMS study. It is part of the normal prescribing protocol of controlled substances and is considered standard of care. Treatment includes: FOLLOW UP: The patient should have a follow up visit in 2 months. - STONE CLEANER: The patient was counseled on the following: treatment plan and future treatment options. Discussion/SummaryPatient presents today with right shoulder pain and mid back pain. Patient states current medication regimen controls her pain so that she is able to perform activities of daily living such as first-line doing house chores. Without these medications patient would not be able to perform these activities. Patient will return to the office for follow-up in 2 months. Th e hydrocodone will be reduced to 5/325mg so we can wean her further. Patient states her understanding and is in agreement with the treatment plan Work / School NotePATIENT: if you submit this to your employer as an out of work note please be aware this includes PHI (Protected Health Information). The incident described by the patient is a competent medical cause of this injury. The patient's complaints are consistent with the history of the injury/illness. The patient's history of the injury/illness is consistent with my objective findings. The percentage of temporary impairment is 67 %. The patient is not working at this time. Patient is on permanent disability. Patient is on partial disability. Moderate. Preggerson DisclaimerNYSWC Guaranteach Disclaimer: This document was dictated and electronically signed using NGI software. A reasonable attempt at proof reading has been made to minimize errors. Please call with any questions. Signatures Electronically signed by : Tomas Hastings NP; Nov 18 2020 9:25AM EST (Author) Electronically signed by : Tomas Hastings NP; Nov 18 2020 9:27AM EST (Author) Electronically signed by : Tomas Hastings NP; Nov 18 2020 10:13AM EST (Author) Electronically signed by : Harsh Cobb MD; Nov 18 2020 1:08PM EST Name Value Range Interpretation Code Description Data Yolanda rce(s) Supporting Document(s) ID Date Data Source [id number] 10/20/2020 12:00:00 PM EST [facility] Name Value Range Interpretation Code Description Data Yolanda rce(s) Supporting Document(s) SARS coronavirus 2 RNA Not Detected [facility] [place] This lab was ordered by [facility] and reported by [facility]. ID Date Data Source [id number] 09/14/2020 10:34:[address] [facility], PCName: Lacy soliman JuanitaDOB: 1955Provider: Tae Hastings: 09/14/2020 Chief ComplaintMid back pain and right shoulder pain Chief Complaint 2NYSW VAS PAIN Established: SHAYNE completing section: MORALES BELLA History of Present IllnessRecent test/procedures: Patient was asked and denies having any tests since their last visit. Patient was asked and denies being seen by any Physicians since their last visit. At today's visit patient presents with their Self Implanted Devices The patient has the following implanted device(s): Loop Recorder. The patient does not have a glucose monitoring device. Patient is not currently working. The patient is being seen for a workers compensation follow-up. The workers compensation date of injury is 05/30/2007. Pain Quality: (Neuropathic) burning Pain Quality: (Nociceptive) aching, dull and stabbing Timing: constant Palliation: opioid analgesics Exacerbating: bending, lifting, standing and twisting Pain Score: a current pain level of 7/10, a minimum pain level of 4/10 and a maximum pain level of 9/10. Condition type: The patient is being seen for a chronic condition. PAIN LOCATION: the pain is located in the mid-back , and in the right shoulder. The etiology of this injury/condition is related to an injury / accident. INJURY SETTING: at work. INJURY MECHANISM: The injury resulted from lifting and twisting. REVIEW OF PAST DIAGNOSTICS: have included: MRI. PAST TREATMENT has included: OPIOID ANALGESICS (effective). ASSOCIATED SYMPTOMS: include muscle pain/spasm and radiating. FUNCTIONAL LIMITATIONS: The patient's functional status is limited as follows: ability to participate in aerobic activity and participate in hobbies. MEDICATION SIDE EFFECTS experienced by patient are: no known medication side effects. Review of SystemsConstitutional: Normal. Eyes: Normal. ENT: normal. Cardiovascular: Normal. Respiratory: Normal. Gastrointestinal: Normal. Genitourinary: Normal. Musculoskeletal: midback pain, muscle pain and joint pain. Integumentary: Normal. Neurological: a burning sensation. Psychiatric: Normal. Endocrine: Normal. Hematologic/Lymphatic: Normal. Patient maintains at today's visit there has been no change in his/her hematologic history. I reviewed the above with the patient and I feel the ROS to be negative/normal other than Musculoskeletal and neurological. Active Problems 1. Chronic pain (338.29) (G89.29) 2. 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 Mid back pain (724.5) (M54.9) 5. Mid back pain on right side (724.5) (M54.9) 6. Spasm of paraspinal muscle (724.8) (M62.830) 7. Spondylosis, thoracic (721.2) (M47.814) 8. Taking Blood Thinners Allergies Bactrim TABS Hives;; Recorded By: Luis Fernando Song; 10/26/2011 9:16:33 AM Clindamycin Hives;; Recorded By: Niki Danielle; 11/26/2011 9:57:33 AM Codeine Derivatives Hives;; Recorded By: Luis Fernando Song; 10/26/2011 9:16:32 AM Doxycycline Hyclate CAPS Hives;; Recorded By: Luis Fernando Song; 10/26/2011 9:16:33 AM Novocain SOLN Hives;; Recorded By: Luis Fernando Song; 10/26/2011 9:16:33 AM Penicillins Hives;; Recorded By: Luis Fernando Song; 10/26/2011 9:16:32 AM Talwin NX TABS Hives;; Recorded By: Luis Fernando Song; 10/26/2011 9:16:32 AM Tetracyclines Hives;; Recorded By: Luis Fernando Song; 10/26/2011 9:16:33 AM Vicodin TABS Itching; Rash; Updated By: Dominique Anton; 11/26/2016 8:11:03 AMDenied Adhesive Tape Recorded By: Luis Fernando Song; 10/26/2011 9:16:33 AM Iodinated Contrast Media Recorded By: Sara March; 12/01/2015 1:49:30 PM Latex Recorded By: Luis Fernando Song; 10/26/2011 9:16:33 AM Current Meds Cyclobenzaprine HCl - 10 MG Oral Tablet; TAKE 1 TABLET TWICE DAILY NEEDED;Therapy: [id number] to (Evaluate:31Aug2020) Requested for: 15Lkz1263; LastRx:[id number] Ordered Ferrous Sulfate 325 (65 Fe) MG Oral Tablet;Therapy: 10Jun2015 to Recorded Iron TABS;Therapy: (Recorded:69Kqg6649) to Recorded metFORMIN HCl - 500 MG Oral Tablet;Therapy: 14Sep2020 to Recorded Multi-Vitamin TABS;Therapy: (Recorded:26Nov2011) to Recorded Nystatin 429752 UNIT/GM External Cream;Therapy: 08Sep2012 to Recorded oxyCODONE-Acetaminophen 7.5-325 MG Oral Tablet; TAKE 1 TABLET EVERY 8 HOURSAS NEEDED FOR PAIN;Therapy: 86Lez2527 to (Evaluate:03Wnv2602) Requested for: 07Sep2020; LastRx:09Uvx2372 NtfmakdBE20/7/2020 Pantoprazole Sodium 40 MG Oral Tablet Delayed Release;Therapy: 24Sep2014 to Recorded Vitamin D (Ergocalciferol) 1.25 MG (49147 UT) Oral Capsule; TK 1 C PO WEEKLY;Therapy: 24Jul2010 to Recorded Xarelto 20 MG Oral Tablet;Therapy: 18Jul2015 to Recorded Past Medical History History of Arthritis (V13.4) History of anemia (V12.3) (Z86.2) History of atrial fibrillation (V12.59) (Z86.79) History of blood coagulation disorder (V12.3) (Z86.2) History of depression (V11.8) (Z86.59) History of herpes zoster (V12.09) (Z86.19) History of hypertension (V12.59) (Z86.79) History of type 2 diabetes mellitus (V12.29) (Z86.39) History of On anticoagulant therapy (V58.61) (Z79.01) xarelto, 20 mg... Dr. Pozo Denied: History of (V22.2) History of Shoulder pain (719.41) (M25.519) Surgical History History of Appendectomy History of Cataract Surgery bilaterally march 2014 History of Gastric Surgery For Morbid Obesity Gastric Bypass Resolved Date: 30 Dec 2015 Revision done 12/30/15 History of Gastric Surgery For Morbid Obesity Gastric Bypass revision December 29, 2015 History of Hernia Repair History of Hysterectomy Denied: History of Implantable Cardioverter-Defibrillator History of Knee Replacement right.... 06/20/15 [facility] History of Nasal Septal Deviation Repair right wrist Denied: History of Pacemaker Placement History of Shoulder Surgery 2007,2009 right shoulder x2 History of Wrist Surgery right Family History Family history of Arthritis (V17.7) Family history of Diabetes Mellitus (V18.0) Family history of Heart Disease (V17.49) Family history of Hypertension (V17.49) Family history of Arthritis (V17.7) Family history of Hypertension (V17.49) Family history of Hypertension (V17.49) Family history of Brain Cancer (V16.8) Family history of Colon Cancer (V16.0) Family history of Arthritis (V17.7) Family history of Brain Cancer (V16.8) Family history of Colon Cancer (V16.0) Family history of Diabetes Mellitus (V18.0) Family history of Heart Disease (V17.49) Family history of Hypertension (V17.49) Social History Current non-drinker of alcohol (V49.89) (Z78.9) Currently On Disability Denied: History of Drug Use Marital History - Single Never smoker VitalsVital Signs Recorded: 14Sep2020 10:10AM Height: 5 ft 4 inWeight: 276 lb BMI Calculated: 47.38BSA Calculated: 2.24Systolic: 142, SittingDiastolic: 88, SittingHeart Rate: 70Respiration: 20Temperature: 98.6 FPain Scale: 7 Physical ExamGeneral: The patient is a well nourished/well developed, female, who is morbidly obese, who is in no acute distress and appears stated age. Eyes: Lids are atraumatic, no lesions, sclerae are anicteric. Ears, Nose, Mouth, Throat: external ears and nose without trauma. Patient wearing a mask due to COVID-19. Respiratory: Normal chest expansion and respiratory effort. Gait and Station: Gait was normal. Skin: Warm, dry, acyanotic. Psychological: Alert and oriented to person, place and time. Mood and affect are pleasant and appropriate. Judgement intact. Insight normal without delusions or hallucinations. Denies suicidal/homicidal ideation. Assessment 1. Chronic pain (338.29) (G89.29) 2. Chronic right shoulder pain (719.41,338.29) (M25.511,G89.29) 3. Mid back pain (724.5) (M54.9) 4. Mid back pain on right side (724.5) (M54.9) 5. Spondylosis, thoracic (721.2) (M47.814) Plan 1. Follow-up in 2 months Follow Up Follow-up Status: Hold For - Scheduling Requested for: [id number] Appointment for 15 or 30 minutes : Schedule 15 minute appointment Medication:. [facility] TONGUE CARRIER Information: TONGUE CARRIER was consulted by my designee and I have reviewed the information presented to me and find no aberrant compliance issues. Patient has been informed. Controlled Substance Prescribed: HYDROCODONE . CONTROLLED SUBSTANCE INFORMATION: I advised the patient today/previously regarding treatment with the above controlled substance and/or narcotic. The patient was then informed of the risks, benefits, and alternatives of the narcotic. The risks discussed included but were not limited to physical and/or psychological dependence, tolerance of the medication, drowsiness, sleepiness, balance/coordination problems, confusion, allergic reaction or any other abnormal symptoms. The patient was advised and agreed to use the medication only as prescribed, and not to drive, or operate heavy equipment or machinery. The patient understood and consented to both undergo a narcotic/opiate regimen and agreed to sign and comply with all of the [facility] terms of a controlled substance treatment and agreement. Patient has received a copy of the Opioid instruction sheet. Patient has been counseled on the changes made to their controlled substance and agrees to continue compliance with the controlled substance agreement previously signed. There are no changes in current medications at this visit. Patient instructed to continue current regimen. Treatment includes: FOLLOW UP: The patient should have a follow up visit in 2 months. - STONE CLEANER: The patient was counseled on the following: treatment plan and future treatment options. Discussion/SummaryPatient presents today with mid back pain and right shoulder pain. Patient states the reduction in pain medication was very hard to tolerate. I am going to wait until the next appointment to reduce it any further. Patient will continue on this dose and return to the office for follow-up in 2 months. Patient states her understanding and is in agreement with the treatment plan. Work / School NotePATIENT: if you submit this to your employer as an out of work note please be aware this includes PHI (Protected Health Information). The incident described by the patient is a competent medical cause of this injury. The patient's complaints are consistent with the history of the injury/illness. The patient's history of the injury/illness is consistent with my objective findings. The percentage of temporary impairment is 67 %. The patient is not working at this time. Patient is on permanent disability. Patient is on partial disability. Moderate. Dragon DisclaimerNYSWC Guaranteach Disclaimer: This document was dictated and electronically signed using [employer] Speaking software. A reasonable attempt at proof reading has been made to minimize errors. Please call with any questions. Signatures Electronically signed by : Tomas Hastings NP; Sep 14 2020 10:22AM EST (Author) Electronically signed by : Jose Manuel Paz MD; Sep 14 2020 10:34AM EST Name Value Range Interpretation Code Description Data Yolanda rce(s) Supporting Document(s) ID Date Data Source [id number] 08/16/2020 12:00:00 AM EST eCW1 ([facility]) Name Value Range Interpretation Code Description Data Yolanda rce(s) Supporting Document(s) Microalbumin/Creatinine [Mass Ratio] in Urine 207.0 CREATININE, URINE eCW1 ([facility]) Microalbumin/Creatinine [Ratio] in Urine 11.2 0.0-30.0 ANNY/CREAT RATIO eCW1 ([facility]) Albumin/Creatinine [Mass Ratio] in Urine 23.3 MALB URINE SIEMENS eCW1 ([facility]) ID Date Data Source TOTAL IRON BINDING CAPACIT 08/16/2020 12:00:00 AM EST eCW1 ( [facility]) Name Value Range Interpretation Code Description Data Yolanda rce(s) Supporting Document(s) 34 50-170 IRON (FE) eCW1 ([facility]) 386 250-450 TOTAL IRON BINDING CAPACI TY eCW1 ([facility]) 8.8 13.2-45.0 PERCENT SATURATION eCW1 ([facility]) ID Date Data Source FERRITIN 08/16/2020 12:00:00 AM EST eCW1 ([facility]) Name Value Range Interpretation Code Description Data Yolanda rce(s) Supporting Document(s) 17 [id number] FERRITIN eCW1 ([facility]) ID Date Data Source [id number] 08/01/2020 08:31:16 PM [facility] PCName: Cat hy JuanitaDOB: 1955Provider: Tessie Cobb: 08/01/2020 Chief ComplaintRight-sided mid-back pain and shoulder pain. 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 Patient is not currently working. Implanted Devices The patient has the following implanted device(s): loop recorder. Glucose Monitor Device The patient does not have a glucose monitoring device. The patient is being seen for a follow-up with MD. History of Present IllnessPain Location: The pain is located in the mid-back on the right side and in the sh oulder and radiates to the right flank. Pain Quality: The pain is described as sharp and aching. Timing: The pain is constant but intermittently worsened by certain activities. Progression: The pain is unchanged. Palliation (Relieving Factors): These include medication and rest. Exacerbating Factors: These include activity, particularly lifting her right upper extremity over her head which tends to throw her into a right-sided mid-back spasm. Pain Score: The severity ranges in intensity from a 4 to 8/10 and is rated a 6/10 today. <OBX.5.1><OBX.5.1.1>Associated Signs </OBX.5.1.1><OBX.5.1.2> Symptoms: Associated symptoms include muscle pain and spasms. </OBX.5.1.2></OBX.5.1>Functional Limitations: Functional limitations include difficulty raising her right upper extremity over her head. DOI/DOO: WC DOI 05/30/07The inciting event was a work-related injury to her right shoulder and thoracic spine on 05/30/2007. Past Treatment Effectiveness: Effective treatments: The patient has been maintained on oxycodone/acetaminophen 10/325 mg 3 times daily for breakthrough pain in addition to using tizanidine. Interval History: The patient has had an independent medical examination on 03/31/2020 which was reviewed. Review of SystemsConstitutional: Normal. Eyes: Normal. ENT: normal. Cardiovascular: Normal. Respiratory: Normal. Gastrointestinal: Normal. Genitourinary: Normal. Musculoskeletal: upper back pain. Integumentary: Normal. Neurological: Normal. Psychiatric: Normal. Endocrine: Normal. Hematologic/Lymphatic: Normal. I reviewed the above with the patient and I feel the ROS to be negative/normal. Active Problems 1. Chronic pain (338.29) (G89.29) 2. 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 Mid back pain (724.5) (M54.9) 5. Spondylosis, thoracic (721.2) (M47.814) 6. Taking Blood Thinners Allergies Bactrim TABS Hives;; Recorded By: Luis Fernando Song; 10/26/2011 9:16:33 AM Clindamycin Hives;; Recorded By: Niki Danielle; 11/26/2011 9:57:33 AM Codeine Derivatives Hives;; Recorded By: Luis Fernando Song; 10/26/2011 9:16:32 AM Doxycycline Hyclate CAPS Hives;; Recorded By: Luis Fernando Song; 10/26/2011 9:16:33 AM Novocain SOLN Hives;; Recorded By: Luis Fernando Song; 10/26/2011 9:16:33 AM Penicillins Hives;; Recorded By: Luis Fernando Song; 10/26/2011 9:16:32 AM Talwin NX TABS Hives;; Recorded By: Luis Fernando Song; 10/26/2011 9:16:32 AM Tetracyclines Hives;; Recorded By: Luis Fernando Song; 10/26/2011 9:16:33 AM Vicodin TABS Itching; Rash; Updated By: Dominique Anton; 11/26/2016 8:11:03 AMDenied Adhesive Tape Recorded By: Luis Fernando Song; 10/26/2011 9:16:33 AM Iodinated Contrast Media Recorded By: Sara March; 12/01/2015 1:49:30 PM Latex Recorded By: Luis Fernando Song; 10/26/2011 9:16:33 AM Current Meds Ferrous Sulfate 325 (65 Fe) MG Oral Tablet;Therapy: 10Jun2015 to Recorded Iron TABS;Therapy: (Recorded:81Rib5061) to Recorded Metoprolol Tartrate 25 MG Oral Tablet;Therapy: (Recorded:22Fnb0566) to Recorded Multi- Vitamin TABS;Therapy: (Recorded:26Nov2011) to Recorded Nystatin 273859 UNIT/GM External Cream;Therapy: 08Sep2012 to Recorded oxyCODONE-Acetaminophen 10-325 MG Oral Tablet; 1 tqab po q 6-8 hours prnbreakthrough pain MDD:3;Therapy: 63Smk9622 to (Evaluate:55Eic1044) Requested for: 12Jul2020; LastRx:12Jul2020 ByowhrtSX54/7/2020 Pantoprazole Sodium 40 MG Oral Tablet Delayed Release;Therapy: 24Sep2014 to Recorded tiZANidine HCl - 4 MG Oral Tablet; TK ONE T PO TID PRN FOR SPASMS MDD:2;Therapy: 12Jul2011 to (Evaluate:00Fut1809) Requested for: 04Feb2020; LastRx:04Feb2020 Ordered Vitamin D (Ergocalciferol) 1.25 MG (28906 UT) Oral Capsule; TK 1 C PO WEEKLY;Therapy: 24Jul2010 to Recorded Xarelto 20 MG Oral Tablet;Therapy: 18Jul2015 to Recorded Past Medical History History of Arthritis (V13.4) History of anemia (V12.3) (Z86.2) History of atrial fibrillation (V12.59) (Z86.79) History of blood coagulation disorder (V12.3) (Z86.2) History of depression (V11.8) (Z86.59) History of herpes zoster (V12.09) (Z86.19) History of hypertension (V12.59) (Z86.79) History of type 2 diabetes mellitus (V12.29) (Z86.39) History of On anticoagulant therapy (V58.61) (Z79.01) xarelto, 20 mg... Dr. Pozo Denied: History of (V22.2) History of Shoulder pain (719.41) (M25.519) Surgical History History of Appendectomy History of Cataract Surgery bilaterally march 2014 History of Gastric Surgery For Morbid Obesity Gastric Bypass Resolved Date: 30 Dec 2015 Revision done 12/30/15 History of Gastric Surgery For Morbid Obesity Gastric Bypass revision December 29, 2015 History of Hernia Repair History of Hys terectomy Denied: History of Implantable Cardioverter-Defibrillator History of Knee Replacement right.... 06/20/15 [facility] History of Nasal Septal Deviation Repair right wrist Denied: History of Pacemaker Placement History of Shoulder Surgery 2007,2008 right shoulder x2 History of Wrist Surgery right Family History Family history of Arthritis (V17.7) Family history of Diabetes Mellitus (V18.0) Family history of Heart Disease (V17.49) Family history of Hypertension (V17.49) Family history of Arthritis (V17.7) Family history of Hypertension (V17.49) Family history of Hypertension (V17.49) Family history of Brain Cancer (V16.8) Family history of Colon Cancer (V16.0) Family history of Arthritis (V17.7) Family history of Brain Cancer (V16.8) Family history of Colon Cancer (V16.0) Family history of Diabetes Mellitus (V18.0) Family history of Heart Disease (V17.49) Family history of Hypertension (V17.49) Social History Current non-drinker of alcohol (V49.89) (Z78.9) Currently On Disability Denied: History of Drug Use Marital History - Single Never smoker VitalsVital Signs Recorded: [id number] 09:55AM Height: 5 ft 4 inWeight: 276 lb BMI Calculated: 47.38BSA Calculated: 2.24Systolic: 148, SittingDiastolic: 85, SittingHeart Rate: 69Respiration: 18Temperature: 96.8 FHeight measured w/wo shoes: w/shoesPain Scale: 6 Physical ExamGeneral: The patient is a well nourished/well developed, female, heavy set (overweight), who is in no acute distress and appears stated age. Eyes: Lids are atraumatic, no lesions, sclerae are anicteric. Ears, Nose, Mouth, Throat: external ears and nose without trauma. Patient wearing a mask due to COVID-19. Respiratory: Normal chest expansion and respiratory effort. Gait and Station: Gait was normal. Gait and station are normal. Lungs are clear to auscultation bilaterally Cardiovascular: Extremities without peripheral edema, auscultation of heart reveals S1, S2 regular rate and rhythm, without murmur.Thoracic Spine: Inspection: No deformity, ecchymosis, erythema or swelling noted.Palpation/Tenderness: Tenderness on palpation of the RIGHT: paraspinal (at multiple levels) and trapezius . She has tenderness over the scapula on the right side. The thoracic spine is tender to palpation. She has tenderness throughout the musculature on the right side as noted.ROM: Extension: was painful. She is unable to raise her right upper extremity beyond 90 degrees and when she attempted to do so it put her into a substantial amount of pain which she attributes to muscle spasms on the right side. The upper extremity strength is normal other than 3/5 strength with abduction of the shoulder on the right past 90 degrees. Sensation is normal. Skin: Warm, dry, acyanotic. Psychological: Alert and oriented to person, place and time. Mood and affect are pleasant and appropriate. Judgement intact. Insight normal without delusions or hallucinations. Denies suicidal/homicidal ideation. Results/DataMRI of the thoracic spine performed on 04/11/2010 reveals mild g eneralized thoracic spondylosis and minimal posterior disc bulging at some levels as well as disc osteophyte complexes in some of the mid and lower thoracic intervertebral discs. There is a normal marrow signal throughout the thoracic spine. The thoracic spinal cord is normal in morphology and signal characteristics. Assessment 1. Mid back pain on right side (724.5) (M54.9) 2. Spasm of paraspinal muscle (724.8) (M62.830) 3. 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 Start: Cyclobenzaprine HCl - 10 MG Oral Tablet; TAKE 1 TABLET TWICE DAILY NEEDED 2. Changed: From oxyCODONE-Acetaminophen 10-325 MG Oral Tablet 1 tqab po q 6-8 hours prn breakthrough pain MDD:3 To oxyCODONE- Acetaminophen 7.5-325 MG Oral Tablet TAKE 1 TABLET EVERY 8 HOURS NEEDED FOR [id number]/01/2020 3. Follow-up in 1 month Follow Up Follow-up Status: Complete Done: [id number] Appointment for 15 or 30 minutes : Schedule 15 minute appointment Patient was counseled on all of the following: Medications: The patient will discontinue tizanidine. A prescription was provided for cyclobenzaprine 10 mg 2 times daily as needed for muscle spasms and pain. She will begin to wean the opioids. At the next refill the patient will reduce the oxycodone to 7.5/325 mg 3 times daily as needed for breakthrough pain. There was no refill sent yet at this time. She will continue to wean as tolerated thereafter. The following month her prescription should be further reduced to 5/325 mg 3 times daily as needed followed by a reduction to 5/325 mg 2 times daily for 3 to 4 weeks then daily for 3 to 4 weeks then off. TONGUE CARRIER was consulted by my designee and I have reviewed the information presented to me and find no aberrant compliance issues. Patient has been informed. GENERAL MEDICATIONS: I advised the patient today/previously regarding treatment with the above medication(s). The risks, benefits, common side effects and alternative treatments were discussed with the patient. The provider verbalized with the patient. The patient verbalized understanding and was told to call if there were any untoward effects. Nerve Blocks: ASIPP Risk Stratification of Patients presenting for Interventional Pain Procedures: Decreasing Morbidity of COVID-19 Points: 2Comments: CPAPPoints: 3Points: 0Points: 3Points: 0Points: 0Points: 0Points: 0Total Points: 8 According to the Covid-19 ASIPP guidelines and the medical history as relayed to me by the patient, the Covid-19 risk stratification is medium. Follow Up: The patient will follow up in 1 month. Discussion/SummaryFlor is a 65-year-old female with right-sided mid-back pain and right shoulder pain presenting for follow-up. We reviewed the results of her independent medical examination and the need to begin weaning her opioids. She will trial cyclobenzaprine in place of tizanidine to facilitate this process as rotations of antispasmodics are often effective. She will reduce her oxycodone to 7.5/325 mg 3 times daily as needed for 1 month followed by 5/325 mg 3 times daily as needed for breakthrough pain for 1 month followed by 2 times daily thereafter and then daily before discontinuation. She will follow up in 1 month to assess her progress. Work / School NotePATIENT: if you submit this to your employer as an out of work note please be aware this includes PHI (Protected Health Information). The incident described by the patient is a competent medical cause of this injury. The patient's complaints are consistent with the history of the injury/illness. The patient's history of the injury/illness is consistent with my objective findings. The percentage of temporary impairment is 67 %. The patient is not working at this time. Patient is on permanent disability. Patient is on partial disability. Moderate. ScribeNYSW Scribe Detail Form: Michelle Peña . [facility] Signatures Electronically signed by : Harsh Cobb MD; Aug 01 2020 8:31PM EST Name Value Range Interpretation Code Description Data Yolanda rce(s) Supporting Document(s) ID Date Data Source [id number] 07/29/2020 10:00:00 AM EST [facility] Name Value Range Interpretation Code Description Data Yolanda rce(s) Supporting Document(s) SARS coronavirus 2 RNA [facility] This lab was ordered by [facility] and reported by [facility]. ID Date Data Source [id number] 06/30/2020 12:00:00 PM EST [facility] Name Value Range Interpretation Code Description Data Yolanda rce(s) Supporting Document(s) SARS coronavirus 2 RNA [facility] This lab was ordered by [facility] and reported by [facility]. ID Date Data Source [id number] 06/10/2020 01:05:04 PM EDT [facility], PCName: Lacy hy JuanitaDOB: 1955Provider: Leisa HastingsS: 06/10/2020 Chief ComplaintRight shoulder pain and mid back pain Chief Complaint 2NYSW VAS PAIN Established: SHAYNE completing section: [employer] History of Present IllnessRecent test/procedures: Patient has had the following tests/procedures since their last visit: Nerve burning. Patient was asked and denies being seen by any Physicians since their last visit. The patient was last seen by a [facility] provider on 04/04/2020. At today's visit patient presents with their Self Implanted Devices The patient has the following implanted device(s): Loop recorder. The patient does not have a glucose monitoring device. Patient is not currently working. The patient is being seen for a workers compensation follow-up. The workers compensation date of injury is 05/30/07. Pain Quality: (Neuropathic) burning Pain Quality: (Nociceptive) aching, dull and stabbing Timing: constant Palliation: changing position and opioid analgesics Exacerbating: head turning left, head turning right, lifting and neck movement Pain Score: a current pain level of 6/10, a minimum pain level of 4/10 and a maximum pain level of 10/10. Condition type: The patient is being seen for a chronic condition. PAIN LOCATION: the pain is located in the mid-back and in the right shoulder. The etiology of this injur y/condition is related to an injury / accident. INJURY SETTING: at work. INJURY MECHANISM: The injury resulted from lifting and trauma. REVIEW OF PAST DIAGNOSTICS: have included: MRI. PAST TREATMENT has included: OPIOID ANALGESICS (effective). ASSOCIATED SYMPTOMS: include muscle pain/spasm and radiating. FUNCTIONAL LIMITATIONS: The patient's functional status is limited as follows: ability to participate in aerobic activity and participate in hobbies. MEDICATION SIDE EFFECTS experienced by patient are: no known medication side effects. Review of SystemsConstitutional: Normal. Eyes: Normal. ENT: normal. Cardiovascular: Normal. Respiratory: Normal. Gastrointestinal: Normal. Genitourinary: Normal. Musculoskeletal: neck pain and muscle pain. Integumentary: Normal. Neurological: a burning sensation. Psychiatric: Normal. Endocrine: Normal. Hematologic/Lymphatic: Normal. Patient maintains at today's visit there has been no change in his/her hematologic history. I reviewed the above with the patient and I feel the ROS to be negative/normal other than Musculoskeletal and neurological. Active Problems 1. Chronic pain (338.29) (G89.29) 2. 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 Mid back pain (724.5) (M54.9) 5. Spondylosis, thoracic (721.2) (M47.814) 6. Taking Blood Thinners Allergies Bactrim TABS Hives;; Recorded By: Luis Fernando Song; 10/26/2011 9:16:33 AM Clindamycin Hives;; Recorded By: Niki Danielle; 11/26/2011 9:57:33 AM Codeine Derivatives Hives;; Recorded By: Luis Fernando Song; 10/26/2011 9:16:32 AM Doxycycline Hyclate CAPS Hives;; Recorded By: Luis Fernando Song; 10/26/2011 9:16:33 AM Novocain SOLN Hives;; Recorded By: Luis Fernando Song; 10/26/2011 9:16:33 AM Penicillins Hives;; Recorded By: Luis Fernando Song; 10/26/2011 9:16:32 AM Talwin NX TABS Hives;; Recorded By: Luis Fernando Song; 10/26/2011 9:16:32 AM Tetracyclines Hives;; Recorded By: Luis Fernando Song; 10/26/2011 9:16:33 AM Vicodin TABS Itching; Rash; Updated By: Dominique Anton; 11/26/2016 8:11:03 AMDenied Adhesive Tape Recorded By: Luis Fernando Song; 10/26/2011 9:16:33 AM Iodinated Contrast Media Recorded By: Sara March; 12/01/2015 1:49:30 PM Latex Recorded By: Luis Fernando Song; 10/26/2011 9:16:33 AM Current Meds Ferrous Sulfate 325 (65 Fe) MG Oral Tablet;Therapy: 10Jun2015 to Recorded Iron TABS;Therapy: (Recorded:49Egh9530) to Recorded Metoprolol Tartrate 25 MG Oral Tablet;Therapy: (Recorded:75Euv6972) to Recorded Multi- Vitamin TABS;Therapy: (Recorded:26Nov2011) to Recorded Nystatin [id number] UNIT/GM External Cream;Therapy: 08Sep2012 to Recorded oxyCODONE-Acetaminophen 10-325 MG Oral Tablet; 1 tqab po q 6-8 hours prnbreakthrough pain MDD:3;Therapy: 43Nmg1208 to (Evaluate:10Jun2020) Requested for: 12Etq5615; LastRx:35Irn9615 OrderedLD 06/10/2020 Pantoprazole Sodium 40 MG Oral Tablet Delayed Release;Therapy: 24Sep2014 to Recorded tiZANidine HCl - 4 MG Oral Tablet; TK ONE T PO TID PRN FOR SPASMS MDD:2;Therapy: 12Jul2011 to (Evaluate:55Dwe0530) Requested for: 1 7Qig2505; LastRx:04Feb2020 Ordered Vitamin D (Ergocalciferol) 1.25 MG (43162 UT) Oral Capsule; TK 1 C PO WEEKLY;Therapy: 24Jul2010 to Recorded Xarelto 20 MG Oral Tablet;Therapy: 18Jul2015 to Recorded Past Medical History History of Arthritis (V13.4) History of anemia (V12.3) (Z86.2) History of atrial fibrillation (V12.59) (Z86.79) History of blood coagulation disorder (V12.3) (Z86.2) History of depression (V11.8) (Z86.59) History of herpes zoster (V12.09) (Z86.19) History of hypertension (V12.59) (Z86.79) History of type 2 diabetes mellitus (V12.29) (Z86.39) History of On anticoagulant therapy (V58.61) (Z79.01) xarelto, 20 mg... Dr. Pozo Denied: History of (V22.2) History of Shoulder pain (719.41) (M25.519) Surgical History History of Appendectomy History of Cataract Surgery bilaterally march 2014 History of Gastric Surgery For Morbid Obesity Gastric Bypass Resolved Date: 30 Dec 2015 Revision done 12/30/15 History of Gastric Surgery For Morbid Obesity Gastric Bypass revision December 29, 2015 History of Hernia Repair History of Hysterectomy Denied: History of Implantable Cardioverter-Defibrillator History of Knee Replacement right.... 06/20/15 [facility] History of Nasal Septal Deviation Repair right wrist Denied: History of Pacemaker Placement History of Shoulder Surgery 2007,2009 right shoulder x2 History of Wrist Surgery right Family History Family history of Arthritis (V17.7) Family history of Diabetes Mellitus (V18.0) Family history of Heart Disease (V17.49) Family history of Hypertension (V17.49) Family history of Arthritis (V17.7) Family history of Hypertension (V17.49) Family history of Hypertension (V17.49) Family history of Brain Cancer (V16.8) Family history of Colon Cancer (V16.0) Family history of Arthritis (V17.7) Family history of Brain Cancer (V16.8) Family history of Colon Cancer (V16.0) Family history of Diabetes Mellitus (V18.0) Family history of Heart Disease (V17.49) Family history of Hypertension (V17.49) Soci al History Current non-drinker of alcohol (V49.89) (Z78.9) Currently On Disability Denied: History of Drug Use Marital History - Single Never smoker VitalsVital Signs Recorded: 65Ruv1920 08:12AM Height: 5 ft 3 inWeight: 273 lb BMI Calculated: 48.36BSA Calculated: 2.21Systolic: 144, SittingDiastolic: 82, SittingHeart Rate: 83Respiration: 16Temperature: 98.6 FPain Scale: 6 Physical ExamGeneral: The patient is a well nourished/well developed, female, who is morbidly obese, who is in no acute distress and appears stated age. Eyes: Lids are atraumatic, no lesions, sclerae are anicteric. currently wearing eyeglasses. Ears, Nose, Mouth, Throat: external ears and nose without trauma. Patient wearing a mask due to COVID-19. Respiratory: Normal chest expansion and respiratory effort. Gait and Station: Gait was antalgic. Psychological: Alert and oriented to person, place and time. Mood and affect are pleasant and appropriate. Judgement intact. Insight normal without delusions or hallucinations. Denies suicidal/homicidal ideation. Assessment 1. Chronic pain (338.29) (G89.29) 2. Chronic right shoulder pain (719.41,338.29) (M25.511,G89.29) 3. Mid back pain (724.5) (M54.9) 4. Spondylosis, thoracic (7 21.2) (M47.814) Plan 1. Renew: oxyCODONE-Acetaminophen 10-325 MG Oral Tablet; 1 tqab po q 6-8 hours prn breakthrough pain MDD:3LD 06/10/2020 2. UDS-LAB WC / NF ([facility] Urine Drug Screen); [Do Not Release]; Specimen Source:Urine; Status:In Progress - Specimen/Data Collected; Done: 61Plg0017 3. Follow-up in 2 months Follow Up Follow-up Status: Hold For - Scheduling Requested for: [id number] Appointment for 15 or 30 minutes : Schedule 15 minute appointment Medication:. [facility] TONGUE CARRIER Information: TONGUE CARRIER was consulted by my designee and I have reviewed the information presented to me and find no aberrant compliance issues. Patient has been informed. Controlled Substance Prescribed: OXYCODONE . CONTROLLED SUBSTANCE INFORMATION: I advised the patient today/previously regarding treatment with the above controlled substance and/or narcotic. The patient was then informed of the risks, benefits, and alternatives of the narcotic. The risks discussed included but were not limited to physical and/or psychological dependence, tolerance of the medication, drowsiness, sleepiness, balance/coordination problems, confusion, allergic reaction or any other abnormal symptoms. The patient was advised and agreed to use the medication only as prescribed, and not to drive, or operate heavy equipment or machinery. The patient understood and consented to both undergo a narcotic/opiate regimen and agreed to sign and comply with all of the [facility] terms of a controlled substance treatment and agreement. Patient has received a copy of the Opioid instruction sheet. Patient has been counseled on the changes made to their controlled substance and agrees to continue compliance with the controlled substance agreement previously signed. There are no changes in current medications at this visit. Patient instructed to continue current regimen. UDS: This is an established patient and is on ongoing opioid therapy. A UDS is being obtained today, the patient has previously consented to UDS as part of the Controlled Substance and Treatment Agreement. The reason for today's UDS is: patient was selected at random and scored as low risk on the opioid risk assessment. Creatinine has been ordered as well for specimen validity, not for kidney function. Preliminary UDS results are not final and should not be used to determine patient care or plan of treatment. Initially a qualitative immunoassay screen will be done. Any positive findings or negative findings that are out of compliance will be further tested with a more comprehensive quantitative confirmation LCMS study. It is part of the normal prescribing protocol of controlled substances and is considered standard of care. Treatment includes: FOLLOW UP: The patient should have a follow up visit in 2 months. - STONE CLEANER: The patient was counseled on the following: treatment plan and future treatment options. Discussion/SummaryPatient presents today with right shoulder pain and mid back pain. Patient states current medication regimen controls her pain so that she is able to perform her activities of daily living such as personal hygiene house chores. Without these medications patient would not be able to perform these activities and would lead a more sedentary lifestyle which in turn would worsen her condition. Patient was continue with this and return to the office for follow-up in 2 months. Patient states her understanding and is in agreement with the treatment plan. Work / School NotePATIENT: if you submit this to your employer as an out of work note please be aware this includes PHI (Protected Health Information). The incident described by the patient is a competent medical cause of this injury. The patient's complaints are consistent with the history of the injury/illness. The patient's history of the injury/illness is consistent with my objective findings. The percentage of temporary impairment is 67 %. The patient is not working at this time. Patient is on permanent disability. Patient is on partial disability. Moderate. Preggerson DisclaimerNYSWC Guaranteach Disclaimer: This document was dictated and electronically signed using [employer] Speaking software. A reasonable attempt at proof reading has been made to minimize errors. Please call with any questions. Signatures Electronically signed by : Tomas Hastings NP; Jun 10 2020 8:27AM EST (Author) Electronically signed by : Harsh Cobb MD; Jun 10 2020 1:05PM EST Name Value Range Interpretation Code Description Data Yolanda rce(s) Supporting Document(s) ID Date Data Source [id number] 05/26/2020 10:00:00 AM EDT [facility] Name Value Range Interpretation Code Description Data Yolanda rce(s) Supporting Document(s) SARS coronavirus 2 RNA [facility] This lab was ordered by [facility] and reported by [facility]. ID Date Data Source [id number] 04/30/2020 09:00:00 AM EDT [facility] Name Value Range Interpretation Code Description Data Yolanda rce(s) Supporting Document(s) SARS coronavirus 2 RNA [facility] This lab was ordered by [facility] and reported by [facility]. Procedure Social History Code Duration Value Status Description Data Source(s ) Smoking 06/09/2021 12:00:00 AM EDT Former Smoker completed Former Smoker eCW1 ([facility]) Smoking 06/02/2021 12:00:00 AM EDT Former Smoker completed Former Smoker eCW1 ([facility]) Smoking 04/14/2021 12:00:00 AM EDT Non Smoker completed Non Smoke r MEDENT ([facility]) Alcohol intake 01/11/2021 12:00:00 AM EDT Ex-drinker (finding) comp leted Ex- drinker (finding) [facility] Smoking 01/04/2021 12:00:00 AM EDT Former Smoker completed Former Smoker eCW1 ([facility]) Smoking 01/04/2021 12:00:00 AM EDT Former Smoker completed Former Smoker eCW1 ([facility]) Smoking 01/04/2021 12:00:00 AM EDT Former Smoker completed Former Smoker eCW1 ([facility]) Smoking 01/04/2021 12:00:00 AM EDT Former Smoker completed Former Smoker eCW1 ([facility]) Smoking 01/04/2021 12:00:00 AM EDT Former Smoker completed Former Smoker eCW1 ([facility]) Smoking 01/04/2021 12:00:00 AM EDT Former Smoker completed Former Smoker eCW1 ([facility]) Smoking 01/04/2021 12:00:00 AM EDT Former Smoker completed Former Smoker eCW1 ([facility]) Smoking 01/04/2021 12:00:00 AM EDT Former Smoker completed Former Smoker eCW1 ([facility]) Smoking 01/04/2021 12:00:00 AM EDT Former Smoker completed Former Smoker eCW1 ([facility]) Smoking 01/04/2021 12:00:00 AM EDT Former Smoker completed Former Smoker eCW1 ([facility]) Smoking 01/04/2021 12:00:00 AM EDT Former Smoker completed Former Smoker eCW1 ([facility]) Smoking 12/15/2020 12:00:00 AM EDT Former Smoker completed Former Smoker eCW1 ([facility]) Smoking 10/07/2020 12:00:00 AM EST Former Smoker completed Former Smoker eCW1 ([facility]) Smoking 10/07/2020 12:00:00 AM EST Former Smoker completed Former Smoker eCW1 ([facility]) Smoking 10/07/2020 12:00:00 AM EST Former Smoker completed Former Smoker eCW1 ([facility]) Smoking 10/07/2020 12:00:00 AM EST Former Smoker completed Former Smoker eCW1 ([facility]) Smoking 10/07/2020 12:00:00 AM EST Former Smoker completed Former Smoker eCW1 ([facility]) Smoking 10/07/2020 12:00:00 AM EST Former Smoker completed Former Smoker eCW1 ([facility]) Smoking 08/16/2020 12:00:00 AM EST Former Smoker completed Former Smoker eCW1 ([facility]) Smoking 08/16/2020 12:00:00 AM EST Former Smoker completed Former Smoker eCW1 ([facility]) Smoking 08/16/2020 12:00:00 AM EST Former Smoker completed Former Smoker eCW1 ([facility]) Smoking 08/16/2020 12:00:00 AM EST Former Smoker completed Former Smoker eCW1 ([facility]) Smoking 08/16/2020 12:00:00 AM EST Former Smoker completed Former Smoker eCW1 ([facility]) Smoking 08/16/2020 12:00:00 AM EST Former Smoker completed Former Smoker eCW1 ([facility]) Smoking 08/16/2020 12:00:00 AM EST Former Smoker completed Former Smoker eCW1 ([facility]) Smoking 08/16/2020 12:00:00 AM EST Former Smoker completed Former Smoker eCW1 ([facility]) Smoking 08/15/2020 12:00:00 AM EST Former Smoker completed Former Smoker eCW1 ([facility]) Smoking 08/03/2020 12:00:00 AM EST Former Smoker completed Former Smoker eCW1 ([facility]) Smoking 08/03/2020 12:00:00 AM EST Former Smoker completed Former Smoker eCW1 ([facility]) Smoking 07/19/2020 12:00:00 AM EST Former Smoker completed Former Smoker eCW1 ([facility]) Smoking 07/19/2020 12:00:00 AM EST Former Smoker completed Former Smoker eCW1 ([facility]) Smoking 07/19/2020 12:00:00 AM EST Former Smoker completed Former Smoker eCW1 ([facility]) Smoking 07/05/2020 12:00:00 AM EST Former Smoker completed Former Smoker eCW1 ([facility]) Smoking 07/05/2020 12:00:00 AM EST Former Smoker completed Former Smoker eCW1 ([facility]) Smoking 07/04/2020 12:00:00 AM EST Former Smoker completed Former Smoker eCW1 ([facility]) Smoking 06/14/2020 12:00:00 AM EDT Former Smoker completed Former Smoker eCW1 ([facility]) Smoking 06/14/2020 12:00:00 AM EDT Former Smoker completed Former Smoker eCW1 ([facility]) Smoking 06/14/2020 12:00:00 AM EDT Former Smoker completed Former Smoker eCW1 ([facility]) Vital Signs ID Date Data Source UNK Name Value Range Interpretation Code Description Data Source(s) Body weight 248 [lb_av] 248 [lb_av] eCW1 ([facility]) Body weight 112.49 kg 112.49 kg eCW1 ([facility]) Body height 63 [in_i] 63 [in_i] eCW1 ([facility]) Body mass index (BMI) [Ratio] 43.93 kg/m2 43.93 kg/m2 eCW1 ([facility]) Heart rate 89 /min 89 /min eCW1 ([facility]) Respiratory rate 20 /min 20 /min eCW1 ([facility]) Body temperature 96.0 [degF] 96.0 [degF] eCW1 ( [facility]) Systolic blood pressure 130 mm[Hg] 130 mm[Hg] e CW1 ([facility]) Diastolic blood pressure 80 mm[Hg] 80 mm[Hg] eCW1 ([facility]) Body weight 245.2 [lb_av] 245.2 [lb_av] eCW1 ([facility]) Body weight 111.22 kg 111.22 kg eCW1 ([facility]) Body height 63 [in_i] 63 [in_i] eCW1 ([facility]) Body mass index (BMI) [Ratio] 43.43 kg/m2 43.43 kg/m2 eCW1 ([facility]) Heart rate 74 /min 74 /min eCW1 ([facility]) Respiratory rate 18 /min 18 /min eCW1 ([facility]) Body temperature 97.0 [degF] 97.0 [degF] eCW1 ( [facility]) Systolic blood pressure 148 mm[Hg] 148 mm[Hg] e CW1 ([facility]) Diastolic blood pressure 61 mm[Hg] 61 mm[Hg] eCW1 ([facility]) Body temperature 98.0 [degF] 98.0 [degF] MEDENT ([facility], ) Oxygen saturation in Arterial blood by Pulse oximetry 97 % 97 % MEDENT ([facility], ) Body temperature 97.8 [degF] 97.8 [degF] MEDENT ([facility], ) Body height 63 [in_i] 63 [in_i] MEDENT ([facility], ) 5'3" Body weight 262.00 [lb_av] 262.00 [lb_av] MEDEN T ([facility]) Body mass index (BMI) [Ratio] 46.4 kg/m2 46.4 k g/m2 [facility] ([facility]) [place] body weight 115 [lb_av] 115 [lb_av] MEDEN T ([facility]) Body weight 118.843 kg 118.843 kg [facility] ([facility]) Body surface area Derived from formula 2.17 m2 2.17 m2 [facility] ([facility]) Body weight 118.843 kg 118.843 kg [facility] ([facility]) Systolic blood pressure 130 mm[Hg] 130 mm[Hg] [facility] ([facility]) Diastolic blood pressure 82 mm[Hg] 82 mm[Hg] [facility] ([facility]) Heart rate 86 /min 86 /min [facility] ([facility]) Oxygen saturation in Arterial blood by Pulse oximetry 97 % 97 % [facility] ([facility]) Body temperature 97.8 [degF] 97.8 [degF] [facility] ([facility]) Body height 63 [in_i] 63 [in_i] [facility] ([facility]) 5'3" Body weight 262.00 [lb_av] 262.00 [lb_av] MEDEN T ([facility]) Body mass index (BMI) [Ratio] 46.4 kg/m2 46.4 k g/m2 [facility] ([facility]) [place] body weight 115 [lb_av] 115 [lb_av] MEDEN T ([facility]) Body surface area Derived from formula 2.17 m2 2.17 m2 [facility] ([facility]) Systolic blood pressure 134 mm[Hg] 134 mm[Hg] [facility] Diastolic blood pressure 78 mm[Hg] 78 mm[Hg] [facility] Heart rate 69 /min 69 /min [facility] Body height 160 cm 160 cm [facility] Body weight 118.389 kg 118.389 kg [facility] Body mass index (BMI) [Ratio] 46.23 kg/m2 46.23 kg/m2 [facility] Oxygen saturation in Arterial blood by Pulse oximetry 97 % 97 % [facility] Body weight 262.8 [lb_av] 262.8 [lb_av] eCW1 ([facility]) Body height 63 [in_i] 63 [in_i] eCW1 ([facility]) Body mass index (BMI) [Ratio] 46.55 kg/m2 46.55 kg/m2 eCW1 ([facility]) Heart rate 78 /min 78 /min eCW1 ([facility]) Respiratory rate 18 /min 18 /min eCW1 ([facility]) Body temperature 98.3 [degF] 98.3 [degF] eCW1 ( [facility]) Systolic blood pressure 159 mm[Hg] 159 mm[Hg] e CW1 ([facility]) Diastolic blood pressure 71 mm[Hg] 71 mm[Hg] eCW1 ([facility]) Systolic blood pressure 132 mm[Hg] 132 mm[Hg] e CW1 ([facility]) Body weight 267.4 [lb_av] 267.4 [lb_av] eCW1 ([facility]) Body height 63 [in_i] 63 [in_i] eCW1 ([facility]) Body mass index (BMI) [Ratio] 47.36 kg/m2 47.36 kg/m2 eCW1 ([facility]) Heart rate 87 /min 87 /min eCW1 ([facility]) Respiratory rate 20 /min 20 /min eCW1 ([facility]) Body temperature 97.9 [degF] 97.9 [degF] eCW1 ( [facility]) Diastolic blood pressure 70 mm[Hg] 70 mm[Hg] eCW1 ([facility]) Body weight 276.6 [lb_av] 276.6 [lb_av] eCW1 ([facility]) Body height 63 [in_i] 63 [in_i] eCW1 ([facility]) Body mass index (BMI) [Ratio] 48.99 kg/m2 48.99 kg/m2 eCW1 ([facility]) Heart rate 83 /min 83 /min eCW1 ([facility]) Respiratory rate 18 /min 18 /min eCW1 ([facility]) Body temperature 97.3 [degF] 97.3 [degF] eCW1 ( [facility]) Systolic blood pressure 144 mm[Hg] 144 mm[Hg] e CW1 ([facility]) Diastolic blood pressure 80 mm[Hg] 80 mm[Hg] eCW1 ([facility]) Body surface area Derived from formula 2.21 m2 2.21 m2 [facility] ([facility]) Body height 63 [in_i] 63 [in_i] [facility] 5'3" Body weight 274.00 [lb_av] 274.00 [lb_av] MEDEN T ([facility]) Body mass index (BMI) [Ratio] 48.5 kg/m2 48.5 k g/m2 [facility] ([facility]) [place] body weight 115 [lb_av] 115 [lb_av] MEDEN T ([facility]) Body weight 124.286 kg 124.286 kg [facility] ([facility]) Systolic blood pressure 144 mm[Hg] 144 mm[Hg] M EDENT ([facility]) Diastolic blood pressure 80 mm[Hg] 80 mm[Hg] [facility] ([facility]) Body height 63 [in_i] 63 [[facility]_i[facility] 5[facility]3" Body weight 274.00 [lb_av] 274.00 [lb_av] MEDEN T ([facility]) Body mass index (BMI) [Ratio] 48.5 kg/m2 48.5 k g/m2 [facility] ([facility]) [place] body weight 115 [lb_av] 115 [lb_av] MEDEN T ([facility]) Body weight 124.286 kg 124.286 kg [facility] ([facility]) Body surface area Derived from formula 2.21 m2 2.21 m2 [facility] ([facility]) Body weight 274.2 [lb_av] 274.2 [lb_av] eCW1 ([facility]) Body height 63 [in_i] 63 [in_i] eCW1 ([facility]) Body mass index (BMI) [Ratio] 48.57 kg/m2 48.57 kg/m2 eCW1 ([facility]) Heart rate 84 /min 84 /min eCW1 ([facility]) Respiratory rate 20 /min 20 /min eCW1 ([facility]) Body temperature 98.2 [degF] 98.2 [degF] eCW1 ( [facility]) Systolic blood pressure 184 mm[Hg] 184 mm[Hg] e CW1 ([facility]) Diastolic blood pressure 77 mm[Hg] 77 mm[Hg] eCW1 ([facility]) Body weight 271.2 [lb_av] 271.2 [lb_av] eCW1 ([facility]) Body mass index (BMI) [Ratio] 48.04 kg/m2 48.04 kg/m2 eCW1 ([facility]) Heart rate 97 /min 97 /min eCW1 ([facility]) Respiratory rate 20 /min 20 /min eCW1 ([facility]) Body temperature 98.1 [degF] 98.1 [degF] eCW1 ( [facility]) Systolic blood pressure 130 mm[Hg] 130 mm[Hg] e CW1 ([facility]) Diastolic blood pressure 82 mm[Hg] 82 mm[Hg] eCW1 ([facility]) Body height 63 [in_i] 63 [in_i] eCW1 ([facility]) Body mass index (BMI) [Ratio] 49.17 kg/m2 49.17 kg/m2 eCW1 ([facility]) Body height 63 [in_i] 63 [in_i] eCW1 ([facility]) Respiratory rate 18 /min 18 /min eCW1 ([facility]) Heart rate 95 /min 95 /min eCW1 ([facility]) Systolic blood pressure 140 mm[Hg] 140 mm[Hg] e CW1 ([facility]) Diastolic blood pressure 60 mm[Hg] 60 mm[Hg] eCW1 ([facility]) Body weight 277.6 [lb_av] 277.6 [lb_av] eCW1 ([facility]) Body temperature 98.1 [degF] 98.1 [degF] eCW1 ( [facility]) Body weight 275.6 [lb_av] 275.6 [lb_av] eCW1 ([facility]) Body height 63 [in_i] 63 [in_i] eCW1 ([facility]) Body mass index (BMI) [Ratio] 48.82 kg/m2 48.82 kg/m2 eCW1 ([facility]) Heart rate 86 /min 86 /min eCW1 ([facility]) Respiratory rate 18 /min 18 /min eCW1 ([facility]) Body temperature 96.1 [degF] 96.1 [degF] eCW1 ( [facility]) Systolic blood pressure 187 mm[Hg] 187 mm[Hg] e CW1 ([facility]) Diastolic blood pressure 79 mm[Hg] 79 mm[Hg] eCW1 ([facility]) Body weight 277.2 [lb_av] 277.2 [lb_av] eCW1 ([facility]) Body height 63 [in_i] 63 [in_i] eCW1 ([facility]) Body mass index (BMI) [Ratio] 49.10 kg/m2 49.10 kg/m2 eCW1 ([facility]) Heart rate 67 /min 67 /min eCW1 ([facility]) Respiratory rate 18 /min 18 /min eCW1 ([facility]) Body temperature 96.6 [degF] 96.6 [degF] eCW1 ( [facility]) Systolic blood pressure 164 mm[Hg] 164 mm[Hg] e CW1 ([facility]) Diastolic blood pressure 70 mm[Hg] 70 mm[Hg] eCW1 ([facility]) Body weight 272.6 [lb_av] 272.6 [lb_av] eCW1 ([facility]) Body height 63 [in_i] 63 [in_i] eCW1 ([facility]) Body mass index (BMI) [Ratio] 48.28 kg/m2 48.28 kg/m2 eCW1 ([facility]) Heart rate 83 /min 83 /min eCW1 ([facility]) Respiratory rate 18 /min 18 /min eCW1 ([facility]) Body temperature 97.5 [degF] 97.5 [degF] eCW1 ( [facility]) Systolic blood pressure 163 mm[Hg] 163 mm[Hg] e CW1 ([facility]) Diastolic blood pressure 69 mm[Hg] 69 mm[Hg] eCW1 ([facility]) Body weight 272.6 [lb_av] 272.6 [lb_av] eCW1 ([facility]) Body height 63 [in_i] 63 [in_i] eCW1 ([facility]) Body mass index (BMI) [Ratio] 48.28 kg/m2 48.28 kg/m2 eCW1 ([facility]) Heart rate 76 /min 76 /min eCW1 ([facility]) Respiratory rate 18 /min 18 /min eCW1 ([facility]) Body temperature 96.5 [degF] 96.5 [degF] eCW1 ( [facility]) Systolic blood pressure 174 mm[Hg] 174 mm[Hg] e CW1 ([facility]) Diastolic blood pressure 77 mm[Hg] 77 mm[Hg] eCW1 ([facility]) Patient Treatment Plan of Care Planned Activity Planned Date Details Description Data Source (s) December - 02/08/2021 12:00:00 AM EDT e CW1 ([facility]) May Have - 02/08/2021 12:00:00 AM EDT e CW1 ([facility]) May Have - 02/08/2021 12:00:00 AM EDT e CW1 ([facility]) May Have - 02/08/2021 12:00:00 AM EDT e CW1 ([facility]) May Have - 02/08/2021 12:00:00 AM EDT e CW1 ([facility]) May Have - 02/08/2021 12:00:00 AM EDT e CW1 ([facility]) May Have - 02/08/2021 12:00:00 AM EDT e CW1 ([facility]) May Have - 02/08/2021 12:00:00 AM EDT e CW1 ([facility]) May Have - 02/08/2021 12:00:00 AM EDT e CW1 ([facility]) May Have - 02/08/2021 12:00:00 AM EDT e CW1 ([facility]) May Have - 02/08/2021 12:00:00 AM EDT e CW1 ([facility]) May Have - 02/08/2021 12:00:00 AM EDT e CW1 ([facility]) May Have - 02/08/2021 12:00:00 AM EDT e CW1 ([facility]) May Have - 02/08/2021 12:00:00 AM EDT e CW1 ([facility]) Nystatin - 11/17/2020 12:00:00 AM EDT e CW1 ([facility]) Nystatin - 11/17/2020 12:00:00 AM EDT e CW1 ([facility]) Nystatin - 11/17/2020 12:00:00 AM EDT e CW1 ([facility]) Nystatin - 11/17/2020 12:00:00 AM EDT e CW1 ([facility]) rivaroxaban 20 MG Oral Tablet 09/14/2020 12:00:00 AM EST [facility] 24 HR Metformin hydrochloride 500 MG Extended Release Oral Tablet 09/02/2020 12:00:00 AM EST eCW1 ([facility]) 24 HR Metformin hydrochloride 500 MG Extended Release Oral Tablet 09/02/2020 12:00:00 AM EST eCW1 ([facility]) 24 HR Metformin hydrochloride 500 MG Extended Release Oral Tablet 09/02/2020 12:00:00 AM EST eCW1 ([facility]) 24 HR Metformin hydrochloride 500 MG Extended Release Oral Tablet 09/02/2020 12:00:00 AM EST eCW1 ([facility]) 24 HR Metformin hydrochloride 500 MG Extended Release Oral Tablet 09/02/2020 12:00:00 AM EST eCW1 ([facility]) 24 HR Metformin hydrochloride 500 MG Extended Release Oral Tablet 09/02/2020 12:00:00 AM EST eCW1 ([facility]) 24 HR Metformin hydrochloride 500 MG Extended Release Oral Tablet 09/02/2020 12:00:00 AM EST eCW1 ([facility]) 24 HR Metformin hydrochloride 500 MG Extended Release Oral Tablet 09/02/2020 12:00:00 AM EST eCW1 ([facility]) 24 HR Metformin hydrochloride 500 MG Extended Release Oral Tablet 09/02/2020 12:00:00 AM EST eCW1 ([facility]) 24 HR Metformin hydrochloride 500 MG Extended Release Oral Tablet 09/02/2020 12:00:00 AM EST eCW1 ([facility]) Accu-Chek [place] 1 08/16/2020 12:00:00 AM EST eCW1 ([facility]) Blood Glucose Test 1 08/16/2020 12:00:00 AM EST eCW1 ([facility]) Accu-Chek Soft Touch Lancets 1 08/16/2020 12:00:00 AM EST eCW1 ([facility]) Accu-Chek [place] 1 08/16/2020 12:00:00 AM EST eCW1 ([facility]) Blood Glucose Test 1 08/16/2020 12:00:00 AM EST eCW1 ([facility]) Accu-Chek Soft Touch Lancets 1 08/16/2020 12:00:00 AM EST eCW1 ([facility]) Accu-Chek [place] 1 08/16/2020 12:00:00 AM EST eCW1 ([facility]) Blood Glucose Test 1 08/16/2020 12:00:00 AM EST eCW1 ([facility]) Accu-Chek Soft Touch Lancets 1 08/16/2020 12:00:00 AM EST eCW1 ([facility]) Blood Glucose Test 1 08/16/2020 12:00:00 AM EST eCW1 ([facility]) Accu-Chek [place] 1 08/16/2020 12:00:00 AM EST eCW1 ([facility]) Accu-Chek Soft Touch Lancets 1 08/16/2020 12:00:00 AM EST eCW1 ([facility]) Blood Glucose Test 1 08/16/2020 12:00:00 AM EST eCW1 ([facility]) Accu-Chek [place] 1 08/16/2020 12:00:00 AM EST eCW1 ([facility]) Accu-Chek Soft Touch Lancets 1 08/16/2020 12:00:00 AM EST eCW1 ([facility]) Blood Glucose Test 1 08/16/2020 12:00:00 AM EST eCW1 ([facility]) Accu-Chek [place] 1 08/16/2020 12:00:00 AM EST eCW1 ([facility]) Blood Glucose Test 1 08/16/2020 12:00:00 AM EST eCW1 ([facility]) Accu-Chek [place] 1 08/16/2020 12:00:00 AM EST eCW1 ([facility]) Blood Glucose Test 1 08/16/2020 12:00:00 AM EST eCW1 ([facility]) Accu-Chek Soft Touch Lancets 1 08/16/2020 12:00:00 AM EST eCW1 ([facility]) Accu-Chek [place] 1 08/16/2020 12:00:00 AM EST eCW1 ([facility]) Accu-Chek Soft Touch Lancets 1 08/16/2020 12:00:00 AM EST eCW1 ([facility]) FreeStyle Precision Adam Test - 08/15/2020 12:00:00 AM EST eCW1 ([facility]) Albuterol 0.83 MG/ML Inhalant Solution 08/20/2019 12:00:00 AM EST [facility] benzonatate 200 MG Oral Capsule 08/20/2019 12:00:00 AM EST [facility] Metoprolol Tartrate 25 MG Oral Tablet [facility] tizanidine 4 MG Oral Tablet [facility]
--- NOTE | 2021-06-27 12:59 | REP ---
INDICATION: closed head injury. COMPARISON: 02/21/2016 TECHNIQUE: Axial soft tissue and bone windows with coronal reconstructions provided FINDINGS: Lateral ventricles are midline, symmetric and size proportionate age and minimal cerebral atrophy. Basal ganglia show a stable cystic area on the left. This may be a small brain cyst or old lacunar infarct. Pinzon-white differentiation is well maintained. There is no vascular territory infarct, hemorrhage, mass or mass effect. Brainstem and cerebellum grossly intact no posterior fossa hemorrhage or mass. Basal cisterns were intact. Bone windows show show mastoids and visualized sinuses clear skull base and calvarium without acute finding. 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 IMPRESSION: Negative for any acute finding. 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 No new or acute finding. No acute infarct, hemorrhage, mass or mass effect. <Electronically signed by Mitchell Vail > 06/27/21 [id number]
--- NOTE | 2021-06-27 13:14 | REP ---
INDICATION: left lateral chest pain; s/p fall. TECHNIQUE: Four views of the left ribs with frontal view of the chest FINDINGS: Multiple views of the left ribs show no fracture or osseous lesion. The accompanying frontal view of the chest shows no cardiomegaly, infiltrates, effusions, or pneumothoraces. IMPRESSION: Negative left rib series. <Electronically signed by Jayson Shirley > 06/27/21 [id number]
--- OUTSIDE RECORDS SUMMARY | 2021-06-27 13:18 | CCD ---
Author Author [facility] Organization [facility] Address Unknown Phone Unavailable Care Team Providers Care Customer Sales Specialist Name Role Phone Maring, Giovanni PA Unavailable [...] Giovanni PA Unavailable Unavailable [place], L Sally CERTIFIED MASTER SAFE TECHNICIAN Unavailable Unavailable [place], L Sally CERTIFIED MASTER SAFE TECHNICIAN Unavailable Unavailable [place], L Sally CERTIFIED MASTER SAFE TECHNICIAN Unavailable Unavailable [place], L Sally CERTIFIED MASTER SAFE TECHNICIAN Unavailable Unavailable [place], L Sally CERTIFIED MASTER SAFE TECHNICIAN Unavailable Unavailable [place], L Sally CERTIFIED MASTER SAFE TECHNICIAN Unavailable Unavailable [place], L Sally CERTIFIED MASTER SAFE TECHNICIAN Unavailable Unavailable [place], L Sally CERTIFIED MASTER SAFE TECHNICIAN Unavailable Unavailable [place], L Sally CERTIFIED MASTER SAFE TECHNICIAN Unavailable Unavailable [place], L Sally CERTIFIED MASTER SAFE TECHNICIAN Unavailable Unavailable [place], L Sally CERTIFIED MASTER SAFE TECHNICIAN Unavailable Unavailable [place], L Sally CERTIFIED MASTER SAFE TECHNICIAN Unavailable Unavailable [place], L Sally CERTIFIED MASTER SAFE TECHNICIAN Unavailable Unavailable [place], L Sally CERTIFIED MASTER SAFE TECHNICIAN Unavailable Unavailable [place], L Sally CERTIFIED MASTER SAFE TECHNICIAN Unavailable Unavailable [place], L Sally CERTIFIED MASTER SAFE TECHNICIAN Unavailable Unavailable [place], L Sally CERTIFIED MASTER SAFE TECHNICIAN Unavailable Unavailable [place], L Sally CERTIFIED MASTER SAFE TECHNICIAN Unavailable Unavailable [place], L Sally CERTIFIED MASTER SAFE TECHNICIAN Unavailable Unavailable [place], L Sally CERTIFIED MASTER SAFE TECHNICIAN Unavailable Unavailable [place], L Sally CERTIFIED MASTER SAFE TECHNICIAN Unavailable Unavailable [place], L Sally CERTIFIED MASTER SAFE TECHNICIAN Unavailable Unavailable [place], L Sally CERTIFIED MASTER SAFE TECHNICIAN Unavailable Unavailable [place], L Sally CERTIFIED MASTER SAFE TECHNICIAN Unavailable Unavailable [place], L Sally CERTIFIED MASTER SAFE TECHNICIAN Unavailable Unavailable Nickolas Cobb MD Unavailable Unavailable [...] Unavailable Unavailable McConnNickolas MD Unavailable Unavailable Ismael, Dylno Peoples MD Unavailable Unavailable Ismael, Dylon Peoples [...] Ismael, Dylon Peoples MD Unavailable Unavailable Ismael, yDlon Peoples MD Unavailable Unavailable Ismael, Dylon Peoples [...] Unavailable Ismael, Dylon Peoples MD Unavailable Unavailable IsmaelyDlon MD Unavailable Unavailable Ismael, Dylon Peoples MD [...] Oh MD Unavailable Unavailable LAROCK, J JOCE CERTIFIED MASTER SAFE TECHNICIAN Unavailable Unavailable LAROCK, J JOCE CERTIFIED MASTER SAFE TECHNICIAN Unavailable Unavailable LAROCK, J JOCE CERTIFIED MASTER SAFE TECHNICIAN Unavailable Unavailable LAROCK, J JOCE CERTIFIED MASTER SAFE TECHNICIAN Unavailable Unavailable LAROCK, J JOCE CERTIFIED MASTER SAFE TECHNICIAN Unavailable Unavailable LAROCK, J JOCE CERTIFIED MASTER SAFE TECHNICIAN Unavailable Unavailable LAROCK, J JOCE CERTIFIED MASTER SAFE TECHNICIAN Unavailable Unavailable LAROCK, J JOCE CERTIFIED MASTER SAFE TECHNICIAN Unavailable Unavailable LAROCK, J JOCE CERTIFIED MASTER SAFE TECHNICIAN Unavailable Unavailable LAROCK, J JOCE CERTIFIED MASTER SAFE TECHNICIAN Unavailable Unavailable LAROCK, J JOCE CERTIFIED MASTER SAFE TECHNICIAN Unavailable Unavailable LAROCK, J JOCE CERTIFIED MASTER SAFE TECHNICIAN Unavailable Unavailable LAROCK, J JOCE CERTIFIED MASTER SAFE TECHNICIAN Unavailable Unavailable LAROCK, J JOCE CERTIFIED MASTER SAFE TECHNICIAN Unavailable Unavailable LAROCK, J JOCE CERTIFIED MASTER SAFE TECHNICIAN Unavailable Unavailable LAROCK, J JOCE CERTIFIED MASTER SAFE TECHNICIAN Unavailable Unavailable LAROCK, J JOCE CERTIFIED MASTER SAFE TECHNICIAN Unavailable Unavailable LAROCK, J JOCE CERTIFIED MASTER SAFE TECHNICIAN Unavailable Unavailable LAROCK, J JOCE CERTIFIED MASTER SAFE TECHNICIAN Unavailable Unavailable LAROCK, J JOCE CERTIFIED MASTER SAFE TECHNICIAN Unavailable Unavailable LAROCK, J JOCE CERTIFIED MASTER SAFE TECHNICIAN Unavailable Unavailable LAROCK, J JOCE CERTIFIED MASTER SAFE TECHNICIAN Unavailable Unavailable Leong, L Elma PA Unavailable [...] Elma PA Unavailable Unavailable Profetto, A Tomas SOCCER COMMENTATOR Unavailable Unavailable Profetto, A Tomas SOCCER COMMENTATOR Unavailable Unavailable Profetto, A Tomas SOCCER COMMENTATOR Unavailable Unavailable Profetto, A Tomas SOCCER COMMENTATOR Unavailable Unavailable Profetto, A Tomas SOCCER COMMENTATOR Unavailable Unavailable Profetto, A Tomas SOCCER COMMENTATOR Unavailable Unavailable Profetto, A Tomas SOCCER COMMENTATOR Unavailable Unavailable Profetto, A Tomas SOCCER COMMENTATOR Unavailable Unavailable Profetto, A Tomas SOCCER COMMENTATOR Unavailable Unavailable Profetto, A Tomas SOCCER COMMENTATOR Unavailable Unavailable Profetto, A Tomas SOCCER COMMENTATOR Unavailable Unavailable Profetto, A Tomas SOCCER COMMENTATOR Unavailable Unavailable Profetto, A Tomas SOCCER COMMENTATOR Unavailable Unavailable Profetto, A Tomas SOCCER COMMENTATOR Unavailable Unavailable Profetto, A Tomas SOCCER COMMENTATOR Unavailable Unavailable Profetto, A Tomas SOCCER COMMENTATOR Unavailable Unavailable Profetto, A Tomas SOCCER COMMENTATOR Unavailable Unavailable Profetto, A Tomas SOCCER COMMENTATOR Unavailable Unavailable Profetto, A Tomas SOCCER COMMENTATOR Unavailable Unavailable Profetto, A Tomas SOCCER COMMENTATOR Unavailable Unavailable Profetto, A Tomas SOCCER COMMENTATOR Unavailable Unavailable Profetto, A Tomas SOCCER COMMENTATOR Unavailable Unavailable Profetto, A Tomas SOCCER COMMENTATOR Unavailable Unavailable Profetto, A Tomas SOCCER COMMENTATOR Unavailable Unavailable Profetto, A Tomas SOCCER COMMENTATOR Unavailable Unavailable Profetto, A Tomas SOCCER COMMENTATOR Unavailable Unavailable Profetto, A Tomas SOCCER COMMENTATOR Unavailable Unavailable Profetto, A Tomas SOCCER COMMENTATOR Unavailable Unavailable Profetto, A Tomas SOCCER COMMENTATOR Unavailable Unavailable Profetto, A Tomas SOCCER COMMENTATOR Unavailable Unavailable Profetto, A Tomas SOCCER COMMENTATOR Unavailable Unavailable Re-disclosure Warning The records that [...] is protected by Article 27-F of the [facility] Public Health law. If you continue you may have access to information: Regarding HIV / AIDS; Provided by facilities licensed or operated by the [facility] Office of Mental Health; or Provided by the [facility] Office for People With Developmental Disabilities. If such information is present, then the following [facility] mandated warning applies: This information has been [...] law may result in a fine or halfway sentence or both. A general authorization for [...] FNPReferrer: Cinthya BETTS 06/23/2021 09:09:24 AM EDT [facility] Outpatient Attender: Adriano Blair/Monalisa/Fuentes/Re indl 06/16/2021 08:45:00 AM EDT [facility] ([facility]) [place] [address] [facility] [address] 06/08/2021 12:00:00 AM EDT eCW1 ([facility]) [place]patient [address] [facility] [place] [address] 06/02/2021 12:00:00 AM EDT eCW1 ([facility]) [place] [address] [facility] [address] 05/23/2021 12:00:00 AM EDT [facility]CW1 [facility] Out[facility] Attender: Adriano Blair/Monalisa/Fuentes/Re indl 05/05/2021 09:00:00 AM EDT [facility] ([facility]) Outpatient Attender: Adriano Blair/Monalisa/Fuentes/Re indl 04/14/2021 11:00:00 AM EDT [facility] ([facility]) Outpatient Attender: Giovanni BUTLER 04/10/20 05:20:35 PM EDT - 04/10/2021 05:53:09 PM EDT [facility] ([facility] ) Outpatient Attender: Tomas FIERROPReferrer: Cinthya BETTS 04/10/2021 09:45:07 AM EDT [facility] [place] [address] [facility] [address] 03/20/2021 12:00:00 AM EDT eCW1 ([facility]) [place] [address] [facility] [address] 03/13/2021 12:00:00 AM EDT eCW1 ([facility]) [place] [address] [facility] [address] 03/13/2021 12:00:00 AM EDT eCW1 ([facility]) [place] [address] [facility] [address] 03/06/2021 12:00:00 AM EDT eCW1 ([facility]) [place] [address] [facility] [address] 02/08/2021 12:00:00 AM EDT eCW1 ([facility]) [place] [address] [facility] [address] 02/07/2021 12:00:00 AM EDT eCW1 ([facility]) Recurring Patient Referrer: Cinthya BETTS 02/06/2021 09:28:09 AM EDT [facility] Outpatient Attender: Tomas Hastings FNPReferrer: Harsh Guevara MD 02/06/2021 09:26:58 AM EDT [facility] Outpatient Attender: JOCE AN NP 01/24 05:38:42 PM EDT - 02/05/2021 06:13:13 PM EDT [facility] ([facility] ) [place]patient [address] [facility] [address] 01/18/2021 12:00:00 AM EDT eCW1 ([facility]) Outpatient Attender: Sally Blair/Monalisa/Fuentes/Reindl 01/17/2021 08:30:00 AM EDT [facility] ([facility]) [place] [address] [facility] [address] 01/12/2021 12:00:00 AM EDT eCW1 ([facility]) Outpatient Attender: Elma HARRIS.ARLEN-STEVEN.ARLEN 07:45:19 AM EDT - 01/11/2021 08:37:08 AM EDT [facility] [place] [address] [facility] [address] 01/04/2021 12:00:00 AM EDT eCW1 ([facility]) [place] [address] [facility] [address] 12/15/2020 12:00:00 AM EDT eCW1 ([facility]) [place] [address] [facility] [address] 12/08/2020 12:00:00 AM EDT eCW1 ([facility]) Unknown [address] [facility] [address] 12/05/2020 12:00:00 AM EDT eCW1 ([facility]) Outpatient Attender: Tomas Hastings FNPReferrer: Harsh Guevara MD 11/18/2020 01:09:00 PM EDT [facility] [place] [address] [facility] [address] 11/17/2020 12:00:00 AM EDT eCW1 ([facility]) [place]patient [address] [facility] [address] 11/17/2020 12:00:00 AM EDT eCW1 ([facility]) Unknown [address] [facility] [address] 10/20/2020 12:00:00 AM EST eCW1 ([facility]) [place] [address] [facility] [address] 10/07/2020 12:00:00 AM EST eCW1 ([facility]) Outpatient Attender: Tomas Hastings FNPReferrer: Harsh Guevara MD 09/14/2020 10:34:41 AM EST [facility] Unknown [address] [facility] [address] 09/14/2020 12:00:00 AM EST eCW1 ([facility]) [place] [address] [facility] [address] 09/05/2020 12:00:00 AM EST eCW1 ([facility]) Unknown [address] [facility] [place] [address] 09/05/2020 12:00:00 AM EST eCW1 ([facility]) Unknown [address] [facility] [place] [address] 09/02/2020 12:00:00 AM EST eCW1 ([facility]) Unknown [address] [facility] [place] [address] 08/22/2020 12:00:00 AM EST eCW1 ([facility]) Outpatient [address] [facility] [place] [address] 08/16/2020 12:00:00 AM EST eCW1 ([facility]) Unknown [address] [facility] [place] [address] 08/16/2020 12:00:00 AM EST eCW1 ([facility]) Outpatient [address] [facility] [place] [address] 08/15/2020 12:00:00 AM EST eCW1 ([facility]) Unknown [address] [facility] [place] [address] 08/12/2020 12:00:00 AM EST eCW1 ([facility]) (PN RF) Pain Radiofrequency [address] [place] [address] 08/03/2020 12:00:00 AM EST eCW1 ([facility]) Unknown [address] [facility] [place] [address] 08/02/2020 12:00:00 AM EST eCW1 ([facility]) Outpatient Attender: Harsh IVANeferrer: Harsh Guevara MD 08/01/2020 08:31:16 PM EST [facility] Outpatient [address] [facility] [place] [address] 07/20/2020 12:00:00 AM EST eCW1 ([facility]) Unknown [address] [facility] [address] 07/19/2020 12:00:00 AM EST eCW1 ([facility]) Outpatient [address] [facility] [address] 07/19/2020 12:00:00 AM EST eCW1 ([facility]) Unknown [address] [facility] [address] 07/18/2020 12:00:00 AM EST eCW1 ([facility]) Outpatient Attender: Elma HARRIS.ARLEN-SJP.ARLEN 12:00:00 AM EST - 07/13/2020 01:46:16 PM EST [facility] (PN Proc 45) Pain Procedure 45 [address] [place] [address] 07/05/2020 12:00:00 AM EST eCW1 ([facility]) Unknown [address] [facility] [address] 07/04/2020 12:00:00 AM EST eCW1 ([facility]) Outpatient [address] [facility] [address] 06/20/2020 12:00:00 AM EDT eCW1 ([facility]) Outpatient [address] [facility] [address] 06/14/2020 12:00:00 AM EDT eCW1 ([facility]) Outpatient Attender: Tomas Hastings FNPReferrer: Harsh Guevara MD 06/10/2020 01:05:04 PM EDT [facility] (PN RF) Pain Radiofrequency [address] [place] [address] 05/31/2020 12:00:00 AM EDT eCW1 ([facility]) Immunizations Vaccine Date Status Description Data Source(s) COVID-19 VACCINE Moderna 06/23/2021 12:00:00 AM EDT completed [employer] Vaccine Series Complete: YESThis Data wa s Submitted to [facility] Via [employer]. influenza, recombinant, quadrIvalent,injectable, prese rvative free 06/08/2021 06:36:00 PM EDT completed eCW1 ([facility]) 03/20/2021 08:42:00 AM EDT completed e CW1 ([facility]) 03/20/2021 08:42:00 AM EDT completed e CW1 ([facility]) 03/20/2021 08:42:00 AM EDT completed e CW1 ([facility]) 03/20/2021 08:42:00 AM EDT completed e CW1 ([facility]) Moderna #2 dose COVID-19 (given elsewhere) SARSCOV2 VA C 100MCG/0.5ML IM 11/25/2020 08:09:00 AM EDT completed eCW1 ([facility]) Moderna #2 dose COVID-19(given elsewhere) SARSCOV2 VAC 100MCG/0.5ML IM 11/25/2020 08:09:00 AM EDT completed eCW1 ([facility]) Moderna #2 dose COVID-19(given elsewhere) SARSCOV2 VAC 100MCG/0.5ML IM 11/25/2020 08:09:00 AM EDT completed eCW1 ([facility]) Moderna #2 dose COVID-19(given elsewhere) SARSCOV2 VAC 100MCG/0.5ML IM 11/25/2020 08:09:00 AM EDT completed eCW1 ([facility]) Moderna #2 dose COVID-19(given elsewhere) SARSCOV2 VAC 100MCG/0.5ML IM 11/25/2020 08:09:00 AM EDT completed eCW1 ([facility]) Moderna #2 dose COVID-19(given elsewhere) SARSCOV2 VAC 100MCG/0.5ML IM 11/25/2020 08:09:00 AM EDT completed eCW1 ([facility]) Moderna #2 dose COVID-19 (given elsewhere) SARSCOV2 VA C 100MCG/0.5ML IM 11/25/2020 08:09:00 AM EDT completed eCW1 ([facility]) Moderna #2 dose COVID-19(given elsewhere) SARSCOV2 VAC 100MCG/0.5ML IM 11/25/2020 08:09:00 AM EDT completed eCW1 ([facility]) Moderna #2 dose COVID-19(given elsewhere) SARSCOV2 VAC 100MCG/0.5ML IM 11/25/2020 08:09:00 AM EDT completed eCW1 ([facility]) Moderna #2 dose COVID-19(given elsewhere) SARSCOV2 VAC 100MCG/0.5ML IM 11/25/2020 08:09:00 AM EDT completed eCW1 ([facility]) Moderna #2 dose COVID-19(given elsewhere) SARSCOV2 VAC 100MCG/0.5ML IM 11/25/2020 08:09:00 AM EDT completed eCW1 ([facility]) COVID-19 VACCINE Moderna 11/25/2020 12:00:00 AM EDT completed [employer] Vaccine Series Complete: YESThis Data wa s Submitted to [facility] Via [employer]. 11/17/2020 08:11:00 AM EDT completed e CW1 ([facility]) 11/17/2020 08:11:00 AM EDT completed e CW1 ([facility]) 11/17/2020 08:11:00 AM EDT completed e CW1 ([facility]) 11/17/2020 08:11:00 AM EDT completed e CW1 ([facility]) 11/17/2020 08:11:00 AM EDT completed e CW1 ([facility]) 11/17/2020 08:11:00 AM EDT completed e CW1 ([facility]) 11/17/2020 08:11:00 AM EDT completed e CW1 ([facility]) 11/17/2020 08:11:00 AM EDT completed e CW1 ([facility]) 11/17/2020 08:11:00 AM EDT completed e CW1 ([facility]) 11/17/2020 08:11:00 AM EDT completed e CW1 ([facility]) 11/17/2020 08:11:00 AM EDT completed e CW1 ([facility]) 11/17/2020 08:11:00 AM EDT completed e CW1 ([facility]) 11/17/2020 08:11:00 AM EDT completed e CW1 ([facility]) 11/17/2020 08:11:00 AM EDT completed e CW1 ([facility]) 11/17/2020 08:11:00 AM EDT completed e CW1 ([facility]) 11/17/2020 08:11:00 AM EDT completed e CW1 ([facility]) 11/17/2020 08:11:00 AM EDT completed e CW1 ([facility]) 11/17/2020 08:11:00 AM EDT completed e CW1 ([facility]) Moderna #1 dose COVID-19 (given elsewhere) SARSCOV2 VA C 100MCG/0.5ML IM 10/28/2020 08:08:00 AM EST completed eCW1 ([facility]) Moderna #1 dose COVID-19(given elsewhere) SARSCOV2 VAC 100MCG/0.5ML IM 10/28/2020 08:08:00 AM EST completed eCW1 ([facility]) Moderna #1 dose COVID-19(given elsewhere) SARSCOV2 VAC 100MCG/0.5ML IM 10/28/2020 08:08:00 AM EST completed eCW1 ([facility]) Moderna #1 dose COVID-19(given elsewhere) SARSCOV2 VAC 100MCG/0.5ML IM 10/28/2020 08:08:00 AM EST completed eCW1 ([facility]) Moderna #1 dose COVID-19(given elsewhere) SARSCOV2 VAC 100MCG/0.5ML IM 10/28/2020 08:08:00 AM EST completed eCW1 ([facility]) Moderna #1 dose COVID-19(given elsewhere) SARSCOV2 VAC 100MCG/0.5ML IM 10/28/2020 08:08:00 AM EST completed eCW1 ([facility]) Moderna #1 dose COVID-19 (given elsewhere) SARSCOV2 VA C 100MCG/0.5ML IM 10/28/2020 08:08:00 AM EST completed eCW1 ([facility]) Moderna #1 dose COVID-19(given elsewhere) SARSCOV2 VAC 100MCG/0.5ML IM 10/28/2020 08:08:00 AM EST completed eCW1 ([facility]) Moderna #1 dose COVID-19(given elsewhere) SARSCOV2 VAC 100MCG/0.5ML IM 10/28/2020 08:08:00 AM EST completed eCW1 ([facility]) Moderna #1 dose COVID-19(given elsewhere) SARSCOV2 VAC 100MCG/0.5ML IM 10/28/2020 08:08:00 AM EST completed eCW1 ([facility]) Moderna #1 dose COVID-19(given elsewhere) SARSCOV2 VAC 100MCG/0.5ML IM 10/28/2020 08:08:00 AM EST completed eCW1 ([facility]) COVID-19 VACCINE Moderna 10/28/2020 12:00:00 AM EST completed [employer] Vaccine Series Complete: NOThis Data was Submitted to [facility] Via [employer]. 08/15/2020 01:03:00 PM EST completed e CW1 ([facility]) 08/15/2020 01:03:00 PM EST completed e CW1 ([facility]) 08/15/2020 01:03:00 PM EST completed e CW1 ([facility]) 08/15/2020 01:03:00 PM EST completed e CW1 ([facility]) 08/15/2020 01:03:00 PM EST completed e CW1 ([facility]) 08/15/2020 01:03:00 PM EST completed e CW1 ([facility]) 08/15/2020 01:03:00 PM EST completed e CW1 ([facility]) 08/15/2020 01:03:00 PM EST completed e CW1 ([facility]) 08/15/2020 01:03:00 PM EST completed e CW1 ([facility]) 08/15/2020 01:03:00 PM EST completed e CW1 ([facility]) 08/15/2020 01:03:00 PM EST completed e CW1 ([facility]) 08/15/2020 01:03:00 PM EST completed e CW1 ([facility]) 08/15/2020 01:03:00 PM EST completed e CW1 ([facility]) 08/15/2020 01:03:00 PM EST completed e CW1 ([facility]) 08/15/2020 01:03:00 PM EST completed e CW1 ([facility]) 08/15/2020 01:03:00 PM EST completed e CW1 ([facility]) 08/15/2020 01:03:00 PM EST completed e CW1 ([facility]) 08/15/2020 01:03:00 PM EST completed e CW1 ([facility]) 08/15/2020 01:03:00 PM EST completed e CW1 ([facility]) 08/15/2020 01:03:00 PM EST completed e CW1 ([facility]) 08/15/2020 01:03:00 PM EST completed e CW1 ([facility]) 08/15/2020 01:03:00 PM EST completed e CW1 ([facility]) 08/15/2020 01:03:00 PM EST completed e CW1 ([facility]) 08/15/2020 01:03:00 PM EST completed e CW1 ([facility]) 08/15/2020 01:03:00 PM EST completed e CW1 ([facility]) 08/15/2020 01:03:00 PM EST completed e CW1 ([facility]) 08/15/2020 01:03:00 PM EST completed e CW1 ([facility]) 08/15/2020 01:03:00 PM EST completed e CW1 ([facility]) 08/15/2020 01:03:00 PM EST completed e CW1 ([facility]) influenza, recombinant, quadrIvalent,injectable, prese rvative free 07/20/2020 04:39:00 PM EST completed eCW1 ([facility]) influenza, recombinant, quadrIvalent,injectable, prese rvative free 07/20/2020 04:39:00 PM EST completed eCW1 ([facility]) influenza, recombinant, quadrIvalent,injectable, prese rvative free 07/20/2020 04:39:00 PM EST completed eCW1 ([facility]) influenza, recombinant, quadrIvalent,injectable, prese rvative free 07/20/2020 04:39:00 PM EST completed eCW1 ([facility]) influenza, recombinant, quadrIvalent,injectable, prese rvative free 07/20/2020 04:39:00 PM EST completed eCW1 ([facility]) influenza, recombinant, quadrIvalent,injectable, prese rvative free 07/20/2020 04:39:00 PM EST completed eCW1 ([facility]) influenza, recombinant, quadrIvalent,injectable, prese rvative free 07/20/2020 04:39:00 PM EST completed eCW1 ([facility]) influenza, recombinant, quadrIvalent,injectable, prese rvative free 07/20/2020 04:39:00 PM EST completed eCW1 ([facility]) influenza, recombinant, quadrIvalent,injectable, prese rvative free 07/20/2020 04:39:00 PM EST completed eCW1 ([facility]) influenza, recombinant, quadrIvalent,injectable, prese rvative free 07/20/2020 04:39:00 PM EST completed eCW1 ([facility]) influenza, recombinant, quadrIvalent,injectable, prese rvative free 07/20/2020 04:39:00 PM EST completed eCW1 ([facility]) influenza, recombinant, quadrIvalent,injectable, prese rvative free 07/20/2020 04:39:00 PM EST completed eCW1 ([facility]) influenza, recombinant, quadrIvalent,injectable, prese rvative free 07/20/2020 04:39:00 PM EST completed eCW1 ([facility]) influenza, recombinant, quadrIvalent,injectable, prese rvative free 07/20/2020 04:39:00 PM EST completed eCW1 ([facility]) influenza, recombinant, quadrIvalent,injectable, prese rvative free 07/20/2020 04:39:00 PM EST completed eCW1 ([facility]) influenza, recombinant, quadrIvalent,injectable, prese rvative free 07/20/2020 04:39:00 PM EST completed eCW1 ([facility]) influenza, recombinant, quadrIvalent,injectable, prese rvative free 07/20/2020 04:39:00 PM EST completed eCW1 ([facility]) influenza, recombinant, quadrIvalent,injectable, prese rvative free 07/20/2020 04:39:00 PM EST completed eCW1 ([facility]) influenza, recombinant, quadrIvalent,injectable, prese rvative free 07/20/2020 04:39:00 PM EST completed eCW1 ([facility]) influenza, recombinant, quadrIvalent,injectable, prese rvative free 07/20/2020 04:39:00 PM EST completed eCW1 ([facility]) influenza, recombinant, quadrIvalent,injectable, prese rvative free 07/20/2020 04:39:00 PM EST completed eCW1 ([facility]) influenza, recombinant, quadrIvalent,injectable, prese rvative free 07/20/2020 04:39:00 PM EST completed eCW1 ([facility]) influenza, recombinant, quadrIvalent,injectable, prese rvative free 07/20/2020 04:39:00 PM EST completed eCW1 ([facility]) influenza, recombinant, quadrIvalent,injectable, prese rvative free 07/20/2020 04:39:00 PM EST completed eCW1 ([facility]) influenza, recombinant, quadrIvalent,injectable, prese rvative free 07/20/2020 04:39:00 PM EST completed eCW1 ([facility]) influenza, recombinant, quadrIvalent,injectable, prese rvative free 07/20/2020 04:39:00 PM EST completed eCW1 ([facility]) influenza, recombinant, quadrIvalent,injectable, prese rvative free 07/20/2020 04:39:00 PM EST completed eCW1 ([facility]) influenza, recombinant, quadrIvalent,injectable, prese rvative free 07/20/2020 04:39:00 PM EST completed eCW1 ([facility]) influenza, recombinant, quadrIvalent,injectable, prese rvative free 07/20/2020 04:39:00 PM EST completed eCW1 ([facility] [facility]) influenza, recombinant, quadrIvalent,injectable, prese rvative free 07/20/2020 04:39:00 PM EST completed eCW1 (formerly [facility]) influenza, recombinant, quadrIvalent,injectable, prese rvative free 07/20/2020 04:39:00 PM EST completed eCW1 (formerly [facility]) influenza, recombinant, quadrIvalent,injectable, prese rvative free 07/20/2020 04:39:00 PM EST completed eCW1 (formerly [facility]) influenza, recombinant, quadrIvalent,injectable, prese rvative free 07/20/2020 04:39:00 PM EST completed eCW1 (formerly [facility]) influenza, recombinant, quadrIvalent,injectable, prese rvative free 07/20/2020 04:39:00 PM EST completed eCW1 (formerly [facility]) 06/20/2020 05:27:00 PM EDT completed e CW1 ([facility]) 06/20/2020 05:27:00 PM EDT completed e CW1 ([facility]) 06/20/2020 05:27:00 PM EDT completed e CW1 ([facility]) 06/20/2020 05:27:00 PM EDT completed e CW1 ([facility]) 06/20/2020 05:27:00 PM EDT completed e CW1 ([facility]) 06/20/2020 05:27:00 PM EDT completed e CW1 ([facility]) 06/20/2020 05:27:00 PM EDT completed e CW1 ([facility]) 06/20/2020 05:27:00 PM EDT completed e CW1 ([facility]) 06/20/2020 05:27:00 PM EDT completed e CW1 ([facility]) 06/20/2020 05:27:00 PM EDT completed e CW1 ([facility]) 06/20/2020 05:27:00 PM EDT completed e CW1 ([facility]) 06/20/2020 05:27:00 PM EDT completed e CW1 ([facility]) 06/20/2020 05:27:00 PM EDT completed e CW1 ([facility]) 06/20/2020 05:27:00 PM EDT completed e CW1 ([facility]) 06/20/2020 05:27:00 PM EDT completed e CW1 ([facility]) 06/20/2020 05:27:00 PM EDT completed e CW1 ([facility]) 06/20/2020 05:27:00 PM EDT completed e CW1 ([facility]) 06/20/2020 05:27:00 PM EDT completed e CW1 ([facility]) 06/20/2020 05:27:00 PM EDT completed e CW1 ([facility]) 06/20/2020 05:27:00 PM EDT completed e CW1 ([facility]) 06/20/2020 05:27:00 PM EDT completed e CW1 ([facility]) 06/20/2020 05:27:00 PM EDT completed e CW1 ([facility]) 06/20/2020 05:27:00 PM EDT completed e CW1 ([facility]) 06/20/2020 05:27:00 PM EDT completed e CW1 ([facility]) 06/20/2020 05:27:00 PM EDT completed e CW1 ([facility]) 06/20/2020 05:27:00 PM EDT completed e CW1 ([facility]) 06/20/2020 05:27:00 PM EDT completed e CW1 ([facility]) 06/20/2020 05:27:00 PM EDT completed e CW1 ([facility]) 06/20/2020 05:27:00 PM EDT completed e CW1 ([facility]) 06/20/2020 05:27:00 PM EDT completed e CW1 ([facility]) 06/20/2020 05:27:00 PM EDT completed e CW1 ([facility]) 06/20/2020 05:27:00 PM EDT completed e CW1 ([facility]) 06/20/2020 05:27:00 PM EDT completed e CW1 ([facility]) 06/20/2020 05:27:00 PM EDT completed e CW1 ([facility]) 06/20/2020 05:27:00 PM EDT completed e CW1 ([facility]) 06/20/2020 05:27:00 PM EDT completed e CW1 ([facility]) 06/20/2020 05:27:00 PM EDT completed e CW1 ([facility]) 06/20/2020 05:27:00 PM EDT completed e CW1 ([facility]) 06/20/2020 05:27:00 PM EDT completed e CW1 ([facility]) Medications Medication Brand Name Start Date Product Form Dose Route Admi nistrative Instructions Pharmacy Instructions Status Indications Reaction Description Data Source(s) May Have - UNK 02/08/2021 12:00:00 AM EDT active May Have - eCW1 ([facility]) May Have - UNK 02/08/2021 12:00:00 AM EDT active May Have - eCW1 ([facility]) May Have - UNK 02/08/2021 12:00:00 AM EDT active May Have - eCW1 ([facility]) May Have - UNK 02/08/2021 12:00:00 AM EDT active May Have - eCW1 ([facility]) May Have - UNK 02/08/2021 12:00:00 AM EDT active May Have - eCW1 ([facility]) May Have - UNK 02/08/2021 12:00:00 AM EDT active May Have - eCW1 ([facility]) May Have - UNK 02/08/2021 12:00:00 AM EDT active May Have - eCW1 ([facility]) May Have - UNK 02/08/2021 12:00:00 AM EDT active May Have - eCW1 ([facility]) May Have - UNK 02/08/2021 12:00:00 AM EDT active May Have - eCW1 ([facility]) May Have - UNK 02/08/2021 12:00:00 AM EDT active May Have - eCW1 ([facility]) May Have - UNK 02/08/2021 12:00:00 AM EDT active May Have - eCW1 ([facility]) May Have - UNK 02/08/2021 12:00:00 AM EDT active May Have - eCW1 ([facility]) May Have - UNK 02/08/2021 12:00:00 AM EDT active May Have - eCW1 ([facility]) May Have - UNK 02/08/2021 12:00:00 AM EDT active May Have - eCW1 ([facility]) May Have - UNK 02/08/2021 12:00:00 AM EDT active May Have - eCW1 ([facility]) May Have - UNK 02/08/2021 12:00:00 AM EDT active May Have - eCW1 ([facility]) Covid-19 vaccine, Unspecified 11/25/2020 12:00:00 AM EDT completed MEDENT ([facility]) Medication administered onsite Nystatin - Nystatin - 11/17/2020 12:00:00 AM EDT active Nystatin - eCW1 ([facility]) Nystatin - Nystatin - 11/17/2020 12:00:00 AM EDT active Nystatin - eCW1 ([facility]) Nystatin - Nystatin - 11/17/2020 12:00:00 AM EDT active Nystatin - eCW1 ([facility]) Nystatin - Nystatin - 11/17/2020 12:00:00 AM EDT active Nystatin - eCW1 ([facility]) Nystatin - Nystatin - 11/17/2020 12:00:00 AM EDT active Nystatin - eCW1 ([facility]) Nystatin - Nystatin - 11/17/2020 12:00:00 AM EDT active Nystatin - eCW1 ([facility]) Nystatin - Nystatin - 11/17/2020 12:00:00 AM EDT active Nystatin - eCW1 ([facility]) Nystatin - Nystatin - 11/17/2020 12:00:00 AM EDT active Nystatin - eCW1 ([facility]) Nystatin - Nystatin - 11/17/2020 12:00:00 AM EDT active Nystatin - eCW1 ([facility]) Nystatin - Nystatin - 11/17/2020 12:00:00 AM EDT active Nystatin - eCW1 ([facility]) Nystatin - Nystatin - 11/17/2020 12:00:00 AM EDT active Nystatin - eCW1 ([facility]) Nystatin - Nystatin - 11/17/2020 12:00:00 AM EDT active Nystatin - eCW1 ([facility]) Nystatin - Nystatin - 11/17/2020 12:00:00 AM EDT active Nystatin - eCW1 ([facility]) Nystatin - Nystatin - 11/17/2020 12:00:00 AM EDT active Nystatin - eCW1 ([facility]) Nystatin - Nystatin - 11/17/2020 12:00:00 AM EDT active Nystatin - eCW1 ([facility]) Nystatin - Nystatin - 11/17/2020 12:00:00 AM EDT active Nystatin - eCW1 ([facility]) Nystatin - Nystatin - 11/17/2020 12:00:00 AM EDT active Nystatin - eCW1 ([facility]) Nystatin - Nystatin - 11/17/2020 12:00:00 AM EDT active Nystatin - eCW1 ([facility]) Covid-19 vaccine, Unspecified 10/28/2020 12:00:00 AM EST completed [facility]ENT ([facility] ) Medication administered onsite rivaroxaban 20 MG Oral Tablet rivaroxaban (XARELTO) 20 MG TABS rivaroxaban (XARELTO) 20 MG TABS 09/14/2020 12:00:00 AM EST 20 mg Oral active Take 1 tablet (20 mg total) by mouth daily with dinner [facility] 24 HR Metformin hydrochloride 500 MG Ext ended Release Oral Tablet MetFORMIN HCl ER 500 MG MetFORMIN HCl ER 500 MG 09/02/2020 12:00:00 AM EST active MetFORMIN HCl ER 500 MG eCW1 ([facility]) 24 HR Metformin hydrochloride 500 MG Ext ended Release Oral Tablet MetFORMIN HCl ER 500 MG MetFORMIN HCl ER 500 MG 09/02/2020 12:00:00 AM EST active MetFORMIN HCl ER 500 MG eCW1 ([facility]) 24 HR Metformin hydrochloride 500 MG Ext ended Release Oral Tablet metFORMIN HCl ER 500 MG metFORMIN HCl ER 500 MG 09/02/2020 12:00:00 AM EST active metFORMIN HCl ER 500 MG eCW1 ([facility]) 24 HR Metformin hydrochloride 500 MG Ext ended Release Oral Tablet metFORMIN HCl ER 500 MG metFORMIN HCl ER 500 MG 09/02/2020 12:00:00 AM EST active metFORMIN HCl ER 500 MG eCW1 ([facility]) 24 HR Metformin hydrochloride 500 MG Ext ended Release Oral Tablet metFORMIN HCl ER 500 MG metFORMIN HCl ER 500 MG 09/02/2020 12:00:00 AM EST active metFORMIN HCl ER 500 MG eCW1 ([facility]) 24 HR Metformin hydrochloride 500 MG Ext ended Release Oral Tablet metFORMIN HCl ER 500 MG metFORMIN HCl ER 500 MG 09/02/2020 12:00:00 AM EST active metFORMIN HCl ER 500 MG eCW1 ([facility]) 24 HR Metformin hydrochloride 500 MG Ext ended Release Oral Tablet MetFORMIN HCl ER 500 MG MetFORMIN HCl ER 500 MG 09/02/2020 12:00:00 AM EST active MetFORMIN HCl ER 500 MG eCW1 ([facility]) 24 HR Metformin hydrochloride 500 MG Ext ended Release Oral Tablet MetFORMIN HCl ER 500 MG MetFORMIN HCl ER 500 MG 09/02/2020 12:00:00 AM EST active MetFORMIN HCl ER 500 MG eCW1 ([facility]) 24 HR Metformin hydrochloride 500 MG Ext ended Release Oral Tablet metFORMIN HCl ER 500 MG metFORMIN HCl ER 500 MG 09/02/2020 12:00:00 AM EST active metFORMIN HCl ER 500 MG eCW1 ([facility]) 24 HR Metformin hydrochloride 500 MG Ext ended Release Oral Tablet MetFORMIN HCl ER 500 MG MetFORMIN HCl ER 500 MG 09/02/2020 12:00:00 AM EST active MetFORMIN HCl ER 500 MG eCW1 ([facility]) 24 HR Metformin hydrochloride 500 MG Ext ended Release Oral Tablet MetFORMIN HCl ER 500 MG MetFORMIN HCl ER 500 MG 09/02/2020 12:00:00 AM EST active MetFORMIN HCl ER 500 MG eCW1 ([facility]) 24 HR Metformin hydrochloride 500 MG Ext ended Release Oral Tablet MetFORMIN HCl ER 500 MG MetFORMIN HCl ER 500 MG 09/02/2020 12:00:00 AM EST active MetFORMIN HCl ER 500 MG eCW1 ([facility]) 24 HR Metformin hydrochloride 500 MG Ext ended Release Oral Tablet metFORMIN HCl ER 500 MG metFORMIN HCl ER 500 MG 09/02/2020 12:00:00 AM EST active metFORMIN HCl ER 500 MG eCW1 ([facility]) 24 HR Metformin hydrochloride 500 MG Ext ended Release Oral Tablet MetFORMIN HCl ER 500 MG MetFORMIN HCl ER 500 MG 09/02/2020 12:00:00 AM EST active MetFORMIN HCl ER 500 MG eCW1 ([facility]) 24 HR Metformin hydrochloride 500 MG Ext ended Release Oral Tablet metFORMIN HCl ER 500 MG metFORMIN HCl ER 500 MG 09/02/2020 12:00:00 AM EST suspended metFORMIN HCl ER 500 MG eCW1 ([facility]) 24 HR Metformin hydrochloride 500 MG Ext ended Release Oral Tablet MetFORMIN HCl ER 500 MG MetFORMIN HCl ER 500 MG 09/02/2020 12:00:00 AM EST active MetFORMIN HCl ER 500 MG eCW1 ([facility]) 24 HR Metformin hydrochloride 500 MG Ext ended Release Oral Tablet metFORMIN HCl ER 500 MG metFORMIN HCl ER 500 MG 09/02/2020 12:00:00 AM EST active metFORMIN HCl ER 500 MG eCW1 ([facility]) 24 HR Metformin hydrochloride 500 MG Ext ended Release Oral Tablet MetFORMIN HCl ER 500 MG MetFORMIN HCl ER 500 MG 09/02/2020 12:00:00 AM EST active MetFORMIN HCl ER 500 MG eCW1 ([facility]) 24 HR Metformin hydrochloride 500 MG Ext ended Release Oral Tablet MetFORMIN HCl ER 500 MG MetFORMIN HCl ER 500 MG 09/02/2020 12:00:00 AM EST active MetFORMIN HCl ER 500 MG eCW1 ([facility]) 24 HR Metformin hydrochloride 500 MG Ext ended Release Oral Tablet MetFORMIN HCl ER 500 MG MetFORMIN HCl ER 500 MG 09/02/2020 12:00:00 AM EST active MetFORMIN HCl ER 500 MG eCW1 ([facility]) 24 HR Metformin hydrochloride 500 MG Ext ended Release Oral Tablet metFORMIN HCl ER 500 MG metFORMIN HCl ER 500 MG 09/02/2020 12:00:00 AM EST active metFORMIN HCl ER 500 MG eCW1 ([facility]) 24 HR Metformin hydrochloride 500 MG Ext ended Release Oral Tablet MetFORMIN HCl ER 500 MG MetFORMIN HCl ER 500 MG 09/02/2020 12:00:00 AM EST active MetFORMIN HCl ER 500 MG eCW1 ([facility]) 24 HR Metformin hydrochloride 500 MG Ext ended Release Oral Tablet MetFORMIN HCl ER 500 MG MetFORMIN HCl ER 500 MG 09/02/2020 12:00:00 AM EST active MetFORMIN HCl ER 500 MG eCW1 ([facility]) Accu-Chek [place] 1 UNK 08/16/2020 12:00:00 AM EST active Accu-Chek [place] 1 eCW1 ([facility]) Accu-Chek [place] 1 UNK 08/16/2020 12:00:00 AM EST active Accu-Chek [place] 1 eCW1 ([facility]) Blood Glucose Test 1 UNK 08/16/2020 12:00:00 AM EST active Blood Glucose Test 1 eCW1 ([facility]) Accu-Chek [place] 1 UNK 08/16/2020 12:00:00 AM EST active Accu-Chek [place] 1 eCW1 ([facility]) Accu-Chek Soft Touch Lancets 1 UNK 08/16/2020 12:00:00 AM EST active Accu-Chek Soft Touch Lancets 1 eCW1 ([facility]) Accu-Chek [place] 1 UNK 08/16/2020 12:00:00 AM EST active Accu-Chek [place] 1 eCW1 ([facility]) Accu-Chek [place] 1 UNK 08/16/2020 12:00:00 AM EST active Accu-Chek [place] 1 eCW1 ([facility]) Accu-Chek [place] 1 UNK 08/16/2020 12:00:00 AM EST active Accu-Chek [place] 1 eCW1 ([facility]) Accu-Chek [place] 1 UNK 08/16/2020 12:00:00 AM EST active Accu-Chek [place] 1 eCW1 ([facility]) Accu-Chek [place] 1 UNK 08/16/2020 12:00:00 AM EST active Accu-Chek [place] 1 eCW1 ([facility]) Accu-Chek [place] 1 UNK 08/16/2020 12:00:00 AM EST active Accu-Chek [place] 1 eCW1 ([facility]) Accu-Chek Soft Touch Lancets 1 UNK 08/16/2020 12:00:00 AM EST active Accu-Chek Soft Touch Lancets 1 eCW1 ([facility]) Accu-Chek Soft Touch Lancets 1 UNK 08/16/2020 12:00:00 AM EST active Accu-Chek Soft Touch Lancets 1 eCW1 ([facility]) Blood Glucose Test 1 UNK 08/16/2020 12:00:00 AM EST active Blood Glucose Test 1 eCW1 ([facility]) Accu-Chek Soft Touch Lancets 1 UNK 08/16/2020 12:00:00 AM EST active Accu-Chek Soft Touch Lancets 1 eCW1 ([facility]) Accu-Chek [place] 1 UNK 08/16/2020 12:00:00 AM EST active Accu-Chek [place] 1 eCW1 ([facility]) Blood Glucose Test 1 UNK 08/16/2020 12:00:00 AM EST active Blood Glucose Test 1 eCW1 ([facility]) Accu-Chek [place] 1 UNK 08/16/2020 12:00:00 AM EST active Accu-Chek [place] 1 eCW1 ([facility]) Accu-Chek Soft Touch Lancets 1 UNK 08/16/2020 12:00:00 AM EST active Accu-Chek Soft Touch Lancets 1 eCW1 ([facility]) Blood Glucose Test 1 UNK 08/16/2020 12:00:00 AM EST active Blood Glucose Test 1 eCW1 ([facility]) Accu-Chek Soft Touch Lancets 1 UNK 08/16/2020 12:00:00 AM EST active Accu-Chek Soft Touch Lancets 1 eCW1 ([facility]) Accu-Chek Soft Touch Lancets 1 UNK 08/16/2020 12:00:00 AM EST active Accu-Chek Soft Touch Lancets 1 eCW1 ([facility]) Accu-Chek [place] 1 UNK 08/16/2020 12:00:00 AM EST active Accu-Chek [place] 1 eCW1 ([facility]) Accu-Chek [place] 1 UNK 08/16/2020 12:00:00 AM EST active Accu-Chek [place] 1 eCW1 ([facility]) Accu-Chek Soft Touch Lancets 1 UNK 08/16/2020 12:00:00 AM EST active Accu-Chek Soft Touch Lancets 1 eCW1 ([facility]) Blood Glucose Test 1 UNK 08/16/2020 12:00:00 AM EST active Blood Glucose Test 1 eCW1 ([facility]) Accu-Chek [place] 1 UNK 08/16/2020 12:00:00 AM EST active Accu-Chek [place] 1 eCW1 ([facility]) Blood Glucose Test 1 UNK 08/16/2020 12:00:00 AM EST active Blood Glucose Test 1 eCW1 ([facility]) Accu-Chek [place] 1 UNK 08/16/2020 12:00:00 AM EST active Accu-Chek [place] 1 eCW1 ([facility]) Blood Glucose Test 1 UNK 08/16/2020 12:00:00 AM EST active Blood Glucose Test 1 eCW1 ([facility]) Accu-Chek [place] 1 UNK 08/16/2020 12:00:00 AM EST active Accu-Chek [place] 1 eCW1 ([facility]) Blood Glucose Test 1 UNK 08/16/2020 12:00:00 AM EST active Blood Glucose Test 1 eCW1 ([facility]) Blood Glucose Test 1 UNK 08/16/2020 12:00:00 AM EST active Blood Glucose Test 1 eCW1 ([facility]) Accu-Chek Soft Touch Lancets 1 UNK 08/16/2020 12:00:00 AM EST active Accu-Chek Soft Touch Lancets 1 eCW1 ([facility]) Blood Glucose Test 1 UNK 08/16/2020 12:00:00 AM EST active Blood Glucose Test 1 eCW1 ([facility]) Blood Glucose Test 1 UNK 08/16/2020 12:00:00 AM EST active Blood Glucose Test 1 eCW1 ([facility]) Accu-Chek Soft Touch Lancets 1 UNK 08/16/2020 12:00:00 AM EST active Accu-Chek Soft Touch Lancets 1 eCW1 ([facility]) Accu-Chek Soft Touch Lancets 1 UNK 08/16/2020 12:00:00 AM EST active Accu-Chek Soft Touch Lancets 1 eCW1 ([facility]) Blood Glucose Test 1 UNK 08/16/2020 12:00:00 AM EST active Blood Glucose Test 1 eCW1 ([facility]) Blood Glucose Test 1 UNK 08/16/2020 12:00:00 AM EST active Blood Glucose Test 1 eCW1 ([facility]) Accu-Chek Soft Touch Lancets 1 UNK 08/16/2020 12:00:00 AM EST active Accu-Chek Soft Touch Lancets 1 eCW1 ([facility]) Blood Glucose Test 1 UNK 08/16/2020 12:00:00 AM EST active Blood Glucose Test 1 eCW1 ([facility]) Blood Glucose Test 1 UNK 08/16/2020 12:00:00 AM EST active Blood Glucose Test 1 eCW1 ([facility]) Accu-Chek [place] 1 UNK 08/16/2020 12:00:00 AM EST active Accu-Chek [place] 1 eCW1 ([facility]) Blood Glucose Test 1 UNK 08/16/2020 12:00:00 AM EST active Blood Glucose Test 1 eCW1 ([facility]) Accu-Chek Soft Touch Lancets 1 UNK 08/16/2020 12:00:00 AM EST active Accu-Chek Soft Touch Lancets 1 eCW1 ([facility]) Accu-Chek Soft Touch Lancets 1 UNK 08/16/2020 12:00:00 AM EST active Accu-Chek Soft Touch Lancets 1 eCW1 ([facility]) Blood Glucose Test 1 UNK 08/16/2020 12:00:00 AM EST active Blood Glucose Test 1 eCW1 ([facility]) Accu-Chek Soft Touch Lancets 1 UNK 08/16/2020 12:00:00 AM EST active Accu-Chek Soft Touch Lancets 1 eCW1 ([facility]) Accu-Chek [place] 1 UNK 08/16/2020 12:00:00 AM EST active Accu-Chek [place] 1 eCW1 ([facility]) Blood Glucose Test 1 UNK 08/16/2020 12:00:00 AM EST active Blood Glucose Test 1 eCW1 ([facility]) Accu-Chek Soft Touch Lancets 1 UNK 08/16/2020 12:00:00 AM EST active Accu-Chek Soft Touch Lancets 1 eCW1 ([facility]) Accu-Chek Soft Touch Lancets 1 UNK 08/16/2020 12:00:00 AM EST active Accu-Chek Soft Touch Lancets 1 eCW1 ([facility]) Accu-Chek Soft Touch Lancets 1 UNK 08/16/2020 12:00:00 AM EST active Accu-Chek Soft Touch Lancets 1 eCW1 ([facility]) Blood Glucose Test 1 UNK 08/16/2020 12:00:00 AM EST active Blood Glucose Test 1 eCW1 ([facility]) Blood Glucose Test 1 UNK 08/16/2020 12:00:00 AM EST active Blood Glucose Test 1 eCW1 ([facility]) Blood Glucose Test 1 UNK 08/16/2020 12:00:00 AM EST active Blood Glucose Test 1 eCW1 ([facility]) Accu-Chek [place] 1 UNK 08/16/2020 12:00:00 AM EST active Accu-Chek [place] 1 eCW1 ([facility]) Accu-Chek Soft Touch Lancets 1 UNK 08/16/2020 12:00:00 AM EST active Accu-Chek Soft Touch Lancets 1 eCW1 ([facility]) Blood Glucose Test 1 UNK 08/16/2020 12:00:00 AM EST active Blood Glucose Test 1 eCW1 ([facility]) Accu-Chek [place] 1 UNK 08/16/2020 12:00:00 AM EST active Accu-Chek [place] 1 eCW1 ([facility]) Accu-Chek Soft Touch Lancets 1 UNK 08/16/2020 12:00:00 AM EST active Accu-Chek Soft Touch Lancets 1 eCW1 ([facility]) Accu-Chek [place] 1 UNK 08/16/2020 12:00:00 AM EST active Accu-Chek [place] 1 eCW1 ([facility]) Accu-Chek Soft Touch Lancets 1 UNK 08/16/2020 12:00:00 AM EST active Accu-Chek Soft Touch Lancets 1 eCW1 ([facility]) Accu-Chek Soft Touch Lancets 1 UNK 08/16/2020 12:00:00 AM EST active Accu-Chek Soft Touch Lancets 1 eCW1 ([facility]) Accu-Chek Soft Touch Lancets 1 UNK 08/16/2020 12:00:00 AM EST active Accu-Chek Soft Touch Lancets 1 eCW1 ([facility]) Blood Glucose Test 1 UNK 08/16/2020 12:00:00 AM EST active Blood Glucose Test 1 eCW1 ([facility]) Accu-Chek [place] 1 UNK 08/16/2020 12:00:00 AM EST active Accu-Chek [place] 1 eCW1 ([facility]) Accu-Chek Soft Touch Lancets 1 UNK 08/16/2020 12:00:00 AM EST active Accu-Chek Soft Touch Lancets 1 eCW1 ([facility]) Accu-Chek Soft Touch Lancets 1 UNK 08/16/2020 12:00:00 AM EST active Accu-Chek Soft Touch Lancets 1 eCW1 ([facility]) Accu-Chek Soft Touch Lancets 1 UNK 08/16/2020 12:00:00 AM EST active Accu-Chek Soft Touch Lancets 1 eCW1 ([facility]) Blood Glucose Test 1 UNK 08/16/2020 12:00:00 AM EST active Blood Glucose Test 1 eCW1 ([facility]) Blood Glucose Test 1 UNK 08/16/2020 12:00:00 AM EST active Blood Glucose Test 1 eCW1 ([facility]) Accu-Chek [place] 1 UNK 08/16/2020 12:00:00 AM EST active Accu-Chek [place] 1 eCW1 ([facility]) Blood Glucose Test 1 UNK 08/16/2020 12:00:00 AM EST active Blood Glucose Test 1 eCW1 ([facility]) Accu-Chek [place] 1 UNK 08/16/2020 12:00:00 AM EST active Accu-Chek [place] 1 eCW1 ([facility]) Blood Glucose Test 1 UNK 08/16/2020 12:00:00 AM EST active Blood Glucose Test 1 eCW1 ([facility]) Accu-Chek [place] 1 UNK 08/16/2020 12:00:00 AM EST active Accu-Chek [place] 1 eCW1 ([facility]) Accu-Chek Soft Touch Lancets 1 UNK 08/16/2020 12:00:00 AM EST active Accu-Chek Soft Touch Lancets 1 eCW1 ([facility]) Accu-Chek [place] 1 UNK 08/16/2020 12:00:00 AM EST active Accu-Chek [place] 1 eCW1 ([facility]) Accu-Chek [place] 1 UNK 08/16/2020 12:00:00 AM EST active Accu-Chek [place] 1 eCW1 ([facility]) FreeStyle Precision Adam Test - FreeStyle Precision Adam Test - 08/15/2020 12:00:00 AM EST active FreeStyl e Precision Adam Test - eCW1 ([facility]) FreeStyle Precision Adam Test - FreeStyle Precision Adam Test - 08/15/2020 12:00:00 AM EST suspended FreeS tyle Precision Adam Test - eCW1 ([facility]) FreeStyle Precision Adam Test - FreeStyle Precision Adam Test - 08/15/2020 12:00:00 AM EST active FreeStyl e Precision Adam Test - eCW1 ([facility]) FreeStyle Precision Adam Test - FreeStyle Precision Adam Test - 08/15/2020 12:00:00 AM EST active FreeStyl e Precision Adam Test - eCW1 ([facility]) FreeStyle Precision Adam Test - FreeStyle Precision Adam Test - 08/15/2020 12:00:00 AM EST suspended FreeS tyle Precision Adam Test - eCW1 ([facility]) FreeStyle Precision Adam Test - FreeStyle Precision Adam Test - 08/15/2020 12:00:00 AM EST suspended FreeS tyle Precision Adam Test - eCW1 ([facility]) FreeStyle Precision Adam Test - FreeStyle Precision Adam Test - 08/15/2020 12:00:00 AM EST suspended FreeS tyle Precision Adam Test - eCW1 ([facility]) FreeStyle Precision Adam Test - FreeStyle Precision Adam Test - 08/15/2020 12:00:00 AM EST active FreeStyl e Precision Adam Test - eCW1 ([facility]) FreeStyle Precision Adam Test - FreeStyle Precision Adam Test - 08/15/2020 12:00:00 AM EST active FreeStyl e Precision Adam Test - eCW1 ([facility]) FreeStyle Precision Adam Test - FreeStyle Precision Adam Test - 08/15/2020 12:00:00 AM EST active FreeStyl e Precision Adam Test - eCW1 ([facility]) FreeStyle Precision Adam Test - FreeStyle Precision Adam Test - 08/15/2020 12:00:00 AM EST suspended FreeS tyle Precision Adam Test - eCW1 ([facility]) FreeStyle Precision Adam Test - FreeStyle Precision Adam Test - 08/15/2020 12:00:00 AM EST active FreeStyl e Precision Adam Test - eCW1 ([facility]) FreeStyle Precision Adam Test - FreeStyle Precision Adam Test - 08/15/2020 12:00:00 AM EST suspended FreeS tyle Precision Adam Test - eCW1 ([facility]) FreeStyle Precision Adam Test - FreeStyle Precision Adam Test - 08/15/2020 12:00:00 AM EST active FreeStyl e Precision Adam Test - eCW1 ([facility]) FreeStyle Precision Adam Test - FreeStyle Precision Adam Test - 08/15/2020 12:00:00 AM EST active FreeStyl e Precision Adam Test - eCW1 ([facility]) benzonatate 200 MG Oral Capsule benzonatate (TESSALON) 200 MG capsule benzonatate (TESSALON) 200 MG capsule 08/20/2019 12:00:00 AM EST aborted daily as needed [facility] Albuterol 0.83 MG/ML Inhalant Solution a lbuterol (PROVENTIL) (2.5 MG/3ML) 0.083% nebulizer solution albuterol (PROVENTIL) (2.5 MG/3ML) 0.083% nebulizer so lution 08/20/2019 12:00:00 AM EST aborted INHALE CONTENTS OF 1 VIAL VIA NEBULIZER FOUR TIMES DAILY NEEDED FOR WHEEZING [facility] tizanidine 4 MG Oral Tablet tiZANidine (ZANAFLEX) 4 MG tablet tiZANidine (ZANAFLEX) 4 MG tablet 4 mg Oral aborted Take 4 mg by mouth every 8 (eight) hours as needed (for muscle spasms) [facility] Metoprolol Tartrate 25 MG Oral Tablet me toprolol tartrate (LOPRESSOR) 25 MG tablet metoprolol tartrate (LOPRESSOR) 25 MG tablet 25 mg Ora l aborted Take 25 mg by mouth See Admin Instructio ns PRN if BP is >140/80 [facility] Insurance Providers Payer name Policy type / Coverage type Policy ID Covered republican ID Covered republican's relationship to batista Policy Batista Plan Information [employer] [id number] [facility] 2 [id number] SELF [id number] Medicare - [place] Medicare Primary [id number] Self 0 [id number] Medicare C [id number] SELF [id number] A MEDICARE A [id number] Self [id number] A MEDICARE [id number] Shanthi [id number] A Medicare - NGS Medicare Primary [id number] Self 0 [id number] Medicare - NGS Medicare Primary [id number] Self 0 [id number] A DME Jurisdiction A [facility] C [id number] SELF [id number] Medicare C [id number] SELF [id number] A Medicaid [facility] S D [id number] SELF [id number] MEDICAID M [id number] Self [id number] MEDICAID [id number] Shanthi [id number] MEDICAID [id number] xxxxxxxx [id number] [facility] Comm Plan Medicare F [id number] SELF [id number] [facility] Comm Plan Medicare F [id number] SELF [id number] [facility] MEDICARE [id number] Shanthi [id number] 50 [facility] HEA [id number] [id number] [facility] MEDICARE [id number] xxxxxxxxx [id number] 1 MEDICAID [id number] SP [id number] [facility] MCRO [id number] SP [id number] [facility] MCRO [id number] SP [id number] Medicare Community Plan Commercial [id number] Self 1 [id number] Medicare Community Plan Commercial [id number] Self 1 [id number] [facility] [id number] SP [id number] MEDICAID [id number] SP [id number] MEDICAID [id number] SP [id number] [facility] MCRO [id number] SP [id number] [facility] Commercial Insurance Co. [id number] Self [id number] Medicaid Medicaid [id number] Self [id number] ANSI-Commercial [id number]-[id number] ANSI-Commercial [id number]-5b7z-4h6g-[id number] e94w33re-9n9k-9k0m-2s18-2a2sut69c098 ANSI-Not a Secondary Insurance [id number]-9lg0-d1t8-50x3w [id number]-4sz9-[id number] ANSI-Medicaid [id number] ANSI-Medicaid [id number]-h7qd-[id number] ANSI-Not a Secondary Insurance 17k47vq6-0ie3-1317-f5ma-145yr jzy633n 15f11sd0-4tg6-0787-n0id-667xyxty731h ANSI-Commercial [id number]-p1hc-5226-7x3p-igm95i9qs6wv 2v670327-d2qb-3919-0r1t-pqa23t9do6di ANSI-Commercial 83y9hq19-47o0-5oa6-370h-3bh50n9y9l48 40u0uv88-96w2-0ut7-169q-3xq32z3w9u99 ANSI-Medicaid [id number] ANSI-Not a Secondary Insurance [id number] 34bebdd [id number] [place] Part [place] [id number] Self [id number] ANSI-Commercial [id number] [id number] ANSI-Medicaid [id number]-[id number] ANSI-Not a Secondary Insurance 84lgzo08-5ev3-4ie1-559p-l78xz h35e7d5 39ckpe36-5tm1-2tp6-263v-n21jqz55l4j0 ANSI-Commercial 4ue14f2w-51v3-8223-t48u-63f801oa7v1v 1xj74x1a-27x4-2778-b09c-97z671bt0x5k ANSI-Medicaid [id number] ANSI-Not a Secondary Insurance 8920m4rr-s6qi-412g-2v18-fr5xo [id number] 1898n8pu-n9sr-081q-8s95-ip7mn3e86866 ANSI-Not a Secondary Insurance 75e2724m-j1im-1y0x-774y-f3223 ubie1ir 83g7411x-u7xk-4j6b-262k-f5592kjha2ae ANSI-Medicaid [id number] ANSI-Commercial u1464w79-kn5u-845h-[id number] q9471a25-wj6a-373q-[id number] ANSI-Not a Secondary Insurance p51f8i3w-942a-29hr-0b84-gx3f3 y7917hb r27f6f8u-738t-03jy-0b73-la7b9v9380oa ANSI-Commercial 15d4vo2u-h0bi-3e32-d799-6b86v2hmi6f9 66i5cv0b-b2vi-2u66-c539-4f93c7wpw0o8 ANSI-Medicaid [id number] ANSI-Commercial 5n2or3h4-6446-5ofi-2x08-441o2t9i4ktq 8p0pw8e1-2341-8kjm-7r68-227o9u6j1ldm ANSI-Not a Secondary Insurance 2034bz54-1rg6-8cr8-33z2-35900 [id number] 6082oy18-5oe1-9mr9-22o6-020315937231 ANSI-Medicaid [id number]-rmvy-[id number] ANSI-Medicaid [id number] ANSI-Not a Secondary Insurance 35b8i42g-485q-1do4-4467-6atw0 9gjh4w7 50b8o65h-922m-7mv1-2976-5abe89elq8q6 ANSI-Commercial 3x72zx2f-e26f-67vc-ly72-t1cbdsm4l84d 5p49yg2b-u36l-91ho-vo72-r7mjvyb4c51d ANSI-Medicaid [id number] ANSI-Not a Secondary Insurance [id number]-i2i0-0197-2aox-4310d [id number] 56042768-d7i5-0761-9krt-1737al807362 ANSI-Commercial 34348zur-651n-41s2-6580-80y300861862 86244tmr-314i-27y2-3399-08l983901195 ANSI-Not a Secondary Insurance pa945fk4-m92a-1h28-f62p-cr3wo 7p10199 ml983pc7-o74h-1n68-i54h-tx7dr1r11323 ANSI-Commercial 2375ikw2-7542-6170-u5d5-0888ls225h1e 3908thf6-1517-2536-o7p9-7060ur444s7n ANSI-Medicaid [id number] 119y2l82-xn96-1150-j2ws-2rtqm3g3a3u8 ANSI-Commercial 7lz8l29d-75v8-23d6-r468-63983cnzu0h5 8rw9o70z-80g3-05b5-i609-78147yuhg9b2 ANSI-Not a Secondary Insurance s56e64l2-q488-0552-w6b7-7fb1w yds5768 c17g49i4-x448-4980-a0i6-4kr2frot0123 ANSI-Medicaid [id number] ANSI-Not a Secondary Insurance 0xb57wt1-04j0-8461-n85i-g5cz3 10cf7q4 0hp17po8-38l3-4180-g95p-a6uu695hv3g7 ANSI-Commercial w93933z9-v923-6g7a-d51m-a4qj2w3h8b6c c25369v5-f314-1v3h-t41x-l3kt5s7z6e2f ANSI-Medicaid [id number]-[id number]-[id number] 9qif49fq-456o-196e-3q2k-b212qi45e477 ANSI-Not a Secondary Insurance gly2692r-91v6-04dk-7c40-cg52o 1o7195y nug8714j-88c7-29hv-6u22-oz25r5n5458y ANSI-Medicaid [id number]-ya59-928s6ir3996h ANSI-Commercial c6g64tu2-388k-2527-vb84-l45chh301437 h0x76of7-573u-4568-wg90-j36tea038043 ANSI-Medicaid [id number] 320f3ue8-f514-1u5i-[id number] ANSI-Not a Secondary Insurance 3266pt49-3cg8-9s8d-4649-b899v i300cga 1933nn29-9qn5-0h5s-5260-l872vv775efs ANSI-Commercial 2wu4099u-90a8-5992-v8o2-081aqisd6fu9 2hw0722u-53r5-3528-o6i1-870hyjhd2si5 ANSI-Not a Secondary Insurance al0l42j4-7168-2ui7-8932-1x2an nv1x51u rr0p57p1-2517-1ma5-2546-4n0tsof2f33p ANSI-Medicaid [id number]-39a5-[id number] dz5lbf28-0c4p-86d8-j3s8-x8e3r370m70v ANSI-Commercial 6z8k04u3-4960-8yd1-71fn-04uac6x473wq 3w9a06x0-2809-5rl3-03ba-11zgx2c767un ANSI-Medicaid 254m2e95-gjn0-388x-[id number] 703y7n75-ivj5-932v-6qw3-48o13k3e1n01 ANSI-Not a Secondary Insurance 3d828684-n5t5-4u00-d37r-a5941 6sl264c 9t808998-q0d1-4w09-a22w-g25107eq353i ANSI-Commercial 2mf30t58-8au5-08rq-62fc-719fo58529r3 6ff26c92-7xl9-00zt-78jc-065kr17354f1 ANSI-Medicaid [id number] ANSI-Not a Secondary Insurance q40965nn-12a7-99iy-xr51-4d88o b1ep74y j04553ri-10l8-36hx-dx63-2a67of1bq84z ANSI-Commercial 6saeymh6-82e7-9z18-bsf5-51lsb1s4gtjb 8efwhuo4-96h3-8m20-apu9-09evd1y1dsqs [facility] [id number] SP [id number] [facility] [id number] SP [id number] ANSI-Not a Secondary Insurance 3o3x6dgm-l685-0vq3-o0h3-sz1cd x613qj6 0k8g7jyv-d726-2pq5-p5i5-rf4fnt452yr8 ANSI-Medicaid [id number]-[id number] ANSI-Commercial 17228052-s602-88g6-6qyw-4g69hfc3o790 67351479-a016-42u8-9ljl-5c12iol7d609 ANSI-Not a Secondary Insurance 5927mf10-7880-6uz0-h01e-8w0d9 quoqo2v 1339hg96-0452-6hl3-u78a-6q5v7faobp6x ANSI-Medicaid [id number] 993p10da-d047-8jx8-7ht5-3a739v783la0 ANSI-Commercial 5rj5m99w-ao1o-16wq-6q14-v640585g6401 8hx2i40f-ma0j-39za-0e26-l132691q5429 ANSI-Commercial doh4326g-067l-96ed-k9y2-062a21x4z82x avt6586d-858u-47fw-o6i0-406a26w6c86h ANSI-Not a Secondary Insurance 3dbj081o-56kj-8ue2-9933-6s57i p162n45 2ewu913c-86mf-8wv8-8608-1z89ip782p23 ANSI-Medicaid [id number]-9408-[id number] 9395i4d4-26d6-7vob-4665-n89mb1owv4fg ANSI-Commercial s0v72e84-62j8-4y74-x981-ot15dj4o4711 m9u68o09-52h2-6g69-x935-bl01ah7j3557 ANSI-Medicaid [id number]-j1kz-[id number] ANSI-Medicare Part B [id number] ANSI-Medicaid [id number] yqx78lz0-0000-8006-g9jk-[id number] ANSI-Medicaid [id number] mmdj0g3a-1q65-7369-c391-20z878x8g1j8 ANSI-Medicare Part B [id number]-[id number] ANSI-Commercial btg8h86n-8751-19l5-295q-f6tl3pif2al2 jvx3b96a-3958-47d4-224g-c3lg3xtj2he5 ANSI-Medicaid [id number] enp723pj-ot4n-155s-[id number] ANSI-Commercial 80mqqk4q-3k7i-81aq-e724-r8s71ti9ug94 22lhlg3z-5x7g-23je-s004-q1d40ky0vl34 ANSI-Medicaid [id number] 33fhv7cn-16m9-5m69-84y2-s3q5yg750t6o ANSI-Medicare Part B [id number] ANSI-Medicaid [id number]-lzml-[id number] ANSI-Medicaid [id number] ANSI-Medicare Part B [id number] ANSI-Medicaid [id number]-50gt-0ik0-225h-[id number] 4933n6st-45db-2yr4-928m-u2q66y4p59h6 ANSI-Commercial 0kf9251a-h81e-4180-0262-e49u288d5a03 9xo4519z-q92g-6273-1652-p71a965l0s65 ANSI-Medicaid 74jnj7e6-p5rr-0zgi-[id number] 22hro2r6-k0bz-0bfe-v0m3-44h936h92384 ANSI-Medicaid [id number]-1qg0-[id number]-1fa4-d9i1-9m398ti35227 ANSI-Commercial 8m39s19p-5jll-024p-177e-3k163vrnhz45 9z77p70i-7qwf-747z-637m-8l087pkedr10 ANSI-Medicare Part B [id number] ANSI-Medicare Part B [id number]-p28t-5rd461o4vhrh ANSI-Commercial 611em562-8q4y-5p52-k13r-97fqki5z53h5 816mt715-6b7c-1u99-k92z-57joae2s66o5 ANSI-Medicaid [id number]-[id number] 43z1phs3-u904-5x4u-[id number] [place] [id number] SP [id number] E ANSI-Medicare Part B [id number] ANSI-Medicaid [id number]-[id number] kc1e0mzq-5303-63j3-jlz2-a689oyn08400 ANSI-Medicaid [id number]-42wn-7yrl-lo9f9untfnte k9f02701-79ed-56vi-9uab-xy8e6oopzzlb ANSI-Commercial vgu88yg0-41e7-5a03-uoxg-2a55s59n8c52 xle00sg2-84t4-1f76-rzkk-2s63i91g1j91 ANSI-Commercial 50r510a9-8198-0o55-z28p-e04p28o4t092 08z214x3-2133-8w98-t17p-l10g14u3q752 ANSI-Medicaid [id number]-28xa-[id number] ANSI-Medicaid [id number]-[id number] 89203q34-m4w9-18v7-x7m4-39ppd3fd2l12 ANSI-Medicare Part B [id number]-ym3e-[id number] ANSI-Medicaid [id number]-[id number] ANSI-Medicaid [id number] ANSI-Medicare Part B [id number]-cr2j-9859-[id number] ANSI-Commercial 8co6394f-u56x-9141-dsf9-5823p0e2501p 5rd7162q-c84f-4562-psx4-3710o2k1003t ANSI-Medicaid [id number] 87u7m0di-4302-38zv-[id number] ANSI-Commercial 339nysch-o66w-79d9x73p-31d0-g283-27g7u509j12j 470ztxac-f31s-36n2a98z-31r0-m525-06o0o805f56f ANSI-Medicaid [id number] ANSI-Medicare Part B [id number] ANSI-Commercial pc377800-9435-0o85-150q-24t44b7s0947 am092731-0046-0n90-586w-59q77r5j2720 ANSI-Medicaid [id number]-[id number]l-[id number] ANSI-Medicaid [id number] ANSI-Medicare Part B [id number] ANSI-Medicaid [id number]-3o7l-[id number] ANSI-Commercial [id number]-0y5x-8tqo203ca855 7i668133-7q14-58aw-5g8k-1wdg807fz821 ANSI-Medicaid [id number]-[id number] ANSI-Medicare Part B [id number] ANSI-Medicaid [id number]-[id number] ANSI-Medicare Part B [id number] ANSI-Medicaid [id number] 0b4m912j-5797-25c9-[id number] ANSI-Commercial 6760y94g-4scj-6rh4-842k-ow254ph1wpa0 9874c30l-7ctd-2mg7-540e-gd221wq4xxl0 ANSI-Medicaid [id number]-n792-7p8i-qwz2-ct65ua2doz52 ANSI-Medicaid [id number] ANSI-Medicare Part B [id number]-[id number]-[id number] ANSI-Commercial 36b4e30m-0358-8r4z-4397-p85b3yv59852 77f2d10b-9601-4s3q-5619-d17q6ce67439 ANSI-Medicare Part B [id number] ANSI-Commercial fzr85075-q71v-9nmi-4ao3-82z08u4a2591 idx77674-q84y-2uyc-7kj3-21x74t2u2587 ANSI-Medicaid [id number] ANSI-Medicaid [id number] Medicaid [facility] Part B [id number] Self [id number] [id number] Self [id number] MEDICAID HE [id number] S [id number] [facility] [id number] S [id number] UNAVAILABLE UNAVAILA BLE [facility] [id number] S [id number] [facility]) O [id number] S [id number] MEDICAID [id number] SP [id number] MEDICARE [id number] SP [id number] A MEDICAID W [id number] S [id number] MEDICARE PART A M [id number] S [id number] MEDICAID W [id number] S [id number] MEDICARE M [id number] S [id number] A MEDICAID W [id number] S [id number] WORKERS COMPENSATION DOES NOT APPLY THIS VISIT SP DOES NOT APPLY THIS VISIT OTHER WORKERS COMPENSATION DOES NOT APPLY THIS VISIT SP DOES NOT APPLY THIS VISIT SAUNDRA DURHAM DOES NOT APPLY THIS VISIT SP DOES NOT APPLY THIS VISIT HONYTRUST [id number] SP [id number] [employer] [id number] SP [id number] [employer] [place] PPO [id number] SP [id number] [employer] [place] PPO 302/307 [id number] SP [id number] HONYTRUST [id number] SP [id number] SELF PAY UNAVAILABLE SP UNAVAILA BLE OTHER WORKERS COMPENSATION [id number] SP [id number] [facility] ADMINISTATORS [id number] SP [id number] ANSI-Medicaid [id number] [id number] [id number] [place] [id number] SP [id number] [facility]) O [id number] S [id number] MEDICAID M [id number] S [id number] MEDICAID [id number] SP [id number] MEDICARE COMPLETE [id number] SP [id number] [facility]ICARE COMPLETE[facility] O [id number] S [id number] ANSI-Commercial piln88j1-[id number] lync90w8-[id number] ANSI-Medicaid [id number] ANSI-Not a Secondary Insurance [id number] ANSI-Not a Secondary Insurance [id number] ANSI-Commercial [id number] ANSI-Medicaid [id number] ANSI-Medicaid [id number] ANSI-Not a Secondary Insurance [id number] ANSI-Commercial [id number] ANSI-Medicaid [id number] ANSI-Not a Secondary Insurance [id number] ANSI-Commercial [id number] ANSI-Medicaid [id number] ANSI-Commercial [id number] ANSI-Not a Secondary Insurance [id number] ANSI-Medicaid [id number] ANSI-Not a Secondary Insurance [id number] ANSI-Commercial [id number] ANSI-Not a Secondary Insurance [id number] ANSI-Commercial [id number] ANSI-Medicaid [id number] ANSI-Not a Secondary Insurance [id number] ANSI-Medicaid [id number] Problems, Conditions, and Diagnoses Code Display Name Description Problem Type Effective Dates Data Source(s) I15.9 Secondary hypertension, unspecified Secondary hy pertension, unspecified Diagnosis 01/11/2021 07:45:19 AM EDT [facility] E11.9 Type 2 diabetes mellitus without complic ations Type 2 diabetes mellitus without complic Diagnosis 01/11/2021 07:45:19 AM EDT [facility] Z86.718 Personal history of other venous thrombo sis and embolism Personal history of other venous thrombo Diagnosis 01/11/2021 07:45:19 AM EDT [facility] Z68.41 Body mass index (BMI) 40.0-44.9, adult B tavia mass index (BMI)40.0-44.9, adult Diagnosis 01/11/2021 07:45:19 AM EDT [facility] E66.01 Morbid (severe) obesity due to excess ca lories Morbid (severe) obesity due to excess ca Diagnosis 01/11/2021 07:45:19 AM EDT [facility] I48.0 Paroxysmal atrial fibrillation Paroxysmal atrial fibri llation Diagnosis 01/11/2021 07:45:19 AM EDT [facility] J30.9 Allergic rhinitis Allergic rhinitis Problem 06/08/2021 12:00:00 AM EDT eCW1 ([facility]) M47.816 [id number] Lumbar Facet arthropathy Problem 06/02/2021 12:00:00 AM EDT eCW1 ([facility]) Z80.0 [id number] FH: colon cancer Problem 12/15/2020 12:00:00 AM EDT eCW1 ([facility]) G89.29 Chronic pain Other chronic pain Problem 06/13/2020 12:0 0:00 AM EDT eCW1 ([facility]) M47.816 [id number] Spondylosis without myelopathy or radiculopathy, lumbar region Problem 05/31/2020 12:00:00 AM EDT eCW1 ([facility]) Surgeries/Procedures Procedure Description Date Indications Data Source(s) OFFICE OUTPATIENT VISIT 25 MINUTES 06/16/2021 12:00:00 [facility] Imm: Flublok Quadrivalent 18 years & older 0.5mL IM Influenz a 06/08/2021 12:00:00 AM EDT eCW1 ([facility]) Injection, vitamin b-12 cyanocobalamin, up to 1000 mcg 05/23/2021 12:00:00 AM EDT eCW1 ([facility]) Inject/Drain Arthrocentesis Major Joint/Bursa/Ganglion Cyst 05/05/2021 12:00:00 AM EDT [facility] OFFICE OUTPATIENT VISIT 25 MINUTES 05/05/2021 12:00:00 AM [facility] OFFICE OUTPATIENT NEW 30 MINUTES 04/14/2021 12:00:00 A M EDT [facility] ([facility]) OFFICE OUTPATIENT NEW 45 MINUTES 04/14/2021 12:00:00 A M EDT [facility] Injection, vitamin b-12 cyanocobalamin, up to 1000 mcg 03/20/2021 12:00:00 AM EDT eCW1 ([facility]) Med: Vitamin B-12 1000mcg/1mL SC Cyanocobalamin 2020 12:00:00 AM EDT eCW1 ([facility]) OFFICE OUTPATIENT VISIT 15 MINUTES 01/17/2021 12:00:00 AM EDT [facility] ([facility]) ECG ROUTINE ECG W/LEAST 12 LDS W/I&R <td>POCT AMB EKG</td><td>Routine</td><td>01/11/2021 8:37 AM EDT</td><td> Paroxysmal atrial fibrillation</td><td> </td> 01/11/2021 08:37:00 AM EDT Paroxysmal atrial fibrillation [facility] Paroxysmal atrial fibrillation Injection, vitamin b-12 cyanocobalamin, up to 1000 mcg 11/17/2020 12:00:00 AM EDT eCW1 ([facility]) Colonoscopy Flexible Proximal To Splenic Flexure Diagnostic W/Or 10/25/2020 12:00:00 AM EST [facility] ([facility]) Pain Procedure Log 08/16/2020 12:00:00 AM EST eCW1 ([facility]) Injection, vitamin b-12 cyanocobalamin, up to 1000 mcg 08/15/2020 12:00:00 AM EST eCW1 ([facility]) Immunization: Flublok Quadrivalent (18 years & older) 0.5mL IM (Influenza) 07/20/2020 12:00:00 AM EST eCW1 ([facility]) Pain Procedure Log 07/19/2020 12:00:00 AM EST eCW1 ([facility]) Injection, vitamin b-12 cyanocobalamin, up to 1000 mcg 06/20/2020 12:00:00 AM EDT eCW1 ([facility]) Results ID Date Data Source [id number] 06/23/2021 09:09:24 AM EDT [facility]: Lacy GrantDOB: 1955Provider: [...] The patient was last seen by a [facility] provider on 04/10/21. At today's visit patient presents with their Self Implanted Devices The patient has the following implanted device(s): LOOP recorder. The patient does not have a glucose monitoring device. Patient is not currently working. 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.891) [...] Tablet; TAKE 1 TABLET TWICE DAILY NEEDED;Therapy: 14Oec9017 to (Evaluate:20Gdu0537) Requested for: 31May2021; LastRx:31May2021 Ordered Ferrous Sulfate 325 (65 Fe) MG Oral Tablet;Therapy: 10Jun2015 to Recorded Iron TABS;Therapy: (Recorded:75Tlk5546) to Recorded Multi-Vitamin TABS;Therapy: (Recorded:26Nov2011) to Recorded Nystatin 246456 UNIT/GM External Cream;Therapy: 08Sep2012 to Recorded oxyCODONE-Acetaminophen 5-325 MG Oral Tablet; TAKE 1 TO 2 tabs every 8 hours asneeded for pain MDD:3;Therapy: 02Apr2019 to (Evaluate:25Jun2021) Requested for: 26May2021; LastRx:26May2021 OrderedLD 04/10/21 Pantoprazole Sodium 40 MG Oral Tablet Delayed Release;Therapy: 24Sep2014 to Recorded Vitamin D (Ergocalciferol) 1.25 MG (15762 UT) Oral Capsule; TK 1 C PO [...] MDD:3LD 04/10/21 2. UDS-LAB WC / NF ([facility] Urine Drug Screen); [Do Not Release]; Specimen Source:Urine; Status:In Progress - Specimen/Data Collected; Done: [id number] 3. [facility] - Survey Evaluation Evaluation Status: Complete Done: [id number] Depression Screening - Patient's PHQ-9 score is: [...] months Follow Up Follow-up Status: Complete Done: [id number] Appointment for 15 or 30 minutes : Schedule 15 minute appointment Medication:. [place] DIRECTOR OF MATERIALS MANAGEMENT Information: DIRECTOR OF MATERIALS MANAGEMENT was consulted by my designee and I [...] sign and comply with all of the [facility] terms of a [...] follow up visit in 2 months. 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 Moderate. Dragon DisclaimerNYSWC [employer] Disclaimer: This document was dictated and electronically signed using [employer] Speaking software. 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.891) [...] 1 TABLET TWICE DAILY NEEDED;Therapy: 01Aug2020 to (Evaluate:38Evq7213) Requested for: 03Feb2021; LastRx:03Feb2021 Ordered Ferrous Sulfate 325 (65 Fe) MG Oral Tablet;Therapy: 10Jun2015 to Recorded Iron TABS;Therapy: (Recorded:69Vpw0708) to Recorded metFORMIN HCl - 500 MG Oral Tablet;Therapy: 14Sep2020 to Recorded Multi-Vitamin TABS;Therapy: (Recorded:26Nov2011) to Recorded Nystatin 765347 UNIT/GM External Cream;Therapy: 08Sep2012 to Recorded oxyCODONE-Acetaminophen 5-325 MG Oral Tablet; TAKE 1 TO 2 tabs every 8 hours asneeded for pain MDD:3;Therapy: 9 to (Evaluate:92Bmj0378) Requested for: 34Hyf6355; LastRx:35Sby1122 OrderedLD 04/10/21 Pantoprazole Sodium 40 MG Oral Tablet Delayed Release;Therapy: 24Sep2014 to Recorded Vitamin D (Ergocalciferol) 1.25 MG (74567 UT) Oral Capsule; TK 1 C PO WEEKLY;Therapy: 24Jul2010 to Recorded Xarelto 20 MG Oral Tablet;Therapy: 55Dih5586 to Recorded Past Medical History History of [...] of Wrist Surgery right VitalsVital Signs Recorded: 54Zem7420 08:53AM Height: 5 ft 3 inWeight: 247 [...] - Survey Evaluation Evaluation Status: Complete Done: [id number] Depression Screening - Patient's PHQ-9 score is: [...] Status: Hold For - Scheduling Requested for: 39Gur2525Kclytood Appointment for 15 or 30 minutes : Schedule 15 minute appointment Medication:. KAYCEE DIRECTOR OF MATERIALS MANAGEMENT Information: DIRECTOR OF MATERIALS MANAGEMENT was consulted by my designee and I [...] sign and comply with all of the [facility] terms of a [...] Weight loss was discussed and encouraged. 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 Moderate. Dragon DisclaimerNYSWC [employer] Disclaimer: This docum ent was dictated and electronically signed using [employer] Speaking software. A reasonable attempt at proof reading has been made to minimize errors. Please call with any questions. Signatures Electronically signed by : Tomsa Hastings NP; Apr 10 2021 9:09AM EST (Author) Electronically signed by : Jose Manuel Paz MD; Apr 10 2021 9:45AM EST Name Value Range Interpretation Code Description Data Yolanda rce(s) Supporting Document(s) ID Date Data Source [id number] 02/06/2021 09:26:58 AM EDT [facility] PC[facility]: Cat hy NedraB: [...] Chronic right shoulder pain (719.41,338.29) (M25.511,G89.29) 3. intermediate current use of opiate analgesic (V58.69) (Z79.891) [...] 1 TABLET TWICE DAILY NEEDED;Therapy: 01Aug2020 to (Evaluate:01Hrf4893) Requested for: 03Feb2021; LastRx:03Feb2021 Ordered Ferrous Sulfate 325 (65 Fe) MG Oral Tablet;Therapy: 10Jun2015 to Recorded Iron TABS;Therapy: (Recorded:13Qsc2947) to Recorded metFORMIN HCl - 500 MG Oral Tablet;Therapy: 14Sep2020 to Recorded Multi-Vitamin TABS;Therapy: (Recorded:26Nov2011) to Recorded Nystatin 532815 UNIT/GM External Cream;Therapy: 08Sep2012 to Recorded oxyCODONE-Acetaminophen 5-325 MG Oral Tablet; TAKE 1 TO 2 tabs every 8 hours asneeded for pain MDD:3;Therapy: 02Apr2019 to (Evaluate:02Efo5456) Requested for: 02Feb2021; LastRx:02Feb2021 OrderedLD 02/06/21 Pantoprazole Sodium 40 MG Oral Tablet Delayed Release;Therapy: 24Sep2014 to Recorded Vitamin D (Ergocalciferol) 1.25 MG (09997 UT) Oral Capsule; TK 1 C PO [...] - Survey Evaluation Evaluation Status: Complete Done: 85Tvh7519Ncxnht Depression Screening - Patient's PHQ-9 score is: [...] Status: Hold For - Scheduling Requested for: 53Cwl3082Hwexymnw Appointment for 15 or 30 minutes : Schedule 15 minute appointment Medication:. [place] DIRECTOR OF MATERIALS MANAGEMENT Information: DIRECTOR OF MATERIALS MANAGEMENT was consulted by my designee and I [...] sign and comply with all of the [facility] terms of a [...] a safe and effective treatment plan. 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 Moderate. Dragon DisclaimerNYSWC [employer] Disclaimer: This document was dictated and electronically signed using [employer] Speaking software. A reasonable attempt at proof reading has been made to minimize errors. Please call with any questions. Signatures Electronically signed by : Tomas Hastings NP; Feb 06 2021 9:03AM EST (Author) Electronically signed by : Harsh Cobb MD; Feb 06 2021 9:26AM EST Name Value Range Interpretation Code Description Data Yolanda rce(s) Supporting Document(s) ID Date Data Source [id number] 12/08/2020 10:39:08 AM EDT [facility] PC[facility]: Cat hy JuanitaDOB: [...] Chronic right shoulder pain (719.41,338.29) (M25.511,G89.29) 3. intermediate current use of opiate analgesic (V58.69) (Z79.891) [...] Tablet; TAKE 1 TABLET TWICE DAILY NEEDED;Therapy: 45Upn5126 to (Evaluate:31Aug2020) Requested for: 86Hoj0160; LastRx:73Orz7760 Ordered Ferrous Sulfate 325 (65 Fe) MG Oral Tablet;Therapy: 10Jun2015 to Recorded Iron TABS;Therapy: (Recorded:48Dte9709) to Recorded metFORMIN HCl - 500 MG Oral Tablet;Therapy: 14Sep2020 to Recorded Multi-Vitamin TABS;Therapy: (Recorded:26Nov2011) to Recorded Nystatin 910180 UNIT/GM External Cream;Therapy: 08Sep2012 to Recorded oxyCODONE-Acetaminophen 5-325 MG Oral Tablet; TAKE 1 TO 2 tabs every 8 hours asneeded for pain MDD:3;Therapy: 02Apr2019 to (Evaluate:18Dec2020) Requested for: 18Nov2020 RecordedLD 11/18/20 Pantoprazole Sodium 40 MG Oral Tablet Delayed Release;Therapy: 24Sep2014 to Recorded Vitamin D (Ergocalciferol) 1.25 MG (36352 UT) Oral Capsule; TK 1 C PO [...] (M47.814) Plan 1. UDS-LAB WC / NF ([facility] Urine Drug Screen); [Do Not Release]; Specimen Source:Urine; Status:In Progress - Specimen/Data Collected; Done: 18Nov2020 2. Follow-up in 2 months Follow Up Follow-up Status: Hold For - Scheduling Requested for: 80Qrt0137Hcgmsnau Appointment for 15 or 30 minutes : Schedule 15 minute appoint ment Medication:. [facility] DIRECTOR OF MATERIALS MANAGEMENT Information: DIRECTOR OF MATERIALS MANAGEMENT was consulted by my designee and I [...] sign and comply with all of the [facility] terms of a [...] follow up visit in 2 months. 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 Patient is on partial disability. Moderate. [employer] DisclaimerNYSWC [employer] Disclaimer: This document was dictated and electronically signed using [employer] software. A reasonable attempt at proof reading [...] rce(s) Supporting Document(s) ID Date Data Source [id number] 10/20/2020 12:00:00 PM EST [facility] Name Value Range Interpretation Code Description Data Yolanda rce(s) Supporting Document(s) SARS coronavirus 2 RNA Not Detected [facility] This lab was ordered by [facility] and reported by [facility]. 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.891) [...] Tablet; TAKE 1 TABLET TWICE DAILY NEEDED;Therapy: 64Cvn9490 to (Evaluate:31Aug2020) Requested for: 37Lye7611; LastRx:14Hxa8542 Ordered Ferrous Sulfate 325 (65 Fe) MG Oral Tablet;Therapy: 10Jun2015 to Recorded Iron TABS;Therapy: (Recorded:29Iht0492) to Recorded metFORMIN HCl - 500 MG Oral Tablet;Therapy: 14Sep2020 to Recorded Multi-Vitamin TABS;Therapy: (Recorded:26Nov2011) to Recorded Nystatin 579674 UNIT/GM External Cream;Therapy: 08Sep2012 to Recorded oxyCODONE-Acetaminophen 7.5-325 MG Oral Tablet; TAKE 1 TABLET EVERY 8 HOURSAS NEEDED FOR PAIN;Therapy: 43Cxg4804 to (Evaluate:54Apo3652) Requested for: 07Sep2020; LastRx:27Yer3897 ZjytcssLG82/7/2020 Pantoprazole Sodium 40 MG Oral Tablet Delayed Release;Therapy: 24Sep2014 to Recorded Vitamin D (Ergocalciferol) 1.25 MG (57183 UT) Oral Capsule; TK 1 C PO [...] Status: Hold For - Scheduling Requested for: 72Cuu1633Txdcwfrh Appointment for 15 or 30 minutes : Schedule 15 minute appointment Medication:. KINDRAS DIRECTOR OF MATERIALS MANAGEMENT Information: DIRECTOR OF MATERIALS MANAGEMENT was consulted by my designee and I [...] sign and comply with all of the [facility] terms of a [...] follow up visit in 2 months. 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 Moderate. Dragon DisclaimerNYSWC [employer] Disclaimer: This document was dictated and electronically signed using [employer] software. A reasonable attempt at proof [...] Source [id number] 08/16/2020 12:00:00 AM EST eCW1 ([facility]) Name Value Range Interpretation Code Description Data Yolanda rce(s) Supporting Document(s) Microalbumin/Creatinine [Mass Ratio] in Urine 207.0 CREATININE, URINE eCW1 ([facility]) Microalbumin/Creatinine [Ratio] in Urine 11.2 0.0-30.0 ANNY/CREAT RATIO eCW1 ([facility]) Albumin/Creatinine [Mass Ratio] in Urine 23.3 MALB URINE SIEMENS eCW1 ([facility]) ID Date Data Source TOTAL IRON BINDING CAPACIT 08/16/2020 12:00:00 AM EST eCW1 ( [facility]) Name Value Range Interpretation Code Description Data Yolanda rce(s) Supporting Document(s) 34 50-170 IRON (FE) eCW1 ([facility]) 386 250-450 TOTAL IRON BINDING CAPACI TY eCW1 ([facility]) 8.8 13.2-45.0 PERCENT SATURATION eCW1 ([facility]) ID Date Data Source FERRITIN 08/16/2020 12:00:00 AM EST eCW1 ([facility]) Name Value Range Interpretation Code Description Data Yolanda rce(s) Supporting Document(s) 17 8252 FERRITIN eCW1 ([facility]) ID Date Data Source [id number] 08/01/2020 08:31:16 PM [facility] PCName: Cat hy JuanitaDOB: [...] Chronic right shoulder pain (719.41,338.29) (M25.511,G89.29) 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.891) [...] Oral Tablet;Therapy: 10Jun2015 to Recorded Iron TABS;Therapy: (Recorded:04Mjw2898) to Recorded Metoprolol Tartrate 25 MG Oral Tablet;Therapy: (Recorded:34Lfe2222) to Recorded Multi- Vitamin TABS;Therapy: (Recorded:26Nov2011) to Recorded Nystatin 703263 UNIT/GM External Cream;Therapy: 08Sep2012 to Recorded oxyCODONE-Acetaminophen 10-325 MG Oral Tablet; 1 tqab po q 6-8 hours prnbreakthrough pain MDD:3;Therapy: 57Gvw3807 to (Evaluate:04Blv3715) Requested for: 12Jul2020; LastRx:12Jul2020 PpuoiesUQ01/7/2020 Pantoprazole Sodium 40 MG Oral Tablet Delayed Release;Therapy: 24Sep2014 to Recorded tiZANidine HCl - 4 MG Oral Tablet; TK ONE T PO TID PRN FOR SPASMS MDD:2;Therapy: 12Jul2011 to (Evaluate:89Lbj1591) Requested for: 04Feb2020; LastRx:04Feb2020 Ordered Vitamin D (Ergocalciferol) 1.25 MG (59075 UT) Oral Capsule; TK 1 C PO [...] - Single Never smoker VitalsVital Signs Recorded: 60Mdc4383 09:55AM Height: 5 ft 4 inWeight: 276 [...] Chronic right shoulder pain (719.41,338.29) (M25.511,G89.29) 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 Start: Cyclobenzaprine HCl - 10 MG Oral Tablet; TAKE 1 TABLET TWICE DAILY NEEDED 2. Changed: From oxyCODONE-Acetaminophen 10-325 MG Oral Tablet 1 tqab po q 6-8 hours prn breakthrough pain MDD:3 To oxyCODONE- Acetaminophen 7.5-325 MG Oral Tablet TAKE 1 TABLET EVERY 8 HOURS NEEDED FOR NGBMWI7808/01/2020 3. Follow-up in 1 month Follow Up Follow-up Status: Complete Done: 31Dlu6310Zbkxwnfx Appointment for 15 or 30 minutes : [...] for 3 to 4 weeks then off. DIRECTOR OF MATERIALS MANAGEMENT was consulted by my designee and I [...] ScribeNYSW Scribe Detail Form: Michelle Peña . [facility] Signatures Electronically signed by : Harsh Cobb MD; Aug 01 2020 8:31PM EST Name Value Range Interpretation Code Description Data Yolanda rce(s) Supporting Document(s) ID Date Data Source [id number] 07/29/2020 10:00:00 AM EST [facility] Name Value Range Interpretation Code Description Data Yolanda rce(s) Supporting Document(s) SARS coronavirus 2 RNA [facility] This lab was ordered by [facility] and reported by [facility]. ID Date Data Source [id number] 06/30/2020 12:00:00 PM EST [facility] Name Value Range Interpretation Code Description Data Yolanda rce(s) Supporting Document(s) SARS coronavirus 2 RNA [facility] This lab was ordered by [facility] and reported by [facility]. 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 Patient was asked and denies being seen by any Physicians since their last visit. The patient was last seen by a [facility] provider on 04/04/2020. 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.891) [...] Oral Tablet;Therapy: 10Jun2015 to Recorded Iron TABS;Therapy: (Recorded:09Rzn1119) to Recorded Metoprolol Tartrate 25 MG Oral Tablet;Therapy: (Recorded:78Flq3848) to Recorded Multi- Vitamin TABS;Therapy: (Recorded:26Nov2011) to Recorded Nystatin 085290 UNIT/GM External Cream;Therapy: 08Sep2012 to Recorded oxyCODONE-Acetaminophen 10-325 MG Oral Tablet; 1 tqab po q 6-8 hours prnbreakthrough pain MDD:3;Therapy: 40Kul6943 to (Evaluate:10Jun2020) Requested for: 93Got9420; LastRx:45Rzo6939 OrderedLD 06/10/2020 Pantoprazole Sodium 40 MG Oral Tablet Delayed Release;Therapy: 24Sep2014 to Recorded tiZANidine HCl - 4 MG Oral Tablet; TK ONE T PO TID PRN FOR SPASMS MDD:2;Therapy: 12Jul2011 to (Evaluate:52Hes3411) Requested for: 1 4Drr9302; LastRx:04Feb2020 Ordered Vitamin D (Ergocalciferol) 1.25 MG (33927 UT) Oral Capsule; TK 1 C PO [...] - Single Never smoker VitalsVital Signs Recorded: 11Vqz6815 08:12AM Height: 5 ft 3 inWeight: 273 [...] MDD:3LD 06/10/2020 2. UDS-LAB WC / NF ([facility] Urine Drug Screen); [Do Not Release]; Specimen Source:Urine; Status:In Progress - Specimen/Data Collected; Done: 03Zkm1772 3. Follow-up in 2 months Follow Up Follow-up Status: Hold For - Scheduling Requested for: 79Ory5631Ybpbzvtu Appointment for 15 or 30 minutes : Schedule 15 minute appointment Medication:. [facility] DIRECTOR OF MATERIALS MANAGEMENT Information: DIRECTOR OF MATERIALS MANAGEMENT was consulted by my designee and I [...] sign and comply with all of the [facility] terms of a [...] follow up visit in 2 months. 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 Patient is on partial disability. Moderate. [employer] DisclaimerNYSWC [employer] Disclaimer: This document was dictated and electronically signed using [employer] software. A reasonable attempt at proof reading has been made to minimize errors. Please call with any questions. Signatures Electronically signed by : Tomas Hastings NP; Jun 10 2020 8:27AM EST (Author) Electronically signed by : Harsh Cobb MD; Jun 10 2020 1:05PM EST Name Value Range Interpretation Code Description Data Yolanda rce(s) Supporting Document(s) ID Date Data Source [id number] 05/26/2020 10:00:00 AM EDT [facility] Name Value Range Interpretation Code Description Data Yolanda rce(s) Supporting Document(s) SARS coronavirus 2 RNA [facility] This lab was ordered by [facility] and reported by [facility]. ID Date Data Source [id number] 04/30/2020 09:00:00 AM EDT [facility] Name Value Range Interpretation Code Description Data Yolanda rce(s) Supporting Document(s) SARS coronavirus 2 RNA [facility] This lab was ordered by [facility] and reported by [facility]. Procedure Social History Code Duration Value Status Description Data Source(s ) Smoking 06/09/2021 12:00:00 AM EDT Former Smoker completed Former Smoker eCW1 ([facility]) Smoking 06/02/2021 12:00:00 AM EDT Former Smoker completed Former Smoker eCW1 ([facility]) Smoking 04/14/2021 12:00:00 AM EDT Non Smoker completed Non Smoke r MEDENT ([facility]) Alcohol intake 01/11/2021 12:00:00 AM EDT Ex-drinker (finding) comp leted Ex- drinker (finding) [facility] Smoking 01/04/2021 12:00:00 AM EDT Former Smoker completed Former Smoker eCW1 ([facility]) Smoking 01/04/2021 12:00:00 AM EDT Former Smoker completed Former Smoker eCW1 ([facility]) Smoking 01/04/2021 12:00:00 AM EDT Former Smoker completed Former Smoker eCW1 ([facility]) Smoking 01/04/2021 12:00:00 AM EDT Former Smoker completed Former Smoker eCW1 ([facility]) Smoking 01/04/2021 12:00:00 AM EDT Former Smoker completed Former Smoker eCW1 ([facility]) Smoking 01/04/2021 12:00:00 AM EDT Former Smoker completed Former Smoker eCW1 ([facility]) Smoking 01/04/2021 12:00:00 AM EDT Former Smoker completed Former Smoker eCW1 ([facility]) Smoking 01/04/2021 12:00:00 AM EDT Former Smoker completed Former Smoker eCW1 ([facility]) Smoking 01/04/2021 12:00:00 AM EDT Former Smoker completed Former Smoker eCW1 ([facility]) Smoking 01/04/2021 12:00:00 AM EDT Former Smoker completed Former Smoker eCW1 ([facility]) Smoking 01/04/2021 12:00:00 AM EDT Former Smoker completed Former Smoker eCW1 ([facility]) Smoking 12/15/2020 12:00:00 AM EDT Former Smoker completed Former Smoker eCW1 ([facility]) Smoking 10/07/2020 12:00:00 AM EST Former Smoker completed Former Smoker eCW1 ([facility]) Smoking 10/07/2020 12:00:00 AM EST Former Smoker completed Former Smoker eCW1 ([facility]) Smoking 10/07/2020 12:00:00 AM EST Former Smoker completed Former Smoker eCW1 ([facility]) Smoking 10/07/2020 12:00:00 AM EST Former Smoker completed Former Smoker eCW1 ([facility]) Smoking 10/07/2020 12:00:00 AM EST Former Smoker completed Former Smoker eCW1 ([facility]) Smoking 10/07/2020 12:00:00 AM EST Former Smoker completed Former Smoker eCW1 ([facility]) Smoking 08/16/2020 12:00:00 AM EST Former Smoker completed Former Smoker eCW1 ([facility]) Smoking 08/16/2020 12:00:00 AM EST Former Smoker completed Former Smoker eCW1 ([facility]) Smoking 08/16/2020 12:00:00 AM EST Former Smoker completed Former Smoker eCW1 ([facility]) Smoking 08/16/2020 12:00:00 AM EST Former Smoker completed Former Smoker eCW1 ([facility]) Smoking 08/16/2020 12:00:00 AM EST Former Smoker completed Former Smoker eCW1 ([facility]) Smoking 08/16/2020 12:00:00 AM EST Former Smoker completed Former Smoker eCW1 ([facility]) Smoking 08/16/2020 12:00:00 AM EST Former Smoker completed Former Smoker eCW1 ([facility]) Smoking 08/16/2020 12:00:00 AM EST Former Smoker completed Former Smoker eCW1 ([facility]) Smoking 08/15/2020 12:00:00 AM EST Former Smoker completed Former Smoker eCW1 ([facility]) Smoking 08/03/2020 12:00:00 AM EST Former Smoker completed Former Smoker eCW1 ([facility]) Smoking 08/03/2020 12:00:00 AM EST Former Smoker completed Former Smoker eCW1 ([facility]) Smoking 07/19/2020 12:00:00 AM EST Former Smoker completed Former Smoker eCW1 ([facility]) Smoking 07/19/2020 12:00:00 AM EST Former Smoker completed Former Smoker eCW1 ([facility]) Smoking 07/19/2020 12:00:00 AM EST Former Smoker completed Former Smoker eCW1 ([facility]) Smoking 07/05/2020 12:00:00 AM EST Former Smoker completed Former Smoker eCW1 ([facility]) Smoking 07/05/2020 12:00:00 AM EST Former Smoker completed Former Smoker eCW1 ([facility]) Smoking 07/04/2020 12:00:00 AM EST Former Smoker completed Former Smoker eCW1 ([facility]) Smoking 06/14/2020 12:00:00 AM EDT Former Smoker completed Former Smoker eCW1 ([facility]) Smoking 06/14/2020 12:00:00 AM EDT Former Smoker completed Former Smoker eCW1 ([facility]) Smoking 06/14/2020 12:00:00 AM EDT Former Smoker completed Former Smoker eCW1 ([facility]) Vital Signs ID Date Data Source UNK Name Value Range Interpretation Code Description Data Source(s) Body weight 248 [lb_av] 248 [lb_av] eCW1 ([facility]) Body weight 112.49 kg 112.49 kg eCW1 ([facility]) Body height 63 [in_i] 63 [in_i] eCW1 ([facility]) Body mass index (BMI) [Ratio] 43.93 kg/m2 43.93 kg/m2 eCW1 ([facility]) Heart rate 89 /min 89 /min eCW1 ([facility]) Respiratory rate 20 /min 20 /min eCW1 ([facility]) Body temperature 96.0 [degF] 96.0 [degF] eCW1 ( [facility]) Systolic blood pressure 130 mm[Hg] 130 mm[Hg] e CW1 ([facility]) Diastolic blood pressure 80 mm[Hg] 80 mm[Hg] eCW1 ([facility]) Body weight 245.2 [lb_av] 245.2 [lb_av] [facility] Body weight 111.22 kg 111.22 kg eCW1 ([facility]) Body height 63 [in_i] 63 [in_i] eCW1 ([facility]) Body mass index (BMI) [Ratio] 43.43 kg/m2 43.43 kg/m2 eCW1 ([facility]) Heart rate 74 /min 74 /min eCW1 ([facility]) Respiratory rate 18 /min 18 /min eCW1 ([facility]) Body temperature 97.0 [degF] 97.0 [degF] eCW1 ( [facility]) Systolic blood pressure 148 mm[Hg] 148 mm[Hg] e CW1 ([facility]) Diastolic blood pressure 61 mm[Hg] 61 mm[Hg] eCW1 ([facility]) Body temperature 98.0 [degF] 98.0 [degF] MEDENT ([facility] ) Oxygen saturation in Arterial blood by Pulse oximetry 97 % 97 % MEDENT ([facility] Body temperature 97.8 [degF] 97.8 [degF] MEDENT ([facility] ) Body height 63 [in_i] 63 [in_i] MEDENT ([facility] 5'3" Body weight 262.00 [lb_av] 262.00 [lb_av] MEDEN T ([facility]) Body mass index (BMI) [Ratio] 46.4 kg/m2 46.4 k g/m2 [facility] ([facility]) Kevin body weight 115 [lb_av] 115 [lb_av] MEDEN T ([facility]) Body weight 118.843 kg 118.843 kg [facility] ([facility]) Body surface area Derived from formula 2.17 m2 2.17 m2 [facility] ([facility]) Body weight 118.843 kg 118.843 kg [facility] ([facility]) Systolic blood pressure 130 mm[Hg] 130 mm[Hg] [facility] ([facility]) Diastolic blood pressure 82 mm[Hg] 82 mm[Hg] [facility] ([facility]) Heart rate 86 /min 86 /min [facility] ([facility]) Oxygen saturation in Arterial blood by Pulse oximetry 97 % 97 % [facility] ([facility]) Body temperature 97.8 [degF] 97.8 [degF] [facility] ([facility]) Body height 63 [in_i] 63 [in_i] [facility] ([facility]) 5'3" Body weight 262.00 [lb_av] 262.00 [lb_av] MEDEN T ([facility]) Body mass index (BMI) [Ratio] 46.4 kg/m2 46.4 k g/m2 [facility] ([facility]) Kevin body weight 115 [lb_av] 115 [lb_av] MEDEN T ([facility]) Body surface area Derived from formula 2.17 m2 2.17 m2 [facility] ([facility]) Systolic blood pressure 134 mm[Hg] 134 mm[Hg] [facility] Diastolic blood pressure 78 mm[Hg] 78 mm[Hg] [facility] Heart rate 69 /min 69 /min [facility] Body height 160 cm 160 cm [facility] Body weight 118.389 kg 118.389 kg [facility] Body mass index (BMI) [Ratio] 46.23 kg/m2 46.23 kg/m2 [facility] Oxygen saturation in Arterial blood by Pulse oximetry 97 % 97 % [facility] Body weight 262.8 [lb_av] 262.8 [lb_av] [facility]CW[facility] Body height 63 [in_i] 63 [in_i] eCW1 ([facility]) Body mass index (BMI) [Ratio] 46.55 kg/m2 46.55 kg/m2 eCW1 ([facility]) Heart rate 78 /min 78 /min eCW1 ([facility]) Respiratory rate 18 /min 18 /min eCW1 ([facility]) Body temperature 98.3 [degF] 98.3 [degF] eCW1 ( [facility]) Systolic blood pressure 159 mm[Hg] 159 mm[Hg] e CW1 ([facility]) Diastolic blood pressure 71 mm[Hg] 71 mm[Hg] eCW1 ([facility]) Body weight 267.4 [lb_av] 267.4 [lb_av] [facility]CW[facility] Body height 63 [in_i] 63 [in_i] eCW1 ([facility]) Body mass index (BMI) [Ratio] 47.36 kg/m2 47.36 kg/m2 eCW1 ([facility]) Heart rate 87 /min 87 /min eCW1 ([facility]) Respiratory rate 20 /min 20 /min eCW1 ([facility]) Body temperature 97.9 [degF] 97.9 [degF] eCW1 ( [facility]) Systolic blood pressure 132 mm[Hg] 132 mm[Hg] e CW1 ([facility]) Diastolic blood pressure 70 mm[Hg] 70 mm[Hg] eCW1 ([facility]) Body weight 276.6 [lb_av] 276.6 [lb_av] [facility] Body height 63 [in_i] 63 [in_i] eCW1 ([facility]) Body mass index (BMI) [Ratio] 48.99 kg/m2 48.99 kg/m2 eCW1 ([facility]) Heart rate 83 /min 83 /min eCW1 ([facility]) Respiratory rate 18 /min 18 /min eCW1 ([facility]) Body temperature 97.3 [degF] 97.3 [degF] eCW1 ( [facility]) Systolic blood pressure 144 mm[Hg] 144 mm[Hg] e CW1 ([facility]) Diastolic blood pressure 80 mm[Hg] 80 mm[Hg] eCW1 ([facility]) Body height 63 [in_i] 63 [in_i] MEDENT ([facility], ) 5'3" Body weight 274.00 [lb_av] 274.00 [lb_av] MEDEN T ([facility]) Body mass index (BMI) [Ratio] 48.5 kg/m2 48.5 k g/m2 [facility] ([facility]) Kevin body weight 115 [lb_av] 115 [lb_av] MEDEN T ([facility]) Body weight 124.286 kg 124.286 kg [facility] ([facility]) Body surface area Derived from formula 2.21 m2 2.21 m2 [facility] ([facility]) Systolic blood pressure 144 mm[Hg] 144 mm[Hg] M EDENT ([facility]) Diastolic blood pressure 80 mm[Hg] 80 mm[Hg] MEDENT ([facility]) Body height 63 [in_i] 63 [in_i] MEDENT ([facility]) 5'3" Body weight 274.00 [lb_av] 274.00 [lb_av] MEDEN T ([facility]) Body mass index (BMI) [Ratio] 48.5 kg/m2 48.5 k g/m2 [facility] ([facility]) Kevin body weight 115 [lb_av] 115 [lb_av] MEDEN T ([facility]) Body weight 124.286 kg 124.286 kg [facility] ([facility]) Body surface area Derived from formula 2.21 m2 2.21 m2 [facility] ([facility]) Body weight 274.2 [lb_av] 274.2 [lb_av] [facility] Body height 63 [in_i] 63 [in_i] eCW1 ([facility]) Body mass index (BMI) [Ratio] 48.57 kg/m2 48.57 kg/m2 eCW1 ([facility]) Heart rate 84 /min 84 /min eCW1 ([facility]) Respiratory rate 20 /min 20 /min eCW1 ([facility]) Body temperature 98.2 [degF] 98.2 [degF] eCW1 ( [facility]) Systolic blood pressure 184 mm[Hg] 184 mm[Hg] e CW1 ([facility]) Diastolic blood pressure 77 mm[Hg] 77 mm[Hg] eCW1 ([facility]) Body weight 271.2 [lb_av] 271.2 [lb_av] [facility]CW[facility] Body height 63 [in_i] 63 [in_i] eCW1 ([facility]) Body mass index (BMI) [Ratio] 48.04 kg/m2 48.04 kg/m2 eCW1 ([facility]) Heart rate 97 /min 97 /min eCW1 ([facility]) Respiratory rate 20 /min 20 /min eCW1 ([facility]) Body temperature 98.1 [degF] 98.1 [degF] eCW1 ( [facility]) Systolic blood pressure 130 mm[Hg] 130 mm[Hg] e CW1 ([facility]) Diastolic blood pressure 82 mm[Hg] 82 mm[Hg] eCW1 ([facility]) Body weight 277.6 [lb_av] 277.6 [lb_av] [facility]CW[facility] Body height 63 [in_i] 63 [in_i] eCW1 ([facility]) Body mass index (BMI) [Ratio] 49.17 kg/m2 49.17 kg/m2 eCW1 ([facility]) Heart rate 95 /min 95 /min eCW1 ([facility]) Respiratory rate 18 /min 18 /min eCW1 ([facility]) Body temperature 98.1 [degF] 98.1 [degF] eCW1 ( [facility]) Systolic blood pressure 140 mm[Hg] 140 mm[Hg] e CW1 ([facility]) Diastolic blood pressure 60 mm[Hg] 60 mm[Hg] eCW1 ([facility]) Body weight 275.6 [lb_av] 275.6 [lb_av] [facility]CW[facility] Body height 63 [in_i] 63 [in_i] eCW1 ([facility]) Body mass index (BMI) [Ratio] 48.82 kg/m2 48.82 kg/m2 eCW1 ([facility]) Heart rate 86 /min 86 /min eCW1 ([facility]) Respiratory rate 18 /min 18 /min eCW1 ([facility]) Body temperature 96.1 [degF] 96.1 [degF] eCW1 ( [facility]) Systolic blood pressure 187 mm[Hg] 187 mm[Hg] e CW1 ([facility]) Diastolic blood pressure 79 mm[Hg] 79 mm[Hg] eCW1 ([facility]) Body weight 277.2 [lb_av] 277.2 [lb_av] [facility]CW[facility] Body height 63 [in_i] 63 [in_i] eCW1 ([facility]) Body mass index (BMI) [Ratio] 49.10 kg/m2 49.10 kg/m2 W1 ([facility]) Heart rate 67 /min 67 /min eCW1 ([facility]) Respiratory rate 18 /min 18 /min eCW1 ([facility]) Body temperature 96.6 [degF] 96.6 [degF] eCW1 ( [facility]) Systolic blood pressure 164 mm[Hg] 164 mm[Hg] e CW1 ([facility]) Diastolic blood pressure 70 mm[Hg] 70 mm[Hg] eCW1 ([facility]) Body weight 272.6 [lb_av] 272.6 [lb_av] [facility]CW[facility] Body height 63 [in_i] 63 [in_i] eCW1 ([facility]) Body mass index (BMI) [Ratio] 48.28 kg/m2 48.28 kg/m2 eCW1 ([facility]) Heart rate 83 /min 83 /min eCW1 ([facility]) Respiratory rate 18 /min 18 /min eCW1 ([facility]) Body temperature 97.5 [degF] 97.5 [degF] eCW1 ( [facility]) Systolic blood pressure 163 mm[Hg] 163 mm[Hg] e CW1 ([facility]) Diastolic blood pressure 69 mm[Hg] 69 mm[Hg] eCW1 ([facility]) Body weight 272.6 [lb_av] 272.6 [lb_av] [facility]CW[facility] Body height 63 [in_i] 63 [in_i] eCW1 ([facility]) Body mass index (BMI) [Ratio] 48.28 kg/m2 48.28 kg/m2 eCW1 ([facility]) Heart rate 76 /min 76 /min eCW1 ([facility]) Respiratory rate 18 /min 18 /min eCW1 ([facility]) Body temperature 96.5 [degF] 96.5 [degF] eCW1 ( [facility]) Systolic blood pressure 174 mm[Hg] 174 mm[Hg] e CW1 ([facility]) Diastolic blood pressure 77 mm[Hg] 77 mm[Hg] eCW1 ([facility]) Patient Treatment Plan of Care Planned Activity Planned Date Details Description Data Source (s) December - 02/08/2021 12:00:00 AM EDT e CW1 ([facility]) May Have - 02/08/2021 12:00:00 AM EDT e CW1 ([facility]) May Have - 02/08/2021 12:00:00 AM EDT e CW1 ([facility]) May Have - 02/08/2021 12:00:00 AM EDT e CW1 ([facility]) May Have - 02/08/2021 12:00:00 AM EDT e CW1 ([facility]) May Have - 02/08/2021 12:00:00 AM EDT e CW1 ([facility]) May Have - 02/08/2021 12:00:00 AM EDT e CW1 ([facility]) May Have - 02/08/2021 12:00:00 AM EDT e CW1 ([facility]) May Have - 02/08/2021 12:00:00 AM EDT e CW1 ([facility]) May Have - 02/08/2021 12:00:00 AM EDT e CW1 ([facility]) May Have - 02/08/2021 12:00:00 AM EDT e CW1 ([facility]) May Have - 02/08/2021 12:00:00 AM EDT e CW1 ([facility]) May Have - 02/08/2021 12:00:00 AM EDT e CW1 ([facility]) May Have - 02/08/2021 12:00:00 AM EDT e CW1 ([facility]) Nystatin - 11/17/2020 12:00:00 AM EDT e CW1 ([facility]) Nystatin - 11/17/2020 12:00:00 AM EDT e CW1 ([facility]) Nystatin - 11/17/2020 12:00:00 AM EDT e CW1 ([facility]) Nystatin - 11/17/2020 12:00:00 AM EDT e CW1 ([facility]) rivaroxaban 20 MG Oral Tablet 09/14/2020 12:00:00 AM EST [facility] 24 HR Metformin hydrochloride 500 MG Extended Release Oral Tablet 09/02/2020 12:00:00 AM EST eCW1 (formerly [facility]) 24 HR Metformin hydrochloride 500 MG Extended Release Oral Tablet 09/02/2020 12:00:00 AM EST eCW1 (formerly [facility]) 24 HR Metformin hydrochloride 500 MG Extended Release Oral Tablet 09/02/2020 12:00:00 AM EST eCW1 (formerly [facility]) 24 HR Metformin hydrochloride 500 MG Extended Release Oral Tablet 09/02/2020 12:00:00 AM EST eCW1 ([facility]) 24 HR Metformin hydrochloride 500 MG Extended Release Oral Tablet 09/02/2020 12:00:00 AM EST eCW1 (formerly [facility]) 24 HR Metformin hydrochloride 500 MG Extended Release Oral Tablet 09/02/2020 12:00:00 AM EST eCW1 (formerly [facility]) 24 HR Metformin hydrochloride 500 MG Extended Release Oral Tablet 09/02/2020 12:00:00 AM EST eCW1 ([facility]) 24 HR Metformin hydrochloride 500 MG Extended Release Oral Tablet 09/02/2020 12:00:00 AM EST eCW1 ([facility]) 24 HR Metformin hydrochloride 500 MG Extended Release Oral Tablet 09/02/2020 12:00:00 AM EST eCW1 ([facility]) 24 HR Metformin hydrochloride 500 MG Extended Release Oral Tablet 09/02/2020 12:00:00 AM EST eCW1 (formerly [facility]) Accu-Chek Regina 1 08/16/2020 12:00:00 AM EST eCW1 ([facility]) Blood Glucose Test 1 08/16/2020 12:00:00 AM EST eCW1 ([facility]) Accu-Chek Soft Touch Lancets 1 08/16/2020 12:00:00 AM EST eCW1 ([facility]) Accu-Chek Reg[place] 1 08/16/2020 12:00:00 AM EST eCW1 ([facility]) Blood Glucose Test 1 08/16/2020 12:00:00 AM EST eCW1 ([facility]) Accu-Chek Soft Touch Lancets 1 08/16/2020 12:00:00 AM EST eCW1 ([facility]) Accu-Chek Regina 1 08/16/2020 12:00:00 AM EST eCW1 ([facility]) Blood Glucose Test 1 08/16/2020 12:00:00 AM EST eCW1 ([facility]) Accu-Chek Soft Touch Lancets 1 08/16/2020 12:00:00 AM EST eCW1 ([facility]) Blood Glucose Test 1 08/16/2020 12:00:00 AM EST eCW1 ([facility]) Accu-Chek Regina 1 08/16/2020 12:00:00 AM EST eCW1 ([facility]) Accu-Chek Soft Touch Lancets 1 08/16/2020 12:00:00 AM EST eCW1 ([facility]) Blood Glucose Test 1 08/16/2020 12:00:00 AM EST eCW1 ([facility]) Accu-Chek Regina 1 08/16/2020 12:00:00 AM EST eCW1 ([facility]) Accu-Chek Soft Touch Lancets 1 08/16/2020 12:00:00 AM EST eCW1 ([facility]) Blood Glucose Test 1 08/16/2020 12:00:00 AM EST eCW1 ([facility]) Accu-Chek Regina 1 08/16/2020 12:00:00 AM EST eCW1 ([facility]) Blood Glucose Test 1 08/16/2020 12:00:00 AM EST eCW1 ([facility]) Accu-Chek Regina 1 08/16/2020 12:00:00 AM EST eCW1 ([facility]) Blood Glucose Test 1 08/16/2020 12:00:00 AM EST eCW1 ([facility]) Accu-Chek Soft Touch Lancets 1 08/16/2020 12:00:00 AM EST eCW1 ([facility]) Accu-Chek Reg[place] 1 08/16/2020 12:00:00 AM EST eCW1 ([facility]) Accu-Chek Soft Touch Lancets 1 08/16/2020 12:00:00 AM EST eCW1 ([facility]) FreeStyle Precision Adam Test - 08/15/2020 12:00:00 AM EST eCW1 ([facility]) Albuterol 0.83 MG/ML Inhalant Solution 08/20/2019 12:00:00 AM EST [facility] benzonatate 200 MG Oral Capsule 08/20/2019 12:00:00 AM EST [facility] Metoprolol Tartrate 25 MG Oral Tablet [facility] tizanidine 4 MG Oral Tablet [facility]
--- NOTE | 2021-06-27 13:21 | REP ---
INDICATION: left hand pain; s/p fall COMPARISON: None. TECHNIQUE: Four views left hand. FINDINGS: A small linear calcification is seen adjacent to the base of the 5th metacarpal which could possibly represent an avulsion fracture, of indeterminate age. No other acute fracture is seen. There is spurring of the distal radius. There is widening of the scapholunate interval compatible with a scapholunate ligament tear. Mild degenerative changes are seen at the base of the thumb. IMPRESSION: Small linear calcification adjacent to the base of the 5th metacarpal may represent avulsion fracture, of indeterminate age. Suspect scapholunate ligament tear. <Electronically signed by Samson Pinzon > 06/27/21 [id number]
[2021-06-27] MEDS ORDERED: ACETAMINOPHEN TAB 650MG DOSE (2X325MG) PO ONE (14:35)
--- NOTE | 2021-06-27 15:02 | REP ---
INDICATION: clinched fist view per Dr Lechuga request. COMPARISON: Left hand series 06/27/2021 TECHNIQUE: Clenched fist neutral and ulnar deviation views. FINDINGS: There is a curvilinear ossific density at the base of the 5th metacarpal which could be an avulsion fragment, new versus old. It is along the radial margin of the proximal head and is not present on the wrist series of 10/01/2012. The scapholunate joint does appear to widened marginally on the ulnar deviation view with a clenched fist. This further raises suspicion for scapholunate ligament injury. Degenerative change with some small ossific density noted at the 1st CMC joint. IMPRESSION: 1. Avulsion fragment at the proximal head of the 5th metacarpal adjacent to the proximal head of the 4th metacarpal. Not present on 2013 wrist series. It could still be acute or old. 2. Slight widening of the scapholunate joint which increases somewhat with low ulnar deviation of the clenched fist. <Electronically signed by Mitchell Vail > 06/27/21 [id number]
--- NOTE | 2021-06-27 16:16 | CR.PDOC ---
General Date of Consultation: Jun 27, 2021 Consultation REASON FOR CONSULTATION/CHIEF COMPLAINT: left hand and wrist injury secondary to fall. Called by ED re: possible SL injury. HISTORY OF PRESENT ILLNESS: Fell earlier today going to PT for Left RCT. Left foosh with pain to 5th digit and palm. Had eval for head injury as she hit her chin during the fall. ALLERGIES: Please see below. HOME MEDICATIONS: Please see below. PAST MEDICAL HISTORY: non contributory PAST SURGICAL HISTORY: non contributory FAMILY HISTORY: non contributory SOCIAL HISTORY: lives at home with 13 yo granddaughter. REVIEW OF SYSTEMS: pain primarily in 5th digit with motion and palm/wrist PHYSICAL EXAMINATION: VITAL SIGNS: Please see below. GENERAL APPEARANCE: A&O; NAD CARDIOVASCULAR: Palpable radial pulse and cap refill less than 3 seconds EXTREMITIES: Bruising to left palmar aspect. Tender wrist on compression and in snuff box region. NEUROLOGICAL: grossly intact to light sensation med, rad, uln n distributions and intact grossly to motor to ain, med, rad, uln n distributions. Painful, but full ROM to 5th digit. LABORATORY DATA: Please see below. Xray imaging shows small leona avulsion to 4th or 5th MC. Possible SL widening. This appeared to increase slightly as per radiology on clenched fist views. ASSESSMENT/PLAN: 1. Possible SL tear. Patient placed in thumb spica dorsal and volar plaster splint with stockinette, webril and plaster and tensor wrap. Grossly NVI post splinting. 2. Pt will follow up in the office for repeat evaluation and possible referral for SL widening to hand and wrist specialist. Vital Signs/I&O Vital Signs Date Time Temp Pulse Resp B/P (MAP) Pulse Ox O2 Delivery O2 Flow Rate FiO2 06/27/21 12:28 98.8 75 18 165/72 (103) 97 Room Air Allergies Coded Allergies: codeine (Verified Allergy, Severe, ANAPHYLAXIS, 10/18/20) TOLERATES MORPHINE amitriptyline (Verified Allergy, Intermediate, forgetful, 06/27/21) gabapentin (Verified Allergy, Intermediate, agitation, 06/27/21) Penicillins (Verified Allergy, Unknown, HIVES, 10/18/20) Sulfa (Sulfonamide Antibiotics) (Verified Allergy, Unknown, HIVES, 10/18/20) pentazocine (Verified Allergy, Unknown, HIVES, 10/18/20) procaine (Verified Allergy, Unknown, HIVES, 10/18/20) sulfamethoxazole (Verified Allergy, Unknown, HIVES, 10/18/20) tetracycline (Verified Allergy, Unknown, HIVES, 10/18/20) trimethoprim (Verified Allergy, Unknown, HIVES, 10/18/20) Home Medications Scheduled Acetaminophen (Tylenol Arthritis) 650 Mg Tab, 1,950 MG PO Q8H, (Reported) Calcium/Vitamin D (Oyster Shell 250 mg-Vit D 125) 250 Mg Tab, 500 MG PO BID, (Reported) Cholecalciferol (Vitamin D3) (Vitamin D3) 1,000 Unit Tablet, 5,000 UNITS PO TID, (Reported) Ferrous Sulfate (Ferrous Sulfate) 325 Mg Tab, 325 MG PO BID, (Reported) Multivitamin (Multivitamins) 1 Each Tablet, 1 TAB PO DAILY, (Reported) Nystatin (Nystatin) 15 Gm Oint...g., 15 MG TOP TID, (Reported) Pantoprazole Sodium (Protonix) 40 Mg Tom, 40 MG PO BID, (Reported) Rivaroxaban (Xarelto) 20 Mg Tab, 20 MG PO DAILY, (Reported) Sucralfate (Sucralfate) 1 Gm Tab, 1 GM PO AC, (Reported) Scheduled PRN Albuterol Sulfate (Albuterol Sulfate Hfa) 8.5 Gm Hfa.aer.ad, 2 PUFFS INH QIDP PRN for SHORTNESS OF BREATH, (Reported) Cyclobenzaprine HCl (Cyclobenzaprine HCl) 10 Mg Tablet, 10 MG PO BIDP PRN for MUSCLE SPASMS, (Reported) Oxycodone Hcl (Oxycodone HCl) 15 Mg Tab, 7.5 MG PO Q6HP PRN for PAIN, (Reported) KRISTEN CANCHOLA MD Jun 27, 2021 16:16
[2021-06-27 16:33] VITALS: BP 139/83
== END 2021-06-27 16:38 | disposition home or self-care (01) ==
LOC: M ED 12:01
DX: S09.90XA Unspecified injury of head, initial encounter (principal); S20.212A Contusion of left front wall of thorax, initial encounter; S63.392A Traumatic rupture of other ligament of left wrist, initial encounter; S62.307A Unspecified fracture of fifth metacarpal bone, left hand, initial encounter for closed fracture; W01.0XXA Fall on same level from slipping, tripping and stumbling without subsequent striking against object, initial encounter; Y92.9 Unspecified place or not applicable; Y93.9 Activity, unspecified; Y99.9 Unspecified external cause status; I48.91 Unspecified atrial fibrillation; Z88.0 Allergy status to penicillin; Z88.1 Allergy status to other antibiotic agents; Z88.2 Allergy status to sulfonamides; Z88.8 Allergy status to other drugs, medicaments and biological substances; Z79.01 Long term (current) use of anticoagulants; Z79.899 Other long term (current) drug therapy

== ENCOUNTER 2021-07-05 10:39 | Outpatient (CLI) | payer MEDICARE, MEDICAID ==
[~2021-07-05] VITALS: Ht 160 cm; Wt 112.7 kg
[~2021-07-05 10:39] MED LIST changes: +ZOLEDRONIC ACID 5 MG in IV 1 EA IV ONE
[2021-07-05 10:45] VITALS: BP 169/80
[2021-07-05] MEDS ORDERED: ZOLEDRONIC ACID 5 MG in IV 1 EA IV ONE (11:00)
[2021-07-05] MEDS ORDERED: OXYC1TAB23 PO (11:18)
[2021-07-05 11:55] VITALS: BP 145/72
== END 2021-07-05 11:55 | disposition home or self-care (01) ==
LOC: M INFU 10:39
PROVIDERS: ATTEND Family Medicine
DX: M85.80 Other specified disorders of bone density and structure, unspecified site (principal); Z88.0 Allergy status to penicillin; Z88.1 Allergy status to other antibiotic agents; Z88.2 Allergy status to sulfonamides; Z88.8 Allergy status to other drugs, medicaments and biological substances
CPT/HCPCS: 96365; J3489

== ENCOUNTER → 2021-07-28 | Outpatient (CLI) | payer MEDICARE, MEDICAID ==
[~2021-07-28] MED LIST changes: +OXYC1TAB23 PO; -ZOLEDRONIC ACID 5 MG in IV 1 EA IV ONE
--- NOTE | 2021-07-28 15:51 | REP ---
INDICATION: LT WRIST TRAUMATIC RUPTURE OF LIGAMENT. COMPARISON: None. TECHNIQUE: 3T multiplanar MRI imaging of the 5th digit of the left hand was obtained using various sequences. FINDINGS: The examination is limited by positioning and motion artifact. There is no evidence of a joint effusion. There is T1 and T2 prolongation seen involving the base of the 5th metacarpal laterally. There is a focus of T1 and T2 prolongation seen involving the mid-diaphysis of the 5th metacarpal. No gross abnormalities identified involving the imaged flexor and extensor tendons. IMPRESSION: There is evidence of edema in the base of the 5th metacarpal laterally likely secondary to a healing fracture. An acute fracture was identified on the plain film examination of 06/27/2021. This limited exam shows no concomitant soft tissue abnormality. <Electronically signed by Jayson Shirley > 07/28/21 [id number]
--- NOTE | 2021-07-28 16:26 | REP ---
INDICATION: LT WRIST TRAUMATIC RUPTURE OF LIGAMENT. COMPARISON: Radiographs 06/27/2021. TECHNIQUE: Multiple sequences obtained in the axial, coronal and sagittal planes. FINDINGS: Triangular fibrocartilage complex:No evidence of tear. Scapholunate and lunatotriquetral ligaments: There is a tear of the scapholunate ligament. The lunatotriquetral ligament appears intact. Flexor and extensor tendons: Intact. No tenosynovitis. Carpal tunnel region: No significant abnormality. No abnormal signal in median nerve. No ganglion cyst is seen. Joint fluid: There is a mild effusion in the medial carpal region. Distal radioulnar joint: No significant fluid present. There is 2 mm of ulnar minus variance. Bone marrow:There is edema in the proximal 5th metacarpal at the site of the previously noted fracture. IMPRESSION: Scapholunate ligament tear. There is edema in the proximal 5th metacarpal at the site of the previously noted fracture, with a mild effusion just proximal to that in the carpal region. <Electronically signed by Samson Pinzon > 07/28/21 [id number]
== END ==
LOC: M PLAIMG 14:12
PROVIDERS: ATTEND Orthopaedic Surgery Adult Reconstructive Orthopaedic Surgery
DX: S63.692A Other sprain of right middle finger, initial encounter (principal); X58.XXXA Exposure to other specified factors, initial encounter; Y92.9 Unspecified place or not applicable

== ENCOUNTER → 2021-09-06 | Outpatient (CLI) | payer MEDICARE, MEDICAID | LOC: M PAIN 09:30 | PROVIDERS: ATTEND Anesthesiology | DX: M47.816 Spondylosis without myelopathy or radiculopathy, lumbar region (principal); G89.29 Other chronic pain; E55.9 Vitamin D deficiency, unspecified; D50.9 Iron deficiency anemia, unspecified; K21.9 Gastro-esophageal reflux disease without esophagitis; G47.33 Obstructive sleep apnea (adult) (pediatric); Z86.14 Personal history of Methicillin resistant Staphylococcus aureus infection; Z98.84 Bariatric surgery status; Z87.891 Personal history of nicotine dependence; Z88.0 Allergy status to penicillin; Z88.1 Allergy status to other antibiotic agents; Z88.5 Allergy status to narcotic agent; Z88.8 Allergy status to other drugs, medicaments and biological substances; Z91.09 Other allergy status, other than to drugs and biological substances; E66.01 Morbid (severe) obesity due to excess calories; Z68.43 Body mass index [BMI] 50.0-59.9, adult; Z79.899 Other long term (current) drug therapy ==

== ENCOUNTER → 2021-09-25 | Outpatient (RCR) | payer MEDICARE, MEDICAID | LOC: M OT 09-13 09:26 | PROVIDERS: ATTEND Orthopaedic Surgery Hand Surgery | DX: S63.392A Traumatic rupture of other ligament of left wrist, initial encounter (principal); X58.XXXA Exposure to other specified factors, initial encounter; Y92.9 Unspecified place or not applicable ==

== ENCOUNTER → 2021-10-06 | Outpatient (CLI) | payer MEDICARE, MEDICAID | LOC: M PLARAD 07:40 | PROVIDERS: ATTEND Anesthesiology | DX: M47.816 Spondylosis without myelopathy or radiculopathy, lumbar region (principal) ==

== ENCOUNTER 2021-10-19 08:14 | Outpatient (RCR) | payer MEDICARE, MEDICAID ==
[~2021-10-19 08:14] MED LIST changes: -D31000TA2 PO; +VITA100093 PO
== END 2021-10-23 ==
LOC: M OT 08:14
PROVIDERS: ATTEND Orthopaedic Surgery Hand Surgery
DX: S63.392A Traumatic rupture of other ligament of left wrist, initial encounter (principal); X58.XXXA Exposure to other specified factors, initial encounter; Y92.9 Unspecified place or not applicable

== ENCOUNTER → 2021-10-30 | Outpatient (CLI) | payer MEDICARE, MEDICAID | LOC: M SOG 13:48 | PROVIDERS: ATTEND Orthopaedic Surgery Hand Surgery | DX: S63.512D Sprain of carpal joint of left wrist, subsequent encounter (principal) ==

== ENCOUNTER → 2021-11-03 | Outpatient (CLI) | payer MEDICARE, MEDICAID ==
[2021-11-03 14:38] LABS: BASO # 0.1 10^3/uL (0.0-0.2); BASO % 0.9 % (0.0-1.0); EOS # 0.2 10^3/uL (0.0-0.5); EOS % 2.4 % (0.0-3.0); HEMATOCRIT 37.1 % (36.0-47.0); HEMOGLOBIN 11.4 g/dl (12.0-15.5); LYMPH # 2.1 10^3/uL (1.5-5.0); LYMPH % 27.1 % (24.0-44.0); MEAN CORPUSCULAR HGB CONC 30.7 g/dl (32.0-36.5); MEAN CORPUSCULAR VOLUME 87.7 fl (80.0-96.0); MONO # 0.5 10^3/uL (0.0-0.8); MONO % 6.7 % (2.0-8.0); NEUTROPHILS # 4.8 10^3/uL (1.5-8.5); NEUTROPHILS % 62.6 % (36.0-66.0); PLATELET COUNT, AUTOMATED 353 10^3/uL (150-450); RED BLOOD COUNT 4.23 10^6/uL (4.00-5.40); WHITE BLOOD COUNT 7.6 10^3/uL (4.0-10.0)
[2021-11-03 14:40] LABS: HEMATOCRIT 37.1 % (36.0-47.0)
[2021-11-03 15:06] LABS: MALB URINE SIEMENS 8.4 MG/L; MAU/CREAT RATIO 8.3 MCG/MG (0.0-30.0)
[2021-11-03 15:21] LABS: HEMOGLOBIN A1c 5.6 %
[2021-11-03 15:36] LABS: ALBUMIN 3.5 GM/DL (3.2-5.2); ALT/SGPT 24 U/L (12-78); BILIRUBIN,TOTAL 0.4 MG/DL (0.2-1.0); BLOOD UREA NITROGEN 17 MG/DL (7-18); CALCIUM LEVEL 8.4 MG/DL (8.8-10.2); CARBON DIOXIDE LEVEL 29 MEQ/L (21-32); CHLORIDE LEVEL 109 MEQ/L (98-107); CREATININE FOR GFR 0.63 MG/DL (0.55-1.30); FERRITIN 10 NG/ML (8-252); FOLATE 13.9 NG/ML (>5.4); GLOMERULAR FILTRATION RATE > 60.0 (>45); GLUCOSE, FASTING 90 MG/DL (70-100); NT-PRO BNP 194 PG/ML (<125); POTASSIUM SERUM 4.6 MEQ/L (3.5-5.1); PTH INTACT 91.6 PG/ML (18.5-88.0); SODIUM LEVEL 140 MEQ/L (136-145); TOTAL 25(OH) VITAMIN D 47.1 NG/ML (30.0-100.0); TOTAL PROTEIN 6.6 GM/DL (6.4-8.2); VITAMIN B12 LEVEL 408 PG/ML (247-911)
== END ==
LOC: M PLALAB 09:20
PROVIDERS: ATTEND Family Medicine
DX: R73.01 Impaired fasting glucose (principal); I10 Essential (primary) hypertension; D50.9 Iron deficiency anemia, unspecified; E55.9 Vitamin D deficiency, unspecified; Z79.899 Other long term (current) drug therapy

== ENCOUNTER 2021-11-22 12:15 | Outpatient (RCR) | payer MEDICARE, MEDICAID | END 2021-11-23 | LOC: M OT 12:15 | PROVIDERS: ATTEND Orthopaedic Surgery Hand Surgery | DX: S63.392A Traumatic rupture of other ligament of left wrist, initial encounter (principal) ==

== ENCOUNTER → 2021-12-13 | Outpatient (CLI) | payer MEDICARE, MEDICAID | LOC: M LABSMTC 09:06 | PROVIDERS: ATTEND Anesthesiology | DX: Z01.818 Encounter for other preprocedural examination (principal); Z11.52 Encounter for screening for COVID-19 ==

== ENCOUNTER → 2021-12-15 | Outpatient (CLI) | payer MEDICARE, MEDICAID ==
[~2021-12-15] MED LIST changes: +BUPIVACAINE HCL 0.25% 30ML VIAL As Ordered ONE; +ISOVUE-M 300 61% 15ML VIAL As Ordered ONE; +LIDOCAINE 1% SDV 30ML VIAL As Ordered ONE
[2021-12-15 10:05] VITALS: BP 170/72
== END ==
LOC: M IRPRO 07:52
PROVIDERS: ATTEND Anesthesiology
DX: M47.816 Spondylosis without myelopathy or radiculopathy, lumbar region (principal); G47.30 Sleep apnea, unspecified; M19.90 Unspecified osteoarthritis, unspecified site; Z88.0 Allergy status to penicillin; Z88.2 Allergy status to sulfonamides; Z88.5 Allergy status to narcotic agent; Z88.8 Allergy status to other drugs, medicaments and biological substances; Z98.84 Bariatric surgery status; Z86.59 Personal history of other mental and behavioral disorders; Z86.14 Personal history of Methicillin resistant Staphylococcus aureus infection; Z87.891 Personal history of nicotine dependence; Z79.01 Long term (current) use of anticoagulants
CPT/HCPCS: 64493; 64494; Q9967

== ENCOUNTER 2021-12-22 08:30 | Outpatient (RCR) | payer MEDICARE, MEDICAID ==
[~2021-12-22 08:30] MED LIST changes: -BUPIVACAINE HCL 0.25% 30ML VIAL As Ordered ONE; -ISOVUE-M 300 61% 15ML VIAL As Ordered ONE; -LIDOCAINE 1% SDV 30ML VIAL As Ordered ONE
== END 2021-12-23 ==
LOC: M PT 08:30
PROVIDERS: ATTEND Orthopaedic Surgery Hand Surgery
DX: S63.392D Traumatic rupture of other ligament of left wrist, subsequent encounter (principal); S62.609D Fracture of unspecified phalanx of unspecified finger, subsequent encounter for fracture with routine healing; S46.012D Strain of muscle(s) and tendon(s) of the rotator cuff of left shoulder, subsequent encounter

== ENCOUNTER 2022-01-05 07:47 | Outpatient (RCR) | payer MEDICARE, MEDICAID | END 2022-01-23 | LOC: M PT 07:47 | PROVIDERS: ATTEND Orthopaedic Surgery Hand Surgery | DX: S63.392A Traumatic rupture of other ligament of left wrist, initial encounter (principal); X58.XXXA Exposure to other specified factors, initial encounter; Y92.9 Unspecified place or not applicable ==

== ENCOUNTER → 2022-02-15 | Outpatient (CLI) | payer MEDICARE, MEDICAID | LOC: M PAIN 10:15 | PROVIDERS: ATTEND Nurse Practitioner Family | DX: M47.816 Spondylosis without myelopathy or radiculopathy, lumbar region (principal); E55.9 Vitamin D deficiency, unspecified; D50.9 Iron deficiency anemia, unspecified; R73.01 Impaired fasting glucose; K21.9 Gastro-esophageal reflux disease without esophagitis; G47.33 Obstructive sleep apnea (adult) (pediatric); Z86.14 Personal history of Methicillin resistant Staphylococcus aureus infection; Z98.84 Bariatric surgery status; Z87.891 Personal history of nicotine dependence; Z88.0 Allergy status to penicillin; Z88.1 Allergy status to other antibiotic agents; Z88.4 Allergy status to anesthetic agent; Z88.5 Allergy status to narcotic agent; Z88.8 Allergy status to other drugs, medicaments and biological substances; Z91.09 Other allergy status, other than to drugs and biological substances; E66.01 Morbid (severe) obesity due to excess calories; Z68.41 Body mass index [BMI] 40.0-44.9, adult; Z79.899 Other long term (current) drug therapy ==

== ENCOUNTER → 2022-03-23 | Outpatient (CLI) | payer MEDICARE, MEDICAID | LOC: M PAIN 10:30 | PROVIDERS: ATTEND Anesthesiology | DX: M47.816 Spondylosis without myelopathy or radiculopathy, lumbar region (principal); G89.29 Other chronic pain; E55.9 Vitamin D deficiency, unspecified; D50.9 Iron deficiency anemia, unspecified; R73.01 Impaired fasting glucose; K21.9 Gastro-esophageal reflux disease without esophagitis; G47.33 Obstructive sleep apnea (adult) (pediatric); Z86.14 Personal history of Methicillin resistant Staphylococcus aureus infection; Z87.891 Personal history of nicotine dependence; Z88.0 Allergy status to penicillin; Z88.1 Allergy status to other antibiotic agents; Z88.4 Allergy status to anesthetic agent; Z88.5 Allergy status to narcotic agent; Z88.8 Allergy status to other drugs, medicaments and biological substances; Z91.09 Other allergy status, other than to drugs and biological substances; E66.01 Morbid (severe) obesity due to excess calories; Z68.41 Body mass index [BMI] 40.0-44.9, adult; Z79.899 Other long term (current) drug therapy ==

== ENCOUNTER → 2022-04-16 | Outpatient (CLI) | payer MEDICARE, MEDICAID ==
[2022-04-16 14:20] LABS: BASO # 0.1 10^3/uL (0.0-0.2); BASO % 0.8 % (0.0-1.0); EOS # 0.2 10^3/uL (0.0-0.5); HEMATOCRIT 38.1 % (36.0-47.0); HEMOGLOBIN 11.1 g/dl (12.0-15.5); LYMPH # 2.2 10^3/uL (1.5-5.0); LYMPH % 25.3 % (24.0-44.0); MEAN CORPUSCULAR HEMOGLOBIN 26.2 pg (27.0-33.0); MEAN CORPUSCULAR HGB CONC 29.1 g/dl (32.0-36.5); MEAN CORPUSCULAR VOLUME 90.1 fl (80.0-96.0); MONO # 0.5 10^3/uL (0.0-0.8); MONO % 6.2 % (2.0-8.0); NEUTROPHILS # 5.5 10^3/uL (1.5-8.5); NEUTROPHILS % 65.3 % (36.0-66.0); PLATELET COUNT, AUTOMATED 384 10^3/uL (150-450); RED BLOOD COUNT 4.23 10^6/uL (4.00-5.40); WHITE BLOOD COUNT 8.5 10^3/uL (4.0-10.0)
[2022-04-16 15:06] LABS: ALBUMIN 3.6 GM/DL (3.2-5.2); ALT/SGPT 22 U/L (12-78); BILIRUBIN,TOTAL 0.4 MG/DL (0.2-1.0); BLOOD UREA NITROGEN 18 MG/DL (7-18); CALCIUM LEVEL 9.2 MG/DL (8.8-10.2); CARBON DIOXIDE LEVEL 26 MEQ/L (21-32); CHLORIDE LEVEL 106 MEQ/L (98-107); CREATININE FOR GFR 0.74 MG/DL (0.55-1.30); FERRITIN 14 NG/ML (8-252); GLOMERULAR FILTRATION RATE > 60.0 (>45); GLUCOSE, FASTING 100 MG/DL (70-100); MAGNESIUM LEVEL 2.2 MG/DL (1.8-2.4); NT-PRO BNP 112 PG/ML (<125); POTASSIUM SERUM 4.6 MEQ/L (3.5-5.1); SODIUM LEVEL 137 MEQ/L (136-145); TOTAL PROTEIN 7.2 GM/DL (6.4-8.2)
[2022-04-16 15:39] LABS: HEMOGLOBIN A1c 5.8 %
== END ==
LOC: M PLALAB 09:07
PROVIDERS: ATTEND Family Medicine
DX: K21.9 Gastro-esophageal reflux disease without esophagitis (principal); D50.9 Iron deficiency anemia, unspecified; R73.01 Impaired fasting glucose

== ENCOUNTER 2022-04-26 09:30 | Outpatient (CLI) | payer MEDICARE, MEDICAID ==
[~2022-04-26] VITALS: Ht 162.6 cm; Wt 107.3 kg
[~2022-04-26 09:30] MED LIST changes: +ALBUTEROL SULFATE 2.5 MG/0.5 ML INH NEB SOLN INH PRN; +EPINEPHrine INJ 1 MG/ML 1ML AMP IM PRN; +diphenhydrAMINE 50MG/ML VIAL (J1200) IV PRN; +methylPREDNISolone 125MG 2ML VIAL IV PRN
[2022-04-26 09:43] VITALS: BP 183/84
[2022-04-26] MEDS ORDERED: NS 1,000 ML IV ONE (10:00)
[2022-04-26] MEDS ORDERED: IRON SUCROSE IV ONE ×2 (10:00→10:17)
[2022-04-26] MEDS ORDERED: NS IV ONE ×2 (10:00→10:17)
[2022-04-26 10:45] VITALS: BP 137/65
[2022-04-26 11:45] VITALS: BP 173/83
[2022-04-26 12:45] VITALS: BP 154/70
== END 2022-04-26 14:25 | disposition home or self-care (01) ==
LOC: M INFU 09:30
PROVIDERS: ATTEND Family Medicine
DX: D50.9 Iron deficiency anemia, unspecified (principal); Z88.0 Allergy status to penicillin; Z88.1 Allergy status to other antibiotic agents; Z88.2 Allergy status to sulfonamides; Z88.5 Allergy status to narcotic agent; Z88.8 Allergy status to other drugs, medicaments and biological substances
CPT/HCPCS: 96365; 96366; J1756

== ENCOUNTER 2022-05-03 07:20 | Outpatient (CLI) | payer MEDICARE, MEDICAID ==
[~2022-05-03] VITALS: Ht 162.6 cm; Wt 107.0 kg
[2022-05-03] MEDS ORDERED: NS 1,000 ML IV SCH (07:30)
[2022-05-03] MEDS ORDERED: IRON SUCROSE IV ONE (07:30)
[2022-05-03] MEDS ORDERED: NS IV ONE (07:30)
[2022-05-03 07:32] VITALS: BP 143/67
[2022-05-03 09:00] VITALS: BP 153/70
[2022-05-03 11:00] VITALS: BP 168/74
[2022-05-03 12:13] VITALS: BP 170/89
== END 2022-05-03 12:15 | disposition home or self-care (01) ==
LOC: M INFU 07:20
PROVIDERS: ATTEND Family Medicine
DX: D50.9 Iron deficiency anemia, unspecified (principal); Z88.0 Allergy status to penicillin; Z88.1 Allergy status to other antibiotic agents; Z88.2 Allergy status to sulfonamides; Z88.5 Allergy status to narcotic agent
CPT/HCPCS: 96365; 96366; J1756

== ENCOUNTER → 2022-05-10 | Outpatient (CLI) | payer MEDICARE, MEDICAID ==
[~2022-05-10] MED LIST changes: -ALBUTEROL SULFATE 2.5 MG/0.5 ML INH NEB SOLN INH PRN; -EPINEPHrine INJ 1 MG/ML 1ML AMP IM PRN; -diphenhydrAMINE 50MG/ML VIAL (J1200) IV PRN; -methylPREDNISolone 125MG 2ML VIAL IV PRN
[2022-05-10 10:14] LABS: HEMOGLOBIN 11.6 g/dl (12.0-15.5); MEAN CORPUSCULAR HEMOGLOBIN 26.5 pg (27.0-33.0); MEAN CORPUSCULAR HGB CONC 29.7 g/dl (32.0-36.5); PLATELET COUNT, AUTOMATED 293 10^3/uL (150-450); RED BLOOD COUNT 4.38 10^6/uL (4.00-5.40); WHITE BLOOD COUNT 8.6 10^3/uL (4.0-10.0)
[2022-05-10 10:54] LABS: BLOOD UREA NITROGEN 15 MG/DL (7-18); CALCIUM LEVEL 9.6 MG/DL (8.8-10.2); CARBON DIOXIDE LEVEL 30 MEQ/L (21-32); CHLORIDE LEVEL 105 MEQ/L (98-107); CREATININE FOR GFR 0.68 MG/DL (0.55-1.30); GLOMERULAR FILTRATION RATE > 60.0 (>45); GLUCOSE, FASTING 90 MG/DL (70-100); POTASSIUM SERUM 4.2 MEQ/L (3.5-5.1); SODIUM LEVEL 137 MEQ/L (136-145)
== END ==
LOC: M LAB 09:24
PROVIDERS: ATTEND Internal Medicine Cardiovascular Disease
DX: I48.0 Paroxysmal atrial fibrillation (principal)

== ENCOUNTER → 2022-06-11 | Outpatient (CLI) | payer MEDICARE, MEDICAID ==
[2022-06-11 09:45] LABS: BLOOD UREA NITROGEN 18 MG/DL (7-18); CALCIUM LEVEL 8.9 MG/DL (8.8-10.2); CARBON DIOXIDE LEVEL 27 MEQ/L (21-32); CHLORIDE LEVEL 109 MEQ/L (98-107); CREATININE FOR GFR 0.78 MG/DL (0.55-1.30); GLOMERULAR FILTRATION RATE > 60.0 (>45); GLUCOSE, FASTING 100 MG/DL (70-100); NT-PRO BNP 194 PG/ML (<125); POTASSIUM SERUM 4.7 MEQ/L (3.5-5.1); SODIUM LEVEL 140 MEQ/L (136-145)
== END ==
LOC: M LAB 07:54
PROVIDERS: ATTEND Internal Medicine Cardiovascular Disease
DX: I50.9 Heart failure, unspecified (principal); I48.0 Paroxysmal atrial fibrillation

== ENCOUNTER 2022-07-19 09:16 | Emergency (ER) | payer MEDICARE, MEDICAID ==
[~2022-07-19] VITALS: Ht 160 cm; Wt 105.6 kg
[2022-07-19 11:07] LABS: RSV AMPLIFICATION NEGATIVE (NEGATIVE)
[2022-07-19 12:12] VITALS: BP 150/74
== END 2022-07-19 12:27 | disposition home or self-care (01) ==
LOC: M ED 09:16
DX: J09.X2 Influenza due to identified novel influenza A virus with other respiratory manifestations (principal); K21.9 Gastro-esophageal reflux disease without esophagitis; Z86.79 Personal history of other diseases of the circulatory system; Z88.0 Allergy status to penicillin; Z88.1 Allergy status to other antibiotic agents; Z88.2 Allergy status to sulfonamides; Z88.5 Allergy status to narcotic agent; Z79.51 Long term (current) use of inhaled steroids; Z79.899 Other long term (current) drug therapy; Z79.1 Long term (current) use of non-steroidal anti-inflammatories (NSAID)

== ENCOUNTER 2022-08-23 14:39 | Observation (INO) | payer MEDICARE, MEDICAID ==
[~2022-08-23] VITALS: Ht 160 cm; Wt 104.2 kg
[2022-08-23] MEDS ORDERED: ASPIRIN 81MG CHEW TABLET PO ONE (15:10)
[2022-08-23 15:27] LABS: BASO # 0.1 10^3/uL (0.0-0.2); BASO % 0.9 % (0.0-1.0); EOS # 0.1 10^3/uL (0.0-0.5); EOS % 1.4 % (0.0-3.0); HEMATOCRIT 41.8 % (36.0-47.0); LYMPH # 2.3 10^3/uL (1.5-5.0); LYMPH % 23.9 % (24.0-44.0); MEAN CORPUSCULAR HEMOGLOBIN 29.1 pg (27.0-33.0); MEAN CORPUSCULAR HGB CONC 31.1 g/dl (32.0-36.5); MEAN CORPUSCULAR VOLUME 93.7 fl (80.0-96.0); MONO # 0.6 10^3/uL (0.0-0.8); MONO % 6.1 % (2.0-8.0); NEUTROPHILS # 6.5 10^3/uL (1.5-8.5); NEUTROPHILS % 67.3 % (36.0-66.0); PLATELET COUNT, AUTOMATED 377 10^3/uL (150-450); RED BLOOD COUNT 4.46 10^6/uL (4.00-5.40); WHITE BLOOD COUNT 9.7 10^3/uL (4.0-10.0)
[2022-08-23 15:46] LABS: INR 1.11; PROTHROMBIN TIME 14.5 SECONDS (12.5-14.5)
[2022-08-23 15:47] LABS: PARTIAL THROMBOPLASTIN TIME 30.3 SECONDS (24.8-34.2)
[2022-08-23 15:50] LABS: CK-MB VALUE MASS < 1.0 NG/ML (<3.6); LIPASE 29 U/L (12-53)
[2022-08-23 15:52] LABS: BILIRUBIN,DIRECT 0.1 MG/DL (<0.4)
[2022-08-23 15:53] LABS: ALBUMIN 3.8 G/DL (3.2-5.2); ALKALINE PHOSPHATASE 171 U/L (46-116); ALT/SGPT 17 U/L (7.0-40); AST/SGOT 21 U/L (<34); BILIRUBIN,TOTAL 0.3 MG/DL (0.3-1.2); BLOOD UREA NITROGEN 14 MG/DL (9-23); CALCIUM LEVEL 9.2 MG/DL (8.3-10.6); CARBON DIOXIDE LEVEL 25 MMOL/L (20-31); CHLORIDE LEVEL 106 MMOL/L (98-107); CREATININE FOR GFR 0.64 MG/DL (0.55-1.30); GLOMERULAR FILTRATION RATE > 60.0 (>45); GLUCOSE, FASTING 121 MG/DL (74-106); POTASSIUM SERUM 4.2 MMOL/L (3.5-5.1); SODIUM LEVEL 140 MMOL/L (136-145); THYROID STIMULATING HORMONE 2.195 uIU/ML (0.55-4.78)
[2022-08-23 15:55] LABS: FREE T4 0.99 NG/DL (0.89-1.76)
[2022-08-23 15:56] LABS: CPK CREATINE PHOSPHOKINASE 57 U/L (34-145); MB/CK RELATIVE INDEX 1.75 (< OR =4)
[2022-08-23 16:29] LABS: CK-MB VALUE MASS < 1.0 NG/ML (<3.6)
[2022-08-23 16:39] LABS: CPK CREATINE PHOSPHOKINASE 73 U/L (34-145); MB/CK RELATIVE INDEX 1.36 (< OR =4)
[2022-08-23] MEDS ORDERED: RIVAROXABAN 20MG TAB (XARELTO) PO SCH (18:00)
[2022-08-23] MEDS ORDERED: ACETAMINOPHEN TAB 650MG DOSE (2X325MG) PO PRN (18:00)
[2022-08-23] MEDS ORDERED: ACET-683 PO (18:22)
[2022-08-23] MEDS ORDERED: PANT-23 PO (18:22)
[2022-08-23] MEDS ORDERED: HOME MED LIST COMPLETE! XX SCH (18:25)
[2022-08-23 19:41] LABS: CHOLESTEROL LEVEL 146 MG/DL (<200); CHOLESTEROL RISK RATIO 2.39 (<5); HDL CHOLESTEROL 60.9 MG/DL (>40); LDL CHOLESTEROL 59.9 MG/DL (<100); NON-HDL-C 85 MG/DL; TRIGLYCERIDES LEVEL 126 MG/DL (<150)
[2022-08-23 19:42] LABS: HEMOGLOBIN A1c 5.4 % (4.0-6.0)
[2022-08-23 20:23] LABS: RSV AMPLIFICATION NEGATIVE (NEGATIVE)
[2022-08-23] MEDS ORDERED: ROSUVASTATIN 10 MG TAB (CRESTOR) PO SCH (21:00)
[2022-08-23] MEDS: PANTOPRAZOLE 40MG TAB (PROTONIX) PO SCH (21:00)
[2022-08-23 22:20] VITALS: BP 182/78
[2022-08-24 00:23] LABS: CK-MB VALUE MASS < 1.0 NG/ML (<3.6)
[2022-08-24 00:24] LABS: CPK CREATINE PHOSPHOKINASE 41 U/L (34-145); MB/CK RELATIVE INDEX 2.43 (< OR =4)
[2022-08-24 04:00] VITALS: BP 122/56
[2022-08-24 08:18] LABS: HEMATOCRIT 39.8 % (36.0-47.0); MEAN CORPUSCULAR HEMOGLOBIN 28.7 pg (27.0-33.0); MEAN CORPUSCULAR HGB CONC 30.2 g/dl (32.0-36.5); MEAN CORPUSCULAR VOLUME 95.2 fl (80.0-96.0); PLATELET COUNT, AUTOMATED 338 10^3/uL (150-450); RED BLOOD COUNT 4.18 10^6/uL (4.00-5.40)
[2022-08-24 08:27] VITALS: BP 140/67
[2022-08-24 08:39] LABS: CK-MB VALUE MASS 1.2 NG/ML (<3.6)
[2022-08-24 08:40] LABS: BLOOD UREA NITROGEN 15 MG/DL (9-23); CALCIUM LEVEL 8.7 MG/DL (8.3-10.6); CARBON DIOXIDE LEVEL 29 MMOL/L (20-31); CHLORIDE LEVEL 108 MMOL/L (98-107); CREATININE FOR GFR 0.64 MG/DL (0.55-1.30); GLOMERULAR FILTRATION RATE > 60.0 (>45); GLUCOSE, FASTING 103 MG/DL (74-106); POTASSIUM SERUM 4.2 MMOL/L (3.5-5.1); SODIUM LEVEL 141 MMOL/L (136-145)
[2022-08-24] MEDS: PANTOPRAZOLE 40MG TAB (PROTONIX) PO SCH (08:43)
[2022-08-24 08:47] LABS: CPK CREATINE PHOSPHOKINASE 82 U/L (34-145); MB/CK RELATIVE INDEX 1.46 (< OR =4)
[2022-08-24] MEDS ORDERED: ASPIRIN 81MG ENTERIC TABLET PO SCH (09:00)
[2022-08-24] MEDS ORDERED: PREVNAR-20 VACCINE 0.5ML SYRINGE IM.IMMUN ONE (09:00)
[2022-08-24] MEDS: SUCRALFATE 1 GM TAB PO SCH ×2 (09:05→12:04)
[2022-08-24] MEDS ORDERED: ASPI81TAEC PO (11:53)
[2022-08-24] MEDS ORDERED: CRES10TA PO (11:53)
[2022-08-24 12:01] VITALS: BP 158/80
[2022-08-24] MEDS ORDERED: SUCRALFATE 1 GM TAB PO SCH (17:30)
== END 2022-08-24 14:22 | disposition home or self-care (01) ==
LOC: M ED 14:39 → M ED INP 14:40 → M PCU 22:10
PROVIDERS: ADMIT Family Medicine; ATTEND Family Medicine
DX: I69.954 Hemiplegia and hemiparesis following unspecified cerebrovascular disease affecting left non-dominant side (principal); I11.9 Hypertensive heart disease without heart failure; Z86.718 Personal history of other venous thrombosis and embolism; G47.33 Obstructive sleep apnea (adult) (pediatric); I48.0 Paroxysmal atrial fibrillation; K76.0 Fatty (change of) liver, not elsewhere classified; Z87.891 Personal history of nicotine dependence; R73.03 Prediabetes; D50.9 Iron deficiency anemia, unspecified; Z98.84 Bariatric surgery status; Z79.01 Long term (current) use of anticoagulants; Z79.82 Long term (current) use of aspirin; Z79.899 Other long term (current) drug therapy; Z23 Encounter for immunization
CPT/HCPCS: 36415; 70450; 71045; 80048; 80061; 80076; 82550; 82553; 83036; 83690; 83880; 84439; 84443; 84484; 85025; 85027; 85610; 85730; 87631; 90677; 93005; 93041; 93880; 94760; 97161; 97165; 99285; G0009; G0378

== ENCOUNTER 2022-09-06 10:28 | Outpatient (CLI) | payer MEDICARE, MEDICAID ==
[~2022-09-06] VITALS: Ht 165.1 cm; Wt 103.0 kg
[~2022-09-06 10:28] MED LIST changes: +ACET-683 PO; +ASPI81TAEC PO; +CRES10TA PO; +PANT-23 PO; +ZOLEDRONIC ACID 5 MG in IV 1 EA IV ONE
[2022-09-06] MEDS ORDERED: ZOLEDRONIC ACID 5 MG in IV 1 EA IV ONE (11:00)
[2022-09-06 11:17] VITALS: BP 133/71
== END 2022-09-06 11:20 | disposition home or self-care (01) ==
LOC: M INFU 10:28
PROVIDERS: ATTEND Family Medicine
DX: M85.80 Other specified disorders of bone density and structure, unspecified site (principal); Z88.0 Allergy status to penicillin; Z88.1 Allergy status to other antibiotic agents; Z88.2 Allergy status to sulfonamides; Z88.5 Allergy status to narcotic agent; Z88.8 Allergy status to other drugs, medicaments and biological substances

== ENCOUNTER 2022-09-24 06:36 | Outpatient (RCR) | payer MEDICARE, MEDICAID ==
[~2022-09-24 06:36] MED LIST changes: -ZOLEDRONIC ACID 5 MG in IV 1 EA IV ONE
== END 2022-09-25 ==
LOC: M PT 06:36
PROVIDERS: ATTEND Family Medicine
DX: I69.954 Hemiplegia and hemiparesis following unspecified cerebrovascular disease affecting left non-dominant side (principal)

== ENCOUNTER → 2022-10-03 | Outpatient (CLI) | payer MEDICARE, MEDICAID ==
[2022-10-03 13:35] LABS: BASO # 0.1 10^3/uL (0.0-0.2); BASO % 0.7 % (0.0-1.0); EOS # 0.2 10^3/uL (0.0-0.5); EOS % 3.1 % (0.0-3.0); HEMATOCRIT 36.3 % (36.0-47.0); HEMOGLOBIN 11.2 g/dl (12.0-15.5); LYMPH # 1.8 10^3/uL (1.5-5.0); LYMPH % 27.5 % (24.0-44.0); MEAN CORPUSCULAR HEMOGLOBIN 29.8 pg (27.0-33.0); MEAN CORPUSCULAR HGB CONC 30.9 g/dl (32.0-36.5); MEAN CORPUSCULAR VOLUME 96.5 fl (80.0-96.0); MONO # 0.5 10^3/uL (0.0-0.8); MONO % 6.7 % (2.0-8.0); NEUTROPHILS # 4.1 10^3/uL (1.5-8.5); NEUTROPHILS % 61.7 % (36.0-66.0); PLATELET COUNT, AUTOMATED 286 10^3/uL (150-450); RED BLOOD COUNT 3.76 10^6/uL (4.00-5.40); WHITE BLOOD COUNT 6.7 10^3/uL (4.0-10.0)
[2022-10-03 13:59] LABS: ALBUMIN 3.7 G/DL (3.2-5.2); BLOOD UREA NITROGEN 15 MG/DL (9-23); CALCIUM LEVEL 8.5 MG/DL (8.3-10.6); CARBON DIOXIDE LEVEL 30 MMOL/L (20-31); CHLORIDE LEVEL 111 MMOL/L (98-107); CREATININE FOR GFR 0.64 MG/DL (0.55-1.30); GLOMERULAR FILTRATION RATE > 60.0 (>45); GLUCOSE, FASTING 94 MG/DL (74-106); PHOSPHORUS LEVEL 2.7 MG/DL (2.4-5.1); POTASSIUM SERUM 3.8 MMOL/L (3.5-5.1); SODIUM LEVEL 145 MMOL/L (136-145)
[2022-10-03 14:04] LABS: FERRITIN 109.5 NG/ML (7.3-270.7); FREE T4 0.95 NG/DL (0.89-1.76); THYROID STIMULATING HORMONE 1.421 uIU/ML (0.55-4.78)
[2022-10-03 14:05] LABS: PTH INTACT 119.4 PG/ML (18.5-88.0)
[2022-10-03 14:07] LABS: TOTAL 25(OH) VITAMIN D 39.2 NG/ML (20.0-100.0)
[2022-10-03 14:08] LABS: VITAMIN B12 LEVEL 401 PG/ML (211-911)
[2022-10-06 12:36] LABS: HEMATOCRIT 36.3 % (36.0-47.0)
== END ==
LOC: M PLALAB 09:19
PROVIDERS: ATTEND Family Medicine
DX: E06.3 Autoimmune thyroiditis (principal); I10 Essential (primary) hypertension; D51.9 Vitamin B12 deficiency anemia, unspecified; R73.01 Impaired fasting glucose; M85.80 Other specified disorders of bone density and structure, unspecified site

== ENCOUNTER 2022-10-17 07:52 | Outpatient (RCR) | payer MEDICARE, MEDICAID | END 2022-10-23 | LOC: M PT 07:52 | PROVIDERS: ATTEND Family Medicine | DX: I69.954 Hemiplegia and hemiparesis following unspecified cerebrovascular disease affecting left non-dominant side (principal) ==

== ENCOUNTER → 2022-11-23 | Outpatient (RCR) | payer MEDICARE, MEDICAID | LOC: M PT 10-30 08:39 | PROVIDERS: ATTEND Family Medicine | DX: I63.9 Cerebral infarction, unspecified (principal) ==

== ENCOUNTER → 2023-03-26 | Outpatient (CLI) | payer MEDICARE, MEDICAID ==
[~2023-03-26] MED LIST changes: +LIDOCAINE 1% SDV 30ML VIAL As Ordered ONE; +dexAMETHasone 10MG/1ML VIAL PRES.FREE As Ordered ONE; +diazePAM 2 MG TAB As Ordered ONE; +diphenhydrAMINE 25MG CAP As Ordered ONE; +oxyCODONE 5MG TAB As Ordered ONE
== END ==
LOC: M PAIN 14:00
PROVIDERS: ATTEND Anesthesiology
DX: M47.816 Spondylosis without myelopathy or radiculopathy, lumbar region (principal); G89.29 Other chronic pain; G47.33 Obstructive sleep apnea (adult) (pediatric); I10 Essential (primary) hypertension; E55.9 Vitamin D deficiency, unspecified; D50.9 Iron deficiency anemia, unspecified; K21.9 Gastro-esophageal reflux disease without esophagitis; Z86.14 Personal history of Methicillin resistant Staphylococcus aureus infection; Z98.84 Bariatric surgery status; Z87.891 Personal history of nicotine dependence; Z88.0 Allergy status to penicillin; Z88.1 Allergy status to other antibiotic agents; Z88.5 Allergy status to narcotic agent; Z88.8 Allergy status to other drugs, medicaments and biological substances; Z91.09 Other allergy status, other than to drugs and biological substances; E66.01 Morbid (severe) obesity due to excess calories; Z68.41 Body mass index [BMI] 40.0-44.9, adult; Z79.01 Long term (current) use of anticoagulants; Z79.82 Long term (current) use of aspirin; Z79.899 Other long term (current) drug therapy
CPT/HCPCS: 64635; 64636; J0665; J1100

== ENCOUNTER → 2023-04-11 | Outpatient (CLI) | payer MEDICARE, MEDICAID ==
[~2023-04-11] MED LIST changes: -LIDOCAINE 1% SDV 30ML VIAL As Ordered ONE; -dexAMETHasone 10MG/1ML VIAL PRES.FREE As Ordered ONE; -diazePAM 2 MG TAB As Ordered ONE; -diphenhydrAMINE 25MG CAP As Ordered ONE; -oxyCODONE 5MG TAB As Ordered ONE
== END ==
LOC: M PAIN 10:30
PROVIDERS: ATTEND Anesthesiology
DX: M79.651 Pain in right thigh (principal); M47.816 Spondylosis without myelopathy or radiculopathy, lumbar region; G89.29 Other chronic pain; M79.2 Neuralgia and neuritis, unspecified; I10 Essential (primary) hypertension; E55.9 Vitamin D deficiency, unspecified; D50.9 Iron deficiency anemia, unspecified; K21.9 Gastro-esophageal reflux disease without esophagitis; G47.33 Obstructive sleep apnea (adult) (pediatric); Z86.718 Personal history of other venous thrombosis and embolism; Z86.14 Personal history of Methicillin resistant Staphylococcus aureus infection; Z98.84 Bariatric surgery status; Z87.891 Personal history of nicotine dependence; Z88.0 Allergy status to penicillin; Z88.1 Allergy status to other antibiotic agents; Z88.4 Allergy status to anesthetic agent; Z88.5 Allergy status to narcotic agent; Z88.8 Allergy status to other drugs, medicaments and biological substances; Z91.09 Other allergy status, other than to drugs and biological substances; E66.01 Morbid (severe) obesity due to excess calories; Z68.41 Body mass index [BMI] 40.0-44.9, adult; Z79.01 Long term (current) use of anticoagulants; Z79.82 Long term (current) use of aspirin; Z79.899 Other long term (current) drug therapy

== ENCOUNTER → 2023-04-18 | Outpatient (CLI) | payer MEDICARE, MEDICAID | LOC: M SOG 08:08 | PROVIDERS: ATTEND Physician Assistant | DX: M79.602 Pain in left arm (principal); M25.522 Pain in left elbow ==

== ENCOUNTER → 2023-05-01 | Outpatient (CLI) | payer MEDICARE, MEDICAID | LOC: M PAIN 13:30 | PROVIDERS: ATTEND Anesthesiology | DX: M47.816 Spondylosis without myelopathy or radiculopathy, lumbar region (principal); G89.29 Other chronic pain; G47.33 Obstructive sleep apnea (adult) (pediatric); I10 Essential (primary) hypertension; E55.9 Vitamin D deficiency, unspecified; D50.9 Iron deficiency anemia, unspecified; K21.9 Gastro-esophageal reflux disease without esophagitis; Z86.14 Personal history of Methicillin resistant Staphylococcus aureus infection; Z98.84 Bariatric surgery status; Z87.891 Personal history of nicotine dependence; Z88.0 Allergy status to penicillin; Z88.1 Allergy status to other antibiotic agents; Z88.5 Allergy status to narcotic agent; Z88.8 Allergy status to other drugs, medicaments and biological substances; Z91.09 Other allergy status, other than to drugs and biological substances; Z79.01 Long term (current) use of anticoagulants; Z79.899 Other long term (current) drug therapy ==

== ENCOUNTER → 2023-06-04 | Outpatient (CLI) | payer MEDICARE, MEDICAID | LOC: M PAIN 09:45 | PROVIDERS: ATTEND Anesthesiology | DX: M47.816 Spondylosis without myelopathy or radiculopathy, lumbar region (principal); M53.3 Sacrococcygeal disorders, not elsewhere classified; G89.29 Other chronic pain; Z86.14 Personal history of Methicillin resistant Staphylococcus aureus infection; Z98.84 Bariatric surgery status; Z87.891 Personal history of nicotine dependence; Z88.0 Allergy status to penicillin; Z88.1 Allergy status to other antibiotic agents; Z88.4 Allergy status to anesthetic agent; Z88.5 Allergy status to narcotic agent; Z88.8 Allergy status to other drugs, medicaments and biological substances; Z91.09 Other allergy status, other than to drugs and biological substances; E66.01 Morbid (severe) obesity due to excess calories; Z68.41 Body mass index [BMI] 40.0-44.9, adult; Z79.01 Long term (current) use of anticoagulants; Z79.82 Long term (current) use of aspirin; Z79.899 Other long term (current) drug therapy | CPT/HCPCS: 76000; G0463 ==

== ENCOUNTER 2023-06-12 07:38 | Outpatient (RCR) | payer MEDICARE, MEDICAID | END 2023-06-25 | LOC: M PT 07:38 | PROVIDERS: ATTEND Physician Assistant | DX: M77.02 Medial epicondylitis, left elbow (principal) ==

== ENCOUNTER → 2023-06-21 | Outpatient (CLI) | payer MEDICARE, MEDICAID | LOC: M PLAIMG 06:32 | PROVIDERS: ATTEND Anesthesiology | DX: M53.3 Sacrococcygeal disorders, not elsewhere classified (principal) ==

== ENCOUNTER → 2023-06-24 | Outpatient (REF) | payer MEDICARE, MEDICAID | LOC: M SFHCPLAZ 12:52 | PROVIDERS: ATTEND Family Medicine | DX: I63.9 Cerebral infarction, unspecified (principal); D51.9 Vitamin B12 deficiency anemia, unspecified; D50.9 Iron deficiency anemia, unspecified; I48.91 Unspecified atrial fibrillation ==

== ENCOUNTER → 2023-06-25 | Outpatient (CLI) | payer MEDICARE, MEDICAID ==
[2023-06-25 12:22] LABS: ALBUMIN 3.6 G/DL (3.2-5.2); ALKALINE PHOSPHATASE 140 U/L (46-116); ALT/SGPT 13 U/L (7.0-40); AST/SGOT 13 U/L (<34); BILIRUBIN,TOTAL 0.5 MG/DL (0.3-1.2); BLOOD UREA NITROGEN 23 MG/DL (9-23); CALCIUM LEVEL 9.1 MG/DL (8.3-10.6); CARBON DIOXIDE LEVEL 28 MMOL/L (20-31); CHLORIDE LEVEL 103 MMOL/L (98-107); CHOLESTEROL LEVEL 156 MG/DL (<200); CREATININE FOR GFR 0.74 MG/DL (0.55-1.30); GLOMERULAR FILTRATION RATE > 60.0 (>45); GLUCOSE, FASTING 93 MG/DL (74-106); MAGNESIUM LEVEL 2.2 MG/DL (1.8-2.4); POTASSIUM SERUM 4.5 MMOL/L (3.5-5.1); SODIUM LEVEL 139 MMOL/L (136-145); TOTAL PROTEIN 6.8 G/DL (5.7-8.2); TRIGLYCERIDES LEVEL 68 MG/DL (<150)
[2023-06-25 12:42] LABS: CHOLESTEROL RISK RATIO 2.19 (<5); HDL CHOLESTEROL 71.2 MG/DL (>40); LDL CHOLESTEROL 71.2 MG/DL (<100); NON-HDL-C 84.8 MG/DL
[2023-06-26 04:10] LABS: LDL DIRECT 72 mg/dL (0-99)
== END ==
LOC: M PLALAB 07:58
PROVIDERS: ATTEND Registered Nurse
DX: I48.0 Paroxysmal atrial fibrillation (principal); I49.3 Ventricular premature depolarization

== ENCOUNTER → 2023-06-25 | Outpatient (CLI) | payer MEDICARE, MEDICAID ==
[2023-06-25 11:34] LABS: BASO # 0.1 10^3/uL (0.0-0.2); BASO % 0.9 % (0.0-1.0); EOS # 0.2 10^3/uL (0.0-0.5); EOS % 2.1 % (0.0-3.0); HEMATOCRIT 41.3 % (36.0-47.0); HEMOGLOBIN 12.7 g/dl (12.0-15.5); LYMPH # 2.1 10^3/uL (1.5-5.0); LYMPH % 27.8 % (24.0-44.0); MEAN CORPUSCULAR HEMOGLOBIN 29.2 pg (27.0-33.0); MEAN CORPUSCULAR HGB CONC 30.8 g/dl (32.0-36.5); MEAN CORPUSCULAR VOLUME 94.9 fl (80.0-96.0); MONO # 0.6 10^3/uL (0.0-0.8); MONO % 7.5 % (2.0-8.0); NEUTROPHILS # 4.6 10^3/uL (1.5-8.5); NEUTROPHILS % 61.4 % (36.0-66.0); PLATELET COUNT, AUTOMATED 344 10^3/uL (150-450); RED BLOOD COUNT 4.35 10^6/uL (4.00-5.40); WHITE BLOOD COUNT 7.5 10^3/uL (4.0-10.0)
[2023-06-25 12:14] LABS: ALBUMIN 3.7 G/DL (3.2-5.2); ALKALINE PHOSPHATASE 141 U/L (46-116); ALT/SGPT 12 U/L (7.0-40); AST/SGOT 15 U/L (<34); BILIRUBIN,TOTAL 0.5 MG/DL (0.3-1.2); BLOOD UREA NITROGEN 22 MG/DL (9-23); CALCIUM LEVEL 9.1 MG/DL (8.3-10.6); CARBON DIOXIDE LEVEL 28 MMOL/L (20-31); CHLORIDE LEVEL 102 MMOL/L (98-107); CREATININE FOR GFR 0.73 MG/DL (0.55-1.30); FERRITIN 53.5 NG/ML (7.3-270.7); FREE T4 0.95 NG/DL (0.89-1.76); GLOMERULAR FILTRATION RATE > 60.0 (>45); GLUCOSE, FASTING 91 MG/DL (74-106); POTASSIUM SERUM 4.2 MMOL/L (3.5-5.1); SODIUM LEVEL 139 MMOL/L (136-145); THYROID STIMULATING HORMONE 2.812 uIU/ML (0.55-4.78); TOTAL PROTEIN 6.8 G/DL (5.7-8.2); VITAMIN B12 LEVEL 325 PG/ML (211-911)
== END ==
LOC: M PLALAB 07:54
PROVIDERS: ATTEND Family Medicine
DX: I63.9 Cerebral infarction, unspecified (principal); D51.9 Vitamin B12 deficiency anemia, unspecified; D50.9 Iron deficiency anemia, unspecified; I48.0 Paroxysmal atrial fibrillation; I49.3 Ventricular premature depolarization

== ENCOUNTER → 2023-07-22 | Outpatient (CLI) | payer MEDICARE, MEDICAID | LOC: M WHC 07:16 | PROVIDERS: ATTEND Family Medicine | DX: Z12.31 Encounter for screening mammogram for malignant neoplasm of breast (principal); Z13.820 Encounter for screening for osteoporosis; M85.851 Other specified disorders of bone density and structure, right thigh; M85.852 Other specified disorders of bone density and structure, left thigh ==

== ENCOUNTER → 2023-07-24 | Outpatient (CLI) | payer MEDICARE, MEDICAID | LOC: M PAIN 09:15 | PROVIDERS: ATTEND Anesthesiology | DX: M53.3 Sacrococcygeal disorders, not elsewhere classified (principal); Z86.14 Personal history of Methicillin resistant Staphylococcus aureus infection; Z98.84 Bariatric surgery status; Z87.891 Personal history of nicotine dependence; Z88.0 Allergy status to penicillin; Z88.1 Allergy status to other antibiotic agents; Z88.4 Allergy status to anesthetic agent; Z88.5 Allergy status to narcotic agent; Z88.8 Allergy status to other drugs, medicaments and biological substances; Z91.09 Other allergy status, other than to drugs and biological substances; E66.01 Morbid (severe) obesity due to excess calories; Z68.41 Body mass index [BMI] 40.0-44.9, adult; Z79.82 Long term (current) use of aspirin; Z79.899 Other long term (current) drug therapy ==

== ENCOUNTER → 2023-08-29 | Outpatient (CLI) | payer MEDICARE, MEDICAID ==
[~2023-08-29] MED LIST changes: +METHACHOLINE KIT INH ONE
== END ==
LOC: M CARPUL 07:35
PROVIDERS: ATTEND Nurse Practitioner Adult Health
DX: R06.02 Shortness of breath (principal)
CPT/HCPCS: 94070; 95070; J7674

== ENCOUNTER 2023-09-15 16:53 | Emergency (ER) | payer MEDICARE, MEDICAID ==
[~2023-09-15] VITALS: Ht 160 cm; Wt 107.5 kg
[~2023-09-15 16:53] MED LIST changes: -METHACHOLINE KIT INH ONE
[2023-09-15 18:28] LABS: BASO # 0.1 10^3/uL (0.0-0.2); BASO % 0.8 % (0.0-1.0); EOS # 0.1 10^3/uL (0.0-0.5); HEMATOCRIT 40.4 % (36.0-47.0); HEMOGLOBIN 12.8 g/dl (12.0-15.5); LYMPH # 2.4 10^3/uL (1.5-5.0); MEAN CORPUSCULAR HEMOGLOBIN 29.6 pg (27.0-33.0); MEAN CORPUSCULAR HGB CONC 31.7 g/dl (32.0-36.5); MEAN CORPUSCULAR VOLUME 93.5 fl (80.0-96.0); MONO # 0.6 10^3/uL (0.0-0.8); MONO % 5.8 % (2.0-8.0); NEUTROPHILS # 7.1 10^3/uL (1.5-8.5); NEUTROPHILS % 69.1 % (36.0-66.0); PLATELET COUNT, AUTOMATED 315 10^3/uL (150-450); RED BLOOD COUNT 4.32 10^6/uL (4.00-5.40); WHITE BLOOD COUNT 10.3 10^3/uL (4.0-10.0)
[2023-09-15 18:45] LABS: LIPASE 31 U/L (12-53)
[2023-09-15 18:47] LABS: ALBUMIN 3.5 G/DL (3.2-5.2); ALKALINE PHOSPHATASE 122 U/L (46-116); ALT/SGPT 17 U/L (7.0-40); AST/SGOT 12 U/L (<34); BILIRUBIN,DIRECT 0.2 MG/DL (<0.4); BILIRUBIN,TOTAL 0.4 MG/DL (0.3-1.2); BLOOD UREA NITROGEN 21 MG/DL (9-23); CALCIUM LEVEL 8.3 MG/DL (8.3-10.6); CARBON DIOXIDE LEVEL 27 MMOL/L (20-31); CHLORIDE LEVEL 112 MMOL/L (98-107); CREATININE FOR GFR 0.98 MG/DL (0.55-1.30); GLOMERULAR FILTRATION RATE > 60.0 (>45); GLUCOSE, FASTING 103 MG/DL (74-106); SODIUM LEVEL 143 MMOL/L (136-145); TOTAL PROTEIN 6.4 G/DL (5.7-8.2)
[2023-09-15] MEDS ORDERED: PANTOPRAZOLE 40MG VIAL IV ONE (22:15)
[2023-09-15] MEDS ORDERED: METOCLOPRAMIDE INJ 10MG/2ML VIAL IV ONE (22:15)
[2023-09-15] MEDS: GASTROGRAFIN SOLUTION 30ML PO SCH ×2 (23:31→23:55)
[2023-09-16] MEDS ORDERED: ISOVUE-370 76% 100ML VIAL As Ordered ONE (00:41)
[2023-09-16] MEDS ORDERED: PEPC1TAB5 PO (01:46)
[2023-09-16] MEDS ORDERED: REGL10TA6 PO (01:46)
[2023-09-16 02:00] VITALS: BP 144/70; TEMP 98.4; O2SAT 97
== END 2023-09-16 02:23 | disposition home or self-care (01) ==
LOC: M ED 16:53
DX: K30 Functional dyspepsia (principal); K21.9 Gastro-esophageal reflux disease without esophagitis; I10 Essential (primary) hypertension; Z86.79 Personal history of other diseases of the circulatory system; Z79.01 Long term (current) use of anticoagulants; Z88.0 Allergy status to penicillin; Z88.2 Allergy status to sulfonamides; Z88.5 Allergy status to narcotic agent; Z88.8 Allergy status to other drugs, medicaments and biological substances; Z79.52 Long term (current) use of systemic steroids; Z79.82 Long term (current) use of aspirin; Z79.899 Other long term (current) drug therapy
CPT/HCPCS: 74177; 80048; 80076; 81001; 83690; 85025; 96374; 99284; C9113; J2765; Q9963; Q9967

== ENCOUNTER → 2023-09-20 | Outpatient (CLI) | payer MEDICARE, MEDICAID ==
[~2023-09-20] MED LIST changes: +PEPC1TAB5 PO; +REGL10TA6 PO
[2023-09-20 10:20] LABS: ALBUMIN 3.4 G/DL (3.2-5.2); ALKALINE PHOSPHATASE 124 U/L (46-116); ALT/SGPT 16 U/L (7.0-40); AST/SGOT 13 U/L (<34); BILIRUBIN,TOTAL 0.4 MG/DL (0.3-1.2); BLOOD UREA NITROGEN 18 MG/DL (9-23); CALCIUM LEVEL 9.1 MG/DL (8.3-10.6); CARBON DIOXIDE LEVEL 29 MMOL/L (20-31); CHLORIDE LEVEL 111 MMOL/L (98-107); CREATININE FOR GFR 0.85 MG/DL (0.55-1.30); GLOMERULAR FILTRATION RATE > 60.0 (>45); GLUCOSE, FASTING 99 MG/DL (74-106); POTASSIUM SERUM 3.6 MMOL/L (3.5-5.1); SODIUM LEVEL 145 MMOL/L (136-145); TOTAL PROTEIN 6.3 G/DL (5.7-8.2)
== END ==
LOC: M PLALAB 07:52
PROVIDERS: ATTEND Family Medicine
DX: R73.01 Impaired fasting glucose (principal)

== ENCOUNTER → 2023-10-04 | Outpatient (REF) | payer MEDICARE, MEDICAID | LOC: M SFHCPLAZ 10:43 | PROVIDERS: ATTEND Family Medicine | DX: D50.9 Iron deficiency anemia, unspecified (principal); R73.01 Impaired fasting glucose; Z98.84 Bariatric surgery status; E55.9 Vitamin D deficiency, unspecified; I63.9 Cerebral infarction, unspecified ==

== ENCOUNTER → 2023-10-07 | Outpatient (CLI) | payer MEDICARE, MEDICAID | LOC: M PAIN 09:30 | PROVIDERS: ATTEND Nurse Practitioner Family | DX: M70.72 Other bursitis of hip, left hip (principal); G89.29 Other chronic pain; I10 Essential (primary) hypertension; K76.0 Fatty (change of) liver, not elsewhere classified; E66.01 Morbid (severe) obesity due to excess calories; Z98.84 Bariatric surgery status; E55.9 Vitamin D deficiency, unspecified; D50.9 Iron deficiency anemia, unspecified; R73.01 Impaired fasting glucose; K21.9 Gastro-esophageal reflux disease without esophagitis; I48.91 Unspecified atrial fibrillation; G47.33 Obstructive sleep apnea (adult) (pediatric); Z87.891 Personal history of nicotine dependence; Z68.41 Body mass index [BMI] 40.0-44.9, adult; Z79.891 Long term (current) use of opiate analgesic; Z79.82 Long term (current) use of aspirin; Z79.899 Other long term (current) drug therapy; Z88.0 Allergy status to penicillin; Z88.1 Allergy status to other antibiotic agents; Z88.2 Allergy status to sulfonamides; Z88.5 Allergy status to narcotic agent; Z88.8 Allergy status to other drugs, medicaments and biological substances; Z91.048 Other nonmedicinal substance allergy status ==

== ENCOUNTER 2023-10-11 06:46 | Outpatient (CLI) | payer MEDICARE, MEDICAID ==
[~2023-10-11] VITALS: Ht 160 cm; Wt 105.9 kg
[2023-10-11 07:00] VITALS: BP 170/79; O2SAT 98
[2023-10-11] MEDS: ZOLEDRONIC ACID 5 MG in IV 1 EA IV ONE (07:15)
[2023-10-11 07:55] VITALS: BP 148/65; O2SAT 99
== END 2023-10-11 07:50 ==
LOC: M INFU 06:46
PROVIDERS: ATTEND Family Medicine
DX: M85.80 Other specified disorders of bone density and structure, unspecified site (principal); Z88.0 Allergy status to penicillin; Z88.1 Allergy status to other antibiotic agents; Z88.2 Allergy status to sulfonamides; Z88.5 Allergy status to narcotic agent; Z88.8 Allergy status to other drugs, medicaments and biological substances
CPT/HCPCS: 96365; J3489

== ENCOUNTER → 2023-11-15 | Outpatient (CLI) | payer MEDICARE, MEDICAID ==
[~2023-11-15] MED LIST changes: +ISOVUE-M 300 61% 15ML VIAL As Ordered ONE; +LIDOCAINE 1% SDV 30ML VIAL As Ordered ONE; +TRIAMCINOLONE ACETONIDE SUSP 40MG/ML 1ML VIAL As Ordered ONE; +diazePAM 2 MG TAB As Ordered ONE; +diphenhydrAMINE 25MG CAP As Ordered ONE; +oxyCODONE 5MG TAB As Ordered ONE
== END ==
LOC: M PAIN 08:30
PROVIDERS: ATTEND Anesthesiology
DX: M70.60 Trochanteric bursitis, unspecified hip (principal); G47.30 Sleep apnea, unspecified; Z99.89 Dependence on other enabling machines and devices; I10 Essential (primary) hypertension; Z79.51 Long term (current) use of inhaled steroids; Z79.891 Long term (current) use of opiate analgesic; Z79.899 Other long term (current) drug therapy; Z91.048 Other nonmedicinal substance allergy status
CPT/HCPCS: 20610; 77002; J0665; J3301; Q9967

== ENCOUNTER → 2023-11-26 | Outpatient (REF) | payer MEDICARE, MEDICAID ==
[~2023-11-26] MED LIST changes: -ISOVUE-M 300 61% 15ML VIAL As Ordered ONE; -LIDOCAINE 1% SDV 30ML VIAL As Ordered ONE; +NYST100084 TOP; -NYST10OI TOP; -TRIAMCINOLONE ACETONIDE SUSP 40MG/ML 1ML VIAL As Ordered ONE; -diazePAM 2 MG TAB As Ordered ONE; -diphenhydrAMINE 25MG CAP As Ordered ONE; -oxyCODONE 5MG TAB As Ordered ONE
== END ==
LOC: M SFHCPLAZ 11:58
PROVIDERS: ATTEND Family Medicine
DX: D50.9 Iron deficiency anemia, unspecified (principal); R73.01 Impaired fasting glucose; Z98.84 Bariatric surgery status; E55.9 Vitamin D deficiency, unspecified; I63.9 Cerebral infarction, unspecified

== ENCOUNTER → 2023-12-06 | Outpatient (CLI) | payer MEDICARE, MEDICAID ==
[2023-12-06 11:59] LABS: BASO # 0.1 10^3/uL (0.0-0.2); EOS # 0.2 10^3/uL (0.0-0.5); EOS % 2.2 % (0.0-3.0); HEMATOCRIT 40.9 % (36.0-47.0); HEMOGLOBIN 12.7 g/dl (12.0-15.5); LYMPH # 2.1 10^3/uL (1.5-5.0); LYMPH % 29.6 % (24.0-44.0); MEAN CORPUSCULAR HEMOGLOBIN 29.1 pg (27.0-33.0); MEAN CORPUSCULAR HGB CONC 31.1 g/dl (32.0-36.5); MEAN CORPUSCULAR VOLUME 93.8 fl (80.0-96.0); MONO # 0.5 10^3/uL (0.0-0.8); MONO % 6.4 % (2.0-8.0); NEUTROPHILS # 4.3 10^3/uL (1.5-8.5); NEUTROPHILS % 60.4 % (36.0-66.0); PLATELET COUNT, AUTOMATED 322 10^3/uL (150-450); RED BLOOD COUNT 4.36 10^6/uL (4.00-5.40); WHITE BLOOD COUNT 7.2 10^3/uL (4.0-10.0)
[2023-12-06 12:01] LABS: ALBUMIN 3.7 G/DL (3.2-5.2); ALKALINE PHOSPHATASE 128 U/L (46-116); ALT/SGPT 15 U/L (7.0-40); AST/SGOT 13 U/L (<34); BILIRUBIN,TOTAL 0.5 MG/DL (0.3-1.2); BLOOD UREA NITROGEN 18 MG/DL (9-23); CALCIUM LEVEL 9.4 MG/DL (8.3-10.6); CARBON DIOXIDE LEVEL 26 MMOL/L (20-31); CHLORIDE LEVEL 109 MMOL/L (98-107); CHOLESTEROL LEVEL 138 MG/DL (<200); CHOLESTEROL RISK RATIO 2.04 (<5); CREATININE FOR GFR 0.69 MG/DL (0.55-1.30); GLOMERULAR FILTRATION RATE > 60.0 (>45); GLUCOSE, FASTING 88 MG/DL (74-106); HDL CHOLESTEROL 67.5 MG/DL (>40); LDL CHOLESTEROL 56.9 MG/DL (<100); NON-HDL-C 70.5 MG/DL; POTASSIUM SERUM 4.4 MMOL/L (3.5-5.1); SODIUM LEVEL 141 MMOL/L (136-145); TOTAL 25(OH) VITAMIN D 48.7 NG/ML (20.0-100.0); TOTAL PROTEIN 6.6 G/DL (5.7-8.2); TRIGLYCERIDES LEVEL 68 MG/DL (<150)
[2023-12-06 12:02] LABS: FERRITIN 44.1 NG/ML (7.3-270.7)
[2023-12-06 12:18] LABS: HEMOGLOBIN A1c 5.1 % (4.0-6.0)
[2023-12-06 13:55] LABS: PTH INTACT 54.7 PG/ML (18.5-88.0)
[2023-12-10 15:07] LABS: APOLIPOPROTEIN A-1 164 mg/dL (116-209); APOLIPOPROTEIN B 63 mg/dL (<90); APOLIPOPROTEIN B/A-1 RATIO 0.4 ratio (0.0-0.6); INSULIN LEVEL 8.1 uIU/mL (2.6-24.9)
== END ==
LOC: M PLALAB 08:00
PROVIDERS: ATTEND Family Medicine
DX: R73.01 Impaired fasting glucose (principal); I48.0 Paroxysmal atrial fibrillation; E55.9 Vitamin D deficiency, unspecified; D50.9 Iron deficiency anemia, unspecified; I63.9 Cerebral infarction, unspecified; K76.0 Fatty (change of) liver, not elsewhere classified; Z98.84 Bariatric surgery status

== ENCOUNTER → 2023-12-06 | Outpatient (CLI) | payer MEDICARE, MEDICAID ==
[2023-12-06 11:59] LABS: BLOOD UREA NITROGEN 18 MG/DL (9-23); CALCIUM LEVEL 9.4 MG/DL (8.3-10.6); CARBON DIOXIDE LEVEL 26 MMOL/L (20-31); CHLORIDE LEVEL 108 MMOL/L (98-107); GLOMERULAR FILTRATION RATE > 60.0 (>45); GLUCOSE, FASTING 89 MG/DL (74-106); POTASSIUM SERUM 4.4 MMOL/L (3.5-5.1); SODIUM LEVEL 141 MMOL/L (136-145)
[2023-12-06 12:00] LABS: BASO # 0.1 10^3/uL (0.0-0.2); EOS # 0.2 10^3/uL (0.0-0.5); EOS % 2.2 % (0.0-3.0); HEMATOCRIT 41.3 % (36.0-47.0); HEMOGLOBIN 12.7 g/dl (12.0-15.5); LYMPH # 2.3 10^3/uL (1.5-5.0); LYMPH % 31.5 % (24.0-44.0); MEAN CORPUSCULAR HEMOGLOBIN 29.1 pg (27.0-33.0); MEAN CORPUSCULAR HGB CONC 30.8 g/dl (32.0-36.5); MEAN CORPUSCULAR VOLUME 94.7 fl (80.0-96.0); MONO # 0.5 10^3/uL (0.0-0.8); MONO % 6.8 % (2.0-8.0); NEUTROPHILS # 4.3 10^3/uL (1.5-8.5); NEUTROPHILS % 58.2 % (36.0-66.0); PLATELET COUNT, AUTOMATED 305 10^3/uL (150-450); RED BLOOD COUNT 4.36 10^6/uL (4.00-5.40); WHITE BLOOD COUNT 7.3 10^3/uL (4.0-10.0)
== END ==
LOC: M PLALAB 08:03
PROVIDERS: ATTEND Internal Medicine Cardiovascular Disease
DX: I48.0 Paroxysmal atrial fibrillation (principal)

== ENCOUNTER → 2024-01-16 | Outpatient (CLI) | payer MEDICARE, MEDICAID | LOC: M PAIN 09:45 | PROVIDERS: ATTEND Nurse Practitioner Family | DX: M51.16 Intervertebral disc disorders with radiculopathy, lumbar region (principal); E55.9 Vitamin D deficiency, unspecified; I48.91 Unspecified atrial fibrillation; J45.20 Mild intermittent asthma, uncomplicated; I10 Essential (primary) hypertension; Z87.891 Personal history of nicotine dependence; Z79.51 Long term (current) use of inhaled steroids; Z79.82 Long term (current) use of aspirin; Z79.891 Long term (current) use of opiate analgesic; Z79.899 Other long term (current) drug therapy; Z88.0 Allergy status to penicillin; Z88.1 Allergy status to other antibiotic agents; Z88.5 Allergy status to narcotic agent; Z88.8 Allergy status to other drugs, medicaments and biological substances; Z91.048 Other nonmedicinal substance allergy status ==

== ENCOUNTER → 2024-02-07 | Outpatient (CLI) | payer MEDICARE, MEDICAID | LOC: M RAD 08:13 | PROVIDERS: ATTEND Nurse Practitioner Family | DX: M51.17 Intervertebral disc disorders with radiculopathy, lumbosacral region (principal); M48.061 Spinal stenosis, lumbar region without neurogenic claudication; M47.816 Spondylosis without myelopathy or radiculopathy, lumbar region ==

== ENCOUNTER → 2024-02-13 | Outpatient (CLI) | payer MEDICARE, MEDICAID | LOC: M PAIN 09:30 | PROVIDERS: ATTEND Nurse Practitioner Family | DX: M51.16 Intervertebral disc disorders with radiculopathy, lumbar region (principal); K76.0 Fatty (change of) liver, not elsewhere classified; I10 Essential (primary) hypertension; R73.01 Impaired fasting glucose; Z98.84 Bariatric surgery status; Z95.818 Presence of other cardiac implants and grafts; Z79.01 Long term (current) use of anticoagulants; Z79.51 Long term (current) use of inhaled steroids; Z79.82 Long term (current) use of aspirin; Z79.891 Long term (current) use of opiate analgesic; Z88.0 Allergy status to penicillin; Z88.2 Allergy status to sulfonamides; Z88.5 Allergy status to narcotic agent; Z88.8 Allergy status to other drugs, medicaments and biological substances; Z91.048 Other nonmedicinal substance allergy status ==

== ENCOUNTER → 2024-04-10 | Outpatient (CLI) | payer MEDICARE, MEDICAID ==
[2024-04-10 11:21] LABS: BASO # 0.1 10^3/uL (0.0-0.2); BASO % 1.1 % (0.0-1.0); EOS # 0.1 10^3/uL (0.0-0.5); EOS % 1.8 % (0.0-3.0); HEMATOCRIT 40.6 % (36.0-47.0); HEMOGLOBIN 12.6 g/dl (12.0-15.5); LYMPH # 1.8 10^3/uL (1.5-5.0); LYMPH % 25.1 % (24.0-44.0); MEAN CORPUSCULAR HEMOGLOBIN 29.3 pg (27.0-33.0); MEAN CORPUSCULAR VOLUME 94.4 fl (80.0-96.0); MONO # 0.5 10^3/uL (0.0-0.8); MONO % 6.5 % (2.0-8.0); NEUTROPHILS # 4.6 10^3/uL (1.5-8.5); NEUTROPHILS % 65.1 % (36.0-66.0); PLATELET COUNT, AUTOMATED 373 10^3/uL (150-450); WHITE BLOOD COUNT 7.1 10^3/uL (4.0-10.0)
[2024-04-10 11:26] LABS: ALBUMIN 3.9 G/DL (3.2-5.2); ALKALINE PHOSPHATASE 153 U/L (46-116); ALT/SGPT 21 U/L (7.0-40); AST/SGOT 15 U/L (<34); BILIRUBIN,TOTAL 0.6 MG/DL (0.3-1.2); BLOOD UREA NITROGEN 25 MG/DL (9-23); CALCIUM LEVEL 9.4 MG/DL (8.3-10.6); CARBON DIOXIDE LEVEL 29 MMOL/L (20-31); CHLORIDE LEVEL 108 MMOL/L (98-107); CHOLESTEROL LEVEL 153 MG/DL (<200); CHOLESTEROL RISK RATIO 2.33 (<5); CREATININE FOR GFR 0.73 MG/DL (0.55-1.30); GLOMERULAR FILTRATION RATE > 60.0 (>45); GLUCOSE, FASTING 99 MG/DL (74-106); HDL CHOLESTEROL 65.5 MG/DL (>40); LDL CHOLESTEROL 69.3 MG/DL (<100); NON-HDL-C 87.5 MG/DL; POTASSIUM SERUM 4.3 MMOL/L (3.5-5.1); PTH INTACT 52.5 PG/ML (18.5-88.0); SODIUM LEVEL 138 MMOL/L (136-145); TOTAL PROTEIN 7.1 G/DL (5.7-8.2); TRIGLYCERIDES LEVEL 91 MG/DL (<150)
[2024-04-10 11:28] LABS: FERRITIN 50.9 NG/ML (7.3-270.7)
[2024-04-10 11:29] LABS: TOTAL 25(OH) VITAMIN D 54.3 NG/ML (20.0-100.0)
[2024-04-10 11:53] LABS: HEMOGLOBIN A1c 5.4 % (4.0-6.0)
[2024-04-12 04:37] LABS: INSULIN LEVEL 9.8 uIU/mL (<=18.4)
== END ==
LOC: M PLALAB 07:47
PROVIDERS: ATTEND Family Medicine
DX: D50.9 Iron deficiency anemia, unspecified (principal); R73.01 Impaired fasting glucose; E55.9 Vitamin D deficiency, unspecified; Z98.84 Bariatric surgery status; I63.9 Cerebral infarction, unspecified; K76.0 Fatty (change of) liver, not elsewhere classified

== ENCOUNTER 2024-05-20 07:19 | Outpatient (RCR) | payer MEDICARE, MEDICAID | END 2024-05-25 | LOC: M PT 07:19 | PROVIDERS: ATTEND Nurse Practitioner Family | DX: M51.16 Intervertebral disc disorders with radiculopathy, lumbar region (principal) ==

== ENCOUNTER → 2024-06-09 | Outpatient (CLI) | payer MEDICARE, MEDICAID ==
[~2024-06-09] MED LIST changes: +ISOVUE-M 300 61% 15ML VIAL As Ordered ONE; +LIDOCAINE 1% SDV 30ML VIAL As Ordered ONE; +dexAMETHasone 10MG/1ML VIAL PRES.FREE As Ordered ONE; +diazePAM 2 MG TAB As Ordered ONE; +diphenhydrAMINE 25MG CAP As Ordered ONE; +oxyCODONE 5MG TAB As Ordered ONE
== END ==
LOC: M PAIN 14:15
PROVIDERS: ATTEND Anesthesiology
DX: M51.16 Intervertebral disc disorders with radiculopathy, lumbar region (principal); G89.29 Other chronic pain; K76.0 Fatty (change of) liver, not elsewhere classified; I10 Essential (primary) hypertension; R73.01 Impaired fasting glucose; D50.9 Iron deficiency anemia, unspecified; K21.9 Gastro-esophageal reflux disease without esophagitis; G47.33 Obstructive sleep apnea (adult) (pediatric); E66.01 Morbid (severe) obesity due to excess calories; I48.0 Paroxysmal atrial fibrillation; E55.9 Vitamin D deficiency, unspecified; Z98.84 Bariatric surgery status; Z95.818 Presence of other cardiac implants and grafts; Z79.01 Long term (current) use of anticoagulants; Z79.51 Long term (current) use of inhaled steroids; Z79.82 Long term (current) use of aspirin; Z79.891 Long term (current) use of opiate analgesic; Z88.0 Allergy status to penicillin; Z88.2 Allergy status to sulfonamides; Z88.5 Allergy status to narcotic agent; Z88.8 Allergy status to other drugs, medicaments and biological substances; Z91.048 Other nonmedicinal substance allergy status; Z88.1 Allergy status to other antibiotic agents; Z68.41 Body mass index [BMI] 40.0-44.9, adult
CPT/HCPCS: 62323; J1100; Q9967

== ENCOUNTER 2024-06-22 06:57 | Outpatient (RCR) | payer MEDICARE, MEDICAID ==
[~2024-06-22 06:57] MED LIST changes: -ISOVUE-M 300 61% 15ML VIAL As Ordered ONE; -LIDOCAINE 1% SDV 30ML VIAL As Ordered ONE; -dexAMETHasone 10MG/1ML VIAL PRES.FREE As Ordered ONE; -diazePAM 2 MG TAB As Ordered ONE; -diphenhydrAMINE 25MG CAP As Ordered ONE; -oxyCODONE 5MG TAB As Ordered ONE
== END 2024-06-25 ==
LOC: M PT 06:57
PROVIDERS: ATTEND Nurse Practitioner Family
DX: M51.16 Intervertebral disc disorders with radiculopathy, lumbar region (principal)

== ENCOUNTER → 2024-07-03 | Outpatient (CLI) | payer MEDICARE, MEDICAID ==
[~2024-07-03] MED LIST changes: +LEVA15HF2 INH; -LEVAINH INH
[2024-07-03 11:25] LABS: BASO # 0.1 10^3/uL (0.0-0.2); EOS # 0.2 10^3/uL (0.0-0.5); EOS % 2.2 % (0.0-3.0); HEMATOCRIT 38.6 % (36.0-47.0); HEMATOCRIT 38.8 % (36.0-47.0); HEMOGLOBIN 11.8 g/dl (12.0-15.5); LYMPH # 2.1 10^3/uL (1.5-5.0); LYMPH % 27.1 % (24.0-44.0); MEAN CORPUSCULAR HEMOGLOBIN 28.8 pg (27.0-33.0); MEAN CORPUSCULAR HGB CONC 30.6 g/dl (32.0-36.5); MEAN CORPUSCULAR VOLUME 94.1 fl (80.0-96.0); MONO # 0.7 10^3/uL (0.0-0.8); MONO % 8.9 % (2.0-8.0); NEUTROPHILS # 4.6 10^3/uL (1.5-8.5); NEUTROPHILS % 60.4 % (36.0-66.0); PLATELET COUNT, AUTOMATED 350 10^3/uL (150-450); WHITE BLOOD COUNT 7.6 10^3/uL (4.0-10.0)
[2024-07-03 11:33] LABS: ALBUMIN 3.7 G/DL (3.2-5.2); ALKALINE PHOSPHATASE 160 U/L (35-104); ALT/SGPT 15 U/L (7.0-40); AST/SGOT 9 U/L (<34); BILIRUBIN,TOTAL 0.4 MG/DL (0.3-1.2); BLOOD UREA NITROGEN 17 MG/DL (9-23); CALCIUM LEVEL 9.6 MG/DL (8.3-10.6); CARBON DIOXIDE LEVEL 30 MMOL/L (20-31); CHLORIDE LEVEL 107 MMOL/L (98-107); CREATININE FOR GFR 0.72 MG/DL (0.55-1.30); GLOMERULAR FILTRATION RATE > 60.0 (>45); GLUCOSE, FASTING 96 MG/DL (74-106); POTASSIUM SERUM 4.9 MMOL/L (3.5-5.1); SODIUM LEVEL 142 MMOL/L (136-145); TOTAL PROTEIN 6.9 G/DL (5.7-8.2)
[2024-07-03 11:34] LABS: PTH INTACT 92.5 PG/ML (18.5-88.0)
[2024-07-03 11:35] LABS: TOTAL 25(OH) VITAMIN D 44.9 NG/ML (20.0-100.0); VITAMIN B12 LEVEL 437 PG/ML (211-911)
[2024-07-03 11:58] LABS: HEMOGLOBIN A1c 5.4 % (4.0-6.0)
== END ==
LOC: M PLALAB 07:16
PROVIDERS: ATTEND Family Medicine
DX: D50.9 Iron deficiency anemia, unspecified (principal); E55.9 Vitamin D deficiency, unspecified; R73.01 Impaired fasting glucose; Z98.84 Bariatric surgery status; D51.9 Vitamin B12 deficiency anemia, unspecified

== ENCOUNTER → 2024-07-14 | Outpatient (CLI) | payer MEDICARE, MEDICAID | LOC: M PAIN 11:15 | PROVIDERS: ATTEND Nurse Practitioner Family | DX: M51.16 Intervertebral disc disorders with radiculopathy, lumbar region (principal); G89.29 Other chronic pain; I10 Essential (primary) hypertension; E55.9 Vitamin D deficiency, unspecified; D50.9 Iron deficiency anemia, unspecified; R73.01 Impaired fasting glucose; K21.9 Gastro-esophageal reflux disease without esophagitis; I48.91 Unspecified atrial fibrillation; G47.33 Obstructive sleep apnea (adult) (pediatric); M47.816 Spondylosis without myelopathy or radiculopathy, lumbar region; Z86.718 Personal history of other venous thrombosis and embolism; Z79.82 Long term (current) use of aspirin; Z79.01 Long term (current) use of anticoagulants; Z79.899 Other long term (current) drug therapy; Z98.84 Bariatric surgery status; Z87.891 Personal history of nicotine dependence; Z88.0 Allergy status to penicillin; Z88.1 Allergy status to other antibiotic agents; Z88.5 Allergy status to narcotic agent; Z88.8 Allergy status to other drugs, medicaments and biological substances; E66.01 Morbid (severe) obesity due to excess calories; Z68.41 Body mass index [BMI] 40.0-44.9, adult ==

== ENCOUNTER → 2024-07-29 | Outpatient (CLI) | payer MEDICARE, MEDICAID | LOC: M WHC 07:27 | PROVIDERS: ATTEND Family Medicine | DX: Z12.31 Encounter for screening mammogram for malignant neoplasm of breast (principal); R92.313 Mammographic fatty tissue density, bilateral breasts ==

== ENCOUNTER 2024-08-31 09:03 | Outpatient (CLI) | payer MEDICARE, MEDICAID ==
[~2024-08-31] VITALS: Ht 160 cm; Wt 107.7 kg
[~2024-08-31 09:03] MED LIST changes: +ALBUTEROL SULFATE 2.5MG/0.5ML INH NEB SOLN INH PRN; +EPINEPHrine INJ 1 MG/ML 1ML AMP IM PRN; +diphenhydrAMINE 50MG/ML VIAL IV PRN; +methylPREDNISolone 125MG 2ML VIAL IV PRN
[2024-08-31 09:30] VITALS: BP 128/70; O2SAT 98
[2024-08-31] MEDS: IRON SUCROSE 500 MG in NS 250 ML OVER 4 HRS IV ONE (10:22)
[2024-08-31 11:32] VITALS: BP 154/64; O2SAT 99
[2024-08-31 12:30] VITALS: BP 130/81; O2SAT 98
[2024-08-31 13:30] VITALS: BP 139/89; O2SAT 98
[2024-08-31 14:15] VITALS: BP 157/90; O2SAT 98
== END 2024-08-31 14:30 ==
LOC: M INFU 09:03
PROVIDERS: ATTEND Family Medicine
DX: D50.9 Iron deficiency anemia, unspecified (principal); Z88.0 Allergy status to penicillin; Z88.1 Allergy status to other antibiotic agents; Z88.2 Allergy status to sulfonamides; Z88.5 Allergy status to narcotic agent; Z88.8 Allergy status to other drugs, medicaments and biological substances
CPT/HCPCS: 96365; 96366; J1756

== ENCOUNTER 2024-09-07 08:55 | Outpatient (CLI) | payer MEDICARE, MEDICAID ==
[~2024-09-07] VITALS: Ht 160 cm; Wt 107.7 kg
[2024-09-07 09:00] VITALS: BP 138/63; O2SAT 98
[2024-09-07] MEDS: IRON SUCROSE 500 MG in NS 250 ML OVER 4 HRS IV ONE (09:33)
[2024-09-07] MEDS ORDERED: PERCOCET PO (09:36)
[2024-09-07 10:30] VITALS: BP 150/71; O2SAT 98
[2024-09-07 11:30] VITALS: BP 150/67; O2SAT 96
[2024-09-07 12:30] VITALS: BP 149/70; O2SAT 97
[2024-09-07 13:36] VITALS: BP 125/52; O2SAT 97
== END 2024-09-07 13:40 ==
LOC: M INFU 08:55
PROVIDERS: ATTEND Family Medicine
DX: D50.9 Iron deficiency anemia, unspecified (principal); Z88.0 Allergy status to penicillin; Z88.2 Allergy status to sulfonamides; Z88.8 Allergy status to other drugs, medicaments and biological substances; Z88.5 Allergy status to narcotic agent
CPT/HCPCS: 96365; 96366; J1756

== ENCOUNTER → 2024-09-14 | Outpatient (CLI) | payer MEDICARE, MEDICAID ==
[~2024-09-14] MED LIST changes: -ALBUTEROL SULFATE 2.5MG/0.5ML INH NEB SOLN INH PRN; -EPINEPHrine INJ 1 MG/ML 1ML AMP IM PRN; +PERCOCET PO; -diphenhydrAMINE 50MG/ML VIAL IV PRN; -methylPREDNISolone 125MG 2ML VIAL IV PRN
== END ==
LOC: M PAIN 09:00
PROVIDERS: ATTEND Nurse Practitioner Family
DX: M51.16 Intervertebral disc disorders with radiculopathy, lumbar region (principal); G89.29 Other chronic pain; Z79.891 Long term (current) use of opiate analgesic; Z79.82 Long term (current) use of aspirin; Z79.01 Long term (current) use of anticoagulants; Z79.899 Other long term (current) drug therapy; Z87.891 Personal history of nicotine dependence; I10 Essential (primary) hypertension; K21.9 Gastro-esophageal reflux disease without esophagitis; I48.91 Unspecified atrial fibrillation; M47.816 Spondylosis without myelopathy or radiculopathy, lumbar region; Z86.718 Personal history of other venous thrombosis and embolism; Z98.84 Bariatric surgery status; Z88.0 Allergy status to penicillin; Z88.1 Allergy status to other antibiotic agents; Z88.5 Allergy status to narcotic agent; Z88.8 Allergy status to other drugs, medicaments and biological substances; E66.01 Morbid (severe) obesity due to excess calories; Z68.41 Body mass index [BMI] 40.0-44.9, adult

== ENCOUNTER → 2024-09-30 | Outpatient (CLI) | payer MEDICARE, MEDICAID ==
[2024-09-30 11:33] LABS: BASO # 0.1 10^3/uL (0.0-0.2); BASO % 1.2 % (0.0-1.0); EOS # 0.2 10^3/uL (0.0-0.5); EOS % 2.4 % (0.0-3.0); HEMATOCRIT 40.1 % (36.0-47.0); HEMOGLOBIN 12.2 g/dl (12.0-15.5); LYMPH # 1.8 10^3/uL (1.5-5.0); LYMPH % 27.1 % (24.0-44.0); MEAN CORPUSCULAR HEMOGLOBIN 28.9 pg (27.0-33.0); MEAN CORPUSCULAR HGB CONC 30.4 g/dl (32.0-36.5); MONO # 0.5 10^3/uL (0.0-0.8); MONO % 6.8 % (2.0-8.0); NEUTROPHILS # 4.2 10^3/uL (1.5-8.5); NEUTROPHILS % 61.9 % (36.0-66.0); PLATELET COUNT, AUTOMATED 314 10^3/uL (150-450); RED BLOOD COUNT 4.22 10^6/uL (4.00-5.40); WHITE BLOOD COUNT 6.8 10^3/uL (4.0-10.0)
[2024-09-30 11:59] LABS: FERRITIN 194.4 NG/ML (7.3-270.7); THYROID STIMULATING HORMONE 3.221 uIU/ML (0.55-4.78)
[2024-09-30 12:00] LABS: ALBUMIN 3.8 G/DL (3.2-5.2); ALKALINE PHOSPHATASE 159 U/L (35-104); ALT/SGPT 16 U/L (7.0-40); AST/SGOT 16 U/L (<34); BILIRUBIN,TOTAL 0.4 MG/DL (0.3-1.2); BLOOD UREA NITROGEN 21 MG/DL (9-23); CALCIUM LEVEL 9.5 MG/DL (8.3-10.6); CARBON DIOXIDE LEVEL 29 MMOL/L (20-31); CHLORIDE LEVEL 107 MMOL/L (98-107); CHOLESTEROL LEVEL 157 MG/DL (<200); CHOLESTEROL RISK RATIO 2.24 (<5); CREATININE FOR GFR 0.72 MG/DL (0.55-1.30); GLOMERULAR FILTRATION RATE > 60.0 (>45); GLUCOSE, FASTING 95 MG/DL (74-106); LDL CHOLESTEROL 67.8 MG/DL (<100); POTASSIUM SERUM 4.5 MMOL/L (3.5-5.1); SODIUM LEVEL 144 MMOL/L (136-145); TOTAL 25(OH) VITAMIN D 31.3 NG/ML (20.0-100.0); TRIGLYCERIDES LEVEL 96 MG/DL (<150)
[2024-09-30 12:01] LABS: PTH INTACT 54.8 PG/ML (18.5-88.0)
[2024-09-30 12:02] LABS: FREE T4 1.13 NG/DL (0.89-1.76)
== END ==
LOC: M PLALAB 07:28
PROVIDERS: ATTEND Family Medicine
DX: D50.9 Iron deficiency anemia, unspecified (principal); E55.9 Vitamin D deficiency, unspecified; E06.3 Autoimmune thyroiditis

== ENCOUNTER → 2024-10-02 | Outpatient (REF) | payer MEDICARE, MEDICAID ==
[2024-10-02 16:49] LABS: APPEARANCE, URINE CLEAR (CLEAR); BACTERIA, URINE AUTO NEGATIVE (NEGATIVE); BILIRUBIN, URINE AUTO NEGATIVE (NEGATIVE); BLOOD, URINE BLOOD NEGATIVE (NEGATIVE); COLOR, URINE YELLOW (YELLOW); GLUCOSE, URINE (UA) AUTO NEGATIVE (NEGATIVE); KETONE, URINE AUTO NEGATIVE (NEGATIVE); LEUKOCYTE ESTERASE, URINE AUTO NEGATIVE (NEGATIVE); MUCUS, URINE SMALL (NEGATIVE); NITRITE, URINE AUTO NEGATIVE (NEGATIVE); PROTEIN, URINE AUTO NEGATIVE (NEGATIVE); RBC, URINE AUTO 0 /HPF (0-3); SPECIFIC GRAVITY URINE AUTO 1.012 (1.002-1.035); SQUAMOUS EPITHELIAL CELL UR AU 2 /HPF (0-6); UROBILINOGEN, URINE AUTO 0.2 mg/dL (0.0-2.0); WBC, URINE AUTO 0 /HPF (0-3)
== END ==
LOC: M LAB REF 16:02
PROVIDERS: ATTEND Physician Assistant
DX: N39.0 Urinary tract infection, site not specified (principal)

== ENCOUNTER 2024-10-19 10:52 | Outpatient (CLI) | payer MEDICARE, MEDICAID ==
[~2024-10-19] VITALS: Ht 160 cm; Wt 107.7 kg
[~2024-10-19 10:52] MED LIST changes: +ZOLEDRONIC ACID 5 MG in IV 1 EA IV ONE
[2024-10-19 11:30] VITALS: BP 146/66; O2SAT 99
[2024-10-19] MEDS: ZOLEDRONIC ACID 5 MG in IV 1 EA IV ONE (11:39)
[2024-10-19 12:45] VITALS: BP 163/77; O2SAT 98
== END 2024-10-19 12:30 ==
LOC: M INFU 10:52
PROVIDERS: ATTEND Family Medicine
DX: M85.80 Other specified disorders of bone density and structure, unspecified site (principal); Z88.0 Allergy status to penicillin; Z88.2 Allergy status to sulfonamides; Z88.5 Allergy status to narcotic agent; Z88.8 Allergy status to other drugs, medicaments and biological substances
CPT/HCPCS: 96365; J3489

== ENCOUNTER 2024-10-26 10:16 | Emergency (ER) | payer MEDICARE, MEDICAID ==
[~2024-10-26] VITALS: Ht 160 cm; Wt 109.2 kg
[~2024-10-26 10:16] MED LIST changes: -ZOLEDRONIC ACID 5 MG in IV 1 EA IV ONE
[2024-10-26 10:30] VITALS: TEMP 99
[2024-10-26] MEDS ORDERED: VARE0.03 (10:45)
[2024-10-26] MEDS ORDERED: SYMB80INH (10:45)
[2024-10-26] MEDS ORDERED: ELIQ5TAB (10:45)
[2024-10-26] MEDS ORDERED: CYCLOBENZAPRINE 5MG TABLET PO ONE (15:25)
[2024-10-26] MEDS: ACETAMINOPHEN 500 MG TAB PO ONE (15:29)
[2024-10-26] MEDS: diazePAM 5MG TABLET PO ONE (15:29)
[2024-10-26] MEDS: KETOROLAC 30 MG/ML 1ML VIAL IM ONE (15:30)
[2024-10-26 15:50] VITALS: BP 141/76; O2SAT 91
[2024-10-26] MEDS ORDERED: MEDR4PAK PO (15:53)
[2024-10-26] MEDS ORDERED: TIZA10TA PO (15:53)
== END 2024-10-26 16:04 | disposition home or self-care (01) ==
LOC: M ED 10:16
DX: S13.4XXA Sprain of ligaments of cervical spine, initial encounter (principal); X50.0XXA Overexertion from strenuous movement or load, initial encounter; M25.78 Osteophyte, vertebrae; M50.222 Other cervical disc displacement at C5-C6 level; M50.223 Other cervical disc displacement at C6-C7 level; G47.33 Obstructive sleep apnea (adult) (pediatric); K21.9 Gastro-esophageal reflux disease without esophagitis; Z79.52 Long term (current) use of systemic steroids; Z79.01 Long term (current) use of anticoagulants; Z79.899 Other long term (current) drug therapy; Z79.1 Long term (current) use of non-steroidal anti-inflammatories (NSAID); Z88.0 Allergy status to penicillin; Z88.2 Allergy status to sulfonamides; Z88.5 Allergy status to narcotic agent; Z88.8 Allergy status to other drugs, medicaments and biological substances; Z86.79 Personal history of other diseases of the circulatory system; Z98.84 Bariatric surgery status; Z87.891 Personal history of nicotine dependence; Y92.9 Unspecified place or not applicable; Y93.89 Activity, other specified; Y99.9 Unspecified external cause status
CPT/HCPCS: 72125; 96372; 99283; J1885

== ENCOUNTER → 2024-12-07 | Outpatient (CLI) | payer MEDICARE, MEDICAID ==
[~2024-12-07] MED LIST changes: +ELIQ5TAB; +MEDR4PAK PO; +SYMB80INH; +TIZA10TA PO; +VARE0.03
[2024-12-07 10:59] LABS: BASO # 0.1 10^3/uL (0.0-0.2); BASO % 1.3 % (0.0-1.0); EOS # 0.2 10^3/uL (0.0-0.5); EOS % 2.2 % (0.0-3.0); HEMATOCRIT 40.5 % (36.0-47.0); HEMOGLOBIN 12.2 g/dl (12.0-15.5); LYMPH # 1.8 10^3/uL (1.5-5.0); LYMPH % 26.2 % (24.0-44.0); MEAN CORPUSCULAR HEMOGLOBIN 29.1 pg (27.0-33.0); MEAN CORPUSCULAR HGB CONC 30.1 g/dl (32.0-36.5); MEAN CORPUSCULAR VOLUME 96.7 fl (80.0-96.0); MONO # 0.5 10^3/uL (0.0-0.8); MONO % 6.7 % (2.0-8.0); NEUTROPHILS # 4.4 10^3/uL (1.5-8.5); NEUTROPHILS % 63.3 % (36.0-66.0); PLATELET COUNT, AUTOMATED 331 10^3/uL (150-450); RED BLOOD COUNT 4.19 10^6/uL (4.00-5.40); WHITE BLOOD COUNT 6.9 10^3/uL (4.0-10.0)
[2024-12-07 11:05] LABS: HEMATOCRIT 40.3 % (36.0-47.0)
[2024-12-07 11:18] LABS: HEMOGLOBIN A1c 5.2 % (4.0-6.0)
[2024-12-07 11:28] LABS: ALBUMIN 3.7 G/DL (3.2-5.2); ALKALINE PHOSPHATASE 141 U/L (35-104); ALT/SGPT 19 U/L (7.0-40); AST/SGOT 16 U/L (<34); BILIRUBIN,TOTAL 0.5 MG/DL (0.3-1.2); BLOOD UREA NITROGEN 17 MG/DL (9-23); CALCIUM LEVEL 8.7 MG/DL (8.3-10.6); CARBON DIOXIDE LEVEL 28 MMOL/L (20-31); CHLORIDE LEVEL 106 MMOL/L (98-107); CHOLESTEROL LEVEL 140 MG/DL (<200); CHOLESTEROL RISK RATIO 1.96 (<5); CREATININE FOR GFR 0.65 MG/DL (0.55-1.30); GLOMERULAR FILTRATION RATE > 90.0 (>45); GLUCOSE, FASTING 90 MG/DL (74-106); HDL CHOLESTEROL 71.3 MG/DL (>40); LDL CHOLESTEROL 52.9 MG/DL (<100); NON-HDL-C 68.7 MG/DL; POTASSIUM SERUM 4.2 MMOL/L (3.5-5.1); SODIUM LEVEL 140 MMOL/L (136-145); TOTAL PROTEIN 6.7 G/DL (5.7-8.2); TRIGLYCERIDES LEVEL 79 MG/DL (<150)
[2024-12-07 11:31] LABS: FREE T4 1.03 NG/DL (0.89-1.76)
[2024-12-07 11:32] LABS: FERRITIN 141.4 NG/ML (7.3-270.7)
== END ==
LOC: M PLALAB 07:38
PROVIDERS: ATTEND Family Medicine
DX: D50.9 Iron deficiency anemia, unspecified (principal); E55.9 Vitamin D deficiency, unspecified; E06.3 Autoimmune thyroiditis; I63.9 Cerebral infarction, unspecified; Z98.84 Bariatric surgery status; R73.01 Impaired fasting glucose

== ENCOUNTER → 2024-12-07 | Outpatient (CLI) | payer MEDICARE, MEDICAID ==
[2024-12-07 10:57] LABS: BASO # 0.1 10^3/uL (0.0-0.2); BASO % 0.9 % (0.0-1.0); EOS # 0.1 10^3/uL (0.0-0.5); EOS % 1.9 % (0.0-3.0); HEMATOCRIT 39.6 % (36.0-47.0); HEMOGLOBIN 12.3 g/dl (12.0-15.5); LYMPH # 1.8 10^3/uL (1.5-5.0); LYMPH % 25.3 % (24.0-44.0); MEAN CORPUSCULAR HEMOGLOBIN 29.4 pg (27.0-33.0); MEAN CORPUSCULAR HGB CONC 31.1 g/dl (32.0-36.5); MEAN CORPUSCULAR VOLUME 94.7 fl (80.0-96.0); MONO # 0.5 10^3/uL (0.0-0.8); MONO % 6.8 % (2.0-8.0); NEUTROPHILS # 4.5 10^3/uL (1.5-8.5); NEUTROPHILS % 64.7 % (36.0-66.0); PLATELET COUNT, AUTOMATED 327 10^3/uL (150-450); RED BLOOD COUNT 4.18 10^6/uL (4.00-5.40)
[2024-12-07 11:27] LABS: BLOOD UREA NITROGEN 17 MG/DL (9-23); CALCIUM LEVEL 8.8 MG/DL (8.3-10.6); CARBON DIOXIDE LEVEL 29 MMOL/L (20-31); CHLORIDE LEVEL 107 MMOL/L (98-107); CREATININE FOR GFR 0.66 MG/DL (0.55-1.30); GLOMERULAR FILTRATION RATE > 90.0 (>45); GLUCOSE, FASTING 91 MG/DL (74-106); POTASSIUM SERUM 4.5 MMOL/L (3.5-5.1); SODIUM LEVEL 144 MMOL/L (136-145)
== END ==
LOC: M PLALAB 07:41
PROVIDERS: ATTEND Internal Medicine Cardiovascular Disease
DX: I48.0 Paroxysmal atrial fibrillation (principal); I50.9 Heart failure, unspecified

== ENCOUNTER 2025-01-06 10:53 | Observation (INO) | payer MEDICARE, MEDICAID ==
[~2025-01-06] VITALS: Ht 160 cm; Wt 108.8 kg
[~2025-01-06 10:53] MED LIST changes: -ELIQ5TAB; +ELIQ5TAB PO; -SYMB80INH; +SYMB80INH INH
[2025-01-06 12:10] LABS: BASO # 0.1 10^3/uL (0.0-0.2); BASO % 0.8 % (0.0-1.0); EOS # 0.2 10^3/uL (0.0-0.5); HEMOGLOBIN 9.5 g/dl (12.0-15.5); LYMPH # 0.9 10^3/uL (1.5-5.0); LYMPH % 15.2 % (24.0-44.0); MEAN CORPUSCULAR HEMOGLOBIN 29.6 pg (27.0-33.0); MEAN CORPUSCULAR HGB CONC 30.6 g/dl (32.0-36.5); MEAN CORPUSCULAR VOLUME 96.6 fl (80.0-96.0); MONO # 0.5 10^3/uL (0.0-0.8); MONO % 8.4 % (2.0-8.0); NEUTROPHILS # 4.4 10^3/uL (1.5-8.5); NEUTROPHILS % 72.1 % (36.0-66.0); PLATELET COUNT, AUTOMATED 319 10^3/uL (150-450); RED BLOOD COUNT 3.21 10^6/uL (4.00-5.40); WHITE BLOOD COUNT 6.1 10^3/uL (4.0-10.0)
[2025-01-06] MEDS ORDERED: NITROGLYCERIN 0.4MG SUBL TABLET SL PRN (12:20)
[2025-01-06 12:32] LABS: INR 1.26; PARTIAL THROMBOPLASTIN TIME 32.1 SECONDS (24.8-34.2); PROTHROMBIN TIME 16.1 SECONDS (12.5-14.5)
[2025-01-06 12:47] LABS: CK-MB VALUE MASS < 1.0 NG/ML (<3.6)
[2025-01-06 12:49] LABS: ALBUMIN 3.3 G/DL (3.2-5.2); ALKALINE PHOSPHATASE 192 U/L (35-104); ALT/SGPT 32 U/L (7.0-40); AST/SGOT 66 U/L (<34); BILIRUBIN,DIRECT 0.2 MG/DL (<0.4); BILIRUBIN,TOTAL 0.4 MG/DL (0.3-1.2); BLOOD UREA NITROGEN 17 MG/DL (9-23); CALCIUM LEVEL 8.4 MG/DL (8.3-10.6); CARBON DIOXIDE LEVEL 25 MMOL/L (20-31); CHLORIDE LEVEL 112 MMOL/L (98-107); CREATININE FOR GFR 0.74 MG/DL (0.55-1.30); GLOMERULAR FILTRATION RATE 87.5 (>45); GLUCOSE, FASTING 92 MG/DL (74-106); POTASSIUM SERUM 4.2 MMOL/L (3.5-5.1); SODIUM LEVEL 145 MMOL/L (136-145)
[2025-01-06 12:54] LABS: CPK CREATINE PHOSPHOKINASE 68 U/L (34-145); MB/CK RELATIVE INDEX 1.47 (< OR =4)
[2025-01-06] MEDS ORDERED: ISOVUE-370 76% 100ML VIAL As Ordered ONE (13:06)
[2025-01-06 13:11] LABS: CK-MB VALUE MASS < 1.0 NG/ML (<3.6)
[2025-01-06 13:16] LABS: CPK CREATINE PHOSPHOKINASE 71 U/L (34-145)
[2025-01-06] MEDS: FUROSEMIDE 40MG/4ML VIAL IV ONE (14:52)
[2025-01-06 15:20] LABS: CK-MB VALUE MASS < 1.0 NG/ML (<3.6)
[2025-01-06 15:21] LABS: CPK CREATINE PHOSPHOKINASE 67 U/L (34-145); MB/CK RELATIVE INDEX 1.49 (< OR =4)
[2025-01-06] MEDS: ALBUTEROL SULFATE 2.5MG/0.5ML INH CONCENTRATE NEB SOLN NEB ONE (15:56)
[2025-01-06 16:15] VITALS: O2SAT 96
[2025-01-06] MEDS ORDERED: ACET650T15 PO (16:34)
[2025-01-06] MEDS ORDERED: OXYC1TAB23 PO (16:34)
[2025-01-06] MEDS ORDERED: ASPI81TA26 PO (16:34)
[2025-01-06] MEDS ORDERED: CEPH500C PO (16:34)
[2025-01-06] MEDS ORDERED: vitamin b complex INJ (16:34)
[2025-01-06] MEDS ORDERED: NYST15PO3 TOP (16:34)
[2025-01-06] MEDS ORDERED: C 50TAB PO (16:34)
[2025-01-06] MEDS ORDERED: HOME MED LIST COMPLETE! XX SCH (16:35)
[2025-01-06] MEDS ORDERED: FUROSEMIDE 40MG/4ML VIAL IV SCH (17:00)
[2025-01-06] MEDS ORDERED: CYCLOBENZAPRINE 10MG TABLET PO PRN (17:10)
[2025-01-06] MEDS ORDERED: NYSTATIN 100,000 UNITS/GM TOPICAL PWD 15GM TOP PRN (17:10)
[2025-01-06] MEDS ORDERED: PERCOCET 5MG/325MG TAB PO PRN (17:10)
[2025-01-06 18:00] VITALS: BP 115/70; TEMP 97.5; O2SAT 95
[2025-01-06] MEDS: amLODIPine 5 MG TAB PO ONE (18:10)
[2025-01-06] MEDS: SUCRALFATE 1 GM TAB PO SCH (18:10)
[2025-01-06 18:57] LABS: INR 1.1; PARTIAL THROMBOPLASTIN TIME 30.7 SECONDS (24.8-34.2); PROTHROMBIN TIME 14.5 SECONDS (12.5-14.5)
[2025-01-06] MEDS: SYMBICORT 80/4.5MCG INHALER 6GM INH SCH (19:38)
[2025-01-06 19:42] VITALS: BP 160/69; TEMP 97.7; O2SAT 95
[2025-01-06] MEDS: CEPHALEXIN 500 MG CAP PO SCH (20:09)
[2025-01-06] MEDS: APIXABAN 5 MG TAB PO SCH (20:09)
[2025-01-06] MEDS: FERROUS SULFATE 325MG TAB PO SCH (20:09)
[2025-01-06] MEDS: PANTOPRAZOLE 40MG TAB PO SCH (20:09)
[2025-01-06] MEDS: VITAMIN D 1,000 INTERNATIONAL UNITS TABLET PO SCH (20:09)
[2025-01-06] MEDS: ASCORBIC ACID 500 MG TAB PO SCH (20:10)
[2025-01-06 21:48] VITALS: BP 135/56
[2025-01-07 03:54] VITALS: BP 136/53; TEMP 97.7; O2SAT 96
[2025-01-07 06:42] LABS: HEMATOCRIT 31.9 % (36.0-47.0); HEMOGLOBIN 9.9 g/dl (12.0-15.5); MEAN CORPUSCULAR HEMOGLOBIN 29.5 pg (27.0-33.0); MEAN CORPUSCULAR VOLUME 94.9 fl (80.0-96.0); PLATELET COUNT, AUTOMATED 339 10^3/uL (150-450); RED BLOOD COUNT 3.36 10^6/uL (4.00-5.40); WHITE BLOOD COUNT 6.6 10^3/uL (4.0-10.0)
[2025-01-07 07:09] LABS: ALBUMIN 3.6 G/DL (3.2-5.2); BILIRUBIN,TOTAL 0.5 MG/DL (0.3-1.2); CALCIUM LEVEL 8.8 MG/DL (8.3-10.6); CREATININE FOR GFR 0.78 MG/DL (0.55-1.30); GLOMERULAR FILTRATION RATE 82.2 (>45); POTASSIUM SERUM 3.8 MMOL/L (3.5-5.1); TOTAL PROTEIN 6.5 G/DL (5.7-8.2)
[2025-01-07] MEDS: MULTIVITAMINS/MINERALS THERAP 1 TAB PO ONE (09:36)
[2025-01-07] MEDS: FUROSEMIDE 40MG/4ML VIAL IV SCH (09:36)
[2025-01-07] MEDS: ASPIRIN 81MG ENTERIC TABLET PO SCH (09:36)
[2025-01-07] MEDS: ACETAMINOPHEN 650MG ER TAB (TYLENOL ARTHRITIS) PO SCH (09:37)
[2025-01-07] MEDS: amLODIPine 5 MG TAB PO SCH (09:37)
[2025-01-07] MEDS: ALBUTEROL 90 MCG/ACT 8GM HFA INHALER INH PRN (17:43)
[2025-01-07 20:54] VITALS: BP 153/87; TEMP 97.9; O2SAT 96
[2025-01-07] MEDS: COLCHICINE 0.6 MG TABLET PO SCH (20:57)
[2025-01-08 04:16] VITALS: BP 114/47; TEMP 97.7; O2SAT 97
[2025-01-08 06:25] LABS: HEMATOCRIT 33.3 % (36.0-47.0); HEMOGLOBIN 10.4 g/dl (12.0-15.5); MEAN CORPUSCULAR HEMOGLOBIN 29.5 pg (27.0-33.0); MEAN CORPUSCULAR HGB CONC 31.2 g/dl (32.0-36.5); MEAN CORPUSCULAR VOLUME 94.3 fl (80.0-96.0); PLATELET COUNT, AUTOMATED 383 10^3/uL (150-450); RED BLOOD COUNT 3.53 10^6/uL (4.00-5.40)
[2025-01-08 06:59] LABS: ALBUMIN 3.6 G/DL (3.2-5.2); BILIRUBIN,TOTAL 0.4 MG/DL (0.3-1.2); CREATININE FOR GFR 0.8 MG/DL (0.55-1.30); GLOMERULAR FILTRATION RATE 79.7 (>45); POTASSIUM SERUM 3.8 MMOL/L (3.5-5.1); TOTAL PROTEIN 6.5 G/DL (5.7-8.2)
[2025-01-08 08:26] VITALS: BP 110/58
[2025-01-08] MEDS ORDERED: AMLO1TAB25 PO (08:26)
[2025-01-08] MEDS ORDERED: PRED20TA PO (08:26)
[2025-01-08] MEDS ORDERED: LASI20TA3 PO (08:26)
[2025-01-08] MEDS ORDERED: COLC0.6T47 PO (08:26)
[2025-01-08] MEDS: predniSONE 20 MG TAB PO SCH (08:32)
[2025-01-08 12:00] VITALS: BP 153/81; TEMP 97.3; O2SAT 96
== END 2025-01-08 12:26 | disposition home or self-care (01) ==
LOC: EDBD 10:53 → M ED 10:53 → M ED INP 10:54 → EEVIPCON 10:54 → M MSPAV 17:57
PROVIDERS: ADMIT Internal Medicine; ATTEND Internal Medicine
DX: I31.39 Other pericardial effusion (noninflammatory) (principal); J90 Pleural effusion, not elsewhere classified; R06.02 Shortness of breath; R07.9 Chest pain, unspecified; I10 Essential (primary) hypertension; L03.116 Cellulitis of left lower limb; K76.0 Fatty (change of) liver, not elsewhere classified; E55.9 Vitamin D deficiency, unspecified; D50.9 Iron deficiency anemia, unspecified; I48.91 Unspecified atrial fibrillation; G47.33 Obstructive sleep apnea (adult) (pediatric); Z79.01 Long term (current) use of anticoagulants; Z79.82 Long term (current) use of aspirin; Z79.52 Long term (current) use of systemic steroids; Z79.899 Other long term (current) drug therapy
CPT/HCPCS: 36415; 71045; 71275; 80047; 80048; 80053; 80076; 82550; 82553; 83880; 84484; 85025; 85027; 85610; 85730; 93005; 93041; 93306; 93971; 94640; 94664; 94760; 96374; 96376; 97161; 99285; G0378; J1938; J7512; Q9967

== ENCOUNTER → 2025-08-03 | Outpatient (CLI) | payer MEDICARE, MEDICAID ==
[~2025-08-03] MED LIST changes: +ACET-1515 PO; +AMLO1TAB25 PO; +ASPI81TA26 PO; +C 50TAB PO; +CEPH500C PO; +COLC0.6T53 PO; +LASI20TA3 PO; +NYST15PO3 TOP; +PRED20TA PO; +vitamin b complex INJ
== END ==
LOC: M WHC 08:01
PROVIDERS: ATTEND Family Medicine
DX: Z13.820 Encounter for screening for osteoporosis (principal); Z12.31 Encounter for screening mammogram for malignant neoplasm of breast; M85.851 Other specified disorders of bone density and structure, right thigh; M85.852 Other specified disorders of bone density and structure, left thigh